=== PATIENT | male | born 1945 | race Caucasian/White ===

== ENCOUNTER 2016-09-09 16:49 | Observation (INO) ==
[2016-09-09] MEDS ORDERED: 0.9 % Sodium Chloride 1,000 ML IVC ONE (16:55)
[2016-09-09 17:49] LABS: Basophils # 0.1 K/mcL (0.0-0.2); Basophils % 0.7 %; Eosinophils # 0.5 K/mcL (0.0-0.6); Eosinophils % 4.7 %; Hematocrit 38.8 % (37.5-50.1); Immature Granulocytes % 0.6 % (0-4); Lymphocytes # 1.9 K/mcL (0.6-4.6); Lymphocytes % 18.9 %; Mean Corpuscular HGB Conc 36.1 g/dL (31.6-35.5); Mean Corpuscular Hemoglobin 30.9 pg (28.0-33.3); Mean Corpuscular Volume 85.7 fL (83.0-100.0); Mean Platelet Volume 10.6 fL (9.4-12.4); Monocytes # 0.7 K/mcL (0.0-1.3); Neutrophils # 6.8 K/mcL (1.6-8.9); Platelet Count 186 K/mcL (140-400); Red Blood Count 4.53 M/mcL (4.19-5.50); Red Cell Distribution Width 12.5 % (11.5-14.5); Segmented Neutrophils % 68.1 %
[2016-09-09 17:56] LABS: BUN/Creatinine Ratio 21 (6-26); Blood Urea Nitrogen 18 mg/dL (8-26); Calcium 9.8 mg/dL (8.6-10.8); Carbon Dioxide 22 mEq/L (19-29); Chloride 105 mEq/L (98-109); Glucose 164 mg/dL (70-99); Osmolality,Calculated 290 (280-300); Potassium 4.2 mEq/L (3.5-4.5); Sodium 137 mEq/L (136-145); eGFR For African Americans > 60 (> 60); eGFR For Non-African Americans > 60 (> 60)
--- NOTE | 2016-09-09 18:24 | Emergency Department Note ---
Disposition Clinical Impression: Syncope and collapse, Minor closed head injury Disposition: Admitted As Inpatient Condition: Good Time of Disposition: 20:05 Syncope HPI - General Chief Complaint: ED Syncope Stated Complaint: Passed out Time Seen by Provider: 09/09/16 16:55 Source: patient, EMS Limitations: no limitations Nursing Notes Reviewed: Yes Vital Signs Reviewed: Yes - History of Present Illness HPI Narrative: 70-year-old male with a history of CAD, insulin-dependent diabetes, hypertension presents to the emergency department after a syncope episode. He was walking around [employer], then he was loading the car and fell to the ground. He did hit the back of his head. Patient states he does not remember the episode and EMS had to help him off the ground. Upon awakening he had a vomiting episode. He does not remember if he had any preceding symptoms but currently he feels generally weak all over. He denies any headache but does have some pain in the back of his head where he denies any neck pain or pain with neck movement. Denies any back pain. Denies any abdominal pain, nausea vomiting. Denies any chest pain, pressure or shortness of breath. Earlier today he was at a urologist office and he had another fall but did not lose consciousness at that time. He reports bladder incontinence and this is why he is seeing the urologist in [place]. He reports chronic lower extremity weakness and went to rehabilitation in the past. Denies any history of a bad back but states he might have herniated disks. The urologist is going to do some sort of nerve testing on his bladder. - Related Data Home Medications Medication Instructions Recorded Confirmed Atorvastatin [Lipitor] 40 mg PO HS 11/27/15 09/09/16 Carvedilol [Coreg] 6.25 mg PO BIDWM 11/27/15 09/09/16 Furosemide [Lasix] 40 mg PO DAILY 11/27/15 09/09/16 Glimepiride [Amaryl] 4 mg PO QAM 11/27/15 09/09/16 Insulin Glargine [Lantus] 65 unit SQ HS 11/27/15 09/09/16 Loratadine [Claritin] 10 mg PO DAILY 11/27/15 09/09/16 Metformin HCl [Glucophage] 1,000 mg PO BID 11/27/15 09/09/16 Potassium Chloride [K-Tab ER] 10 meq PO DAILY 11/27/15 09/09/16 Ropinirole HCl [Requip] 0.25 mg PO HS 11/27/15 09/09/16 Esomeprazole Magnesium [Nexium] 40 mg PO DAILY 02/25/16 09/09/16 Citalopram [CeleXA] 20 mg PO DAILY 04/21/16 09/09/16 Multivitamin [One Daily Essential] 1 tab PO DAILY 04/21/16 09/09/16 HYDROcodone/Acet 7.5/325 mg [[place] 1 tab PO Q6H PRN 09/09/16 09/09/16 7.5-325 mg] Losartan Potassium [Cozaar] 100 mg PO DAILY 09/09/16 09/09/16 Previous Rx's Medication Instructions Recorded Aspirin Enteric Coated [Aspirin EC] 81 mg PO DAILY #30 tablet. 11/28/15 Amitriptyline [Elavil] 25 mg PO QPM #30 tablet 02/27/16 Allergies Allergy/AdvReac Type Severity Reaction Status Date / Time Penicillins [PCN] Allergy Hives Verified 05/01/16 11:33 shellfish derived Allergy Hives Verified 05/01/16 11:33 All systems ED: reviewed and negative except as stated. Constitutional: Denies: fever Cardiovascular: Denies: chest pain Respiratory: Denies: cough, dyspnea Gastrointestinal: Denies: abdominal pain Musculoskeletal: Denies: back pain Neurological: Reports: headache. Denies: numbness Past Medical History - Past Medical History Attestation: Yes The following information was validated with the patient. Medical history: Reports: CHF, diabetes, hyperlipidemia, hypertension Psychiatric history: Reports: depression - Social History Smoking Status: Former smoker Smokeless Tobacco Status: No Alcohol use: Reports: none Drug use: Reports: none Physical Exam General: Appears well, alert and oriented x 3 Cardiovascular: Regular rate and rhythm. S1, S2. No murmurs, rubs or gallops. Respiratory: Breath sounds clear bilaterally. No wheezing, rales or rhonchi. No resp distress Abdomen: Soft, nontender. No guarding, rebound or rigidity. No signs of injury Neck: No midline tenderness, painless range of motion, no midline thoracic or lumbar tenderness Eyes: Conjunctiva clear, pupils equally round and reactive to light, no nystagmus HENT: He has a small abrasion to the occipital/parietal area midline. There is no crepitus or anything to suggest fracture. No oral mucosal lesions. Moist mucous membranes Neuro: Cranial nerves intact. He is able to lift both of his legs off the bed symmetrically with equal strength. Patellar reflexes are 1+ bilaterally and symmetric. Sensation is intact bilaterally including the saddle area. Musculoskeletal: No joint tenderness or swelling. No signs of joint injury Skin: No lesions. No diaphoresis. Normal turgor. Normal color Psych: Appropriate - General Limitations: no limitations General appearance: alert Course Vital Signs Temperature 98.7 F 09/09/16 16:51 Pulse Rate 84 09/09/16 16:51 Respiratory Rate 16 09/09/16 16:51 Blood Pressure 137/90 09/09/16 16:51 O2 Sat by Pulse Oximetry 90 09/09/16 16:51 Temperature 98.7 F 09/09/16 16:51 Pulse Rate 83 09/09/16 18:55 Respiratory Rate 16 09/09/16 19:59 Blood Pressure 133/81 09/09/16 19:59 O2 Sat by Pulse Oximetry 95 09/09/16 18:55 Oxygen Delivery Oxygen Delivery Room Air Syncope - Lab Data Result diagrams: 09/09/16 17:37 09/09/16 17:37 Lab Results 09/09/16 09/09/16 09/09/16 Range/Units 17:37 17:37 17:37 WBC 9.9 (4.3-11.1) K/mcL RBC 4.53 (4.19-5.50) M/mcL Hgb 14.0 (12.9-16.9) g/dL Hct 38.8 (37.5-50.1) % MCV 85.7 (83.0-100.0) fL MCH 30.9 (28.0-33.3) pg MCHC 36.1 H (31.6-35.5) g/dL RDW 12.5 (11.5-14.5) % Plt Count 186 (140-400) K/mcL MPV 10.6 (9.4-12.4) fL Immature Gran % 0.6 (0-4) % Seg Neutrophils % 68.1 % Lymphocytes % 18.9 % Monocytes % 7.0 % Eosinophils % 4.7 % Basophils % 0.7 % Neutrophils # 6.8 (1.6-8.9) K/mcL Lymphocytes # 1.9 (0.6-4.6) K/mcL Monocytes # 0.7 (0.0-1.3) K/mcL Eosinophils # 0.5 (0.0-0.6) K/mcL Basophils # 0.1 (0.0-0.2) K/mcL Sodium 137 (136-145) mEq/L Potassium 4.2 (3.5-4.5) mEq/L Chloride 105 (98-109) mEq/L Carbon Dioxide 22 (19-29) mEq/L BUN 18 (8-26) mg/dL Creatinine 0.86 (0.72-1.25) mg/dL Est GFR ( Amer) > 60 (> 60) Est GFR (Non-Af Amer) > 60 (> 60) BUN/Creatinine Ratio 21 (6-26) Glucose 164 H (70-99) mg/dL Calculated Osmolality 290 (280-300) Calcium 9.8 (8.6-10.8) mg/dL Troponin I 0.00 (0-0.03) ng/mL - EKG Data EKG results narrative: EKG shows a sinus rhythm with a rate of 84 beats a minute. No significant ST elevations. Nonspecific ST changes in the lateral precordial leads. T-wave flattening in lead 3. Left axis deviation. Previous EKG on 02/23/16 which shows similar changes without any acute ischemic changes. Attestation Statement - Attestation Attestation: I examined this patient and my medical decision-making was reviewed with the SENIOR CONSTRUCTION ESTIMATOR/PA/Advanced Practice Nurse/Resident Physician. I agree with the documented findings, disposition and treatment plan as described except to the extent set forth below. 70-year-old male presents to the ED because of syncope. He had 2 separate syncopal episodes about an hour apart today. He has no recollection of the events just knows that he woke up on the ground. His was not sure that she passed out. He struck his head on the second event. Complains of mild headache. Denies associated chest pain, palpitations or dyspnea. No recent change in medications. He has been extremity recent urinary incontinence. No new evolving weakness. No seizure was witnessed. Elderly male in no apparent distress. He is talkative and interactive. Oropharynx clear. Membranes moist. Neck is supple. Chest clear to auscultation bilaterally. Cardiac exam regular without rubs or gallops. Abdomen soft nontender. Extremities warm and dry. No asymmetric edema. No calf tenderness. camp manager was observed and no arrhythmias were detected. CT head was negative for any acute process. Initial ED workup is unremarkable. He will be admitted for further evaluation of syncope.
[2016-09-09] MEDS ORDERED: Naloxone 0.4 MG/ML INJ IVP PRN (22:51)
[2016-09-09] MEDS ORDERED: *HR* Dextrose 50 % in Water (Syg) 50 ML SYRINGE IVP PRN (22:54)
[2016-09-09] MEDS ORDERED: D5% in Water 1,000 ML IVC PRN (22:54)
[2016-09-09] MEDS ORDERED: Dextrose Gel 15 GM PO PRN ×2 (22:54)
--- NOTE | 2016-09-09 22:56 | Internal Med History&Physical ---
Date of Encounter: 09/09/16 Time of Encounter: 22:55 Assessment and Plan (1) Syncope Current visit: Yes Status: Acute Fall / syncope: Pt denies loss of consciousness. He thinks he lost balance - will request PT evaluation. Will need to exclude other possibilities - will trend troponins, check UA, check orthostatic vitals. He had echocardiogram done last year, which reported dilatation of the ascending aorto (pt's reports that he follows with certified drug counselor Dr Villanueva in [place], who evaluates him with echo for his ascending aortic dilatation.). Will request for echo this admission , to exclude worsening of ascending aortic dilatation. Pt had carotid doppler last year, which showed non-stenotic plaques. Qualifiers: Syncope type: unspecified Qualified Code(s): R55 - Syncope and collapse (2) HTN (hypertension) Current visit: Yes Status: Chronic Controlled. Continue home meds. Check orthostatic vitals. Qualifiers: Hypertension type: essential hypertension Qualified Code(s): I10 - Essential (primary) hypertension (3) HLD (hyperlipidemia) Current visit: Yes Status: Chronic Continue home meds Qualifiers: Hyperlipidemia type: unspecified Qualified Code(s): E78.5 - Hyperlipidemia , unspecified (4) Diabetes mellitus Current visit: Yes Status: Chronic Start sliding scale insulin Qualifiers: Diabetes mellitus type: type 2 Diabetes mellitus complication status: with unspecified complications Diabetes mellitus intermediate insulin use: with project coach use Qualified Code(s): E11.8 - Type 2 diabetes mellitus with unspecified complications; Z79.4 - senior living (current) use of insulin Internal Medicine - H&P: HPI Chief complaint: Fall / syncope Admitted From: Emergency Dept Plans for Post Hospital Care: Home History of present illness: Mr. Kahnna is a 70 year old male with history of CAD, insulin-dependent diabetes, hypertension, urinary incontinence presents to the emergency department after 2 episodes of fall/ syncope. This morning, he apparently was walking to the urologists office and apparently he fell down after coming off the truck on a painted surface. No LOC, no injuries and he was able to get up himself. Later he went to [employer] and was loading 36 can pack of pepsi into the truck and apparently fell backwards, hitting his head. He thinks he lost balance. He denies any warning symptoms like dizziness, blurring of vision, chest pain, headache. He denies loss of consciousness. He apparently could not get up by himself and EMS was called. His blood glucose at the scene was 140. He denies any headache, neck pain or pain with neck movement, pain in the hips, chest pain , pressure or shortness of breath, abdominal pain, nausea vomiting, fever, chills, dysuria, hematuria. He was evaluated in the ER and CT head was negative for any acute process. Initial ED workup is unremarkable. He is admitted to the hospitalist service for further w/u and management. Past Med Surg Social Fam HX - Past Medical History Medical history: CHF, diabetes, hyperlipidemia, hypertension Psychiatric history: depression - Social History Smoking Status: Former smoker Smokeless Tobacco Status: No Alcohol use: none Drug use: none - Family History Father Living Status: Hx Family Cancer: Yes Mother Adopted: No Family Member Ethnicity: Non- Living Status: Hx Family Cardiac Disorders: No Hx Family Respiratory Disorders: No Hx Family Cancer: Yes Hx Family GI Disorders: No Hx Family Endocrine Disorder: No Internal Medicine - H&P: Meds Atorvastatin [Lipitor] 40 mg PO HS 11/27/15 [History] Carvedilol [Coreg] 6.25 mg PO BIDWM 11/27/15 [History] Furosemide [Lasix] 40 mg PO DAILY 11/27/15 [History] Glimepiride [Amaryl] 4 mg PO QAM 11/27/15 [History] Insulin Glargine [Lantus] 65 unit SQ HS 11/27/15 [History] Loratadine [Claritin] 10 mg PO DAILY 11/27/15 [History] Metformin HCl [Glucophage] 1,000 mg PO BID 11/27/15 [History] Potassium Chloride [K-Tab ER] 10 meq PO DAILY 11/27/15 [History] Ropinirole HCl [Requip] 0.25 mg PO HS 11/27/15 [History] Aspirin Enteric Coated [Aspirin EC] 81 mg PO DAILY #30 tablet. 11/28/15 [Rx] Esomeprazole Magnesium [Nexium] 40 mg PO DAILY 02/25/16 [History] Amitriptyline [Elavil] 25 mg PO QPM #30 tablet 02/27/16 [Rx] Citalopram [CeleXA] 20 mg PO DAILY 04/21/16 [History] Multivitamin [One Daily Essential] 1 tab PO DAILY 04/21/16 [History] HYDROcodone/Acet 7.5/325 mg [[place] 7.5-325 mg] 1 tab PO Q6H PRN 09/09/16 [ History] Losartan Potassium [Cozaar] 100 mg PO DAILY 09/09/16 [History] Allergies Penicillins [PCN] Allergy (Verified 05/01/16 11:33) Hives shellfish derived Allergy (Verified 05/01/16 11:33) Hives All Systems PM: A 10-system review of systems was performed and is negative for pertinent findings except as documented above in the HPI. - Constitutional Vitals: Temp Pulse Resp BP Pulse Ox 97.6 F 78 16 120/79 94 09/09/16 20:17 09/09/16 20:17 09/09/16 20:17 09/09/16 20:17 09/09/16 20:17 Internal Med - H&P Results - Labs CBC & Chem 7: 09/09/16 17:37 09/09/16 17:37 - EKG Data -: EKG Interpreted by Myself EKG shows normal: sinus rhythm - EKG Data EKG comments: Incomplete RBBB 09/10/16 08:26 - Impressions ITS Impressions Chest X-Ray 09/09/16 16:55 IMPRESSION: Mild left basilar atelectasis. D/ / Tasha Baca MD / Tasha Baca MD Interpreting Provider: Tasha Baca MD Head CT 09/09/16 16:55 IMPRESSION: No acute intracranial abnormality. D/ / Davian Zhao MD / Davian Zhao MD Interpreting Provider: Davian Zhao MD
[2016-09-09] MEDS ORDERED: Insulin LISPRO 300 UNITS/3 ML VIAL SQ SCH (23:00)
[2016-09-10 04:27] LABS: Bilirubin,Urine Negative (Negative); Blood,Urine Negative (Negative); Clarity,Urine Clear (Clear); Color,Urine Yellow (Yellow); Glucose,Urine (UA) 500 mg/dL (Normal); Ketones,Urine Negative (Negative); Leukocyte Esterase,Urine Negative (Negative); Nitrite,Urine Negative (Negative); PH,Urine 5.5 pH Units (5.0-8.0); Protein,Urine 30 mg/dL (Neg-Trace); Specific Gravity,Urine 1.027 (1.010-1.025); Urobilinogen,Urine Normal (Normal)
[2016-09-10] MEDS ORDERED: *HR* HYDROcodone/Acet 7.5/325 mg TABLET PO PRN (04:34)
[2016-09-10 04:41] LABS: WBC,Urine 0-3 per hpf (0-3)
[2016-09-10 04:42] LABS: Bacteria,Urine None Seen per hpf (None-Few); Hyaline Casts,Urine None Seen per lpf (None-Few); RBC,Urine 0-3 per hpf (0-3); Squamous Epithelial Cell,Urine Few per lpf (None-Few)
[2016-09-10] MEDS: Insulin LISPRO 300 UNITS/3 ML VIAL SQ SCH ×3 (08:29→17:05)
[2016-09-10] MEDS ORDERED: Aspirin Enteric Coated 81 MG Tablet PO SCH (09:00)
[2016-09-10] MEDS ORDERED: Furosemide 40 MG TABLET PO SCH (09:00)
[2016-09-10] MEDS ORDERED: Multivit/Ca/Min/Fe/FA 1 TAB TABLET PO SCH (09:00)
--- NOTE | 2016-09-10 12:35 | Electrocardiograph Report ---
[place] [id number] Test Date: 2016-09-09 Pat Name: Pattie Khanna Department: 102 Room: 3B12 Gender: M Resource Coordinator: Mal : 1945 Requested By: Miguel Tian Order Number: [id number] Reading MD: Natalia Villagomez Measurements Intervals [place] Rate: 84 P: 30 SC: 170 QRS: -38 QRSD: 110 T: 20 QT: 370 QTc: 411 Interpretive Statements SINUS RHYTHM MARKED LEFT AXIS DEVIATION [QRS AXIS < -30] INCOMPLETE RIGHT BUNDLE BRANCH BLOCK MODERATE VOLTAGE CRITERIA FOR LVH, CONSIDER NORMAL VARIANT Electronically Signed On 09-10-2016 12:34:19 EDT by Natalia Villagomez
[2016-09-10 14:13] VITALS: BP 124/69
--- NOTE | 2016-09-10 16:20 | Discharge Summary ---
Date of Encounter: 09/10/16 Time of Encounter: 15:45 - Discharge Diagnosis (1) Fall Priority: Primary Status: Acute Comments: Patient has had several mechanical falls in the recent past. Patient denied loss of consciousness. PT recommended outpatient physical therapy which he is currently partaking in. Will continue. Follow up outpatient. (2) HTN (hypertension) Priority: Secondary Status: Chronic Comments: Controlled with his regular home medications, follow-up outpatient Qualifiers: Hypertension type: essential hypertension Qualified Code(s): I10 - Essential (primary) hypertension (3) HLD (hyperlipidemia) Priority: Secondary Status: Chronic Comments: Lipid panel borderline abnormal earlier this year. Recommend continue statin and low-cholesterol diet. Qualifiers: Hyperlipidemia type: unspecified Qualified Code(s): E78.5 - Hyperlipidemia , unspecified (4) CHF (congestive heart failure) Priority: Secondary Status: Chronic Comments: Chronic diastolic heart failure without acute exacerbation. On furosemide at home. Euvolemic and denied shortness of breath during this admission. Follow- up outpatient. Qualifiers: Congestive heart failure type: diastolic Congestive heart failure chronicity: chronic Qualified Code(s): I50.32 - Chronic diastolic (congestive ) heart failure (5) Uncontrolled type II diabetes mellitus Priority: Secondary Status: Chronic Comments: A1c 9.3% earlier this year, recommend continued follow-up outpatient. Qualifiers: Diabetes mellitus complication status: with hyperglycemia Diabetes mellitus fpc insulin use: unspecified fpc insulin use status Qualified Code(s): E11.65 - Type 2 diabetes mellitus with hyperglycemia (6) DVT prophylaxis Priority: Primary Status: Acute Comments: Observation patient - Discharge Medications Home Medications: Atorvastatin [Lipitor] 40 mg PO HS 11/27/15 [History] Carvedilol [Coreg] 6.25 mg PO BIDWM 11/27/15 [History] Furosemide [Lasix] 40 mg PO DAILY 11/27/15 [History] Glimepiride [Amaryl] 4 mg PO QAM 11/27/15 [History] Insulin Glargine [Lantus] 65 unit SQ HS 11/27/15 [History] Loratadine [Claritin] 10 mg PO DAILY 11/27/15 [History] Metformin HCl [Glucophage] 1,000 mg PO BID 11/27/15 [History] Potassium Chloride [K-Tab ER] 10 meq PO DAILY 11/27/15 [History] Ropinirole HCl [Requip] 0.25 mg PO HS 11/27/15 [History] Aspirin Enteric Coated [Aspirin EC] 81 mg PO DAILY #30 tablet. 11/28/15 [Rx] Esomeprazole Magnesium [Nexium] 40 mg PO DAILY 02/25/16 [History] Amitriptyline [Elavil] 25 mg PO QPM #30 tablet 02/27/16 [Rx] Citalopram [CeleXA] 20 mg PO DAILY 04/21/16 [History] Multivitamin [One Daily Essential] 1 tab PO DAILY 04/21/16 [History] HYDROcodone/Acet 7.5/325 mg [[place] 7.5-325 mg] 1 tab PO Q6H PRN 09/09/16 [ History] Losartan Potassium [Cozaar] 100 mg PO DAILY 09/09/16 [History] Allergies/Adverse Reactions: Allergies Penicillins [PCN] Allergy (Verified 05/01/16 11:33) Hives shellfish derived Allergy (Verified 05/01/16 11:33) Hives Procedures/tests Complete & Pending: Procedures Performed prior 72 hours Category Date Time Status EV echocardiogram Routine Y 09/10/16 04:36 Completed Date of admission: 09/09/16 19:52 Primary care physician: Aidan Gomez Consults: 09/09/16 22:54 PT [Consult to Physical Therapy] [CONS] Routine Comment: Evaluate, develop and implement POC Reason for Consult: Falls 09/10/16 14:24 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 to 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 [CONS] Routine Reason for SW Consult: financial concerns Discharging clinician: Maegan Lewis Anticipated date of discharge: 09/10/16 - Patient Status Disposition: Home, Self-Care Condition: Good Functional capacity at discharge: independent ambulation Overall status at discharge: patient is back to baseline - Discharge Instructions Follow Up With: Atilio Lang MD [Primary Care Provider] - Additional Instructions: Follow-up with primary care provider within one to 2 weeks - Diet and Activity Activity: as per physical therapy, increase activity as tolerated Diet: diabetic diet, low fat, low cholesterol, low salt diet Hospital course: Mr. Khanna is a 70 year old male with past medical history of CAD, uncontrolled IDDM 2, hypertension, urinary incontinence, hyperlipidemia, former tobacco abuse. Patient presented to the emergency department after 2 episodes of falls. On the morning of presentation, he was walking to his urologist's office where he fell down when he was climbing out of the truck. He did not lose consciousness and did not suffer any injuries and he was able to get himself up. Later on in the day, he went to [employer] and was putting a 36 Pack of Pepsi and his trunk when he fell backwards and hit his head. He states he lost his balance and tripped. He denied any dizziness, blurred vision, chest pain, headache, or syncope. He states he did not lose consciousness on either fall. But on the second fall, he could not get himself up and at that time the EMS was dispatched. Blood glucose per EMS was 140. Upon presentation , patient denied headache, neck pain, or pain with his neck movement or in his hips. He also denied chest pain, pressure, or shortness of breath. Workup in the emergency department unremarkable. Chest x-ray with mild left lower lobe atelectasis. Head CT negative. Patient was admitted to the hospitalist service for further evaluation and management. Patient was on room air and denies shortness of breath during this admission. Orthostatic vital signs unremarkable. Urinalysis negative for signs of infection. Echocardiogram unremarkable with ejection fraction of 50% and mild diastolic dysfunction. Patient euvolemic on examination throughout this admission. He had no focal neurological weakness is present on examination and tolerated a regular diet while admitted. Patient was seen and evaluated by physical therapy who recommended outpatient physical therapy; patient is already undergoing outpatient physical therapy. Patient was ambulatory around the unit without difficulties. It appears as if these falls are mechanical in nature, recommend continued physical therapy outpatient. He was discharged home in stable condition with close outpatient follow-up recommended. ITS Impressions Chest X-Ray 09/09/16 16:55 IMPRESSION: Mild left basilar atelectasis. D/ / Tasha Baca MD / Tasha Baca MD Interpreting Provider: Tasha Baca MD Head CT 09/09/16 16:55 IMPRESSION: No acute intracranial abnormality. D/ / Davian Zhao MD / Aidan Peoples Interpreting Provider: Davian Zhao MD Echocardiogram impressions: LVEF approximately 50%. Lateral wall not well visualized. No pulmonary hypertension. Mild left ventricular diastolic dysfunction. No significant valvular dysfunction. - Time Spent with Patient Total time spent providing and/or coordinating discharge services: - Constitutional Vitals: Temp Pulse Resp BP Pulse Ox 98.1 F 61 17 124/69 93 09/10/16 14:10 09/10/16 14:10 09/10/16 14:10 09/10/16 14:10 09/10/16 14:10 General appearance: Present: A&O X 3, pleasant, no acute distress, answers questions appropriately - Head Head exam: Present: atraumatic, normocephalic - Eye Eye exam: Present: PERRL, conjuntiva pink, sclera anicteric Pupils: Present: PERRL - Neck Neck exam general surgery: Present: supple, trachea midline. Absent: lymphadenopathy - Respiratory Respiratory exam: Present: CTAB. Absent: accessory muscle use, rales, respiratory distress, rhonchi, wheezes - Cardiovascular Cardiovascular exam: Present: RRR, +S1, +S2. Absent: diastolic murmur, gallop, rubs, systolic murmur - GI/Abdominal GI/Abdominal exam: Present: normal bowel sounds, soft, no peritoneal signs. Absent: distended, tenderness - Extremities Exam Extremities exam: Present: warm, radial pulses palpable and symetrical. Absent : calf tenderness, cyanotic, pedal edema - Neurological Exam Neurological exam: Present: alert, CN II-XII intact, normal gait, oriented X3, no focal deficits, strengths equal and symetr throughout. Absent: pronater drift, facial droop, speech deficit - Skin Skin exam: Present: dry, intact, normal color, warm
[2016-09-10] MEDS ORDERED: Insulin DETEMIR 100 UNIT/ML X5UNITS SQ SCH (21:00)
[2016-09-10] MEDS ORDERED: INSULIN GLARGINE SQ SCH (21:00)
[2016-09-10] MEDS ORDERED: rOPINIRole 0.25 MG TABLET PO SCH (21:00)
== END 2016-09-10 17:35 | disposition home or self-care (01) ==
LOC: 3BNU 16:49 → EMEROO 16:49 → 3BNU 20:10
PROVIDERS: ADMIT Nurse Practitioner Family; ATTEND Nurse Practitioner Family

== ENCOUNTER 2017-06-04 17:44 | Inpatient (IN) ==
--- NOTE | 2017-06-04 17:47 | Emergency Department Note ---
Disposition Clinical Impression: Gait abnormality, Generalized weakness Disposition: Still a Patient Condition: Fair Referrals: Atilio Lang MD [Primary Care Provider] - Forms: ED Satisfaction Letter, Work/School Release General Adult HPI - General Chief complaint: ED General Medical Stated complaint: hyperglycemia Time Seen by Provider: 06/04/17 17:46 - Related Data Home Medications Medication Instructions Recorded Confirmed Atorvastatin [Lipitor] 40 mg PO HS 11/27/15 09/09/16 Carvedilol [Coreg] 6.25 mg PO BIDWM 11/27/15 09/09/16 Furosemide [Lasix] 40 mg PO DAILY 11/27/15 09/09/16 Glimepiride [Amaryl] 4 mg PO QAM 11/27/15 09/09/16 Insulin Glargine [Lantus] 65 unit SQ HS 11/27/15 09/09/16 Loratadine [Claritin] 10 mg PO DAILY 11/27/15 09/09/16 Metformin HCl [Glucophage] 1,000 mg PO BID 11/27/15 09/09/16 Potassium Chloride [K-Tab ER] 10 meq PO DAILY 11/27/15 09/09/16 Ropinirole HCl [Requip] 0.25 mg PO HS 11/27/15 09/09/16 Esomeprazole Magnesium [Nexium] 40 mg PO DAILY 02/25/16 09/09/16 Citalopram [CeleXA] 20 mg PO DAILY 04/21/16 09/09/16 Multivitamin [One Daily Essential] 1 tab PO DAILY 04/21/16 09/09/16 HYDROcodone/Acet 7.5/325 mg [[place] 1 tab PO Q6H PRN 09/09/16 09/09/16 7.5-325 mg] Losartan Potassium [Cozaar] 100 mg PO DAILY 09/09/16 09/09/16 Previous Rx's Medication Instructions Recorded Aspirin Enteric Coated [Aspirin EC] 81 mg PO DAILY #30 tablet. 11/28/15 Amitriptyline [Elavil] 25 mg PO QPM #30 tablet 02/27/16 Allergies Allergy/AdvReac Type Severity Reaction Status Date / Time Penicillins [PCN] Allergy Hives Verified 06/04/17 18:06 shellfish derived Allergy Hives Verified 06/04/17 18:06 Past Medical History - Past Medical History Medical history: Reports: CHF, diabetes, hyperlipidemia, hypertension Psychiatric history: Reports: depression - Social History Smoking Status: Former smoker Smokeless Tobacco Status: No Alcohol use: Reports: none Drug use: Reports: none Course Vital Signs Temperature 98.3 F 06/04/17 17:45 Pulse Rate 110 06/04/17 17:45 Respiratory Rate 20 06/04/17 17:45 Blood Pressure 115/82 06/04/17 17:45 O2 Sat by Pulse Oximetry 97 06/04/17 17:45 Temperature 98.3 F 06/04/17 17:45 Pulse Rate 102 06/04/17 18:40 Respiratory Rate 20 06/04/17 18:40 Blood Pressure 112/91 06/04/17 18:40 O2 Sat by Pulse Oximetry 97 06/04/17 18:40 Oxygen Delivery Oxygen Delivery Room Air Medical Decision Making - Lab Data Result diagrams: 06/04/17 18:07 06/04/17 18:07 Lab Results 06/04/17 06/04/17 06/04/17 Range/Units 18:07 18:07 18:07 WBC 8.3 (4.3-11.1) K/mcL RBC 5.20 (4.19-5.50) M/mcL Hgb 14.9 (12.9-16.9) g/dL Hct 43.7 (37.5-50.1) % MCV 84.0 (83.0-100.0) fL MCH 28.7 (28.0-33.3) pg MCHC 34.1 (31.6-35.5) g/dL RDW 13.2 (11.5-14.5) % Plt Count 253 (140-400) K/mcL MPV 10.5 (9.4-12.4) fL Immature Gran % 0.6 (0-4) % Seg Neutrophils % 66.2 % Lymphocytes % 24.6 % Monocytes % 6.1 % Eosinophils % 1.8 % Basophils % 0.7 % Neutrophils # 5.5 (1.6-8.9) K/mcL Lymphocytes # 2.1 (0.6-4.6) K/mcL Monocytes # 0.5 (0.0-1.3) K/mcL Eosinophils # 0.2 (0.0-0.6) K/mcL Basophils # 0.1 (0.0-0.2) K/mcL Nucleated RBCs/100 WBC 0.2 H (0) /100 WBC Sodium 131 L (136-145) mEq/L Potassium 4.1 (3.5-5.1) mEq/L Chloride 99 (98-107) mEq/L Carbon Dioxide 22 L (23-29) mEq/L BUN 18 (8-23) mg/dL Creatinine 0.87 (0.70-1.30) mg/dL Est GFR ( Amer) > 60 (> 60) Est GFR (Non-Af Amer) > 60 (> 60) BUN/Creatinine Ratio 21 (6-26) Glucose 282 H (70-105) mg/dL Calculated Osmolality 284 (280-300) Lactic Acid 1.5 (0.5-2.2) mmol/L Calcium 10.1 (8.6-10.3) mg/dL Phosphorus 2.0 L (2.7-4.5) mg/dL Magnesium 1.8 (1.6-2.6) mg/dL Total Bilirubin 0.6 (0.3-1.0) mg/dL AST 8 L (13-39) Units/L ALT 8 (7-52) Units/L Alkaline Phosphatase 131 H (34-104) Units/L Creatine Kinase 42 (30-223) Units/L Troponin I (< 0.04) ng/mL Serum Total Protein 7.8 (6.4-8.9) g/dL Albumin 3.6 (3.5-5.7) g/dL Globulin 4.2 H (2.4-3.5) g/dL Albumin/Globulin Ratio 0.9 L (1.1-2.2) TSH 2.219 (0.340-5.600) mcIU/mL Urine Color (Yellow) Urine Clarity (Clear) Urine pH (5.0-8.0) pH Units Ur Specific [place] (1.010-1.025) Urine Protein (Neg-Trace) mg/dL Urine Glucose (UA) (Normal) mg/dL Urine Ketones (Negative) mg/dL Urine Blood (Negative) Urine Nitrite (Negative) Urine Bilirubin (Negative) Urine Urobilinogen (Normal) mg/dL Ur Leukocyte Esterase (Negative) 06/04/17 06/04/17 Range/Units 18:07 18:19 WBC (4.3-11.1) K/mcL RBC (4.19-5.50) M/mcL Hgb (12.9-16.9) g/dL Hct (37.5-50.1) % MCV (83.0-100.0) fL MCH (28.0-33.3) pg MCHC (31.6-35.5) g/dL RDW (11.5-14.5) % Plt Count (140-400) K/mcL MPV (9.4-12.4) fL Immature Gran % (0-4) % Seg Neutrophils % % Lymphocytes % % Monocytes % % Eosinophils % % Basophils % % Neutrophils # (1.6-8.9) K/mcL Lymphocytes # (0.6-4.6) K/mcL Monocytes # (0.0-1.3) K/mcL Eosinophils # (0.0-0.6) K/mcL Basophils # (0.0-0.2) K/mcL Nucleated RBCs/100 WBC (0) /100 WBC Sodium (136-145) mEq/L Potassium (3.5-5.1) mEq/L Chloride (98-107) mEq/L Carbon Dioxide (23-29) mEq/L BUN (8-23) mg/dL Creatinine (0.70-1.30) mg/dL Est GFR ( Amer) (> 60) Est GFR (Non-Af Amer) (> 60) BUN/Creatinine Ratio (6-26) Glucose (70-105) mg/dL Calculated Osmolality (280-300) Lactic Acid (0.5-2.2) mmol/L Calcium (8.6-10.3) mg/dL Phosphorus (2.7-4.5) mg/dL Magnesium (1.6-2.6) mg/dL Total Bilirubin (0.3-1.0) mg/dL AST (13-39) Units/L ALT (7-52) Units/L Alkaline Phosphatase (34-104) Units/L Creatine Kinase (30-223) Units/L Troponin I < 0.03 (< 0.04) ng/mL Serum Total Protein (6.4-8.9) g/dL Albumin (3.5-5.7) g/dL Globulin (2.4-3.5) g/dL Albumin/Globulin Ratio (1.1-2.2) TSH (0.340-5.600) mcIU/mL Urine Color Yellow (Yellow) Urine Clarity Turbid A (Clear) Urine pH 6.0 (5.0-8.0) pH Units Ur Specific [place] > 1.030 H (1.010-1.025) Urine Protein 100 H (Neg-Trace) mg/dL Urine Glucose (UA) 500 H (Normal) mg/dL Urine Ketones 80 H (Negative) mg/dL Urine Blood Trace H (Negative) Urine Nitrite Negative (Negative) Urine Bilirubin Moderate H (Negative) Urine Urobilinogen Normal (Normal) mg/dL Ur Leukocyte Esterase Small H (Negative) Attestation Statement - Attestation Attestation: I examined this patient and my medical decision-making was reviewed with the Resident Physician. I agree with the documented findings, disposition and treatment plan as described except to the extent set forth below. [id number] time provided Patient arrives by EMS from home. Seen in conjunction with the resident physician Dr. Tipton. There is concern for hyperglycemia. Accu-Chek 350+ prehospital. Patient appears in no acute distress on exam Care to be endorsed to Dr. Corona at 19:00 pending labs and reassessment
[2017-06-04 18:20] LABS: Basophils # 0.1 K/mcL (0.0-0.2); Basophils % 0.7 %; Eosinophils # 0.2 K/mcL (0.0-0.6); Eosinophils % 1.8 %; Hematocrit 43.7 % (37.5-50.1); Hemoglobin 14.9 g/dL (12.9-16.9); Immature Granulocytes % 0.6 % (0-4); Lymphocytes # 2.1 K/mcL (0.6-4.6); Lymphocytes % 24.6 %; Mean Corpuscular HGB Conc 34.1 g/dL (31.6-35.5); Mean Corpuscular Hemoglobin 28.7 pg (28.0-33.3); Mean Platelet Volume 10.5 fL (9.4-12.4); Monocytes # 0.5 K/mcL (0.0-1.3); Monocytes % 6.1 %; Neutrophils # 5.5 K/mcL (1.6-8.9); Nucleated Red Blood Cells 0.2 /100 WBC (0); Platelet Count 253 K/mcL (140-400); Red Cell Distribution Width 13.2 % (11.5-14.5); Segmented Neutrophils % 66.2 %
[2017-06-04 18:37] LABS: Alanine Aminotransferase 8 Units/L (7-52); Albumin 3.6 g/dL (3.5-5.7); Albumin/Globulin Ratio 0.9 (1.1-2.2); Alkaline Phosphatase 131 Units/L (34-104); Aspartate Amino Transferase 8 Units/L (13-39); BUN/Creatinine Ratio 21 (6-26); Bilirubin,Total 0.6 mg/dL (0.3-1.0); Blood Urea Nitrogen 18 mg/dL (8-23); Calcium 10.1 mg/dL (8.6-10.3); Carbon Dioxide 22 mEq/L (23-29); Chloride 99 mEq/L (98-107); Creatine Kinase 42 Units/L (30-223); Globulin 4.2 g/dL (2.4-3.5); Glucose 282 mg/dL (70-105); Magnesium 1.8 mg/dL (1.6-2.6); Osmolality,Calculated 284 (280-300); Potassium 4.1 mEq/L (3.5-5.1); Sodium 131 mEq/L (136-145); Total Protein 7.8 g/dL (6.4-8.9); eGFR For Non-African Americans > 60 (> 60)
[2017-06-04 18:38] LABS: Bilirubin,Urine Moderate (Negative); Blood,Urine Trace (Negative); Clarity,Urine Turbid (Clear); Color,Urine Yellow (Yellow); Glucose,Urine (UA) 500 mg/dL (Normal); Ketones,Urine 80 mg/dL (Negative); Leukocyte Esterase,Urine Small (Negative); Nitrite,Urine Negative (Negative); Protein,Urine 100 mg/dL (Neg-Trace); Specific Gravity,Urine > 1.030 (1.010-1.025); Urobilinogen,Urine Normal (Normal)
[2017-06-04 18:40] LABS: Bacteria,Urine Many per hpf (None-Few); Squamous Epithelial Cell,Urine Many per lpf (None-Few); WBC,Urine TNTC per hpf (0-3)
--- NOTE | 2017-06-04 18:42 | Emergency Department Note ---
Disposition Clinical Impression: Gait abnormality, Generalized weakness Disposition: Still a Patient Condition: Fair Referrals: Atilio Lang MD [Primary Care Provider] - Forms: ED Satisfaction Letter, Work/School Release Time of Disposition: 18:47 Weakness HPI - General Chief complaint: ED General Medical Stated complaint: hyperglycemia Time Seen by Provider: 06/04/17 17:46 Source: patient, EMS Limitations: no limitations Nursing Notes Reviewed: Yes Vital Signs Reviewed: Yes - History of Present Illness HPI Narrative: 71-year-old male with history of CHF, previous CVA with right-sided deficits, 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 Per his family he was found down at a couple days ago, unable to stand up, today he is brought in by EMS because his family was able to get him up to walk. They say he has had trouble walking, he is also had urinary retention requiring Monson catheter for several weeks she has had issues with urination and he does have a bladder similar. Patient is a history of CVA but has no new unilateral weakness slurred speech or facial droop. Patient denies recent falls, however he has been on the ground and unable to get up several times throughout the week. He is a poorly controlled diabetic and has had elevated blood sugars in the 200s to 300s lately. He denies chest pain shortness of breath hemoptysis or unilateral leg swelling. Pt Subjective Complaint: generalized weakness/fatigue Onset (ago): hour(s) Duration: gradually worsening Location: generalized Migration: ascending Pain Severity: moderate Pain Scale: 8 Improves with: none Worsens with: none Associated symptoms: Reports: confusion. Denies: chest pain, dark stools, diaphoresis, dysuria, easy bruising, fever/chills, headaches - Related Data Home Medications Medication Instructions Recorded Confirmed Atorvastatin [Lipitor] 40 mg PO HS 11/27/15 09/09/16 Carvedilol [Coreg] 6.25 mg PO BIDWM 11/27/15 09/09/16 Furosemide [Lasix] 40 mg PO DAILY 11/27/15 09/09/16 Glimepiride [Amaryl] 4 mg PO QAM 11/27/15 09/09/16 Insulin Glargine [Lantus] 65 unit SQ HS 11/27/15 09/09/16 Loratadine [Claritin] 10 mg PO DAILY 11/27/15 09/09/16 Metformin HCl [Glucophage] 1,000 mg PO BID 11/27/15 09/09/16 Potassium Chloride [K-Tab ER] 10 meq PO DAILY 11/27/15 09/09/16 Ropinirole HCl [Requip] 0.25 mg PO HS 11/27/15 09/09/16 Esomeprazole Magnesium [Nexium] 40 mg PO DAILY 02/25/16 09/09/16 Citalopram [CeleXA] 20 mg PO DAILY 04/21/16 09/09/16 Multivitamin [One Daily Essential] 1 tab PO DAILY 04/21/16 09/09/16 HYDROcodone/Acet 7.5/325 mg [[place] 1 tab PO Q6H PRN 09/09/16 09/09/16 7.5-325 mg] Losartan Potassium [Cozaar] 100 mg PO DAILY 09/09/16 09/09/16 Previous Rx's Medication Instructions Recorded Aspirin Enteric Coated [Aspirin EC] 81 mg PO DAILY #30 tablet. 11/28/15 Amitriptyline [Elavil] 25 mg PO QPM #30 tablet 02/27/16 Allergies Allergy/AdvReac Type Severity Reaction Status Date / Time Penicillins [PCN] Allergy Hives Verified 06/04/17 18:06 shellfish derived Allergy Hives Verified 06/04/17 18:06 All systems ED: reviewed and negative except as stated. Review of Systems: As Per HPI Constitutional: Reports: as per HPI, weakness. Denies: fever, chills Eyes: Denies: eye pain ENT ED: Denies: ear pain Cardiovascular: Denies: chest pain, palpitations Respiratory: Denies: cough, dyspnea Gastrointestinal: Reports: nausea. Denies: vomiting, hematemesis Genitourinary: Denies: urgency Musculoskeletal: Denies: back pain Integumentary: Denies: rash, abrasion Neurological: Reports: as per HPI, weakness, confusion, abnormal gait. Denies: headache Psychiatric: Denies: anxiety Endocrine: Denies: fatigue Past Medical History - Past Medical History Attestation: Yes The following information was validated with the patient. Source: patient Medical history: Reports: CHF, diabetes, hyperlipidemia, hypertension Psychiatric history: Reports: depression - Social History Smoking Status: Former smoker Smokeless Tobacco Status: No Alcohol use: Reports: none Drug use: Reports: none Physical Exam - General Limitations: no limitations General appearance: alert - Eye Eye exam: Present: normal appearance, PERRL - ENT ENT exam: mucous membranes dry - Neck Neck exam: Present: normal inspection, full ROM - Chest Chest inspection: Present: normal inspection - Respiratory Respiratory exam: Present: normal lung sounds bilaterally - Cardiovascular Cardiovascular exam: Present: regular rate, normal rhythm - Abdominal Exam Abdominal exam: Present: soft Abdominal tenderness: Present: mild - Rectal Exam Human Resource Adviser present during exam: Yes Rectal exam: Present: normal inspection, other (monson in place) - Extremities Exam Extremities exam: Present: normal inspection, full ROM - Back Exam Back exam: Present: tenderness (midline lumbar spin) - Neurological Exam Neurological exam: Present: alert. Absent: oriented X3 (x2) - Expanded Neurological Exam Patient oriented to: Present: person, place Cerebellar function: finger to nose: Normal Motor strength - LUE: 5/5 Motor strength - RUE: 5/5 Motor strength - LLE: 5/5 Motor strength - RLE: 5/5 Coma Scale Eye Opening: Spontaneous Coma Scale Motor Response: Obeys Commands Coma Scale Verbal Response: Oriented Coma Scale Total: 15 - Psychiatric Psychiatric exam: Present: normal affect - Skin Skin exam: Present: warm, dry Course Course Narrative: 71-year-old male with complaint of generalized weakness, he states he has been able walk very well for the last few days. Patient has a history of CVA, but has no unilateral deficits, his NIH is 0, he has equal production leader strength bilaterally he is able to lift his legs, flex and bend at the knee and the hip bilaterally, but am unable to taste test his gait is he states he is too unsteady to stand, his low back tenderness to palpation but no palpable step- off or deformity, regular CT scan of his head abdomen pelvis without contrast as well as lumbar spine CT, basic labs CBC BMP troponin, beta hydroxybutyric acid, urinalysis VBG blood cultures and lactate given generalized weakness and elderly male I think he is likely to be admitted for unable to inability the patient, he will be signed out to and Chon Vital Signs Temperature 98.3 F 06/04/17 17:45 Pulse Rate 110 06/04/17 17:45 Respiratory Rate 20 06/04/17 17:45 Blood Pressure 115/82 06/04/17 17:45 O2 Sat by Pulse Oximetry 97 06/04/17 17:45 Temperature 98.3 F 06/04/17 17:45 Pulse Rate 105 06/04/17 18:00 Respiratory Rate 20 06/04/17 18:00 Blood Pressure 124/88 06/04/17 18:00 O2 Sat by Pulse Oximetry 96 06/04/17 18:10 Oxygen Delivery Oxygen Delivery Room Air Weakness - Differential Diagnosis Differential Diagnosis: Likely: acute myocardial infarction, sepsis/infection, dehydration, metabolic - Medical Records Medical records reviewed: Yes I reviewed the patient's medical records. - Lab Data Lab results reviewed: Yes I reviewed the patient's lab results. Result diagrams: 06/04/17 18:07 06/04/17 18:07 Lab Results 06/04/17 06/04/17 06/04/17 Range/Units 18:07 18:07 18:07 WBC 8.3 (4.3-11.1) K/mcL RBC 5.20 (4.19-5.50) M/mcL Hgb 14.9 (12.9-16.9) g/dL Hct 43.7 (37.5-50.1) % MCV 84.0 (83.0-100.0) fL MCH 28.7 (28.0-33.3) pg MCHC 34.1 (31.6-35.5) g/dL RDW 13.2 (11.5-14.5) % Plt Count 253 (140-400) K/mcL MPV 10.5 (9.4-12.4) fL Immature Gran % 0.6 (0-4) % Seg Neutrophils % 66.2 % Lymphocytes % 24.6 % Monocytes % 6.1 % Eosinophils % 1.8 % Basophils % 0.7 % Neutrophils # 5.5 (1.6-8.9) K/mcL Lymphocytes # 2.1 (0.6-4.6) K/mcL Monocytes # 0.5 (0.0-1.3) K/mcL Eosinophils # 0.2 (0.0-0.6) K/mcL Basophils # 0.1 (0.0-0.2) K/mcL Nucleated RBCs/100 WBC 0.2 H (0) /100 WBC Sodium 131 L (136-145) mEq/L Potassium 4.1 (3.5-5.1) mEq/L Chloride 99 (98-107) mEq/L Carbon Dioxide 22 L (23-29) mEq/L BUN 18 (8-23) mg/dL Creatinine 0.87 (0.70-1.30) mg/dL Est GFR ( Amer) > 60 (> 60) Est GFR (Non-Af Amer) > 60 (> 60) BUN/Creatinine Ratio 21 (6-26) Glucose 282 H (70-105) mg/dL Calculated Osmolality 284 (280-300) Lactic Acid 1.5 (0.5-2.2) mmol/L Calcium 10.1 (8.6-10.3) mg/dL Phosphorus 2.0 L (2.7-4.5) mg/dL Magnesium 1.8 (1.6-2.6) mg/dL Total Bilirubin 0.6 (0.3-1.0) mg/dL AST 8 L (13-39) Units/L ALT 8 (7-52) Units/L Alkaline Phosphatase 131 H (34-104) Units/L Creatine Kinase 42 (30-223) Units/L Serum Total Protein 7.8 (6.4-8.9) g/dL Albumin 3.6 (3.5-5.7) g/dL Globulin 4.2 H (2.4-3.5) g/dL Albumin/Globulin Ratio 0.9 L (1.1-2.2) - Radiology Data Radiology results reviewed: Yes I reviewed the patient's radiology results. - EKG Data EKG attestation: Yes I reviewed and interpreted this EKG. EKG shows normal: sinus rhythm Rate: tachycardia (10 1 bpm AL 171 QRS [address] segment elevations or depressions) [place]/QRS: LBBB - Core Measures AMI Core Measures Followed: No Measure Exclusions: not indicated S.B.A.R. - S.B.A.R. Situation: Demographics, MOA Background: Presenting Complaint, Relevant PMH, Meds, & Allergies Assessment: Vital Signs, Course and respsone to treatment, Exam Concerns, Patient/Family Expectation, Pertinant Lab Results, Outstanding Labs Recommendation: Barrier(s) to disposition, Recommendation based on pending studies, treatments, or consults S.B.A.R. Report Given to: Jessica Reardon Repor Time: 18:47
[2017-06-04] MEDS ORDERED: 0.9 % Sodium Chloride 1,000 ML IVC ONE (18:46)
[2017-06-04 18:52] LABS: Thyroid Stimulating Hormone 2.219 mcIU/mL (0.340-5.600)
[2017-06-04 19:09] LABS: Amorphous Sediment,Urine Few (Few)
[2017-06-04 19:10] LABS: Yeast,Urine Many per hpf (None Seen)
[2017-06-04 19:14] LABS: VBG HCO3 19 mEq/L (21-27); VBG PCO2 39 mmHg (41-51); VBG PO2 55 mmHg (25-50)
[2017-06-04] MEDS ORDERED: cefTRIAXone 1,000 MG in Water for inj. (sterile) 20 ML 10 ML IVP ONE (19:58)
[2017-06-04] MEDS ORDERED: Insulin Regular, Human 100 UNIT/ML IV ONE (19:59)
[2017-06-04] MEDS ORDERED: 0.9 % Sodium Chloride 500 ML IVC ONE (19:59)
--- NOTE | 2017-06-04 20:02 | Emergency Department Note ---
Disposition Clinical Impression: Gait abnormality, Generalized weakness, Hyperglycemia UTI (urinary tract infection) Qualifiers: Urinary tract infection type: site unspecified Hematuria presence: without hematuria Qualified Code(s): N39.0 - Urinary tract infection, site not specified Disposition: Admitted As Inpatient Condition: Fair General Adult HPI - General Chief complaint: ED General Medical Stated complaint: hyperglycemia Time Seen by Provider: 06/04/17 17:46 Source: patient, EMS Limitations: no limitations - History of Present Illness HPI Narrative: Patient was signed by the prior provider. Please see their documentation for complete history and physical. Pain Scale: 8 - Related Data Home Medications Medication Instructions Recorded Confirmed Atorvastatin [Lipitor] 40 mg PO HS 11/27/15 06/04/17 Carvedilol [Coreg] 6.25 mg PO BIDWM 11/27/15 06/04/17 Furosemide [Lasix] 40 mg PO DAILY 11/27/15 06/04/17 Glimepiride [Amaryl] 4 mg PO QAM 11/27/15 06/04/17 Insulin Glargine [Lantus] 30 unit SQ HS 11/27/15 06/04/17 Loratadine [Claritin] 10 mg PO DAILY 11/27/15 06/04/17 Metformin HCl [Glucophage] 1,000 mg PO BID 11/27/15 06/04/17 Potassium Chloride [K-Tab ER] 10 meq PO DAILY 11/27/15 06/04/17 Ropinirole HCl [Requip] 0.25 mg PO HS 11/27/15 06/04/17 Esomeprazole Magnesium [Nexium] 40 mg PO DAILY 02/25/16 06/04/17 Citalopram [CeleXA] 20 mg PO DAILY 04/21/16 06/04/17 Multivitamin [One Daily Essential] 1 tab PO DAILY 04/21/16 06/04/17 HYDROcodone/Acet 7.5/325 mg [[place] 1 tab PO Q6H PRN 09/09/16 06/04/17 7.5-325 mg] Losartan Potassium [Cozaar] 100 mg PO DAILY 09/09/16 06/04/17 Previous Rx's Medication Instructions Recorded Aspirin Enteric Coated [Aspirin EC] 81 mg PO DAILY #30 tablet. 11/28/15 Amitriptyline [Elavil] 25 mg PO QPM #30 tablet 02/27/16 Allergies Allergy/AdvReac Type Severity Reaction Status Date / Time Penicillins [PCN] Allergy Hives Verified 06/04/17 18:06 shellfish derived Allergy Hives Verified 06/04/17 18:06 Constitutional: Reports: as per HPI, weakness. Denies: fever, chills Eyes: Denies: eye pain ENT ED: Denies: ear pain Cardiovascular: Denies: chest pain, palpitations Respiratory: Denies: cough, dyspnea Gastrointestinal: Reports: nausea. Denies: vomiting, hematemesis Genitourinary: Denies: urgency Musculoskeletal: Denies: back pain Integumentary: Denies: rash, abrasion Neurological: Reports: as per HPI, weakness, confusion, abnormal gait. Denies: headache Psychiatric: Denies: anxiety Endocrine: Denies: fatigue Past Medical History - Past Medical History Medical history: Reports: CHF, diabetes, hyperlipidemia, hypertension Psychiatric history: Reports: depression - Social History Smoking Status: Former smoker Smokeless Tobacco Status: No Alcohol use: Reports: none Drug use: Reports: none Physical Exam - General Limitations: no limitations General appearance: alert Course Course Narrative: Patient seen and examined. Patient's in no acute distress. Patient's history provided be the family that he has been generally weak but has been gradual in onset. Family found him a couple days ago on the ground. Patient likely was on the ground for several hours. Patient denies any recurrent falls. Patient' s currently denying any pain. Patient's been having issues with chronic low back pain for several years. Patient also been having urinary retention and recently had an indwelling Chang catheter as well as bladder stimulator. There was concern that the patient has having issues with activities of daily living and does live at home with family assistance. Patient will be admitted to the hospital service for reconditioning, formal PT OT evaluation as well as UTI. - Reevaluation(s) Reevaluation #1: It appears that the patient did convert the A. fib during the emergency department. Patient does have history of A. fib. Patient given IV fluid hydration. Patient noted to be mildly tachycardic. Repeat EKG shows A. fib at a rate of 126. Right bundle branch block. Left axis deviation. Time: 20:36 Vital Signs Temperature 98.3 F 06/04/17 17:45 Pulse Rate 110 06/04/17 17:45 Respiratory Rate 20 06/04/17 17:45 Blood Pressure 115/82 06/04/17 17:45 O2 Sat by Pulse Oximetry 97 06/04/17 17:45 Temperature 98.3 F 06/04/17 17:45 Pulse Rate 134 06/04/17 20:34 Respiratory Rate 18 06/04/17 20:34 Blood Pressure 127/86 06/04/17 20:34 O2 Sat by Pulse Oximetry 95 06/04/17 20:34 Oxygen Delivery Oxygen Delivery Room Air Medical Decision Making - MDM Narrative Medical decision making narrative: Patient presents for concerns of generalized weakness as well as hyperglycemia and gait instability. Patient's workup was initiated by a private provider. Patient had basic labs which included positive ketones hyperglycemia. Patient cannot have an anion gap. Patient urinalysis does show signs of infection. Patient given Rocephin as well as IV fluid hydration and insulin. Patient's head CT and lumbar CT shows no evidence of acute pathology. Patient's been having chronic low back pain as well as urinary retention. Patient would likely benefit from formal PT OT evaluation as well as conditioning and discharge planning. - Lab Data Lab results reviewed: Yes I reviewed the patient's lab results. Result diagrams: 06/04/17 18:07 06/04/17 18:07 Lab Results 06/04/17 06/04/17 06/04/17 Range/Units 18:07 18:07 18:07 WBC 8.3 (4.3-11.1) K/mcL RBC 5.20 (4.19-5.50) M/mcL Hgb 14.9 (12.9-16.9) g/dL Hct 43.7 (37.5-50.1) % MCV 84.0 (83.0-100.0) fL MCH 28.7 (28.0-33.3) pg MCHC 34.1 (31.6-35.5) g/dL RDW 13.2 (11.5-14.5) % Plt Count 253 (140-400) K/mcL MPV 10.5 (9.4-12.4) fL Immature Gran % 0.6 (0-4) % Seg Neutrophils % 66.2 % Lymphocytes % 24.6 % Monocytes % 6.1 % Eosinophils % 1.8 % Basophils % 0.7 % Neutrophils # 5.5 (1.6-8.9) K/mcL Lymphocytes # 2.1 (0.6-4.6) K/mcL Monocytes # 0.5 (0.0-1.3) K/mcL Eosinophils # 0.2 (0.0-0.6) K/mcL Basophils # 0.1 (0.0-0.2) K/mcL Nucleated RBCs/100 WBC 0.2 H (0) /100 WBC VBG pH (7.32-7.42) pH Units VBG pCO2 (41-51) mmHg VBG pO2 (25-50) mmHg VBG HCO3 (21-27) mEq/L Sodium 131 L (136-145) mEq/L Potassium 4.1 (3.5-5.1) mEq/L Chloride 99 (98-107) mEq/L Carbon Dioxide 22 L (23-29) mEq/L BUN 18 (8-23) mg/dL Creatinine 0.87 (0.70-1.30) mg/dL Est GFR ( Amer) > 60 (> 60) Est GFR (Non-Af Amer) > 60 (> 60) BUN/Creatinine Ratio 21 (6-26) Glucose 282 H (70-105) mg/dL Calculated Osmolality 284 (280-300) Lactic Acid 1.5 (0.5-2.2) mmol/L Calcium 10.1 (8.6-10.3) mg/dL Phosphorus 2.0 L (2.7-4.5) mg/dL Magnesium 1.8 (1.6-2.6) mg/dL Total Bilirubin 0.6 (0.3-1.0) mg/dL AST 8 L (13-39) Units/L ALT 8 (7-52) Units/L Alkaline Phosphatase 131 H (34-104) Units/L Creatine Kinase 42 (30-223) Units/L Troponin I (< 0.04) ng/mL Serum Total Protein 7.8 (6.4-8.9) g/dL Albumin 3.6 (3.5-5.7) g/dL Globulin 4.2 H (2.4-3.5) g/dL Albumin/Globulin Ratio 0.9 L (1.1-2.2) Beta-Hydroxybutyric Acd (0.02-0.27) mmol/L TSH 2.219 (0.340-5.600) mcIU/mL Urine Color (Yellow) Urine Clarity (Clear) Urine pH (5.0-8.0) pH Units Ur Specific [place] (1.010-1.025) Urine Protein (Neg-Trace) mg/dL Urine Glucose (UA) (Normal) mg/dL Urine Ketones (Negative) mg/dL Urine Blood (Negative) Urine Nitrite (Negative) Urine Bilirubin (Negative) Urine Urobilinogen (Normal) mg/dL Ur Leukocyte Esterase (Negative) Urine Microscopic RBC (0-3) per hpf Urine Microscopic WBC (0-3) per hpf Ur Squamous Epith Cells (None-Few) per lpf Amorphous Sediment (Few) Urine Bacteria (None-Few) per hpf Hyaline Casts Urine Yeast (None Seen) per hpf Ur Culture Indicated? (NO) 06/04/17 06/04/17 06/04/17 Range/Units 18:07 18:19 18:39 WBC (4.3-11.1) K/mcL RBC (4.19-5.50) M/mcL Hgb (12.9-16.9) g/dL Hct (37.5-50.1) % MCV (83.0-100.0) fL MCH (28.0-33.3) pg MCHC (31.6-35.5) g/dL RDW (11.5-14.5) % Plt Count (140-400) K/mcL MPV (9.4-12.4) fL Immature Gran % (0-4) % Seg Neutrophils % % Lymphocytes % % Monocytes % % Eosinophils % % Basophils % % Neutrophils # (1.6-8.9) K/mcL Lymphocytes # (0.6-4.6) K/mcL Monocytes # (0.0-1.3) K/mcL Eosinophils # (0.0-0.6) K/mcL Basophils # (0.0-0.2) K/mcL Nucleated RBCs/100 WBC (0) /100 WBC VBG pH (7.32-7.42) pH Units VBG pCO2 (41-51) mmHg VBG pO2 (25-50) mmHg VBG HCO3 (21-27) mEq/L Sodium (136-145) mEq/L Potassium (3.5-5.1) mEq/L Chloride (98-107) mEq/L Carbon Dioxide (23-29) mEq/L BUN (8-23) mg/dL Creatinine (0.70-1.30) mg/dL Est GFR ( Amer) (> 60) Est GFR (Non-Af Amer) (> 60) BUN/Creatinine Ratio (6-26) Glucose (70-105) mg/dL Calculated Osmolality (280-300) Lactic Acid (0.5-2.2) mmol/L Calcium (8.6-10.3) mg/dL Phosphorus (2.7-4.5) mg/dL Magnesium (1.6-2.6) mg/dL Total Bilirubin (0.3-1.0) mg/dL AST (13-39) Units/L ALT (7-52) Units/L Alkaline Phosphatase (34-104) Units/L Creatine Kinase (30-223) Units/L Troponin I < 0.03 (< 0.04) ng/mL Serum Total Protein (6.4-8.9) g/dL Albumin (3.5-5.7) g/dL Globulin (2.4-3.5) g/dL Albumin/Globulin Ratio (1.1-2.2) Beta-Hydroxybutyric Acd > 2.00 H (0.02-0.27) mmol/L TSH (0.340-5.600) mcIU/mL Urine Color Yellow (Yellow) Urine Clarity Turbid A (Clear) Urine pH 6.0 (5.0-8.0) pH Units Ur Specific [place] > 1.030 H (1.010-1.025) Urine Protein 100 H (Neg-Trace) mg/dL Urine Glucose (UA) 500 H (Normal) mg/dL Urine Ketones 80 H (Negative) mg/dL Urine Blood Trace H (Negative) Urine Nitrite Negative (Negative) Urine Bilirubin Moderate H (Negative) Urine Urobilinogen Normal (Normal) mg/dL Ur Leukocyte Esterase Small H (Negative) Urine Microscopic RBC 3-5 H (0-3) per hpf Urine Microscopic WBC TNTC H (0-3) per hpf Ur Squamous Epith Cells Many H (None-Few) per lpf Amorphous Sediment Few (Few) Urine Bacteria Many H (None-Few) per hpf Hyaline Casts Test Not Performed Urine Yeast Many H (None Seen) per hpf Ur Culture Indicated? NO. (NO) 06/04/17 Range/Units 19:11 WBC (4.3-11.1) K/mcL RBC (4.19-5.50) M/mcL Hgb (12.9-16.9) g/dL Hct (37.5-50.1) % MCV (83.0-100.0) fL MCH (28.0-33.3) pg MCHC (31.6-35.5) g/dL RDW (11.5-14.5) % Plt Count (140-400) K/mcL MPV (9.4-12.4) fL Immature Gran % (0-4) % Seg Neutrophils % % Lymphocytes % % Monocytes % % Eosinophils % % Basophils % % Neutrophils # (1.6-8.9) K/mcL Lymphocytes # (0.6-4.6) K/mcL Monocytes # (0.0-1.3) K/mcL Eosinophils # (0.0-0.6) K/mcL Basophils # (0.0-0.2) K/mcL Nucleated RBCs/100 WBC (0) /100 WBC VBG pH 7.30 L (7.32-7.42) pH Units VBG pCO2 39 L (41-51) mmHg VBG pO2 55 H (25-50) mmHg VBG HCO3 19 L (21-27) mEq/L Sodium (136-145) mEq/L Potassium (3.5-5.1) mEq/L Chloride (98-107) mEq/L Carbon Dioxide (23-29) mEq/L BUN (8-23) mg/dL Creatinine (0.70-1.30) mg/dL Est GFR ( Amer) (> 60) Est GFR (Non-Af Amer) (> 60) BUN/Creatinine Ratio (6-26) Glucose (70-105) mg/dL Calculated Osmolality (280-300) Lactic Acid (0.5-2.2) mmol/L Calcium (8.6-10.3) mg/dL Phosphorus (2.7-4.5) mg/dL Magnesium (1.6-2.6) mg/dL Total Bilirubin (0.3-1.0) mg/dL AST (13-39) Units/L ALT (7-52) Units/L Alkaline Phosphatase (34-104) Units/L Creatine Kinase (30-223) Units/L Troponin I (< 0.04) ng/mL Serum Total Protein (6.4-8.9) g/dL Albumin (3.5-5.7) g/dL Globulin (2.4-3.5) g/dL Albumin/Globulin Ratio (1.1-2.2) Beta-Hydroxybutyric Acd (0.02-0.27) mmol/L TSH (0.340-5.600) mcIU/mL Urine Color (Yellow) Urine Clarity (Clear) Urine pH (5.0-8.0) pH Units Ur Specific [place] (1.010-1.025) Urine Protein (Neg-Trace) mg/dL Urine Glucose (UA) (Normal) mg/dL Urine Ketones (Negative) mg/dL Urine Blood (Negative) Urine Nitrite (Negative) Urine Bilirubin (Negative) Urine Urobilinogen (Normal) mg/dL Ur Leukocyte Esterase (Negative) Urine Microscopic RBC (0-3) per hpf Urine Microscopic WBC (0-3) per hpf Ur Squamous Epith Cells (None-Few) per lpf Amorphous Sediment (Few) Urine Bacteria (None-Few) per hpf Hyaline Casts Urine Yeast (None Seen) per hpf Ur Culture Indicated? (NO) - Radiology Data Radiology results reviewed: Yes I reviewed the patient's radiology results. Chest X-Ray 06/04/17 18:04 IMPRESSION: 1. No acute cardiopulmonary disease. D/ / Gilles Chery MD / Gilles Chery MD Interpreting Provider: Gilles Chery MD Head CT 06/04/17 18:05 IMPRESSION: No acute intracranial abnormality. Stable chronic findings, as above. D/ / Gabino Bullard / Gabino Bullard Interpreting Provider: Gabino Bullard Abdomen/Pelvis CT 06/04/17 18:38 IMPRESSION: 1. No acute process in the abdomen or pelvis. 2. Chang catheter within a distended bladder. The prostate appears to be normal in size. 3. Punctate bilateral nonobstructive renal calculi. 4. Coronary atherosclerosis. D/ / 06/04/2017 19:25:25 Atilio Guevara MD / uyen Interpreting Provider: Atilio Guevara MD Lumbar Spine CT 06/04/17 18:38 IMPRESSION: 1. No acute process in the abdomen or pelvis. 2. Chang catheter within a distended bladder. The prostate appears to be normal in size. 3. Punctate bilateral nonobstructive renal calculi. 4. Coronary atherosclerosis. D/ / 06/04/2017 19:25:25 Atilio Guevara MD / uyen Interpreting Provider: MD Caron Gagnon - Caron Situation: Demographics Background: Presenting Complaint Assessment: Vital Signs, Course and respsone to treatment, Patient/Family Expectation Recommendation: Barrier(s) to disposition, Recommendation based on pending studies, treatments, or consults S.B.AMarci Report Given to: Dr. Daniel Reardon Repor Time: 20:28
--- NOTE | 2017-06-04 20:11 | Emergency Department Note ---
START Narrative - START START: I examined this patient and my medical decision-making was reviewed with the Resident Physician. I agree with the documented findings, disposition and treatment plan as described except to the extent set forth below. 71 year old male presents to the ED with copmlaints of generalzied weakness and "weakness in his legs" Patinet is a diabetic uncontrolled and noncomplliant. We accepted sign out from the day team (Frankie/Danuta). He has ketones and glucose without gap or acidosis presents. He also has a UTI. We will treat empiricially and admit to medicine. neurolgoically at baseline.
[2017-06-04] MEDS ORDERED: *HR* Metoprolol 5 MG/5 ML VIAL IVP ONE ×2 (20:46→20:48)
[2017-06-04] MEDS ORDERED: *HR* Dextrose 50 % in Water (Syg) 50 ML SYRINGE IVP PRN (21:13)
[2017-06-04] MEDS ORDERED: Dextrose Gel 15 GM/37.5 ML TUBE PO PRN ×2 (21:13)
[2017-06-04] MEDS ORDERED: D5% in Water 1,000 ML IVC PRN (21:13)
--- NOTE | 2017-06-04 21:22 | Internal Med History&Physical ---
Date of Encounter: 06/04/17 Time of Encounter: 21:22 Assessment and Plan (1) Generalized weakness Current visit: Yes Status: Acute Weakness preceded UTI but likely made worse by infection Other than weakness he has no obvious new focal deficits. 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 PT/OT He will likely need rehab (2) UTI (urinary tract infection) Current visit: Yes Status: Acute Urine cultures pending Change Rocephin to Ciprofloxacin Qualifiers: Urinary tract infection type: site unspecified Hematuria presence: without hematuria Qualified Code(s): N39.0 - Urinary tract infection, site not specified (3) Hyperglycemia Current visit: No Status: Acute Check HgbA1c Poor control partially due to infection Continue Metformin Levemir 30 Units Sq QHS Add Med SSI with humalog QAC Repeat beta-Hydroxybutarate (4) HTN (hypertension) Current visit: No Status: Chronic Continue home medications Currently controlled with ARB and Coreg Qualifiers: Hypertension type: essential hypertension Qualified Code(s): I10 - Essential (primary) hypertension (5) CHF exacerbation Current visit: Yes Status: Chronic CHF with exacerbation Check Echo 3+ bilateral pedal edema Stop IVFs Change Lasix to 40 IVP BID Continue Coreg and ARB Watch renal renal function with increased diuresis Recheck K+ and Mag Qualifiers: Heart failure type: unspecified Qualified Code(s): I50.9 - Heart failure, unspecified Internal Medicine - H&P: HPI Chief complaint: Weakness, UTI Admitted From: Emergency Dept Plans for Post Hospital Care: Transfer Inp Rehab Fac History of present illness: The 71-year-old male patient who presented in the ER with profound weakness and an inability to ambulate. He had a fall w/o LOC at home 2 days ago and per pt report was unable to get up for approximately six hours. His renal function remains normal but a myoglobin and CK are still pending. He recalls his knees felt weak and gave out causing him to fall. He denies and injury and is not c/ o hip, back, neck or shoulder pain. He is not c/o chest pain or sob. He denies fever, chills, N/V or diarrhea. He has an indweling Chang catheter and bladder stimulator for urinary retention. He was found to have a UTI and was started on Rocephin. He has DM-II with poor glycemic control and BG levels >300 today. His additional comorbid conditions include a prior stroke with residual right- sided deficits, CHF, essential HTN and dyslipidemia. i Past Med Surg Social Fam HX - Past Medical History Medical history: CHF, diabetes, hyperlipidemia, hypertension Psychiatric history: depression - Social History Smoking Status: Former smoker Smokeless Tobacco Status: No Alcohol use: none Drug use: none - Family History Father Living Status: Hx Family Cancer: Yes Hx Family Endocrine Disorder: Yes Mother Adopted: No Family Member Ethnicity: Non- Living Status: Hx Family Cardiac Disorders: No Hx Family Respiratory Disorders: No Hx Family Cancer: Yes Hx Family GI Disorders: No Hx Family Endocrine Disorder: No Internal Medicine - H&P: Meds Atorvastatin [Lipitor] 40 mg PO HS 11/27/15 [History] Carvedilol [Coreg] 6.25 mg PO BIDWM 11/27/15 [History] Furosemide [Lasix] 40 mg PO DAILY 11/27/15 [History] Glimepiride [Amaryl] 4 mg PO QAM 11/27/15 [History] Insulin Glargine [Lantus] 30 unit SQ HS 11/27/15 [History] Loratadine [Claritin] 10 mg PO DAILY 11/27/15 [History] Metformin HCl [Glucophage] 1,000 mg PO BID 11/27/15 [History] Potassium Chloride [K-Tab ER] 10 meq PO DAILY 11/27/15 [History] Ropinirole HCl [Requip] 0.25 mg PO HS 11/27/15 [History] Aspirin Enteric Coated [Aspirin EC] 81 mg PO DAILY #30 tablet. 11/28/15 [Rx] Esomeprazole Magnesium [Nexium] 40 mg PO DAILY 02/25/16 [History] Amitriptyline [Elavil] 25 mg PO QPM #30 tablet 02/27/16 [Rx] Citalopram [CeleXA] 20 mg PO DAILY 04/21/16 [History] Multivitamin [One Daily Essential] 1 tab PO DAILY 04/21/16 [History] HYDROcodone/Acet 7.5/325 mg [[place] 7.5-325 mg] 1 tab PO Q6H PRN 09/09/16 [ History] Losartan Potassium [Cozaar] 100 mg PO DAILY 09/09/16 [History] 3 Allergy/AdvReac Type Severity Reaction Status Date / Time Penicillins [PCN] Allergy Hives Verified 06/04/17 18:06 shellfish derived Allergy Hives Verified 06/04/17 18:06 All Systems PM: A 10-system review of systems was performed and is negative for pertinent findings except as documented above in the HPI. - Constitutional Constitutional: falls, lethargy, weakness, no anorexia, no chills, no fatigue - EENT Eyes: no blurry vision, no decreased night vision, no diplopia, no loss of vision, no photophobia Nose, mouth and throat: no dysphagia, no facial pain, no mouth lesions, no nasal discharge, no throat swelling, no tongue swelling - Respiratory Respiratory: no cough, no dyspnea, no hemoptysis, no wheezing, no stridor - Gastrointestinal Gastrointestinal: no abdominal pain, no belching, no change in bowel habits, no coffee ground emesis, no fecal incontinence, no hematemesis, no hematochezia, no melena, no vomiting - Integumentary Integumentary IM: no rash, no sores - Neurological Neurological ROS: no abnormal hearing, no disequilibrium, no dizziness, no focal weakness, no paresthesias - Constitutional Vitals: Temp Pulse Resp BP Pulse Ox 98.3 F 134 18 127/86 95 06/04/17 17:45 06/04/17 20:34 06/04/17 20:34 06/04/17 20:34 06/04/17 20:34 General appearance: Present: A&O X 3, no acute distress, answers questions appropriately - Head Head exam: Present: atraumatic, normocephalic - Eye Eye exam: Present: EOMI, PERRL, conjuntiva pink, sclera anicteric Pupils: Present: PERRL - Neck Neck exam general surgery: Present: full ROM, supple, trachea midline. Absent: lymphadenopathy, tenderness, nuchal rigidity - Respiratory Respiratory exam: Present: CTAB. Absent: accessory muscle use, rales, rhonchi, wheezes - Cardiovascular Cardiovascular exam: Present: RRR, +S1, +S2. Absent: diastolic murmur, gallop, rubs, systolic murmur - GI/Abdominal GI/Abdominal exam: Present: normal bowel sounds, soft, no peritoneal signs. Absent: distended, firm, guarding, rebound, rigid, tenderness - Extremities Exam Extremities exam: Present: warm, radial pulses palpable and symmetrical. Absent : calf tenderness, cyanotic, pedal edema - Neurological Exam Neurological exam: Present: CN II-XII intact, motor sensory deficit, oriented X3 , no focal deficits. Absent: pronater drift, facial droop, speech deficit - Skin Skin exam: Present: dry, intact Internal Med - H&P Results - Labs CBC & Chem 7: 06/04/17 18:07 06/04/17 18:07
[2017-06-04 21:59] LABS: Hemoglobin A1C 11.7 %
[2017-06-04] MEDS: Insulin LISPRO 300 UNITS/3 ML VIAL SQ SCH (22:13)
[2017-06-04] MEDS: Insulin DETEMIR 100 UNIT/ML X5UNITS SQ SCH (22:14)
[2017-06-05] MEDS ORDERED: *HR* Metformin 500 MG TABLET PO SCH (08:00)
[2017-06-05] MEDS ORDERED: Furosemide 40 MG/4 ML VIAL IVP SCH (08:00)
[2017-06-05] MEDS: Aspirin Enteric Coated 81 MG Tablet PO SCH (08:32)
[2017-06-05] MEDS: Multivit/Ca/Min/Fe/FA 1 TAB TABLET PO SCH (08:32)
[2017-06-05] MEDS: Loratadine 10 MG TABLET PO SCH (08:33)
[2017-06-05] MEDS: Insulin LISPRO 300 UNITS/3 ML VIAL SQ SCH ×3 (08:33→16:41)
[2017-06-05] MEDS ORDERED: Furosemide 40 MG TABLET PO SCH (09:00)
--- NOTE | 2017-06-05 16:20 | Internal Med Progress Note ---
Date of Encounter: 06/05/17 Time of Encounter: 16:18 - Assessment and plan (1) CHF exacerbation Current Visit: Yes Status: Chronic Assessment and plan: CHF with exacerbation Check Echo 3+ bilateral pedal edema Stop IVFs Change Lasix to 40 IVP BID - patient became hypotensive this afternoon so we will hold further IV Lasix Continue Coreg and ARB - hold overnight and reevaluate tomorrow Monitor labs and renal function K+ 4.1 and Mag 1.8 Daily weights, accurate I's and O's Qualifiers: Heart failure type: unspecified Qualified Code(s): I50.9 - Heart failure, unspecified (2) Diabetes mellitus Current Visit: No Status: Chronic Assessment and plan: Hyperglycemic with glucose of 282 on admission. Hemoglobin A1c is 11.7 Elevation secondary to infection from UTI Accu-Cheks before meals and at bedtime SSI medium dose coverage scale Qualifiers: Diabetes mellitus type: type 2 Diabetes mellitus complication status: with unspecified complications Diabetes mellitus intermediate insulin use: with terminal supervisor use Qualified Code(s): E11.8 - Type 2 diabetes mellitus with unspecified complications; Z79.4 - custodial (current) use of insulin (3) Gait abnormality Current Visit: Yes Status: Acute Assessment and plan: Patient is unstable in his gait and has fallen at home. He told me he has fallen a couple times a week over the last month PT OT evaluation Patient fall risk. (4) Generalized weakness Current Visit: Yes Status: Acute Assessment and plan: PT/OT Multifactorial (5) HTN (hypertension) Current Visit: No Status: Acute Assessment and plan: Patient has history of essential hypertension Blood pressure is rather soft this afternoon so we will hold his antihypertensive agents and monitor until tomorrow and then slowly restart as tolerated. He was diuresed with IV Lasix so we will hold that as well. Qualifiers: Qualified Code(s): I10 - Essential (primary) hypertension (6) UTI (urinary tract infection) Current Visit: Yes Status: Acute Assessment and plan: Urinalysis positive for UTI Urine culture is pending Continue Cipro every 12 hours Qualifiers: Urinary tract infection type: site unspecified Hematuria presence: without hematuria Qualified Code(s): N39.0 - Urinary tract infection, site not specified - Subjective Interval history: Patient is lying in bed and is comfortable. He is a little pale. He states he has been very weak and he has been falling a couple times a week at home. He stated he fell to his knees yesterday. He had fallen a couple days ago and was down for 6 hours. - Constitutional Vitals: Temp Pulse Resp BP Pulse Ox 98 F 81 16 95/60 95 06/05/17 15:44 06/05/17 15:44 06/05/17 15:44 06/05/17 15:44 06/05/17 15:44 General appearance: Present: cooperative, A&O X 3, pleasant, no acute distress, answers questions appropriately - Head Head exam: Present: atraumatic, normocephalic - Eye Eye exam: Present: PERRL, conjuntiva pink, sclera anicteric Pupils: Present: PERRL - Neck Neck exam general surgery: Present: supple, trachea midline. Absent: lymphadenopathy - Respiratory Respiratory exam: Present: decreased breath sounds. Absent: accessory muscle use, chest wall tenderness, rales, respiratory distress, rhonchi, wheezes - Cardiovascular Cardiovascular exam: Present: RRR, +S1, +S2. Absent: diastolic murmur, gallop, rubs, systolic murmur - GI/Abdominal GI/Abdominal exam: Present: normal bowel sounds, soft, no peritoneal signs. Absent: distended, tenderness - Extremities Exam Extremities exam: Present: pedal edema, warm, radial pulses palpable and symmetrical. Absent: calf tenderness, cyanotic - Neurological Exam Neurological exam: Present: abnormal gait, alert, CN II-XII intact, motor sensory deficit, oriented X3. Absent: pronater drift, facial droop, speech deficit - Skin Skin exam: Present: dry, intact, normal color, warm Internal Medicine: Result - Labs CBC & Chem 7: 06/04/17 18:07 06/04/17 18:07 Consult Discharge Plan - Plan Referrals: Atilio Lang MD [Primary Care Provider] -
[2017-06-05] MEDS ORDERED: 0.9 % Sodium Chloride 500 ML IVC ONE (18:32)
[2017-06-05] MEDS ORDERED: 0.9 % Sodium Chloride 500 ML ONE (18:34)
[2017-06-05] MEDS: *HR* HYDROcodone/Acet 7.5/325 mg TABLET PO PRN (20:04)
[2017-06-05] MEDS: Insulin DETEMIR 100 UNIT/ML X5UNITS SQ SCH (21:01)
[2017-06-05] MEDS: rOPINIRole 0.25 MG TABLET PO SCH (21:01)
[2017-06-06 06:14] LABS: Hematocrit 36.9 % (37.5-50.1); Mean Corpuscular HGB Conc 34.4 g/dL (31.6-35.5); Mean Corpuscular Hemoglobin 28.8 pg (28.0-33.3); Mean Corpuscular Volume 83.7 fL (83.0-100.0); Platelet Count 184 K/mcL (140-400); Red Blood Count 4.41 M/mcL (4.19-5.50); Red Cell Distribution Width 13.5 % (11.5-14.5)
[2017-06-06 06:15] LABS: Hemoglobin 12.7 g/dL (12.9-16.9)
[2017-06-06 06:29] LABS: BUN/Creatinine Ratio 24 (6-26); Blood Urea Nitrogen 24 mg/dL (8-23); Carbon Dioxide 21 mEq/L (23-29); Chloride 104 mEq/L (98-107); Glucose 221 mg/dL (70-105); Osmolality,Calculated 287 (280-300); Sodium 133 mEq/L (136-145); eGFR For Non-African Americans > 60 (> 60)
[2017-06-06] MEDS: Loratadine 10 MG TABLET PO SCH (08:08)
[2017-06-06] MEDS: Aspirin Enteric Coated 81 MG Tablet PO SCH (08:08)
[2017-06-06] MEDS: Insulin LISPRO 300 UNITS/3 ML VIAL SQ SCH ×3 (08:08→16:55)
[2017-06-06] MEDS: Multivit/Ca/Min/Fe/FA 1 TAB TABLET PO SCH (08:08)
--- NOTE | 2017-06-06 13:49 | Internal Med Progress Note ---
Date of Encounter: 06/06/17 Time of Encounter: 13:47 - Assessment and plan (1) CHF exacerbation Current Visit: Yes Status: Chronic Assessment and plan: CHF with exacerbation Echo pending 2+ bilateral pedal edema Lasix was 40 IVP BID - patient became hypotensive 06/05/17 and Lasix was held. Restarted 06/06/17 at 20 mg IV twice a day with first dose in the afternoon Continue Coreg and ARB - held overnight 06/05/17 and restarted 06/06/17 Monitor labs and renal function K+ 4.1 and Mag 1.8, K was 3.0 today and replaced. Will recheck in a.m. Daily weights, accurate I's and O's Qualifiers: Heart failure type: unspecified Qualified Code(s): I50.9 - Heart failure, unspecified (2) Diabetes mellitus Current Visit: No Status: Chronic Assessment and plan: Hyperglycemic with glucose of 282 on admission. Hemoglobin A1c is 11.7 Accu-Cheks before meals and at bedtime SSI medium dose coverage scale Qualifiers: Diabetes mellitus type: type 2 Diabetes mellitus complication status: with unspecified complications Diabetes mellitus terminal operator insulin use: with senior care use Qualified Code(s): E11.8 - Type 2 diabetes mellitus with unspecified complications; Z79.4 - terminal computer operator (current) use of insulin (3) Gait abnormality Current Visit: Yes Status: Acute Assessment and plan: Patient is unstable in his gait and has fallen at home. He told me he has fallen a couple times a week over the last month. He is refusing to walk now, he gets from the bed to the chair and asked that. PT OT evaluation Social service evaluation Patient fall risk. (4) Generalized weakness Current Visit: Yes Status: Acute Assessment and plan: PT/OT/ss Multifactorial (5) HTN (hypertension) Current Visit: No Status: Acute Assessment and plan: Patient has history of essential hypertension Blood pressure was rather soft afternoon 06/05/17 so helld his antihypertensive agents and monitored, Restarted 06/06/17. He was diuresed with IV 40 mg Lasix. Held last evening and this morning's dose and we will restart this evening at 20 mg IV twice a day Qualifiers: Qualified Code(s): I10 - Essential (primary) hypertension (6) UTI (urinary tract infection) Current Visit: Yes Status: Acute Assessment and plan: Urinalysis positive for UTI Urine culture was positive for yeast. Veronicaue Cipro Spoke with urology regarding [place] and indwelling catheter as well as report of distended bladder on the CT scan in the ER in a patient with a bladder stimulator. Dr. Bateman from urology stated he would not treat the yeast. He would change the catheter if it has been greater than 1 month or the bladder scan is greater then 1000. The catheter has been draining urine without difficulty while here on the floor. Patient has no urinary symptoms. His white count is normal Dr. Bateman will follow up in the morning Qualifiers: Urinary tract infection type: site unspecified Hematuria presence: without hematuria Qualified Code(s): N39.0 - Urinary tract infection, site not specified (7) Anemia Current Visit: Yes Status: Chronic Assessment and plan: Patient hemoglobin dropped from 14.9-12.7. His baseline is near the 12.7 on historic review Stool for Occult blood is pending. No signs of bleeding. We will continue to monitor and may need a GI consult if continues to drop or if stool is positive for blood. Qualifiers: Anemia type: unspecified type Qualified Code(s): D64.9 - Anemia, unspecified (8) Hypokalemia Current Visit: Yes Status: Acute - Time Spent With Patient Continue scheduled potassium with an additional dose today and recheck in the a.m. - Subjective Interval history: Patient is lying in bed and is comfortable. He is a little pale. He states he has been very weak and he has been falling twice a week at home. He stated he fell to his knees yesterday. He had fallen a couple days ago and was down for 6 hours per his report. - Constitutional Vitals: Temp Pulse Resp BP Pulse Ox 97.9 F 80 14 124/77 96 06/06/17 11:47 06/06/17 11:47 06/06/17 11:47 06/06/17 11:47 06/06/17 11:47 General appearance: Present: cooperative, A&O X 3, pleasant, obese, answers questions appropriately - Head Head exam: Present: atraumatic, normocephalic - Eye Eye exam: Present: PERRL, conjuntiva pink, sclera anicteric Pupils: Present: PERRL - Neck Neck exam general surgery: Present: supple, trachea midline. Absent: lymphadenopathy - Respiratory Respiratory exam: Present: decreased breath sounds. Absent: accessory muscle use, rales, rhonchi, wheezes - Cardiovascular Cardiovascular exam: Present: RRR, +S1, +S2. Absent: diastolic murmur, gallop, rubs, systolic murmur - GI/Abdominal GI/Abdominal exam: Present: normal bowel sounds, soft, no peritoneal signs. Absent: distended, tenderness - Extremities Exam Extremities exam: Present: pedal edema (Generalized weakness), warm, radial pulses palpable and symmetrical. Absent: calf tenderness, cyanotic - Neurological Exam Neurological exam: Present: CN II-XII intact, oriented X3, no focal deficits. Absent: pronater drift, facial droop, speech deficit - Skin Skin exam: Present: dry, intact Internal Medicine: Result - Labs CBC & Chem 7: 06/06/17 04:47 06/06/17 04:47 Labs: Short CBC 06/06/17 Range/Units 04:47 WBC 7.4 (4.3-11.1) K/mcL Hgb 12.7 L D (12.9-16.9) g/dL Hct 36.9 L (37.5-50.1) % Plt Count 184 (140-400) K/mcL BMP 06/06/17 04:47 Sodium 133 L Potassium 3.0 L Chloride 104 Carbon Dioxide 21 L BUN 24 H Creatinine 1.00 Glucose 221 H Calcium 9.0 Consult Discharge Plan - Plan Referrals: Atilio Lang MD [Primary Care Provider] -
[2017-06-06] MEDS: Furosemide 20 MG/2 ML VIAL IVP SCH ×2 (15:51→21:46)
[2017-06-06] MEDS: rOPINIRole 0.25 MG TABLET PO SCH (21:46)
[2017-06-06] MEDS: Insulin DETEMIR 100 UNIT/ML X5UNITS SQ SCH (21:48)
[2017-06-07 05:24] LABS: BUN/Creatinine Ratio 21 (6-26); Blood Urea Nitrogen 20 mg/dL (8-23); Carbon Dioxide 22 mEq/L (23-29); Chloride 102 mEq/L (98-107); Glucose 376 mg/dL (70-105); Osmolality,Calculated 290 (280-300); Potassium 3.3 mEq/L (3.5-5.1); Sodium 131 mEq/L (136-145); eGFR For Non-African Americans > 60 (> 60)
[2017-06-07 05:37] LABS: Hematocrit 36.4 % (37.5-50.1); Hemoglobin 12.5 g/dL (12.9-16.9); Mean Corpuscular HGB Conc 34.3 g/dL (31.6-35.5); Mean Corpuscular Hemoglobin 28.6 pg (28.0-33.3); Mean Corpuscular Volume 83.3 fL (83.0-100.0); Mean Platelet Volume 11.1 fL (9.4-12.4); Platelet Count 172 K/mcL (140-400); Red Blood Count 4.37 M/mcL (4.19-5.50); Red Cell Distribution Width 13.5 % (11.5-14.5)
--- NOTE | 2017-06-07 06:44 | Urology - Consult Note ---
Date of Encounter: 06/07/17 Time of Encounter: 06:42 - Assessment and Plan (1) Incomplete bladder emptying Current Visit: Yes Status: Acute Assessment and plan: I reviewed the CT scan and agree there was evidence of some bladder distention despite the catheter in place. I am not sure this is clinically significant as he has had excellent urine output and a bladder scan was unconcerning. I suspect that the catheter was either kinked or pinched preventing drainage at the time of the CT scan. Clinically the patient's condition is becoming more debilitated. At this point he likely has a neurogenic bladder as a cause of his incomplete emptying. He already has an InterStim in place. Best option at this point would be intermittent catheterization but I am not convinced that he will be able to perform. Keep indwelling catheter in at this time and verify that it is changed every 4 weeks. If patient improves clinically we will attempt voiding trial or intermittent catheterization teaching. He can follow up with our urology service or the outside provider that placed the catheter. We will continue to follow patient while he is in the hospital Urology CN:HPI Consult date: 06/07/17 History of present illness: Patient known to the urology service. History of incomplete emptying. InterStim in place for one year. Has had failing health and increasing debilitation. Chang catheter placed 2-3 weeks ago by outside provider. Unknown residual urine with catheter placement. CT scan at admission demonstrates Chang catheter in place but somewhat distended bladder. Past Med Surg Social Fam HX - Past Medical History Medical history: CHF, diabetes, hyperlipidemia, hypertension Psychiatric history: depression - Social History Smoking Status: Former smoker Smokeless Tobacco Status: No Alcohol use: none Drug use: none - Family History Father Living Status: Hx Family Cancer: Yes Hx Family Endocrine Disorder: Yes Mother Adopted: [place]: RINKU ALEJANDRA Family Member Ethnicity: Non- Living Status: Age at : 87 Cause of : CANCER Hx Family Cardiac Disorders: No Hx Family Respiratory Disorders: No Hx Family Cancer: Yes Hx Family GI Disorders: No Hx Family Genitourinary Disorders: No Hx Family Endocrine Disorder: No Hx Family Musculoskeletal Disorders: No Hx Family Neuromuscular Disorders: No Hx Family Neurologic Disorders: No Hx Family HEENT Disorders: No Hx Family Autoimmune Disorders: No Hx Family Reproductive Disorders: No Hx Family Psychosocial Disorders: No Hx Family Medical Disorders: No Medications and Allergies Atorvastatin [Lipitor] 40 mg PO HS 08/17/16 [History] Carvedilol [Coreg] 6.25 mg PO BIDWM 11/27/15 [History] Furosemide [Lasix] 40 mg PO DAILY 11/27/15 [History] Glimepiride [Amaryl] 4 mg PO QAM 11/27/15 [History] Insulin Glargine [Lantus] 30 unit SQ HS 11/27/15 [History] Loratadine [Claritin] 10 mg PO DAILY 11/27/15 [History] Metformin HCl [Glucophage] 1,000 mg PO BID 11/27/15 [History] Potassium Chloride [K-Tab ER] 10 meq PO DAILY 11/27/15 [History] Ropinirole HCl [Requip] 0.25 mg PO HS 11/27/15 [History] Aspirin Enteric Coated [Aspirin EC] 81 mg PO DAILY #30 tablet. 11/28/15 [Rx] Esomeprazole Magnesium [Nexium] 40 mg PO DAILY 02/25/16 [History] Amitriptyline [Elavil] 25 mg PO QPM #30 tablet 02/27/16 [Rx] Citalopram [CeleXA] 20 mg PO DAILY 04/21/16 [History] Multivitamin [One Daily Essential] 1 tab PO DAILY 04/21/16 [History] HYDROcodone/Acet 7.5/325 mg [[place] 7.5-325 mg] 1 tab PO Q6H PRN 09/09/16 [ History] Losartan Potassium [Cozaar] 100 mg PO DAILY 09/09/16 [History] 3 Allergy/AdvReac Type Severity Reaction Status Date / Time Penicillins [PCN] Allergy Hives Verified 06/04/17 18:06 shellfish derived Allergy Hives Verified 06/04/17 18:06 Review of Systems - Constitutional no chills, no fever(s) - EENT Nose, mouth and throat: no dizziness - Cardiovascular no chest pain - Respiratory no cough - Gastrointestinal no abdominal pain, no fecal incontinence, no nausea - Genitourinary no flank pain - Musculoskeletal back pain - Integumentary no erythema - Neurological confusion - Psychiatric no anxiety - Hematologic/Lymphatic no easy bleeding - Allergic/Immunologic no throat swelling Exam Initial Vital Signs Temp Pulse Resp BP Pulse Ox 98.3 F 110 20 115/82 97 06/04/17 17:45 02/23/18 17:45 06/04/17 17:45 06/04/17 17:45 06/04/17 17:45 - General physical appearance Present: no distress, chronically ill - Eyes Present: PERRL - ENT Present: normal nares - Neck Present: no masses - Respiratory Present: normal respiratory effort - Cardiovascular Cardiovascular exam IM: RRR - Abdomen Abdomen: Present: soft. Absent: masses, suprapubic tenderness - Integumentary Present: no rash - Neurologic Present: normal coordination, confused. Absent: disoriented - Additional Findings Chang catheter with clear urine Urology Results - Labs 06/07/17 03:38 06/07/17 03:38 Abnormal lab results Hgb 12.5 g/dL (12.9-16.9) L 06/07/17 03:38 Hct 36.4 % (37.5-50.1) L 06/07/17 03:38 Nucleated RBCs/100 WBC 0.2 /100 WBC (0) H 06/04/17 18:07 VBG pH 7.30 pH Units (7.32-7.42) L 06/04/17 19:11 VBG pCO2 39 mmHg (41-51) L 06/04/17 19:11 VBG pO2 55 mmHg (25-50) H 06/04/17 19:11 VBG HCO3 19 mEq/L (21-27) L 06/04/17 19:11 Sodium 131 mEq/L (136-145) L 06/07/17 03:38 Potassium 3.3 mEq/L (3.5-5.1) L 06/07/17 03:38 Carbon Dioxide 22 mEq/L (23-29) L 06/07/17 03:38 Glucose 376 mg/dL (70-105) H 06/07/17 03:38 POC Glucose 268 (58-89) H 06/06/17 20:12 Hemoglobin A1c 11.7 % (-5.6) H 06/04/17 18:07 Phosphorus 2.0 mg/dL (2.7-4.5) L 06/04/17 18:07 AST 8 Units/L (13-39) L 06/04/17 18:07 Alkaline Phosphatase 131 Units/L (34-104) H 06/04/17 18:07 Globulin 4.2 g/dL (2.4-3.5) H 06/04/17 18:07 Albumin/Globulin Ratio 0.9 (1.1-2.2) L 06/04/17 18:07 Beta-Hydroxybutyric Acd > 2.00 mmol/L (0.02-0.27) H 06/04/17 18:39 Urine Clarity Turbid (Clear) A 06/04/17 18:19 Ur Specific [place] > 1.030 (1.010-1.025) H 06/04/17 18:19 Urine Protein 100 mg/dL (Neg-Trace) H 06/04/17 18:19 Urine Glucose (UA) 500 mg/dL (Normal) H 06/04/17 18:19 Urine Ketones 80 mg/dL (Negative) H 06/04/17 18:19 Urine Blood Trace (Negative) H 06/04/17 18:19 Urine Bilirubin Moderate (Negative) H 06/04/17 18:19 Ur Leukocyte Esterase Small (Negative) H 06/04/17 18:19 Urine Microscopic RBC 3-5 per hpf (0-3) H 06/04/17 18:19 Urine Microscopic WBC TNTC per hpf (0-3) H 06/04/17 18:19 Ur Squamous Epith Cells Many per lpf (None-Few) H 06/04/17 18:19 Urine Bacteria Many per hpf (None-Few) H 06/04/17 18:19 Urine Yeast Many per hpf (None Seen) H 06/04/17 18:19 Diabetes panel 06/07/17 Range/Units 03:38 Sodium 131 L (136-145) mEq/L Potassium 3.3 L (3.5-5.1) mEq/L Chloride 102 (98-107) mEq/L Carbon Dioxide 22 L (23-29) mEq/L BUN 20 (8-23) mg/dL Creatinine 0.97 (0.70-1.30) mg/dL Glucose 376 H (70-105) mg/dL Calcium 9.0 (8.6-10.3) mg/dL Calcium panel 06/07/17 Range/Units 03:38 Calcium 9.0 (8.6-10.3) mg/dL Pituitary panel 06/07/17 Range/Units 03:38 Sodium 131 L (136-145) mEq/L Potassium 3.3 L (3.5-5.1) mEq/L Chloride 102 (98-107) mEq/L Carbon Dioxide 22 L (23-29) mEq/L BUN 20 (8-23) mg/dL Creatinine 0.97 (0.70-1.30) mg/dL Glucose 376 H (70-105) mg/dL Calcium 9.0 (8.6-10.3) mg/dL Adrenal panel 06/07/17 Range/Units 03:38 Sodium 131 L (136-145) mEq/L Potassium 3.3 L (3.5-5.1) mEq/L Chloride 102 (98-107) mEq/L Carbon Dioxide 22 L (23-29) mEq/L BUN 20 (8-23) mg/dL Creatinine 0.97 (0.70-1.30) mg/dL Glucose 376 H (70-105) mg/dL Calcium 9.0 (8.6-10.3) mg/dL All other labs normal. Consult Discharge Plan - Plan Referrals: Atilio Lang MD [Primary Care Provider] -
[2017-06-07] MEDS: Insulin LISPRO 300 UNITS/3 ML VIAL SQ SCH ×3 (08:06→17:19)
[2017-06-07] MEDS: Loratadine 10 MG TABLET PO SCH (08:06)
[2017-06-07] MEDS: Furosemide 20 MG/2 ML VIAL IVP SCH ×2 (08:07→20:40)
[2017-06-07] MEDS: Aspirin Enteric Coated 81 MG Tablet PO SCH (08:07)
[2017-06-07] MEDS: Multivit/Ca/Min/Fe/FA 1 TAB TABLET PO SCH (08:07)
--- NOTE | 2017-06-07 10:04 | Internal Med Progress Note ---
Date of Encounter: 06/07/17 Time of Encounter: 09:58 - Assessment and plan (1) UTI (urinary tract infection) Current Visit: Yes Status: Acute Assessment and plan: Urinalysis indicative of UTI urine culture was positive for yeast. According to records urology recommending not to treat the yeast advising him to change catheter if it has been in place for over one month worth of bladder scan reveals greater than thousand mL's. Presently the catheter has been draining urine without difficulty. Patient denies any urinary symptoms no leukocytosis no fever Qualifiers: Urinary tract infection type: site unspecified Hematuria presence: without hematuria Qualified Code(s): N39.0 - Urinary tract infection, site not specified (2) Incomplete bladder emptying Current Visit: Yes Status: Acute Assessment and plan: Urology Advises to keep indwelling catheter and at this time-verify changed every 4 weeks Urology recommends once patient has clinically improved attempting voiding trials or intermittent catheterization-he can follow-up with urology as outpatient (3) Gait abnormality Current Visit: Yes Status: Acute Assessment and plan: 1 has had a couple falls over the past last month. He had fallen at home and was down for approximately 6 hours. He had been refusing to walk, patient expressed that he does feel weak .PT and OT evaluate patient today recommending home health. environmental services specialist consulted Fall precautions (4) Generalized weakness Current Visit: Yes Status: Acute Assessment and plan: Encourage patient up to chair as well as PTOT evaluation which recommended home health environmental services specialist evaluation (5) Anemia Current Visit: Yes Status: Chronic Assessment and plan: Upon review appears patient's baseline is 12.7-it appears to be around baseline at 12.5 Awaiting pending occult stool Consult GI as needed Qualifiers: Anemia type: unspecified type Qualified Code(s): D64.9 - Anemia, unspecified (6) CHF exacerbation Current Visit: Yes Status: Chronic Assessment and plan: 1 echo 06/06/2017 with EF 55-60% normal RV size. Functional lobe normal. Mild left ventricular diastolic dysfunction. Mild aortic regurgitation. Mildly calcified and thickened aortic valve leaflets. Trileaflet aortic valve with possible partial fusion of the in cc/RCC. No aortic stenosis. Mild pulmonic regurgitation. No pulmonary hypertension. Dilated aortic root and ascending aorta measuring 4.7 Patient weight is up from yesterday today 95.6 yesterday 94.4-continue to monitor weight daily Continue with Lasix 20 mg IV twice a day Monitor electrolytes and renal function Continue with beta yanique and ARB-presently blood pressures been stable Qualifiers: Heart failure type: unspecified Qualified Code(s): I50.9 - Heart failure, unspecified (7) Diabetes mellitus Current Visit: No Status: Chronic Assessment and plan: Hemoglobin A1c is 11.7- Accu-Cheks before meals at bedtime with medium sliding scale coverage-as well as basal insulin Qualifiers: Diabetes mellitus type: type 2 Diabetes mellitus complication status: with unspecified complications Diabetes mellitus halfway insulin use: with director clinical research use Qualified Code(s): E11.8 - Type 2 diabetes mellitus with unspecified complications; Z79.4 - spectacle truer (current) use of insulin (8) DVT prophylaxis Current Visit: No Status: Acute - Subjective Interval history: This patient is new to me, I have reviewed medical records. Patient feels as if he is weak, participate in PT and tolerated well. Encourage patient to get up for meals. Denies any pain or discomfort at this time - Constitutional Vitals: Temp Pulse Resp BP Pulse Ox 99.1 F 78 18 135/80 92 06/07/17 07:42 06/07/17 08:28 06/07/17 08:28 06/07/17 08:28 06/07/17 08:28 General appearance: Present: cooperative, A&O X 3, pleasant, obese, answers questions appropriately - Head Head exam: Present: atraumatic, normocephalic - Eye Eye exam: Present: PERRL, conjuntiva pink, sclera anicteric Pupils: Present: PERRL - Neck Neck exam general surgery: Present: supple, trachea midline. Absent: lymphadenopathy - Respiratory Respiratory exam: Present: CTAB. Absent: accessory muscle use, rales, rhonchi, wheezes - Cardiovascular Cardiovascular exam: Present: RRR, +S1, +S2. Absent: diastolic murmur, gallop, rubs, systolic murmur - GI/Abdominal GI/Abdominal exam: Present: normal bowel sounds, soft, no peritoneal signs. Absent: distended, tenderness - Additional comments: Chang catheter draining clear yellow urine - Extremities Exam Extremities exam: Present: warm, radial pulses palpable and symmetrical. Absent : calf tenderness, cyanotic, pedal edema - Neurological Exam Neurological exam: Present: CN II-XII intact, oriented X3, no focal deficits. Absent: pronater drift, facial droop, speech deficit Internal Medicine: Result - Labs CBC & Chem 7: 06/07/17 03:38 06/07/17 03:38 Labs: Short CBC 06/07/17 Range/Units 03:38 WBC 6.7 (4.3-11.1) K/mcL Hgb 12.5 L (12.9-16.9) g/dL Hct 36.4 L (37.5-50.1) % Plt Count 172 (140-400) K/mcL BMP 06/07/17 03:38 Sodium 131 L Potassium 3.3 L Chloride 102 Carbon Dioxide 22 L BUN 20 Creatinine 0.97 Glucose 376 H Calcium 9.0 - Impressions Impressions Echocardiogram 06/06/17 07:55 Impressions: LVEF 55-60%. Normal RV size. Function low normal. Mild left ventricular diastolic dysfunction. Mild aortic regurgitation. Mildly calcified and thickened aortic valve leaflets. Trileaflet aortic valve with possible partial fusion of the NCC/RCC. No aortic stenosis. Mild pulmonic regurgitation. No pulmonary hypertension. Dilated aortic root and ascending aorta, measuring 4.[address] imaging. Left Ventricular Wall Motion: Rest Echo Findings All wall segments showed normal motion. Findings: Study Quality * Technically adequate exam. ECG Findings * Normal sinus rhythm. Left Ventricle * LVEF 55-60%. * Normal LV chamber size, wall thickness and function. * Mild left ventricular diastolic dysfunction. Right Ventricle * Normal RV size. Function low normal. Left Atrium * Normal left atrial size. Right Atrium * Normal right atrial size. Aortic Valve * Mild aortic regurgitation. * Trileaflet aortic valve. * Mildly calcified and thickened leaflets. Possible partial fusion of the NCC/RCC. * No aortic stenosis. Mitral Valve * No mitral regurgitation. * No mitral stenosis. * Mild mitral annular calcification * Mildly thickened mitral valve leaflets. Tricuspid Valve * Tricuspid valve not well visualized. * Trace tricuspid regurgitation. Pulmonic Valve * Pulmonic valve is not well visualized. * No pulmonic stenosis. * Mild pulmonic regurgitation. Pulmonary Artery * Pulmonary artery not well visualized. Aorta * Dilated aortic root and ascending aorta, measuring 4.7 cm. Pericardium * There is no pericardial effusion present. Interatrial Septum * No evidence of PFO by color Doppler. IVC * The IVC is not dilated. * Suboptimal sniff. Consult Discharge Plan - Plan Referrals: Atilio Lang MD [Primary Care Provider] -
[2017-06-07] MEDS: *HR* Heparin 5,000 UNIT/ML VIAL SQ SCH (17:19)
[2017-06-07] MEDS: Insulin DETEMIR 100 UNIT/ML X5UNITS SQ SCH (20:40)
[2017-06-07] MEDS: rOPINIRole 0.25 MG TABLET PO SCH (20:40)
[2017-06-08 04:33] LABS: Basophils % 0.6 %; Eosinophils # 0.2 K/mcL (0.0-0.6); Eosinophils % 3.1 %; Hematocrit 36.7 % (37.5-50.1); Hemoglobin 12.7 g/dL (12.9-16.9); Immature Granulocytes % 0.6 % (0-4); Lymphocytes # 2.3 K/mcL (0.6-4.6); Lymphocytes % 31.6 %; Mean Corpuscular HGB Conc 34.6 g/dL (31.6-35.5); Mean Corpuscular Hemoglobin 28.7 pg (28.0-33.3); Mean Platelet Volume 10.8 fL (9.4-12.4); Monocytes # 0.6 K/mcL (0.0-1.3); Monocytes % 8.5 %; Platelet Count 168 K/mcL (140-400); Red Blood Count 4.42 M/mcL (4.19-5.50); Red Cell Distribution Width 13.5 % (11.5-14.5); Segmented Neutrophils % 55.6 %
[2017-06-08 05:12] LABS: BUN/Creatinine Ratio 27 (6-26); Blood Urea Nitrogen 22 mg/dL (8-23); Calcium 9.1 mg/dL (8.6-10.3); Carbon Dioxide 23 mEq/L (23-29); Chloride 102 mEq/L (98-107); Glucose 277 mg/dL (70-105); Osmolality,Calculated 289 (280-300); Potassium 3.3 mEq/L (3.5-5.1); Sodium 133 mEq/L (136-145); eGFR For Non-African Americans > 60 (> 60)
[2017-06-08] MEDS: *HR* Heparin 5,000 UNIT/ML VIAL SQ SCH ×2 (05:17→19:56)
[2017-06-08] MEDS: Loratadine 10 MG TABLET PO SCH (08:05)
[2017-06-08] MEDS: Aspirin Enteric Coated 81 MG Tablet PO SCH (08:05)
[2017-06-08] MEDS: Multivit/Ca/Min/Fe/FA 1 TAB TABLET PO SCH (08:05)
[2017-06-08] MEDS: Furosemide 20 MG/2 ML VIAL IVP SCH (08:08)
[2017-06-08] MEDS: Insulin LISPRO 300 UNITS/3 ML VIAL SQ SCH ×3 (08:09→18:03)
--- NOTE | 2017-06-08 10:32 | Internal Med Progress Note ---
Date of Encounter: 06/08/17 Time of Encounter: 18:59 - Assessment and plan (1) UTI (urinary tract infection) Current Visit: Yes Status: Acute Assessment and plan: Urinalysis indicative of UTI urine culture was positive for yeast. According to records urology recommending not to treat the yeast advising him to change catheter if it has been in place for over one month worth of bladder scan reveals greater than thousand mL's. Presently the catheter has been draining urine without difficulty. Bladder scan reveals less than 5 mL and bladder Patient denies any urinary symptoms no leukocytosis no fever Qualifiers: Urinary tract infection type: site unspecified Hematuria presence: without hematuria Qualified Code(s): N39.0 - Urinary tract infection, site not specified (2) Incomplete bladder emptying Current Visit: Yes Status: Acute Assessment and plan: Urology Advises to keep indwelling catheter and at this time-verify changed every 4 weeks-bladder scan reveals less than 5 mL and bladder Urology recommends once patient has clinically improved attempting voiding trials or intermittent catheterization-he can follow-up with urology as outpatient (3) Gait abnormality Current Visit: Yes Status: Acute Assessment and plan: 1patient continues to feel weak and has difficulty ambulating he has been evaluated for PT and OT for home health however family feels that they cannot take care of him, because they are unable to lift him. We will discuss with social services director a possible placement to ECF and have patient reevaluated by PTOT Fall precautions (4) Generalized weakness Current Visit: Yes Status: Acute Assessment and plan: Encourage patient up to chair as well as PTOT evaluation possible placement to ECF for rehabilitation director clinical information services evaluation (5) Anemia Current Visit: Yes Status: Chronic Assessment and plan: Upon review appears patient's baseline is 12.7-it appears to be around baseline at 12.7 Awaiting pending occult stool Consult GI as needed Qualifiers: Anemia type: unspecified type Qualified Code(s): D64.9 - Anemia, unspecified (6) CHF exacerbation Current Visit: Yes Status: Chronic Assessment and plan: 1 echo 06/06/2017 with EF 55-60% normal RV size. Functional lobe normal. Mild left ventricular diastolic dysfunction. Mild aortic regurgitation. Mildly calcified and thickened aortic valve leaflets. Trileaflet aortic valve with possible partial fusion of the in cc/RCC. No aortic stenosis. Mild pulmonic regurgitation. No pulmonary hypertension. Dilated aortic root and ascending aorta measuring 4.7 Patient weight is is down to 92 kg it was 95 yesterday we will continue to monitor We will place on oral Lasix 20 twice a day Monitor electrolytes and renal function Continue with beta yanique and ARB-presently blood pressures been stable Qualifiers: Heart failure type: unspecified Qualified Code(s): I50.9 - Heart failure, unspecified (7) Diabetes mellitus Current Visit: No Status: Chronic Assessment and plan: Hemoglobin A1c is 11.7- Accu-Cheks before meals at bedtime with medium sliding scale coverage-as well as basal insulin Qualifiers: Diabetes mellitus type: type 2 Diabetes mellitus complication status: with unspecified complications Diabetes mellitus superintendent container terminal insulin use: with superintendent container terminal use Qualified Code(s): E11.8 - Type 2 diabetes mellitus with unspecified complications; Z79.4 - terminologist (current) use of insulin (8) Aortic aneurysm Current Visit: Yes Status: Acute Assessment and plan: 1 This appears to be stable 4.9cm previous today 5.0 we will monitor Qualifiers: Aortic location: thoracic aorta Presence of rupture: without rupture Qualified Code(s): I71.2 - Thoracic aortic aneurysm, without rupture (9) DVT prophylaxis Current Visit: No Status: Acute - Subjective Interval history: Patient has no complaints today denies any pain or discomfort. He continues to feel weak and has difficulty getting out of bed. I did discuss with the family they have concerns about taking patient home and providing care. We will discuss with pillowcase turner as well as have patient reevaluated possible ECF placement for rehabilitation - Constitutional Vitals: Temp Pulse Resp BP Pulse Ox 98 F 88 16 121/82 97 06/08/17 07:23 06/08/17 07:23 06/08/17 07:23 06/08/17 07:23 06/08/17 08:20 General appearance: Present: cooperative, A&O X 3, pleasant, obese, answers questions appropriately - Head Head exam: Present: atraumatic, normocephalic - Eye Eye exam: Present: PERRL, conjuntiva pink, sclera anicteric Pupils: Present: PERRL - Neck Neck exam general surgery: Present: supple, trachea midline. Absent: lymphadenopathy - Respiratory Respiratory exam: Present: CTAB. Absent: accessory muscle use, rales, rhonchi, wheezes - Cardiovascular Cardiovascular exam: Present: RRR, +S1, +S2. Absent: diastolic murmur, gallop, rubs, systolic murmur - GI/Abdominal GI/Abdominal exam: Present: normal bowel sounds, soft, no peritoneal signs. Absent: distended, tenderness - Extremities Exam Extremities exam: Present: warm, radial pulses palpable and symmetrical. Absent : calf tenderness, cyanotic, pedal edema - Neurological Exam Neurological exam: Present: CN II-XII intact, oriented X3, no focal deficits. Absent: pronater drift, facial droop, speech deficit Internal Medicine: Result - Labs CBC & Chem 7: 06/08/17 03:15 06/08/17 03:15 Labs: Short CBC 06/08/17 Range/Units 03:15 WBC 7.2 (4.3-11.1) K/mcL Hgb 12.7 L (12.9-16.9) g/dL Hct 36.7 L (37.5-50.1) % Plt Count 168 (140-400) K/mcL Neutrophils # 4.0 (1.6-8.9) K/mcL BMP 06/08/17 03:15 Sodium 133 L Potassium 3.3 L Chloride 102 Carbon Dioxide 23 BUN 22 Creatinine 0.83 Glucose 277 H Calcium 9.1 - Impressions Impressions Chest CT 06/07/17 13:46 IMPRESSION: 1. No acute cardiopulmonary process. 2. Stable 5.0 cm ascending thoracic aortic aneurysm. This is remeasured on the previous exam at 4.9 cm showing no significant change given the difference in technique. D/ / Ralph Oneill MD / Ralph Oneill MD Interpreting Provider: Ralph Oneill MD - Diagnostic Studies CT scan - chest Additional comments: Chest X-Ray 06/04/17 18:04 IMPRESSION: 1. No acute cardiopulmonary disease. D/ / Gilles Chery MD / Gilles Chery MD Interpreting Provider: Gilles Chery MD Head CT 06/04/17 18:05 IMPRESSION: No acute intracranial abnormality. Stable chronic findings, as above. D/ / Gabino Bullard / Gabino Bullard Interpreting Provider: Gabino Bullard Abdomen/Pelvis CT 06/04/17 18:38 IMPRESSION: 1. No acute process in the abdomen or pelvis. 2. Chang catheter within a distended bladder. The prostate appears to be normal in size. 3. Punctate bilateral nonobstructive renal calculi. 4. Coronary atherosclerosis. D/ / 06/04/2017 19:25:25 Atilio Guevraa MD / uyen Interpreting Provider: Atilio Guevara MD Lumbar Spine CT 06/04/17 18:38 IMPRESSION: 1. No acute process in the abdomen or pelvis. 2. Chang catheter within a distended bladder. The prostate appears to be normal in size. 3. Punctate bilateral nonobstructive renal calculi. 4. Coronary atherosclerosis. D/ / 06/04/2017 19:25:25 Atilio Guevara MD / uyen Interpreting Provider: Atilio Guevara MD Echocardiogram 06/06/17 07:55 Impressions: LVEF 55-60%. Normal RV size. Function low normal. Mild left ventricular diastolic dysfunction. Mild aortic regurgitation. Mildly calcified and thickened aortic valve leaflets. Trileaflet aortic valve with possible partial fusion of the NCC/RCC. No aortic stenosis. Mild pulmonic regurgitation. No pulmonary hypertension. Dilated aortic root and ascending aorta, measuring 4.[address] imaging. Left Ventricular Wall Motion: Rest Echo Findings All wall segments showed normal motion. Findings: Study Quality * Technically adequate exam. ECG Findings * Normal sinus rhythm. Left Ventricle * LVEF 55-60%. * Normal LV chamber size, wall thickness and function. * Mild left ventricular diastolic dysfunction. Right Ventricle * Normal RV size. Function low normal. Left Atrium * Normal left atrial size. Right Atrium * Normal right atrial size. Aortic Valve * Mild aortic regurgitation. * Trileaflet aortic valve. * Mildly calcified and thickened leaflets. Possible partial fusion of the NCC/RCC. * No aortic stenosis. Mitral Valve * No mitral regurgitation. * No mitral stenosis. * Mild mitral annular calcification * Mildly thickened mitral valve leaflets. Tricuspid Valve * Tricuspid valve not well visualized. * Trace tricuspid regurgitation. Pulmonic Valve * Pulmonic valve is not well visualized. * No pulmonic stenosis. * Mild pulmonic regurgitation. Pulmonary Artery * Pulmonary artery not well visualized. Aorta * Dilated aortic root and ascending aorta, measuring 4.7 cm. Pericardium * There is no pericardial effusion present. Interatrial Septum * No evidence of PFO by color Doppler. IVC * The IVC is not dilated. * Suboptimal sniff. Chest CT 06/07/17 13:46 IMPRESSION: 1. No acute cardiopulmonary process. 2. Stable 5.0 cm ascending thoracic aortic aneurysm. This is remeasured on the previous exam at 4.9 cm showing no significant change given the difference in technique. D/ / Ralph Oneill MD / Ralph Oneill MD Interpreting Provider: Ralph Oneill MD Consult Discharge Plan - Plan Referrals: Atilio Lang MD [Primary Care Provider] -
--- NOTE | 2017-06-08 17:46 | Electrocardiograph Report ---
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
--- NOTE | 2017-06-08 17:51 | Electrocardiograph Report ---
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
[2017-06-08] MEDS: Furosemide 20 MG TABLET PO SCH (18:00)
[2017-06-08] MEDS: rOPINIRole 0.25 MG TABLET PO SCH (19:57)
[2017-06-08] MEDS: Insulin DETEMIR 100 UNIT/ML X5UNITS SQ SCH (19:57)
[2017-06-09 04:51] LABS: BUN/Creatinine Ratio 24 (6-26); Blood Urea Nitrogen 20 mg/dL (8-23); Calcium 8.8 mg/dL (8.6-10.3); Carbon Dioxide 25 mEq/L (23-29); Chloride 100 mEq/L (98-107); Glucose 359 mg/dL (70-105); Osmolality,Calculated 287 (280-300); Potassium 3.5 mEq/L (3.5-5.1); Sodium 130 mEq/L (136-145); eGFR For Non-African Americans > 60 (> 60)
[2017-06-09 04:59] LABS: Basophils % 0.6 %; Eosinophils # 0.2 K/mcL (0.0-0.6); Eosinophils % 2.8 %; Hemoglobin 12.7 g/dL (12.9-16.9); Immature Granulocytes % 0.8 % (0-4); Lymphocytes % 31.3 %; Mean Corpuscular HGB Conc 33.4 g/dL (31.6-35.5); Mean Corpuscular Hemoglobin 28.4 pg (28.0-33.3); Mean Platelet Volume 11.1 fL (9.4-12.4); Monocytes # 0.6 K/mcL (0.0-1.3); Monocytes % 9.8 %; Neutrophils # 3.5 K/mcL (1.6-8.9); Platelet Count 155 K/mcL (140-400); Red Blood Count 4.47 M/mcL (4.19-5.50); Red Cell Distribution Width 13.2 % (11.5-14.5); Segmented Neutrophils % 54.7 %
[2017-06-09] MEDS: *HR* Heparin 5,000 UNIT/ML VIAL SQ SCH ×2 (06:58→19:05)
[2017-06-09] MEDS: Furosemide 20 MG TABLET PO SCH ×2 (08:24→19:05)
[2017-06-09] MEDS: Aspirin Enteric Coated 81 MG Tablet PO SCH (08:24)
[2017-06-09] MEDS: Multivit/Ca/Min/Fe/FA 1 TAB TABLET PO SCH (08:24)
[2017-06-09] MEDS: Loratadine 10 MG TABLET PO SCH (08:24)
[2017-06-09] MEDS: Insulin LISPRO 300 UNITS/3 ML VIAL SQ SCH ×3 (08:25→19:03)
--- NOTE | 2017-06-09 15:41 | Internal Med Progress Note ---
Date of Encounter: 06/09/17 Time of Encounter: 15:41 - Assessment and plan (1) UTI (urinary tract infection) Current Visit: Yes Status: Acute Assessment and plan: Urinalysis indicative of UTI urine culture was positive for yeast. According to records urology recommending not to treat the yeast advising him to change catheter if it has been in place for over one month worth of bladder scan reveals greater than thousand mL's. Presently the catheter has been draining urine without difficulty. Bladder scan reveals less than 5 mL and bladder Patient denies any urinary symptoms no leukocytosis no fever- Qualifiers: Urinary tract infection type: site unspecified Hematuria presence: without hematuria Qualified Code(s): N39.0 - Urinary tract infection, site not specified (2) Incomplete bladder emptying Current Visit: Yes Status: Acute Assessment and plan: Urology Advises to keep indwelling catheter and at this time-verify changed every 4 weeks-bladder scan reveals less than 5 mL and bladder Urology recommends once patient has clinically improved attempting voiding trials or intermittent catheterization-he can follow-up with urology as outpatient (3) Gait abnormality Current Visit: Yes Status: Acute Assessment and plan: 1patient continues to feel weak and has difficulty ambulating he has been evaluated for PT and OT for home health however family feels that they cannot take care of him, because they are unable to lift him.Discuss with convention services director who will attempt to place in ECF rehab Fall precautions (4) Generalized weakness Current Visit: Yes Status: Acute (5) Anemia Current Visit: Yes Status: Chronic Assessment and plan: Upon review appears patient's baseline is 12.7-it appears to be around baseline at 12.7 Awaiting pending occult stool Consult GI as needed Qualifiers: Anemia type: unspecified type Qualified Code(s): D64.9 - Anemia, unspecified (6) CHF exacerbation Current Visit: Yes Status: Chronic Assessment and plan: 1 echo 06/06/2017 with EF 55-60% normal RV size. Functional lobe normal. Mild left ventricular diastolic dysfunction. Mild aortic regurgitation. Mildly calcified and thickened aortic valve leaflets. Trileaflet aortic valve with possible partial fusion of the in cc/RCC. No aortic stenosis. Mild pulmonic regurgitation. No pulmonary hypertension. Dilated aortic root and ascending aorta measuring 4.7 Monitor intake and output daily weights We will place on oral Lasix 20 twice a day Monitor electrolytes and renal function Continue with beta yanique and ARB-presently blood pressures been stable Qualifiers: Heart failure type: unspecified Qualified Code(s): I50.9 - Heart failure, unspecified (7) Diabetes mellitus Current Visit: No Status: Chronic Assessment and plan: Hemoglobin A1c is 11.7- Accu-Cheks before meals at bedtime with medium sliding scale coverage-as well as basal insulin Qualifiers: Diabetes mellitus type: type 2 Diabetes mellitus complication status: with unspecified complications Diabetes mellitus senior living insulin use: with senior living use Qualified Code(s): E11.8 - Type 2 diabetes mellitus with unspecified complications; Z79.4 - director long term care (current) use of insulin (8) Aortic aneurysm Current Visit: Yes Status: Acute Assessment and plan: 1 This appears to be stable 4.9cm previous today 5.0 we will monitor Have patient follow up with vascular as out patient Qualifiers: Aortic location: thoracic aorta Presence of rupture: without rupture Qualified Code(s): I71.2 - Thoracic aortic aneurysm, without rupture (9) DVT prophylaxis Current Visit: No Status: Acute - Subjective Interval history: Patient has no complaints today denies any pain or discomfort. He continues to feel weak and has difficulty getting out of bed. I did discuss with the family they have concerns about taking patient home and providing care and don't feel comfortable taking We will discuss with community case manager as well as have patient reevaluated possible ECF placement for rehabilitation. - Constitutional Vitals: Temp Pulse Resp BP Pulse Ox 97.7 F 80 16 97/62 94 06/09/17 14:37 06/09/17 14:37 06/09/17 14:37 06/09/17 14:37 06/09/17 14:37 General appearance: Present: cooperative, A&O X 3, pleasant, obese, answers questions appropriately - Head Head exam: Present: atraumatic, normocephalic - Eye Eye exam: Present: PERRL, conjuntiva pink, sclera anicteric Pupils: Present: PERRL - Neck Neck exam general surgery: Present: supple, trachea midline. Absent: lymphadenopathy - Respiratory Respiratory exam: Present: CTAB. Absent: accessory muscle use, rales, rhonchi, wheezes - Cardiovascular Cardiovascular exam: Present: RRR, +S1, +S2. Absent: diastolic murmur, gallop, rubs, systolic murmur - GI/Abdominal GI/Abdominal exam: Present: normal bowel sounds, soft, no peritoneal signs. Absent: distended, tenderness - Extremities Exam Extremities exam: Present: warm, radial pulses palpable and symmetrical. Absent : calf tenderness, cyanotic, pedal edema - Neurological Exam Neurological exam: Present: CN II-XII intact, oriented X3, no focal deficits. Absent: pronater drift, facial droop, speech deficit - Skin Skin exam: Present: dry, intact Internal Medicine: Result - Labs CBC & Chem 7: 06/09/17 04:15 06/09/17 04:15 Labs: Short CBC 06/09/17 Range/Units 04:15 WBC 6.4 (4.3-11.1) K/mcL Hgb 12.7 L (12.9-16.9) g/dL Hct 38.0 (37.5-50.1) % Plt Count 155 (140-400) K/mcL Neutrophils # 3.5 (1.6-8.9) K/mcL BMP 06/09/17 04:15 Sodium 130 L Potassium 3.5 Chloride 100 Carbon Dioxide 25 BUN 20 Creatinine 0.83 Glucose 359 H Calcium 8.8 Consult Discharge Plan - Plan Referrals: Atilio Lang MD [Primary Care Provider] -
[2017-06-09] MEDS: rOPINIRole 0.25 MG TABLET PO SCH (20:32)
[2017-06-09] MEDS: *HR* HYDROcodone/Acet 7.5/325 mg TABLET PO PRN (20:32)
[2017-06-09] MEDS: Insulin DETEMIR 100 UNIT/ML X5UNITS SQ SCH (21:17)
[2017-06-10] MEDS: *HR* Heparin 5,000 UNIT/ML VIAL SQ SCH ×2 (05:30→19:30)
[2017-06-10] MEDS: Insulin LISPRO 300 UNITS/3 ML VIAL SQ SCH ×3 (08:34→16:42)
[2017-06-10 08:35] LABS: BUN/Creatinine Ratio 26 (6-26); Blood Urea Nitrogen 19 mg/dL (8-23); Calcium 8.8 mg/dL (8.6-10.3); Carbon Dioxide 24 mEq/L (23-29); Chloride 103 mEq/L (98-107); Glucose 259 mg/dL (70-105); Osmolality,Calculated 287 (280-300); Sodium 133 mEq/L (136-145); eGFR For Non-African Americans > 60 (> 60)
[2017-06-10] MEDS: Loratadine 10 MG TABLET PO SCH (08:35)
[2017-06-10] MEDS: Aspirin Enteric Coated 81 MG Tablet PO SCH (08:35)
[2017-06-10] MEDS: Multivit/Ca/Min/Fe/FA 1 TAB TABLET PO SCH (08:35)
[2017-06-10] MEDS ORDERED: Furosemide 20 MG TABLET PO SCH (09:00)
--- NOTE | 2017-06-10 16:18 | Internal Med Progress Note ---
Date of Encounter: 06/10/17 Time of Encounter: 16:15 - Assessment and plan (1) UTI (urinary tract infection) Current Visit: Yes Status: Acute Assessment and plan: Urinalysis indicative of UTI urine culture was positive for yeast. According to records urology recommending not to treat the yeast advising him to change catheter if it has been in place for over one month worth of bladder scan reveals greater than thousand mL's. Presently the catheter has been draining urine without difficulty. Bladder scan reveals less than 5 mL and bladder Patient denies any urinary symptoms no leukocytosis no fever- Qualifiers: Urinary tract infection type: site unspecified Hematuria presence: without hematuria Qualified Code(s): N39.0 - Urinary tract infection, site not specified (2) Incomplete bladder emptying Current Visit: Yes Status: Acute Assessment and plan: Urology Advises to keep indwelling catheter and at this time-verify changed every 4 weeks-bladder scan reveals less than 5 mL and bladder Urology recommends once patient has clinically improved attempting voiding trials or intermittent catheterization-he can follow-up with urology as outpatient (3) Gait abnormality Current Visit: Yes Status: Acute Assessment and plan: 1patient continues to feel weak and has difficulty ambulating he has been evaluated for PT and OT for home health however family feels that they cannot take care of him, because they are unable to lift him.Discuss with medical services assistant who will attempt to place in ECF rehab Fall precautions (4) Generalized weakness Current Visit: Yes Status: Acute Assessment and plan: Encourage patient up to chair as well as PTOT evaluation possible placement to ECF for rehabilitation medical services assistant evaluation (5) Anemia Current Visit: Yes Status: Chronic Assessment and plan: Upon review appears patient's baseline is 12.7-it appears to be around baseline at 12.7 Awaiting pending occult stool Consult GI as needed Qualifiers: Anemia type: unspecified type Qualified Code(s): D64.9 - Anemia, unspecified (6) CHF exacerbation Current Visit: Yes Status: Chronic Assessment and plan: 1 echo 06/06/2017 with EF 55-60% normal RV size. Functional lobe normal. Mild left ventricular diastolic dysfunction. Mild aortic regurgitation. Mildly calcified and thickened aortic valve leaflets. Trileaflet aortic valve with possible partial fusion of the in cc/RCC. No aortic stenosis. Mild pulmonic regurgitation. No pulmonary hypertension. Dilated aortic root and ascending aorta measuring 4.7 Monitor intake and output daily weights We will place on oral Lasix 20 daily Monitor electrolytes and renal function Continue with beta yanique and ARB-presently blood pressures been stable Qualifiers: Heart failure type: unspecified Qualified Code(s): I50.9 - Heart failure, unspecified (7) Diabetes mellitus Current Visit: No Status: Chronic Assessment and plan: Hemoglobin A1c is 11.7- Accu-Cheks before meals at bedtime with medium sliding scale coverage-as well as basal insulin Qualifiers: Diabetes mellitus type: type 2 Diabetes mellitus complication status: with unspecified complications Diabetes mellitus penitentiary insulin use: with penitentiary use Qualified Code(s): E11.8 - Type 2 diabetes mellitus with unspecified complications; Z79.4 - operations research manager (current) use of insulin (8) Aortic aneurysm Current Visit: Yes Status: Acute Assessment and plan: 1 This appears to be stable 4.9cm previous today 5.0 we will monitor Have patient follow up with vascular as out patient Qualifiers: Aortic location: thoracic aorta Presence of rupture: without rupture Qualified Code(s): I71.2 - Thoracic aortic aneurysm, without rupture (9) DVT prophylaxis Current Visit: No Status: Acute - Time Spent With Patient less than 15 minutes - Subjective Interval history: Patient has no complaints today denies any pain or discomfort. He continues to feel weak and has difficulty getting out of bed. Discussed with the patient about possible discharge either to home or to ECF still waiting for acceptance by insurance. Patient verbalized understanding - Constitutional Vitals: Temp Pulse Resp BP Pulse Ox 97.9 F 69 14 107/66 94 06/10/17 15:00 06/10/17 15:00 06/10/17 15:00 06/10/17 15:00 06/10/17 15:00 General appearance: Present: cooperative, A&O X 3, pleasant, obese, answers questions appropriately - Head Head exam: Present: atraumatic, normocephalic - Eye Eye exam: Present: PERRL, conjuntiva pink, sclera anicteric Pupils: Present: PERRL - Neck Neck exam general surgery: Present: supple, trachea midline. Absent: lymphadenopathy - Respiratory Respiratory exam: Present: CTAB. Absent: accessory muscle use, rales, rhonchi, wheezes - Cardiovascular Cardiovascular exam: Present: RRR, +S1, +S2. Absent: diastolic murmur, gallop, rubs, systolic murmur - GI/Abdominal GI/Abdominal exam: Present: normal bowel sounds, soft, no peritoneal signs. Absent: distended, tenderness - Extremities Exam Extremities exam: Present: warm, radial pulses palpable and symmetrical. Absent : calf tenderness, cyanotic, pedal edema - Neurological Exam Neurological exam: Present: CN II-XII intact, oriented X3, no focal deficits. Absent: pronater drift, facial droop, speech deficit - Skin Skin exam: Present: dry, intact Internal Medicine: Result - Labs CBC & Chem 7: 06/09/17 04:15 06/10/17 08:00 Labs: BMP 06/10/17 08:00 Sodium 133 L Potassium 4.0 Chloride 103 Carbon Dioxide 24 BUN 19 Creatinine 0.72 Glucose 259 H Calcium 8.8 Consult Discharge Plan - Plan Referrals: Atilio Lang MD [Primary Care Provider] -
[2017-06-10] MEDS: rOPINIRole 0.25 MG TABLET PO SCH (21:58)
[2017-06-10] MEDS: Insulin DETEMIR 100 UNIT/ML X5UNITS SQ SCH (21:58)
[2017-06-11] MEDS: *HR* Heparin 5,000 UNIT/ML VIAL SQ SCH ×2 (05:42→17:01)
[2017-06-11] MEDS: Loratadine 10 MG TABLET PO SCH (08:42)
[2017-06-11] MEDS: Multivit/Ca/Min/Fe/FA 1 TAB TABLET PO SCH (08:43)
[2017-06-11] MEDS: Aspirin Enteric Coated 81 MG Tablet PO SCH (08:43)
[2017-06-11] MEDS: Insulin LISPRO 300 UNITS/3 ML VIAL SQ SCH ×3 (08:43→17:01)
--- NOTE | 2017-06-11 18:10 | Internal Med Progress Note ---
Date of Encounter: 06/11/17 Time of Encounter: 09:00 - Assessment and plan (1) UTI (urinary tract infection) Current Visit: Yes Status: Acute Assessment and plan: Urinalysis indicative of UTI urine culture was positive for yeast. According to records urology recommending not to treat the yeast advising him to change catheter if it has been in place for over one month worth of bladder scan reveals greater than thousand mL's. Presently the catheter has been draining urine without difficulty. Bladder scan reveals less than 5 mL and bladder Patient denies any urinary symptoms no leukocytosis no fever-we will change catheter prior to discharge Qualifiers: Urinary tract infection type: site unspecified Hematuria presence: without hematuria Qualified Code(s): N39.0 - Urinary tract infection, site not specified (2) Incomplete bladder emptying Current Visit: Yes Status: Acute Assessment and plan: Urology Advises to keep indwelling catheter and at this time-verify changed every 4 weeks-bladder scan reveals less than 5 mL and bladder Urology recommends once patient has clinically improved attempting voiding trials or intermittent catheterization-he can follow-up with urology as outpatient (3) Gait abnormality Current Visit: Yes Status: Acute Assessment and plan: 1patient continues to feel weak and has difficulty ambulating he has been evaluated for PT and OT for home health however family feels that they cannot take care of him, because they are unable to lift him.Discuss with supervisor volunteer services who will attempt to place in ECF rehab-still waiting for approval from insurance for ECF placement Fall precautions (4) Generalized weakness Current Visit: Yes Status: Acute Assessment and plan: Encourage patient up to chair as well as PTOT evaluation possible placement to ECF for rehabilitation supervisor volunteer services evaluation (5) Anemia Current Visit: Yes Status: Chronic Assessment and plan: Upon review appears patient's baseline is 12.7-it appears to be around baseline Awaiting pending occult stool Consult GI as needed Qualifiers: Anemia type: unspecified type Qualified Code(s): D64.9 - Anemia, unspecified (6) CHF exacerbation Current Visit: Yes Status: Chronic Assessment and plan: 1 echo 06/06/2017 with EF 55-60% normal RV size. Functional lobe normal. Mild left ventricular diastolic dysfunction. Mild aortic regurgitation. Mildly calcified and thickened aortic valve leaflets. Trileaflet aortic valve with possible partial fusion of the in cc/RCC. No aortic stenosis. Mild pulmonic regurgitation. No pulmonary hypertension. Dilated aortic root and ascending aorta measuring 4.7 Monitor intake and output daily weights We will place on oral Lasix 20 daily Monitor electrolytes and renal function Continue with beta yanique and ARB-presently blood pressures been stable Qualifiers: Heart failure type: unspecified Qualified Code(s): I50.9 - Heart failure, unspecified (7) Diabetes mellitus Current Visit: No Status: Chronic Assessment and plan: Hemoglobin A1c is 11.7- Accu-Cheks before meals at bedtime with medium sliding scale coverage-as well as basal insulin Qualifiers: Diabetes mellitus type: type 2 Diabetes mellitus complication status: with unspecified complications Diabetes mellitus laborer electroplating insulin use: with residential use Qualified Code(s): E11.8 - Type 2 diabetes mellitus with unspecified complications; Z79.4 - skilled nursing (current) use of insulin (8) Aortic aneurysm Current Visit: Yes Status: Acute Assessment and plan: 1 This appears to be stable 4.9cm previous today 5.0 we will monitor Have patient follow up with vascular as out patient Qualifiers: Aortic location: thoracic aorta Presence of rupture: without rupture Qualified Code(s): I71.2 - Thoracic aortic aneurysm, without rupture (9) DVT prophylaxis Current Visit: No Status: Acute - Time Spent With Patient less than 15 minutes - Subjective Interval history: Patient has no complaints today denies any pain or discomfort. Basically unchanged from yesterday. Still awaiting approval for ECF placement - Constitutional Vitals: Temp Pulse Resp BP Pulse Ox 97.4 F L 76 14 109/71 94 06/11/17 15:00 06/11/17 15:00 06/11/17 15:00 06/11/17 15:00 06/11/17 15:00 General appearance: Present: cooperative, A&O X 3, pleasant, obese, answers questions appropriately - Head Head exam: Present: atraumatic, normocephalic - Eye Eye exam: Present: PERRL, conjuntiva pink, sclera anicteric Pupils: Present: PERRL - Neck Neck exam general surgery: Present: supple, trachea midline. Absent: lymphadenopathy - Respiratory Respiratory exam: Present: CTAB. Absent: accessory muscle use, rales, rhonchi, wheezes - Cardiovascular Cardiovascular exam: Present: RRR, +S1, +S2. Absent: diastolic murmur, gallop, rubs, systolic murmur - GI/Abdominal GI/Abdominal exam: Present: normal bowel sounds, soft, no peritoneal signs. Absent: distended, tenderness - Extremities Exam Extremities exam: Present: warm, radial pulses palpable and symmetrical. Absent : calf tenderness, cyanotic, pedal edema - Neurological Exam Neurological exam: Present: CN II-XII intact, oriented X3, no focal deficits. Absent: pronater drift, facial droop, speech deficit - Skin Skin exam: Present: dry, intact Internal Medicine: Result - Labs CBC & Chem 7: 06/09/17 04:15 06/10/17 08:00 Consult Discharge Plan - Plan Referrals: Atilio Lang MD [Primary Care Provider] -
[2017-06-11] MEDS: Insulin DETEMIR 100 UNIT/ML X5UNITS SQ SCH (21:31)
[2017-06-11] MEDS: rOPINIRole 0.25 MG TABLET PO SCH (21:31)
[2017-06-12] MEDS: *HR* Heparin 5,000 UNIT/ML VIAL SQ SCH ×2 (05:14→17:10)
[2017-06-12] MEDS: Insulin LISPRO 300 UNITS/3 ML VIAL SQ SCH ×3 (08:01→17:10)
[2017-06-12] MEDS: Loratadine 10 MG TABLET PO SCH (08:02)
[2017-06-12] MEDS: Multivit/Ca/Min/Fe/FA 1 TAB TABLET PO SCH (08:02)
[2017-06-12] MEDS: Aspirin Enteric Coated 81 MG Tablet PO SCH (08:03)
--- NOTE | 2017-06-12 14:25 | Internal Med Progress Note ---
Date of Encounter: 06/12/17 Time of Encounter: 14:22 - Assessment and plan (1) UTI (urinary tract infection) Current Visit: Yes Status: Acute Assessment and plan: Urinalysis indicative of UTI urine culture was positive for yeast. According to records urology recommending not to treat the yeast advising him to change catheter if it has been in place for over one month worth of bladder scan reveals greater than thousand mL's. Presently the catheter has been draining urine without difficulty. Bladder scan reveals less than 5 mL and bladder Patient denies any urinary symptoms no leukocytosis no fever-catheter changed Qualifiers: Urinary tract infection type: site unspecified Hematuria presence: without hematuria Qualified Code(s): N39.0 - Urinary tract infection, site not specified (2) Incomplete bladder emptying Current Visit: Yes Status: Acute Assessment and plan: Urology Advises to keep indwelling catheter and at this time-verify changed every 4 weeks-bladder scan reveals less than 5 mL and bladder Urology recommends once patient has clinically improved attempting voiding trials or intermittent catheterization-he can follow-up with urology as outpatient (3) Gait abnormality Current Visit: Yes Status: Acute Assessment and plan: 1patient continues to feel weak and has difficulty ambulating he has been evaluated for PT and OT for home health however family feels that they cannot take care of him, because they are unable to lift him.Discuss with vp marketing services and skin who will attempt to place in ECF rehab-still waiting for approval from insurance for ECF placement Fall precautions (4) Generalized weakness Current Visit: Yes Status: Acute Assessment and plan: Encourage patient up to chair as well as PTOT evaluation possible placement to ECF for rehabilitation vp marketing services and skin evaluation (5) Anemia Current Visit: Yes Status: Chronic Assessment and plan: Upon review appears patient's baseline is 12.7-it appears to be around baseline Awaiting pending occult stool Consult GI as needed Qualifiers: Anemia type: unspecified type Qualified Code(s): D64.9 - Anemia, unspecified (6) CHF exacerbation Current Visit: Yes Status: Chronic Assessment and plan: 1 echo 06/06/2017 with EF 55-60% normal RV size. Functional lobe normal. Mild left ventricular diastolic dysfunction. Mild aortic regurgitation. Mildly calcified and thickened aortic valve leaflets. Trileaflet aortic valve with possible partial fusion of the in cc/RCC. No aortic stenosis. Mild pulmonic regurgitation. No pulmonary hypertension. Dilated aortic root and ascending aorta measuring 4.7 Monitor intake and output daily weights We will place on oral Lasix 20 daily Monitor electrolytes and renal function Continue with beta yanique and ARB-presently blood pressures been stable Qualifiers: Heart failure type: unspecified Qualified Code(s): I50.9 - Heart failure, unspecified (7) Diabetes mellitus Current Visit: No Status: Chronic Assessment and plan: Hemoglobin A1c is 11.7- Accu-Cheks before meals at bedtime with medium sliding scale coverage-as well as basal insulin - BS around 200-300 we will increase basal insulin to 35units at night Qualifiers: Diabetes mellitus type: type 2 Diabetes mellitus complication status: with unspecified complications Diabetes mellitus snf insulin use: with snf use Qualified Code(s): E11.8 - Type 2 diabetes mellitus with unspecified complications; Z79.4 - halfway (current) use of insulin (8) Aortic aneurysm Current Visit: Yes Status: Acute Assessment and plan: 1 This appears to be stable 4.9cm previous today 5.0 we will monitor Have patient follow up with vascular as out patient. Qualifiers: Aortic location: thoracic aorta Presence of rupture: without rupture Qualified Code(s): I71.2 - Thoracic aortic aneurysm, without rupture (9) DVT prophylaxis Current Visit: No Status: Acute Assessment and plan: heparin subcutaneous - Subjective Interval history: Patient has no complaints today denies any pain or discomfort. Basically unchanged from yesterday. Still awaiting approval for ECF. - Constitutional Vitals: Temp Pulse Resp BP Pulse Ox 97.5 F L 67 14 95/56 97 06/12/17 11:33 06/12/17 11:33 06/12/17 11:33 06/12/17 11:33 06/12/17 11:33 General appearance: Present: cooperative, A&O X 3, pleasant, obese, answers questions appropriately - Head Head exam: Present: atraumatic, normocephalic - Eye Eye exam: Present: PERRL, conjuntiva pink, sclera anicteric Pupils: Present: PERRL - Neck Neck exam general surgery: Present: supple, trachea midline. Absent: lymphadenopathy - Respiratory Respiratory exam: Present: CTAB. Absent: accessory muscle use, rales, rhonchi, wheezes - Cardiovascular Cardiovascular exam: Present: RRR, +S1, +S2. Absent: diastolic murmur, gallop, rubs, systolic murmur - GI/Abdominal GI/Abdominal exam: Present: normal bowel sounds, soft, no peritoneal signs. Absent: distended, tenderness - Extremities Exam Extremities exam: Present: warm, radial pulses palpable and symmetrical. Absent : calf tenderness, cyanotic, pedal edema - Neurological Exam Neurological exam: Present: CN II-XII intact, oriented X3, no focal deficits. Absent: pronater drift, facial droop, speech deficit - Skin Skin exam: Present: dry, intact Internal Medicine: Result - Labs CBC & Chem 7: 06/09/17 04:15 06/10/17 08:00 Consult Discharge Plan - Plan Referrals: Atilio Lang MD [Primary Care Provider] -
[2017-06-12] MEDS: Insulin DETEMIR 100 UNIT/ML X5UNITS SQ SCH ×2 (17:09→20:34)
[2017-06-12] MEDS: rOPINIRole 0.25 MG TABLET PO SCH (20:34)
[2017-06-13] MEDS: *HR* Heparin 5,000 UNIT/ML VIAL SQ SCH ×2 (06:05→17:51)
[2017-06-13 08:36] LABS: BUN/Creatinine Ratio 20 (6-26); Blood Urea Nitrogen 14 mg/dL (8-23); Calcium 8.9 mg/dL (8.6-10.3); Carbon Dioxide 25 mEq/L (23-29); Chloride 104 mEq/L (98-107); Glucose 148 mg/dL (70-105); Osmolality,Calculated 283 (280-300); Potassium 3.7 mEq/L (3.5-5.1); Sodium 135 mEq/L (136-145); eGFR For Non-African Americans > 60 (> 60)
[2017-06-13] MEDS: Insulin LISPRO 300 UNITS/3 ML VIAL SQ SCH ×3 (08:52→17:51)
[2017-06-13] MEDS: Multivit/Ca/Min/Fe/FA 1 TAB TABLET PO SCH (08:57)
[2017-06-13] MEDS: Aspirin Enteric Coated 81 MG Tablet PO SCH (08:58)
[2017-06-13] MEDS: Loratadine 10 MG TABLET PO SCH (08:58)
--- NOTE | 2017-06-13 10:58 | Internal Med Progress Note ---
Date of Encounter: 06/13/17 Time of Encounter: 10:58 - Assessment and plan (1) UTI (urinary tract infection) Current Visit: Yes Status: Acute Assessment and plan: Urinalysis indicative of UTI urine culture was positive for yeast. According to records urology recommending not to treat the yeast advising him to change catheter if it has been in place for over one month worth of bladder scan reveals greater than thousand mL's. Presently the catheter has been draining urine without difficulty. Bladder scan reveals less than 5 mL and bladder Patient denies any urinary symptoms no leukocytosis no fever-catheter changed on Wednesday Qualifiers: Urinary tract infection type: site unspecified Hematuria presence: without hematuria Qualified Code(s): N39.0 - Urinary tract infection, site not specified (2) Incomplete bladder emptying Current Visit: Yes Status: Acute Assessment and plan: Urology Advises to keep indwelling catheter and at this time-verify changed every 4 weeks-bladder scan reveals less than 5 mL and bladder Urology recommends once patient has clinically improved attempting voiding trials or intermittent catheterization-he can follow-up with urology as outpatient (3) Gait abnormality Current Visit: Yes Status: Acute Assessment and plan: 1patient continues to feel weak and has difficulty ambulating he has been evaluated for PT and OT for home health however family feels that they cannot take care of him, because they are unable to lift him.Discuss with nutrition services manager who will attempt to place in ECF rehab-still waiting for approval from insurance for ECF placement Fall precautions (4) Generalized weakness Current Visit: Yes Status: Acute Assessment and plan: Encourage patient up to chair as well as PTOT evaluation possible placement to ECF for rehabilitation nutrition services manager evaluation (5) Anemia Current Visit: Yes Status: Chronic Assessment and plan: Upon review appears patient's baseline is 12.7-it appears to be around baseline Awaiting pending occult stool Consult GI as needed Qualifiers: Anemia type: unspecified type Qualified Code(s): D64.9 - Anemia, unspecified (6) CHF exacerbation Current Visit: Yes Status: Chronic Assessment and plan: 1 echo 06/06/2017 with EF 55-60% normal RV size. Functional lobe normal. Mild left ventricular diastolic dysfunction. Mild aortic regurgitation. Mildly calcified and thickened aortic valve leaflets. Trileaflet aortic valve with possible partial fusion of the in cc/RCC. No aortic stenosis. Mild pulmonic regurgitation. No pulmonary hypertension. Dilated aortic root and ascending aorta measuring 4.7 Monitor intake and output daily weights We will place on oral Lasix 20 daily Monitor electrolytes and renal function Continue with beta yanique and ARB-presently blood pressures been stable Qualifiers: Heart failure type: unspecified Qualified Code(s): I50.9 - Heart failure, unspecified (7) Diabetes mellitus Current Visit: No Status: Chronic Assessment and plan: Hemoglobin A1c is 11.7- Accu-Cheks before meals at bedtime with medium sliding scale coverage-as well as basal insulin - BS around 200-300 we will increase basal insulin to 35units at night Qualifiers: Diabetes mellitus type: type 2 Diabetes mellitus complication status: with unspecified complications Diabetes mellitus group home insulin use: with exterminator termite use Qualified Code(s): E11.8 - Type 2 diabetes mellitus with unspecified complications; Z79.4 - watermaster (current) use of insulin (8) Aortic aneurysm Current Visit: Yes Status: Acute Assessment and plan: 1 This appears to be stable 4.9cm previous today 5.0 we will monitor Have patient follow up with vascular as out patient. Qualifiers: Aortic location: thoracic aorta Presence of rupture: without rupture Qualified Code(s): I71.2 - Thoracic aortic aneurysm, without rupture (9) DVT prophylaxis Current Visit: No Status: Acute Assessment and plan: heparin subcutaneous - Time Spent With Patient less than 15 minutes - Subjective Interval history: Patient has no complaints today denies any pain or discomfort. Basically unchanged from yesterday. Still awaiting approval for ECF. - Constitutional Vitals: Temp Pulse Resp BP Pulse Ox 98.0 F 54 16 146/75 96 06/13/17 07:14 06/13/17 07:14 06/13/17 07:14 06/13/17 07:14 06/13/17 08:39 General appearance: Present: cooperative, A&O X 3, pleasant, obese, answers questions appropriately - Head Head exam: Present: atraumatic, normocephalic - Eye Eye exam: Present: PERRL, conjuntiva pink, sclera anicteric Pupils: Present: PERRL - Neck Neck exam general surgery: Present: supple, trachea midline. Absent: lymphadenopathy - Respiratory Respiratory exam: Present: CTAB. Absent: accessory muscle use, rales, rhonchi, wheezes - Cardiovascular Cardiovascular exam: Present: RRR, +S1, +S2. Absent: diastolic murmur, gallop, rubs, systolic murmur - GI/Abdominal GI/Abdominal exam: Present: normal bowel sounds, soft, no peritoneal signs. Absent: distended, tenderness - Extremities Exam Extremities exam: Present: warm, radial pulses palpable and symmetrical. Absent : calf tenderness, cyanotic, pedal edema - Neurological Exam Neurological exam: Present: CN II-XII intact, oriented X3, no focal deficits. Absent: pronater drift, facial droop, speech deficit - Skin Skin exam: Present: dry, intact Internal Medicine: Result - Labs CBC & Chem 7: 06/09/17 04:15 06/13/17 06:04 Labs: BMP 06/13/17 06:04 Sodium 135 L Potassium 3.7 Chloride 104 Carbon Dioxide 25 BUN 14 Creatinine 0.70 Glucose 148 H Calcium 8.9 Consult Discharge Plan - Plan Referrals: Atilio Lang MD [Primary Care Provider] -
[2017-06-13] MEDS: rOPINIRole 0.25 MG TABLET PO SCH (20:35)
[2017-06-13] MEDS: Insulin DETEMIR 100 UNIT/ML X5UNITS SQ SCH (20:35)
[2017-06-14] MEDS: *HR* Heparin 5,000 UNIT/ML VIAL SQ SCH (06:01)
[2017-06-14] MEDS: Aspirin Enteric Coated 81 MG Tablet PO SCH (10:22)
[2017-06-14] MEDS: Multivit/Ca/Min/Fe/FA 1 TAB TABLET PO SCH (10:22)
[2017-06-14] MEDS: Loratadine 10 MG TABLET PO SCH (10:22)
[2017-06-14] MEDS: Insulin LISPRO 300 UNITS/3 ML VIAL SQ SCH ×3 (10:23→17:30)
[2017-06-14 12:06] LABS: Hematocrit 35.4 % (37.5-50.1); Mean Corpuscular HGB Conc 33.9 g/dL (31.6-35.5); Mean Corpuscular Hemoglobin 29.1 pg (28.0-33.3); Mean Corpuscular Volume 85.9 fL (83.0-100.0); Mean Platelet Volume 11.5 fL (9.4-12.4); Platelet Count 159 K/mcL (140-400); Red Blood Count 4.12 M/mcL (4.19-5.50); Red Cell Distribution Width 13.3 % (11.5-14.5)
--- NOTE | 2017-06-14 15:47 | Internal Med Progress Note ---
Date of Encounter: 06/14/17 Time of Encounter: 15:43 - Assessment and plan (1) Incomplete bladder emptying Current Visit: Yes Status: Acute Assessment and plan: ABD CT showed bladder distention despite the catheter in place. I am not sure this is clinically significant as he has had excellent urine output and a bladder scan was unconcerning. Evalauted by Urology who suspected catheter was kinked preventing drainage at the time of the CT scan as he had adequate urine output and bladder scan with an concerning. Neurology noted best option would be for intermittent catheterization however patient unable to perform at this time. Will need to keep Monson catheter in place, replace every 4 weeks. Follow -up with urology outpatient for a voiding trial or intermittent catheterization teaching. (2) UTI (urinary tract infection) Current Visit: Yes Status: Acute Assessment and plan: Urinalysis indicative of UTI. Urine cx with yeast. Urology recommending not to treat the yeast and advised to change catheter every 4 weeks. Catheter last changed 06/10/17. Qualifiers: Urinary tract infection type: site unspecified Hematuria presence: without hematuria Qualified Code(s): N39.0 - Urinary tract infection, site not specified (3) Anemia Current Visit: Yes Status: Chronic Assessment and plan: Hgb 14 on admission and dropped to 12. Occult stool positive. Stop ASA, heparin. Nothing by mouth at midnight. GI consulted Qualifiers: Anemia type: unspecified type Qualified Code(s): D64.9 - Anemia, unspecified (4) Aortic aneurysm Current Visit: Yes Status: Acute Assessment and plan: stable 4.9cm previous and now 5.0. Continue with annual surveillance. Follow- up with vascular outpatient. Qualifiers: Aortic location: thoracic aorta Presence of rupture: without rupture Qualified Code(s): I71.2 - Thoracic aortic aneurysm, without rupture (5) CHF exacerbation Current Visit: Yes Status: Chronic Assessment and plan: 1 echo 06/06/2017 with EF 55-60% normal RV size, mild left ventricular diastolic dysfunction. Mild aortic regurgitation. Mildly calcified and thickened aortic valve leaflets. Trileaflet aortic valve with possible partial fusion of the in cc/RCC. No aortic stenosis. Mild pulmonic regurgitation. No pulmonary hypertension. Dilated aortic root and ascending aorta measuring 4.7. Appears euvolemic. Continue home Lasix., Daily weights I's and O's and low- sodium diet. Qualifiers: Heart failure type: unspecified Qualified Code(s): I50.9 - Heart failure, unspecified (6) DVT prophylaxis Current Visit: No Status: Acute Assessment and plan: SCDs - Subjective Interval history: Seen and examined at bedside, patient is new to me. Information obtained from chart review and patient report. Overall says he feels well significantly improved from admission. Says he is waiting for discharged to ECF, otherwise has no complaints or concerns. No chest pain, no shortness of breath. No abdominal pain, nausea, diarrhea no dysuria. Hospitalization prolonged due to awaiting insurance authorization. - Constitutional Vitals: Temp Pulse Resp BP Pulse Ox 98.5 F 67 16 113/68 96 06/14/17 15:21 06/14/17 15:21 06/14/17 15:21 06/14/17 15:21 06/14/17 15:21 General appearance: Present: cooperative, A&O X 3, pleasant, obese, answers questions appropriately - Head Head exam: Present: atraumatic, normocephalic - Eye Eye exam: Present: PERRL, conjuntiva pink, sclera anicteric Pupils: Present: PERRL - Neck Neck exam general surgery: Present: supple, trachea midline. Absent: lymphadenopathy - Respiratory Respiratory exam: Present: CTAB. Absent: accessory muscle use, rales, rhonchi, wheezes - Cardiovascular Cardiovascular exam: Present: RRR, +S1, +S2. Absent: diastolic murmur, gallop, rubs, systolic murmur - GI/Abdominal GI/Abdominal exam: Present: normal bowel sounds, soft, no peritoneal signs. Absent: distended, tenderness - Additional comments: + monson - Extremities Exam Extremities exam: Present: warm, radial pulses palpable and symmetrical. Absent : calf tenderness, cyanotic, pedal edema - Neurological Exam Neurological exam: Present: CN II-XII intact, oriented X3, no focal deficits. Absent: pronater drift, facial droop, speech deficit - Skin Skin exam: Present: dry, intact Internal Medicine: Result - Labs CBC & Chem 7: 06/14/17 11:13 06/13/17 06:04 Labs: Short CBC 06/14/17 Range/Units 11:13 WBC 6.3 (4.3-11.1) K/mcL Hgb 12.0 L (12.9-16.9) g/dL Hct 35.4 L (37.5-50.1) % Plt Count 159 (140-400) K/mcL Consult Discharge Plan - Plan Referrals: Atilio Lang MD [Primary Care Provider] -
[2017-06-14] MEDS: rOPINIRole 0.25 MG TABLET PO SCH (21:26)
[2017-06-14] MEDS: Insulin DETEMIR 100 UNIT/ML X5UNITS SQ SCH (21:26)
[2017-06-15] MEDS: Insulin LISPRO 300 UNITS/3 ML VIAL SQ SCH ×2 (09:16→13:40)
[2017-06-15] MEDS: Multivit/Ca/Min/Fe/FA 1 TAB TABLET PO SCH (09:19)
[2017-06-15] MEDS: Loratadine 10 MG TABLET PO SCH (09:19)
[2017-06-15 11:08] LABS: Hematocrit 36.7 % (37.5-50.1); Hemoglobin 12.3 g/dL (12.9-16.9); Mean Corpuscular HGB Conc 33.5 g/dL (31.6-35.5); Mean Corpuscular Volume 86.6 fL (83.0-100.0); Platelet Count 158 K/mcL (140-400); Red Blood Count 4.24 M/mcL (4.19-5.50); Red Cell Distribution Width 13.3 % (11.5-14.5)
--- NOTE | 2017-06-15 14:05 | Internal Med Progress Note ---
Date of Encounter: 06/15/17 Time of Encounter: 14:03 - Assessment and plan (1) Incomplete bladder emptying Current Visit: Yes Status: Acute Assessment and plan: ABD CT showed bladder distention despite the catheter in place. I am not sure this is clinically significant as he has had excellent urine output and a bladder scan was unconcerning. Evalauted by Urology who suspected catheter was kinked preventing drainage at the time of the CT scan as he had adequate urine output and bladder scan with an concerning. Neurology noted best option would be for intermittent catheterization however patient unable to perform at this time. Will need to keep Monson catheter in place, replace every 4 weeks. Follow -up with urology outpatient for a voiding trial or intermittent catheterization teaching. (2) UTI (urinary tract infection) Current Visit: Yes Status: Acute Assessment and plan: Urinalysis indicative of UTI. Urine cx with yeast. Urology recommending not to treat the yeast and advised to change catheter every 4 weeks. Catheter last changed 06/10/17. Qualifiers: Urinary tract infection type: site unspecified Hematuria presence: without hematuria Qualified Code(s): N39.0 - Urinary tract infection, site not specified (3) Anemia Current Visit: Yes Status: Chronic Assessment and plan: Hgb 14 on admission and dropped to 12. Occult stool positive. Cont PPI. Stop ASA, heparin. Nothing by mouth at midnight. GI consulted Qualifiers: Anemia type: unspecified type Qualified Code(s): D64.9 - Anemia, unspecified (4) Aortic aneurysm Current Visit: Yes Status: Acute Assessment and plan: stable 4.[address] and now 5.0. Continue with annual surveillance. Follow-up with vascular outpatient. Qualifiers: Aortic location: thoracic aorta Presence of rupture: without rupture Qualified Code(s): I71.2 - Thoracic aortic aneurysm, without rupture (5) CHF exacerbation Current Visit: Yes Status: Chronic Assessment and plan: 1 echo 06/06/2017 with EF 55-60% normal RV size, mild left ventricular diastolic dysfunction. Mild aortic regurgitation. Mildly calcified and thickened aortic valve leaflets. Trileaflet aortic valve with possible partial fusion of the in cc/RCC. No aortic stenosis. Mild pulmonic regurgitation. No pulmonary hypertension. Dilated aortic root and ascending aorta measuring 4.7. Appears euvolemic. Continue home Lasix., Daily weights I's and O's and low- sodium diet. Qualifiers: Heart failure type: unspecified Qualified Code(s): I50.9 - Heart failure, unspecified (6) DVT prophylaxis Current Visit: No Status: Acute Assessment and plan: SCDs - Subjective Interval history: Seen and examined at bedside; says he had an uneventful night. He is NPO; awaiting GI consult. His only complaint at this time is being hungry and wanting to eat. He otherwise has no complaints, no CP or SOB. - Constitutional Vitals: Temp Pulse Resp BP Pulse Ox 97.6 F 63 16 135/82 93 06/15/17 12:03 06/15/17 12:03 06/15/17 12:03 06/15/17 12:03 06/15/17 12:03 General appearance: Present: cooperative, A&O X 3, pleasant, obese, answers questions appropriately - Head Head exam: Present: atraumatic, normocephalic - Eye Eye exam: Present: PERRL, conjuntiva pink, sclera anicteric Pupils: Present: PERRL - Neck Neck exam general surgery: Present: supple, trachea midline. Absent: lymphadenopathy - Respiratory Respiratory exam: Present: CTAB. Absent: accessory muscle use, rales, rhonchi, wheezes - Cardiovascular Cardiovascular exam: Present: RRR, +S1, +S2. Absent: diastolic murmur, gallop, rubs, systolic murmur - GI/Abdominal GI/Abdominal exam: Present: normal bowel sounds, soft, no peritoneal signs. Absent: distended, tenderness - Additional comments: + monson - Extremities Exam Extremities exam: Present: warm, radial pulses palpable and symmetrical. Absent : calf tenderness, cyanotic, pedal edema - Neurological Exam Neurological exam: Present: CN II-XII intact, oriented X3, no focal deficits. Absent: pronater drift, facial droop, speech deficit - Skin Skin exam: Present: dry, intact Internal Medicine: Result - Labs CBC & Chem 7: 06/15/17 10:04 06/13/17 06:04 Labs: Short CBC 06/15/17 Range/Units 10:04 WBC 7.1 (4.3-11.1) K/mcL Hgb 12.3 L (12.9-16.9) g/dL Hct 36.7 L (37.5-50.1) % Plt Count 158 (140-400) K/mcL Consult Discharge Plan - Plan Referrals: Atilio Lang MD [Primary Care Provider] -
--- NOTE | 2017-06-15 14:46 | Gastroenterology Consult Note ---
<BrizuelaDenis kramer Crescencio - Last Filed: 06/15/17 14:44> Date of Encounter: 06/15/17 Time of Encounter: 11:45 - Assessment and plan (1) Anemia Status: Chronic Assessment and plan: Hgb 14.9 on admission, now Hgb 12.3. Fecal occult blood test was positive on 06/10. No melena or hematochezia. Plan for EGD and colonoscopy as outpatient. Follow up in GI office in 2 weeks. Qualifiers: Anemia type: unspecified type Qualified Code(s): D64.9 - Anemia, unspecified (2) Fecal occult blood test positive Status: Acute - Time Spent With Patient Total time spent is greater than 50% in coordination of care (as documented) at patient's floor/unit and/or counseling patient: GI History of Present Illness - Data of Consult Patient: new to practice Consult date: 06/15/17 Requesting Physician: Tracey Xie CNP - Consult Narrative Reason for consult: Anemia History of present illness: Mr. Khanna is a 71 year old male with PMHx of CHF, DM, HLD, HTN who presented to the ED with weakness and inability to ambulate. He denied fever, chills, chest pain, shortness of breath, abdominal pain, nausea, vomiting, diarrhea, or constipation. He was found to have UTI and was started on antibiotics. 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 We have been consulted to evalute his anemia. On admission, Hgb 14.9 and this AM Hgb 12. Fecal occult blood test was positive on 06/10. Procedures: None NSAIDs: ASA Anticoagulation: None Past Med Surg Social Fam HX - Past Medical History Medical history: CHF, diabetes, hyperlipidemia, hypertension Psychiatric history: depression - Social History Smoking Status: Former smoker Smokeless Tobacco Status: No Alcohol use: none Drug use: none - Family History Father Living Status: Hx Family Cancer: Yes Hx Family Endocrine Disorder: Yes Mother Adopted: [place]: RINKU ALEJANDRA Family Member Ethnicity: Non- Living Status: Age at : 87 Cause of : CANCER Hx Family Cardiac Disorders: No Hx Family Respiratory Disorders: No Hx Family Cancer: Yes Hx Family GI Disorders: No Hx Family Genitourinary Disorders: No Hx Family Endocrine Disorder: No Hx Family Musculoskeletal Disorders: No Hx Family Neuromuscular Disorders: No Hx Family Neurologic Disorders: No Hx Family HEENT Disorders: No Hx Family Autoimmune Disorders: No Hx Family Reproductive Disorders: No Hx Family Psychosocial Disorders: No Hx Family Medical Disorders: No - Gastrointestinal Gastrointestinal: Present: as per HPI - Constitutional Constitutional: as per HPI - EENT Eyes: as per HPI Ears: Present: as per HPI Nose, mouth and throat: Present: as per HPI - Cardiovascular Cardiovascular ROS: Present: as per HPI - Respiratory Respiratory IM: Present: as per HPI - Genitourinary Genitourinary: Absent: change in color, Urinary frequency - Neurological ROS Neurological GI: Present: as per HPI - Hematologic/Lymphatic Hematologic/Lymphatic pediatric: Present: as per HPI - Musculoskeletal Musculoskeletal ROS GI: Present: as per HPI - Integumentary Integumentary GI: Present: as per HPI - Psychiatric ROS Psychiatric GI: Present: as per HPI - Endocrine Endocrine IM: Present: as per HPI - Constitutional Vitals: Temp Pulse Resp BP Pulse Ox 97.6 F 63 16 135/82 93 06/15/17 12:03 06/15/17 12:03 06/15/17 12:03 06/15/17 12:03 06/15/17 12:03 General appearance: Present: cooperative, A&O X 3, no acute distress, answers questions appropriately - Head Head exam: Present: atraumatic, normocephalic - Eye Eye exam: Present: normal appearance, sclera anicteric - ENT ENT exam: Present: mucous membranes dry - Neck Neck exam general surgery: Present: normal inspection, trachea midline - Respiratory Respiratory exam: Present: CTAB. Absent: rales, rhonchi - Cardiovascular Cardiovascular exam: Present: RRR, +S1, +S2 - GI/Abdominal GI/Abdominal exam: Present: soft, no peritoneal signs. Absent: distended, firm , guarding, tenderness - Rectal Rectal exam: Present: deferred - Extremities Exam Extremities exam: Present: warm - Neurological Exam Neurological exam: Present: no focal deficits - Psychiatric Psychiatric exam: Present: normal affect, normal mood - Skin Skin exam: Present: dry, intact, normal color, warm - Other Additional findings: Chang present Results - Labs CBC & Chem 7: 06/15/17 10:04 06/13/17 06:04 Labs: Last Result Calcium 8.9 mg/dL (8.6-10.3) 06/13/17 06:04 Troponin I < 0.03 ng/mL (< 0.04) 06/04/17 18:07 Stool Occult Blood Positive (Negative) A 06/10/17 10:00 Entire Visit Hgb 12.3 g/dL (12.9-16.9) L 06/15/17 10:04 Hct 36.7 % (37.5-50.1) L 06/15/17 10:04 Total Bilirubin 0.6 mg/dL (0.3-1.0) 06/04/17 18:07 AST 8 Units/L (13-39) L 06/04/17 18:07 ALT 8 Units/L (7-52) 06/04/17 18:07 Consult Discharge Plan - Plan Referrals: Atilio Lang MD [Primary Care Provider] - Serjio Bateman MD [Partnered Physician] - (F/U 1 mo ) Edward Alcazar MD [Partnered Physician] - (F/U in 2 wks for upper and lower scopes Hold ASA until then) <Cyrus Iglesias - Last Filed: 06/20/17 15:07> Date of Encounter: 06/15/17 - Time Spent With Patient Total time spent is greater than 50% in coordination of care (as documented) at patient's floor/unit and/or counseling patient: GI History of Present Illness - Data of Consult Requesting Physician: Tracey Xie CNP - Consult Narrative History of present illness: Mr. Khanna is a 71 year old male - Constitutional Vitals: Temp Pulse Resp BP Pulse Ox 97.9 F 72 16 111/75 93 06/15/17 16:05 06/15/17 16:05 06/15/17 16:05 06/15/17 16:05 06/15/17 16:05 Results - Labs CBC & Chem 7: 06/15/17 10:04 06/13/17 06:04 Labs: Last Result Calcium 8.9 mg/dL (8.6-10.3) 06/13/17 06:04 Troponin I < 0.03 ng/mL (< 0.04) 06/04/17 18:07 Stool Occult Blood Positive (Negative) A 06/10/17 10:00 Entire Visit Hgb 12.3 g/dL (12.9-16.9) L 06/15/17 10:04 Hct 36.7 % (37.5-50.1) L 06/15/17 10:04 Total Bilirubin 0.6 mg/dL (0.3-1.0) 06/04/17 18:07 AST 8 Units/L (13-39) L 06/04/17 18:07 ALT 8 Units/L (7-52) 06/04/17 18:07 - Attending Attestation Mr. Khanna is a pleasant 71-year-old male who presents with a drop in hemoglobin from 14-12 without evidence of any gross gastrointestinal bleeding. We will plan upper and lower endoscopy on him as an outpatient as he is not actively as he is not actively bleeding he will follow up with our office in about 2 weeks and then further recommendations remade thank you very much for this consultation I have personally performed a face to face evaluation on this patient. I have reviewed and agree with the care plan. History and Exam by me shows:
[2017-06-15 16:07] VITALS: BP 111/75
--- NOTE | 2017-06-15 16:33 | Discharge Summary ---
Date of Encounter: 06/15/17 Time of Encounter: 16:31 - Discharge Diagnosis (1) Incomplete bladder emptying Priority: Primary Status: Acute Comments: ABD CT showed bladder distention despite the catheter in place. I am not sure this is clinically significant as he has had excellent urine output and a bladder scan was unconcerning. Evalauted by Urology who suspected catheter was kinked preventing drainage at the time of the CT scan as he had adequate urine output and bladder scan with an concerning. Neurology noted best option would be for intermittent catheterization however patient unable to perform at this time. Will need to keep Chang catheter in place, replace every 4 weeks. Follow -up with urology outpatient for a voiding trial or intermittent catheterization teaching. (2) UTI (urinary tract infection) Priority: Primary Status: Acute Comments: Urinalysis indicative of UTI. Urine cx with yeast. Urology recommending not to treat the yeast and advised to change catheter every 4 weeks. Catheter last changed 06/10/17. Qualifiers: Urinary tract infection type: site unspecified Hematuria presence: without hematuria Qualified Code(s): N39.0 - Urinary tract infection, site not specified (3) Anemia Priority: Primary Status: Chronic Comments: Hgb 14 on admission and dropped to 12. Occult stool positive. No active bleeding. Evaluated by GI who recommended outpatient colonoscopy/EGD. Recommend holding ASA until evaluated by GI. Qualifiers: Anemia type: unspecified type Qualified Code(s): D64.9 - Anemia, unspecified (4) Aortic aneurysm Priority: Primary Status: Acute Comments: stable 4.[address] and now 5.0. Continue with annual surveillance. Follow-up with vascular outpatient. Qualifiers: Aortic location: thoracic aorta Presence of rupture: without rupture Qualified Code(s): I71.2 - Thoracic aortic aneurysm, without rupture (5) CHF exacerbation Priority: Primary Status: Chronic Comments: echo 06/06/2017 with EF 55-60% normal RV size, mild left ventricular diastolic dysfunction. Mild aortic regurgitation. Mildly calcified and thickened aortic valve leaflets. Trileaflet aortic valve with possible partial fusion of the in cc/RCC. No aortic stenosis. Mild pulmonic regurgitation. No pulmonary hypertension. Dilated aortic root and ascending aorta measuring 4.7. Appears euvolemic. Continue home Lasix. Qualifiers: Heart failure type: unspecified Qualified Code(s): I50.9 - Heart failure, unspecified Hospital course: Please see assessment and plan for hospital course. - Time Spent with Patient Total time spent providing and/or coordinating discharge services: - Discharge Medications Home Medications: Atorvastatin [Lipitor] 40 mg PO HS 11/27/15 [History] Carvedilol [Coreg] 6.25 mg PO BIDWM 11/27/15 [History] Furosemide [Lasix] 40 mg PO DAILY 11/27/15 [History] Glimepiride [Amaryl] 4 mg PO QAM 11/27/15 [History] Insulin Glargine [Lantus] 30 unit SQ HS 11/27/15 [History] Loratadine [Claritin] 10 mg PO DAILY 11/27/15 [History] Metformin HCl [Glucophage] 1,000 mg PO BID 11/27/15 [History] Potassium Chloride [K-Tab ER] 10 meq PO DAILY 11/27/15 [History] Ropinirole HCl [Requip] 0.25 mg PO HS 11/27/15 [History] Esomeprazole Magnesium [Nexium] 40 mg PO DAILY 02/25/16 [History] Amitriptyline [Elavil] 25 mg PO QPM #30 tablet 02/27/16 [Rx] Citalopram [CeleXA] 20 mg PO DAILY 04/21/16 [History] Multivitamin [One Daily Essential] 1 tab PO DAILY 04/21/16 [History] HYDROcodone/Acet 7.5/325 mg [[place] 7.5-325 mg] 1 tab PO Q6H PRN 09/09/16 [ History] Losartan Potassium [Cozaar] 100 mg PO DAILY 09/09/16 [History] Allergies/Adverse Reactions: 3 Allergy/AdvReac Type Severity Reaction Status Date / Time Penicillins [PCN] Allergy Hives Verified 06/04/17 18:06 shellfish derived Allergy Hives Verified 06/04/17 18:06 Date of admission: 06/04/17 21:50 Primary care physician: Aidan Gomez Consults: 06/06/17 10:15 Consult to Substation Mechanic [CONS] Routine Reason for SW Consult: Assess patients home needs. 06/06/17 14:11 Consult to Urology [CONS] Routine Consulting Provider: Urology Symone Reason for Consult: indwelling catheter with bladder stimulator, yeast, retention on CT scan Time Notified: 14:21 Call Completed: Yes 06/14/17 15:47 Consult to Gastroenterology [CONS] Routine Consulting Provider: Gastroenterology Symone Reason for Consult: anemia, occult stool + Call Completed: Yes Discharging clinician: Tracey Xie Anticipated date of discharge: 06/15/17 - Constitutional Vitals: Temp Pulse Resp BP Pulse Ox 97.9 F 72 16 111/75 93 06/15/17 16:05 06/15/17 16:05 06/15/17 16:05 06/15/17 16:05 06/15/17 16:05 General appearance: Present: cooperative, A&O X 3, pleasant, obese, answers questions appropriately - Head Head exam: Present: atraumatic, normocephalic - Eye Eye exam: Present: PERRL, conjuntiva pink, sclera anicteric Pupils: Present: PERRL - Neck Neck exam general surgery: Present: supple, trachea midline. Absent: lymphadenopathy - Respiratory Respiratory exam: Present: CTAB. Absent: accessory muscle use, rales, rhonchi, wheezes - Cardiovascular Cardiovascular exam: Present: RRR, +S1, +S2. Absent: diastolic murmur, gallop, rubs, systolic murmur - GI/Abdominal GI/Abdominal exam: Present: normal bowel sounds, soft, no peritoneal signs. Absent: distended, tenderness - Extremities Exam Extremities exam: Present: warm, radial pulses palpable and symmetrical. Absent : calf tenderness, cyanotic, pedal edema - Neurological Exam Neurological exam: Present: CN II-XII intact, oriented X3, no focal deficits. Absent: pronater drift, facial droop, speech deficit - Skin Skin exam: Present: dry, intact - Patient Status Disposition: Transfer SNF Condition: Good Functional capacity at discharge: uses cane/walker Overall status at discharge: patient is progressing back to baseline - Discharge Instructions Follow Up With: Atilio Lang MD [Primary Care Provider] - - Diet and Activity Activity: as per physical therapy Diet: diabetic diet, low fat, low cholesterol
--- NOTE | 2017-06-15 17:22 | Physician Discharge Referral ---
ExtendedCare Referral Info Transfer To: SNF Provider in Charge: Tracey Xie CNP Provider in Charge after Transfer: PCP Institutional Level of Care: Skilled - Diagnosis (1) Incomplete bladder emptying Status: Acute (2) UTI (urinary tract infection) Status: Acute (3) Anemia Status: Chronic (4) Aortic aneurysm Status: Acute (5) CHF exacerbation Status: Chronic - Transfer Medications Home Medications: Atorvastatin [Lipitor] 40 mg PO HS 11/27/15 [History] Carvedilol [Coreg] 6.25 mg PO BIDWM 11/27/15 [History] Furosemide [Lasix] 40 mg PO DAILY 11/27/15 [History] Glimepiride [Amaryl] 4 mg PO QAM 11/27/15 [History] Insulin Glargine [Lantus] 30 unit SQ HS 11/27/15 [History] Loratadine [Claritin] 10 mg PO DAILY 11/27/15 [History] Metformin HCl [Glucophage] 1,000 mg PO BID 11/27/15 [History] Potassium Chloride [K-Tab ER] 10 meq PO DAILY 11/27/15 [History] Ropinirole HCl [Requip] 0.25 mg PO HS 11/27/15 [History] Esomeprazole Magnesium [Nexium] 40 mg PO DAILY 02/25/16 [History] Amitriptyline [Elavil] 25 mg PO QPM #30 tablet 02/27/16 [Rx] Citalopram [CeleXA] 20 mg PO DAILY 04/21/16 [History] Multivitamin [One Daily Essential] 1 tab PO DAILY 04/21/16 [History] HYDROcodone/Acet 7.5/325 mg [[place] 7.5-325 mg] 1 tab PO Q6H PRN 09/09/16 [ History] Losartan Potassium [Cozaar] 100 mg PO DAILY 09/09/16 [History] Allergies/Adverse Reactions: 3 Allergy/AdvReac Type Severity Reaction Status Date / Time Penicillins [PCN] Allergy Hives Verified 06/04/17 18:06 shellfish derived Allergy Hives Verified 06/04/17 18:06 - Respiratory Orders None Smoking Cessation: Smoking cessation has been advised. For more information, call the [place] Tobacco Quit Line at 7-871-SCMX-NOW. - Advance Directives Code Status: Full Code - Mobility Orders Ambulate - Rehabiliation Orders Rehab Orders: Evaluation for Physical Therapy, Evaluation for Occupational Therapy - Treatments List/Other: Leave Chang catheter in place until follow-up with urology. Chang catheter needs to be changed every 4 weeks. Last change 06/10/2017 - Diet Orders No Concentrated Sweets, Cardiac CERTIFICATION: I certify that the transfer of the above named patient to an Extended Care Facility is necessary for the continuing treatment of the diagnosis listed. The above information is true and accurate reflection of patient's current condition. Confidential - Redisclosure prohibited without a patient's written consent.
== END 2017-06-15 18:19 | DRG 292 ==
LOC: 3BNU 17:44 → EMEROO 17:44 → 3BNU 21:07 → 1NENUPED 06-08 23:20 → 3ANU 06-09 14:25
PROVIDERS: ADMIT Pediatrics; ATTEND Registered Nurse

== ENCOUNTER 2017-10-04 20:51 | Observation (INO) ==
--- NOTE | 2017-10-04 21:22 | Emergency Department Note ---
Disposition Clinical Impression: Chest pain Qualifiers: Chest pain type: unspecified Qualified Code(s): R07.9 - Chest pain, unspecified Disposition: Admitted As Inpatient Condition: Fair Referrals: Atilio Lang MD [Non-Partnered Physician] - Time of Disposition: 22:11 Chest Pain HPI - General Chief Complaint: ED Chest Pain Stated Complaint: chest pain Time Seen by Provider: 10/04/17 20:55 Source: patient, family, EMS Mode of arrival: EMS Limitations: no limitations Vital Signs Reviewed: Yes Nursing Notes Reviewed: Yes - History of Present Illness HPI Narrative: 71yo male past medical history of hypertension, diastolic CHF, diabetes, CVA presented to [facility] complaining of chest pain that began an hour ago while at rest. The pain started after he got done eating at [employer]. He stated that it is retro sternal with no radiation and felt like an elephant was sitting on his chest. EMS gave him 4, 81 mg aspirin and nitroglycerin which helped to improve the pain. He had associated diaphoresis, nausea, vomiting. Denies shortness of breath, fever, chills, abdominal pain. He has never had pain like this before. He has had a stress test and left heart cath that did not require stents and his red hat engineer Dr. Villanueva is located in [place]. Severity scale (1-10): 8 - Related Data Home Medications Medication Instructions Recorded Confirmed Atorvastatin [Lipitor] 40 mg PO HS 11/27/15 06/04/17 Carvedilol [Coreg] 6.25 mg PO BIDWM 11/27/15 06/04/17 Furosemide [Lasix] 40 mg PO DAILY 11/27/15 06/04/17 Glimepiride [Amaryl] 4 mg PO QAM 11/27/15 06/04/17 Insulin Glargine [Lantus] 30 unit SQ HS 11/27/15 06/04/17 Loratadine [Claritin] 10 mg PO DAILY 11/27/15 06/04/17 Metformin HCl [Glucophage] 1,000 mg PO BID 11/27/15 06/04/17 Potassium Chloride [K-Tab ER] 10 meq PO DAILY 11/27/15 06/04/17 Ropinirole HCl [Requip] 0.25 mg PO HS 11/27/15 06/04/17 Esomeprazole Magnesium [Nexium] 40 mg PO DAILY 02/25/16 06/04/17 Citalopram [CeleXA] 20 mg PO DAILY 04/21/16 06/04/17 Multivitamin [One Daily Essential] 1 tab PO DAILY 04/21/16 06/04/17 HYDROcodone/Acet 7.5/325 mg [[place] 1 tab PO Q6H PRN 09/09/16 06/04/17 7.5-325 mg] Losartan Potassium [Cozaar] 100 mg PO DAILY 09/09/16 06/04/17 Previous Rx's Medication Instructions Recorded Amitriptyline [Elavil] 25 mg PO QPM #30 tablet 02/27/16 Allergies Allergy/AdvReac Type Severity Reaction Status Date / Time Penicillins [PCN] Allergy Hives Verified 06/04/17 18:06 shellfish derived Allergy Hives Verified 06/04/17 18:06 All systems ED: reviewed and negative except as stated. Review of Systems: As Per HPI Constitutional: Denies: fever, chills Cardiovascular: Reports: chest pain. Denies: palpitations, syncope Respiratory: Denies: cough, dyspnea, wheezes Gastrointestinal: Reports: nausea, vomiting. Denies: abdominal pain Musculoskeletal: Denies: back pain Integumentary: Denies: rash Neurological: Denies: headache Psychiatric: Denies: anxiety Hematological/Lymphatic: Denies: easy bleeding Chest Pain PMH - Past Medical History Medical history: Reports: CHF, CVA, diabetes, hyperlipidemia, hypertension Psychiatric history: Reports: depression - Social History Smoking Status: Former smoker Alcohol use: Reports: none Drug use: Reports: none Physical Exam - General Limitations: no limitations General appearance: alert, in no apparent distress - Head Head exam: atraumatic, normocephalic - Eye Eye exam: Present: normal appearance - Chest Chest inspection: Present: normal inspection. Absent: tenderness - Respiratory Respiratory exam: Present: normal lung sounds bilaterally. Absent: wheezes - Cardiovascular Cardiovascular exam: Present: regular rate, normal rhythm. Absent: systolic murmur - Abdominal Exam Abdominal exam: Present: soft, Non-Tender, normal bowel sounds - Extremities Exam Extremities exam: Present: normal inspection. Absent: tenderness - Back Exam Back exam: Present: normal inspection - Neurological Exam Neurological exam: Present: alert, oriented X3 - Psychiatric Psychiatric exam: Present: normal affect, normal mood - Skin Skin exam: Present: dry, intact Course Course Narrative: 71yo male past medical history of hypertension, hyperlipidemia, diabetes, CVA presented to [facility] complaining of chest pain that began an hour ago while at rest after he got done eating at [employer]. He stated that it is retro sternal with no radiation and felt like an elephant was sitting on his chest. EMS gave him 4, 81 mg aspirin and nitroglycerin which helped to improve the pain. He had associated diaphoresis, nausea, vomiting. Denies shortness of breath, fever, chills, abdominal pain. He has never had pain like this before. He has had a stress test and left heart cath that did not require stents and his red hat engineer Dr. Villanueva is located in [place]. Concern for myocardial infarction. Differential includes myocardial infarction , unstable angina, Gerd, pneumonia, aortic dissection. Will order a CBC, BMP, troponin, PT/INR, EKG, chest x-ray. - Reevaluation(s) Reevaluation #1: He reported improvement of chest pain. Time: 21:40 Vital Signs Temperature 98.9 F 10/04/17 21:00 Pulse Rate 100 10/04/17 21:00 Respiratory Rate 18 10/04/17 21:00 Blood Pressure 118/77 10/04/17 21:00 O2 Sat by Pulse Oximetry 95 10/04/17 21:00 Temperature 98.9 F 10/04/17 21:00 Pulse Rate 100 10/04/17 21:00 Respiratory Rate 18 10/04/17 21:00 Blood Pressure 118/77 10/04/17 21:00 O2 Sat by Pulse Oximetry 95 10/04/17 21:00 Oxygen Delivery Oxygen Delivery Nasal Cannula Chest Pain - [facility] Narrative Medical decision making narrative: 71yo male past medical history of hypertension, hyperlipidemia, diabetes, CVA presented to [facility] complaining of chest pain that began an hour ago while at rest after he got done eating at [employer]. He stated that it is retro sternal with no radiation and felt like an elephant was sitting on his chest. EMS gave him 4, 81 mg aspirin and nitroglycerin which helped to improve the pain. He had associated diaphoresis, nausea, vomiting. Denies shortness of breath, fever, chills, abdominal pain. He has never had pain like this before. He has had a stress test and left heart cath that did not require stents and his red hat engineer Dr. Villanueva is located in [place]. EKG demonstrated sinus tach with right bundle branch block similar to previous EKG with no ST or T wave changes. CBC, BMP, BMP, troponin, chest x-ray were all unremarkable. Will admit the patient for chest pain rule out in the patient is agreeable, he has a heart score of 6. The hospitalist accepted admission. - Differential Diagnosis Likely: pneumothorax, unstable angina pectoris, st elevation myocardial infraction - Medical Records Medical records reviewed: Yes I reviewed the patient's medical records. - Lab Data Lab results reviewed: Yes I reviewed the patient's lab results. - Radiology Data Radiology results reviewed: Yes I reviewed the patient's radiology results. Chest X-Ray 10/04/17 20:59 IMPRESSION: Cardiomegaly with no other significant pulmonary findings. Stable appearance from recent prior study. D/ / Gary Valenzuela MD / Gary Valenzuela MD Interpreting Provider: Gary Valenzuela MD - EKG Data EKG attestation: Yes I reviewed and interpreted this EKG. EKG results narrative: EKG HR 104, sinus attack, left axis deviation, right bundle branch block, no ST or T wave changes. EKG similar to prior previous. GA 176, QRS 157, QT/QTC 381/441 Heart Score - Score History: Highly Suspicious EKG: Normal Age: Greater than 65 Risk Factors: Equal/Greater than 3 risk factor or history of atherosclerotic disease Troponin: Less than normal limit HEART Score Total: 6 Critical Care Time Critical Care Time: No
[2017-10-04 21:38] LABS: Basophils % 0.5 %; Eosinophils # 0.2 K/mcL (0.0-0.6); Eosinophils % 1.9 %; Hematocrit 40.2 % (37.5-50.1); Hemoglobin 14.2 g/dL (12.9-16.9); Immature Granulocytes % 0.5 % (0-4); Lymphocytes # 2.1 K/mcL (0.6-4.6); Lymphocytes % 25.9 %; Mean Corpuscular HGB Conc 35.3 g/dL (31.6-35.5); Mean Corpuscular Hemoglobin 29.9 pg (28.0-33.3); Mean Corpuscular Volume 84.6 fL (83.0-100.0); Mean Platelet Volume 11.1 fL (9.4-12.4); Monocytes # 0.5 K/mcL (0.0-1.3); Monocytes % 6.3 %; Neutrophils # 5.4 K/mcL (1.6-8.9); Platelet Count 231 K/mcL (140-400); Red Blood Count 4.75 M/mcL (4.19-5.50); Red Cell Distribution Width 12.7 % (11.5-14.5); Segmented Neutrophils % 64.9 %
--- NOTE | 2017-10-04 21:41 | Emergency Department Note ---
Disposition Clinical Impression: Unstable angina Disposition: Still a Patient Condition: Fair Referrals: Atilio Lang MD [Non-Partnered Physician] - Forms: ED Satisfaction Letter General Adult HPI - General Chief complaint: ED Chest Pain Stated complaint: chest pain Time Seen by Provider: 10/04/17 20:55 Source: patient, family, EMS Mode of arrival: EMS Limitations: no limitations - History of Present Illness Pain Scale: 8 - Related Data Home Medications Medication Instructions Recorded Confirmed Atorvastatin [Lipitor] 40 mg PO HS 11/27/15 06/04/17 Carvedilol [Coreg] 6.25 mg PO BIDWM 11/27/15 06/04/17 Furosemide [Lasix] 40 mg PO DAILY 11/27/15 06/04/17 Glimepiride [Amaryl] 4 mg PO QAM 11/27/15 06/04/17 Insulin Glargine [Lantus] 30 unit SQ HS 11/27/15 06/04/17 Loratadine [Claritin] 10 mg PO DAILY 11/27/15 06/04/17 Metformin HCl [Glucophage] 1,000 mg PO BID 11/27/15 06/04/17 Potassium Chloride [K-Tab ER] 10 meq PO DAILY 11/27/15 06/04/17 Ropinirole HCl [Requip] 0.25 mg PO HS 11/27/15 06/04/17 Esomeprazole Magnesium [Nexium] 40 mg PO DAILY 02/25/16 06/04/17 Citalopram [CeleXA] 20 mg PO DAILY 04/21/16 06/04/17 Multivitamin [One Daily Essential] 1 tab PO DAILY 04/21/16 06/04/17 HYDROcodone/Acet 7.5/325 mg [[facility] 1 tab PO Q6H PRN 09/09/16 06/04/17 7.5-325 mg] Losartan Potassium [Cozaar] 100 mg PO DAILY 09/09/16 06/04/17 Previous Rx's Medication Instructions Recorded Amitriptyline [Elavil] 25 mg PO QPM #30 tablet 02/27/16 Allergies Allergy/AdvReac Type Severity Reaction Status Date / Time Penicillins [PCN] Allergy Hives Verified 06/04/17 18:06 shellfish derived Allergy Hives Verified 06/04/17 18:06 Constitutional: Denies: fever, chills Cardiovascular: Reports: chest pain. Denies: palpitations, syncope Respiratory: Denies: cough, dyspnea, wheezes Gastrointestinal: Reports: nausea, vomiting. Denies: abdominal pain Musculoskeletal: Denies: back pain Integumentary: Denies: rash Neurological: Denies: headache Psychiatric: Denies: anxiety Hematological/Lymphatic: Denies: easy bleeding Past Medical History - Past Medical History Medical history: Reports: CHF, CVA, diabetes, hyperlipidemia, hypertension Psychiatric history: Reports: depression - Social History Smoking Status: Former smoker Smokeless Tobacco Status: No Alcohol use: Reports: none Drug use: Reports: none Physical Exam - General Limitations: no limitations General appearance: alert, in no apparent distress Course Vital Signs Temperature 98.9 F 10/04/17 21:00 Pulse Rate 100 10/04/17 21:00 Respiratory Rate 18 10/04/17 21:00 Blood Pressure 118/77 10/04/17 21:00 O2 Sat by Pulse Oximetry 95 10/04/17 21:00 Temperature 98.9 F 10/04/17 21:00 Pulse Rate 100 10/04/17 21:00 Respiratory Rate 18 10/04/17 21:00 Blood Pressure 118/77 10/04/17 21:00 O2 Sat by Pulse Oximetry 95 10/04/17 21:00 Oxygen Delivery Oxygen Delivery Nasal Cannula Attestation Statement - Attestation Attestation: I examined this patient and my medical decision-making was reviewed with the Resident Physician. I agree with the documented findings, disposition and treatment plan as described except to the extent set forth below. 71-year-old male presents emergency room for chest pain and pressure. Happened after eating dinner tonight at a restaurant. Substernal chest pressure associated with nausea and near vomiting. Lasted over an hour. EKG is unremarkable and unchanged from unchanged from previous. Right bundle-branch block was present. He looks well in the room. States his pain was relieved with aspirin and nitroglycerin. His last heart catheter was a few years ago in [place] in which she states they did not have to stent anything. He has no documented coronary disease. We will workup from an ACS standpoint. Anticipate observation admission.
[2017-10-04 21:46] LABS: INR 1.1; Prothrombin Time 11.5 Seconds (9.4-12.1)
[2017-10-04 21:48] LABS: Activated Partial Thrombo Time 31.3 Seconds (26.0-36.0)
[2017-10-04 21:53] LABS: BUN/Creatinine Ratio 24 (6-26); Blood Urea Nitrogen 16 mg/dL (8-23); Calcium 9.2 mg/dL (8.6-10.3); Carbon Dioxide 15 mEq/L (23-29); Chloride 99 mEq/L (98-107); Glucose 464 mg/dL (70-105); Osmolality,Calculated 287 (280-300); Potassium 3.8 mEq/L (3.5-5.1); Sodium 128 mEq/L (136-145); Troponin I < 0.03 ng/mL (< 0.04); eGFR For African Americans > 60 (> 60); eGFR For Non-African Americans > 60 (> 60)
[2017-10-04] MEDS ORDERED: D5% in Water 1,000 ML IVC PRN (23:24)
[2017-10-04] MEDS ORDERED: Nitroglycerin 0.4 MG TAB.SUBL SL PRN (23:24)
[2017-10-04] MEDS ORDERED: Dextrose Gel 15 GM/37.5 ML TUBE PO PRN ×2 (23:24)
[2017-10-04] MEDS ORDERED: Naloxone 0.4 MG/ML INJ IVP PRN (23:24)
[2017-10-04] MEDS ORDERED: *HR* Dextrose 50 % in Water (Syg) 50 ML SYRINGE IVP PRN (23:24)
[2017-10-04] MEDS ORDERED: *HR* HYDROcodone/Acet 7.5/325 mg TABLET PO PRN (23:30)
--- NOTE | 2017-10-04 23:37 | Internal Med History&Physical ---
Date of Encounter: 10/04/17 Time of Encounter: 23:33 Internal Medicine - H&P: HPI Chief complaint: chest pain Admitted From: Emergency Dept Plans for Post Hospital Care: Home History of present illness: Mr. Khanna is a 71 year old male since with substernal chest pain and pressure associated with dyspnea and mild diaphoresis. Symptoms started tonight while at rest. He was reluctant to come in, but his called EMS. He received aspirin and nitroglycerin en route by EMS with near complete resolution of his symptoms. Cardiac workup was initiated and results are negative thus far. However, given his presenting symptoms, history of coronary artery disease and response to nitroglycerin, he was admitted to hospitalist service. Upon my assessment of the patient, patient remained chest pain-free. His and son are present and they both confirmed above history. He denies any fevers , cough, congestion, vomiting, or diarrhea. Past Med Surg Social Fam HX - Past Medical History Attestation: Yes The following information was validated with the patient. Source: patient, old records reviewed, obtained from family Medical history: CHF, CVA, diabetes, hyperlipidemia, hypertension Additional medical history: kidney issues Psychiatric history: depression - Past Surgical History Additional surgical history: right breast removed in 2001, breast cancer. right foot surgery and left hand surgery - Social History Smoking Status: Former smoker Smokeless Tobacco Status: No Alcohol use: none Drug use: none Current living situation: Home, With Family Recent Out of Country Travel Within the Last 8 Weeks: No - Family History Father Living Status: Hx Family Cancer: Yes Hx Family Endocrine Disorder: Yes Mother Adopted: No Family Member Ethnicity: Non- Living Status: Hx Family Cardiac Disorders: No Hx Family Respiratory Disorders: No Hx Family Cancer: Yes Hx Family GI Disorders: No Hx Family Endocrine Disorder: No Hx Family Neuromuscular Disorders: No Hx Family Neurologic Disorders: No Hx Family HEENT Disorders: No Hx Family Autoimmune Disorders: No Internal Medicine - H&P: Meds Atorvastatin [Lipitor] 40 mg PO HS 10/04/17 [History] Carvedilol [Coreg] 6.25 mg PO BIDWM 10/04/17 [History] Escitalopram [Lexapro] 10 mg PO DAILY 10/04/17 [History] Esomeprazole Magnesium [Nexium] 40 mg PO DAILY 10/04/17 [History] Furosemide [Lasix] 40 mg PO DAILY 10/04/17 [History] Glimepiride [Amaryl] 4 mg PO DAILY 10/04/17 [History] HYDROcodone/Acet 7.5/325 mg [[place] 7.5-325 mg] 1 tab PO Q6H PRN 10/04/17 [ History] Insulin Glargine [Lantus] 30 units SQ HS 10/04/17 [History] Losartan Potassium [Cozaar] 100 mg PO DAILY 10/04/17 [History] Metformin HCl [Metformin HCl] 1,000 mg PO BID 10/04/17 [History] Potassium Chloride [Klor-Con 10] 10 meq PO DAILY 10/04/17 [History] rOPINIRole [Requip] 0.25 mg PO HS 10/04/17 [History] 3 Allergy/AdvReac Type Severity Reaction Status Date / Time Penicillins [PCN] Allergy Hives Verified 10/04/17 22:31 shellfish derived Allergy Hives Verified 10/04/17 22:31 - Constitutional Constitutional: no chills, no fever(s), no night sweats - EENT Eyes: no blurry vision, no change in vision Ears: no ear pain, no tinnitus Nose, mouth and throat: no nasal congestion, no sinus pressure, no sore throat - Cardiovascular Cardiovascular ROS IM: chest pain, diaphoresis, dyspnea, no edema, no orthopnea , no syncope - Respiratory Respiratory: no cough, no hemoptysis, no chest congestion, no excessive phlegm production, no change in phlegm color, no pain with cough - Gastrointestinal Gastrointestinal: no abdominal pain, no diarrhea, no hematemesis, no hematochezia, no melena, no vomiting - Genitourinary Genitourinary ROS male: no dysuria, no flank pain, no hematuria Additional comments: chronic monson catheter - Musculoskeletal Musculoskeletal ROS IM: no arthralgias, no back pain - Integumentary Integumentary IM: no rash, no jaundice - Neurological Neurological ROS: no dizziness, no focal weakness, no frequent falls, no headache(s) - Psychiatric Psychiatric: no anxiety, no depression - Endocrine Endocrine IM: no polydipsia, no polyuria - Allergic/Immunologic Allergic/Immunologic: no wheezing, no GI upset with certain foods - Constitutional Vitals: Temp Pulse Resp BP Pulse Ox 98.8 F 92 18 122/84 96 10/04/17 22:55 10/04/17 21:54 10/04/17 22:55 10/04/17 22:55 10/04/17 21:54 General appearance: Present: cooperative, A&O X 3, pleasant, answers questions appropriately - Head Head exam: Present: atraumatic, normal inspection - Eye Eye exam: Present: EOMI, normal appearance, PERRL. Absent: scleral icterus Pupils: Present: normal accommodation - ENT ENT exam: Present: mucous membranes dry, normal exam - Neck Neck exam general surgery: Present: full ROM, supple. Absent: tenderness, nuchal rigidity, thyromegaly - Respiratory Respiratory exam: Present: CTAB. Absent: chest wall tenderness, rales, rhonchi , wheezes - Cardiovascular Cardiovascular exam: Present: RRR, +S1, +S2. Absent: diastolic murmur, systolic murmur - GI/Abdominal GI/Abdominal exam: Present: normal bowel sounds, soft. Absent: guarding, hepatomegaly, rebound, splenomegaly, tenderness - Extremities Exam Extremities exam: Present: joint swelling, warm, radial pulses palpable and symmetrical. Absent: calf tenderness, pedal edema, tenderness - Back Exam Back exam: Present: CVA tenderness (R). Absent: CVA tenderness (L) - Neurological Exam Neurological exam: Present: alert, CN II-XII intact, oriented X3, no focal deficits - Psychiatric Psychiatric exam: Present: normal affect, normal mood - Skin Skin exam: Present: dry, warm. Absent: rash Internal Med - H&P Results - Labs CBC & Chem 7: 10/04/17 21:22 10/04/17 21:22 - EKG Data -: EKG Interpreted by Myself - EKG Data Prior EKG available for review: yes When compared to previous EKG: there is no significant change EKG comments: 10/04/17 23:47 NSR; RBBB -- unchanged - Diagnostic Studies Chest x-ray Status: image reviewed by me (cardiomegaly; lung jensen negative) - Assessment and plan (1) Chest pain Current Visit: Yes Status: Acute Assessment and plan: 1. Will trend troponins and EKG's. 2. Will schedule stress test in the morning and consult cardiology if necessary. 3. Will provide SL NTG as needed for chest pain. Qualifiers: Chest pain type: precordial pain Qualified Code(s): R07.2 - Precordial pain (2) Type 2 diabetes mellitus Current Visit: Yes Status: Chronic Assessment and plan: 1. Hold oral meds. 2. Will monitor glucose and provide SSI. 3. Adjust dose as necessary. 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 Heparin SQ.
[2017-10-05] MEDS: *HR* Heparin 5,000 UNIT/ML VIAL SQ SCH ×3 (00:45→18:01)
[2017-10-05] MEDS: Insulin LISPRO 300 UNITS/3 ML VIAL SQ SCH ×4 (00:45→17:53)
[2017-10-05] MEDS ORDERED: Regadenoson 0.4 MG/5 ML SYRINGE IVP ONE (05:34)
[2017-10-05 05:47] LABS: Basophils # 0.1 K/mcL (0.0-0.2); Basophils % 0.7 %; Eosinophils # 0.2 K/mcL (0.0-0.6); Hematocrit 39.4 % (37.5-50.1); Hemoglobin 14.1 g/dL (12.9-16.9); Immature Granulocytes % 0.3 % (0-4); Lymphocytes # 2.6 K/mcL (0.6-4.6); Mean Corpuscular HGB Conc 35.8 g/dL (31.6-35.5); Mean Corpuscular Hemoglobin 30.5 pg (28.0-33.3); Mean Corpuscular Volume 85.3 fL (83.0-100.0); Mean Platelet Volume 11.2 fL (9.4-12.4); Monocytes # 0.6 K/mcL (0.0-1.3); Monocytes % 8.3 %; Neutrophils # 3.9 K/mcL (1.6-8.9); Platelet Count 223 K/mcL (140-400); Red Blood Count 4.62 M/mcL (4.19-5.50); Red Cell Distribution Width 12.7 % (11.5-14.5); Segmented Neutrophils % 52.7 %
[2017-10-05 05:56] LABS: Alanine Aminotransferase 9 Units/L (7-52); Albumin 3.5 g/dL (3.5-5.7); Albumin/Globulin Ratio 1.1 (1.1-2.2); Alkaline Phosphatase 97 Units/L (34-104); Aspartate Amino Transferase 11 Units/L (13-39); BUN/Creatinine Ratio 24 (6-26); Bilirubin,Total 0.5 mg/dL (0.3-1.0); Blood Urea Nitrogen 14 mg/dL (8-23); Calcium 9.2 mg/dL (8.6-10.3); Carbon Dioxide 23 mEq/L (23-29); Chloride 102 mEq/L (98-107); Chol/HDL Ratio 5.1 (0-4.9); Cholesterol 148 mg/dL (< 200); Globulin 3.1 g/dL (2.4-3.5); Glucose 249 mg/dL (70-105); HDL Cholesterol 29 mg/dL (40-59); LDL Cholesterol,Calculated 97 mg/dL (0-99); Magnesium 1.7 mg/dL (1.6-2.6); Osmolality,Calculated 285 (280-300); Potassium 2.9 mEq/L (3.5-5.1); Sodium 133 mEq/L (136-145); Total Protein 6.6 g/dL (6.4-8.9); Triglycerides 109 mg/dL (< 150); eGFR For African Americans > 60 (> 60); eGFR For Non-African Americans > 60 (> 60)
--- NOTE | 2017-10-05 12:40 | Internal Med Progress Note ---
Date of Encounter: 10/05/17 Time of Encounter: 12:40 - Assessment and plan (1) Chest pain Current Visit: Yes Status: Acute Assessment and plan: Presented with substernal chest pain/pressure associated with dyspnea and mild diaphoresis Resolution of symptoms with SL nitroglycerin Denies any return of chest pain and is currently chest pain-free Troponins negative 2 Recent echocardiogram completed 05/2017 with the following findings LVEF 55-60%. Normal RV size. Function low normal. Mild left ventricular diastolic dysfunction. Mild aortic regurgitation. Mildly calcified and thickened aortic valve leaflets. Trileaflet aortic valve with possible partial fusion of the NCC/RCC. No aortic stenosis. Mild pulmonic regurgitation. No pulmonary hypertension. Dilated aortic root and ascending aorta, measuring 4.[address] imaging. Underwent stress test this morning, found to be negative for ischemia Continue SL NTG for chest pain Continuous telemetry With negative workup and resolution of chest pain, patient offered discharged home this evening. Patient refused reports that her brother stating additional night and leave tomorrow. Qualifiers: Chest pain type: precordial pain Qualified Code(s): R07.2 - Precordial pain (2) Type 2 diabetes mellitus Current Visit: Yes Status: Chronic Assessment and plan: History of type 2 diabetes Continues to be hyperglycemic Monitor glucoses closely Increase sliding scale to medium insulin coverage Adjust as necessary Diabetic/cardiac diet Qualifiers: Diabetes mellitus mcfp insulin use: with mcfp use Diabetes mellitus complication status: without complication Qualified Code(s): E11.9 - Type 2 diabetes mellitus without complications; Z79.4 - [facility] (current) use of insulin (3) DVT prophylaxis Current Visit: Yes Status: Acute Assessment and plan: Continue SQ heparin - Time Spent With Patient Total time spent is greater than 50% in coordination of care (as documented) at patient's floor/unit and/or counseling patient: 25 - 35 minutes - Subjective Interval history: Patient seen and examined at bedside today. No acute changes overnight. Denies any chest pain or shortness of breath at this time - Constitutional Vitals: Temp Pulse Resp BP Pulse Ox 97.4 F L 75 16 146/80 95 10/05/17 11:13 10/05/17 11:13 10/05/17 11:13 10/05/17 11:13 10/05/17 11:13 General appearance: Present: cooperative, A&O X 3, pleasant, answers questions appropriately - Head Head exam: Present: atraumatic, normocephalic - Eye Eye exam: Present: PERRL, conjuntiva pink, sclera anicteric Pupils: Present: PERRL - Neck Neck exam general surgery: Present: supple, trachea midline. Absent: lymphadenopathy - Respiratory Respiratory exam: Present: CTAB. Absent: accessory muscle use, rales, rhonchi, wheezes - Cardiovascular Cardiovascular exam: Present: RRR, +S1, +S2. Absent: diastolic murmur, gallop, rubs, systolic murmur - GI/Abdominal GI/Abdominal exam: Present: normal bowel sounds, soft, no peritoneal signs. Absent: distended, tenderness - Extremities Exam Extremities exam: Present: warm, radial pulses palpable and symmetrical. Absent : calf tenderness, cyanotic, pedal edema - Neurological Exam Neurological exam: Present: CN II-XII intact, oriented X3, no focal deficits. Absent: pronater drift, facial droop, speech deficit - Skin Skin exam: Present: dry, intact Internal Medicine: Result - Labs CBC & Chem 7: 10/05/17 04:09 10/05/17 04:09 Labs: Short CBC 10/05/17 Range/Units 04:09 WBC 7.4 (4.3-11.1) K/mcL Hgb 14.1 (12.9-16.9) g/dL Hct 39.4 (37.5-50.1) % Plt Count 223 (140-400) K/mcL Neutrophils # 3.9 (1.6-8.9) K/mcL BMP 10/05/17 04:09 Sodium 133 L Potassium 2.9 L Chloride 102 Carbon Dioxide 23 BUN 14 Creatinine 0.59 L Glucose 249 H Calcium 9.2 Cardiac Enzymes 10/05/17 Range/Units 04:09 Troponin I < 0.03 (< 0.04) ng/mL Liver Function 10/05/17 Range/Units 04:09 Total Bilirubin 0.5 (0.3-1.0) mg/dL AST 11 L (13-39) Units/L ALT 9 (7-52) Units/L Alkaline Phosphatase 97 (34-104) Units/L Albumin 3.5 (3.5-5.7) g/dL - ABG Interpretation ABG results: PT/INR, D-dimer PT 11.5 Seconds (9.4-12.1) 10/04/17 21:22 - VTE Documentation of Mechanical Device: Intermittent pneumatic compression device Consult Discharge Plan - Plan Referrals: Atilio Torrez DO [Primary Care Provider] -
--- NOTE | 2017-10-05 16:25 | Electrocardiograph Report ---
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
[2017-10-05] MEDS ORDERED: Insulin LISPRO 300 UNITS/3 ML VIAL SQ SCH (21:00)
[2017-10-05] MEDS ORDERED: rOPINIRole 0.25 MG TABLET PO SCH (21:00)
[2017-10-06] MEDS: *HR* Heparin 5,000 UNIT/ML VIAL SQ SCH (06:15)
[2017-10-06] MEDS: Insulin LISPRO 300 UNITS/3 ML VIAL SQ SCH ×2 (08:32→12:47)
--- NOTE | 2017-10-06 11:22 | Discharge Summary ---
- NOTES TO OUTPATIENT PROVIDER Notes to Outpatient Provider: Presented with substernal chest pain, dyspnea and mild diaphoresis. Concern for ACS; ACS ruled out. No pending studies at discharge Orders not resulted at time of discharge: Pending orders 10/04/17 23:30 NM marialuisa perf SPECT multi [NM] Routine 10/05/17 06:00 ECG 12 lead ECG [ECG] AM 0600 Date of Encounter: 10/06/17 Time of Encounter: 11:19 - Discharge Diagnosis (1) Chest pain Priority: Primary Status: Acute Assessment and Plan: Presented with substernal chest pain/pressure associated with dyspnea and mild diaphoresis Resolution of symptoms with SL nitroglycerin Has continued to deny any return of chest pain throughout the stay and is currently chest pain-free on day of discharge Troponins negative 2 Recent echocardiogram completed 05/2017 with the following findings LVEF 55-60%. Normal RV size. Function low normal. Mild left ventricular diastolic dysfunction. Mild aortic regurgitation. Mildly calcified and thickened aortic valve leaflets. Trileaflet aortic valve with possible partial fusion of the NCC/RCC. No aortic stenosis. Mild pulmonic regurgitation. No pulmonary hypertension. Dilated aortic root and ascending aorta, measuring 4.[address] imaging. No repeat echo completed Underwent stress test yesterday morning and was found to be negative for ischemia Sent home with sublingual nitroglycerin Instructed to follow-up with PCP within 1 week of discharge. Also, informed return to the ED should chest pain, dyspnea and diaphoresis return. Patient verbalizes understanding denies any further questions at this time. Has had an uneventful hospital course and is discharged in stable condition to return home. Qualifiers: Chest pain type: precordial pain Qualified Code(s): R07.2 - Precordial pain (2) Type 2 diabetes mellitus Priority: Secondary Status: Chronic Assessment and Plan: Continue basal insulin and oral hypoglycemic agents at discharge Qualifiers: Diabetes mellitus exterminator termite insulin use: with exterminator termite use Diabetes mellitus complication status: without complication Qualified Code(s): E11.9 - Type 2 diabetes mellitus without complications; Z79.4 - MCC (current) use of insulin Hospital course: Mr. Khanna is a 71 year old male Please see assessment and plan for hospital course Discharge discussed with: patient, family, nurse - Time Spent with Patient Total time spent providing and/or coordinating discharge services: Less than 30 minutes - Discharge Medications Prescriptions: Nitroglycerin 0.4 mg SL Q5MIN PRN 30 Days #28 tab.subl PRN Reason: Chest Pain Home Medications: Atorvastatin [Lipitor] 40 mg PO HS 10/04/17 [History] Carvedilol [Coreg] 6.25 mg PO BIDWM 10/04/17 [History] Escitalopram [Lexapro] 10 mg PO DAILY 10/04/17 [History] Esomeprazole Magnesium [Nexium] 40 mg PO DAILY 10/04/17 [History] Furosemide [Lasix] 40 mg PO DAILY 10/04/17 [History] Glimepiride [Amaryl] 4 mg PO DAILY 10/04/17 [History] HYDROcodone/Acet 7.5/325 mg [[place] 7.5-325 mg] 1 tab PO Q6H PRN 10/04/17 [ History] Insulin Glargine [Lantus] 30 units SQ HS 10/04/17 [History] Losartan Potassium [Cozaar] 100 mg PO DAILY 10/04/17 [History] Metformin HCl 1,000 mg PO BID 10/04/17 [History] Potassium Chloride [Klor-Con 10] 10 meq PO DAILY 10/04/17 [History] rOPINIRole [Requip] 0.25 mg PO HS 10/04/17 [History] Nitroglycerin 0.4 mg SL Q5MIN PRN 30 Days #28 tab.subl 10/06/17 [Rx] Allergies/Adverse Reactions: 3 Allergy/AdvReac Type Severity Reaction Status Date / Time Penicillins [PCN] Allergy Hives Verified 10/04/17 22:31 shellfish derived Allergy Hives Verified 10/04/17 22:31 Date of admission: 10/04/17 22:41 Primary care physician: Atilio oTrrez Consults: 10/04/17 23:53 Consult to [employer] [CONS] Routine Reason for SW Consult: Possible need for ECF/Home health/Rehab Discharging clinician: Nilton Gonzalez Anticipated date of discharge: 10/06/17 - Constitutional Vitals: Temp Pulse Resp BP Pulse Ox 97.6 F 78 15 108/71 94 10/06/17 07:27 10/06/17 07:27 10/06/17 07:27 10/06/17 07:27 10/06/17 07:27 General appearance: Present: cooperative, A&O X 3, pleasant, answers questions appropriately - Head Head exam: Present: atraumatic, normocephalic - Eye Eye exam: Present: PERRL, conjuntiva pink, sclera anicteric Pupils: Present: PERRL - Neck Neck exam general surgery: Present: supple, trachea midline. Absent: lymphadenopathy - Respiratory Respiratory exam: Present: CTAB. Absent: accessory muscle use, rales, rhonchi, wheezes - Cardiovascular Cardiovascular exam: Present: RRR, +S1, +S2. Absent: diastolic murmur, gallop, rubs, systolic murmur - GI/Abdominal GI/Abdominal exam: Present: normal bowel sounds, soft, no peritoneal signs. Absent: distended, tenderness - Extremities Exam Extremities exam: Present: warm, radial pulses palpable and symmetrical. Absent : calf tenderness, cyanotic, pedal edema - Neurological Exam Neurological exam: Present: CN II-XII intact, oriented X3, no focal deficits. Absent: pronater drift, facial droop, speech deficit - Skin Skin exam: Present: dry, intact - Patient Status Disposition: Home, Self-Care Condition: Fair Overall status at discharge: patient is back to baseline - Discharge Instructions Instructions: Chest Pain (DC), Diabetes Mellitus Type 2 in Adults (DC) Follow Up With: Atilio Torrez DO [Primary Care Provider] - - Diet and Activity Activity: increase activity as tolerated, resume usual activities as tolerated Diet: diabetic diet, low fat, low cholesterol - VTE Documentation of Mechanical Device: Intermittent pneumatic compression device
[2017-10-06 11:23] VITALS: BP 118/74
== END 2017-10-06 13:43 | disposition home or self-care (01) ==
LOC: 3BNU 20:51 → EMEROO 20:51 → 3BNU 23:25
PROVIDERS: ADMIT Pediatrics; ATTEND Internal Medicine Nephrology

== ENCOUNTER 2017-11-02 16:49 | Observation (INO) ==
--- NOTE | 2017-11-02 19:24 | Emergency Department Note ---
Disposition Clinical Impression: Hyperglycemia without ketosis, Hyponatremia, Peripheral artery disease UTI (urinary tract infection) Qualifiers: Urinary tract infection type: site unspecified Hematuria presence: with hematuria Qualified Code(s): N39.0 - Urinary tract infection, site not specified ; R31.9 - Hematuria, unspecified Disposition: Admitted As Inpatient Condition: Good Referrals: Atilio Torrez DO [Primary Care Provider] - Forms: ED Satisfaction Letter Time of Disposition: 22:23 General Adult HPI - General Chief complaint: ED Weakness Stated complaint: "feet are purple/something is wrong" Time Seen by Provider: 11/02/17 19:19 Source: family Mode of arrival: wheelchair Limitations: no limitations Nursing Notes Reviewed: Yes Vital Signs Reviewed: Yes - History of Present Illness HPI Narrative: This is a 72-year-old male brought in by his family because of persistent urinary incontinence since his urologist removed his Chang catheter, excessive thirst with the consumption up to 120 ounces of fluid daily, and increasingly uncooperative behavior at home. In addition, they report discoloration of his feet. Pain Scale: 7 - Related Data Home Medications Medication Instructions Recorded Confirmed Atorvastatin [Lipitor] 40 mg PO HS 10/04/17 10/04/17 Carvedilol [Coreg] 6.25 mg PO BIDWM 10/04/17 10/04/17 Escitalopram [Lexapro] 10 mg PO DAILY 10/04/17 10/04/17 Esomeprazole Magnesium [Nexium] 40 mg PO DAILY 10/04/17 10/04/17 Furosemide [Lasix] 40 mg PO DAILY 10/04/17 10/04/17 Glimepiride [Amaryl] 4 mg PO DAILY 10/04/17 10/04/17 HYDROcodone/Acet 7.5/325 mg [[place] 1 tab PO Q6H PRN 10/04/17 10/04/17 7.5-325 mg] Insulin Glargine [Lantus] 30 units SQ HS 10/04/17 10/04/17 Losartan Potassium [Cozaar] 100 mg PO DAILY 10/04/17 10/04/17 Metformin HCl 1,000 mg PO BID 10/04/17 10/04/17 Potassium Chloride [Klor-Con 10] 10 meq PO DAILY 10/04/17 10/04/17 rOPINIRole [Requip] 0.25 mg PO HS 10/04/17 10/04/17 Previous Rx's Medication Instructions Recorded Nitroglycerin 0.4 mg SL Q5MIN PRN 30 Days #28 10/06/17 tab.subl Allergies Allergy/AdvReac Type Severity Reaction Status Date / Time Penicillins [PCN] Allergy Hives Verified 10/04/17 22:31 shellfish derived Allergy Hives Verified 10/04/17 22:31 All systems ED: reviewed and negative except as stated. Review of Systems: As Per HPI Constitutional: Reports: weakness Eyes: Denies: eye pain, eye discharge, vision change Cardiovascular: Denies: chest pain, palpitations, dyspnea on exertion, edema, syncope Respiratory: Denies: cough, dyspnea, wheezes, hemoptysis, stridor Gastrointestinal: Denies: abdominal pain, nausea, vomiting, diarrhea, constipation, hematemesis, melena, hematochezia Genitourinary: Reports: other (Chronic persistent incontinence) Musculoskeletal: Reports: other (Erythema and borderline cyanosis of the bilateral feet) Integumentary: Reports: other (Erythema and borderline cyanosis of the bilateral feet and toes) Psychiatric: Denies: anxiety, depression, suicidal thoughts, homicidal thoughts , auditory hallucinations, visual hallucinations Hematological/Lymphatic: Denies: easy bleeding, easy bruising Allergic/Immunologic: Denies: facial swelling, urticaria Past Medical History - Past Medical History Medical history: Reports: CHF, CVA, diabetes, hyperlipidemia, hypertension Psychiatric history: Reports: depression - Social History Smoking Status: Former smoker Smokeless Tobacco Status: No Alcohol use: Reports: none Drug use: Reports: none Physical Exam - General Limitations: no limitations General appearance: alert, in no apparent distress - Head Head exam: atraumatic, normocephalic - Eye Eye exam: Present: normal appearance, PERRL, EOMI - Neck Neck exam: Present: normal inspection, full ROM, trachea midline - Chest Chest inspection: Present: normal inspection, symmetric chest wall rise - Respiratory Respiratory exam: Present: normal lung sounds bilaterally - Cardiovascular Cardiovascular exam: Present: regular rate, normal rhythm, normal heart sounds - Abdominal Exam Abdominal exam: Present: soft, Non-Tender. Absent: tenderness, distention, guarding, rebound, rigidity - Extremities Exam Extremities exam: Present: normal inspection, other (Both feet show erythema from the malleoli distally extending to the toes. Both feet are cool to the touch, although pedal pulses are faintly palpable, the distal toes borderline cyanotic). Absent: tenderness, pedal edema - Neurological Exam Neurological exam: Present: alert, CN II-XII intact. Absent: motor sensory deficit - Psychiatric Psychiatric exam: Present: normal affect - Skin Skin exam: Present: warm, dry, other (Note comments above about skin color of the feet) Course Course Narrative: This is a 72-year-old male who on exam appears to have significant bilateral peripheral arterial disease affecting his feet. Why he has had so much fluid consumption is unclear. Vital Signs Temperature 97.5 F L 11/02/17 17:14 Pulse Rate 109 11/02/17 17:14 Respiratory Rate 18 11/02/17 17:14 Blood Pressure 118/75 11/02/17 17:14 O2 Sat by Pulse Oximetry 96 11/02/17 17:14 Temperature 97.5 F L 11/02/17 19:26 Pulse Rate 100 11/02/17 19:35 Respiratory Rate 16 11/02/17 19:35 Blood Pressure 120/75 11/02/17 19:35 O2 Sat by Pulse Oximetry 98 11/02/17 19:35 Oxygen Delivery Oxygen Delivery Room Air Medical Decision Making - MDM Narrative Medical decision making narrative: This is a 72-year-old male with hyperglycemia apparently causing excessive water intake. As result, he has both hyperglycemia without evidence of DKA along with hyponatremia. His UA showed too many white blood cells to count as well as hematuria. Chest x-ray and CT brain were unremarkable. Insulin was ordered to temporize his blood glucose. I believe glucose control is the mcknight in this patient. Ideally if his glucose is controlled, his thirst will be decreased and he will diurese effectively with yarsani of his sodium to a normal concentration. I discussed his case with the on-call hospitalist, who accepted him for admission I also discussed his peripheral artery disease that is apparent on exam and his benefit of following up with vascular surgery - Lab Data Lab results reviewed: Yes I reviewed the patient's lab results. Lab results narrative: CBC was unremarkable BMP showed hyponatremia at 125, hypochloremia at 94, was elevated at 735 Osmolality was 295 Lactic acid was normal at 1.5 LFT was unremarkable UA showed grossly increased white blood count as well as hematuria Result diagrams: 11/02/17 20:23 11/02/17 20:23 Lab Results 11/02/17 11/02/17 11/02/17 Range/Units 20:23 20:23 20:23 WBC 6.5 (4.3-11.1) K/mcL RBC 4.95 (4.19-5.50) M/mcL Hgb 14.8 (12.9-16.9) g/dL Hct 41.6 (37.5-50.1) % MCV 84.0 (83.0-100.0) fL MCH 29.9 (28.0-33.3) pg MCHC 35.6 H (31.6-35.5) g/dL RDW 12.9 (11.5-14.5) % Plt Count 200 (140-400) K/mcL MPV 11.5 (9.4-12.4) fL Immature Gran % 0.3 (0-4) % Seg Neutrophils % 65.9 % Lymphocytes % 25.5 % Monocytes % 6.9 % Eosinophils % 0.9 % Basophils % 0.5 % Neutrophils # 4.3 (1.6-8.9) K/mcL Lymphocytes # 1.7 (0.6-4.6) K/mcL Monocytes # 0.5 (0.0-1.3) K/mcL Eosinophils # 0.1 (0.0-0.6) K/mcL Basophils # 0.0 (0.0-0.2) K/mcL Sodium 125 L (136-145) mEq/L Potassium 4.1 (3.5-5.1) mEq/L Chloride 94 L (98-107) mEq/L Carbon Dioxide 21 L (23-29) mEq/L BUN 11 (8-23) mg/dL Creatinine 0.84 (0.70-1.30) mg/dL Est GFR ( Amer) > 60 (> 60) Est GFR (Non-Af Amer) > 60 (> 60) BUN/Creatinine Ratio 13 (6-26) Glucose 735 H* (70-105) mg/dL Calculated Osmolality 295 (280-300) Lactic Acid 1.5 (0.5-2.2) mmol/L Calcium 9.6 (8.6-10.3) mg/dL Total Bilirubin 0.5 (0.3-1.0) mg/dL AST 13 (13-39) Units/L ALT 14 (7-52) Units/L Alkaline Phosphatase 114 H (34-104) Units/L Creatine Kinase 38 (30-223) Units/L Serum Total Protein 7.4 (6.4-8.9) g/dL Albumin 3.9 (3.5-5.7) g/dL Globulin 3.5 (2.4-3.5) g/dL Albumin/Globulin Ratio 1.1 (1.1-2.2) Urine Color (Yellow) Urine Clarity (Clear) Urine pH (5.0-8.0) pH Units Ur Specific [place] (1.010-1.025) Urine Protein (Neg-Trace) mg/dL Urine Glucose (UA) (Normal) mg/dL Urine Ketones (Negative) mg/dL Urine Blood (Negative) Urine Nitrite (Negative) Urine Bilirubin (Negative) Urine Urobilinogen (Normal) mg/dL Ur Leukocyte Esterase (Negative) Urine Microscopic RBC (0-3) per hpf Urine Microscopic WBC (0-3) per hpf Ur Squamous Epith Cells (None-Few) per lpf Urine Bacteria (None-Few) per hpf Hyaline Casts (None-Few) per lpf Urine Yeast (None Seen) per hpf Ur Culture Indicated? (NO) 11/02/17 Range/Units 20:38 WBC (4.3-11.1) K/mcL RBC (4.19-5.50) M/mcL Hgb (12.9-16.9) g/dL Hct (37.5-50.1) % MCV (83.0-100.0) fL MCH (28.0-33.3) pg MCHC (31.6-35.5) g/dL RDW (11.5-14.5) % Plt Count (140-400) K/mcL MPV (9.4-12.4) fL Immature Gran % (0-4) % Seg Neutrophils % % Lymphocytes % % Monocytes % % Eosinophils % % Basophils % % Neutrophils # (1.6-8.9) K/mcL Lymphocytes # (0.6-4.6) K/mcL Monocytes # (0.0-1.3) K/mcL Eosinophils # (0.0-0.6) K/mcL Basophils # (0.0-0.2) K/mcL Sodium (136-145) mEq/L Potassium (3.5-5.1) mEq/L Chloride (98-107) mEq/L Carbon Dioxide (23-29) mEq/L BUN (8-23) mg/dL Creatinine (0.70-1.30) mg/dL Est GFR ( Amer) (> 60) Est GFR (Non-Af Amer) (> 60) BUN/Creatinine Ratio (6-26) Glucose (70-105) mg/dL Calculated Osmolality (280-300) Lactic Acid (0.5-2.2) mmol/L Calcium (8.6-10.3) mg/dL Total Bilirubin (0.3-1.0) mg/dL AST (13-39) Units/L ALT (7-52) Units/L Alkaline Phosphatase (34-104) Units/L Creatine Kinase (30-223) Units/L Serum Total Protein (6.4-8.9) g/dL Albumin (3.5-5.7) g/dL Globulin (2.4-3.5) g/dL Albumin/Globulin Ratio (1.1-2.2) Urine Color Yellow (Yellow) Urine Clarity Turbid A (Clear) Urine pH 5.5 (5.0-8.0) pH Units Ur Specific [place] > 1.030 H (1.010-1.025) Urine Protein 100 H (Neg-Trace) mg/dL Urine Glucose (UA) 500 H (Normal) mg/dL Urine Ketones Negative (Negative) mg/dL Urine Blood Large H (Negative) Urine Nitrite Negative (Negative) Urine Bilirubin Negative (Negative) Urine Urobilinogen Normal (Normal) mg/dL Ur Leukocyte Esterase Moderate H (Negative) Urine Microscopic RBC 30-50 H (0-3) per hpf Urine Microscopic WBC TNTC H (0-3) per hpf Ur Squamous Epith Cells None Seen (None-Few) per lpf Urine Bacteria Moderate H (None-Few) per hpf Hyaline Casts None Seen (None-Few) per lpf Urine Yeast Many H (None Seen) per hpf Ur Culture Indicated? YES A (NO) - Radiology Data Radiology results reviewed: Yes I reviewed the patient's radiology results. CT head was interpreted as showing no acute process Chest x-ray showed no acute process
[2017-11-02 20:52] LABS: Bilirubin,Urine Negative (Negative); Blood,Urine Large (Negative); Clarity,Urine Turbid (Clear); Color,Urine Yellow (Yellow); Glucose,Urine (UA) 500 mg/dL (Normal); Ketones,Urine Negative (Negative); Leukocyte Esterase,Urine Moderate (Negative); Nitrite,Urine Negative (Negative); PH,Urine 5.5 pH Units (5.0-8.0); Protein,Urine 100 mg/dL (Neg-Trace); Specific Gravity,Urine > 1.030 (1.010-1.025); Urobilinogen,Urine Normal (Normal)
[2017-11-02 20:58] LABS: Alanine Aminotransferase 14 Units/L (7-52); Albumin 3.9 g/dL (3.5-5.7); Albumin/Globulin Ratio 1.1 (1.1-2.2); Alkaline Phosphatase 114 Units/L (34-104); Aspartate Amino Transferase 13 Units/L (13-39); BUN/Creatinine Ratio 13 (6-26); Bilirubin,Total 0.5 mg/dL (0.3-1.0); Blood Urea Nitrogen 11 mg/dL (8-23); Calcium 9.6 mg/dL (8.6-10.3); Carbon Dioxide 21 mEq/L (23-29); Chloride 94 mEq/L (98-107); Creatine Kinase 38 Units/L (30-223); Globulin 3.5 g/dL (2.4-3.5); Glucose 735 mg/dL (70-105); Osmolality,Calculated 295 (280-300); Potassium 4.1 mEq/L (3.5-5.1); Sodium 125 mEq/L (136-145); Total Protein 7.4 g/dL (6.4-8.9); eGFR For Non-African Americans > 60 (> 60)
[2017-11-02 21:01] LABS: Basophils % 0.5 %; Eosinophils # 0.1 K/mcL (0.0-0.6); Eosinophils % 0.9 %; Hematocrit 41.6 % (37.5-50.1); Hemoglobin 14.8 g/dL (12.9-16.9); Immature Granulocytes % 0.3 % (0-4); Lymphocytes # 1.7 K/mcL (0.6-4.6); Lymphocytes % 25.5 %; Mean Corpuscular HGB Conc 35.6 g/dL (31.6-35.5); Mean Corpuscular Hemoglobin 29.9 pg (28.0-33.3); Mean Platelet Volume 11.5 fL (9.4-12.4); Monocytes # 0.5 K/mcL (0.0-1.3); Monocytes % 6.9 %; Neutrophils # 4.3 K/mcL (1.6-8.9); Platelet Count 200 K/mcL (140-400); Red Blood Count 4.95 M/mcL (4.19-5.50); Red Cell Distribution Width 12.9 % (11.5-14.5); Segmented Neutrophils % 65.9 %
[2017-11-02 21:19] LABS: Bacteria,Urine Moderate per hpf (None-Few); WBC,Urine TNTC per hpf (0-3); Yeast,Urine Many per hpf (None Seen)
[2017-11-02 21:20] LABS: Hyaline Casts,Urine None Seen per lpf (None-Few); RBC,Urine 30-50 per hpf (0-3); Squamous Epithelial Cell,Urine None Seen per lpf (None-Few)
[2017-11-02] MEDS ORDERED: Insulin Regular, Human 100 UNIT/ML IV ONE (21:44)
[2017-11-02] MEDS ORDERED: cefTRIAXone 1,000 MG in Water for inj. (sterile) 20 ML 10 ML IVP ONE (21:54)
--- NOTE | 2017-11-02 22:46 | Internal Med History&Physical ---
Date of Encounter: 11/02/17 Time of Encounter: 22:43 Internal Medicine - H&P: HPI Chief complaint: Urinary incontinence Admitted From: Home History of present illness: Mr. Khanna is a 72 year old male with a PMH of chronic urinary incontinence with bladder stimulator in place, diastolic CHF, CVA without residual deficits, poorly controlled diabetes mellitus type 2, hypertension, hyperlipidemia, remote breast cancer, and peripheral artery disease presented from home with family c/o groin irritation secondary to urinary incontinence, dysuria, and bilateral flank pain. Patient has a history of neurogenic bladder with a bladder stimulator in place. His monson was removed on 10/22/17 by his urologist, Dr. Bateman, after the patient c/o penile discomfort from chronic monson use. is at bedside and reports patient has been filling up multiple depends diapers throughout the day and has been drinking lots for fluids. Of note, his blood glucose level was 735 in the ED. Patient reports taking Insulin 30 units at night as prescribed. Son is at bedside and reports patient's feet were blue yesterday and have now turned red. Patient has a history of PAD and has been evaluated by Dr. Harrison, vascular surgeon, in the past. Past Med Surg Social Fam HX - Past Medical History Medical history: CHF, CVA, diabetes, hyperlipidemia, hypertension Additional medical history: kidney issues Psychiatric history: depression - Past Surgical History Additional surgical history: right breast removed in 2001, breast cancer. right foot surgery and left hand surgery - Social History Smoking Status: Former smoker Smokeless Tobacco Status: No Alcohol use: none Drug use: none Occupational status: retired Current living situation: Home, With Family Activity Level: Uses cane/walker Recent Out of Country Travel Within the Last 8 Weeks: No Exposure or Possible Exposure to Illness During Travel: No - Family History Father Living Status: Hx Family Cancer: Yes Hx Family Endocrine Disorder: Yes Mother Adopted: No Family Member Ethnicity: Non- Living Status: Hx Family Cardiac Disorders: No Hx Family Respiratory Disorders: No Hx Family Cancer: Yes Hx Family GI Disorders: No Hx Family Endocrine Disorder: No Hx Family Neuromuscular Disorders: No Hx Family Neurologic Disorders: No Hx Family HEENT Disorders: No Hx Family Autoimmune Disorders: No Internal Medicine - H&P: Meds Atorvastatin [Lipitor] 40 mg PO HS 10/04/17 [History] Carvedilol [Coreg] 6.25 mg PO BIDWM 10/04/17 [History] Escitalopram [Lexapro] 10 mg PO DAILY 10/04/17 [History] Esomeprazole Magnesium [Nexium] 40 mg PO DAILY 10/04/17 [History] Furosemide [Lasix] 40 mg PO DAILY 10/04/17 [History] Glimepiride [Amaryl] 4 mg PO DAILY 10/04/17 [History] HYDROcodone/Acet 7.5/325 mg [[place] 7.5-325 mg] 1 tab PO Q6H PRN 10/04/17 [ History] Insulin Glargine [Lantus] 30 units SQ HS 10/04/17 [History] Losartan Potassium [Cozaar] 100 mg PO DAILY 10/04/17 [History] Metformin HCl 1,000 mg PO BID 10/04/17 [History] Potassium Chloride [Klor-Con 10] 10 meq PO DAILY 10/04/17 [History] rOPINIRole [Requip] 0.25 mg PO HS 10/04/17 [History] Nitroglycerin 0.4 mg SL Q5MIN PRN 30 Days #28 tab.subl 10/06/17 [Rx] 3 Allergy/AdvReac Type Severity Reaction Status Date / Time Penicillins [PCN] Allergy Hives Verified 10/04/17 22:31 shellfish derived Allergy Hives Verified 10/04/17 22:31 All Systems PM: A 10-system review of systems was performed and is negative for pertinent findings except as documented above in the HPI. - Constitutional Constitutional: chills, fatigue, lethargy, weakness, no anorexia, no fever(s), no weight gain, no weight loss - EENT Eyes: no blurry vision, no diplopia Nose, mouth and throat: no sinus pain, no sore throat - Cardiovascular Cardiovascular ROS IM: no chest pain, no dyspnea, no lightheadedness, no palpitations, no syncope - Respiratory Respiratory: no cough, no dyspnea - Gastrointestinal Gastrointestinal: no abdominal pain, no constipation, no diarrhea, no nausea, no vomiting - Genitourinary Genitourinary ROS male: dysuria, flank pain, genital pain, urinary frequency, urinary incontinence, urinary urgency, no hematuria - Musculoskeletal Musculoskeletal ROS IM: no arthralgias, no back pain, no numbness, no tingling - Integumentary Integumentary IM: erythema, new lesions, rash, no skin ulcer - Neurological Neurological ROS: weakness, no abnormal gait, no confusion, no dizziness, no frequent falls, no numbness, no tremor(s) - Psychiatric Psychiatric: no anxiety, no depression - Endocrine Endocrine IM: fatigue, polydipsia, polyuria, no polyphagia - Hematologic/Lymphatic Hematologic/Lymphatic: no easy bleeding, no easy bruising - Constitutional Vitals: Temp Pulse Resp BP Pulse Ox 97.5 F L 100 16 120/75 98 11/02/17 19:26 11/02/17 19:35 11/02/17 19:35 11/02/17 19:35 11/02/17 19:35 General appearance: Present: cooperative, A&O X 3, pleasant, obese, answers questions appropriately - Head Head exam: Present: atraumatic, normocephalic - Eye Eye exam: Present: EOMI, conjuntiva pink, sclera anicteric - ENT ENT exam: Present: mucous membranes moist, normal oropharynx - Neck Neck exam general surgery: Present: supple, trachea midline. Absent: lymphadenopathy - Respiratory Respiratory exam: Present: CTAB. Absent: accessory muscle use, rales, rhonchi, wheezes - Cardiovascular Cardiovascular exam: Present: RRR, +S1, +S2. Absent: diastolic murmur, gallop, rubs, systolic murmur - Expanded Cardiovascular Exam Peripheral pulses: 2+: Posterior Tibialis (L), Posterior Tibialis (R) - GI/Abdominal GI/Abdominal exam: Present: normal bowel sounds, soft, no peritoneal signs. Absent: distended, guarding, tenderness - Extremities Exam Extremities exam: Present: normal capillary refill, warm, radial pulses palpable and symmetrical. Absent: calf tenderness, cyanotic, pedal edema - Back Exam Back exam: Present: CVA tenderness (L), CVA tenderness (R), normal inspection - Neurological Exam Neurological exam: Present: alert, CN II-XII intact, oriented X3, no focal deficits. Absent: pronater drift, facial droop, speech deficit - Psychiatric Psychiatric exam: Present: normal affect, normal mood - Skin Skin exam: Present: erythema (groin erythema due to incontinence, bilateral onychomycosis with feet erythema up to the ankles and erythemaous border), intact, rash, warm. Absent: normal color Internal Med - H&P Results - Labs CBC & Chem 7: 11/02/17 20:23 11/02/17 20:23 Labs: Short CBC 11/02/17 Range/Units 20:23 WBC 6.5 (4.3-11.1) K/mcL Hgb 14.8 (12.9-16.9) g/dL Hct 41.6 (37.5-50.1) % Plt Count 200 (140-400) K/mcL Neutrophils # 4.3 (1.6-8.9) K/mcL BMP 11/02/17 20:23 Sodium 125 L Potassium 4.1 Chloride 94 L Carbon Dioxide 21 L BUN 11 Creatinine 0.84 Glucose 735 H* Calcium 9.6 Liver Function 11/02/17 Range/Units 20:23 Total Bilirubin 0.5 (0.3-1.0) mg/dL AST 13 (13-39) Units/L ALT 14 (7-52) Units/L Alkaline Phosphatase 114 H (34-104) Units/L Albumin 3.9 (3.5-5.7) g/dL Urine 11/02/17 Range/Units 20:38 Urine Color Yellow (Yellow) Urine Clarity Turbid A (Clear) Urine pH 5.5 (5.0-8.0) pH Units Ur Specific [place] > 1.030 H (1.010-1.025) Urine Protein 100 H (Neg-Trace) mg/dL Urine Glucose (UA) 500 H (Normal) mg/dL - Pulse Oximetry Interpretation Digit-Finger O2 Sat by Pulse Oximetry: 96 (On room air) - Impressions ITS Impressions Chest X-Ray 11/02/17 19:20 IMPRESSION: No acute focal infiltrate. D/ / Serjio Hurst MD / Serjio Hurst MD Interpreting Provider: Serjio Hurst MD Head CT 11/02/17 20:43 IMPRESSION: Overall stable examination. No evidence for acute intracranial hemorrhage, mass effect, or midline shift. D/ / Carlitos Santana MD / Carlitos Santana MD Interpreting Provider: Carlitos Santana MD - Assessment and plan (1) Hyponatremia Current Visit: Yes Status: Acute Assessment and plan: Euvolemic hyponatremia in the setting of hyperglycemia/ UTI Na level 125 on admission, likely due to polydipsia Continue gentle hydration given history of CHF, goal increase in Na level < 8 mEq/L in 24 hours to prevent Osmotic demyelination syndrome Continue monitoring BMP (2) UTI (urinary tract infection) Current Visit: Yes Status: Acute Assessment and plan: Patient with chronic indwelling monson that was recently removed on 10/22/17 by urologist UA revealed turbid appearance, large blood, moderate leukocyte estrase, negative nitrites, TNTC WBCs, moderat bacteria, no hyaline casts Patient has a h/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 His monson was removed on 10/22/17 by his urologist, Dr. Batmean, after the patient c/o penile discomfort from chronic monson use. Recommend outpatient urology follow up Qualifiers: Urinary Incontinence type: unspecified incontinence Qualified Code(s): R32 - Unspecified urinary incontinence (4) Yeast infection of the skin Current Visit: Yes Status: Acute Assessment and plan: Patient reports filling up multiple depends diapers throughout the day due to drinking lots for fluids/ hyperglycemia. He has erythema in the groin region Will start Nystatin powder TID to groin Continue monson cath Encourage ambulation/ turn patient q2h PT/OT consulted (5) Tinea pedis of both feet Current Visit: Yes Status: Acute Assessment and plan: Patient with chronic onychomycosis presents with yeast infection of bilateral feet Start Lotrimin 1% BID to bilateral feet (6) Hyperglycemia without ketosis Current Visit: Yes Status: Acute Assessment and plan: Anion gap 10 Continue basal and SSI Continue accu-checks ACHS Continue close monitoring (7) Uncontrolled type II diabetes mellitus Current Visit: Yes Status: Chronic Assessment and plan: HGB a1c level 11.7 on 06/04/17 Continue basal and SSI Continue accu-checks ACHS Continue close monitoring Qualifiers: Diabetes mellitus snf 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 use: 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 Diabetes mellitus complication status: with hyperglycemia Qualified Code(s): E11.65 - Type 2 diabetes mellitus with hyperglycemia (8) Diastolic CHF, chronic Current Visit: No Status: Chronic Assessment and plan: Not in acute exacerbation Echo 06/06/17 revealed LVEF 55-60%, mild LV diastolic dysfunction, mild aortic regurgitation, calcified aortic valve, no aortic stenosis, dilated aortic root and ascending aorta measuring 4.7cm, mild pulmonic regurgitation, no pulmonay HTN Continue home meds (9) HTN (hypertension) Current Visit: No Status: Chronic Assessment and plan: Continue home meds Qualifiers: Hypertension type: essential hypertension Qualified Code(s): I10 - Essential (primary) hypertension (10) HLD (hyperlipidemia) Current Visit: No Status: Chronic Assessment and plan: Continue home meds Qualifiers: Hyperlipidemia type: unspecified Qualified Code(s): E78.5 - Hyperlipidemia , unspecified (11) Peripheral artery disease Current Visit: Yes Status: Chronic Assessment and plan: Son is at bedside and reports patient's feet were blue yesterday and have now turned red. Patient has a history of PAD and has been evaluated by Dr. Harrison, vascular surgeon, in the past. NGUYEN ordered Continue home meds Recommend outpatient vascular surgery follow up (12) History of CVA (cerebrovascular accident) without residual deficits Current Visit: No Status: Chronic Assessment and plan: Continue monitoring (13) Obesity (BMI 30.0-34.9) Current Visit: Yes Status: Chronic Assessment and plan: Lifestyle modification (14) DVT prophylaxis Current Visit: Yes Status: Acute Assessment and plan: Heparin subQ TID - Time Spent With Patient Total time spent is greater than 50% in coordination of care (as documented) at patient's floor/unit and/or counseling patient:
[2017-11-02] MEDS ORDERED: Acetaminophen 325 MG TABLET PO PRN (23:42)
[2017-11-02] MEDS ORDERED: Ondansetron 4 MG/2 ML VIAL IVP PRN (23:42)
[2017-11-02] MEDS ORDERED: *HR* Dextrose 50 % in Water (Syg) 50 ML SYRINGE IVP PRN (23:42)
[2017-11-02] MEDS ORDERED: D5% in Water 1,000 ML IVC PRN (23:42)
[2017-11-02] MEDS ORDERED: Dextrose Gel 15 GM/37.5 ML TUBE PO PRN ×2 (23:42)
[2017-11-02] MEDS ORDERED: Naloxone 0.4 MG/ML INJ IVP PRN (23:42)
[2017-11-02] MEDS ORDERED: 0.9 % Sodium Chloride 1,000 ML IVC SCH (23:45)
[2017-11-02] MEDS ORDERED: *HR* HYDROcodone/Acet 7.5/325 mg TABLET PO PRN (23:55)
[2017-11-02] MEDS ORDERED: Nitroglycerin 0.4 MG TAB.SUBL SL PRN (23:55)
[2017-11-03] MEDS: Insulin LISPRO 300 UNITS/3 ML VIAL SQ SCH ×5 (00:51→17:54)
[2017-11-03] MEDS: rOPINIRole 0.25 MG TABLET PO SCH ×2 (00:52→20:34)
[2017-11-03] MEDS: Insulin DETEMIR 100 UNIT/ML X5UNITS SQ SCH ×2 (01:01→20:35)
[2017-11-03] MEDS: Clotrimazole 1% CRM 15 GM TUBE TP SCH ×3 (01:05→20:35)
[2017-11-03] MEDS: Nystatin POWDER 30 GM BOTTLE TP SCH ×4 (01:06→20:35)
[2017-11-03 01:46] LABS: Hematocrit 39.6 % (37.5-50.1); Mean Corpuscular HGB Conc 35.4 g/dL (31.6-35.5); Mean Corpuscular Hemoglobin 29.7 pg (28.0-33.3); Mean Corpuscular Volume 84.1 fL (83.0-100.0); Mean Platelet Volume 11.7 fL (9.4-12.4); Platelet Count 188 K/mcL (140-400); Red Blood Count 4.71 M/mcL (4.19-5.50); Red Cell Distribution Width 12.8 % (11.5-14.5)
[2017-11-03 01:51] LABS: BUN/Creatinine Ratio 14 (6-26); Blood Urea Nitrogen 11 mg/dL (8-23); Calcium 9.7 mg/dL (8.6-10.3); Carbon Dioxide 23 mEq/L (23-29); Chloride 98 mEq/L (98-107); Glucose 368 mg/dL (70-105); Magnesium 1.8 mg/dL (1.6-2.6); Osmolality,Calculated 284 (280-300); Phosphorous 2.5 mg/dL (2.7-4.5); Potassium 3.5 mEq/L (3.5-5.1); Sodium 130 mEq/L (136-145); eGFR For Non-African Americans > 60 (> 60)
[2017-11-03 01:57] LABS: Prothrombin Time 11.4 Seconds (9.4-12.1)
[2017-11-03] MEDS ORDERED: Insulin Human Regular 10 UNIT in 0.9 % Sodium Chloride 10 ML IV ONE (05:34)
[2017-11-03] MEDS: *HR* Heparin 5,000 UNIT/ML VIAL SQ SCH ×3 (06:19→20:34)
[2017-11-03 08:03] LABS: Estimated Average Glucose 341 mg/dl; Hemoglobin A1C 13.5 %
[2017-11-03 08:42] LABS: BUN/Creatinine Ratio 15 (6-26); Blood Urea Nitrogen 10 mg/dL (8-23); Calcium 9.4 mg/dL (8.6-10.3); Carbon Dioxide 22 mEq/L (23-29); Chloride 103 mEq/L (98-107); Glucose 164 mg/dL (70-105); Osmolality,Calculated 279 (280-300); Potassium 3.4 mEq/L (3.5-5.1); Sodium 133 mEq/L (136-145); eGFR For Non-African Americans > 60 (> 60)
--- NOTE | 2017-11-03 14:11 | Internal Med Progress Note ---
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 Admitted with urinary tract infection. UA revealed turbid appearance, large blood, moderate leukocyte estrase, negative nitrites. Urine culture remains pending. Continue treating with Levaquin., Continue IV fluid. Afebrile overnight, hemodynamically stable. No leukocytosis with WBC 7.8 Qualifiers: Urinary tract infection type: site unspecified Hematuria presence: with hematuria Qualified Code(s): N39.0 - Urinary tract infection, site not specified; R31.9 - Hematuria, unspecified (2) HTN (hypertension) Current Visit: No Status: Chronic Assessment and plan: 11/03-BP remains stable, Continue home meds Qualifiers: Hypertension type: essential hypertension Qualified Code(s): I10 - Essential (primary) hypertension (3) Uncontrolled type II diabetes mellitus Current Visit: Yes Status: Chronic Assessment and plan: HGB a1c level 11.7 on 06/04/17 Continue basal and SSI Continue accu-checks ACHS Continue close monitoring 11/03-poorly controlled type 2 diabetes. Hyperglycemia persists throughout this afternoon with fingerstick blood glucose of 2:15. 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 half-way insulin use status Diabetes mellitus complication status: with hyperglycemia Qualified Code(s): E11.65 - Type 2 diabetes mellitus with hyperglycemia (4) HLD (hyperlipidemia) Current Visit: No Status: Chronic Assessment and plan: Continue Lipitor Qualifiers: Hyperlipidemia type: unspecified Qualified Code(s): E78.5 - Hyperlipidemia , unspecified (5) Hyperglycemia without ketosis Current Visit: Yes Status: Acute Assessment and plan: See above (6) Hyponatremia Current Visit: Yes Status: Acute Assessment and plan: Euvolemic hyponatremia in the setting of hyperglycemia/ UTI Na level 125 on admission, likely due to polydipsia Continue gentle hydration given history of CHF, goal increase in Na level < 8 mEq/L in 24 hours to prevent Osmotic demyelination syndrome Continue monitoring BMP 10/24-serum sodium improving, 133. Continue monitor. (7) Peripheral artery disease Current Visit: Yes Status: Chronic Assessment and plan: Son is at bedside and reports patient's feet were blue yesterday and have now turned red. Patient has a history of PAD and has been evaluated by Dr. Harrison, vascular surgeon, in the past. NGUYEN ordered Continue home meds Recommend outpatient vascular surgery follow up 11/03- see above. Feet no longer blue, now pale and warm. Awaiting completion of NGUYEN (8) Diastolic CHF, chronic Current Visit: No Status: Chronic Assessment and plan: Not in acute exacerbation Echo 06/06/17 revealed LVEF 55-60%, mild LV diastolic dysfunction, mild aortic regurgitation, calcified aortic valve, no aortic stenosis, dilated aortic root and ascending aorta measuring 4.7cm, mild pulmonic regurgitation, no pulmonay HTN Continue home meds 11/03-not in acute exacerbation. See plan above (9) History of CVA (cerebrovascular accident) without residual deficits Current Visit: No Status: Chronic Assessment and plan: Continue monitoring (10) Yeast infection of the skin Current Visit: Yes Status: Acute Assessment and plan: Patient reports filling up multiple depends diapers throughout the day due to drinking lots for fluids/ hyperglycemia. He has erythema in the groin region Will start Nystatin powder TID to groin Continue monson cath Encourage ambulation/ turn patient q2h PT/OT consulted 11/03-no appreciable changes overnight. Continue with nystatin powder. Monson catheter in place, continue. Frequent turning. (11) Urinary incontinence Current Visit: Yes Status: Chronic Assessment and plan: Patient with chronic urinary incontinence Patient has a history of neurogenic bladder with a bladder stimulator in place. His monson was removed on 10/22/17 by his urologist, Dr. Bateman, after the patient c/o penile discomfort from chronic monson use. Recommend outpatient urology follow up 11/03-Monson remains in place Qualifiers: Urinary Incontinence type: unspecified incontinence Qualified Code(s): R32 - Unspecified urinary incontinence (12) Tinea pedis of both feet Current Visit: Yes Status: Acute Assessment and plan: Patient with chronic onychomycosis presents with yeast infection of bilateral feet Start Lotrimin 1% BID to bilateral feet (13) Obesity (BMI 30.0-34.9) Current Visit: Yes Status: Chronic Assessment and plan: Discussed Lifestyle modification (14) DVT prophylaxis Current Visit: Yes Status: Acute Assessment and plan: Continue Heparin subQ TID - Time Spent With Patient Total time spent is greater than 50% in coordination of care (as documented) at patient's floor/unit and/or counseling patient: less than 15 minutes - Subjective Interval history: Patient seen and examined at bedside today. Reports that his urinary symptoms are improving. Denies any other complaints or concerns at this time. - Constitutional Vitals: Temp Pulse Resp BP Pulse Ox 98.0 F 71 15 121/69 97 11/03/17 11:21 11/03/17 11:21 11/03/17 11:21 11/03/17 11:21 11/03/17 11:21 General appearance: Present: cooperative, A&O X 3, pleasant, obese, answers questions appropriately - Head Head exam: Present: atraumatic, normocephalic - Eye Eye exam: Present: PERRL, conjuntiva pink, sclera anicteric Pupils: Present: PERRL - Neck Neck exam general surgery: Present: supple, trachea midline. Absent: lymphadenopathy - Respiratory Respiratory exam: Present: CTAB. Absent: accessory muscle use, rales, rhonchi, wheezes - Cardiovascular Cardiovascular exam: Present: RRR, +S1, +S2. Absent: diastolic murmur, gallop, rubs, systolic murmur - GI/Abdominal GI/Abdominal exam: Present: normal bowel sounds, soft, no peritoneal signs. Absent: distended, tenderness - Extremities Exam Extremities exam: Present: warm, radial pulses palpable and symmetrical. Absent : calf tenderness, cyanotic, pedal edema - Neurological Exam Neurological exam: Present: CN II-XII intact, oriented X3, no focal deficits. Absent: pronater drift, facial droop, speech deficit - Skin Skin exam: Present: dry, intact Internal Medicine: Result - Labs CBC & Chem 7: 11/03/17 00:46 11/03/17 08:20 Labs: Short CBC 11/03/17 Range/Units 00:46 WBC 7.8 (4.3-11.1) K/mcL Hgb 14.0 (12.9-16.9) g/dL Hct 39.6 (37.5-50.1) % Plt Count 188 (140-400) K/mcL BMP 11/03/17 11/03/17 00:46 08:20 Sodium 130 L 133 L Potassium 3.5 3.4 L Chloride 98 103 Carbon Dioxide 23 22 L BUN 11 10 Creatinine 0.79 0.68 L Glucose 368 H 164 H Calcium 9.7 9.4 - ABG Interpretation ABG results: PT/INR, D-dimer PT 11.4 Seconds (9.4-12.1) 11/03/17 00:46 Consult Discharge Plan - Plan Referrals: Serjio Bateman MD [Partnered Physician] - 11/22/17 5:00 pm
[2017-11-03] MEDS: Levofloxacin 750 MG/150 ML 750 MG/150 ML BAG IVPB SCH (15:44)
[2017-11-04] MEDS: *HR* Heparin 5,000 UNIT/ML VIAL SQ SCH ×3 (05:32→21:10)
[2017-11-04] MEDS: Nystatin POWDER 30 GM BOTTLE TP SCH ×3 (08:19→21:16)
[2017-11-04] MEDS: Insulin LISPRO 300 UNITS/3 ML VIAL SQ SCH ×4 (08:19→21:10)
[2017-11-04] MEDS: Clotrimazole 1% CRM 15 GM TUBE TP SCH ×2 (08:19→21:15)
[2017-11-04] MEDS: Levofloxacin 750 MG/150 ML 750 MG/150 ML BAG IVPB SCH (09:18)
[2017-11-04 12:58] LABS: BUN/Creatinine Ratio 14 (6-26); Blood Urea Nitrogen 12 mg/dL (8-23); Calcium 9.1 mg/dL (8.6-10.3); Carbon Dioxide 22 mEq/L (23-29); Chloride 104 mEq/L (98-107); Glucose 352 mg/dL (70-105); Osmolality,Calculated 286 (280-300); Potassium 4.3 mEq/L (3.5-5.1); Sodium 131 mEq/L (136-145); eGFR For Non-African Americans > 60 (> 60)
--- NOTE | 2017-11-04 17:30 | Internal Med Progress Note ---
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 Admitted with urinary tract infection. UA revealed turbid appearance, large blood, moderate leukocyte estrase, negative nitrites. Urine culture remains pending. Continue treating with Levaquin., Continue IV fluid. Afebrile overnight, hemodynamically stable. No leukocytosis with WBC 7.8 11/04- clinically, continuing to imprve. Continue levaquin. Remains afebrile. am labs Qualifiers: Urinary tract infection type: site unspecified Hematuria presence: with hematuria Qualified Code(s): N39.0 - Urinary tract infection, site not specified; R31.9 - Hematuria, unspecified (2) HTN (hypertension) Current Visit: No Status: Chronic Assessment and plan: 11/03-BP remains stable, Continue home meds 11/04 BP remains stable. continue anti-HTN meds Qualifiers: Hypertension type: essential hypertension Qualified Code(s): I10 - Essential (primary) hypertension (3) Uncontrolled type II diabetes mellitus Current Visit: Yes Status: Chronic Assessment and plan: HGB a1c level 11.7 on 06/04/17 Continue basal and SSI Continue accu-checks ACHS Continue close monitoring 11/03-poorly controlled type 2 diabetes. Hyperglycemia persists throughout this afternoon with fingerstick blood glucose of 2:15. Increase sliding scale to medium coverage, closely monitor and titrate as necessary 11/04-hemoglobin A1c 13.5. Poorly controlled type 2 diabetes due to medication noncompliance. Patient reports that he does not take his IV insulin. Presented with concerns for hyperglycemia without ketosis. Blood sugars improving with medium sliding scale insulin coverage but remain elevated. We will add basal insulin at this time. Have discussed lifestyle modifications, weight loss, dietary modifications as well as the need to continue with insulin injections. Consult to nutrition services and ict educator. 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 Asymptomatic. Daily labs (7) Peripheral artery disease Current Visit: Yes Status: Chronic Assessment and plan: Son is at bedside and reports patient's feet were blue yesterday and have now turned red. Patient has a history of PAD and has been evaluated by Dr. Harrison, vascular surgeon, in the past. NGUYEN ordered Continue home meds Recommend outpatient vascular surgery follow up 11/03- see above. Feet no longer blue, now pale and warm. Awaiting completion of NGUYEN 11/04-A BX completed--right NGUYEN is 1.39 and left NGUYEN 1.33--patient is within normal limits bilaterally (8) Diastolic CHF, chronic Current Visit: No Status: Chronic Assessment and plan: Not in acute exacerbation Echo 06/06/17 revealed LVEF 55-60%, mild LV diastolic dysfunction, mild aortic regurgitation, calcified aortic valve, no aortic stenosis, dilated aortic root and ascending aorta measuring 4.7cm, mild pulmonic regurgitation, no pulmonay HTN Continue home meds 11/03-not in acute exacerbation. See plan above 11/04-no signs or symptoms of fluid overload, weight discrepancy on chart unclear of baseline weight. 98.2 Today. Net negative fluid volume 1115 (9) History of CVA (cerebrovascular accident) without residual deficits Current Visit: No Status: Chronic Assessment and plan: Continue monitoring (10) Yeast infection of the skin Current Visit: Yes Status: Acute Assessment and plan: Patient reports filling up multiple depends diapers throughout the day due to drinking lots for fluids/ hyperglycemia. He has erythema in the groin region Will start Nystatin powder TID to groin Continue monson cath Encourage ambulation/ turn patient q2h PT/OT consulted 11/03-no appreciable changes overnight. Continue with nystatin powder. Monson catheter in place, continue. Frequent turning. 11/04-no appreciable improvement, continue nystatin powder (11) Urinary incontinence Current Visit: Yes Status: Chronic Assessment and plan: Monson catheter in place Qualifiers: Urinary Incontinence type: unspecified incontinence Qualified Code(s): R32 - Unspecified urinary incontinence (12) Tinea pedis of both feet Current Visit: Yes Status: Acute Assessment and plan: Patient with chronic onychomycosis presents with yeast infection of bilateral feet Start Lotrimin 1% BID to bilateral feet 11/04-continue Lotrimin (13) Obesity (BMI 30.0-34.9) Current Visit: Yes Status: Chronic Assessment and plan: Discussed Lifestyle modification (14) DVT prophylaxis Current Visit: Yes Status: Acute Assessment and plan: Continue Heparin subQ TID - Time Spent With Patient Total time spent is greater than 50% in coordination of care (as documented) at patient's floor/unit and/or counseling patient: less than 15 minutes - Subjective Interval history: Patient seen and examined at bedside today. Denies urinary symptoms are improving. Denies any other complaints or concerns at this time. - Constitutional Vitals: Temp Pulse Resp BP Pulse Ox 98.0 F 71 18 114/68 96 11/04/17 15:44 11/04/17 15:44 11/04/17 15:44 11/04/17 15:44 11/04/17 15:44 General appearance: Present: cooperative, A&O X 3, pleasant, obese, answers questions appropriately - Head Head exam: Present: atraumatic, normocephalic - Eye Eye exam: Present: PERRL, conjuntiva pink, sclera anicteric Pupils: Present: PERRL - Neck Neck exam general surgery: Present: supple, trachea midline. Absent: lymphadenopathy - Respiratory Respiratory exam: Present: CTAB. Absent: accessory muscle use, rales, rhonchi, wheezes - Cardiovascular Cardiovascular exam: Present: RRR, +S1, +S2. Absent: diastolic murmur, gallop, rubs, systolic murmur - GI/Abdominal GI/Abdominal exam: Present: normal bowel sounds, soft, no peritoneal signs. Absent: distended, tenderness - Extremities Exam Extremities exam: Present: warm, radial pulses palpable and symmetrical. Absent : calf tenderness, cyanotic, pedal edema - Neurological Exam Neurological exam: Present: CN II-XII intact, oriented X3, no focal deficits. Absent: pronater drift, facial droop, speech deficit - Skin Skin exam: Present: dry, intact Internal Medicine: Result - Labs CBC & Chem 7: 11/03/17 00:46 11/04/17 12:14 Labs: BMP 11/04/17 12:14 Sodium 131 L Potassium 4.3 Chloride 104 Carbon Dioxide 22 L BUN 12 Creatinine 0.86 Glucose 352 H Calcium 9.1 - ABG Interpretation ABG results: PT/INR, D-dimer PT 11.4 Seconds (9.4-12.1) 11/03/17 00:46 Consult Discharge Plan - Plan Referrals: Serjio Bateman MD [Partnered Physician] - 11/22/17 5:00 pm
[2017-11-04 18:56] LABS: Basophils % 0.3 %; Eosinophils # 0.1 K/mcL (0.0-0.6); Eosinophils % 2.1 %; Immature Granulocytes % 0.3 % (0-4); Lymphocytes # 1.8 K/mcL (0.6-4.6); Lymphocytes % 31.1 %; Mean Corpuscular Hemoglobin 30.5 pg (28.0-33.3); Mean Corpuscular Volume 87.1 fL (83.0-100.0); Mean Platelet Volume 11.5 fL (9.4-12.4); Monocytes # 0.4 K/mcL (0.0-1.3); Monocytes % 6.6 %; Neutrophils # 3.4 K/mcL (1.6-8.9); Platelet Count 165 K/mcL (140-400); Red Blood Count 4.59 M/mcL (4.19-5.50); Red Cell Distribution Width 12.8 % (11.5-14.5); Segmented Neutrophils % 59.6 %
[2017-11-04] MEDS: rOPINIRole 0.25 MG TABLET PO SCH (21:11)
[2017-11-04] MEDS: Insulin DETEMIR 100 UNIT/ML X5UNITS SQ SCH (21:11)
[2017-11-05 05:17] LABS: Basophils % 0.8 %; Eosinophils # 0.1 K/mcL (0.0-0.6); Eosinophils % 1.5 %; Hematocrit 37.2 % (37.5-50.1); Hemoglobin 12.9 g/dL (12.9-16.9); Immature Granulocytes % 0.6 % (0-4); Lymphocytes # 1.9 K/mcL (0.6-4.6); Lymphocytes % 36.2 %; Mean Corpuscular HGB Conc 34.7 g/dL (31.6-35.5); Mean Corpuscular Hemoglobin 29.9 pg (28.0-33.3); Mean Corpuscular Volume 86.3 fL (83.0-100.0); Mean Platelet Volume 11.6 fL (9.4-12.4); Monocytes # 0.4 K/mcL (0.0-1.3); Neutrophils # 2.8 K/mcL (1.6-8.9); Platelet Count 149 K/mcL (140-400); Red Blood Count 4.31 M/mcL (4.19-5.50); Red Cell Distribution Width 12.8 % (11.5-14.5); Segmented Neutrophils % 52.9 %
[2017-11-05] MEDS: *HR* Heparin 5,000 UNIT/ML VIAL SQ SCH ×3 (05:18→20:20)
[2017-11-05 05:34] LABS: BUN/Creatinine Ratio 22 (6-26); Blood Urea Nitrogen 14 mg/dL (8-23); Calcium 9.3 mg/dL (8.6-10.3); Carbon Dioxide 20 mEq/L (23-29); Chloride 104 mEq/L (98-107); Glucose 307 mg/dL (70-105); Osmolality,Calculated 286 (280-300); Potassium 3.8 mEq/L (3.5-5.1); Sodium 132 mEq/L (136-145); eGFR For Non-African Americans > 60 (> 60)
[2017-11-05] MEDS: Insulin DETEMIR 100 UNIT/ML X5UNITS SQ SCH ×2 (08:17→20:20)
[2017-11-05] MEDS: Insulin LISPRO 300 UNITS/3 ML VIAL SQ SCH ×3 (08:18→16:22)
[2017-11-05] MEDS: Clotrimazole 1% CRM 15 GM TUBE TP SCH ×2 (08:18→20:20)
[2017-11-05] MEDS: Nystatin POWDER 30 GM BOTTLE TP SCH ×3 (08:18→20:21)
[2017-11-05] MEDS ORDERED: Levofloxacin 250 MG/50 ML 250 MG/50 ML BAG IVPB SCH (09:00)
[2017-11-05] MEDS ORDERED: Sulfamethoxazole/Trimeth DS 1 EACH TABLET PO SCH (15:00)
--- NOTE | 2017-11-05 17:34 | Internal Med Progress Note ---
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 Admitted with urinary tract infection. UA revealed turbid appearance, large blood, moderate leukocyte estrase, negative nitrites. Urine culture remains pending. Continue treating with Levaquin., Continue IV fluid. Afebrile overnight, hemodynamically stable. No leukocytosis with WBC 7.8 11/04- clinically, continuing to imprve. Continue levaquin. Remains afebrile. am labs 11/05- urine growing GNR. Continue levaquin. Qualifiers: Urinary tract infection type: site unspecified Hematuria presence: with hematuria Qualified Code(s): N39.0 - Urinary tract infection, site not specified; R31.9 - Hematuria, unspecified (2) HTN (hypertension) Current Visit: No Status: Chronic Assessment and plan: 11/03-BP remains stable, Continue home meds 11/04 BP remains stable. continue anti-HTN meds 11/05- remains stable, continue current med regimen Qualifiers: Hypertension type: essential hypertension Qualified Code(s): I10 - Essential (primary) hypertension (3) Uncontrolled type II diabetes mellitus Current Visit: Yes Status: Chronic Assessment and plan: HGB a1c level 11.7 on 06/04/17 Continue basal and SSI Continue accu-checks ACHS Continue close monitoring 11/03-poorly controlled type 2 diabetes. Hyperglycemia persists throughout this afternoon with fingerstick blood glucose of 2:15. Increase sliding scale to medium coverage, closely monitor and titrate as necessary 11/04-hemoglobin A1c 13.5. Poorly controlled type 2 diabetes due to medication noncompliance. Patient reports that he does not take his IV insulin. Presented with concerns for hyperglycemia without ketosis. Blood sugars improving with medium sliding scale insulin coverage but remain elevated. We will add basal insulin at this time. Have discussed lifestyle modifications, weight loss, dietary modifications as well as the need to continue with insulin injections. Consult to nutrition services and prosthodontist/educator. 11/05-hyperglycemia persists--DM poorly controlled with home meds of glargine, amaryl and metformin. Will need SC insulin with a sliding scale and lantus at d /c. nurse navigator has found lantus for $110.00 monthly for 3 vials and the patient and family state " that is affordable". However, I have reservation regarding insulin use as the patient admits to non-compliance and frequently does not perform injections because he "doesn't feel like it". Increased SSIC to high coverage and increased basal insulin. Closely monitor see further planning above Qualifiers: Diabetes mellitus fdc insulin use: unspecified fdc insulin use status Diabetes mellitus complication status: with hyperglycemia Qualified Code(s): E11.65 - Type 2 diabetes mellitus with hyperglycemia (4) HLD (hyperlipidemia) Current Visit: No Status: Chronic Assessment and plan: Continue Lipitor Qualifiers: Hyperlipidemia type: unspecified Qualified Code(s): E78.5 - Hyperlipidemia , unspecified (5) Hyperglycemia without ketosis Current Visit: Yes Status: Acute Assessment and plan: See above (6) Hyponatremia Current Visit: Yes Status: Acute Assessment and plan: Hyponatremia persists, serum sodium 132. Asymptomatic. Daily labs (7) Peripheral artery disease Current Visit: Yes Status: Chronic Assessment and plan: Son is at bedside and reports patient's feet were blue yesterday and have now turned red. Patient has a history of PAD and has been evaluated by Dr. Harrison, vascular surgeon, in the past. NGUYEN ordered Continue home meds Recommend outpatient vascular surgery follow up 11/03- see above. Feet no longer blue, now pale and warm. Awaiting completion of NGUYEN 11/04-A BX completed--right NGUYEN is 1.39 and left NGUYEN 1.33--patient is within normal limits bilaterally (8) Diastolic CHF, chronic Current Visit: No Status: Chronic Assessment and plan: Not in acute exacerbation Echo 06/06/17 revealed LVEF 55-60%, mild LV diastolic dysfunction, mild aortic regurgitation, calcified aortic valve, no aortic stenosis, dilated aortic root and ascending aorta measuring 4.7cm, mild pulmonic regurgitation, no pulmonay HTN Continue home meds 11/03-not in acute exacerbation. See plan above 11/04-no signs or symptoms of fluid overload, weight discrepancy on chart unclear of baseline weight. 98.2--corrected weight of 90.2 Today. Net negative fluid volume 1115 11/05- net negative volume status -2445, not in acute exacerbation, weight 91.1 today which is a 1kg increase from yesterdays corrected weight of 90.2 (9) History of CVA (cerebrovascular accident) without residual deficits Current Visit: No Status: Chronic Assessment and plan: Continue monitoring, no new neuro deficits (10) Yeast infection of the skin Current Visit: Yes Status: Acute Assessment and plan: Patient reports filling up multiple depends diapers throughout the day due to drinking lots for fluids/ hyperglycemia. He has erythema in the groin region Will start Nystatin powder TID to groin Continue monson cath Encourage ambulation/ turn patient q2h PT/OT consulted 11/03-no appreciable changes overnight. Continue with nystatin powder. Monson catheter in place, continue. Frequent turning. 11/04-no appreciable improvement, continue nystatin powder 11/05- clinically improving, continue to keep area dry, continue with monson an cont nystatin powder (11) Urinary incontinence Current Visit: Yes Status: Chronic Assessment and plan: Monson catheter in place, continue with chronic monson Qualifiers: Urinary Incontinence type: unspecified incontinence Qualified Code(s): R32 - Unspecified urinary incontinence (12) Tinea pedis of both feet Current Visit: Yes Status: Acute Assessment and plan: Patient with chronic onychomycosis presents with yeast infection of bilateral feet Start Lotrimin 1% BID to bilateral feet 11/04-continue Lotrimin, 11/05- tinea continuing to improve--cont with lotrimin (13) Obesity (BMI 30.0-34.9) Current Visit: Yes Status: Chronic Assessment and plan: Discussed Lifestyle modification, dietary intake, low-carb diabetic diet and strict insulin administration. Family at bedside and verbalizes understanding (14) DVT prophylaxis Current Visit: Yes Status: Acute Assessment and plan: Continue Heparin SC TID - Time Spent With Patient Total time spent is greater than 50% in coordination of care (as documented) at patient's floor/unit and/or counseling patient: 25 - 35 minutes - Subjective Interval history: Patient seen and examined at bedside today. Denies urinary symptoms. Discussed POC, patient agreeable. Denies any other complaints or concerns at this time. - Constitutional Vitals: Temp Pulse Resp BP Pulse Ox 98 F 64 16 101/61 94 11/05/17 15:42 11/05/17 15:42 11/05/17 15:42 11/05/17 15:42 11/05/17 15:42 General appearance: Present: cooperative, A&O X 3, pleasant, obese, answers questions appropriately - Head Head exam: Present: atraumatic, normocephalic - Eye Eye exam: Present: PERRL, conjuntiva pink, sclera anicteric Pupils: Present: PERRL - Neck Neck exam general surgery: Present: supple, trachea midline. Absent: lymphadenopathy - Respiratory Respiratory exam: Present: decreased breath sounds, CTAB. Absent: accessory muscle use, rales, rhonchi, wheezes - Cardiovascular Cardiovascular exam: Present: RRR, +S1, +S2. Absent: diastolic murmur, gallop, rubs, systolic murmur - GI/Abdominal GI/Abdominal exam: Present: normal bowel sounds, soft, no peritoneal signs. Absent: distended, tenderness - Extremities Exam Extremities exam: Present: normal capillary refill, normal inspection, warm, radial pulses palpable and symmetrical. Absent: calf tenderness, cyanotic, pedal edema, tenderness - Neurological Exam Neurological exam: Present: alert, CN II-XII intact, oriented X3, no focal deficits. Absent: pronater drift, facial droop, speech deficit - Skin Skin exam: Present: dry, intact Internal Medicine: Result - Labs CBC & Chem 7: 11/05/17 04:10 11/05/17 04:10 Labs: Short CBC 11/04/17 11/05/17 Range/Units 18:25 04:10 WBC 5.8 5.3 (4.3-11.1) K/mcL Hgb 14.0 12.9 (12.9-16.9) g/dL Hct 40.0 37.2 L (37.5-50.1) % Plt Count 165 149 (140-400) K/mcL Neutrophils # 3.4 2.8 (1.6-8.9) K/mcL BMP 11/05/17 04:10 Sodium 132 L Potassium 3.8 Chloride 104 Carbon Dioxide 20 L BUN 14 Creatinine 0.63 L Glucose 307 H Calcium 9.3 - ABG Interpretation ABG results: PT/INR, D-dimer PT 11.4 Seconds (9.4-12.1) 11/03/17 00:46 Consult Discharge Plan - Plan Referrals: Serjio Bateman MD [Partnered Physician] - 11/22/17 5:00 pm
[2017-11-05] MEDS: rOPINIRole 0.25 MG TABLET PO SCH (20:20)
[2017-11-06 04:40] LABS: Basophils % 0.5 %; Eosinophils # 0.1 K/mcL (0.0-0.6); Hematocrit 38.7 % (37.5-50.1); Hemoglobin 13.6 g/dL (12.9-16.9); Immature Granulocytes % 0.5 % (0-4); Lymphocytes # 2.2 K/mcL (0.6-4.6); Lymphocytes % 33.8 %; Mean Corpuscular HGB Conc 35.1 g/dL (31.6-35.5); Mean Corpuscular Hemoglobin 30.6 pg (28.0-33.3); Mean Platelet Volume 11.7 fL (9.4-12.4); Monocytes # 0.5 K/mcL (0.0-1.3); Monocytes % 7.9 %; Neutrophils # 3.6 K/mcL (1.6-8.9); Platelet Count 144 K/mcL (140-400); Red Blood Count 4.45 M/mcL (4.19-5.50); Red Cell Distribution Width 12.9 % (11.5-14.5); Segmented Neutrophils % 55.3 %
[2017-11-06 04:48] LABS: BUN/Creatinine Ratio 14 (6-26); Blood Urea Nitrogen 14 mg/dL (8-23); Calcium 9.3 mg/dL (8.6-10.3); Carbon Dioxide 22 mEq/L (23-29); Chloride 104 mEq/L (98-107); Glucose 234 mg/dL (70-105); Osmolality,Calculated 284 (280-300); Potassium 3.9 mEq/L (3.5-5.1); Sodium 133 mEq/L (136-145); eGFR For Non-African Americans > 60 (> 60)
[2017-11-06] MEDS: *HR* Heparin 5,000 UNIT/ML VIAL SQ SCH ×2 (05:03→15:44)
[2017-11-06] MEDS: Insulin LISPRO 300 UNITS/3 ML VIAL SQ SCH ×3 (08:17→13:31)
[2017-11-06] MEDS: Insulin DETEMIR 100 UNIT/ML X5UNITS SQ SCH (08:17)
[2017-11-06] MEDS: Nystatin POWDER 30 GM BOTTLE TP SCH ×2 (08:18→15:45)
[2017-11-06] MEDS: Clotrimazole 1% CRM 15 GM TUBE TP SCH (08:18)
[2017-11-06] MEDS ORDERED: levoFLOXacin 250 MG TABLET PO SCH (09:00)
--- NOTE | 2017-11-06 11:36 | Discharge Summary ---
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 No studies pending at time of discharge. Noted to have hyperglycemia with elevated hemoglobin A1c of 13.5 during this admission. Started on TIDAC insulin coverage 12 units with meal and 12 units BID basal insulin coverage. Blood glucose improving. Instructed to follow with PCP within one week of discharge. At this time please discuss appropriate insulin use. Patient is admitted to being noncompliant with insulin regimen in the past. Also, during admission found to have fungal infection in the groin and tinea pedis infection. Continue with Lotrimin and nystatin powder at discharge plan. Please reassess these areas had follow-up for further intervention. 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--urine cultures growing Escherichia coli--discharge on Bactrim DS 14 days Qualifiers: Urinary tract infection type: site unspecified Hematuria presence: with hematuria Qualified Code(s): N39.0 - Urinary tract infection, site not specified; R31.9 - Hematuria, unspecified (2) HTN (hypertension) Priority: Secondary Status: Chronic Qualifiers: Hypertension type: essential hypertension Qualified Code(s): I10 - Essential (primary) hypertension (3) Uncontrolled type II diabetes mellitus Priority: Secondary Status: Chronic Qualifiers: Diabetes mellitus terminal make up operator insulin use: unspecified half-way insulin use status Diabetes mellitus complication status: with hyperglycemia Qualified Code(s): E11.65 - Type 2 diabetes mellitus with hyperglycemia (4) HLD (hyperlipidemia) Priority: Secondary Status: Chronic Qualifiers: Hyperlipidemia type: unspecified Qualified Code(s): E78.5 - Hyperlipidemia , unspecified (5) Hyperglycemia without ketosis Priority: Secondary Status: Acute (6) Hyponatremia Priority: Secondary Status: Acute (7) Peripheral artery disease Priority: Secondary Status: Chronic (8) Diastolic CHF, chronic Priority: Secondary Status: Chronic (9) History of CVA (cerebrovascular accident) without residual deficits Priority: Secondary Status: Chronic (10) Yeast infection of the skin Priority: Secondary Status: Acute (11) Urinary incontinence Priority: Secondary Status: Chronic Qualifiers: Urinary Incontinence type: unspecified incontinence Qualified Code(s): R32 - Unspecified urinary incontinence (12) Tinea pedis of both feet Priority: Secondary Status: Acute (13) Obesity (BMI 30.0-34.9) Priority: Secondary Status: Chronic (14) DVT prophylaxis Priority: Secondary Status: Acute Hospital course: Mr. Khanna is a 72 year old male admitted with hyperglycemia and UTI. UTI--Chronic indwelling Chang catheter, patient likely colonized--urine cultures growing Escherichia coli--discharge on Bactrim DS 14 days. No studies pending at time of discharge. Noted to have hyperglycemia with elevated hemoglobin A1c of 13.5 during this admission. Started on TIDAC insulin coverage 12 units with meal and 12 units BID basal insulin coverage. Blood glucose improving. Instructed to follow with PCP within one week of discharge. At this time please discuss appropriate insulin use. Patient is admitted to being noncompliant with insulin regimen in the past. Also, during admission found to have fungal infection in the groin and tinea pedis infection. Continue with Lotrimin and nystatin powder at discharge plan. Please reassess these areas had follow-up for further intervention. Discharge discussed with: patient, family, nurse - Time Spent with Patient Total time spent providing and/or coordinating discharge services: Less than 30 minutes - Discharge Medications Prescriptions: Clotrimazole 1% CRM [Lotrimin 1%] 1 appl TP BID 14 Days #1 tube Insulin DETEMIR [Levemir] 12 unit SQ BID 30 Days #3 mls Insulin Human Regular [HumuLIN R] 12 unit SQ TIDAC 30 Days #1 vial Nystatin POWDER [Nystop] 1 appl TP TID 30 Days #1 bottle Sulfamethoxazole/Trimeth DS [Bactrim DS] 1 each PO BID 13 Days #26 tablet Home Medications: Atorvastatin [Lipitor] 40 mg PO HS 10/04/17 [History] Carvedilol [Coreg] 6.25 mg PO BIDWM 10/04/17 [History] Escitalopram [Lexapro] 10 mg PO DAILY 10/04/17 [History] Esomeprazole Magnesium [Nexium] 40 mg PO DAILY 10/04/17 [History] Furosemide [Lasix] 40 mg PO DAILY 10/04/17 [History] HYDROcodone/Acet 7.5/325 mg [[place] 7.5-325 mg] 1 tab PO Q6H PRN 10/04/17 [ History] Losartan Potassium [Cozaar] 100 mg PO DAILY 10/04/17 [History] Potassium Chloride [Klor-Con 10] 10 meq PO DAILY 10/04/17 [History] rOPINIRole [Requip] 0.25 mg PO HS 10/04/17 [History] Nitroglycerin 0.4 mg SL Q5MIN PRN 30 Days #28 tab.subl 10/06/17 [Rx] Clotrimazole 1% CRM [Lotrimin 1%] 1 appl TP BID 14 Days #1 tube 11/06/17 [Rx] Insulin DETEMIR [Levemir] 12 unit SQ BID 30 Days #3 mls 11/06/17 [Rx] Insulin Human Regular [HumuLIN R] 12 unit SQ TIDAC 30 Days #1 vial 11/06/17 [Rx ] Nystatin POWDER [Nystop] 1 appl TP TID 30 Days #1 bottle 11/06/17 [Rx] Sulfamethoxazole/Trimeth DS [Bactrim DS] 1 each PO BID 13 Days #26 tablet [Rx] Allergies/Adverse Reactions: 3 Allergy/AdvReac Type Severity Reaction Status Date / Time Penicillins [PCN] Allergy Hives Verified 10/04/17 22:31 shellfish derived Allergy Hives Verified 10/04/17 22:31 Date of admission: 11/02/17 22:50 Primary care physician: Atilio Torrez Consults: 11/02/17 23:42 Consult to Diabetes Education [CONS] Routine Comment: Reason for Consult: Poorly controlled DM 11/02/17 23:53 Consult to Occupational Therapy [CONS] Routine Comment: Evaluate, develop and implement POC Reason for Consult: weakness Does patient have active BEDREST order?: No Is patient medically & hemodynamically stable?: Yes Patient assessed for mobility or mobilized this visit?: No Consult to Physical Therapy [CONS] Routine Comment: Evaluate, develop and implement POC Reason for Consult: weakness Does patient have active BEDREST order?: No Is patient medically & hemodynamically stable?: Yes Patient assessed for mobility or mobilized this visit?: No 11/03/17 07:16 Consult to Nutrition [CONS] Routine Comment: Consulting Provider: NUTRITION Reason for Dietary Consult: Diet Education Other:: diabetes education Discharging clinician: Nilton Gonzalez Anticipated date of discharge: 11/06/17 - Constitutional Vitals: Temp Pulse Resp BP Pulse Ox 97.7 F 61 17 111/69 93 11/06/17 11:19 11/06/17 11:19 11/06/17 11:19 11/06/17 11:19 11/06/17 11:19 General appearance: Present: cooperative, A&O X 3, pleasant, obese, answers questions appropriately - Head Head exam: Present: atraumatic, normocephalic - Eye Eye exam: Present: PERRL, conjuntiva pink, sclera anicteric Pupils: Present: PERRL - Neck Neck exam general surgery: Present: supple, trachea midline. Absent: lymphadenopathy - Respiratory Respiratory exam: Present: CTAB. Absent: accessory muscle use, rales, rhonchi, wheezes - Cardiovascular Cardiovascular exam: Present: RRR, +S1, +S2. Absent: diastolic murmur, gallop, rubs, systolic murmur - GI/Abdominal GI/Abdominal exam: Present: normal bowel sounds, soft, no peritoneal signs. Absent: distended, tenderness - Extremities Exam Extremities exam: Present: warm, radial pulses palpable and symmetrical. Absent : calf tenderness, cyanotic, pedal edema - Neurological Exam Neurological exam: Present: CN II-XII intact, oriented X3, no focal deficits. Absent: pronater drift, facial droop, speech deficit - Skin Skin exam: Present: dry, intact - Patient Status Disposition: Home, Self-Care Condition: Good Functional capacity at discharge: independent ambulation Overall status at discharge: patient is progressing back to baseline - Discharge Instructions Instructions: Urinary Tract Infection in Men (DC), Diabetes Mellitus Type 2 in Adults (DC) Follow Up With: Serjio Bateman MD [Partnered Physician] - 11/22/17 5:00 pm - Diet and Activity Activity: increase activity as tolerated, resume usual activities as tolerated Diet: diabetic diet, low fat, low cholesterol
[2017-11-06 15:30] VITALS: BP 129/76
--- NOTE | 2017-11-06 18:07 | Physician Discharge Referral ---
Home Health/Hosp Referral Info Transfer to: Home Health Attending Provider: [facility] Provider in Charge Post Discharge: PCP - Diagnosis (1) UTI (urinary tract infection) Priority: Primary Status: Acute (2) HTN (hypertension) Priority: Secondary Status: Chronic (3) Uncontrolled type II diabetes mellitus Priority: Secondary Status: Chronic (4) HLD (hyperlipidemia) Priority: Secondary Status: Chronic (5) Hyperglycemia without ketosis Priority: Secondary Status: Acute (6) Hyponatremia Priority: Secondary Status: Acute (7) Peripheral artery disease Priority: Secondary Status: Chronic (8) Diastolic CHF, chronic Priority: Secondary Status: Chronic (9) History of CVA (cerebrovascular accident) without residual deficits Priority: Secondary Status: Chronic (10) Yeast infection of the skin Priority: Secondary Status: Acute (11) Urinary incontinence Priority: Secondary Status: Chronic (12) Tinea pedis of both feet Priority: Secondary Status: Acute (13) Obesity (BMI 30.0-34.9) Priority: Secondary Status: Chronic (14) DVT prophylaxis Priority: Secondary Status: Acute - Respiratory Orders Smoking Cessation: Smoking cessation has been advised. For more information, call the [place] Tobacco Quit Line at 9-625-UQWDNOW. - Diet/Nutrition Diet/Nutrition Orders: No Concentrated Sweets (strict diabetic diet) - Services Needed Following services are medically necessary services: Nursing, Home Health Aide - Transfer Medications Prescriptions: Clotrimazole 1% CRM [Lotrimin 1%] 1 appl TP BID 14 Days #1 tube Insulin DETEMIR [Levemir] 12 unit SQ BID 30 Days #3 mls Insulin Human Regular [HumuLIN R] 12 unit SQ TIDAC 30 Days #1 vial Nystatin POWDER [Nystop] 1 appl TP TID 30 Days #1 bottle Sulfamethoxazole/Trimeth DS [Bactrim DS] 1 each PO BID 13 Days #26 tablet Home Medications: Atorvastatin [Lipitor] 40 mg PO HS 10/04/17 [History] Carvedilol [Coreg] 6.25 mg PO BIDWM 10/04/17 [History] Escitalopram [Lexapro] 10 mg PO DAILY 10/04/17 [History] Esomeprazole Magnesium [Nexium] 40 mg PO DAILY 10/04/17 [History] Furosemide [Lasix] 40 mg PO DAILY 10/04/17 [History] HYDROcodone/Acet 7.5/325 mg [[place] 7.5-325 mg] 1 tab PO Q6H PRN 10/04/17 [ History] Losartan Potassium [Cozaar] 100 mg PO DAILY 10/04/17 [History] Potassium Chloride [Klor-Con 10] 10 meq PO DAILY 10/04/17 [History] rOPINIRole [Requip] 0.25 mg PO HS 10/04/17 [History] Nitroglycerin 0.4 mg SL Q5MIN PRN 30 Days #28 tab.subl 10/06/17 [Rx] Clotrimazole 1% CRM [Lotrimin 1%] 1 appl TP BID 14 Days #1 tube 11/06/17 [Rx] Insulin DETEMIR [Levemir] 12 unit SQ BID 30 Days #3 mls 11/06/17 [Rx] Insulin Human Regular [HumuLIN R] 12 unit SQ TIDAC 30 Days #1 vial 11/06/17 [Rx ] Nystatin POWDER [Nystop] 1 appl TP TID 30 Days #1 bottle 11/06/17 [Rx] Sulfamethoxazole/Trimeth DS [Bactrim DS] 1 each PO BID 13 Days #26 tablet [Rx] Allergies/Adverse Reactions: 3 Allergy/AdvReac Type Severity Reaction Status Date / Time Penicillins [PCN] Allergy Hives Verified 10/04/17 22:31 shellfish derived Allergy Hives Verified 10/04/17 22:31 Certification: Further, I certify that my clinical findings support that this patient is homebound (i.e. absences from home require considerable and taxing effort and are for medical reasons or episcopal services or infrequently or short duration when for other reasons) because: Homebound Reason: Patient requires assistance of a person or device to safely leave home Attestation: My signature below is to certify that this patient is under my care and that I, or nurse practitioner, or a physician's insurance account assistant working with me, has a face-to -face encounter with this patient.
--- NOTE | 2017-11-10 21:13 | Electrocardiograph Report ---
[place] [id number] Test Date: 2017-11-05 Pat Name: Pattie Khanna Department: 113 Room: 3B23 Gender: M Drier Take Off Tender: : 1945 Requested By: Kiko Olivia Order Number: [id number] Reading MD: Sharifa Toth Measurements Intervals [place] Rate: 57 P: 37 WA: 166 QRS: -38 QRSD: 158 T: 14 QT: 424 QTc: 419 Interpretive Statements SINUS BRADYCARDIA WITH RHYTHM IRREGULARITY, POSSIBLE NON-CONDUCTED PAC, SA BLOCK, AV BLOCK, OR SINUS PAUSE ARTIFAC LIMITS INTERPRETATION LEFT AXIS DEVIATION RIGHT BUNDLE BRANCH BLOCK Electronically Signed On 11-10-2017 17:33:43 EDT by Sharifa Toth
== END 2017-11-06 18:34 | disposition home or self-care (01) ==
LOC: EMEROO 16:49 → 3BNU 16:49
PROVIDERS: ADMIT Family Medicine; ATTEND Family Medicine

== ENCOUNTER 2018-07-17 17:33 | Inpatient (IN) ==
[2018-07-17] MEDS ORDERED: Sulfamethoxazole/Trimeth DS 1 EACH TABLET PO ONE (18:02)
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
[2018-07-17] MEDS ORDERED: Ondansetron 4 MG/2 ML VIAL IVP ONE ×2 (19:08→19:09)
[2018-07-17 19:27] LABS: Bilirubin,Urine Negative (Negative); Blood,Urine Large (Negative); Clarity,Urine Cloudy (Clear); Color,Urine Amber (Yellow); Glucose,Urine (UA) >=1000 mg/dL (Normal); Ketones,Urine Negative (Negative); Leukocyte Esterase,Urine Negative (Negative); Nitrite,Urine Negative (Negative); Protein,Urine 100 mg/dL (Neg-Trace); Specific Gravity,Urine > 1.030 (1.010-1.025); Urobilinogen,Urine Normal (Normal)
[2018-07-17 20:03] LABS: Basophils % 0.7 %; Eosinophils # 0.1 K/mcL (0.0-0.6); Hematocrit 43.6 % (37.5-50.1); Hemoglobin 15.3 g/dL (12.9-16.9); Immature Granulocytes % 0.2 % (0-4); Lymphocytes # 0.4 K/mcL (0.6-4.6); Mean Corpuscular HGB Conc 35.1 g/dL (31.6-35.5); Mean Corpuscular Hemoglobin 30.3 pg (28.0-33.3); Mean Corpuscular Volume 86.3 fL (83.0-100.0); Mean Platelet Volume 11.3 fL (9.4-12.4); Monocytes % 0.7 %; Neutrophils # 3.4 K/mcL (1.6-8.9); Platelet Count 167 K/mcL (140-400); Red Blood Count 5.05 M/mcL (4.19-5.50); Red Cell Distribution Width 12.8 % (11.5-14.5); Segmented Neutrophils % 84.4 %
--- NOTE | 2018-07-17 20:07 | Emergency Department Note ---
Disposition Clinical Impression: Indwelling Monson catheter present, Need for assistance with personal care, Hypernatremia, Hyperglycemia Hematuria Qualifiers: Hematuria type: gross Qualified Code(s): R31.0 - Gross hematuria Disposition: Admitted As Inpatient Condition: Good Referrals: Atilio Lang MD [Primary Care Provider] - Forms: ED Satisfaction Letter General Adult HPI - General Chief complaint: ED Urogenital-Male Stated complaint: Blood in monson Time Seen by Provider: 07/17/18 17:45 Source: patient Limitations: no limitations - History of Present Illness Pain Scale: 8 - Related Data Home Medications Medication Instructions Recorded Confirmed Atorvastatin [Lipitor] 40 mg PO HS 10/04/17 11/02/17 Carvedilol [Coreg] 6.25 mg PO BIDWM 10/04/17 11/02/17 Escitalopram [Lexapro] 10 mg PO DAILY 10/04/17 11/02/17 Esomeprazole Magnesium [Nexium] 40 mg PO DAILY 10/04/17 11/02/17 Furosemide [Lasix] 40 mg PO DAILY 10/04/17 11/02/17 HYDROcodone/Acet 7.5/325 mg [[place] 1 tab PO Q6H PRN 10/04/17 11/02/17 7.5-325 mg] Losartan Potassium [Cozaar] 100 mg PO DAILY 10/04/17 11/02/17 Potassium Chloride [Klor-Con 10] 10 meq PO DAILY 10/04/17 11/02/17 rOPINIRole [Requip] 0.25 mg PO HS 10/04/17 11/02/17 Previous Rx's Medication Instructions Recorded Nitroglycerin 0.4 mg SL Q5MIN PRN 30 Days #28 10/06/17 tab.subl Clotrimazole 1% CRM [Lotrimin 1%] 1 appl TP BID 14 Days #1 tube 11/06/17 Insulin DETEMIR [Levemir] 12 unit SQ BID 30 Days #3 mls 11/06/17 Insulin Human Regular [HumuLIN R] 12 unit SQ TIDAC 30 Days #1 vial 11/06/17 Nystatin POWDER [Nystop] 1 appl TP TID 30 Days #1 bottle 11/06/17 Sulfamethoxazole/Trimeth DS 1 each PO BID 13 Days #26 tablet 11/06/17 [Bactrim DS] Ondansetron ODT [Zofran ODT] 4 mg SL Q8HR PRN #7 tab.rapdis 12/13/17 cephALEXin [Keflex] 500 mg PO BID 5 Days #10 capsule 12/13/17 levoFLOXacin [Levaquin] 750 mg PO DAILY #5 tablet 07/05/18 Allergies Allergy/AdvReac Type Severity Reaction Status Date / Time Penicillins [PCN] Allergy Hives Verified 07/14/18 03:03 shellfish derived Allergy Hives Verified 07/14/18 03:03 Past Medical History - Past Medical History Medical history: Reports: cancer, CHF, CVA, diabetes, hyperlipidemia, hypertension, TIA Psychiatric history: Reports: depression - Social History Smoking Status: Former smoker Smokeless Tobacco Status: No Alcohol use: Reports: none Drug use: Reports: none Physical Exam - General Limitations: no limitations General appearance: alert, in no apparent distress Course - Consultations Consultation #1: upon re-evaluation of labs it appears that eufemia is hypernatremia to 161, likley secondary to dehydration and his volume status appears depleted. discussed case with Dr. reynolds (nephrology) who recommedsn D5 as 150ml/hr at this time and to check his sodum in one hour start starting it to make sure that it is actually going down. updated patient and family is agreeable to plan Time: 20:45 Consultation #2: discussed case with Dr. mabry and he has accepted paticon to medicine Time: 21:34 Vital Signs Temperature 98.2 F 07/17/18 17:37 Pulse Rate 108 07/17/18 17:37 Respiratory Rate 18 07/17/18 17:37 Blood Pressure 160/100 07/17/18 17:37 O2 Sat by Pulse Oximetry 97 07/17/18 17:37 Temperature 98.2 F 07/17/18 17:52 Pulse Rate 111 07/17/18 20:14 Respiratory Rate 18 07/17/18 20:14 Blood Pressure 142/75 07/17/18 20:14 O2 Sat by Pulse Oximetry 90 07/17/18 20:14 Oxygen Delivery Oxygen Delivery Nasal Cannula Medical Decision Making - Lab Data Result diagrams: 07/17/18 19:10 07/17/18 19:10 Lab Results 07/17/18 07/17/18 07/17/18 Range/Units 19:00 19:10 19:10 WBC 4.0 L (4.3-11.1) K/mcL RBC 5.05 (4.19-5.50) M/mcL Hgb 15.3 (12.9-16.9) g/dL Hct 43.6 (37.5-50.1) % MCV 86.3 (83.0-100.0) fL MCH 30.3 (28.0-33.3) pg MCHC 35.1 (31.6-35.5) g/dL RDW 12.8 (11.5-14.5) % Plt Count 167 (140-400) K/mcL MPV 11.3 (9.4-12.4) fL Immature Gran % 0.2 (0-4) % Seg Neutrophils % 84.4 % Lymphocytes % 11.0 % Monocytes % 0.7 % Eosinophils % 3.0 % Basophils % 0.7 % Neutrophils # 3.4 (1.6-8.9) K/mcL Lymphocytes # 0.4 L (0.6-4.6) K/mcL Monocytes # 0.0 (0.0-1.3) K/mcL Eosinophils # 0.1 (0.0-0.6) K/mcL Basophils # 0.0 (0.0-0.2) K/mcL VBG pH (7.32-7.42) pH Units VBG pCO2 (41-51) mmHg VBG pO2 (25-50) mmHg VBG HCO3 (21-27) mEq/L Sodium 161 H* (136-145) mEq/L Potassium 3.9 (3.5-5.1) mEq/L Chloride 79 L (98-107) mEq/L Carbon Dioxide 16 L (23-29) mEq/L BUN 14 (8-23) mg/dL Creatinine 0.73 (0.70-1.30) mg/dL Est GFR ( Amer) > 60 (> 60) Est GFR (Non-Af Amer) > 60 (> 60) BUN/Creatinine Ratio 19 (6-26) Glucose 428 H (70-105) mg/dL Calculated Osmolality 351 H (280-300) Lactic Acid (0.5-2.2) mmol/L Calcium 6.7 L (8.6-10.3) mg/dL Beta-Hydroxybutyric Acd (0.02-0.27) mmol/L Ur Specimen Adequacy Urine Color Lynette A (Yellow) Urine Clarity Cloudy A (Clear) Urine pH 5.0 (5.0-8.0) pH Units Ur Specific [place] > 1.030 H (1.010-1.025) Urine Protein 100 H (Neg-Trace) mg/dL Urine Glucose (UA) >=1000 H (Normal) mg/dL Urine Ketones Negative (Negative) mg/dL Urine Blood Large H (Negative) Urine Nitrite Negative (Negative) Urine Bilirubin Negative (Negative) Urine Urobilinogen Normal (Normal) mg/dL Ur Leukocyte Esterase Negative (Negative) Ur Culture Indicated? NO (NO) 07/17/18 07/17/18 07/17/18 Range/Units 20:42 20:42 20:52 WBC (4.3-11.1) K/mcL RBC (4.19-5.50) M/mcL Hgb (12.9-16.9) g/dL Hct (37.5-50.1) % MCV (83.0-100.0) fL MCH (28.0-33.3) pg MCHC (31.6-35.5) g/dL RDW (11.5-14.5) % Plt Count (140-400) K/mcL MPV (9.4-12.4) fL Immature Gran % (0-4) % Seg Neutrophils % % Lymphocytes % % Monocytes % % Eosinophils % % Basophils % % Neutrophils # (1.6-8.9) K/mcL Lymphocytes # (0.6-4.6) K/mcL Monocytes # (0.0-1.3) K/mcL Eosinophils # (0.0-0.6) K/mcL Basophils # (0.0-0.2) K/mcL VBG pH 7.43 H (7.32-7.42) pH Units VBG pCO2 30 L (41-51) mmHg VBG pO2 77 H (25-50) mmHg VBG HCO3 20 L (21-27) mEq/L Sodium (136-145) mEq/L Potassium (3.5-5.1) mEq/L Chloride (98-107) mEq/L Carbon Dioxide (23-29) mEq/L BUN (8-23) mg/dL Creatinine (0.70-1.30) mg/dL Est GFR ( Amer) (> 60) Est GFR (Non-Af Amer) (> 60) BUN/Creatinine Ratio (6-26) Glucose (70-105) mg/dL Calculated Osmolality (280-300) Lactic Acid 1.9 (0.5-2.2) mmol/L Calcium (8.6-10.3) mg/dL Beta-Hydroxybutyric Acd 1.30 H (0.02-0.27) mmol/L Ur Specimen Adequacy Urine Color (Yellow) Urine Clarity (Clear) Urine pH (5.0-8.0) pH Units Ur Specific [place] (1.010-1.025) Urine Protein (Neg-Trace) mg/dL Urine Glucose (UA) (Normal) mg/dL Urine Ketones (Negative) mg/dL Urine Blood (Negative) Urine Nitrite (Negative) Urine Bilirubin (Negative) Urine Urobilinogen (Normal) mg/dL Ur Leukocyte Esterase (Negative) Ur Culture Indicated? (NO) Attestation Statement - Attestation Attestation: I examined this patient and my medical decision-making was reviewed with the Resident Physician. I agree with the documented findings, disposition and treatment plan as described except to the extent set forth below. accepted sign out from Dr. Millan and Anabella. plan is to admit to the medicine service once labs have resolved. Hugh is agreeable to plan
[2018-07-17] MEDS ORDERED: 0.9 % Sodium Chloride 1,000 ML IVC ONE (20:11)
[2018-07-17 20:23] LABS: eGFR For Non-African Americans > 60 (> 60)
[2018-07-17] MEDS ORDERED: Insulin Human Regular 10 UNIT in 0.9 % Sodium Chloride 10 ML IV ONE (20:44)
[2018-07-17] MEDS ORDERED: Potassium Chloride 20 MEQ in D5% in Water 1,000 ML IVC SCH ×2 (20:45→23:06)
[2018-07-17] MEDS ORDERED: D5% in Water 1,000 ML IVC SCH (20:45)
[2018-07-17 20:56] LABS: VBG HCO3 20 mEq/L (21-27); VBG PCO2 30 mmHg (41-51); VBG PH 7.43 pH Units (7.32-7.42); VBG PO2 77 mmHg (25-50)
[2018-07-17 22:41] LABS: BUN/Creatinine Ratio 23 (6-26); Blood Urea Nitrogen 18 mg/dL (8-23); Calcium 9.4 mg/dL (8.6-10.3); Carbon Dioxide 17 mEq/L (23-29); Chloride 103 mEq/L (98-107); Glucose 510 mg/dL (70-105); Osmolality,Calculated 305 (280-300); Potassium 3.6 mEq/L (3.5-5.1); Sodium 135 mEq/L (136-145); eGFR For Non-African Americans > 60 (> 60)
[2018-07-17] MEDS ORDERED: *HR* Dextrose 50 % in Water (Syg) 50 ML SYRINGE IVP PRN (22:53)
[2018-07-17] MEDS ORDERED: Acetaminophen 325 MG TABLET PO PRN (22:53)
[2018-07-17] MEDS ORDERED: Ondansetron 4 MG/2 ML VIAL IVP PRN (22:53)
[2018-07-17] MEDS ORDERED: Naloxone 0.4 MG/ML INJ IVP PRN (22:53)
[2018-07-17] MEDS ORDERED: Insulin Human Regular 100 UNIT in 0.9 % Sodium Chloride 100 ML IVC SCH (23:00)
--- NOTE | 2018-07-17 23:11 | Internal Med History&Physical ---
Date of Encounter: 07/17/18 Time of Encounter: 22:15 Internal Medicine - H&P: HPI Chief complaint: hematuria Admitted From: Emergency Dept Plans for Post Hospital Care: Home History of present illness: Mr. Khanna is a 72 year old male who presents with complaints of hematuria, weakness, and dehydration. He was found to have evidence of blood in the urine in his Chang bag. He was on antibiotics for recent UTI as diagnosed by the ER a couple days ago. He was on antibiotics and then his urine turned bloody today, prompting his family to bring him back to the ER. Patient has a chronic indwelling Chang catheter due to incontinence. He was found to have blood in the Chang bag and urology was consulted. The Chang catheter was replaced, and he continues to have blood-tinged urine but no gross blood. On routine labs, he was noted to have a severe hypernatremia as well as uncontrolled diabetes. He also had ketones but his pH was normal. He does not meet criteria for DKA yet. He was started on IV fluids with D5 water per nephrology recommendations. Because of his severe hypernatremia, he is being admitted to 2N/ICU for ongoing care and close management. Upon my assessment of the patient in the ER, patient appears be dehydrated and borderline hypotensive. His MAP is currently 75, and his systolic blood pressures however is about 95-100. He denies any chest pain, shortness of breath, vomiting, diarrhea, cough, or shortness of breath. He has had bloody urine, which started today. Appetite and PO intake have been minimal. He has been on his diuretics as well despite the poor oral intake. His family has already left the ER and they have gone home. I discussed with him his CODE STATUS and he is full code. At this time, we will monitor sodium closely with frequent blood draws, and I will order blood cultures and urine cultures and treat him with empiric antibiotics for UTI with likely sepsis. His initial lactate is normal. We will trend his lactate and hemodynamic status. Although he does meet sepsis criteria, I am reluctant to proceed with fluid boluses per sepsis protocol given his profound hypernatremia. If he becomes hemodynamically unstable, we will proceed with supportive measures as necessary. Nephrology was contacted and consulted and recommended placing him on fluids with D5 water as noted above. Therefore, we will stay the course for now and trend his lactate as well as monitoring his serum chemistries. I discussed the plan of care with patient and he understands/agrees with the plan. Past Med Surg Social Fam HX - Past Medical History Attestation: Yes The following information was validated with the patient. Source: patient, old records reviewed Medical history: cancer, CHF, CVA, diabetes, hyperlipidemia, hypertension, TIA Additional medical history: breast CA Psychiatric history: depression - Past Surgical History Additional surgical history: right breast removed in 2001, breast cancer. right foot surgery and left hand surgery - Social History Smoking Status: Former smoker Smokeless Tobacco Status: No Alcohol use: none Drug use: none Current living situation: Home, With Family Recent Out of Country Travel Within the Last 8 Weeks: No - Family History Father Living Status: Hx Family Cancer: Yes Hx Family Endocrine Disorder: Yes Mother Adopted: No Family Member Ethnicity: Non- Living Status: Hx Family Cardiac Disorders: No Hx Family Respiratory Disorders: No Hx Family Cancer: Yes Hx Family GI Disorders: No Hx Family Endocrine Disorder: No Hx Family Neuromuscular Disorders: No Hx Family Neurologic Disorders: No Hx Family HEENT Disorders: No Hx Family Autoimmune Disorders: No Internal Medicine - H&P: Meds Atorvastatin [Lipitor] 40 mg PO HS 10/04/17 [History] Carvedilol [Coreg] 6.25 mg PO BIDWM 10/04/17 [History] Escitalopram [Lexapro] 10 mg PO DAILY 10/04/17 [History] Esomeprazole Magnesium [Nexium] 40 mg PO DAILY 10/04/17 [History] Furosemide [Lasix] 40 mg PO DAILY 10/04/17 [History] HYDROcodone/Acet 7.5/325 mg [[place] 7.5-325 mg] 1 tab PO Q6H PRN 10/04/17 [History] Losartan Potassium [Cozaar] 100 mg PO DAILY 10/04/17 [History] Potassium Chloride [Klor-Con 10] 10 meq PO DAILY 10/04/17 [History] rOPINIRole [Requip] 0.25 mg PO HS 10/04/17 [History] Nitroglycerin 0.4 mg SL Q5MIN PRN 30 Days #28 tab.subl 10/06/17 [Rx] Clotrimazole 1% CRM [Lotrimin 1%] 1 appl TP BID 14 Days #1 tube 11/06/17 [Rx] Insulin DETEMIR [Levemir] 12 unit SQ BID 30 Days #3 mls 11/06/17 [Rx] Insulin Human Regular [HumuLIN R] 12 unit SQ TIDAC 30 Days #1 vial 11/06/17 [Rx] Nystatin POWDER [Nystop] 1 appl TP TID 30 Days #1 bottle 11/06/17 [Rx] Sulfamethoxazole/Trimeth DS [Bactrim DS] 1 each PO BID 13 Days #26 tablet 11/06/17 [Rx] Ondansetron ODT [Zofran ODT] 4 mg SL Q8HR PRN #7 tab.rapdis 12/13/17 [Rx] cephALEXin [Keflex] 500 mg PO BID 5 Days #10 capsule 12/13/17 [Rx] levoFLOXacin [Levaquin] 750 mg PO DAILY #5 tablet 07/05/18 [Rx] Allergy/AdvReac Type Severity Reaction Status Date / Time Penicillins [PCN] Allergy Hives Verified 07/14/18 03:03 shellfish derived Allergy Hives Verified 07/14/18 03:03 - Constitutional Constitutional: fatigue, weakness, no chills, no fever(s), no night sweats - EENT Eyes: no blurry vision, no change in vision Ears: no ear pain, no tinnitus Nose, mouth and throat: no nasal congestion, no sinus pressure, no sore throat - Cardiovascular Cardiovascular ROS IM: no chest pain, no dyspnea, no dyspnea on exertion, no orthopnea, no paroxysmal nocturnal dyspnea - Respiratory Respiratory: no cough, no hemoptysis, no chest congestion, no excessive phlegm production, no change in phlegm color - Gastrointestinal Gastrointestinal: no abdominal pain, no diarrhea, no hematemesis, no hemat ochezia, no melena, no vomiting - Genitourinary Genitourinary ROS male: dysuria, hematuria, no flank pain - Musculoskeletal Musculoskeletal ROS IM: no arthralgias, no back pain - Integumentary Integumentary IM: no rash, no jaundice - Neurological Neurological ROS: no convulsions, no dizziness, no focal weakness, no frequent falls, no headache(s) - Psychiatric Psychiatric: no anxiety, no depression - Endocrine Endocrine IM: no cold intolerance, no heat intolerance, no polydipsia, no polyuria - Allergic/Immunologic Allergic/Immunologic: no GI upset with certain foods - Constitutional Vitals: Temp Pulse Resp BP Pulse Ox 98.2 F 112 18 108/68 94 07/17/18 17:52 07/17/18 22:13 07/17/18 23:03 07/17/18 23:03 07/17/18 22:13 General appearance: Present: cooperative, A&O X 3, pleasant, no acute distress, answers questions appropriately Exam: looks dry; otherwise no acute distress - Head Head exam: Present: atraumatic, normal inspection - Eye Eye exam: Present: EOMI, PERRL. Absent: scleral icterus Pupils: Present: normal accommodation - ENT ENT exam: Present: mucous membranes dry, normal exam, normal oropharynx - Neck Neck exam general surgery: Present: full ROM, supple, trachea midline. Absent: lymphadenopathy, tenderness, nuchal rigidity, thyromegaly - Respiratory Respiratory exam: Present: CTAB. Absent: chest wall tenderness, rales, rhonchi, wheezes - Cardiovascular Cardiovascular exam: Present: distant heart sounds, RRR, +S1, +S2. Absent: diastolic murmur, JVD, systolic murmur - GI/Abdominal GI/Abdominal exam: Present: normal bowel sounds, soft, tenderness (mild suprapubic), no peritoneal signs. Absent: guarding, hepatomegaly, mass, rebound, splenomegaly - Extremities Exam Extremities exam: Present: full ROM, normal capillary refill (cap refill 2-3 seconds), warm, radial pulses palpable and symmetrical. Absent: calf tenderness, mottling, pedal edema, tenderness - Back Exam Back exam: Present: normal inspection. Absent: CVA tenderness (L), CVA tenderness (R) - Neurological Exam Neurological exam: Present: alert, CN II-XII intact, oriented X3, no focal deficits, strengths equal and symetr throughout - Psychiatric Psychiatric exam: Present: normal affect, normal mood - Skin Skin exam: Present: dry, intact, warm. Absent: mottled, petechiae, rash Internal Med - H&P Results - Labs CBC & Chem 7: 07/17/18 19:10 07/17/18 21:37 Labs: Short CBC 07/17/18 Range/Units 19:10 WBC 4.0 L (4.3-11.1) K/mcL Hgb 15.3 (12.9-16.9) g/dL Hct 43.6 (37.5-50.1) % Plt Count 167 (140-400) K/mcL Neutrophils # 3.4 (1.6-8.9) K/mcL BMP 07/17/18 07/17/18 19:10 21:37 Sodium 161 H* 135 L D Potassium 3.9 3.6 Chloride 79 L 103 Carbon Dioxide 16 L 17 L BUN 14 18 Creatinine 0.73 0.78 Glucose 428 H 510 H* Calcium 6.7 L 9.4 Urine 07/17/18 Range/Units 19:00 Urine Color Lynette A (Yellow) Urine Clarity Cloudy A (Clear) Urine pH 5.0 (5.0-8.0) pH Units Ur Specific [place] > 1.030 H (1.010-1.025) Urine Protein 100 H (Neg-Trace) mg/dL Urine Glucose (UA) >=1000 H (Normal) mg/dL - ABG Interpretation ABG results: 07/17/18 20:52 VBG pH 7.43 H VBG pCO2 30 L VBG pO2 77 H VBG HCO3 20 L - Assessment and Plan (1) UTI (urinary tract infection) due to urinary indwelling Chang catheter Current Visit: Yes Status: Acute Assessment and plan: 1. Will order repeat urine culture and blood cultures. 2. Will treat with IV Rocephin. 3. I called and discussed with Dr. Bateman (urology) re: hematuria. As it is not grossly bloody, he recommends continuing IVF and antibiotics and withholding CBI for now. He will see patient in consultation in AM. Qualifiers: Indwelling urinary catheter type: indwelling urethral catheter Encounter type: initial encounter Qualified Code(s): T83.511A - Infection and inflammatory reaction due to indwelling urethral catheter, initial encounter; N39.0 - Urinary tract infection, site not specified (2) Uncontrolled diabetes mellitus Current Visit: Yes Status: Acute Assessment and plan: 1. Will place on insulin drip/tight glycemic control. 2. IVF as recommended by nephrology. 3. pH normal. He does not meet criteria for DKA. 4. Monitor glucose and serum chemistries closely. 5. Hourly glucose checks per insulin drip protocol. Qualifiers: Diabetes mellitus type: type 1 Glycemic state: with hyperglycemia Qualified Code(s): E10.65 - Type 1 diabetes mellitus with hyperglycemia (3) Sepsis Current Visit: Yes Status: Acute Assessment and plan: 1. Blood and urine cultures as above. 2. IV Rocephin for urine source of infection. 3. Trend lactate and monitor hemodynamics closely. Qualifiers: Sepsis type: Escherichia coli Qualified Code(s): A41.51 - Sepsis due to Escherichia coli [E. coli] (4) Hypernatremia Current Visit: Yes Status: Acute Assessment and plan: 1. Nephrology consulted. 2. Will monitor serial BMP's closely. 3. IVF per nephrology w D5W and 20 mEQ KCL/L at 150 ml/hour. (5) DVT prophylaxis Current Visit: Yes Status: Acute Assessment and plan: 1. EPCD's. 2. Avoid anti-coagulants in the setting of hematuria.
[2018-07-17 23:44] LABS: INR 1.2; Prothrombin Time 13.3 Seconds (9.4-12.1)
[2018-07-17 23:47] LABS: Activated Partial Thrombo Time 27.7 Seconds (26.0-36.0)
[2018-07-17 23:55] LABS: BUN/Creatinine Ratio 19 (6-26); Blood Urea Nitrogen 19 mg/dL (8-23); Calcium 9.3 mg/dL (8.6-10.3); Carbon Dioxide 17 mEq/L (23-29); Chloride 105 mEq/L (98-107); Glucose 441 mg/dL (70-105); Osmolality,Calculated 303 (280-300); Potassium 3.3 mEq/L (3.5-5.1); Sodium 136 mEq/L (136-145); eGFR For Non-African Americans > 60 (> 60)
[2018-07-17] MEDS: cefTRIAXone 2,000 MG in Water for inj. (sterile) 20 ML 20 ML IVP SCH (23:55)
[2018-07-18] MEDS ORDERED: 0.9 % Sodium Chloride 1,000 ML IVC ONE (00:34)
[2018-07-18] MEDS ORDERED: 0.9 % Sodium Chloride w KCl 20 MEQ/1,000 ML MLS IVC ONE (00:40)
[2018-07-18] MEDS: 0.9 % Sodium Chloride w KCl 20 MEQ/1,000 ML MLS IVC SCH ×3 (00:42→10:18)
--- NOTE | 2018-07-18 00:47 | Event Note ---
Date of Encounter: 07/18/18 Time of Encounter: 00:39 Notified by RN patient lactate is 4.0. I re-assessed patient, and he is asymptomatic but BP is now 70/50's w MAP 62. I reviewed chemistries and noted that sodium was 135 at 21:37 and 136 at 23:20 when I repeated BMP. I suspect lab error with initial lab at 19:10 and sodium level of 161. I called lab asked them to re-run the 19:10 lab specimen as I strongly suspect lab error. Meanwhile, I suspect patient has sepsis. I stopped his D5W MIV and ordered NS bolus, followed by MIV w 0.9 and 20 mEQ KCL/L. Patient already received 1 liter NS bolus in ER. Patient received Rocephin. Will trend lactate, hemodynamics, and serial chemistries. Suspected source of sepsis is urine. If necessary, will place CVC and start pressors after fluid boluses.
[2018-07-18 01:15] LABS: Sodium 135 mEq/L (136-145)
[2018-07-18 01:16] LABS: Chloride 100 mEq/L (98-107)
[2018-07-18 01:17] LABS: Blood Urea Nitrogen 16 mg/dL (8-23); Carbon Dioxide 23 mEq/L (23-29)
[2018-07-18 01:18] LABS: BUN/Creatinine Ratio 18 (6-26)
[2018-07-18 01:19] LABS: Glucose 478 mg/dL (70-105); Osmolality,Calculated 302 (280-300)
[2018-07-18 01:20] LABS: Calcium 9.7 mg/dL (8.6-10.3)
--- NOTE | 2018-07-18 01:27 | Event Note ---
Date of Encounter: 07/18/18 Time of Encounter: 01:25 Lab called me back and confirmed the 19:10 lab draw was a lab error/contaminated specimen. The corrected sodium level on that specimen was 135, not 161 as originally reported.
[2018-07-18 06:08] LABS: Hematocrit 36.3 % (37.5-50.1); Mean Corpuscular Hemoglobin 30.8 pg (28.0-33.3); Mean Corpuscular Volume 87.9 fL (83.0-100.0); Mean Platelet Volume 11.1 fL (9.4-12.4); Platelet Count 149 K/mcL (140-400); Red Blood Count 4.13 M/mcL (4.19-5.50); Red Cell Distribution Width 12.8 % (11.5-14.5)
[2018-07-18 06:15] LABS: Hemoglobin 12.7 g/dL (12.9-16.9)
[2018-07-18 06:29] LABS: Alanine Aminotransferase 16 Units/L (7-52); Albumin 3.3 g/dL (3.5-5.7); Albumin/Globulin Ratio 1.2 (1.1-2.2); Alkaline Phosphatase 76 Units/L (34-104); Aspartate Amino Transferase 15 Units/L (13-39); BUN/Creatinine Ratio 20 (6-26); Bilirubin,Total 0.5 mg/dL (0.3-1.0); Blood Urea Nitrogen 19 mg/dL (8-23); Calcium 8.7 mg/dL (8.6-10.3); Carbon Dioxide 21 mEq/L (23-29); Chloride 104 mEq/L (98-107); Globulin 2.8 g/dL (2.4-3.5); Glucose 173 mg/dL (70-105); Magnesium 1.3 mg/dL (1.6-2.6); Osmolality,Calculated 288 (280-300); Potassium 3.8 mEq/L (3.5-5.1); Sodium 136 mEq/L (136-145); Total Protein 6.1 g/dL (6.4-8.9); eGFR For Non-African Americans > 60 (> 60)
[2018-07-18 06:36] LABS: Lymphocytes # 0.6 K/mcL (0.6-4.6); Monocytes # 0.6 K/mcL (0.0-1.3); Neutrophils # 13.8 K/mcL (1.6-8.9); Platelet Estimate Normal (Normal)
--- NOTE | 2018-07-18 07:02 | Urology - Consult Note ---
Date of Encounter: 07/18/18 Time of Encounter: 07:00 - Assessment and Plan (1) Hematuria Current Visit: Yes Status: Acute Assessment and plan: Patient is on Rocephin which is the appropriate antibiotic. I recommend continuing this antibiotic while he is in the hospital and transitioning to Bactrim as an outpatient. It appears his urine is clearing with hydration and appropriate antibiotic. No need to switch to three-way catheter and CBI as there is no evidence of clot retention this morning. Qualifiers: Hematuria type: gross Qualified Code(s): R31.0 - Gross hematuria (2) Indwelling Chang catheter present Current Visit: Yes Status: Acute Assessment and plan: I recommended that the patient consider removing the catheter at discharge. The catheter is managing chronic incontinence but is likely beginning to cause complication complications such as UTI, gross hematuria and erosive hypospadias. Incidentally he continues to have incontinence around the catheter while at home which he manages with depends. He admits to only changing his depends every other day in the emergency room reports that the depends were matted to his skin on arrival to the emergency room. Consider evaluation by manager social work to verify that his home situation is safe and adequate We will continue to follow patient Urology CN:HPI Consult date: 07/18/18 Reason for consult Urology: Gross Hematuria History of present illness: Patient known to the urology service for refractory urge incontinence. Medicine, intravesical Botox and InterStim have not resolved the issue. He elected to manage with an indwelling catheter. Gross hematuria over the last week. No fever. Initial ER visit he was started on Levaquin but had resistant Escherichia coli. He was admitted because of gross hematuria, UTI, further evaluation. He reports no pain this morning. Past Med Surg Social Fam HX - Past Medical History Medical history: cancer, CHF, CVA, diabetes, hyperlipidemia, hypertension, TIA Additional medical history: breast CA Psychiatric history: depression - Past Surgical History Additional surgical history: right breast removed in 2001, breast cancer. right foot surgery and left hand surgery - Social History Smoking Status: Former smoker Smokeless Tobacco Status: No Alcohol use: none Drug use: none - Family History Father Living Status: Hx Family Cancer: Yes Hx Family Endocrine Disorder: Yes Mother Adopted: No Family Member Ethnicity: Non- Living Status: Hx Family Cardiac Disorders: No Hx Family Respiratory Disorders: No Hx Family Cancer: Yes Hx Family GI Disorders: No Hx Family Endocrine Disorder: No Hx Family Neuromuscular Disorders: No Hx Family Neurologic Disorders: No Hx Family HEENT Disorders: No Hx Family Autoimmune Disorders: No Medications and Allergies Atorvastatin [Lipitor] 40 mg PO HS 10/04/17 [History] Carvedilol [Coreg] 6.25 mg PO BIDWM 10/04/17 [History] Escitalopram [Lexapro] 10 mg PO DAILY 10/04/17 [History] Esomeprazole Magnesium [Nexium] 40 mg PO DAILY 10/04/17 [History] Furosemide [Lasix] 40 mg PO DAILY 10/04/17 [History] HYDROcodone/Acet 7.5/325 mg [[place] 7.5-325 mg] 1 tab PO Q6H PRN 10/04/17 [Hist ory] Losartan Potassium [Cozaar] 100 mg PO DAILY 10/04/17 [History] Potassium Chloride [Klor-Con 10] 10 meq PO DAILY 10/04/17 [History] rOPINIRole [Requip] 0.25 mg PO HS 10/04/17 [History] Nitroglycerin 0.4 mg SL Q5MIN PRN 30 Days #28 tab.subl 10/06/17 [Rx] Clotrimazole 1% CRM [Lotrimin 1%] 1 appl TP BID 14 Days #1 tube 11/06/17 [Rx] Insulin DETEMIR [Levemir] 12 unit SQ BID 30 Days #3 mls 11/06/17 [Rx] Insulin Human Regular [HumuLIN R] 12 unit SQ TIDAC 30 Days #1 vial 11/06/17 [Rx] Nystatin POWDER [Nystop] 1 appl TP TID 30 Days #1 bottle 11/06/17 [Rx] Sulfamethoxazole/Trimeth DS [Bactrim DS] 1 each PO BID 13 Days #26 tablet 11/06/17 [Rx] Ondansetron ODT [Zofran ODT] 4 mg SL Q8HR PRN #7 tab.rapdis 12/13/17 [Rx] cephALEXin [Keflex] 500 mg PO BID 5 Days #10 capsule 12/13/17 [Rx] levoFLOXacin [Levaquin] 750 mg PO DAILY #5 tablet 07/05/18 [Rx] Allergy/AdvReac Type Severity Reaction Status Date / Time Penicillins [PCN] Allergy Hives Verified 07/14/18 03:03 shellfish derived Allergy Hives Verified 07/14/18 03:03 Review of Systems - Constitutional weakness, no fever(s), no malaise - EENT Nose, mouth and throat: dry mouth, no dizziness - Cardiovascular no chest pain - Respiratory no cough - Gastrointestinal no abdominal pain, no nausea - Genitourinary hematuria, no flank pain - Musculoskeletal back pain - Integumentary no erythema - Neurological no confusion - Psychiatric no anxiety - Hematologic/Lymphatic no easy bleeding - Allergic/Immunologic no throat swelling Exam Initial Vital Signs Temp Pulse Resp BP Pulse Ox 98.2 F 108 18 160/100 97 07/17/18 17:37 07/17/18 17:37 07/17/18 17:37 07/17/18 17:37 07/17/18 17:37 - General physical appearance Present: no distress, chronically ill - Eyes Present: PERRL - ENT Present: normal nares, no congestion - Neck Present: no masses, no lymphadenopathy - Respiratory Present: normal respiratory effort - Abdomen Abdomen: Present: soft, suprapubic tenderness. Absent: distended - Integumentary Present: no rash, no growths - Neurologic Present: normal coordination. Absent: disoriented, confused - Additional Findings Chang catheter draining transparent but somewhat dusky urine. I irrigated with 120 mL of normal saline. The irrigated urine was clear with no clots. Incidentally the patient has erosive hypospadias from the chronic indwelling catheter. Urology Results - Labs 07/18/18 05:43 07/18/18 05:43 Abnormal lab results WBC 15.3 K/mcL (4.3-11.1) H D 07/18/18 05:43 RBC 4.13 M/mcL (4.19-5.50) L 07/18/18 05:43 Hgb 12.7 g/dL (12.9-16.9) L D 07/18/18 05:43 Hct 36.3 % (37.5-50.1) L 07/18/18 05:43 Band Neutrophils % 34.0 % (0-4) H 07/18/18 05:43 Metamyelocytes % 2.0 % (0) H 07/18/18 05:43 Neutrophils # 13.8 K/mcL (1.6-8.9) H 07/18/18 05:43 PT 13.3 Seconds (9.4-12.1) H 07/17/18 23:20 VBG pH 7.43 pH Units (7.32-7.42) H 07/17/18 20:52 VBG pCO2 30 mmHg (41-51) L 07/17/18 20:52 VBG pO2 77 mmHg (25-50) H 07/17/18 20:52 VBG HCO3 20 mEq/L (21-27) L 07/17/18 20:52 Carbon Dioxide 21 mEq/L (23-29) L 07/18/18 05:43 Glucose 173 mg/dL (70-105) H 07/18/18 05:43 POC Glucose 144 mg/dL (70-99) H 07/18/18 06:04 Lactic Acid 2.6 mmol/L (0.5-2.2) H 07/18/18 05:43 Magnesium 1.3 mg/dL (1.6-2.6) L 07/18/18 05:43 Serum Total Protein 6.1 g/dL (6.4-8.9) L 07/18/18 05:43 Albumin 3.3 g/dL (3.5-5.7) L 07/18/18 05:43 Beta-Hydroxybutyric Acd 1.30 mmol/L (0.02-0.27) H 07/17/18 20:42 Urine Color Lynette (Yellow) A 07/17/18 19:00 Urine Clarity Cloudy (Clear) A 07/17/18 19:00 Ur Specific [place] > 1.030 (1.010-1.025) H 07/17/18 19:00 Urine Protein 100 mg/dL (Neg-Trace) H 07/17/18 19:00 Urine Glucose (UA) >=1000 mg/dL (Normal) H 07/17/18 19:00 Urine Blood Large (Negative) H 07/17/18 19:00 Diabetes panel 07/17/18 07/17/18 07/17/18 Range/Units 19:10 21:37 23:20 Sodium 135 L 135 L 136 (136-145) mEq/L Potassium 4.0 3.6 3.3 L (3.5-5.1) mEq/L Chloride 100 103 105 (98-107) mEq/L Carbon Dioxide 23 17 L 17 L (23-29) mEq/L BUN 16 18 19 (8-23) mg/dL Creatinine 0.87 0.78 1.02 (0.70-1.30) mg/dL Glucose 478 H 510 H* 441 H (70-105) mg/dL Calcium 9.7 9.4 9.3 (8.6-10.3) mg/dL AST (13-39) Units/L ALT (7-52) Units/L Alkaline Phosphatase (34-104) Units/L Albumin (3.5-5.7) g/dL 07/18/18 Range/Units 05:43 Sodium 136 (136-145) mEq/L Potassium 3.8 (3.5-5.1) mEq/L Chloride 104 (98-107) mEq/L Carbon Dioxide 21 L (23-29) mEq/L BUN 19 (8-23) mg/dL Creatinine 0.97 (0.70-1.30) mg/dL Glucose 173 H (70-105) mg/dL Calcium 8.7 (8.6-10.3) mg/dL AST 15 (13-39) Units/L ALT 16 (7-52) Units/L Alkaline Phosphatase 76 (34-104) Units/L Albumin 3.3 L (3.5-5.7) g/dL Calcium panel 07/17/18 07/17/18 07/17/18 Range/Units 19:10 21:37 23:20 Calcium 9.7 9.4 9.3 (8.6-10.3) mg/dL Albumin (3.5-5.7) g/dL 07/18/18 Range/Units 05:43 Calcium 8.7 (8.6-10.3) mg/dL Albumin 3.3 L (3.5-5.7) g/dL Pituitary panel 07/17/18 07/17/18 07/17/18 Range/Units 19:10 21:37 23:20 Sodium 135 L 135 L 136 (136-145) mEq/L Potassium 4.0 3.6 3.3 L (3.5-5.1) mEq/L Chloride 100 103 105 (98-107) mEq/L Carbon Dioxide 23 17 L 17 L (23-29) mEq/L BUN 16 18 19 (8-23) mg/dL Creatinine 0.87 0.78 1.02 (0.70-1.30) mg/dL Glucose 478 H 510 H* 441 H (70-105) mg/dL Calcium 9.7 9.4 9.3 (8.6-10.3) mg/dL 07/18/18 Range/Units 05:43 Sodium 136 (136-145) mEq/L Potassium 3.8 (3.5-5.1) mEq/L Chloride 104 (98-107) mEq/L Carbon Dioxide 21 L (23-29) mEq/L BUN 19 (8-23) mg/dL Creatinine 0.97 (0.70-1.30) mg/dL Glucose 173 H (70-105) mg/dL Calcium 8.7 (8.6-10.3) mg/dL Adrenal panel 07/17/18 07/17/18 07/17/18 Range/Units 19:10 21:37 23:20 Sodium 135 L 135 L 136 (136-145) mEq/L Potassium 4.0 3.6 3.3 L (3.5-5.1) mEq/L Chloride 100 103 105 (98-107) mEq/L Carbon Dioxide 23 17 L 17 L (23-29) mEq/L BUN 16 18 19 (8-23) mg/dL Creatinine 0.87 0.78 1.02 (0.70-1.30) mg/dL Glucose 478 H 510 H* 441 H (70-105) mg/dL Calcium 9.7 9.4 9.3 (8.6-10.3) mg/dL Total Bilirubin (0.3-1.0) mg/dL AST (13-39) Units/L ALT (7-52) Units/L Alkaline Phosphatase (34-104) Units/L Albumin (3.5-5.7) g/dL 07/18/18 Range/Units 05:43 Sodium 136 (136-145) mEq/L Potassium 3.8 (3.5-5.1) mEq/L Chloride 104 (98-107) mEq/L Carbon Dioxide 21 L (23-29) mEq/L BUN 19 (8-23) mg/dL Creatinine 0.97 (0.70-1.30) mg/dL Glucose 173 H (70-105) mg/dL Calcium 8.7 (8.6-10.3) mg/dL Total Bilirubin 0.5 (0.3-1.0) mg/dL AST 15 (13-39) Units/L ALT 16 (7-52) Units/L Alkaline Phosphatase 76 (34-104) Units/L Albumin 3.3 L (3.5-5.7) g/dL All other labs normal. Consult Discharge Plan - Plan Referrals: Atilio Lang MD [Primary Care Provider] -
[2018-07-18] MEDS ORDERED: 0.9 % Sodium Chloride 500 ML IVC PRN (07:17)
[2018-07-18] MEDS: Nystatin Cream 15 GM TUBE TP SCH ×2 (08:19→22:09)
[2018-07-18] MEDS ORDERED: D5% in Water 1,000 ML IVC PRN (09:21)
[2018-07-18] MEDS ORDERED: Dextrose Gel 15 GM/37.5 ML TUBE PO PRN ×2 (09:21)
[2018-07-18] MEDS ORDERED: *HR* Dextrose 50 % in Water (Syg) 50 ML SYRINGE IVP PRN (09:21)
[2018-07-18] MEDS: Insulin DETEMIR 100 UNIT/ML X5UNITS SQ SCH (10:01)
--- NOTE | 2018-07-18 10:35 | Internal Med Progress Note ---
Hospitalist Progress Note - Encounter Date of Encounter: 07/18/18 Time of Encounter: 08:45 - Subjective Interval History: H&P reviewed. Patient with history of diabetes, hypertension, CVA, was admitted for sepsis and hematuria from UTI. Developed hypotension overnight and was transferred to ICU for close monitoring. Other than generalized weakness, denies any chest pain, shortness of breath, productive cough, or flank pain. No change in bowel habits. No fever/chills overnight. - Exam Vitals: Temp Pulse Resp BP Pulse Ox 98.3 F 68 18 86/54 92 07/18/18 07:42 07/18/18 10:00 07/18/18 10:00 07/18/18 10:00 07/18/18 10:00 Exam: General: Alert and oriented, not in acute distress. Cardiovascular:Normal S1 & S2, No JVD. Pulse regular. Lungs: clear to auscultation, no wheezes/rales Abdomen:Soft, non-tender, no rigidity. : No CVA tenderness, monson draining transparent urine Neurological:Normal cognition and motor skills. Non-focal - Assessment and Plan (1) Sepsis Current Visit: Yes Status: Acute Assessment and Plan: secondary to CAUTI, was treated for UTI from the ED when he presented on 07/14 with Bactrim band 34% this morning started on IV Rocephin, continue follow up on urine and blood cultures obtain US retroperitoneum lactate improving with IVF, continue and repeat lactic acid monitor hemodynamics closely in ICU today, may require CVC and pressors if refractory to IVF (2) UTI (urinary tract infection) due to urinary indwelling Monson catheter Current Visit: Yes Status: Acute Assessment and Plan: as above (3) Hematuria Current Visit: Yes Status: Acute Assessment and Plan: appreciate Urology input, no need for CBI consider removing monson at discharge continue abx as above (4) Uncontrolled diabetes mellitus Current Visit: Yes Status: Acute Assessment and Plan: initially presented with blood glucose > 400 and beta hydroxybutyrate acid of 1. 3 No acidosis noted, will transition to subcutaneous insulin resume basal insulin at reduced dose, cover with sliding scale (5) DVT prophylaxis Current Visit: Yes Status: Acute Assessment and Plan: EPCD in view of hematuria - Time Spent with Patient Total time spent is greater than 50% in coordination of care (as documented) at patient's floor/unit and/or counseling patient: 25 - 35 minutes Plan of Care Discussed with: patient Internal Medicine: Result - Labs CBC & Chem 7: 07/18/18 05:43 07/18/18 05:43 Labs: Short CBC 07/17/18 07/18/18 Range/Units 19:10 05:43 WBC 4.0 L 15.3 H D (4.3-11.1) K/mcL Hgb 15.3 12.7 L D (12.9-16.9) g/dL Hct 43.6 36.3 L (37.5-50.1) % Plt Count 167 149 (140-400) K/mcL Neutrophils # 3.4 13.8 H (1.6-8.9) K/mcL BMP 07/17/18 07/17/18 07/17/18 19:10 21:37 23:20 Sodium 135 L 135 L 136 Potassium 4.0 3.6 3.3 L Chloride 100 103 105 Carbon Dioxide 23 17 L 17 L BUN 16 18 19 Creatinine 0.87 0.78 1.02 Glucose 478 H 510 H* 441 H Calcium 9.7 9.4 9.3 07/18/18 05:43 Sodium 136 Potassium 3.8 Chloride 104 Carbon Dioxide 21 L BUN 19 Creatinine 0.97 Glucose 173 H Calcium 8.7 Liver Function 07/18/18 Range/Units 05:43 Total Bilirubin 0.5 (0.3-1.0) mg/dL AST 15 (13-39) Units/L ALT 16 (7-52) Units/L Alkaline Phosphatase 76 (34-104) Units/L Albumin 3.3 L (3.5-5.7) g/dL Urine 07/17/18 Range/Units 19:00 Urine Color Lynette A (Yellow) Urine Clarity Cloudy A (Clear) Urine pH 5.0 (5.0-8.0) pH Units Ur Specific [place] > 1.030 H (1.010-1.025) Urine Protein 100 H (Neg-Trace) mg/dL Urine Glucose (UA) >=1000 H (Normal) mg/dL - ABG Interpretation ABG results: PT/INR, D-dimer PT 13.3 Seconds (9.4-12.1) H 07/17/18 23:20 Consult Discharge Plan - Plan Referrals: Atilio Lang MD [Primary Care Provider] - (1) Sepsis Qualifiers: Sepsis type: Escherichia coli Qualified Code(s): A41.51 - Sepsis due to Escherichia coli [E. coli] (2) UTI (urinary tract infection) due to urinary indwelling Monson catheter Qualifiers: Indwelling urinary catheter type: indwelling urethral catheter Encounter type: initial encounter Qualified Code(s): T83.511A - Infection and inflamm atory reaction due to indwelling urethral catheter, initial encounter; N39.0 - Urinary tract infection, site not specified (3) Hematuria Qualifiers: Hematuria type: gross Qualified Code(s): R31.0 - Gross hematuria (4) Uncontrolled diabetes mellitus Qualifiers: Diabetes mellitus type: type 1 Glycemic state: with hyperglycemia Qualified Code(s): E10.65 - Type 1 diabetes mellitus with hyperglycemia
[2018-07-18] MEDS: Insulin LISPRO 300 UNITS/3 ML VIAL SQ SCH ×3 (11:47→21:58)
[2018-07-18] MEDS ORDERED: *HR* HYDROcodone/Acet 7.5/325 mg TABLET PO PRN (12:43)
[2018-07-18] MEDS ORDERED: Nitroglycerin 0.4 MG TAB.SUBL SL PRN (12:43)
[2018-07-18 12:47] LABS: Acinetobacter baumannii by PCR Not Detected (Not Detect); Enterobacter cloacae Cmplx PCR Not Detected (Not Detect); Enterobacteriaceae by PCR DETECTED (Not Detect); Enterococcus by PCR Not Detected (Not Detect); Escherichia coli by PCR DETECTED (Not Detect); Klebsiella oxytoca by PCR Not Detected (Not Detect); Staphylococcus aureus by PCR Not Detected (Not Detect); Staphylococcus by PCR Not Detected (Not Detect); Streptococcus agalactiae(B)PCR Not Detected (Not Detect); Streptococcus by PCR Not Detected (Not Detect); Streptococcus pneumoniae PCR Not Detected (Not Detect); Streptococcus pyogenes (A) PCR Not Detected (Not Detect); blaKPC Carbapenem-Resist Gene Not Detected (Not Detect)
[2018-07-18 12:48] LABS: Candida albicans by PCR Not Detected (Not Detect); Candida glabrata by PCR Not Detected (Not Detect); Candida krusei by PCR Not Detected (Not Detect); Candida parapsilosis by PCR Not Detected (Not Detect); Candida tropicalis by PCR Not Detected (Not Detect); Klebsiella pneumoniae by PCR Not Detected (Not Detect); Proteus by PCR Not Detected (Not Detect); Pseudomonas aeruginosa by PCR Not Detected (Not Detect); Serratia marcescens by PCR Not Detected (Not Detect)
[2018-07-18] MEDS: rOPINIRole 0.25 MG TABLET PO SCH (21:58)
[2018-07-18] MEDS: cefTRIAXone 2,000 MG in Water for inj. (sterile) 20 ML 20 ML IVP SCH (21:59)
[2018-07-19] MEDS ORDERED: *HR* HYDROcodone/Acet 7.5/325 mg TABLET PO PRN (07:41)
[2018-07-19] MEDS: Insulin DETEMIR 100 UNIT/ML X5UNITS SQ SCH (08:11)
[2018-07-19] MEDS: Insulin LISPRO 300 UNITS/3 ML VIAL SQ SCH ×7 (08:11→21:13)
[2018-07-19] MEDS: Nystatin Cream 15 GM TUBE TP SCH ×2 (08:12→22:16)
[2018-07-19 08:17] LABS: Basophils % 0.4 %; Eosinophils # 0.1 K/mcL (0.0-0.6); Eosinophils % 1.2 %; Hematocrit 37.2 % (37.5-50.1); Hemoglobin 12.9 g/dL (12.9-16.9); Immature Granulocytes % 0.6 % (0-4); Lymphocytes # 0.8 K/mcL (0.6-4.6); Lymphocytes % 11.1 %; Mean Corpuscular HGB Conc 34.7 g/dL (31.6-35.5); Mean Corpuscular Hemoglobin 30.9 pg (28.0-33.3); Mean Platelet Volume 11.6 fL (9.4-12.4); Monocytes # 0.4 K/mcL (0.0-1.3); Monocytes % 5.7 %; Platelet Count 114 K/mcL (140-400); Red Blood Count 4.18 M/mcL (4.19-5.50); Red Cell Distribution Width 12.6 % (11.5-14.5)
[2018-07-19 08:21] LABS: Neutrophils # 5.8 K/mcL (1.6-8.9)
[2018-07-19 08:38] LABS: Alanine Aminotransferase 12 Units/L (7-52); Albumin 3.3 g/dL (3.5-5.7); Albumin/Globulin Ratio 1.1 (1.1-2.2); Alkaline Phosphatase 79 Units/L (34-104); Aspartate Amino Transferase 14 Units/L (13-39); BUN/Creatinine Ratio 17 (6-26); Bilirubin,Total 0.7 mg/dL (0.3-1.0); Blood Urea Nitrogen 13 mg/dL (8-23); Calcium 8.8 mg/dL (8.6-10.3); Carbon Dioxide 22 mEq/L (23-29); Chloride 102 mEq/L (98-107); Globulin 2.9 g/dL (2.4-3.5); Glucose 318 mg/dL (70-105); Osmolality,Calculated 284 (280-300); Potassium 4.1 mEq/L (3.5-5.1); Sodium 131 mEq/L (136-145); Total Protein 6.2 g/dL (6.4-8.9); eGFR For Non-African Americans > 60 (> 60)
--- NOTE | 2018-07-19 10:22 | Internal Med Progress Note ---
Hospitalist Progress Note - Encounter Date of Encounter: 07/19/18 Time of Encounter: 07:45 - Subjective Interval History: No acute events overnight. Remained hemodynamically stable during the daytime yesterday and was transferred out of the ICU in the evening. Lactic acid also normalized. Denies any specific complaints including chest pain, shortness of breath, or flank pain. - Exam Vitals: Temp Pulse Resp BP Pulse Ox 99.8 F H 76 18 127/76 98 07/19/18 07:33 07/19/18 07:33 07/19/18 07:33 07/19/18 07:33 07/19/18 07:33 Exam: General: Alert and oriented, not in acute distress. Cardiovascular:Normal S1 & S2, No JVD. Pulse regular. Lungs: clear to auscultation, no wheezes/rales Abdomen:Soft, non-tender, no rigidity. : No CVA tenderness, monson draining transparent urine Neurological:Normal cognition and motor skills. Non-focal - Assessment and Plan (1) Sepsis Current Visit: Yes Status: Acute Assessment and Plan: secondary to CAUTI, was treated for UTI from the ED when he presented on 07/14 with Bactrim band 34% yesterday, US retroperitoneum showed non-specific perinephric fluid, likely to have pyelonephritis clinically improved with IV Rocephin, continue urine and blood cultures both growing GNR, follow up on final speciation and sensitivity lactate improved with IVF, will continue for today and stop tomorrow given the low normal BP (2) UTI (urinary tract infection) due to urinary indwelling Monson catheter Current Visit: Yes Status: Acute Assessment and Plan: as above (3) Hematuria Current Visit: Yes Status: Acute Assessment and Plan: likely due to CAUTI as above appreciate Urology input, no need for CBI would try to remove monson at discharge continue abx as above (4) Uncontrolled diabetes mellitus Current Visit: Yes Status: Acute Assessment and Plan: initially presented with blood glucose > 400 and beta hydroxybutyrate acid of 1.3 No acidosis noted, will transition to subcutaneous insulin. BG remains poorly controlled however add prandial lispro 7U TIDAC, increase basal insulin to 25U. Continue sliding scale (5) DVT prophylaxis Current Visit: Yes Status: Acute Assessment and Plan: EPCD in view of hematuria - Time Spent with Patient Total time spent is greater than 50% in coordination of care (as documented) at patient's floor/unit and/or counseling patient: 25 - 35 minutes Plan of Care Discussed with: patient Internal Medicine: Result - Labs CBC & Chem 7: 07/19/18 07:13 07/19/18 07:13 Labs: Short CBC 07/19/18 Range/Units 07:13 WBC 7.2 D (4.3-11.1) K/mcL Hgb 12.9 (12.9-16.9) g/dL Hct 37.2 L (37.5-50.1) % Plt Count 114 L (140-400) K/mcL Neutrophils # 5.8 (1.6-8.9) K/mcL BMP 07/19/18 07:13 Sodium 131 L Potassium 4.1 Chloride 102 Carbon Dioxide 22 L BUN 13 Creatinine 0.76 Glucose 318 H Calcium 8.8 Liver Function 07/19/18 Range/Units 07:13 Total Bilirubin 0.7 (0.3-1.0) mg/dL AST 14 (13-39) Units/L ALT 12 (7-52) Units/L Alkaline Phosphatase 79 (34-104) Units/L Albumin 3.3 L (3.5-5.7) g/dL - ABG Interpretation ABG results: PT/INR, D-dimer PT 13.3 Seconds (9.4-12.1) H 07/17/18 23:20 - Impressions Impressions Retroperitoneum Ultrasound 07/18/18 20:15 IMPRESSION: No evidence of hydronephrosis. Trace nonspecific bilateral perinephric fluid. This was likely present on a previous CT examination. However, given clinical history and concern for pyelonephritis, correlation with UA/urine culture is recommended. D/ / 07/18/2018 21:25:03 Hal Edwards MD / leo Interpreting Provider: Hal Edwards MD Consult Discharge Plan - Plan Referrals: Atilio Lang MD [Primary Care Provider] - (1) Sepsis Qualifiers: Sepsis type: Escherichia coli Qualified Code(s): A41.51 - Sepsis due to Escherichia coli [E. coli] (2) UTI (urinary tract infection) due to urinary indwelling Monson catheter Qualifiers: Indwelling urinary catheter type: indwelling urethral catheter Encounter type: initial encounter Qualified Code(s): T83.511A - Infection and inflammatory reaction due to indwelling urethral catheter, initial encounter; N39.0 - Urinary tract infection, site not specified (3) Hematuria Qualifiers: Hematuria type: gross Qualified Code(s): R31.0 - Gross hematuria (4) Uncontrolled diabetes mellitus Qualifiers: Diabetes mellitus type: type 1 Glycemic state: with hyperglycemia Qualified Code(s): E10.65 - Type 1 diabetes mellitus with hyperglycemia
[2018-07-19] MEDS ORDERED: Insulin DETEMIR 100 UNIT/ML X5UNITS SQ ONE (10:24)
--- NOTE | 2018-07-19 10:41 | Urology Progress Note ---
Date of Encounter: 07/19/18 Time of Encounter: 10:15 - Assessment and Plan (1) Hematuria Current Visit: Yes Status: Acute Assessment and plan: Patient is a 72-year-old male who presents with a history of gross hematuria. Hematuria is now resolved. There was some blood at urethral meatus. I irrigated patient's catheter at bedside, and no clots or sediment were returned. Patient's urine has remained clear. Qualifiers: Hematuria type: gross Qualified Code(s): R31.0 - Gross hematuria (2) Indwelling Chang catheter present Current Visit: Yes Status: Acute Assessment and plan: Patient is a 72-year-old male who presents with an indwelling Chang catheter for urinary incontinence. I discussed with the patient that he may have indwelling Chang catheter removed at discharge if he wishes. Patient is still wearing depends even with catheter in place. Patient is aware of complications with indwelling Chang including infection, hematuria and erosive hypospadias. On presentation to the emergency department, it was found that the depend was matted to the skin. Urology recommendations oncology social worker evaluation to ensure he is in a safe and healthy environment at home and that he is receiving adequate care. Recommend outpatient hospital follow-up with Dr. Bateman within 2 weeks of discharge. Progress Note Subjective: no new complaints Narrative: Patient seen and examined sitting upright in bed in no apparent distress. Chang catheter is indwelling and draining clear urine into bedside bag. Patient denies fever, chills, flank pain, or catheter discomfort. Objective Initial Vital Signs Temp Pulse Resp BP Pulse Ox 98.2 F 108 18 160/100 97 07/17/18 17:37 07/17/18 17:37 07/17/18 17:37 07/17/18 17:37 07/17/18 17:37 - General physical appearance Present: well developed, no distress, no pain - Respiratory Present: normal expansion, normal respiratory effort - Abdomen Present: soft, non tender - Genitourinary Urine Appearance: Present: Clear - Integumentary Present: no rash, no abnormal pigmentation - Musculoskeletal Present: normal posture - Psychiatric Present: oriented to time, oriented to person, oriented to place, speech is normal, memory intact - Labs 07/19/18 07:13 07/19/18 07:13 Diabetes panel 07/19/18 Range/Units 07:13 Sodium 131 L (136-145) mEq/L Potassium 4.1 (3.5-5.1) mEq/L Chloride 102 (98-107) mEq/L Carbon Dioxide 22 L (23-29) mEq/L BUN 13 (8-23) mg/dL Creatinine 0.76 (0.70-1.30) mg/dL Glucose 318 H (70-105) mg/dL Calcium 8.8 (8.6-10.3) mg/dL AST 14 (13-39) Units/L ALT 12 (7-52) Units/L Alkaline Phosphatase 79 (34-104) Units/L Albumin 3.3 L (3.5-5.7) g/dL Calcium panel 07/19/18 Range/Units 07:13 Calcium 8.8 (8.6-10.3) mg/dL Albumin 3.3 L (3.5-5.7) g/dL Pituitary panel 07/19/18 Range/Units 07:13 Sodium 131 L (136-145) mEq/L Potassium 4.1 (3.5-5.1) mEq/L Chloride 102 (98-107) mEq/L Carbon Dioxide 22 L (23-29) mEq/L BUN 13 (8-23) mg/dL Creatinine 0.76 (0.70-1.30) mg/dL Glucose 318 H (70-105) mg/dL Calcium 8.8 (8.6-10.3) mg/dL Adrenal panel 07/19/18 Range/Units 07:13 Sodium 131 L (136-145) mEq/L Potassium 4.1 (3.5-5.1) mEq/L Chloride 102 (98-107) mEq/L Carbon Dioxide 22 L (23-29) mEq/L BUN 13 (8-23) mg/dL Creatinine 0.76 (0.70-1.30) mg/dL Glucose 318 H (70-105) mg/dL Calcium 8.8 (8.6-10.3) mg/dL Total Bilirubin 0.7 (0.3-1.0) mg/dL AST 14 (13-39) Units/L ALT 12 (7-52) Units/L Alkaline Phosphatase 79 (34-104) Units/L Albumin 3.3 L (3.5-5.7) g/dL Procedures:Urology - Bladder Irrigation/Clot Evacuation Consent obtained: verbal consent Irrigation: other (sterile water ) Patient tolerated procedure: well, no complications Continuous Bladder Irrigation: No Complications: none Additional comments: Patient in dorsal lithotomy position. I examined patient and noticed dried blood at urethral meatus. Chang catheter indwelling and draining clear urine into bedside bag. I hand irrigated 240 mL's of sterile water through patient's catheter. Urine return was clear without sediment or clot. Patient tolerated the procedure well without complication. Consult Discharge Plan - Plan Referrals: Atilio Lang MD [Primary Care Provider] -
[2018-07-19] MEDS: 0.9 % Sodium Chloride 1,000 ML IVC SCH (12:10)
[2018-07-19] MEDS: rOPINIRole 0.25 MG TABLET PO SCH (21:14)
[2018-07-19] MEDS: cefTRIAXone 2,000 MG in Water for inj. (sterile) 20 ML 20 ML IVP SCH (21:14)
[2018-07-20] MEDS: 0.9 % Sodium Chloride 1,000 ML IVC SCH (01:41)
[2018-07-20 06:15] LABS: Basophils % 0.5 %; Eosinophils # 0.1 K/mcL (0.0-0.6); Eosinophils % 1.6 %; Hematocrit 34.1 % (37.5-50.1); Hemoglobin 11.9 g/dL (12.9-16.9); Immature Granulocytes % 0.2 % (0-4); Lymphocytes # 0.8 K/mcL (0.6-4.6); Lymphocytes % 13.7 %; Mean Corpuscular HGB Conc 34.9 g/dL (31.6-35.5); Mean Corpuscular Hemoglobin 30.3 pg (28.0-33.3); Mean Corpuscular Volume 86.8 fL (83.0-100.0); Mean Platelet Volume 11.5 fL (9.4-12.4); Monocytes # 0.4 K/mcL (0.0-1.3); Monocytes % 6.2 %; Neutrophils # 4.5 K/mcL (1.6-8.9); Platelet Count 105 K/mcL (140-400); Red Blood Count 3.93 M/mcL (4.19-5.50); Red Cell Distribution Width 12.7 % (11.5-14.5); Segmented Neutrophils % 77.8 %
[2018-07-20 06:31] LABS: BUN/Creatinine Ratio 17 (6-26); Blood Urea Nitrogen 13 mg/dL (8-23); Calcium 8.5 mg/dL (8.6-10.3); Carbon Dioxide 19 mEq/L (23-29); Chloride 102 mEq/L (98-107); Glucose 289 mg/dL (70-105); Magnesium 1.6 mg/dL (1.6-2.6); Osmolality,Calculated 285 (280-300); Potassium 3.9 mEq/L (3.5-5.1); Sodium 132 mEq/L (136-145); eGFR For Non-African Americans > 60 (> 60)
--- NOTE | 2018-07-20 07:25 | Urology Progress Note ---
Date of Encounter: 07/20/18 Time of Encounter: 07:22 - Assessment and Plan (1) Hematuria Current Visit: Yes Status: Resolved Qualifiers: Hematuria type: gross Qualified Code(s): R31.0 - Gross hematuria (2) Indwelling Chang catheter present Current Visit: Yes Status: Acute Assessment and plan: I again discussed management of the catheter with the patient. He is willing to have the catheter removed at discharge and manage the incontinence without the indwelling catheter as he is experiencing complications such as urinary tract infection, gross hematuria, erosive hypospadias. Keep catheter in place while he is actively being managed for UTI. Low-grade temperature overnight. Follow- up can be 4-6 weeks after discharge as long as the catheter is out. As mentioned in previous notes recommend continued evaluation by home health care social worker to verify appropriate discharge destination whether that be home or residential/rehabilitation facility. Progress Note Narrative: Patient seen and examined. States he is having some discomfort from the catheter but otherwise doing okay. He was unaware that he had a low-grade fever. Urine is clear Objective Initial Vital Signs Temp Pulse Resp BP Pulse Ox 98.2 F 108 18 160/100 97 07/17/18 17:37 07/17/18 17:37 07/17/18 17:37 07/17/18 17:37 07/17/18 17:37 - General physical appearance Present: no distress - Additional Exam Chang catheter with completely clear - Labs 07/20/18 05:03 07/20/18 05:03 Diabetes panel 07/19/18 07/20/18 Range/Units 07:13 05:03 Sodium 131 L 132 L (136-145) mEq/L Potassium 4.1 3.9 (3.5-5.1) mEq/L Chloride 102 102 (98-107) mEq/L Carbon Dioxide 22 L 19 L (23-29) mEq/L BUN 13 13 (8-23) mg/dL Creatinine 0.76 0.75 (0.70-1.30) mg/dL Glucose 318 H 289 H (70-105) mg/dL Calcium 8.8 8.5 L (8.6-10.3) mg/dL AST 14 (13-39) Units/L ALT 12 (7-52) Units/L Alkaline Phosphatase 79 (34-104) Units/L Albumin 3.3 L (3.5-5.7) g/dL Calcium panel 07/19/18 07/20/18 Range/Units 07:13 05:03 Calcium 8.8 8.5 L (8.6-10.3) mg/dL Albumin 3.3 L (3.5-5.7) g/dL Pituitary panel 07/19/18 07/20/18 Range/Units 07:13 05:03 Sodium 131 L 132 L (136-145) mEq/L Potassium 4.1 3.9 (3.5-5.1) mEq/L Chloride 102 102 (98-107) mEq/L Carbon Dioxide 22 L 19 L (23-29) mEq/L BUN 13 13 (8-23) mg/dL Creatinine 0.76 0.75 (0.70-1.30) mg/dL Glucose 318 H 289 H (70-105) mg/dL Calcium 8.8 8.5 L (8.6-10.3) mg/dL Adrenal panel 07/19/18 07/20/18 Range/Units 07:13 05:03 Sodium 131 L 132 L (136-145) mEq/L Potassium 4.1 3.9 (3.5-5.1) mEq/L Chloride 102 102 (98-107) mEq/L Carbon Dioxide 22 L 19 L (23-29) mEq/L BUN 13 13 (8-23) mg/dL Creatinine 0.76 0.75 (0.70-1.30) mg/dL Glucose 318 H 289 H (70-105) mg/dL Calcium 8.8 8.5 L (8.6-10.3) mg/dL Total Bilirubin 0.7 (0.3-1.0) mg/dL AST 14 (13-39) Units/L ALT 12 (7-52) Units/L Alkaline Phosphatase 79 (34-104) Units/L Albumin 3.3 L (3.5-5.7) g/dL Consult Discharge Plan - Plan Referrals: Atilio Lang MD [Primary Care Provider] -
[2018-07-20] MEDS: Insulin LISPRO 300 UNITS/3 ML VIAL SQ SCH ×7 (08:33→20:18)
[2018-07-20] MEDS: Insulin DETEMIR 100 UNIT/ML X5UNITS SQ SCH (08:37)
[2018-07-20] MEDS: Nystatin Cream 15 GM TUBE TP SCH ×2 (08:38→20:03)
--- NOTE | 2018-07-20 11:32 | Internal Med Progress Note ---
Hospitalist Progress Note - Encounter Date of Encounter: 07/20/18 Time of Encounter: 08:30 - Subjective Interval History: Noted that pt had temp of 100.3 at 7pm yesterday but reports that he is feeling great. No chest pain, cough, sputum production, flank pain, or N/V. - Exam Vitals: Temp Pulse Resp BP Pulse Ox 99.9 F H 74 16 164/95 92 07/20/18 07:09 07/20/18 07:09 07/20/18 07:09 07/20/18 07:09 07/20/18 07:09 Exam: General: Alert and oriented, not in acute distress. Cardiovascular:Normal S1 & S2, No JVD. Pulse regular. Lungs: clear to auscultation, no wheezes/rales Abdomen:Soft, non-tender, no rigidity. : No CVA tenderness, monson draining transparent urine Neurological:Normal cognition and motor skills. Non-focal - Assessment and Plan (1) Sepsis Current Visit: Yes Status: Acute Assessment and Plan: secondary to CAUTI, was treated for UTI from the ED when he presented on 07/14 with Bactrim lactate and BP improved with IVF, d/c today band 34% on 07/18, resolved US retroperitoneum showed non-specific perinephric fluid, likely to have pyelonephritis WBC normal x 2 on IV Rocephin, continue urine and blood cultures grew E. coli, sen to Rocephin given the pattern of his temp, will await for him to remain afebrile for at least 24 hours keep monson in while being treated for infection per Urology, appreciate rec (2) UTI (urinary tract infection) due to urinary indwelling Monson catheter Current Visit: Yes Status: Acute Assessment and Plan: as above (3) Hematuria Current Visit: Yes Status: Resolved Assessment and Plan: likely due to CAUTI as above appreciate Urology input, no need for CBI and keep monson until acute issues resolve continue abx as above (4) Uncontrolled diabetes mellitus Current Visit: Yes Status: Acute Assessment and Plan: initially presented with blood glucose > 400 and beta hydroxybutyrate acid of 1.3 No acidosis noted, will transition to subcutaneous insulin. BG remains poorly controlled however prandial lispro added yesterday, increase to 14U TIDAC. Continue basal insulin of 25U and sliding scale (5) DVT prophylaxis Current Visit: Yes Status: Acute Assessment and Plan: EPCD in view of hematuria - Time Spent with Patient Total time spent is greater than 50% in coordination of care (as documented) at patient's floor/unit and/or counseling patient: 25 - 35 minutes Plan of Care Discussed with: patient Internal Medicine: Result - Labs CBC & Chem 7: 07/20/18 05:03 07/20/18 05:03 Labs: Short CBC 07/20/18 Range/Units 05:03 WBC 5.8 (4.3-11.1) K/mcL Hgb 11.9 L (12.9-16.9) g/dL Hct 34.1 L (37.5-50.1) % Plt Count 105 L (140-400) K/mcL Neutrophils # 4.5 (1.6-8.9) K/mcL BMP 07/20/18 05:03 Sodium 132 L Potassium 3.9 Chloride 102 Carbon Dioxide 19 L BUN 13 Creatinine 0.75 Glucose 289 H Calcium 8.5 L - ABG Interpretation ABG results: PT/INR, D-dimer PT 13.3 Seconds (9.4-12.1) H 07/17/18 23:20 Consult Discharge Plan - Plan Referrals: Atilio Lang MD [Primary Care Provider] - (1) Sepsis Qualifiers: Sepsis type: Escherichia coli Qualified Code(s): A41.51 - Sepsis due to Escherichia coli [E. coli] (2) UTI (urinary tract infection) due to urinary indwelling Monson catheter Qualifiers: Indwelling urinary catheter type: indwelling urethral catheter Encounter type: initial encounter Qualified Code(s): T83.511A - Infection and inflammatory reaction due to indwelling urethral catheter, initial encounter; N39.0 - Urinary tract infection, site not specified (3) Hematuria Qualifiers: Hematuria type: gross Qualified Code(s): R31.0 - Gross hematuria (4) Uncontrolled diabetes mellitus Qualifiers: Diabetes mellitus type: type 1 Glycemic state: with hyperglycemia Qualified Code(s): E10.65 - Type 1 diabetes mellitus with hyperglycemia
[2018-07-20] MEDS: rOPINIRole 0.25 MG TABLET PO SCH (20:02)
[2018-07-20] MEDS: cefTRIAXone 2,000 MG in Water for inj. (sterile) 20 ML 20 ML IVP SCH (20:03)
[2018-07-21 05:03] LABS: Basophils % 0.5 %; Eosinophils # 0.1 K/mcL (0.0-0.6); Eosinophils % 1.4 %; Hematocrit 35.5 % (37.5-50.1); Hemoglobin 12.3 g/dL (12.9-16.9); Immature Granulocytes % 0.7 % (0-4); Lymphocytes # 0.9 K/mcL (0.6-4.6); Lymphocytes % 21.7 %; Mean Corpuscular HGB Conc 34.6 g/dL (31.6-35.5); Mean Corpuscular Hemoglobin 30.1 pg (28.0-33.3); Mean Platelet Volume 11.1 fL (9.4-12.4); Monocytes # 0.4 K/mcL (0.0-1.3); Monocytes % 9.6 %; Neutrophils # 2.8 K/mcL (1.6-8.9); Platelet Count 111 K/mcL (140-400); Red Blood Count 4.08 M/mcL (4.19-5.50); Red Cell Distribution Width 12.4 % (11.5-14.5); Segmented Neutrophils % 66.1 %
[2018-07-21 05:30] LABS: BUN/Creatinine Ratio 17 (6-26); Blood Urea Nitrogen 12 mg/dL (8-23); Calcium 8.7 mg/dL (8.6-10.3); Carbon Dioxide 20 mEq/L (23-29); Chloride 100 mEq/L (98-107); Glucose 269 mg/dL (70-105); Osmolality,Calculated 279 (280-300); Potassium 3.8 mEq/L (3.5-5.1); Sodium 130 mEq/L (136-145); eGFR For Non-African Americans > 60 (> 60)
[2018-07-21] MEDS: Insulin LISPRO 300 UNITS/3 ML VIAL SQ SCH ×4 (07:57→11:54)
[2018-07-21] MEDS: Insulin DETEMIR 100 UNIT/ML X5UNITS SQ SCH (08:03)
[2018-07-21] MEDS: Nystatin Cream 15 GM TUBE TP SCH (08:56)
--- NOTE | 2018-07-21 10:43 | Discharge Summary ---
- NOTES TO OUTPATIENT PROVIDER Notes to Outpatient Provider: For a removed prior to discharge. Follow-up with his own Urologist or with Dr. Bateman at [facility] as outpatient. Complete Abx for a total of 14 days. BMP in 5 days and he may be resumed on lasix and potassium supplement if Cr stable. Orders not resulted at time of discharge: Pending orders 07/17/18 19:11 Culture,Blood [BC] Stat Date of Encounter: 07/21/18 Time of Encounter: 07:30 - Discharge Diagnosis (1) Sepsis Priority: Primary Status: Acute Qualifiers: Sepsis type: Escherichia coli Qualified Code(s): A41.51 - Sepsis due to Escherichia coli [E. coli] (2) UTI (urinary tract infection) due to urinary indwelling Monson catheter Priority: Secondary Status: Acute Qualifiers: Indwelling urinary catheter type: indwelling urethral catheter Encounter type: initial encounter Qualified Code(s): T83.511A - Infection and inflammatory reaction due to indwelling urethral catheter, initial encounter; N3 9.0 - Urinary tract infection, site not specified (3) Hematuria Priority: Secondary Status: Resolved Qualifiers: Hematuria type: gross Qualified Code(s): R31.0 - Gross hematuria (4) Uncontrolled diabetes mellitus Priority: Secondary Status: Acute Qualifiers: Diabetes mellitus type: type 1 Glycemic state: with hyperglycemia Qu alified Code(s): E10.65 - Type 1 diabetes mellitus with hyperglycemia (5) DVT prophylaxis Priority: Secondary Status: Acute Hospital course: Mr. Khanna is a 72 year old male with history of chronic Monson due to urinary incontinence, hypertension, diabetes, CVA, was admitted for severe sepsis secondary to CAUTI and E.coli bacteremia. Required brief admission to ICU bed due to hypotension but did not require vasopressors. Improved with IV Rocephin for 4 days while inpatient and remained afebrile > 24 hours prior to d/c. Cr also downtrended to his baseline. Both 1 out of 2 sets of blood culture and urine culture came back positive for Escherichia coli sensitive to ceftriaxone. After prolonged discussion with urology, the decision was made to remove the Monson and follow-up as outpatient to determine the further need for urinary catheter. Patient was offered residential placement for further rehabilitation but declined and opted for instead. He is to complete a total of 14 days of antibiotics with by mouth Omnicef. Discharge discussed with: patient, nurse, social work, case management, consultants intern - Time Spent with Patient Total time spent providing and/or coordinating discharge services: 33 mins - Discharge Medications Prescriptions: New Cefdinir [Omnicef] 300 mg PO BID 10 Days #20 capsule Continue rOPINIRole [Requip] 0.25 mg PO HS Losartan Potassium [Cozaar] 100 mg PO DAILY Esomeprazole Magnesium [Nexium] 40 mg PO DAILY Atorvastatin [Lipitor] 40 mg PO HS HYDROcodone/Acet 7.5/325 mg [Perley 7.5-325 mg] 1 tab PO Q6H PRN PRN Reason: Pain Escitalopram [Lexapro] 10 mg PO DAILY Carvedilol [Coreg] 6.25 mg PO BIDWM Nitroglycerin 0.4 mg SL Q5MIN PRN 30 Days #28 tab.subl PRN Reason: Chest Pain Amitriptyline [Elavil] 25 mg PO HS Insulin Glargine [Lantus] 30 unit SQ HS Insulin Human Regular [HumuLIN R] 10 unit SQ TIDAC Metformin HCl 1,000 mg PO BIDWM Discontinued Potassium Chloride [Klor-Con 10] 10 meq PO DAILY Furosemide [Lasix] 40 mg PO DAILY Home Medications: Atorvastatin [Lipitor] 40 mg PO HS 10/04/17 [History] Carvedilol [Coreg] 6.25 mg PO BIDWM 10/04/17 [History] Escitalopram [Lexapro] 10 mg PO DAILY 10/04/17 [History] Esomeprazole Magnesium [Nexium] 40 mg PO DAILY 10/04/17 [History] HYDROcodone/Acet 7.5/325 mg [Perley 7.5-325 mg] 1 tab PO Q6H PRN 10/04/17 [History] Losartan Potassium [Cozaar] 100 mg PO DAILY 10/04/17 [History] rOPINIRole [Requip] 0.25 mg PO HS 10/04/17 [History] Nitroglycerin 0.4 mg SL Q5MIN PRN 30 Days #28 tab.subl 10/06/17 [Rx] Amitriptyline [Elavil] 25 mg PO HS 07/18/18 [History] Insulin Glargine [Lantus] 30 unit SQ HS 07/18/18 [History] Insulin Human Regular [HumuLIN R] 10 unit SQ TIDAC 07/18/18 [History] Metformin HCl 1,000 mg PO BIDWM 07/18/18 [History] Cefdinir [Omnicef] 300 mg PO BID 10 Days #20 capsule 07/21/18 [Rx] Allergies/Adverse Reactions: Allergy/AdvReac Type Severity Reaction Status Date / Time Penicillins [PCN] Allergy Hives Verified 07/14/18 03:03 shellfish derived Allergy Hives Verified 07/14/18 03:03 Date of admission: 07/17/18 22:53 Primary care physician: Aidan Gomez Consults: 07/17/18 20:02 Consult to Urology [CONS] Stat Consulting Provider: Urology Symone Reason for Consult: chronic indwelling monson secondary to chronic urinary incontinence.Hematuria.Recurrent UTI. Admitted for social needs. Time Notified: 20:03 Call Completed: No 07/17/18 22:59 Consult to Physician [CONS] Routine Consulting Provider: Serjio Bateman Reason for Consult: hematuria Time Notified: 22:59 Call Completed: Yes 07/19/18 09:57 Consult to Physical Therapy [CONS] Routine Comment: Evaluate, develop and implement POC Reason for Consult: Discharge planning Does patient have active BEDREST order?: No Is patient medically & hemodynamically stable?: Yes Patient assessed for mobility or mobilized this visit?: Yes 07/19/18 09:58 Consult to Occupational Therapy [CONS] Routine Comment: Evaluate, develop and implement POC Reason for Consult: Discharge planning Does patient have active BEDREST order?: No Is patient medically & hemodynamically stable?: Yes Patient assessed for mobility or mobilized this visit?: Yes - Constitutional Vitals: Temp Pulse Resp BP Pulse Ox 98.9 F 67 18 160/81 92 07/21/18 07:22 07/21/18 07:22 07/21/18 07:22 07/21/18 07:22 07/21/18 07:22 General appearance: Present: cooperative, A&O X 3, pleasant, no acute distress, answers questions appropriately Exam: General: Alert and oriented, not in acute distress. Cardiovascular:Normal S1 & S2, No JVD. Pulse regular. Lungs: clear to auscultation, no wheezes/rales Abdomen:Soft, non-tender, no rigidity. : No CVA tenderness, monson draining transparent urine Neurological:Normal cognition and motor skills. Non-focal - Patient Status Disposition: Home Health Service Condition: Good Overall status at discharge: patient is progressing back to baseline - Discharge Instructions Instructions: Sepsis (DC), Urinary Tract Infection in Men (DC), Diabetes Mellitus Type 2 in Adults (DC) Follow Up With: Atilio Lang MD [Primary Care Provider] - Serjio Bateman MD [Partnered Physician] - Additional Instructions: Complete PO Omnicef for 10 more days Monson removed BMP in 5 days, may be able to resume lasix and potassium supplement if it remains stable Follow up with his own Urologist at [facility] or with Dr. Bateman as outpatient in 1-2 weeks - Diet and Activity Activity: resume usual activities as tolerated Diet: diabetic diet
[2018-07-21 11:55] VITALS: BP 114/68
--- NOTE | 2018-07-21 12:03 | Physician Discharge Referral ---
Home Health/Hosp Referral Info Transfer to: Home Health Provider in Charge Post Discharge: PCP - Diagnosis (1) Sepsis Priority: Primary Status: Acute (2) UTI (urinary tract infection) due to urinary indwelling Chang catheter Priority: Secondary Status: Acute (3) Hematuria Priority: Secondary Status: Resolved (4) Uncontrolled diabetes mellitus Priority: Secondary Status: Acute (5) DVT prophylaxis Priority: Secondary Status: Acute - Respiratory Orders Smoking Cessation: Smoking cessation has been advised. For more information, call the [place] Tobacco Quit Line at 0-995-GBFS-NOW. - Services Needed Following services are medically necessary services: Nursing, Physical Therapy, Occupational Therapy - Transfer Medications Prescriptions: Cefdinir [Omnicef] 300 mg PO BID 10 Days #20 capsule Home Medications: Atorvastatin [Lipitor] 40 mg PO HS 10/04/17 [History] Carvedilol [Coreg] 6.25 mg PO BIDWM 10/04/17 [History] Escitalopram [Lexapro] 10 mg PO DAILY 10/04/17 [History] Esomeprazole Magnesium [Nexium] 40 mg PO DAILY 10/04/17 [History] HYDROcodone/Acet 7.5/325 mg [[place] 7.5-325 mg] 1 tab PO Q6H PRN 10/04/17 [History] Losartan Potassium [Cozaar] 100 mg PO DAILY 10/04/17 [History] rOPINIRole [Requip] 0.25 mg PO HS 10/04/17 [History] Nitroglycerin 0.4 mg SL Q5MIN PRN 30 Days #28 tab.subl 10/06/17 [Rx] Amitriptyline [Elavil] 25 mg PO HS 07/18/18 [History] Insulin Glargine [Lantus] 30 unit SQ HS 07/18/18 [History] Insulin Human Regular [HumuLIN R] 10 unit SQ TIDAC 07/18/18 [History] Metformin HCl 1,000 mg PO BIDWM 07/18/18 [History] Cefdinir [Omnicef] 300 mg PO BID 10 Days #20 capsule 07/21/18 [Rx] Allergies/Adverse Reactions: Allergy/AdvReac Type Severity Reaction Status Date / Time Penicillins [PCN] Allergy Hives Verified 07/14/18 03:03 shellfish derived Allergy Hives Verified 07/14/18 03:03 Certification: Further, I certify that my clinical findings support that this patient is homebound (i.e. absences from home require considerable and taxing effort and are for medical reasons or hindu services or infrequently or short duration when for other reasons) because: Homebound Reason: Patient requires assistance of a person or device to safely leave home Attestation: My signature below is to certify that this patient is under my care and that I, or nurse practitioner, or a physician's rn first assistant working with me, has a [id number] encounter with this patient.
== END 2018-07-21 15:35 | disposition home health service (06) | DRG 698 ==
LOC: 2ANU 17:33 → EMEROOARM 17:33 → ICNU 21:53 → SUATTDRO 22:53 → ICNU 23:05 → 2ANU 07-18 21:32
PROVIDERS: ADMIT Family Medicine; ATTEND Internal Medicine

== ENCOUNTER 2018-09-06 12:45 | Inpatient (IN) ==
[2018-09-06] MEDS ORDERED: 0.9 % Sodium Chloride 1,000 ML IVC ONE (13:19)
--- NOTE | 2018-09-06 13:27 | Emergency Department Note ---
Disposition Clinical Impression: Weakness, Hyperglycemia UTI (urinary tract infection) Qualifiers: Urinary tract infection type: site unspecified Hematuria presence: without hematuria Qualified Code(s): N39.0 - Urinary tract infection, site not specified Disposition: Admitted As Inpatient Condition: Fair Time of Disposition: 15:54 General Adult HPI - General Chief complaint: ED General Medical Stated complaint: elevated blood sugar,"UTI" Time Seen by Provider: 09/06/18 12:53 Source: patient, family Mode of arrival: ambulatory Limitations: no limitations Nursing Notes Reviewed: Yes Vital Signs Reviewed: Yes - History of Present Illness HPI Narrative: 72-year-old male with a history of CHF, diabetes, hypertension persists for evaluation of hyperglycemia and UTI. Patient states that he has been hospitalized in the past regarding his UTIs. States that he is having suprapubic comfort over the past couple days. Also been having some back pain. Patient denies any fevers but did note an episode of vomiting couple days ago. Reports generalized weakness with history of recent falls per the at bedside. Patient's also been having increased thirst. Patient does have in dwelling Chang catheter with recurrent UTIs, not currently on any antibiotics. Patient's at bedside states that they are trying to get placement into [facility]'s patient does live at home with the and feels that he no longer health care for him. Pain Scale: 8 - Related Data Home Medications Medication Instructions Recorded Confirmed Atorvastatin [Lipitor] 40 mg PO HS 10/04/17 09/06/18 Carvedilol [Coreg] 6.25 mg PO BIDWM 10/04/17 09/06/18 Escitalopram [Lexapro] 10 mg PO DAILY 10/04/17 09/06/18 Esomeprazole Magnesium [Nexium] 40 mg PO DAILY 10/04/17 09/06/18 HYDROcodone/Acet 7.5/325 mg [[place] 1 tab PO Q6H PRN 10/04/17 09/06/18 7.5-325 mg] Losartan Potassium [Cozaar] 100 mg PO DAILY 10/04/17 09/06/18 rOPINIRole [Requip] 0.25 mg PO HS 10/04/17 09/06/18 Amitriptyline [Elavil] 25 mg PO HS 07/18/18 09/06/18 Insulin Glargine [Lantus] 20 unit SQ HS 07/18/18 09/06/18 Insulin Human Regular [HumuLIN R] 11 unit SQ TIDAC 07/18/18 09/06/18 Metformin HCl 1,000 mg PO BIDWM 07/18/18 09/06/18 Furosemide [Lasix] 40 mg PO DAILY 09/06/18 09/06/18 Potassium Chloride [Klor-Con 10] 10 meq PO DAILY 09/06/18 09/06/18 Previous Rx's Medication Instructions Recorded Nitroglycerin 0.4 mg SL Q5MIN PRN 30 Days #28 10/06/17 tab.subl Allergies Allergy/AdvReac Type Severity Reaction Status Date / Time Penicillins [PCN] Allergy Hives Verified 09/06/18 12:58 shellfish derived Allergy Hives Verified 09/06/18 12:58 All systems ED: reviewed and negative except as stated. Constitutional: Denies: fever Cardiovascular: Denies: chest pain Respiratory: Denies: cough, dyspnea Gastrointestinal: Reports: abdominal pain, nausea, vomiting Past Medical History - Past Medical History Source: patient Medical history: Reports: cancer, CHF, CVA, diabetes, hyperlipidemia, hypertension, TIA Psychiatric history: Reports: depression - Social History Smoking Status: Former smoker Smokeless Tobacco Status: No Alcohol use: Reports: none Drug use: Reports: none Physical Exam - General Limitations: no limitations General appearance: alert, in no apparent distress - Head Head exam: atraumatic, normocephalic, normal inspection - Eye Eye exam: Present: normal appearance, PERRL, EOMI - ENT ENT exam: normal exam - Neck Neck exam: Present: normal inspection - Chest Chest inspection: Present: normal inspection, symmetric chest wall rise - Respiratory Respiratory exam: Present: normal lung sounds bilaterally. Absent: respiratory distress - Cardiovascular Cardiovascular exam: Present: regular rate, normal rhythm - Abdominal Exam Abdominal exam: Present: soft, Non-Tender - Male exam: Present: other (Chang catheter present.) - Extremities Exam Extremities exam: Present: normal inspection. Absent: pedal edema - Expanded Lower Extremity Exam Neurovascular/Tendon exam: Present: normal capillary refill - Back Exam Back exam: Present: normal inspection - Neurological Exam Neurological exam: Present: alert, oriented X3, CN II-XII intact - Skin Skin exam: Present: warm, dry, intact, normal color Course Course Narrative: Patient will get basic labs. Patient's cultures revealed the past showed Escherichia coli sensitive to Rocephin. Patient will get basic labs including lactate ABG as well as urinalysis chest x-ray given history of weakness as well as troponin. - Reevaluation(s) Reevaluation #1: Patient's glucose to be elevated. Patient was given insulin. Time: 14:40 Reevaluation #2: Patient's ED course discussed with him at bedside. Family are agreeable with admission given his UTI, hyperglycemia and generalized weakness. Time: 14:42 Vital Signs Temperature 98.7 F 09/06/18 12:55 Pulse Rate 96 09/06/18 12:55 Respiratory Rate 16 09/06/18 12:55 Blood Pressure 122/66 09/06/18 12:55 O2 Sat by Pulse Oximetry 94 09/06/18 12:55 Temperature 98.7 F 09/06/18 12:55 Pulse Rate 75 09/06/18 15:14 Respiratory Rate 18 09/06/18 15:14 Blood Pressure 137/57 09/06/18 15:14 O2 Sat by Pulse Oximetry 95 09/06/18 15:14 Oxygen Delivery Oxygen Delivery Room Air Medical Decision Making - MDM Narrative Medical decision making narrative: Patient presented for concerns of hyperglycemia and UTI. Does have indwelling catheter with recurrent UTIs. Patient blood sugars noted to be in the 500s. Patient was not acidotic or ketotic. Patient was treated with IV fluids as well as insulin. Patient hyperglycemia likely secondary to his UTI. Patient's prior urine cultures grew Escherichia coli sensitive to Rocephin. Patient has been feeling generally weak and does live at home with his . states that he has fallen. No neurologic deficits. No head trauma. No concerns for any central neurologic cause of the weakness. Patient family request placement department. Patient will be admitted to the hospital service for hyperglycemia, IV antibiotics PT OT evaluation and discharge planning. - Lab Data Lab results reviewed: Yes I reviewed the patient's lab results. Result diagrams: 09/06/18 13:25 09/06/18 13:25 Lab Results 09/06/18 09/06/18 09/06/18 Range/Units 13:25 13:25 13:30 WBC 10.5 (4.3-11.1) K/mcL RBC 4.42 (4.19-5.50) M/mcL Hgb 13.1 (12.9-16.9) g/dL Hct 38.6 (37.5-50.1) % MCV 87.3 (83.0-100.0) fL MCH 29.6 (28.0-33.3) pg MCHC 33.9 (31.6-35.5) g/dL RDW 12.8 (11.5-14.5) % Plt Count 162 (140-400) K/mcL MPV 11.3 (9.4-12.4) fL Immature Gran % 0.4 (0-4) % Seg Neutrophils % 85.7 % Lymphocytes % 6.2 % Monocytes % 7.1 % Eosinophils % 0.4 % Basophils % 0.2 % Neutrophils # 9.0 H (1.6-8.9) K/mcL Lymphocytes # 0.7 (0.6-4.6) K/mcL Monocytes # 0.8 (0.0-1.3) K/mcL Eosinophils # 0.0 (0.0-0.6) K/mcL Basophils # 0.0 (0.0-0.2) K/mcL VBG pH (7.32-7.42) pH Units VBG pCO2 (41-51) mmHg VBG pO2 (25-50) mmHg VBG HCO3 (21-27) mEq/L Sodium 127 L (136-145) mEq/L Potassium 3.9 (3.5-5.1) mEq/L Chloride 97 L (98-107) mEq/L Carbon Dioxide 21 L (23-29) mEq/L BUN 27 H (8-23) mg/dL Creatinine 0.96 (0.70-1.30) mg/dL Est GFR ( Amer) > 60 (> 60) Est GFR (Non-Af Amer) > 60 (> 60) BUN/Creatinine Ratio 28 H (6-26) Glucose 521 H* (70-105) mg/dL Calculated Osmolality 293 (280-300) Lactic Acid (0.5-2.2) mmol/L Calcium 9.4 (8.6-10.3) mg/dL Magnesium 1.6 (1.6-2.6) mg/dL Total Bilirubin 0.8 (0.3-1.0) mg/dL AST 16 (13-39) Units/L ALT 15 (7-52) Units/L Alkaline Phosphatase 93 (34-104) Units/L Troponin I 0.03 (< 0.04) ng/mL Serum Total Protein 7.0 (6.4-8.9) g/dL Albumin 3.5 (3.5-5.7) g/dL Globulin 3.5 (2.4-3.5) g/dL Albumin/Globulin Ratio 1.0 L (1.1-2.2) Beta-Hydroxybutyric Acd (0.02-0.27) mmol/L Urine Color Yellow (Yellow) Urine Clarity Turbid A (Clear) Urine pH 5.5 (5.0-8.0) pH Units Ur Specific [place] 1.017 (1.010-1.025) Urine Protein 100 H (Neg-Trace) mg/dL Urine Glucose (UA) >=1000 H (Normal) mg/dL Urine Ketones Negative (Negative) mg/dL Urine Blood Large H (Negative) Urine Nitrite Negative (Negative) Urine Bilirubin Negative (Negative) Urine Urobilinogen Normal (Normal) mg/dL Ur Leukocyte Esterase Large H (Negative) Urine Microscopic RBC Present (0-3) per hpf Urine Microscopic WBC TNTC H (0-3) per hpf Ur Squamous Epith Cells Many H (None-Few) per lpf Urine Bacteria Many H (None-Few) per hpf Hyaline Casts Test Not Performed Urine Yeast Present H (None Seen) per hpf Ur Culture Indicated? YES A (NO) 09/06/18 09/06/18 09/06/18 Range/Units 13:37 13:37 14:04 WBC (4.3-11.1) K/mcL RBC (4.19-5.50) M/mcL Hgb (12.9-16.9) g/dL Hct (37.5-50.1) % MCV (83.0-100.0) fL MCH (28.0-33.3) pg MCHC (31.6-35.5) g/dL RDW (11.5-14.5) % Plt Count (140-400) K/mcL MPV (9.4-12.4) fL Immature Gran % (0-4) % Seg Neutrophils % % Lymphocytes % % Monocytes % % Eosinophils % % Basophils % % Neutrophils # (1.6-8.9) K/mcL Lymphocytes # (0.6-4.6) K/mcL Monocytes # (0.0-1.3) K/mcL Eosinophils # (0.0-0.6) K/mcL Basophils # (0.0-0.2) K/mcL VBG pH 7.38 (7.32-7.42) pH Units VBG pCO2 35 L (41-51) mmHg VBG pO2 54 H (25-50) mmHg VBG HCO3 21 (21-27) mEq/L Sodium (136-145) mEq/L Potassium (3.5-5.1) mEq/L Chloride (98-107) mEq/L Carbon Dioxide (23-29) mEq/L BUN (8-23) mg/dL Creatinine (0.70-1.30) mg/dL Est GFR ( Amer) (> 60) Est GFR (Non-Af Amer) (> 60) BUN/Creatinine Ratio (6-26) Glucose (70-105) mg/dL Calculated Osmolality (280-300) Lactic Acid 2.1 (0.5-2.2) mmol/L Calcium (8.6-10.3) mg/dL Magnesium (1.6-2.6) mg/dL Total Bilirubin (0.3-1.0) mg/dL AST (13-39) Units/L ALT (7-52) Units/L Alkaline Phosphatase (34-104) Units/L Troponin I (< 0.04) ng/mL Serum Total Protein (6.4-8.9) g/dL Albumin (3.5-5.7) g/dL Globulin (2.4-3.5) g/dL Albumin/Globulin Ratio (1.1-2.2) Beta-Hydroxybutyric Acd 0.15 (0.02-0.27) mmol/L Urine Color (Yellow) Urine Clarity (Clear) Urine pH (5.0-8.0) pH Units Ur Specific [place] (1.010-1.025) Urine Protein (Neg-Trace) mg/dL Urine Glucose (UA) (Normal) mg/dL Urine Ketones (Negative) mg/dL Urine Blood (Negative) Urine Nitrite (Negative) Urine Bilirubin (Negative) Urine Urobilinogen (Normal) mg/dL Ur Leukocyte Esterase (Negative) Urine Microscopic RBC (0-3) per hpf Urine Microscopic WBC (0-3) per hpf Ur Squamous Epith Cells (None-Few) per lpf Urine Bacteria (None-Few) per hpf Hyaline Casts Urine Yeast (None Seen) per hpf Ur Culture Indicated? (NO) - Radiology Data Radiology results reviewed: Yes I reviewed the patient's radiology results. Chest X-Ray 09/06/18 13:18 IMPRESSION: Low lung volumes and mild bibasilar atelectasis. D/ / Boubacar Edwards MD / Boubacar Edwards MD Interpreting Provider: Boubacar Edwards MD - EKG Data EKG #1 EKG attestation: Yes I reviewed and interpreted this EKG. EKG shows normal: sinus rhythm Rate: normal Rhythm: NSR Klemme/QRS: left axis deviation, RBBB T wave inversions noted in: III, v1, v2 Interpretation: no acute changes, nonspecific ST-T wave changes S.Wm.Sherry - Caron Situation: Demographics Background: Presenting Complaint Assessment: Vital Signs, Course and respsone to treatment, Patient/Family Expectation Recommendation: Barrier(s) to disposition, Recommendation based on pending studies, treatments, or consults S.B.AMarci Report Given to: Hospitalist Caron Repor Time: 15:13
[2018-09-06 13:39] LABS: Bilirubin,Urine Negative (Negative); Blood,Urine Large (Negative); Clarity,Urine Turbid (Clear); Color,Urine Yellow (Yellow); Glucose,Urine (UA) >=1000 mg/dL (Normal); Ketones,Urine Negative (Negative); Leukocyte Esterase,Urine Large (Negative); Nitrite,Urine Negative (Negative); PH,Urine 5.5 pH Units (5.0-8.0); Protein,Urine 100 mg/dL (Neg-Trace); Specific Gravity,Urine 1.017 (1.010-1.025); Urobilinogen,Urine Normal (Normal)
[2018-09-06] MEDS ORDERED: *HR* FentaNYL (PF) 100 MCG/2 ML VIAL IVP ONE (13:48)
[2018-09-06 13:52] LABS: Basophils % 0.2 %; Eosinophils % 0.4 %; Hematocrit 38.6 % (37.5-50.1); Hemoglobin 13.1 g/dL (12.9-16.9); Immature Granulocytes % 0.4 % (0-4); Lymphocytes # 0.7 K/mcL (0.6-4.6); Lymphocytes % 6.2 %; Mean Corpuscular HGB Conc 33.9 g/dL (31.6-35.5); Mean Corpuscular Hemoglobin 29.6 pg (28.0-33.3); Mean Corpuscular Volume 87.3 fL (83.0-100.0); Mean Platelet Volume 11.3 fL (9.4-12.4); Monocytes # 0.8 K/mcL (0.0-1.3); Monocytes % 7.1 %; Platelet Count 162 K/mcL (140-400); Red Blood Count 4.42 M/mcL (4.19-5.50); Red Cell Distribution Width 12.8 % (11.5-14.5); Segmented Neutrophils % 85.7 %
[2018-09-06 13:56] LABS: Bacteria,Urine Many per hpf (None-Few); Squamous Epithelial Cell,Urine Many per lpf (None-Few); WBC,Urine TNTC per hpf (0-3)
[2018-09-06 14:06] LABS: VBG HCO3 21 mEq/L (21-27); VBG PCO2 35 mmHg (41-51); VBG PH 7.38 pH Units (7.32-7.42); VBG PO2 54 mmHg (25-50)
[2018-09-06] MEDS ORDERED: cefTRIAXone 1,000 MG in Water for inj. (sterile) 20 ML 10 ML IVP ONE (14:10)
[2018-09-06 14:35] LABS: Alanine Aminotransferase 15 Units/L (7-52); Albumin 3.5 g/dL (3.5-5.7); Alkaline Phosphatase 93 Units/L (34-104); Aspartate Amino Transferase 16 Units/L (13-39); BUN/Creatinine Ratio 28 (6-26); Bilirubin,Total 0.8 mg/dL (0.3-1.0); Blood Urea Nitrogen 27 mg/dL (8-23); Calcium 9.4 mg/dL (8.6-10.3); Carbon Dioxide 21 mEq/L (23-29); Chloride 97 mEq/L (98-107); Globulin 3.5 g/dL (2.4-3.5); Glucose 521 mg/dL (70-105); Magnesium 1.6 mg/dL (1.6-2.6); Osmolality,Calculated 293 (280-300); Potassium 3.9 mEq/L (3.5-5.1); Sodium 127 mEq/L (136-145); Troponin I 0.03 ng/mL (< 0.04); eGFR For Non-African Americans > 60 (> 60)
[2018-09-06] MEDS ORDERED: Insulin Human Regular 10 UNIT in 0.9 % Sodium Chloride 10 ML IV ONE (14:38)
[2018-09-06 14:41] LABS: Yeast,Urine Present per hpf (None Seen)
[2018-09-06 14:42] LABS: RBC,Urine Present per hpf (0-3)
--- NOTE | 2018-09-06 15:35 | Emergency Department Note ---
Disposition Clinical Impression: Weakness, Hyperglycemia UTI (urinary tract infection) Qualifiers: Urinary tract infection type: site unspecified Hematuria presence: without hematuria Qualified Code(s): N39.0 - Urinary tract infection, site not specified Disposition: Admitted As Inpatient Condition: Fair Time of Disposition: 15:35 General Adult HPI - General Chief complaint: ED General Medical Stated complaint: elevated blood sugar,"UTI" Time Seen by Provider: 09/06/18 12:53 Source: patient, family Mode of arrival: ambulatory Limitations: no limitations - History of Present Illness Pain Scale: 8 - Related Data Home Medications Medication Instructions Recorded Confirmed Atorvastatin [Lipitor] 40 mg PO HS 10/04/17 07/18/18 Carvedilol [Coreg] 6.25 mg PO BIDWM 10/04/17 07/18/18 Escitalopram [Lexapro] 10 mg PO DAILY 10/04/17 07/18/18 Esomeprazole Magnesium [Nexium] 40 mg PO DAILY 10/04/17 07/18/18 HYDROcodone/Acet 7.5/325 mg [[place] 1 tab PO Q6H PRN 10/04/17 07/18/18 7.5-325 mg] Losartan Potassium [Cozaar] 100 mg PO DAILY 10/04/17 07/18/18 rOPINIRole [Requip] 0.25 mg PO HS 10/04/17 07/18/18 Amitriptyline [Elavil] 25 mg PO HS 07/18/18 07/18/18 Insulin Glargine [Lantus] 30 unit SQ HS 07/18/18 07/18/18 Insulin Human Regular [HumuLIN R] 10 unit SQ TIDAC 07/18/18 07/18/18 Metformin HCl 1,000 mg PO BIDWM 07/18/18 07/18/18 Previous Rx's Medication Instructions Recorded Nitroglycerin 0.4 mg SL Q5MIN PRN 30 Days #28 10/06/17 tab.subl Allergies Allergy/AdvReac Type Severity Reaction Status Date / Time Penicillins [PCN] Allergy Hives Verified 09/06/18 12:58 shellfish derived Allergy Hives Verified 09/06/18 12:58 Constitutional: Denies: fever Cardiovascular: Denies: chest pain Respiratory: Denies: cough, dyspnea Gastrointestinal: Reports: abdominal pain, nausea, vomiting Past Medical History - Past Medical History Medical history: Reports: cancer, CHF, CVA, diabetes, hyperlipidemia, hypertension, TIA Psychiatric history: Reports: depression - Social History Smoking Status: Former smoker Smokeless Tobacco Status: No Alcohol use: Reports: none Drug use: Reports: none Physical Exam - General Limitations: no limitations General appearance: alert, in no apparent distress Course Vital Signs Temperature 98.7 F 09/06/18 12:55 Pulse Rate 96 09/06/18 12:55 Respiratory Rate 16 09/06/18 12:55 Blood Pressure 122/66 09/06/18 12:55 O2 Sat by Pulse Oximetry 94 09/06/18 12:55 Temperature 98.7 F 09/06/18 12:55 Pulse Rate 75 09/06/18 15:14 Respiratory Rate 18 09/06/18 15:14 Blood Pressure 137/57 09/06/18 15:14 O2 Sat by Pulse Oximetry 95 09/06/18 15:14 Oxygen Delivery Oxygen Delivery Room Air Medical Decision Making - Lab Data Result diagrams: 09/06/18 13:25 09/06/18 13:25 Lab Results 09/06/18 09/06/18 09/06/18 Range/Units 13:25 13:25 13:30 WBC 10.5 (4.3-11.1) K/mcL RBC 4.42 (4.19-5.50) M/mcL Hgb 13.1 (12.9-16.9) g/dL Hct 38.6 (37.5-50.1) % MCV 87.3 (83.0-100.0) fL MCH 29.6 (28.0-33.3) pg MCHC 33.9 (31.6-35.5) g/dL RDW 12.8 (11.5-14.5) % Plt Count 162 (140-400) K/mcL MPV 11.3 (9.4-12.4) fL Immature Gran % 0.4 (0-4) % Seg Neutrophils % 85.7 % Lymphocytes % 6.2 % Monocytes % 7.1 % Eosinophils % 0.4 % Basophils % 0.2 % Neutrophils # 9.0 H (1.6-8.9) K/mcL Lymphocytes # 0.7 (0.6-4.6) K/mcL Monocytes # 0.8 (0.0-1.3) K/mcL Eosinophils # 0.0 (0.0-0.6) K/mcL Basophils # 0.0 (0.0-0.2) K/mcL VBG pH (7.32-7.42) pH Units VBG pCO2 (41-51) mmHg VBG pO2 (25-50) mmHg VBG HCO3 (21-27) mEq/L Sodium 127 L (136-145) mEq/L Potassium 3.9 (3.5-5.1) mEq/L Chloride 97 L (98-107) mEq/L Carbon Dioxide 21 L (23-29) mEq/L BUN 27 H (8-23) mg/dL Creatinine 0.96 (0.70-1.30) mg/dL Est GFR ( Amer) > 60 (> 60) Est GFR (Non-Af Amer) > 60 (> 60) BUN/Creatinine Ratio 28 H (6-26) Glucose 521 H* (70-105) mg/dL Calculated Osmolality 293 (280-300) Lactic Acid (0.5-2.2) mmol/L Calcium 9.4 (8.6-10.3) mg/dL Magnesium 1.6 (1.6-2.6) mg/dL Total Bilirubin 0.8 (0.3-1.0) mg/dL AST 16 (13-39) Units/L ALT 15 (7-52) Units/L Alkaline Phosphatase 93 (34-104) Units/L Troponin I 0.03 (< 0.04) ng/mL Serum Total Protein 7.0 (6.4-8.9) g/dL Albumin 3.5 (3.5-5.7) g/dL Globulin 3.5 (2.4-3.5) g/dL Albumin/Globulin Ratio 1.0 L (1.1-2.2) Beta-Hydroxybutyric Acd (0.02-0.27) mmol/L Urine Color Yellow (Yellow) Urine Clarity Turbid A (Clear) Urine pH 5.5 (5.0-8.0) pH Units Ur Specific [place] 1.017 (1.010-1.025) Urine Protein 100 H (Neg-Trace) mg/dL Urine Glucose (UA) >=1000 H (Normal) mg/dL Urine Ketones Negative (Negative) mg/dL Urine Blood Large H (Negative) Urine Nitrite Negative (Negative) Urine Bilirubin Negative (Negative) Urine Urobilinogen Normal (Normal) mg/dL Ur Leukocyte Esterase Large H (Negative) Urine Microscopic RBC Present (0-3) per hpf Urine Microscopic WBC TNTC H (0-3) per hpf Ur Squamous Epith Cells Many H (None-Few) per lpf Urine Bacteria Many H (None-Few) per hpf Hyaline Casts Test Not Performed Urine Yeast Present H (None Seen) per hpf Ur Culture Indicated? YES A (NO) 09/06/18 09/06/18 09/06/18 Range/Units 13:37 13:37 14:04 WBC (4.3-11.1) K/mcL RBC (4.19-5.50) M/mcL Hgb (12.9-16.9) g/dL Hct (37.5-50.1) % MCV (83.0-100.0) fL MCH (28.0-33.3) pg MCHC (31.6-35.5) g/dL RDW (11.5-14.5) % Plt Count (140-400) K/mcL MPV (9.4-12.4) fL Immature Gran % (0-4) % Seg Neutrophils % % Lymphocytes % % Monocytes % % Eosinophils % % Basophils % % Neutrophils # (1.6-8.9) K/mcL Lymphocytes # (0.6-4.6) K/mcL Monocytes # (0.0-1.3) K/mcL Eosinophils # (0.0-0.6) K/mcL Basophils # (0.0-0.2) K/mcL VBG pH 7.38 (7.32-7.42) pH Units VBG pCO2 35 L (41-51) mmHg VBG pO2 54 H (25-50) mmHg VBG HCO3 21 (21-27) mEq/L Sodium (136-145) mEq/L Potassium (3.5-5.1) mEq/L Chloride (98-107) mEq/L Carbon Dioxide (23-29) mEq/L BUN (8-23) mg/dL Creatinine (0.70-1.30) mg/dL Est GFR ( Amer) (> 60) Est GFR (Non-Af Amer) (> 60) BUN/Creatinine Ratio (6-26) Glucose (70-105) mg/dL Calculated Osmolality (280-300) Lactic Acid 2.1 (0.5-2.2) mmol/L Calcium (8.6-10.3) mg/dL Magnesium (1.6-2.6) mg/dL Total Bilirubin (0.3-1.0) mg/dL AST (13-39) Units/L ALT (7-52) Units/L Alkaline Phosphatase (34-104) Units/L Troponin I (< 0.04) ng/mL Serum Total Protein (6.4-8.9) g/dL Albumin (3.5-5.7) g/dL Globulin (2.4-3.5) g/dL Albumin/Globulin Ratio (1.1-2.2) Beta-Hydroxybutyric Acd 0.15 (0.02-0.27) mmol/L Urine Color (Yellow) Urine Clarity (Clear) Urine pH (5.0-8.0) pH Units Ur Specific [place] (1.010-1.025) Urine Protein (Neg-Trace) mg/dL Urine Glucose (UA) (Normal) mg/dL Urine Ketones (Negative) mg/dL Urine Blood (Negative) Urine Nitrite (Negative) Urine Bilirubin (Negative) Urine Urobilinogen (Normal) mg/dL Ur Leukocyte Esterase (Negative) Urine Microscopic RBC (0-3) per hpf Urine Microscopic WBC (0-3) per hpf Ur Squamous Epith Cells (None-Few) per lpf Urine Bacteria (None-Few) per hpf Hyaline Casts Urine Yeast (None Seen) per hpf Ur Culture Indicated? (NO) Attestation Statement - Attestation Attestation: I examined this patient and my medical decision-making was reviewed with the Resident Physician. I agree with the documented findings, disposition and treatment plan as described except to the extent set forth below. 72 year old male prsnets ot [facility] ED with complaints of UTI and hyperglycemia and has presented as such [facility] the [facility] jacqui has an indwellign catheter and family has having a difficult time offering proper care to the jacqui at home and is considering [facility] care. Jacqui has a UTI that is sensitive to rocephin and will admit to medicine.
--- NOTE | 2018-09-06 16:38 | Internal Med History&Physical ---
Date of Encounter: 09/06/18 Time of Encounter: 16:08 Internal Medicine - H&P: HPI Chief complaint: weakness, fall, high blood sugar Admitted From: Home Plans for Post Hospital Care: Home History of present illness: Mr. Khanna is a 72 year old male with past medical history of diabetes, hypertension, CVA, urinary incontinence with chronic Chang, diastolic CSF who was recently discharged about a month ago with sepsis and UTI, came in with complain of increased urination and uncontrolled blood sugar associated with weakness. She was evaluated urology unless admission with recommendation to remove Chang catheter on discharge however patient and family mentioned that it was not removed as she was not able to urinate with condom catheter. Apparently was evaluated and was recommended rehabilitation however they went home with home health and later on were able to get retirement placement through primary care. Patient is coming back with uncontrolled blood sugar, polyuria and suprapubic discomfort. Suprapubic discomfort did not really want away since his last discharge as well as chronic low back pain. He denies any fevers chills however did have a few episodes of vomiting or past few days. Denies any li ghtheadedness numbness. Does feel weak as corroborated by family and has not been out of bed or chair with decreased mobility fatigue and episode of fall. Patient and his manages his medication. He is not able to tell me any of his medication. He finished his prolonged course of antibiotics on his last discharge as he had Escherichia coli bacteremia as well. He denies any chest pain or difficulty breathing. Patient was evaluated in ER was found to have hyperglycemia and possible UTI. Admission was requested for further management. Patient received 1 L of normal saline and ceftriaxone in ER. Past Med Surg Social Fam HX - Past Medical History Medical history: cancer, CHF, CVA, diabetes, hyperlipidemia, hypertension, TIA Additional medical history: breast CA Psychiatric history: depression - Past Surgical History Additional surgical history: right breast removed in 2001, breast cancer. right foot surgery and left hand surgery - Social History Smoking Status: Former smoker Smokeless Tobacco Status: No Alcohol use: none Drug use: none - Family History Father Living Status: Hx Family Cancer: Yes Hx Family Endocrine Disorder: Yes Mother Adopted: No Family Member Ethnicity: Non- Living Status: Hx Family Cardiac Disorders: No Hx Family Respiratory Disorders: No Hx Family Cancer: Yes Hx Family GI Disorders: No Hx Family Endocrine Disorder: No Hx Family Neuromuscular Disorders: No Hx Family Neurologic Disorders: No Hx Family HEENT Disorders: No Hx Family Autoimmune Disorders: No Internal Medicine - H&P: Meds Atorvastatin [Lipitor] 40 mg PO HS 10/04/17 [History] Carvedilol [Coreg] 6.25 mg PO BIDWM 10/04/17 [History] Escitalopram [Lexapro] 10 mg PO DAILY 10/04/17 [History] Esomeprazole Magnesium [Nexium] 40 mg PO DAILY 10/04/17 [History] HYDROcodone/Acet 7.5/325 mg [[place] 7.5-325 mg] 1 tab PO Q6H PRN 10/04/17 [History] Losartan Potassium [Cozaar] 100 mg PO DAILY 10/04/17 [History] rOPINIRole [Requip] 0.25 mg PO HS 10/04/17 [History] Nitroglycerin 0.4 mg SL Q5MIN PRN 30 Days #28 tab.subl 10/06/17 [Rx] Amitriptyline [Elavil] 25 mg PO HS 07/18/18 [History] Insulin Glargine [Lantus] 20 unit SQ HS 07/18/18 [History] Insulin Human Regular [HumuLIN R] 11 unit SQ TIDAC 07/18/18 [History] Metformin HCl 1,000 mg PO BIDWM 07/18/18 [History] Furosemide [Lasix] 40 mg PO DAILY 09/06/18 [History] Potassium Chloride [Klor-Con 10] 10 meq PO DAILY 09/06/18 [History] Allergy/AdvReac Type Severity Reaction Status Date / Time Penicillins [PCN] Allergy Hives Verified 09/06/18 12:58 shellfish derived Allergy Hives Verified 09/06/18 12:58 All Systems PM: A 10-system review of systems was performed and is negative for pertinent findings except as documented above in the HPI. - Constitutional Vitals: Temp Pulse Resp BP Pulse Ox 98.7 F 75 18 137/57 95 09/06/18 12:55 09/06/18 15:14 09/06/18 15:14 09/06/18 15:14 09/06/18 15:14 Exam: Constitutional: Vitals as noted. Conversant. No Apparent Distress. Well groomed. No obvious deformities. Eyes : Sclera white, conjunctiva clear, no lid lag, PEARLA. ENT : Grossly normal hearing. Oropharyngeal exam unremarkable. Moist mucus membranes. No JVD, no cervical lymphadenopathy. no thyromegaly or mass. Respiratory : Clear to auscultation bilaterally. No accessory muscle use, rales, rhonchi or wheezes Cardiovascular : RRR, +S1, +S2. no murmur, gallop, rubs. No chest wall tenderness GI/Abdominal : Soft, Non-tender, Non-distended, Chang in place with mild turbidity. erosive hypospadiasis. 1700 cc of urine Musculoskeletal: no deformity noted. no edema or cyanosis. warm extremities, pulses palpable and symmetrical in UE/LE. no calf tenderness. Neurological: AO X3, CN II-XII grossly intact, grossly normal motor and sensory exam. Skin: No skin rash, lesions or ulcers noted. Pych: depressed affect, AOx3. Internal Med - H&P Results - Labs CBC & Chem 7: 09/06/18 13:25 09/06/18 13:25 Labs: Short CBC 09/06/18 Range/Units 13:25 WBC 10.5 (4.3-11.1) K/mcL Hgb 13.1 (12.9-16.9) g/dL Hct 38.6 (37.5-50.1) % Plt Count 162 (140-400) K/mcL Neutrophils # 9.0 H (1.6-8.9) K/mcL BMP 09/06/18 13:25 Sodium 127 L Potassium 3.9 Chloride 97 L Carbon Dioxide 21 L BUN 27 H Creatinine 0.96 Glucose 521 H* Calcium 9.4 Cardiac Enzymes 09/06/18 Range/Units 13:25 Troponin I 0.03 (< 0.04) ng/mL Liver Function 09/06/18 Range/Units 13:25 Total Bilirubin 0.8 (0.3-1.0) mg/dL AST 16 (13-39) Units/L ALT 15 (7-52) Units/L Alkaline Phosphatase 93 (34-104) Units/L Albumin 3.5 (3.5-5.7) g/dL Urine 09/06/18 Range/Units 13:30 Urine Color Yellow (Yellow) Urine Clarity Turbid A (Clear) Urine pH 5.5 (5.0-8.0) pH Units Ur Specific [place] 1.017 (1.010-1.025) Urine Protein 100 H (Neg-Trace) mg/dL Urine Glucose (UA) >=1000 H (Normal) mg/dL - ABG Interpretation ABG results: 09/06/18 14:04 VBG pH 7.38 VBG pCO2 35 L VBG pO2 54 H VBG HCO3 21 - EKG Data -: EKG Interpreted by Myself EKG shows normal: sinus rhythm (rbbb) - Impressions ITS Impressions Chest X-Ray 09/06/18 13:18 IMPRESSION: Low lung volumes and mild bibasilar atelectasis. D/ / Boubacar Edwards MD / Boubacar Edwards MD Interpreting Provider: Boubacar Edwards MD - Assessment and Plan (1) Abnormal urinalysis Current Visit: Yes Status: Acute Assessment and plan: Patient without fever or white count. Denies abnormal UA but without nitrites. We will hold any antibiotics for now and monitor Follow-up urine cultures. Keep on maintenance IV fluids for now (2) Generalized weakness Current Visit: Yes Status: Acute Assessment and plan: Likely related to deconditioning and uncontrolled diabetes We will consult physical therapy and control blood sugar (3) Hyperglycemia Current Visit: Yes Status: Acute Assessment and plan: Patient with blood sugars in 500. Patient receive 10 units of regular insulin in ER Keep patient on insulin sliding scale and Accu-Cheks. We will add long-acting insulin 15 units at bedtime Hold home oral hypoglycemics The patient on IV fluids for now Diabetic diet. Diabetic diet education (4) DVT prophylaxis Current Visit: No Status: Acute (5) Diastolic CHF, chronic Current Visit: No Status: Chronic Assessment and plan: Does not appear to be in exacerbation Hold home diuretics for now (6) HLD (hyperlipidemia) Current Visit: No Status: Chronic Assessment and plan: Continue home statin Qualifiers: Hyperlipidemia type: unspecified Qualified Code(s): E78.5 - Hyperlipidemia, unspecified (7) HTN (hypertension) Current Visit: No Status: Chronic Assessment and plan: Hold home antihypertensive for now given blood pressure on the lower end Qualifiers: Hypertension type: essential hypertension Qualified Code(s): I10 - Essential (primary) hypertension (8) Obesity (BMI 30.0-34.9) Current Visit: No Status: Chronic Assessment and plan: Consult on weight loss with lifestyle changes and activity. (9) Urge incontinence Current Visit: No Status: Chronic Assessment and plan: Patient has chronic indwelling Chang catheter for almost a year Developed multiple UTI, erosive hypospadiasis and complication afterward Given previous urology recommendation to remove urinary catheter and patient concern for not being able to manage without catheter we will consult urology for possible options (10) Hyponatremia Current Visit: No Status: Acute Assessment and plan: Has puedohyponatremia with correction to 134 with hyperglycemia continue on maintainence IVF. - Time Spent With Patient Total time spent is greater than 50% in coordination of care (as documented) at patient's floor/unit and/or counseling patient:
[2018-09-06] MEDS: Ringers Solution, Lactated 1,000 ML IVC SCH (18:32)
[2018-09-06] MEDS ORDERED: Insulin DETEMIR 100 UNIT/ML X5UNITS SQ SCH (21:00)
[2018-09-06] MEDS: rOPINIRole 0.25 MG TABLET PO SCH (21:07)
[2018-09-06] MEDS: Insulin LISPRO 300 UNITS/3 ML VIAL SQ SCH (21:13)
[2018-09-07 06:41] LABS: BUN/Creatinine Ratio 22 (6-26); Blood Urea Nitrogen 16 mg/dL (8-23); Calcium 8.4 mg/dL (8.6-10.3); Carbon Dioxide 20 mEq/L (23-29); Chloride 101 mEq/L (98-107); Glucose 234 mg/dL (70-105); Osmolality,Calculated 277 (280-300); Potassium 3.4 mEq/L (3.5-5.1); Sodium 129 mEq/L (136-145); eGFR For Non-African Americans > 60 (> 60)
[2018-09-07 06:57] LABS: Acinetobacter baumannii by PCR Not Detected (Not Detect); Candida albicans by PCR Not Detected (Not Detect); Candida glabrata by PCR Not Detected (Not Detect); Candida krusei by PCR Not Detected (Not Detect); Candida parapsilosis by PCR Not Detected (Not Detect); Candida tropicalis by PCR Not Detected (Not Detect); Enterobacter cloacae Cmplx PCR Not Detected (Not Detect); Enterobacteriaceae by PCR Not Detected (Not Detect); Enterococcus by PCR DETECTED (Not Detect); Escherichia coli by PCR Not Detected (Not Detect); Klebsiella oxytoca by PCR Not Detected (Not Detect); Klebsiella pneumoniae by PCR Not Detected (Not Detect); Proteus by PCR Not Detected (Not Detect); Pseudomonas aeruginosa by PCR Not Detected (Not Detect); Serratia marcescens by PCR Not Detected (Not Detect); Staphylococcus aureus by PCR Not Detected (Not Detect); Staphylococcus by PCR Not Detected (Not Detect); Streptococcus agalactiae(B)PCR Not Detected (Not Detect); Streptococcus by PCR Not Detected (Not Detect); Streptococcus pneumoniae PCR Not Detected (Not Detect); Streptococcus pyogenes (A) PCR Not Detected (Not Detect); vanA/B Vancomycin-Resist Genes Not Detected (Not Detect)
[2018-09-07] MEDS ORDERED: *HR* Dextrose 50 % in Water (Syg) 50 ML SYRINGE IVP PRN (07:36)
[2018-09-07] MEDS ORDERED: Dextrose Gel 15 GM/37.5 ML TUBE PO PRN ×2 (07:36)
[2018-09-07] MEDS ORDERED: D5% in Water 1,000 ML IVC PRN (07:36)
[2018-09-07] MEDS: Ringers Solution, Lactated 1,000 ML IVC SCH ×2 (08:36→21:07)
[2018-09-07] MEDS: Insulin LISPRO 300 UNITS/3 ML VIAL SQ SCH ×4 (08:39→21:07)
--- NOTE | 2018-09-07 08:44 | Urology - Consult Note ---
<Felipa Vasquez N - Last Filed: 09/07/18 08:38> Date of Encounter: 09/07/18 Time of Encounter: 07:50 - Assessment and Plan (1) Indwelling Monson catheter present Current Visit: Yes Status: Acute Assessment and plan: Patient is 72-year-old male who presents with a chronic indwelling Monson catheter secondary to severe urge incontinence. Patient was recently hospitalized with Escherichia coli urinary tract infection with bacteremia. Patient now has gram-positive cocci in preliminary blood culture. Patient is agreeable to try and remove Monson catheter. Documentation suggests the patient was unable to void with condom catheter, but he does not recall any history of urinary retention. Dr. Bateman will be in to reevaluate patient this afternoon and possibly remove Monson catheter. (2) Sepsis Current Visit: Yes Status: Acute Assessment and plan: Patient is a 72-year-old male who presents with a positive blood culture for gram-positive cocci. Urine culture is pending. Patient has a recent history of Escherichia coli bacteremia approximately 7 weeks ago. Vital signs are stable and afebrile. Patient is receiving IV vancomycin. We will await final culture and sensitivity report. Qualifiers: Sepsis type: sepsis due to unspecified organism Qualified Code(s): A41.9 - Sepsis, unspecified organism (3) Urge incontinence Current Visit: Yes Status: Chronic Assessment and plan: Patient is a 72-year-old male who presents with severe urge incontinence that has been refractory to multiple treatment options. Patient has developed erosive hypospadias, recurrent UTI, and intermittent gross hematuria secondary to chronic indwelling Monson catheter. Patient is considering Monson catheter removal. We previously discussed suprapubic tube placement as an alternative. Dr. Bateman will be in to reevaluate patient and discuss options this afternoon. Urology CN:HPI Consult date: 09/07/18 Reason for consult Urology: Other (chronic indwelling monson; incontinence) Requesting physician: Dread Edwards History of present illness: Patient is a 72-year-old male who presents with a chronic indwelling Monson catheter and history of urinary tract infection. Patient has unfortunately failed intravesical Botox, InterStim and oral medications for refractory urge incontinence, and he has been managing the incontinence with an indwelling monson catheter. Patient presented to the emergency department with complaints of progressive weakness, hyperglycemia, vomiting and concern for urinary tract infection. Patient was admitted to the hospital approximately 7 weeks ago for Escherichia coli bacteremia, and during that stay, urology recommended catheter removal secondary to increased risk of infection. Patient was discharged with monson catheter in place, and he does not believe his infection completely cleared. Patient admits to increased urinary urgency, weakness, fatigue, nausea and vomiting, but he denies any fever, chills, flank pain or gross hematuria. Patient noticed some blood in catheter tubing a few days ago, but it has since resolved. Urine culture is pending, but preliminary blood culture is positive for gram positive cocci. Past Med Surg Social Fam HX - Past Medical History Medical history: cancer, CHF, CVA, diabetes, hyperlipidemia, hypertension, TIA Additional medical history: breast CA Psychiatric history: depression - Past Surgical History Additional surgical history: right breast removed in 2001, breast cancer. right foot surgery and left hand surgery - Social History Smoking Status: Former smoker Smokeless Tobacco Status: No Alcohol use: none Drug use: none - Family History Father Living Status: Hx Family Cancer: Yes Hx Family Endocrine Disorder: Yes Mother Adopted: No Family Member Ethnicity: Non- Living Status: Hx Family Cardiac Disorders: No Hx Family Respiratory Disorders: No Hx Family Cancer: Yes Hx Family GI Disorders: No Hx Family Endocrine Disorder: No Hx Family Neuromuscular Disorders: No Hx Family Neurologic Disorders: No Hx Family HEENT Disorders: No Hx Family Autoimmune Disorders: No Medications and Allergies Atorvastatin [Lipitor] 40 mg PO HS 10/04/17 [History] Carvedilol [Coreg] 6.25 mg PO BIDWM 10/04/17 [History] Escitalopram [Lexapro] 10 mg PO DAILY 10/04/17 [History] Esomeprazole Magnesium [Nexium] 40 mg PO DAILY 10/04/17 [History] HYDROcodone/Acet 7.5/325 mg [[place] 7.5-325 mg] 1 tab PO Q6H PRN 10/04/17 [History] Losartan Potassium [Cozaar] 100 mg PO DAILY 10/04/17 [History] rOPINIRole [Requip] 0.25 mg PO HS 10/04/17 [History] Nitroglycerin 0.4 mg SL Q5MIN PRN 30 Days #28 tab.subl 10/06/17 [Rx] Amitriptyline [Elavil] 25 mg PO HS 07/18/18 [History] Insulin Glargine [Lantus] 20 unit SQ HS 07/18/18 [History] Insulin Human Regular [HumuLIN R] 11 unit SQ TIDAC 07/18/18 [History] Metformin HCl 1,000 mg PO BIDWM 07/18/18 [History] Furosemide [Lasix] 40 mg PO DAILY 09/06/18 [History] Potassium Chloride [Klor-Con 10] 10 meq PO DAILY 09/06/18 [History] Allergy/AdvReac Type Severity Reaction Status Date / Time Penicillins [PCN] Allergy Hives Verified 09/06/18 12:58 shellfish derived Allergy Hives Verified 09/06/18 12:58 Review of Systems - Constitutional no chills, no fatigue, no fever(s) - EENT Nose, mouth and throat: no dizziness, no headache(s) - Cardiovascular no chest pain, no diaphoresis, no dyspnea - Respiratory no cough, no dyspnea - Gastrointestinal nausea, vomiting, no abdominal pain - Genitourinary dysuria, hematuria, urinary incontinence, urinary urgency, no difficulty urinating, no urinary frequency, no urinary hesitancy - Musculoskeletal back pain, no muscle weakness - Integumentary no erythema, no rash - Neurological no confusion, no syncope - Psychiatric no anxiety, no confusion - Hematologic/Lymphatic no easy bleeding, no easy bruising - Allergic/Immunologic no throat swelling, no wheezing Exam Initial Vital Signs Temp Pulse Resp BP Pulse Ox 98.7 F 96 16 122/66 94 09/06/18 12:55 09/06/18 12:55 09/06/18 12:55 09/06/18 12:55 09/06/18 12:55 - General physical appearance Present: no distress, no pain, chronically ill - Eyes Present: PERRL, normal ocular movement - ENT Present: normal nares, no congestion, decreased hearing - Neck Present: no masses, trachea midline, no lymphadenopathy - Respiratory Present: normal respiratory effort - Cardiovascular Cardiovascular exam IM: RRR - Abdomen Abdomen: Present: soft, non tender. Absent: distended - Genitourinary other (monson catheter indwelling and draining clear yellow urine into bedside bag) Urethral meatis: Present: other (erosive hypospadius ) - Integumentary Present: no rash, no abnormal pigmentation - Neurologic Present: normal coordination - Musculoskeletal Present: other (normal posture ) Urology Results - Labs 09/06/18 13:25 09/07/18 05:19 Abnormal lab results 9.0 K/mcL (1.6-8.9) H 09/06/18 13:25 VBG pCO2 35 mmHg (41-51) L 09/06/18 14:04 VBG pO2 54 mmHg (25-50) H 09/06/18 14:04 Sodium 129 mEq/L (136-145) L 09/07/18 05:19 Potassium 3.4 mEq/L (3.5-5.1) L 09/07/18 05:19 Chloride 97 mEq/L (98-107) L 09/06/18 13:25 Carbon Dioxide 20 mEq/L (23-29) L 09/07/18 05:19 BUN 27 mg/dL (8-23) H 09/06/18 13:25 28 (6-26) H 09/06/18 13:25 Glucose 234 mg/dL (70-105) H 09/07/18 05:19 POC Glucose 335 mg/dL (70-99) H 09/06/18 21:12 277 (280-300) L 09/07/18 05:19 Calcium 8.4 mg/dL (8.6-10.3) L 09/07/18 05:19 1.0 (1.1-2.2) L 09/06/18 13:25 Turbid (Clear) A 09/06/18 13:30 100 mg/dL (Neg-Trace) H 09/06/18 13:30 >=1000 mg/dL (Normal) H 09/06/18 13:30 Large (Negative) H 09/06/18 13:30 Ur Leukocyte Esterase Large (Negative) H 09/06/18 13:30 TNTC per hpf (0-3) H 09/06/18 13:30 Ur Squamous Epith Cells Many per lpf (None-Few) H 09/06/18 13:30 Many per hpf (None-Few) H 09/06/18 13:30 Present per hpf (None Seen) H 09/06/18 13:30 Ur Culture Indicated? YES (NO) A 09/06/18 13:30 Enterococcus sp PCR DETECTED (Not Detect) A 09/06/18 13:37 Diabetes panel 09/06/18 09/07/18 Range/Units 13:25 05:19 Sodium 127 L 129 L (136-145) mEq/L Potassium 3.9 3.4 L (3.5-5.1) mEq/L Chloride 97 L 101 (98-107) mEq/L Carbon Dioxide 21 L 20 L (23-29) mEq/L BUN 27 H 16 (8-23) mg/dL Creatinine 0.96 0.73 (0.70-1.30) mg/dL Glucose 521 H* 234 H (70-105) mg/dL Calcium 9.4 8.4 L (8.6-10.3) mg/dL AST 16 (13-39) Units/L ALT 15 (7-52) Units/L Alkaline Phosphatase 93 (34-104) Units/L Albumin 3.5 (3.5-5.7) g/dL Calcium panel 09/06/18 09/07/18 Range/Units 13:25 05:19 Calcium 9.4 8.4 L (8.6-10.3) mg/dL Albumin 3.5 (3.5-5.7) g/dL Pituitary panel 09/06/18 09/07/18 Range/Units 13:25 05:19 Sodium 127 L 129 L (136-145) mEq/L Potassium 3.9 3.4 L (3.5-5.1) mEq/L Chloride 97 L 101 (98-107) mEq/L Carbon Dioxide 21 L 20 L (23-29) mEq/L BUN 27 H 16 (8-23) mg/dL Creatinine 0.96 0.73 (0.70-1.30) mg/dL Glucose 521 H* 234 H (70-105) mg/dL Calcium 9.4 8.4 L (8.6-10.3) mg/dL Adrenal panel 09/06/18 09/07/18 Range/Units 13:25 05:19 Sodium 127 L 129 L (136-145) mEq/L Potassium 3.9 3.4 L (3.5-5.1) mEq/L Chloride 97 L 101 (98-107) mEq/L Carbon Dioxide 21 L 20 L (23-29) mEq/L BUN 27 H 16 (8-23) mg/dL Creatinine 0.96 0.73 (0.70-1.30) mg/dL Glucose 521 H* 234 H (70-105) mg/dL Calcium 9.4 8.4 L (8.6-10.3) mg/dL Total Bilirubin 0.8 (0.3-1.0) mg/dL AST 16 (13-39) Units/L ALT 15 (7-52) Units/L Alkaline Phosphatase 93 (34-104) Units/L Albumin 3.5 (3.5-5.7) g/dL All other labs normal. Consult Discharge Plan - Plan Referrals: Atilio Torrez, [Primary Care Provider] - <Serjio Bateman - Last Filed: 09/07/18 17:49> Date of Encounter: 09/07/18 - Assessment and Plan (1) Incontinence without sensory awareness Current Visit: Yes Status: Acute Assessment and plan: Patient has demonstrated profound incontinence in the past refractory to all t reatment. He has persistent urinary tract infections. He has had complications from the indwelling catheter in the past. Questionable recent retention. He wishes to try to manage without the catheter at discharge. Please remove the Monson catheter one day prior to planned discharge to verify that he is urinating. Agree with physician assistants assessment and plan. Patient seen and examined by myself independently Exam Initial Vital Signs Temp Pulse Resp BP Pulse Ox 98.7 F 96 16 122/66 94 09/06/18 12:55 09/06/18 12:55 09/06/18 12:55 09/06/18 12:55 09/06/18 12:55 Urology Results - Labs 09/06/18 13:25 09/07/18 05:19 Abnormal lab results 9.0 K/mcL (1.6-8.9) H 09/06/18 13:25 VBG pCO2 35 mmHg (41-51) L 09/06/18 14:04 VBG pO2 54 mmHg (25-50) H 09/06/18 14:04 Sodium 129 mEq/L (136-145) L 09/07/18 05:19 Potassium 3.4 mEq/L (3.5-5.1) L 09/07/18 05:19 Chloride 97 mEq/L (98-107) L 09/06/18 13:25 Carbon Dioxide 20 mEq/L (23-29) L 09/07/18 05:19 BUN 27 mg/dL (8-23) H 09/06/18 13:25 28 (6-26) H 09/06/18 13:25 Glucose 234 mg/dL (70-105) H 09/07/18 05:19 POC Glucose 335 mg/dL (70-99) H 09/06/18 21:12 277 (280-300) L 09/07/18 05:19 Calcium 8.4 mg/dL (8.6-10.3) L 09/07/18 05:19 1.0 (1.1-2.2) L 09/06/18 13:25 Turbid (Clear) A 09/06/18 13:30 100 mg/dL (Neg-Trace) H 09/06/18 13:30 >=1000 mg/dL (Normal) H 09/06/18 13:30 Large (Negative) H 09/06/18 13:30 Ur Leukocyte Esterase Large (Negative) H 09/06/18 13:30 TNTC per hpf (0-3) H 09/06/18 13:30 Ur Squamous Epith Cells Many per lpf (None-Few) H 09/06/18 13:30 Many per hpf (None-Few) H 09/06/18 13:30 Present per hpf (None Seen) H 09/06/18 13:30 Ur Culture Indicated? YES (NO) A 09/06/18 13:30 Enterococcus sp PCR DETECTED (Not Detect) A 09/06/18 13:37 Diabetes panel 09/07/18 Range/Units 05: Sodium 129 L (136-145) mEq/L Potassium 3.4 L (3.5-5.1) mEq/L Chloride 101 (98-107) mEq/L Carbon Dioxide 20 L (23-29) mEq/L BUN 16 (8-23) mg/dL Creatinine 0.73 (0.70-1.30) mg/dL Glucose 234 H (70-105) mg/dL Calcium 8.4 L (8.6-10.3) mg/dL Calcium panel 09/07/18 Range/Units 05: Calcium 8.4 L (8.6-10.3) mg/dL Pituitary panel 09/07/18 Range/Units 05:19 Sodium 129 L (136-145) mEq/L Potassium 3.4 L (3.5-5.1) mEq/L Chloride 101 (98-107) mEq/L Carbon Dioxide 20 L (23-29) mEq/L BUN 16 (8-23) mg/dL Creatinine 0.73 (0.70-1.30) mg/dL Glucose 234 H (70-105) mg/dL Calcium 8.4 L (8.6-10.3) mg/dL Adrenal panel 09/07/18 Range/Units 05:19 Sodium 129 L (136-145) mEq/L Potassium 3.4 L (3.5-5.1) mEq/L Chloride 101 (98-107) mEq/L Carbon Dioxide 20 L (23-29) mEq/L BUN 16 (8-23) mg/dL Creatinine 0.73 (0.70-1.30) mg/dL Glucose 234 H (70-105) mg/dL Calcium 8.4 L (8.6-10.3) mg/dL All other labs normal.
--- NOTE | 2018-09-07 09:27 | Electrocardiograph Report ---
[address] [address] Test Date: 2018-09-06 Pat Name: Pattie Khanna Department: EXAM3 Room: 2A Gender: M Care Support Representative: : 1945 Requested By: Mervin Lopez Order Number: [id number] Reading MD: Raymundo Pat Measurements Intervals [place] Rate: 68 P: 33 NV: 160 QRS: -35 QRSD: 153 T: -3 QT: 414 QTc: 441 Interpretive Statements Sinus rhythm Right bundle branch block Electronically Signed On 09-07-2018 9:26:08 EDT by Raymundo Pat
--- NOTE | 2018-09-07 10:12 | Internal Med Progress Note ---
Hospitalist Progress Note - Encounter Date of Encounter: 09/07/18 Time of Encounter: 10:12 - Subjective Interval History: Patient seen and examined this morning at bedside. No acute overnight events. Patient denies any fevers chills nausea vomiting or diarrhea. Denies new complaints. Working with physical therapy and currently sitting in chair. Has Monson in place - Exam Vitals: Temp Pulse Resp BP Pulse Ox 98.4 F 73 18 124/75 94 09/07/18 07:12 09/07/18 07:12 09/07/18 07:12 09/07/18 07:12 09/07/18 08:48 Exam: Constitutional: Vitals as noted. Conversant. No Apparent Distress. Obesity Respiratory : CTAB. No accessory muscle use, rales, rhonchi or wheezes Cardiovascular : RRR, +S1, +S2. no murmur, gallop, rubs. No chest wall tenderness GI/Abdominal : Soft, Non-tender, Non-distended, Monson in plac erosive hypospadiasis. Musculoskeletal: no deformity noted. no edema. no calf tenderness. Neurological: AO X3, CN II-XII grossly intact, grossly normal motor and sensory exam. Skin: No skin rash, lesions or ulcers noted. Pych: depressed affect, AOx3. - Assessment and Plan (1) Abnormal urinalysis Current Visit: Yes Status: Acute (2) Generalized weakness Current Visit: Yes Status: Acute (3) Hyperglycemia Current Visit: Yes Status: Acute (4) DVT prophylaxis Current Visit: No Status: Acute (5) Diastolic CHF, chronic Current Visit: No Status: Chronic (6) HLD (hyperlipidemia) Current Visit: No Status: Chronic (7) HTN (hypertension) Current Visit: No Status: Chronic (8) Obesity (BMI 30.0-34.9) Current Visit: No Status: Chronic (9) Urge incontinence Current Visit: Yes Status: Chronic (10) Hyponatremia Current Visit: No Status: Acute - Summary of Assessment and Plan Summary of Assessment and Plan: Assessment Acute Unctrolled diabetes Possible UTI GPC bacteremia likely enteroccocus Penicllin allergy Psuedohyponatremia Hypokalemia Chronic HTN CVA Urinary incontinence with chronic indwelling monson Recurrent UTI Diastolic CHF DM Plan - Started on Vancomycin for GPC bacteremia. Likely enterococcus based on PCR. Not seen on previous cultures. Has penicillin allergy with hives. Will consult allegist for allergy testing to plan for deescalation. repeat Blood/urine culture. Await C&S. Not in sepsis - Has chronic monson for incontinence with multiple complications. Urology consulted. Recommendation appreciated. Likely with try removing monson in afternoon. - BG improved. c/w SSI, accuchecks and 20 levemir . - replete potassium - f/u PT/OT recommendation - Time Spent with Patient Total time spent is greater than 50% in coordination of care (as documented) at patient's floor/unit and/or counseling patient: Internal Medicine: Result - Labs CBC & Chem 7: 09/06/18 13:25 09/07/18 05:19 Labs: Short CBC 09/06/18 Range/Units 13:25 WBC 10.5 (4.3-11.1) K/mcL Hgb 13.1 (12.9-16.9) g/dL Hct 38.6 (37.5-50.1) % Plt Count 162 (140-400) K/mcL Neutrophils # 9.0 H (1.6-8.9) K/mcL BMP 09/06/18 09/07/18 13:25 05:19 Sodium 127 L 129 L Potassium 3.9 3.4 L Chloride 97 L 101 Carbon Dioxide 21 L 20 L BUN 27 H 16 Creatinine 0.96 0.73 Glucose 521 H* 234 H Calcium 9.4 8.4 L Cardiac Enzymes 09/06/18 Range/Units 13:25 Troponin I 0.03 (< 0.04) ng/mL Liver Function 09/06/18 Range/Units 13:25 Total Bilirubin 0.8 (0.3-1.0) mg/dL AST 16 (13-39) Units/L ALT 15 (7-52) Units/L Alkaline Phosphatase 93 (34-104) Units/L Albumin 3.5 (3.5-5.7) g/dL Urine 09/06/18 Range/Units 13:30 Urine Color Yellow (Yellow) Urine Clarity Turbid A (Clear) Urine pH 5.5 (5.0-8.0) pH Units Ur Specific [place] 1.017 (1.010-1.025) Urine Protein 100 H (Neg-Trace) mg/dL Urine Glucose (UA) >=1000 H (Normal) mg/dL - Impressions Impressions Chest X-Ray 09/06/18 13:18 IMPRESSION: Low lung volumes and mild bibasilar atelectasis. D/ / Boubacar Edwards MD / Boubacar Edwards MD Interpreting Provider: Boubacar Edwards MD Consult Discharge Plan - Plan Referrals: Atilio Torrez DO [Primary Care Provider] - (6) HLD (hyperlipidemia) Qualifiers: Hyperlipidemia type: unspecified Qualified Code(s): E78.5 - Hyperlipidemia, unspecified (7) HTN (hypertension) Qualifiers: Hypertension type: essential hypertension Qualified Code(s): I10 - Essential (primary) hypertension
[2018-09-07] MEDS: rOPINIRole 0.25 MG TABLET PO SCH (21:07)
[2018-09-07] MEDS: Insulin DETEMIR 100 UNIT/ML X5UNITS SQ SCH (21:07)
[2018-09-08] MEDS: *HR* HYDROcodone/Acet 7.5/325 mg TABLET PO PRN (03:50)
[2018-09-08 05:14] LABS: Basophils % 0.5 %; Eosinophils # 0.4 K/mcL (0.0-0.6); Eosinophils % 4.7 %; Hematocrit 33.6 % (37.5-50.1); Hemoglobin 11.6 g/dL (12.9-16.9); Immature Granulocytes % 0.4 % (0-4); Lymphocytes # 1.8 K/mcL (0.6-4.6); Lymphocytes % 23.9 %; Mean Corpuscular HGB Conc 34.5 g/dL (31.6-35.5); Mean Corpuscular Hemoglobin 29.9 pg (28.0-33.3); Mean Corpuscular Volume 86.6 fL (83.0-100.0); Mean Platelet Volume 10.2 fL (9.4-12.4); Monocytes # 0.7 K/mcL (0.0-1.3); Monocytes % 8.6 %; Neutrophils # 4.8 K/mcL (1.6-8.9); Platelet Count 166 K/mcL (140-400); Red Blood Count 3.88 M/mcL (4.19-5.50); Red Cell Distribution Width 12.4 % (11.5-14.5); Segmented Neutrophils % 61.9 %
[2018-09-08 05:33] LABS: BUN/Creatinine Ratio 17 (6-26); Blood Urea Nitrogen 11 mg/dL (8-23); Calcium 8.6 mg/dL (8.6-10.3); Carbon Dioxide 24 mEq/L (23-29); Chloride 102 mEq/L (98-107); Glucose 286 mg/dL (70-105); Osmolality,Calculated 286 (280-300); Potassium 3.7 mEq/L (3.5-5.1); Sodium 133 mEq/L (136-145); eGFR For Non-African Americans > 60 (> 60)
[2018-09-08] MEDS ORDERED: EPINEPHrine 1 MG/ML VIAL IV PRN (07:09)
[2018-09-08] MEDS ORDERED: Amoxicillin Susp 250 MG/5 ML UDC PO ONE (07:15)
[2018-09-08] MEDS ORDERED: Penicillin test 1000 units/0.1 ml TP ONE (07:15)
[2018-09-08] MEDS ORDERED: Penicillin test 1000 units/0.1 ml ID ONE (07:15)
[2018-09-08] MEDS ORDERED: Amoxicillin Susp 250 MG/5 ML MLS PO ONE (07:15)
[2018-09-08] MEDS ORDERED: Famotidine 20 MG/2 ML VIAL IVP PRN (07:15)
[2018-09-08] MEDS ORDERED: [UNRECOGNIZED DRUG - OTHER] TP ONE (07:15)
[2018-09-08] MEDS ORDERED: EPINEPHrine 1 MG/ML VIAL IM PRN (07:15)
[2018-09-08] MEDS ORDERED: [UNRECOGNIZED DRUG - OTHER] ID ONE (07:15)
[2018-09-08] MEDS ORDERED: [UNRECOGNIZED DRUG - OTHER] TP ONE (07:15)
[2018-09-08] MEDS ORDERED: methylPREDNISolone 125 MG/2 ML VIAL IVP PRN (07:15)
[2018-09-08] MEDS ORDERED: 0.9 % Sodium Chloride 10 ML PF VIAL TP ONE (07:15)
[2018-09-08] MEDS: Insulin LISPRO 300 UNITS/3 ML VIAL SQ SCH ×4 (08:08→20:41)
[2018-09-08] MEDS: Ringers Solution, Lactated 1,000 ML IVC SCH (10:54)
--- NOTE | 2018-09-08 11:56 | Internal Med Progress Note ---
Hospitalist Progress Note - Encounter Date of Encounter: 09/08/18 Time of Encounter: 09:57 - Subjective Interval History: Patient seen and examined this morning at bedside. No acute overnight events. Denies fever chills nausea vomiting or diarrhea. Denies any abdominal pain has mild suprapubic discomfort. Denies chest pain or shortness of breath. Headache or dizziness - Exam Vitals: Temp Pulse Resp BP Pulse Ox 97.7 F 66 16 124/70 97 09/08/18 10:41 09/08/18 10:41 09/08/18 10:41 09/08/18 10:41 09/08/18 10:41 Exam: Constitutional: Vitals as noted. Conversant. No Apparent Distress. Obesity Respiratory : CTAB. No accessory muscle use, rales, rhonchi or wheezes Cardiovascular : RRR, +S1, +S2. no murmur, gallop, rubs. No chest wall tenderness GI/Abdominal : Soft, Non-tender, Non-distended, Monson in place, erosive hypospadiasis. Musculoskeletal: no deformity noted. no edema. no calf tenderness. Neurological: AO X3, CN II-XII grossly intact, grossly normal motor and sensory exam. Skin: No skin rash, lesions or ulcers noted. - Assessment and Plan (1) Generalized weakness Current Visit: Yes Status: Acute (2) Hyperglycemia Current Visit: Yes Status: Acute (3) DVT prophylaxis Current Visit: No Status: Acute (4) Diastolic CHF, chronic Current Visit: No Status: Chronic (5) HLD (hyperlipidemia) Current Visit: No Status: Chronic (6) HTN (hypertension) Current Visit: No Status: Chronic (7) Obesity (BMI 30.0-34.9) Current Visit: No Status: Chronic (8) Hyponatremia Current Visit: No Status: Acute (9) Incontinence without sensory awareness Current Visit: Yes Status: Acute (10) UTI (urinary tract infection) Current Visit: Yes Status: Acute - Summary of Assessment and Plan Summary of Assessment and Plan: Assessment Acute Uncontrolled diabetes UTI GPC bacteremia likely enteroccocus Penicllin allergy Psuedohyponatremia Hypokalemia Chronic HTN CVA Urinary incontinence with chronic indwelling monson Recurrent UTI Diastolic CHF DM Plan - c/w Vancomycin for GPC bacteremia. Likely enterococcus based on PCR. f/u C&S. Penicillin allergy testing negative. Not in sepsis. Will stop IVF. Will likely switch to ampicillin depending on sensitivity. - Has chronic monson for incontinence with multiple complications. Urology consulted. Recommendation appreciated. To remove monson before discharge and make sure he is urinating . To use depends as needed per discussion with urology. No further recommendations. To f/u with urology as outpatient. - c/w SSI, accuchecks and 20 levemir . - SNF recommended by PT/OT - Time Spent with Patient Total time spent is greater than 50% in coordination of care (as documented) at patient's floor/unit and/or counseling patient: Internal Medicine: Result - Labs CBC & Chem 7: 09/08/18 04:54 09/08/18 04:54 Labs: Short CBC 09/08/18 Range/Units 04:54 WBC 7.7 (4.3-11.1) K/mcL Hgb 11.6 L D (12.9-16.9) g/dL Hct 33.6 L (37.5-50.1) % Plt Count 166 (140-400) K/mcL Neutrophils # 4.8 (1.6-8.9) K/mcL BMP 09/08/18 04:54 Sodium 133 L Potassium 3.7 Chloride 102 Carbon Dioxide 24 BUN 11 Creatinine 0.66 L Glucose 286 H Calcium 8.6 Consult Discharge Plan - Plan Referrals: Atilio Torrez DO [Primary Care Provider] - (5) HLD (hyperlipidemia) Qualifiers: Hyperlipidemia type: unspecified Qualified Code(s): E78.5 - Hyperlipidemia, unspecified (6) HTN (hypertension) Qualifiers: Hypertension type: essential hypertension Qualified Code(s): I10 - Essential (primary) hypertension (10) UTI (urinary tract infection) Qualifiers: Urinary tract infection type: site unspecified Hematuria presence: without hematuria Qualified Code(s): N39.0 - Urinary tract infection, site not specified
--- NOTE | 2018-09-08 11:58 | Allergy Procedure Note ---
Date of procedure: 09/08/18 Pre-op diagnosis: Adverse effect of penicillin, history of penicillin allergy Post-op diagnosis: other (Patient is not allergic to penicillin) Procedure: Procedure was explained to patient in detail. Written Consent was obtained. Step1 : 6 skin pricks were applied to LFA. This included 1 histamine (5mm x 10mm) 2. [place] (0mm x 3mm) 3. Two(2)pricks of Pen G (0mm x 3mm, 0mm x 3mm) 4. Two (2)pricks of PrePen (0mm x 3mm, 0mm x 3mm) Continued to monitor pt x 15 mins without change in assessment or c/o. I proceeded with intradermals. Intradermals : 1. Two (2) prepen intradermals were injected on left upper arm (5mm x 5mm, 5mm x 5mm) 2. Two (2) Pen G intradermals were injected on left upper arm (4mm x 4mm, 5mm x 5mm) After monitoring for 10 minutes with no reaction and no change, I proceeded with the oral challenge. Amoxicillin 50mg given po @ 0915. Continued to monitor x 15 mins without change in assessment or c/o. I proceeded with final dose of oral challenge. Amoxicillin 500mg given po @ 0930 . Continued to monitor x 60 mins without change in a ssessment or c/o. Patient's exam was unchanged from his pre-procedure exam. Anesthesia: none Was there an investigative assistant present: Yes Icing And Glaze Maker: Leonor Lopez Condition: stable
--- NOTE | 2018-09-08 12:04 | Allergy Consult Note ---
Date of Encounter: 09/08/18 Time of Encounter: 06:30 Assessment and Plan (1) Adverse effect of penicillins, initial encounter Current Visit: Yes Status: Acute Patient has history of penicillin allergy and he is a good candidate for allergy testing. I believe this should be done inpatient due to his current infection. Penicillin testing was discussed in detail. I explained we will first do skin pricks on the forearm with controls and different types of penicillin. If this is negative then we will do intradermals, which are a more sensitive skin test on the upper arms with the different penicillins. If that is negative then we will proceed to a graded oral challenge with amoxicillin. Patient will be given a 10% dose of amoxicillin and observed for 15 minutes. Then I will give a full dose of amoxicillin and observe them for 60 minutes. I explained that the risk of reaction with skin test and oral challenge are low but could include hives, rash, difficulty breathing, closure of airway, drop in blood pressure, and . All questions were answered. Qualifiers: Encounter type: initial encounter Qualified Code(s): T36.0X5A - Adverse effect of penicillins, initial encounter (2) Allergy status to penicillin Current Visit: Yes Status: Acute Penicillin testing done this morning. Patient's testing and challenge were negative. He is not allergic to penicillin. Please see procedure note. 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 Edwards is consulting to decided if Mr Khanna is still allergic to penicillin and if he is a good candidate for penicillin testing. Patient had rash and difficulty breathing after penicillin injection in the 60's. He required treatment at a hospital but does not remember what he was given. He has not had penicillin since then. He has uncontrolled diabetes and was admitted for UTI with bacteremia. Patient has an indwelling catheter. Past Med Surg Social Fam HX - Past Medical History Medical history: cancer, CHF, CVA, diabetes, hyperlipidemia, hypertension, TIA Additional medical history: breast CA Psychiatric history: depression - Past Surgical History Additional surgical history: right breast removed in 2001, breast cancer. right foot surgery and left hand surgery - Social History Smoking Status: Former smoker Smokeless Tobacco Status: No Alcohol use: none Drug use: none - Family History Father Living Status: Hx Family Cancer: Yes Hx Family Endocrine Disorder: Yes Mother Adopted: No Family Member Ethnicity: Non- Living Status: Hx Family Cardiac Disorders: No Hx Family Respiratory Disorders: No Hx Family Cancer: Yes Hx Family GI Disorders: No Hx Family Endocrine Disorder: No Hx Family Neuromuscular Disorders: No Hx Family Neurologic Disorders: No Hx Family HEENT Disorders: No Hx Family Autoimmune Disorders: No Medications and Allergies Atorvastatin [Lipitor] 40 mg PO HS 10/04/17 [History] Carvedilol [Coreg] 6.25 mg PO BIDWM 10/04/17 [History] Escitalopram [Lexapro] 10 mg PO DAILY 10/04/17 [History] Esomeprazole Magnesium [Nexium] 40 mg PO DAILY 10/04/17 [History] HYDROcodone/Acet 7.5/325 mg [[place] 7.5-325 mg] 1 tab PO Q6H PRN 10/04/17 [H istory] Losartan Potassium [Cozaar] 100 mg PO DAILY 10/04/17 [History] rOPINIRole [Requip] 0.25 mg PO HS 10/04/17 [History] Nitroglycerin 0.4 mg SL Q5MIN PRN 30 Days #28 tab.subl 10/06/17 [Rx] Amitriptyline [Elavil] 25 mg PO HS 07/18/18 [History] Insulin Glargine [Lantus] 20 unit SQ HS 07/18/18 [History] Insulin Human Regular [HumuLIN R] 11 unit SQ TIDAC 07/18/18 [History] Metformin HCl 1,000 mg PO BIDWM 07/18/18 [History] Furosemide [Lasix] 40 mg PO DAILY 09/06/18 [History] Potassium Chloride [Klor-Con 10] 10 meq PO DAILY 09/06/18 [History] Allergy/AdvReac Type Severity Reaction Status Date / Time shellfish derived Allergy Hives Verified 09/06/18 12:58 ROS Allergy - Constitutional Constitutional ROS: daytime sleepiness - EENT Nose, mouth and throat: no hoarseness, no throat swelling, no tongue swelling - Cardiovascular Cardiovascular ROS IM: no chest pain - Respiratory no cough - Gastrointestinal Gastrointestinal: dyspepsia - Genitourinary Genitourinary ROS: as per HPI - Musculoskeletal Musculoskeletal ROS: muscle weakness - Integumentary Integumentary: no rash - Neurological Neurological ROS: weakness - Allergic/Immunologic no tongue swelling, no throat swelling Allergy Exam Initial Vital Signs Temp Pulse Resp BP Pulse Ox 98.7 F 96 16 122/66 94 09/06/18 12:55 09/06/18 12:55 09/06/18 12:55 09/06/18 12:55 09/06/18 12:55 - General physical appearance well developed, well nourished, no distress - Eyes normal ocular movement - ENT normal nares, no congestion, dry mucosa - Neck no lymphadectomy - Respiratory normal expansion, normal respiratory effort, clear to auscultation - Abdomen Abdomen: tender - Integumentary no rash - Musculoskeletal normal posture - Additional Findings Heart-RRR Results - Labs 09/08/18 04:54 09/08/18 04:54 Abnormal lab results RBC 3.88 M/mcL (4.19-5.50) L 09/08/18 04:54 Hgb 11.6 g/dL (12.9-16.9) L D 09/08/18 04:54 Hct 33.6 % (37.5-50.1) L 09/08/18 04:54 9.0 K/mcL (1.6-8.9) H 09/06/18 13:25 VBG pCO2 35 mmHg (41-51) L 09/06/18 14:04 VBG pO2 54 mmHg (25-50) H 09/06/18 14:04 Sodium 133 mEq/L (136-145) L 09/08/18 04:54 Potassium 3.4 mEq/L (3.5-5.1) L 09/07/18 05:19 Chloride 97 mEq/L (98-107) L 09/06/18 13:25 Carbon Dioxide 20 mEq/L (23-29) L 09/07/18 05:19 BUN 27 mg/dL (8-23) H 09/06/18 13:25 0.66 mg/dL (0.70-1.30) L 09/08/18 04:54 28 (6-26) H 09/06/18 13:25 Glucose 286 mg/dL (70-105) H 09/08/18 04:54 POC Glucose 259 mg/dL (70-99) H 09/07/18 16:21 277 (280-300) L 09/07/18 05:19 Calcium 8.4 mg/dL (8.6-10.3) L 09/07/18 05:19 1.0 (1.1-2.2) L 09/06/18 13:25 Turbid (Clear) A 09/06/18 13:30 100 mg/dL (Neg-Trace) H 09/06/18 13:30 >=1000 mg/dL (Normal) H 09/06/18 13:30 Large (Negative) H 09/06/18 13:30 Ur Leukocyte Esterase Large (Negative) H 09/06/18 13:30 TNTC per hpf (0-3) H 09/06/18 13:30 Ur Squamous Epith Cells Many per lpf (None-Few) H 09/06/18 13:30 Many per hpf (None-Few) H 09/06/18 13:30 Present per hpf (None Seen) H 09/06/18 13:30 Ur Culture Indicated? YES (NO) A 09/06/18 13:30 Enterococcus sp PCR DETECTED (Not Detect) A 09/06/18 13:37 Diabetes panel 09/08/18 Range/Units 04:54 Sodium 133 L (136-145) mEq/L Potassium 3.7 (3.5-5.1) mEq/L Chloride 102 (98-107) mEq/L Carbon Dioxide 24 (23-29) mEq/L BUN 11 (8-23) mg/dL Creatinine 0.66 L (0.70-1.30) mg/dL Glucose 286 H (70-105) mg/dL Calcium 8.6 (8.6-10.3) mg/dL Calcium panel 09/08/18 Range/Units 04:54 Calcium 8.6 (8.6-10.3) mg/dL Pituitary panel 09/08/18 Range/Units 04:54 Sodium 133 L (136-145) mEq/L Potassium 3.7 (3.5-5.1) mEq/L Chloride 102 (98-107) mEq/L Carbon Dioxide 24 (23-29) mEq/L BUN 11 (8-23) mg/dL Creatinine 0.66 L (0.70-1.30) mg/dL Glucose 286 H (70-105) mg/dL Calcium 8.6 (8.6-10.3) mg/dL Adrenal panel 09/08/18 Range/Units 04:54 Sodium 133 L (136-145) mEq/L Potassium 3.7 (3.5-5.1) mEq/L Chloride 102 (98-107) mEq/L Carbon Dioxide 24 (23-29) mEq/L BUN 11 (8-23) mg/dL Creatinine 0.66 L (0.70-1.30) mg/dL Glucose 286 H (70-105) mg/dL Calcium 8.6 (8.6-10.3) mg/dL All other labs normal. Consult Discharge Plan - Plan Referrals: Atilio Torrez DO [Primary Care Provider] -
[2018-09-08] MEDS: rOPINIRole 0.25 MG TABLET PO SCH (20:39)
[2018-09-08] MEDS: Insulin DETEMIR 100 UNIT/ML X5UNITS SQ SCH (20:43)
[2018-09-09] MEDS: Insulin LISPRO 300 UNITS/3 ML VIAL SQ SCH ×4 (08:08→21:04)
--- NOTE | 2018-09-09 10:16 | Internal Med Progress Note ---
Hospitalist Progress Note - Encounter Date of Encounter: 09/09/18 Time of Encounter: 10:16 - Subjective Interval History: Patient seen and examined this morning at bedside. No acute overnight events. Denies new complaints. No fevers chills nausea vomiting or diarrhea. Monson in place. - Exam Vitals: Temp Pulse Resp BP Pulse Ox 98.2 F 76 20 115/65 97 09/09/18 07:28 09/09/18 07:28 09/09/18 07:28 09/09/18 05:06 09/09/18 08:12 Exam: Constitutional: Vitals as noted. Conversant. No Apparent Distress. Obesity Respiratory : CTAB. No accessory muscle use, rales, rhonchi or wheezes Cardiovascular : RRR, +S1, +S2. no murmur, gallop, rubs. No chest wall tenderness GI/Abdominal : Soft, Non-tender, Non-distended, Monson in place, erosive hypospadiasis. Musculoskeletal: no deformity noted. no edema. no calf tenderness. Neurological: AO X3, CN II-XII grossly intact, grossly normal motor and sensory exam. Skin: No skin rash, lesions or ulcers noted. - Assessment and Plan (1) Generalized weakness Current Visit: Yes Status: Acute (2) Hyperglycemia Current Visit: Yes Status: Acute (3) DVT prophylaxis Current Visit: No Status: Acute (4) Diastolic CHF, chronic Current Visit: No Status: Chronic (5) HLD (hyperlipidemia) Current Visit: No Status: Chronic (6) HTN (hypertension) Current Visit: No Status: Chronic (7) Obesity (BMI 30.0-34.9) Current Visit: No Status: Chronic (8) Hyponatremia Current Visit: No Status: Acute (9) Incontinence without sensory awareness Current Visit: Yes Status: Acute (10) UTI (urinary tract infection) Current Visit: Yes Status: Acute - Summary of Assessment and Plan Summary of Assessment and Plan: Assessment Acute Uncontrolled diabetes UTI GPC bacteremia from enteroccocus No allergy Penicllin Psuedohyponatremia Hypokalemia Chronic HTN CVA Urinary incontinence with chronic indwelling monson Recurrent UTI Diastolic CHF DM Plan - Will switch Vancomycin to ampicillin. He is not allergic to penicillins. Not in sepsis. Will stop IVF. - Has chronic monson for incontinence with multiple complications. Urology consulted. Recommendation appreciated. Will remove monson and use depends as needed and to f/u with urology as outpatient. - c/w SSI, accuchecks and increase levemir to 25 - SNF recommended by PT/OT - Time Spent with Patient Total time spent is greater than 50% in coordination of care (as documented) at patient's floor/unit and/or counseling patient: Internal Medicine: Result - Labs CBC & Chem 7: 09/08/18 04:54 09/08/18 04:54 Consult Discharge Plan - Plan Referrals: Atilio Torrez DO [Primary Care Provider] - (5) HLD (hyperlipidemia) Qualifiers: Hyperlipidemia type: unspecified Qualified Code(s): E78.5 - Hyperlipidemia, unspecified (6) HTN (hypertension) Qualifiers: Hypertension type: essential hypertension Qualified Code(s): I10 - Essential (primary) hypertension (10) UTI (urinary tract infection) Qualifiers: Urinary tract infection type: site unspecified Hematuria presence: without hematuria Qualified Code(s): N39.0 - Urinary tract infection, site not specified
[2018-09-09] MEDS: Ampicillin 2 GM in 0.9 % Sodium Chloride Mini Bag 100 ML IVPB SCH ×5 (10:36→23:56)
[2018-09-09] MEDS ORDERED: Aminoglycoside Consult 1 EACH MC ONE (11:04)
[2018-09-09] MEDS: rOPINIRole 0.25 MG TABLET PO SCH (21:03)
[2018-09-09] MEDS: Insulin DETEMIR 100 UNIT/ML X5UNITS SQ SCH (21:03)
[2018-09-10] MEDS: Ampicillin 2 GM in 0.9 % Sodium Chloride Mini Bag 100 ML IVPB SCH ×2 (03:45→08:08)
[2018-09-10] MEDS ORDERED: Ondansetron 4 MG/2 ML VIAL IVP PRN (05:38)
[2018-09-10] MEDS ORDERED: Ondansetron 4 MG/2 ML VIAL ONE (05:41)
[2018-09-10] MEDS: *HR* HYDROcodone/Acet 7.5/325 mg TABLET PO PRN (06:16)
[2018-09-10 07:30] VITALS: BP 103/66
[2018-09-10] MEDS: Insulin LISPRO 300 UNITS/3 ML VIAL SQ SCH (08:08)
--- NOTE | 2018-09-10 09:20 | Discharge Summary ---
- NOTES TO OUTPATIENT PROVIDER Notes to Outpatient Provider: Patient will need to follow with urology as outpatient. Patient to finish 10 more days of antibiotics . Home antihypertensive medication held given blood pressure on the lower end. Consider restarting as able to tolerate. Orders not resulted at time of discharge: Pending orders 09/07/18 13:00 Culture,Blood [BC] Routine 09/10/18 04:00 Basic Metabolic Panel AM 0400 Complete Blood Count [HEME] AM 0400 Date of Encounter: 09/10/18 Time of Encounter: 09:06 - Discharge Diagnosis (1) Generalized weakness Priority: Primary Status: Acute (2) Hyperglycemia Priority: Primary Status: Acute (3) DVT prophylaxis Priority: Secondary Status: Acute (4) Diastolic CHF, chronic Priority: Secondary Status: Chronic (5) HLD (hyperlipidemia) Priority: Secondary Status: Chronic Qualifiers: Hyperlipidemia type: unspecified Qualified Code(s): E78.5 - Hyperlipidemia, unspecified (6) HTN (hypertension) Priority: Secondary Status: Chronic Qualifiers: Hypertension type: essential hypertension Qualified Code(s): I10 - Essential (primary) hypertension (7) Obesity (BMI 30.0-34.9) Priority: Secondary Status: Chronic (8) Hyponatremia Priority: Primary Status: Acute (9) Incontinence without sensory awareness Priority: Primary Status: Acute (10) UTI (urinary tract infection) Priority: Primary Status: Acute Qualifiers: Urinary tract infection type: site unspecified Hematuria presence: without hematuria Qualified Code(s): N39.0 - Urinary tract infection, site not specified (11) Bacteremia due to Enterococcus Priority: Secondary Status: Acute Hospital course: Mr. Khanna is a 72 year old male with past medical history of diabetes, hypertension, CVA, chronic Monson due to urinary incontinence, diastolic CHF who recently had in treated for UTI related complication came in with complain of weakness and uncontrolled blood sugar and difficulty forming family did not take care of him at home. Patient was started on vancomycin as patient's blood culture grew gram-positive organisms. Patient's home antihypertensives were held. Patient's catheter was exchanged in the ER. Urology was consulted due to multiple history of complications. Patient blood culture grew Enterococcus faecalis pansensitive. Urology recommended removing Monson given complications related to catheter and uses depends as needed. Patient was related by physical therapy recommended SNF placement. Patient was able to urinate and is expected was incontinent. Patient otherwise stable to be discharged however blood pressure is on the lower end. We will hold home antihypertensive medications for now including carvedilol and losartan. Patient would be discharged on amoxicillin for 10 more days to finish 14 day course. Discharge discussed with: patient, family, nurse, social work - Time Spent with Patient Total time spent providing and/or coordinating discharge services: Time spent: Greater than 30 minutes (40) - Discharge Medications Prescriptions: New Amoxicillin [Amoxil] 500 mg PO TID 10 Days #30 capsule Continued rOPINIRole [Requip] 0.25 mg PO HS Esomeprazole Magnesium [Nexium] 40 mg PO DAILY Atorvastatin [Lipitor] 40 mg PO HS Escitalopram [Lexapro] 10 mg PO DAILY Nitroglycerin 0.4 mg SL Q5MIN PRN 30 Days #28 tab.subl PRN Reason: Chest Pain Amitriptyline [Elavil] 25 mg PO HS Insulin Glargine [Lantus] 20 unit SQ HS Insulin Human Regular [HumuLIN R] 11 unit SQ TIDAC Metformin HCl 1,000 mg PO BIDWM Furosemide [Lasix] 40 mg PO DAILY Potassium Chloride [Klor-Con 10] 10 meq PO DAILY HYDROcodone/Acet 7.5/325 mg [Berkey 7.5-325 mg] 1 tab PO Q6H PRN 3 Days #9 tablet PRN Reason: Pain Discontinued Losartan Potassium [Cozaar] 100 mg PO DAILY Carvedilol [Coreg] 6.25 mg PO BIDWM Home Medications: Atorvastatin [Lipitor] 40 mg PO HS 10/04/17 [History] Escitalopram [Lexapro] 10 mg PO DAILY 10/04/17 [History] Esomeprazole Magnesium [Nexium] 40 mg PO DAILY 10/04/17 [History] rOPINIRole [Requip] 0.25 mg PO HS 10/04/17 [History] Nitroglycerin 0.4 mg SL Q5MIN PRN 30 Days #28 tab.subl 10/06/17 [Rx] Amitriptyline [Elavil] 25 mg PO HS 07/18/18 [History] Insulin Glargine [Lantus] 20 unit SQ HS 07/18/18 [History] Insulin Human Regular [HumuLIN R] 11 unit SQ TIDAC 07/18/18 [History] Metformin HCl 1,000 mg PO BIDWM 07/18/18 [History] Furosemide [Lasix] 40 mg PO DAILY 09/06/18 [History] Potassium Chloride [Klor-Con 10] 10 meq PO DAILY 09/06/18 [History] Amoxicillin [Amoxil] 500 mg PO TID 10 Days #30 capsule 09/10/18 [Rx] HYDROcodone/Acet 7.5/325 mg [Berkey 7.5-325 mg] 1 tab PO Q6H PRN 3 Days #9 tablet 09/10/18 [Rx] Allergies/Adverse Reactions: Allergy/AdvReac Type Severity Reaction Status Date / Time shellfish derived Allergy Hives Verified 09/06/18 12:58 Date of admission: 09/06/18 17:13 Primary care physician: Atilio Torrez Consults: 09/06/18 16:48 Consult to Occupational Therapy [CONS] Routine Comment: Evaluate, develop and implement POC Reason for Consult: improved mobility, fall Does patient have active BEDREST order?: No Is patient medically & hemodynamically stable?: Yes Consult to Physical Therapy [CONS] Routine Comment: Evaluate, develop and implement POC Reason for Consult: improved mobility, fall Does patient have active BEDREST order?: No Is patient medically & hemodynamically stable?: Yes Consult to Urology [CONS] Routine Consulting Provider: Urology [facility] Reason for Consult: chronic monson for incontinence Call Completed: Yes 09/06/18 17:20 Consult to Granulating Blender [CONS] Routine Reason for SW Consult: per family, needs consult for snf placement, wants [facility] 09/06/18 17:34 Consult to Granulating Blender [CONS] Routine Reason for SW Consult: placement 09/07/18 07:50 Consult to Allergy/Immunology [CONS] Routine Consulting Provider: [facility] [place] Reason for Consult: Pt with enteroccous infection and may benefit from ampicillin pending C/S. Listed PCN rx with rx "hives". Tolerated cephalsporins in past. Call Completed: Yes Discharging clinician: Dread Edwards - Constitutional Vitals: Temp Pulse Resp BP Pulse Ox 97.6 F 78 20 103/66 93 09/10/18 07:17 09/10/18 07:17 09/10/18 07:17 09/10/18 07:17 09/10/18 07:17 Exam: Constitutional: Vitals as noted. Conversant. No Apparent Distress. Obesity Respiratory : CTAB. No accessory muscle use, rales, rhonchi or wheezes Cardiovascular : RRR, +S1, +S2. no murmur, gallop, rubs. No chest wall tenderness GI/Abdominal : Soft, Non-tender, Non-distended, Musculoskeletal: no deformity noted. trace edema. no calf tenderness. Neurological: AO X3, CN II-XII grossly intact, grossly normal motor and sensory exam. - Patient Status Disposition: Transfer SNF Condition: Fair - Discharge Instructions Follow Up With: Atilio Torrez DO [Primary Care Provider] - - Diet and Activity Activity: as per physical therapy
--- NOTE | 2018-09-10 09:27 | Physician Discharge Referral ---
ExtendedCare Referral Info Institutional Level of Care: Skilled - Diagnosis (1) Generalized weakness Status: Acute (2) Hyperglycemia Status: Acute (3) DVT prophylaxis Status: Acute (4) Diastolic CHF, chronic Status: Chronic (5) HLD (hyperlipidemia) Status: Chronic (6) HTN (hypertension) Status: Chronic (7) Obesity (BMI 30.0-34.9) Status: Chronic (8) Hyponatremia Status: Acute (9) Incontinence without sensory awareness Status: Acute (10) UTI (urinary tract infection) Status: Acute (11) Bacteremia due to Enterococcus Status: Acute - Transfer Medications Prescriptions: Amoxicillin [Amoxil] 500 mg PO TID 10 Days #30 capsule HYDROcodone/Acet 7.5/325 mg [Garibaldi 7.5-325 mg] 1 tab PO Q6H PRN 3 Days #9 tablet PRN Reason: Pain Home Medications: Atorvastatin [Lipitor] 40 mg PO HS 10/04/17 [History] Escitalopram [Lexapro] 10 mg PO DAILY 10/04/17 [History] Esomeprazole Magnesium [Nexium] 40 mg PO DAILY 10/04/17 [History] rOPINIRole [Requip] 0.25 mg PO HS 10/04/17 [History] Nitroglycerin 0.4 mg SL Q5MIN PRN 30 Days #28 tab.subl 10/06/17 [Rx] Amitriptyline [Elavil] 25 mg PO HS 07/18/18 [History] Insulin Glargine [Lantus] 20 unit SQ HS 07/18/18 [History] Insulin Human Regular [HumuLIN R] 11 unit SQ TIDAC 07/18/18 [History] Metformin HCl 1,000 mg PO BIDWM 07/18/18 [History] Furosemide [Lasix] 40 mg PO DAILY 09/06/18 [History] Potassium Chloride [Klor-Con 10] 10 meq PO DAILY 09/06/18 [History] Amoxicillin [Amoxil] 500 mg PO TID 10 Days #30 capsule 09/10/18 [Rx] HYDROcodone/Acet 7.5/325 mg [Garibaldi 7.5-325 mg] 1 tab PO Q6H PRN 3 Days #9 tablet 09/10/18 [Rx] Allergies/Adverse Reactions: Allergy/AdvReac Type Severity Reaction Status Date / Time shellfish derived Allergy Hives Verified 09/06/18 12:58 - Respiratory Orders Smoking Cessation: Smoking cessation has been advised. For more information, call the [place] Tobacco Quit Line at 4-373-EBEW-NOW. CERTIFICATION: I certify that the transfer of the above named patient to an Extended Care Facility is necessary for the continuing treatment of the diagnosis listed. The above information is true and accurate reflection of patient's current condition. Confidential - Redisclosure prohibited without a patient's written consent.
[2018-09-10 10:31] LABS: Basophils % 0.3 %; Eosinophils # 0.2 K/mcL (0.0-0.6); Eosinophils % 2.1 %; Hematocrit 37.4 % (37.5-50.1); Hemoglobin 12.5 g/dL (12.9-16.9); Immature Granulocytes % 0.6 % (0-4); Lymphocytes # 1.6 K/mcL (0.6-4.6); Lymphocytes % 14.9 %; Mean Corpuscular HGB Conc 33.4 g/dL (31.6-35.5); Mean Corpuscular Hemoglobin 29.5 pg (28.0-33.3); Mean Corpuscular Volume 88.2 fL (83.0-100.0); Mean Platelet Volume 10.1 fL (9.4-12.4); Monocytes # 0.6 K/mcL (0.0-1.3); Monocytes % 5.8 %; Platelet Count 213 K/mcL (140-400); Red Blood Count 4.24 M/mcL (4.19-5.50); Red Cell Distribution Width 12.5 % (11.5-14.5); Segmented Neutrophils % 76.3 %
[2018-09-10 10:38] LABS: BUN/Creatinine Ratio 15 (6-26); Blood Urea Nitrogen 11 mg/dL (8-23); Calcium 8.4 mg/dL (8.6-10.3); Carbon Dioxide 26 mEq/L (23-29); Chloride 99 mEq/L (98-107); Glucose 293 mg/dL (70-105); Osmolality,Calculated 290 (280-300); Potassium 3.9 mEq/L (3.5-5.1); Sodium 135 mEq/L (136-145); eGFR For Non-African Americans > 60 (> 60)
== END 2018-09-10 11:05 | DRG 699 ==
LOC: EMEROOARM 12:45 → 2ANU 12:45 → SUATTDRO 17:13
PROVIDERS: ADMIT Internal Medicine Nephrology; ATTEND Internal Medicine

== ENCOUNTER 2018-09-15 01:28 | Inpatient (IN) ==
--- NOTE | 2018-09-15 02:32 | Emergency Department Note ---
Disposition Clinical Impression: Hospital acquired PNA, Hypoxia, Acute kidney injury Diabetes mellitus Qualifiers: Diabetes mellitus type: type 2 Diabetes mellitus chcf insulin use: unspecified superintendent container terminal insulin use status Diabetes mellitus complication status: with unspecified complications Qualified Code(s): E11.8 - Type 2 diabetes mellitus with unspecified complications HTN (hypertension) Qualifiers: Hypertension type: essential hypertension Qualified Code(s): I10 - Essential (primary) hypertension Disposition: Admitted As Inpatient Condition: Fair Time of Disposition: 04:19 General Adult HPI - General Stated complaint: fever/weakness Time Seen by Provider: 09/15/18 01:42 Source: EMS Limitations: age Nursing Notes Reviewed: Yes Vital Signs Reviewed: Yes - History of Present Illness HPI Narrative: 72-year-old male with history of CVA, CHF, diabetes who presents the emergency department with complaints of fever and weakness over the last 2 days. Patient has been recently admitted and was found to have bacteremia secondary to urinary tract infection. He was sent home on amoxicillin for a ten-day course which she continues. Over the last 24 hours family has noted that he felt hot and his mental state is not at his baseline. The patient denies any pain but answers no to every question asked and am unsure if this is truly negative. Pain Scale: 0 - Related Data Home Medications Medication Instructions Recorded Confirmed Atorvastatin [Lipitor] 40 mg PO HS 10/04/17 09/06/18 Escitalopram [Lexapro] 10 mg PO DAILY 10/04/17 09/06/18 Esomeprazole Magnesium [Nexium] 40 mg PO DAILY 10/04/17 09/06/18 rOPINIRole [Requip] 0.25 mg PO HS 10/04/17 09/06/18 Amitriptyline [Elavil] 25 mg PO HS 07/18/18 09/06/18 Insulin Glargine [Lantus] 20 unit SQ HS 07/18/18 09/06/18 Insulin Human Regular [HumuLIN R] 11 unit SQ TIDAC 07/18/18 09/06/18 Metformin HCl 1,000 mg PO BIDWM 07/18/18 09/06/18 Furosemide [Lasix] 40 mg PO DAILY 09/06/18 09/06/18 Potassium Chloride [Klor-Con 10] 10 meq PO DAILY 09/06/18 09/06/18 Previous Rx's Medication Instructions Recorded Nitroglycerin 0.4 mg SL Q5MIN PRN 30 Days #28 10/06/17 tab.subl Amoxicillin [Amoxil] 500 mg PO TID 10 Days #30 capsule 09/10/18 Allergies Allergy/AdvReac Type Severity Reaction Status Date / Time shellfish derived Allergy Hives Verified 09/06/18 12:58 Review of Systems: ROS per history of present illness, all other systems reviewed and negative or normal. All systems ED: reviewed and negative except as stated. Review of Systems: As Per HPI Past Medical History - Past Medical History Medical history: Reports: cancer, CHF, CVA, diabetes, hyperlipidemia, hypertension, TIA Psychiatric history: Reports: depression - Social History Smoking Status: Former smoker Smokeless Tobacco Status: No Alcohol use: Reports: none Drug use: Reports: none Physical Exam General: Conversant. No apparent distress. Appears stated age. Requires frequent prompting to awaken him and answer questions. Neck: No JVD. Trachea midline. Neck supple. Eyes: PERRL. No scleral icterus. HENT: Normocephalic and atraumatic. Moist mucus membranes. Cardiovascular: Regular rate and rhythm. Normal S1 and S2. No murmurs appreciated. Normal capillary refill. Extremities well perfused with 2+ distal pulses bilaterally. No edema. Pulmonary: Normal and equal breath sounds bilaterally, anteriorly and posterior ly. No wheezes, rales, or rhonchi. Not in respiratory distress but is now requiring oxygen. Speaks in full sentences. Abdomen: Soft, nondistended, and tontender. No bruits or masses. No guarding. Neuro: Alert and oriented x3. No slurred speech. No focal deficits noted Skin: No rashes noted on visualized skin. Musculoskeletal: No bony abnormalities visualized. Moves all extremities. Psych: Normal mood. Pleasant. Makes appropriate eye contact. - General Limitations: age General appearance: alert, in no apparent distress Course Vital Signs Temperature 99.7 F H 09/15/18 01:36 Pulse Rate 102 09/15/18 01:36 Respiratory Rate 20 09/15/18 01:36 Blood Pressure 106/62 09/15/18 01:36 O2 Sat by Pulse Oximetry 92 09/15/18 01:36 Temperature 99.7 F H 09/15/18 01:36 Pulse Rate 102 09/15/18 01:36 Respiratory Rate 20 09/15/18 01:36 Blood Pressure 106/62 09/15/18 01:36 O2 Sat by Pulse Oximetry 92 09/15/18 01:36 Oxygen Delivery Oxygen Delivery Nasal Cannula Medical Decision Making - [facility] Narrative Medical decision making narrative: 72-year-old male who presents from nursing facility due to fever and generalized weakness. On arrival the patient is alert and oriented 3 but answers all his questions with yes and therefore unable to obtain a reliable history. Family states he has been warm and more fatigued than usual recently. Patient has had decreased oxygen saturations here in the emergency department now requiring oxygen. Patient's labs show leukocytosis Which is new from only a few days ago. Otherwise the patient does have acute kidney injury up to 1.48 creatinine and he does not have baseline CKD. Otherwise chest x-ray shows possible atelectasis versus pneumonia. Given the patient's recent hospitalization, fever and the requirement of oxygen to believe he warrants treatment for pneumonia. Given recent hospitalization we will start the patient on vancomycin, Zosyn and azithromycin for coverage of hospital acquired pneumonia. Discussed case with on-call hospitalist Dr. Mason who agrees with plan for admission and accepts the patient to the inpatient service. Patient agrees with and understands course of treatment plan including plan for admission. All questions answered. - Medical Records Medical records reviewed: Yes I reviewed the patient's medical records. - Lab Data Lab results reviewed: Yes I reviewed the patient's lab results. Result diagrams: 09/15/18 02:21 09/15/18 02:21 Lab Results 09/15/18 09/15/18 09/15/18 Range/Units 02:21 02:21 02:21 WBC 13.4 H (4.3-11.1) K/mcL RBC 4.03 L (4.19-5.50) M/mcL Hgb 11.7 L (12.9-16.9) g/dL Hct 34.3 L (37.5-50.1) % MCV 85.1 (83.0-100.0) fL MCH 29.0 (28.0-33.3) pg MCHC 34.1 (31.6-35.5) g/dL RDW 12.6 (11.5-14.5) % Plt Count 218 (140-400) K/mcL MPV 9.7 (9.4-12.4) fL Immature Gran % 0.5 (0-4) % Seg Neutrophils % 91.0 % Lymphocytes % 4.3 % Monocytes % 4.0 % Eosinophils % 0.1 % Basophils % 0.1 % Neutrophils # 12.2 H (1.6-8.9) K/mcL Lymphocytes # 0.6 (0.6-4.6) K/mcL Monocytes # 0.5 (0.0-1.3) K/mcL Eosinophils # 0.0 (0.0-0.6) K/mcL Basophils # 0.0 (0.0-0.2) K/mcL APTT 29.2 (26.0-36.0) Seconds Sodium 130 L (136-145) mEq/L Potassium 3.6 (3.5-5.1) mEq/L Chloride 99 (98-107) mEq/L Carbon Dioxide 20 L (23-29) mEq/L BUN 32 H (8-23) mg/dL Creatinine 1.48 H (0.70-1.30) mg/dL Est GFR ( Amer) 56 L (> 60) Est GFR (Non-Af Amer) 46 L (> 60) BUN/Creatinine Ratio 22 (6-26) Glucose 237 H (70-105) mg/dL Calculated Osmolality 285 (280-300) Lactic Acid (0.5-2.2) mmol/L Calcium 8.8 (8.6-10.3) mg/dL Magnesium 1.2 L (1.6-2.6) mg/dL Total Bilirubin 0.8 (0.3-1.0) mg/dL Direct Bilirubin 0.2 (0.0-0.2) mg/dL Indirect Bilirubin 0.6 (0.0-1.2) mg/dL AST 11 L (13-39) Units/L ALT 11 (7-52) Units/L Alkaline Phosphatase 91 (34-104) Units/L Ammonia (16-53) mcmol/L Troponin I 0.03 (< 0.04) ng/mL Serum Total Protein 6.7 (6.4-8.9) g/dL Albumin 3.1 L (3.5-5.7) g/dL Globulin 3.6 H (2.4-3.5) g/dL Albumin/Globulin Ratio 0.9 L (1.1-2.2) Lipase 4 L (11-82) Units/L TSH 1.026 (0.340-5.600) mcIU/mL 09/15/18 09/15/18 Range/Units 02:21 02:21 WBC (4.3-11.1) K/mcL RBC (4.19-5.50) M/mcL Hgb (12.9-16.9) g/dL Hct (37.5-50.1) % MCV (83.0-100.0) fL MCH (28.0-33.3) pg MCHC (31.6-35.5) g/dL RDW (11.5-14.5) % Plt Count (140-400) K/mcL MPV (9.4-12.4) fL Immature Gran % (0-4) % Seg Neutrophils % % Lymphocytes % % Monocytes % % Eosinophils % % Basophils % % Neutrophils # (1.6-8.9) K/mcL Lymphocytes # (0.6-4.6) K/mcL Monocytes # (0.0-1.3) K/mcL Eosinophils # (0.0-0.6) K/mcL Basophils # (0.0-0.2) K/mcL APTT (26.0-36.0) Seconds Sodium (136-145) mEq/L Potassium (3.5-5.1) mEq/L Chloride (98-107) mEq/L Carbon Dioxide (23-29) mEq/L BUN (8-23) mg/dL Creatinine (0.70-1.30) mg/dL Est GFR ( Amer) (> 60) Est GFR (Non-Af Amer) (> 60) BUN/Creatinine Ratio (6-26) Glucose (70-105) mg/dL Calculated Osmolality (280-300) Lactic Acid 1.1 (0.5-2.2) mmol/L Calcium (8.6-10.3) mg/dL Magnesium (1.6-2.6) mg/dL Total Bilirubin (0.3-1.0) mg/dL Direct Bilirubin (0.0-0.2) mg/dL Indirect Bilirubin (0.0-1.2) mg/dL AST (13-39) Units/L ALT (7-52) Units/L Alkaline Phosphatase (34-104) Units/L Ammonia 36 (16-53) mcmol/L Troponin I (< 0.04) ng/mL Serum Total Protein (6.4-8.9) g/dL Albumin (3.5-5.7) g/dL Globulin (2.4-3.5) g/dL Albumin/Globulin Ratio (1.1-2.2) Lipase (11-82) Units/L TSH (0.340-5.600) mcIU/mL - Radiology Data Radiology results reviewed: Yes I reviewed the patient's radiology results. Chest X-Ray 09/15/18 01:51 IMPRESSION: Fluctuating bibasilar opacities or most consistent with atelectasis. Superimposed infection could be present in the appropriate context. D/ / Gabino Bullard / Gabino Bullard Interpreting Provider: Gabino Bullard - EKG Data EKG #1 EKG attestation: Yes I reviewed and interpreted this EKG. EKG results narrative: Sinus tachycardia rate of 102. Normal intervals. Slight left axis. Right bundle branch block which is unchanged from prior on 09/06/18. Attestation Statement - Attestation Attestation: I personally supervised and was present for the mcknight/critical portions of the following procedures completed by the resident: EKG interpretation.
[2018-09-15 02:48] LABS: Basophils % 0.1 %; Eosinophils % 0.1 %; Hematocrit 34.3 % (37.5-50.1); Hemoglobin 11.7 g/dL (12.9-16.9); Immature Granulocytes % 0.5 % (0-4); Lymphocytes # 0.6 K/mcL (0.6-4.6); Lymphocytes % 4.3 %; Mean Corpuscular HGB Conc 34.1 g/dL (31.6-35.5); Mean Corpuscular Volume 85.1 fL (83.0-100.0); Mean Platelet Volume 9.7 fL (9.4-12.4); Monocytes # 0.5 K/mcL (0.0-1.3); Neutrophils # 12.2 K/mcL (1.6-8.9); Platelet Count 218 K/mcL (140-400); Red Blood Count 4.03 M/mcL (4.19-5.50); Red Cell Distribution Width 12.6 % (11.5-14.5); White Blood Count 13.4 K/mcL (4.3-11.1)
[2018-09-15 02:56] LABS: Albumin 3.1 g/dL (3.5-5.7); Albumin/Globulin Ratio 0.9 (1.1-2.2); Bilirubin,Direct 0.2 mg/dL (0.0-0.2); Bilirubin,Indirect 0.6 mg/dL (0.0-1.2); Bilirubin,Total 0.8 mg/dL (0.3-1.0); Calcium 8.8 mg/dL (8.6-10.3); Globulin 3.6 g/dL (2.4-3.5); Magnesium 1.2 mg/dL (1.6-2.6); Potassium 3.6 mEq/L (3.5-5.1); Total Protein 6.7 g/dL (6.4-8.9); Troponin I 0.03 ng/mL (< 0.04)
[2018-09-15 03:10] LABS: Thyroid Stimulating Hormone 1.026 mcIU/mL (0.340-5.600)
[2018-09-15] MEDS ORDERED: 0.9 % Sodium Chloride 1,000 ML IVC STA (03:47)
[2018-09-15] MEDS ORDERED: Piperacillin/Tazobactam 3.375 GM in 0.9 % Sodium Chloride Mini Bag 100 ML IVPB ONE (03:47)
[2018-09-15] MEDS ORDERED: Azithromycin 500 MG in D5% in Water 250 ML IVPB STA (03:47)
--- NOTE | 2018-09-15 04:23 | Emergency Department Note ---
Disposition Clinical Impression: Hospital acquired PNA, Hypoxia, Acute kidney injury Diabetes mellitus Qualifiers: Diabetes mellitus type: type 2 Diabetes mellitus alf insulin use: unspecified long term care administrator insulin use status Diabetes mellitus complication status: with unspecified complications Qualified Code(s): E11.8 - Type 2 diabetes mellitus with unspecified complications HTN (hypertension) Qualifiers: Hypertension type: essential hypertension Qualified Code(s): I10 - Essential (primary) hypertension Disposition: Admitted As Inpatient Condition: Fair Time of Disposition: 04:19 General Adult HPI - General Chief complaint: ED Fever Stated complaint: fever/weakness Time Seen by Provider: 09/15/18 01:42 Source: EMS Limitations: age Nursing Notes Reviewed: Yes Vital Signs Reviewed: Yes - History of Present Illness Pain Scale: 0 - Related Data Home Medications Medication Instructions Recorded Confirmed Atorvastatin [Lipitor] 40 mg PO HS 10/04/17 09/06/18 Escitalopram [Lexapro] 10 mg PO DAILY 10/04/17 09/06/18 Esomeprazole Magnesium [Nexium] 40 mg PO DAILY 10/04/17 09/06/18 rOPINIRole [Requip] 0.25 mg PO HS 10/04/17 09/06/18 Amitriptyline [Elavil] 25 mg PO HS 07/18/18 09/06/18 Insulin Glargine [Lantus] 20 unit SQ HS 07/18/18 09/06/18 Insulin Human Regular [HumuLIN R] 11 unit SQ TIDAC 07/18/18 09/06/18 Metformin HCl 1,000 mg PO BIDWM 07/18/18 09/06/18 Furosemide [Lasix] 40 mg PO DAILY 09/06/18 09/06/18 Potassium Chloride [Klor-Con 10] 10 meq PO DAILY 09/06/18 09/06/18 Previous Rx's Medication Instructions Recorded Nitroglycerin 0.4 mg SL Q5MIN PRN 30 Days #28 10/06/17 tab.subl Amoxicillin [Amoxil] 500 mg PO TID 10 Days #30 capsule 09/10/18 Allergies Allergy/AdvReac Type Severity Reaction Status Date / Time shellfish derived Allergy Hives Verified 09/06/18 12:58 Past Medical History - Past Medical History Medical history: Reports: cancer, CHF, CVA, diabetes, hyperlipidemia, hypert ension, TIA Psychiatric history: Reports: depression - Social History Smoking Status: Former smoker Smokeless Tobacco Status: No Alcohol use: Reports: none Drug use: Reports: none Physical Exam - General Limitations: age General appearance: alert, in no apparent distress Course Vital Signs Temperature 99.7 F H 09/15/18 01:36 Pulse Rate 102 09/15/18 01:36 Respiratory Rate 20 09/15/18 01:36 Blood Pressure 106/62 09/15/18 01:36 O2 Sat by Pulse Oximetry 92 09/15/18 01:36 Temperature 99.7 F H 09/15/18 01:36 Pulse Rate 102 09/15/18 01:36 Respiratory Rate 20 09/15/18 01:36 Blood Pressure 106/62 09/15/18 01:36 O2 Sat by Pulse Oximetry 92 09/15/18 01:36 Oxygen Delivery Oxygen Delivery Nasal Cannula Medical Decision Making - Medical Records Medical records reviewed: Yes I reviewed the patient's medical records. - Lab Data Lab results reviewed: Yes I reviewed the patient's lab results. Result diagrams: 09/15/18 02:21 09/15/18 02:21 Lab Results 09/15/18 09/15/18 09/15/18 Range/Units 02:21 02:21 02:21 WBC 13.4 H (4.3-11.1) K/mcL RBC 4.03 L (4.19-5.50) M/mcL Hgb 11.7 L (12.9-16.9) g/dL Hct 34.3 L (37.5-50.1) % MCV 85.1 (83.0-100.0) fL MCH 29.0 (28.0-33.3) pg MCHC 34.1 (31.6-35.5) g/dL RDW 12.6 (11.5-14.5) % Plt Count 218 (140-400) K/mcL MPV 9.7 (9.4-12.4) fL Immature Gran % 0.5 (0-4) % Seg Neutrophils % 91.0 % Lymphocytes % 4.3 % Monocytes % 4.0 % Eosinophils % 0.1 % Basophils % 0.1 % Neutrophils # 12.2 H (1.6-8.9) K/mcL Lymphocytes # 0.6 (0.6-4.6) K/mcL Monocytes # 0.5 (0.0-1.3) K/mcL Eosinophils # 0.0 (0.0-0.6) K/mcL Basophils # 0.0 (0.0-0.2) K/mcL APTT 29.2 (26.0-36.0) Seconds Sodium 130 L (136-145) mEq/L Potassium 3.6 (3.5-5.1) mEq/L Chloride 99 (98-107) mEq/L Carbon Dioxide 20 L (23-29) mEq/L BUN 32 H (8-23) mg/dL Creatinine 1.48 H (0.70-1.30) mg/dL Est GFR ( Amer) 56 L (> 60) Est GFR (Non-Af Amer) 46 L (> 60) BUN/Creatinine Ratio 22 (6-26) Glucose 237 H (70-105) mg/dL Calculated Osmolality 285 (280-300) Lactic Acid (0.5-2.2) mmol/L Calcium 8.8 (8.6-10.3) mg/dL Magnesium 1.2 L (1.6-2.6) mg/dL Total Bilirubin 0.8 (0.3-1.0) mg/dL Direct Bilirubin 0.2 (0.0-0.2) mg/dL Indirect Bilirubin 0.6 (0.0-1.2) mg/dL AST 11 L (13-39) Units/L ALT 11 (7-52) Units/L Alkaline Phosphatase 91 (34-104) Units/L Ammonia (16-53) mcmol/L Troponin I 0.03 (< 0.04) ng/mL Serum Total Protein 6.7 (6.4-8.9) g/dL Albumin 3.1 L (3.5-5.7) g/dL Globulin 3.6 H (2.4-3.5) g/dL Albumin/Globulin Ratio 0.9 L (1.1-2.2) Lipase 4 L (11-82) Units/L TSH 1.026 (0.340-5.600) mcIU/mL 09/15/18 09/15/18 Range/Units 02:21 02:21 WBC (4.3-11.1) K/mcL RBC (4.19-5.50) M/mcL Hgb (12.9-16.9) g/dL Hct (37.5-50.1) % MCV (83.0-100.0) fL MCH (28.0-33.3) pg MCHC (31.6-35.5) g/dL RDW (11.5-14.5) % Plt Count (140-400) K/mcL MPV (9.4-12.4) fL Immature Gran % (0-4) % Seg Neutrophils % % Lymphocytes % % Monocytes % % Eosinophils % % Basophils % % Neutrophils # (1.6-8.9) K/mcL Lymphocytes # (0.6-4.6) K/mcL Monocytes # (0.0-1.3) K/mcL Eosinophils # (0.0-0.6) K/mcL Basophils # (0.0-0.2) K/mcL APTT (26.0-36.0) Seconds Sodium (136-145) mEq/L Potassium (3.5-5.1) mEq/L Chloride (98-107) mEq/L Carbon Dioxide (23-29) mEq/L BUN (8-23) mg/dL Creatinine (0.70-1.30) mg/dL Est GFR ( Amer) (> 60) Est GFR (Non-Af Amer) (> 60) BUN/Creatinine Ratio (6-26) Glucose (70-105) mg/dL Calculated Osmolality (280-300) Lactic Acid 1.1 (0.5-2.2) mmol/L Calcium (8.6-10.3) mg/dL Magnesium (1.6-2.6) mg/dL Total Bilirubin (0.3-1.0) mg/dL Direct Bilirubin (0.0-0.2) mg/dL Indirect Bilirubin (0.0-1.2) mg/dL AST (13-39) Units/L ALT (7-52) Units/L Alkaline Phosphatase (34-104) Units/L Ammonia 36 (16-53) mcmol/L Troponin I (< 0.04) ng/mL Serum Total Protein (6.4-8.9) g/dL Albumin (3.5-5.7) g/dL Globulin (2.4-3.5) g/dL Albumin/Globulin Ratio (1.1-2.2) Lipase (11-82) Units/L TSH (0.340-5.600) mcIU/mL - Radiology Data Radiology results reviewed: Yes I reviewed the patient's radiology results. Chest X-Ray 09/15/18 01:51 IMPRESSION: Fluctuating bibasilar opacities or most consistent with atelectasis. Superimposed infection could be present in the appropriate context. D/ / Gabino Bullard / Gabino Bullard Interpreting Provider: Gabino Bullard - EKG Data EKG #1 EKG attestation: Yes I reviewed and interpreted this EKG. EKG results narrative: EKG shows sinus tachycardia with ventricular rate of 102. Right bundle branch block. No significant change from prior EKG dated 09/06/2018. Critical Care Time Critical Care Time: Yes Total Critical Care Time: 35 Attestation: Critical care performed: Time is exclusive of separately billable procedures. Time includes: direct patient care, patient reassessment, coordination of patient care, interpretation of data (laboratory data, radiology data, and respiratory data), review of patient's medical records, medical consultation and documentation of patient care. Procedures included in critical care time: Procedures excluded from critical care time: Attestation Statement - Attestation Attestation: I, Dewayne Hanna MD, personally evaluated this patient and discussed their management with the resident physician. I reviewed the resident's note and agree with the documented findings, medical decision making, and plan of care. 72-year-old male [facility] for complaint of fever and increased generalized weakness. Family reports that yesterday he felt hot all day and slept more than usual and was less alert and seemed confused. He was recently in the hospital for urosepsis. On arrival he re the patient is alert and responds appropriately. He is oriented and answers questions appropriately but does seem a little slow to respond and slightly confused. Family reports this is not his normal mental status. On examination patient is a well-developed well-nourished elderly male in no ac [place] distress. He is alert and oriented. No cyanosis or diaphoresis. Breath sounds are decreased bilaterally. Heart regular rate and rhythm. Abdomen is soft and nontender with normal bowel sounds. EKG shows sinus tachycardia with ventricular rate of 102. Right bundle branch block. No significant change from prior EKG dated 09/06/2018. Chest x-ray shows some bilateral airspace disease, likely atelectasis but underlying infection cannot be ruled out. Labs reviewed. Patient does have a leukocytosis. Also has acute kidney injury with doubling of his creatinine level from 5 days ago. Blood cultures obtained. Antibiotics initiated. The hospitalist, Dr. Mason, was consulted and accepted admission of the patient.
[2018-09-15 04:52] LABS: Bilirubin,Urine Negative (Negative); Blood,Urine Moderate (Negative); Clarity,Urine Cloudy (Clear); Color,Urine Yellow (Yellow); Glucose,Urine (UA) 500 mg/dL (Normal); Ketones,Urine Negative (Negative); Leukocyte Esterase,Urine Large (Negative); Nitrite,Urine Negative (Negative); Protein,Urine 30 mg/dL (Neg-Trace); Specific Gravity,Urine 1.014 (1.010-1.025); Urobilinogen,Urine Normal (Normal)
[2018-09-15 04:54] LABS: Bacteria,Urine None Seen per hpf (None-Few); Squamous Epithelial Cell,Urine Many per lpf (None-Few); WBC,Urine TNTC per hpf (0-3)
[2018-09-15 05:07] LABS: RBC,Urine 50-100 per hpf (0-3); Yeast,Urine Many per hpf (None Seen)
--- NOTE | 2018-09-15 07:49 | Internal Med History&Physical ---
Date of Encounter: 09/16/18 Internal Medicine - H&P: HPI History of present illness: 72-year-old male with history of CVA, CHF, diabetes who was recently discharged from the hospital after being treated for bacteremia secondary to urinary tract infection and today presented with a fever and generalized weakness associated with some confusion as reported by his family. The patient was evaluated by the ER staff and his chest x-ray revealed Fluctuating bibasilar opacities or most consistent with atelectasis. the patient is confused and further history cannot be obtained the patient was admitted for further evaluation and management of hospital-acquired pneumonia Past Med Surg Social Fam HX - Past Medical History Medical history: cancer, CHF, CVA, diabetes, hyperlipidemia, hypertension, TIA Additional medical history: breast CA Psychiatric history: depression - Past Surgical History Additional surgical history: right breast removed in 2001, breast cancer. right foot surgery and left hand surgery - Social History Smoking Status: Former smoker Smokeless Tobacco Status: No Alcohol use: none Drug use: none - Family History Father Living Status: Hx Family Cancer: Yes Hx Family Endocrine Disorder: Yes Mother Adopted: No Family Member Ethnicity: Non- Living Status: Hx Family Cardiac Disorders: No Hx Family Respiratory Disorders: No Hx Family Cancer: Yes Hx Family GI Disorders: No Hx Family Endocrine Disorder: No Hx Family Neuromuscular Disorders: No Hx Family Neurologic Disorders: No Hx Family HEENT Disorders: No Hx Family Autoimmune Disorders: No Internal Medicine - H&P: Meds Atorvastatin [Lipitor] 40 mg PO HS 10/04/17 [History] Escitalopram [Lexapro] 10 mg PO DAILY 10/04/17 [History] rOPINIRole [Requip] 0.25 mg PO HS 10/04/17 [History] Nitroglycerin 0.4 mg SL Q5MIN PRN 30 Days #28 tab.subl 10/06/17 [Rx] Amitriptyline [Elavil] 25 mg PO HS 07/18/18 [History] Insulin Human Regular [HumuLIN R] 11 unit SQ TIDAC 07/18/18 [History] Metformin HCl 1,000 mg PO BIDWM 07/18/18 [History] Furosemide [Lasix] 40 mg PO DAILY 09/06/18 [History] Potassium Chloride [Klor-Con 10] 10 meq PO DAILY 09/06/18 [History] Amoxicillin [Amoxil] 500 mg PO TID 10 Days #30 capsule 09/10/18 [Rx] Glucagon,Human Recombinant [Glucagen] 1 mg IM PRN PRN 09/15/18 [History] HYDROcodone/Acet 7.5/325 mg [[place] 7.5-325 mg] 1 tab PO Q6H PRN 09/15/18 [History] Insulin Glargine,Hum.rec.anlog [Basaglar Kwikpen U-100] 20 unit SQ HS 09/15/18 [History] Omeprazole [PriLOSEC] 20 mg PO DAILY 09/15/18 [History] Allergy/AdvReac Type Severity Reaction Status Date / Time shellfish derived Allergy Hives Verified 09/15/18 16:44 ROS unobtainable: due to mental status - Constitutional Vitals: Temp Pulse Resp BP Pulse Ox 98.3 F 82 16 122/65 96 09/15/18 06:30 09/15/18 06:30 09/15/18 06:30 09/15/18 06:30 09/15/18 06:30 - Neck Neck exam general surgery: Present: supple, trachea midline. Absent: lymph adenopathy - Respiratory Respiratory exam: Present: rhonchi. Absent: accessory muscle use, rales, wheezes - Cardiovascular Cardiovascular exam: Present: RRR, +S1, +S2. Absent: diastolic murmur, gallop, rubs, systolic murmur - GI/Abdominal GI/Abdominal exam: Present: normal bowel sounds, soft, no peritoneal signs. Absent: distended, tenderness - Extremities Exam Extremities exam: Present: warm, radial pulses palpable and symmetrical. Abs ent: calf tenderness, cyanotic, pedal edema Internal Med - H&P Results - Labs CBC & Chem 7: 09/15/18 02:21 09/15/18 02:21 Labs: Short CBC 09/15/18 Range/Units 02:21 WBC 13.4 H (4.3-11.1) K/mcL Hgb 11.7 L (12.9-16.9) g/dL Hct 34.3 L (37.5-50.1) % Plt Count 218 (140-400) K/mcL Neutrophils # 12.2 H (1.6-8.9) K/mcL BMP 09/15/18 02:21 Sodium 130 L Potassium 3.6 Chloride 99 Carbon Dioxide 20 L BUN 32 H Creatinine 1.48 H Glucose 237 H Calcium 8.8 Cardiac Enzymes 09/15/18 Range/Units 02:21 Troponin I 0.03 (< 0.04) ng/mL Liver Function 09/15/18 Range/Units 02:21 Total Bilirubin 0.8 (0.3-1.0) mg/dL Direct Bilirubin 0.2 (0.0-0.2) mg/dL AST 11 L (13-39) Units/L ALT 11 (7-52) Units/L Alkaline Phosphatase 91 (34-104) Units/L Albumin 3.1 L (3.5-5.7) g/dL Urine 09/15/18 Range/Units 04:32 Urine Color Yellow (Yellow) Urine Clarity Cloudy A (Clear) Urine pH 6.0 (5.0-8.0) pH Units Ur Specific [place] 1.014 (1.010-1.025) Urine Protein 30 H (Neg-Trace) mg/dL Urine Glucose (UA) 500 H (Normal) mg/dL - Impressions ITS Impressions Chest X-Ray 09/15/18 01:51 IMPRESSION: Fluctuating bibasilar opacities or most consistent with atelectasis. Superimposed infection could be present in the appropriate context. D/ / Gabino Bullard / Gabino Bullard Interpreting Provider: Gabino Bullard - Assessment and Plan (1) Hospital acquired PNA Current Visit: Yes Status: Acute Assessment and plan: Blood Cx - Antibiotics - CBCD, CMP in AM (2) Acute kidney injury Current Visit: Yes Status: Acute Assessment and plan: we'll start the patient on IV hydration with isotonic saline . MELONY most likely secondary to volume depletion in the setting of underlying infectious process, we'll continue to manage for monitor renal panel, avoid nephrotoxins and renal dosing of medication has been current egfr. (3) Uncontrolled diabetes mellitus Current Visit: No Status: Acute Assessment and plan: we will start the patient into sliding scale with coverage Qualifiers: Diabetes mellitus type: type 1 Glycemic state: with hyperglycemia Qualified Code(s): E10.65 - Type 1 diabetes mellitus with hyperglycemia (4) UTI (urinary tract infection) due to urinary indwelling Chang catheter Current Visit: No Status: Acute Qualifiers: Indwelling urinary catheter type: indwelling urethral catheter Encounter type: initial encounter Qualified Code(s): T83.511A - Infection and inflammatory reaction due to indwelling urethral catheter, initial encounter; N39.0 - Urinary tract infection, site not specified (5) Obesity (BMI 30.0-34.9) Current Visit: No Status: Chronic (6) HTN (hypertension) Current Visit: No Status: Chronic Assessment and plan: we will continue home medication and continue to monitor blood pressure well inpatient Qualifiers: Hypertension type: essential hypertension Qualified Code(s): I10 - Essential (primary) hypertension (7) HLD (hyperlipidemia) Current Visit: No Status: Chronic Qualifiers: Hyperlipidemia type: unspecified Qualified Code(s): E78.5 - Hyperlipidemia, unspecified (8) CHF (congestive heart failure) Current Visit: No Status: Chronic (9) Major depressive disorder, recurrent episode Current Visit: No Status: Acute Qualifiers: Major depression episode severity: moderate Qualified Code(s): F33.1 - Major depressive disorder, recurrent, moderate (10) Anemia Current Visit: No Status: Chronic Qualifiers: Anemia type: unspecified type Qualified Code(s): D64.9 - Anemia, unspecified - Time Spent With Patient Total time spent is greater than 50% in coordination of care (as documented) at patient's floor/unit and/or counseling patient:
[2018-09-15] MEDS ORDERED: Vancomycin (wt based) 1,000 MG VIAL IVPB SCH (09:00)
--- NOTE | 2018-09-15 09:53 | Electrocardiograph Report ---
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
[2018-09-15] MEDS: Piperacillin/Tazobactam 3.375 GM in 0.9 % Sodium Chloride Mini Bag 100 ML IVPB SCH ×2 (16:34→23:50)
[2018-09-15 17:25] LABS: INR 1.2; Prothrombin Time 13.7 Seconds (9.4-12.1)
[2018-09-15 17:39] LABS: Activated Partial Thrombo Time 18.7 Seconds (26.0-36.0)
[2018-09-15] MEDS ORDERED: Dextrose Gel 15 GM/37.5 ML TUBE PO PRN ×2 (23:13)
[2018-09-15] MEDS ORDERED: D5% in Water 1,000 ML IVC PRN (23:13)
[2018-09-15] MEDS ORDERED: *HR* Dextrose 50 % in Water (Syg) 50 ML SYRINGE IVP PRN (23:13)
[2018-09-15] MEDS: *HR* HYDROcodone/Acet 7.5/325 mg TABLET PO PRN (23:49)
[2018-09-15] MEDS: Insulin LISPRO 300 UNITS/3 ML VIAL SQ SCH (23:49)
[2018-09-15] MEDS: rOPINIRole 0.25 MG TABLET PO SCH (23:49)
--- NOTE | 2018-09-16 08:10 | Internal Med Progress Note ---
Hospitalist Progress Note - Encounter Date of Encounter: 09/16/18 Time of Encounter: 08:00 - Subjective Interval History: Came in overnight with fever and pneumonia - Exam Vitals: Temp Pulse Resp BP Pulse Ox 98.6 F 76 16 106/68 93 09/16/18 07:01 09/16/18 07:01 09/16/18 07:01 09/16/18 07:01 09/16/18 07:01 Exam: General appearance: Present: A&O X 3, no acute distress Head exam: Present: normocephalic Respiratory exam: Present: CTAB. Absent: accessory muscle use, rales, rhonchi, wheezes Cardiovascular exam: Present: RRR, +S1, +S2. Absent: diastolic murmur, gallop, rubs, systolic murmur GI/Abdominal exam: Soft, NT, ND, +BS Extremities exam: Absent: pedal edema Neurological exam: Present: alert, oriented X3, no focal deficits. Absent: altered - Assessment and Plan (1) Hospital acquired PNA Current Visit: Yes Status: Acute Assessment and Plan: Pt comes in with generalized weakness, fevers and cough with evidence of pneumonia on xray Continue on vanc and zosyn. Follow up blood cultures (2) CHF (congestive heart failure) Current Visit: Yes Status: Chronic Assessment and Plan: Has chronic diastolic CHF with no acute worsening Hold lasix due to cassandra (3) HTN (hypertension) Current Visit: Yes Status: Chronic Assessment and Plan: we will continue home medication and continue to monitor blood pressure well inpatient (4) HLD (hyperlipidemia) Current Visit: Yes Status: Chronic Assessment and Plan: Continue statin (5) Major depressive disorder, recurrent episode Current Visit: Yes Status: Acute Assessment and Plan: Continue home meds (6) Anemia Current Visit: Yes Status: Chronic Assessment and Plan: Monitor CBC and transfuse as indicated (7) Uncontrolled diabetes mellitus Current Visit: Yes Status: Acute Assessment and Plan: we will start the patient into sliding scale with coverage (8) Acute kidney injury Current Visit: Yes Status: Acute Assessment and Plan: Hold lasix. Genlte hydration DVT Prophylaxis: heparin sc - Time Spent with Patient Total time spent is greater than 50% in coordination of care (as documented) at patient's floor/unit and/or counseling patient: Internal Medicine: Result - Labs CBC & Chem 7: 09/15/18 02:21 09/15/18 02:21 - ABG Interpretation ABG results: PT/INR, D-dimer PT 13.7 Seconds (9.4-12.1) H 09/15/18 16:58 Consult Discharge Plan - Plan Referrals: NONE,PCP [Primary Care Provider] - (3) HTN (hypertension) Qualifiers: Hypertension type: essential hypertension Qualified Code(s): I10 - Essential (primary) hypertension (4) HLD (hyperlipidemia) Qualifiers: Hyperlipidemia type: unspecified Qualified Code(s): E78.5 - Hyperlipidemia, unspecified (5) Major depressive disorder, recurrent episode Qualifiers: Major depression episode severity: moderate Qualified Code(s): F33.1 - Major depressive disorder, recurrent, moderate (6) Anemia Qualifiers: Anemia type: unspecified type Qualified Code(s): D64.9 - Anemia, unspecified (7) Uncontrolled diabetes mellitus Qualifiers: Diabetes mellitus type: type 1 Glycemic state: with hyperglycemia Qualified Code(s): E10.65 - Type 1 diabetes mellitus with hyperglycemia
[2018-09-16] MEDS: Piperacillin/Tazobactam 3.375 GM in 0.9 % Sodium Chloride Mini Bag 100 ML IVPB SCH ×2 (08:30→16:27)
[2018-09-16] MEDS: Insulin LISPRO 300 UNITS/3 ML VIAL SQ SCH ×4 (08:31→21:07)
[2018-09-16] MEDS: *HR* HYDROcodone/Acet 7.5/325 mg TABLET PO PRN (15:02)
[2018-09-16] MEDS: *HR* Heparin 5,000 UNIT/ML VIAL SQ SCH (16:27)
[2018-09-16] MEDS: rOPINIRole 0.25 MG TABLET PO SCH (20:51)
[2018-09-16] MEDS ORDERED: Insulin DETEMIR 100 UNIT/ML X5UNITS SQ SCH (21:00)
[2018-09-16] MEDS: Insulin DETEMIR 100 UNIT/ML X5UNITS SQ SCH (21:08)
[2018-09-16 21:15] LABS: Acinetobacter baumannii by PCR Not Detected (Not Detect); Candida albicans by PCR Not Detected (Not Detect); Enterobacter cloacae Cmplx PCR Not Detected (Not Detect); Enterobacteriaceae by PCR Not Detected (Not Detect); Enterococcus by PCR Not Detected (Not Detect); Escherichia coli by PCR Not Detected (Not Detect); Klebsiella oxytoca by PCR Not Detected (Not Detect); Klebsiella pneumoniae by PCR Not Detected (Not Detect); Proteus by PCR Not Detected (Not Detect); Pseudomonas aeruginosa by PCR Not Detected (Not Detect); Serratia marcescens by PCR Not Detected (Not Detect); Staphylococcus aureus by PCR Not Detected (Not Detect); Staphylococcus by PCR Not Detected (Not Detect); Streptococcus agalactiae(B)PCR Not Detected (Not Detect); Streptococcus by PCR Not Detected (Not Detect); Streptococcus pneumoniae PCR Not Detected (Not Detect); Streptococcus pyogenes (A) PCR Not Detected (Not Detect); blaKPC Carbapenem-Resist Gene Not Detected (Not Detect); mecA Methicillin-Resist Gene Not Detected (Not Detect); vanA/B Vancomycin-Resist Genes Not Detected (Not Detect)
[2018-09-16 21:16] LABS: Candida glabrata by PCR DETECTED (Not Detect); Candida krusei by PCR Not Detected (Not Detect); Candida parapsilosis by PCR Not Detected (Not Detect); Candida tropicalis by PCR Not Detected (Not Detect)
[2018-09-16] MEDS ORDERED: D5% in Water 50 ML IVC SCH (21:45)
[2018-09-16] MEDS ORDERED: WATER IVPB SCH (22:00)
[2018-09-16] MEDS ORDERED: D5 IVPB SCH (22:00)
[2018-09-16] MEDS ORDERED: AMPHOTERICIN B LIPID COMPLEX IVPB SCH (22:00)
[2018-09-17] MEDS: Piperacillin/Tazobactam 3.375 GM in 0.9 % Sodium Chloride Mini Bag 100 ML IVPB SCH ×4 (01:49→23:35)
--- NOTE | 2018-09-17 05:05 | Event Note ---
Date of Encounter: 09/16/18 Time of Encounter: 21:15 Alerted by patient's nurse DANNIE Reese that patient had positive blood cultures returned with Aurora glabrata. Patient had been admitted with pneumonia, hypoxia, and MELONY. Patient currently on Zosyn and vancomycin. WBC 13.4. Reviewed current scientific research regarding Aurora glabrata and blood cultures which recommends treatment with amphotericin B. Discussed this pt. w/Kevin Brown in Pharmacy for dosing. Order for amphotericin B placed to start now. Patient's IV to be flushed prior and post administration of amphotericin B with D5 which was also ordered. Nurse instructed of these requirements. Nurse instructed to continue monitoring patient very closely and notify me immediately of any adverse changes.
[2018-09-17] MEDS: *HR* Heparin 5,000 UNIT/ML VIAL SQ SCH ×2 (06:01→17:23)
[2018-09-17 06:12] LABS: Basophils % 0.2 %; Eosinophils # 0.1 K/mcL (0.0-0.6); Eosinophils % 0.6 %; Hematocrit 32.4 % (37.5-50.1); Hemoglobin 11.1 g/dL (12.9-16.9); Immature Granulocytes % 0.2 % (0-4); Lymphocytes # 0.6 K/mcL (0.6-4.6); Lymphocytes % 7.1 %; Mean Corpuscular HGB Conc 34.3 g/dL (31.6-35.5); Mean Corpuscular Hemoglobin 29.5 pg (28.0-33.3); Mean Corpuscular Volume 86.2 fL (83.0-100.0); Mean Platelet Volume 10.7 fL (9.4-12.4); Monocytes # 0.3 K/mcL (0.0-1.3); Monocytes % 3.7 %; Neutrophils # 7.7 K/mcL (1.6-8.9); Platelet Count 185 K/mcL (140-400); Red Blood Count 3.76 M/mcL (4.19-5.50); Red Cell Distribution Width 12.7 % (11.5-14.5); Segmented Neutrophils % 88.2 %; White Blood Count 8.7 K/mcL (4.3-11.1)
[2018-09-17 06:25] LABS: BUN/Creatinine Ratio 22 (6-26); Blood Urea Nitrogen 28 mg/dL (8-23); Calcium 8.2 mg/dL (8.6-10.3); Carbon Dioxide 20 mEq/L (23-29); Chloride 101 mEq/L (98-107); Glucose 357 mg/dL (70-105); Magnesium 1.3 mg/dL (1.6-2.6); Osmolality,Calculated 292 (280-300); Phosphorous 2.3 mg/dL (2.7-4.5); Potassium 3.9 mEq/L (3.5-5.1); Sodium 131 mEq/L (136-145); eGFR For African Americans > 60 (> 60); eGFR For Non-African Americans 56 (> 60)
--- NOTE | 2018-09-17 07:47 | Internal Med Progress Note ---
Hospitalist Progress Note - Encounter Date of Encounter: 09/17/18 Time of Encounter: 07:30 - Subjective Interval History: No acute events overnight. Blood cultures growing marivel - Exam Vitals: Temp Pulse Resp BP Pulse Ox 98.3 F 58 18 109/68 92 09/17/18 06:40 09/17/18 06:40 09/17/18 06:40 09/17/18 06:40 09/17/18 06:40 Exam: General appearance: Present: A&O X 3, no acute distress Head exam: Present: normocephalic Respiratory exam: Present: CTAB. Absent: accessory muscle use, rales, rhonchi, wheezes Cardiovascular exam: Present: RRR, +S1, +S2. Absent: diastolic murmur, gallop, rubs, systolic murmur GI/Abdominal exam: Soft, NT, ND, +BS Extremities exam: Absent: pedal edema Neurological exam: Present: alert, oriented X3, no focal deficits. Absent: altered - Assessment and Plan (1) Sepsis Current Visit: Yes Status: Acute Assessment and Plan: Pt has sepsis secondary to bacterial pneumonia and marivel fungemia Continue vancomycin, zosyn. Started on micafungin Repeat blood cultures Infectious diseases consulted. Will obtain opthalmology consult to assess for endopthalmitis due to candidemia (2) Fungemia Current Visit: Yes Status: Acute Assessment and Plan: See #1. Continue micafungin (3) Hospital acquired PNA Current Visit: Yes Status: Acute Assessment and Plan: Pt comes in with generalized weakness, fevers and cough with evidence of pneumonia on xray Continue on vanc and zosyn. Follow up blood cultures (4) CHF (congestive heart failure) Current Visit: Yes Status: Chronic Assessment and Plan: Has chronic diastolic CHF with no acute worsening Resume po lasix (5) HTN (hypertension) Current Visit: Yes Status: Chronic Assessment and Plan: we will continue home medication and continue to monitor blood pressure well inpatient (6) HLD (hyperlipidemia) Current Visit: Yes Status: Chronic Assessment and Plan: Continue statin (7) Major depressive disorder, recurrent episode Current Visit: Yes Status: Acute Assessment and Plan: Continue home meds (8) Anemia Current Visit: Yes Status: Chronic Assessment and Plan: Monitor CBC and transfuse as indicated (9) Uncontrolled diabetes mellitus Current Visit: Yes Status: Acute Assessment and Plan: we will start the patient into sliding scale with coverage (10) Acute kidney injury Current Visit: Yes Status: Acute Assessment and Plan: Hold lasix. Genlte hydration DVT Prophylaxis: heparin sc - Time Spent with Patient Total time spent is greater than 50% in coordination of care (as documented) at patient's floor/unit and/or counseling patient: Internal Medicine: Result - Labs CBC & Chem 7: 09/17/18 05:37 09/17/18 05:37 Labs: Short CBC 09/17/18 Range/Units 05:37 WBC 8.7 (4.3-11.1) K/mcL Hgb 11.1 L (12.9-16.9) g/dL Hct 32.4 L (37.5-50.1) % Plt Count 185 (140-400) K/mcL Neutrophils # 7.7 (1.6-8.9) K/mcL BMP 09/17/18 05:37 Sodium 131 L Potassium 3.9 Chloride 101 Carbon Dioxide 20 L BUN 28 H Creatinine 1.25 Glucose 357 H Calcium 8.2 L - ABG Interpretation ABG results: PT/INR, D-dimer PT 13.7 Seconds (9.4-12.1) H 09/15/18 16:58 Consult Discharge Plan - Plan Referrals: NONE,PCP [Primary Care Provider] - (5) HTN (hypertension) Qualifiers: Hypertension type: essential hypertension Qualified Code(s): I10 - Essential (primary) hypertension (6) HLD (hyperlipidemia) Qualifiers: Hyperlipidemia type: unspecified Qualified Code(s): E78.5 - Hyperlipidemia, unspecified (7) Major depressive disorder, recurrent episode Qualifiers: Major depression episode severity: moderate Qualified Code(s): F33.1 - Major depressive disorder, recurrent, moderate (8) Anemia Qualifiers: Anemia type: unspecified type Qualified Code(s): D64.9 - Anemia, unspecified (9) Uncontrolled diabetes mellitus Qualifiers: Diabetes mellitus type: type 1 Glycemic state: with hyperglycemia Qualified Code(s): E10.65 - Type 1 diabetes mellitus with hyperglycemia
[2018-09-17] MEDS: Furosemide 40 MG TABLET PO SCH (08:56)
[2018-09-17] MEDS ORDERED: Micafungin 100 MG in 0.9 % Sodium Chloride Mini Bag 100 ML IVPB SCH ×2 (09:00→13:00)
[2018-09-17] MEDS: Insulin LISPRO 300 UNITS/3 ML VIAL SQ SCH ×4 (09:01→20:19)
[2018-09-17] MEDS: *HR* HYDROcodone/Acet 7.5/325 mg TABLET PO PRN ×2 (09:14→17:34)
[2018-09-17] MEDS: Insulin DETEMIR 100 UNIT/ML X5UNITS SQ SCH (20:18)
[2018-09-17] MEDS: rOPINIRole 0.25 MG TABLET PO SCH (20:19)
[2018-09-18 04:36] LABS: Basophils % 0.5 %; Eosinophils # 0.2 K/mcL (0.0-0.6); Eosinophils % 3.4 %; Hematocrit 33.4 % (37.5-50.1); Hemoglobin 11.2 g/dL (12.9-16.9); Immature Granulocytes % 0.4 % (0-4); Lymphocytes # 1.9 K/mcL (0.6-4.6); Lymphocytes % 34.6 %; Mean Corpuscular HGB Conc 33.5 g/dL (31.6-35.5); Mean Corpuscular Hemoglobin 29.2 pg (28.0-33.3); Mean Corpuscular Volume 87.2 fL (83.0-100.0); Mean Platelet Volume 10.1 fL (9.4-12.4); Monocytes # 0.4 K/mcL (0.0-1.3); Monocytes % 7.3 %; Platelet Count 230 K/mcL (140-400); Red Blood Count 3.83 M/mcL (4.19-5.50); Red Cell Distribution Width 12.8 % (11.5-14.5); Segmented Neutrophils % 53.8 %; White Blood Count 5.6 K/mcL (4.3-11.1)
[2018-09-18 04:57] LABS: BUN/Creatinine Ratio 22 (6-26); Blood Urea Nitrogen 23 mg/dL (8-23); Calcium 8.5 mg/dL (8.6-10.3); Carbon Dioxide 22 mEq/L (23-29); Chloride 105 mEq/L (98-107); Glucose 230 mg/dL (70-105); Magnesium 1.6 mg/dL (1.6-2.6); Osmolality,Calculated 291 (280-300); Potassium 3.4 mEq/L (3.5-5.1); Sodium 135 mEq/L (136-145); eGFR For African Americans > 60 (> 60); eGFR For Non-African Americans > 60 (> 60)
[2018-09-18] MEDS: *HR* Heparin 5,000 UNIT/ML VIAL SQ SCH ×2 (05:59→17:01)
[2018-09-18] MEDS: *HR* HYDROcodone/Acet 7.5/325 mg TABLET PO PRN ×3 (07:39→20:23)
[2018-09-18] MEDS: Furosemide 40 MG TABLET PO SCH (07:40)
[2018-09-18] MEDS: Piperacillin/Tazobactam 3.375 GM in 0.9 % Sodium Chloride Mini Bag 100 ML IVPB SCH ×2 (07:40→16:21)
[2018-09-18] MEDS: Insulin LISPRO 300 UNITS/3 ML VIAL SQ SCH ×4 (07:40→20:42)
--- NOTE | 2018-09-18 07:44 | Internal Med Progress Note ---
Hospitalist Progress Note - Encounter Date of Encounter: 09/18/18 Time of Encounter: 07:45 - Subjective Interval History: No acute events overnight - Exam Vitals: Temp Pulse Resp BP Pulse Ox 97.4 F L 73 18 166/86 93 09/18/18 06:55 09/18/18 06:55 09/18/18 06:55 09/18/18 06:55 09/18/18 06:55 Exam: General appearance: Present: A&O X 3, no acute distress Head exam: Present: normocephalic Respiratory exam: Present: CTAB. Absent: accessory muscle use, rales, rhonchi, wheezes Cardiovascular exam: Present: RRR, +S1, +S2. Absent: diastolic murmur, gallop, rubs, systolic murmur GI/Abdominal exam: Soft, NT, ND, +BS Extremities exam: Absent: pedal edema Neurological exam: Present: alert, oriented X3, no focal deficits. Absent: altered - Assessment and Plan (1) Sepsis Current Visit: Yes Status: Acute Assessment and Plan: Pt has sepsis secondary to bacterial pneumonia and marivel fungemia Continue vancomycin, zosyn. Started on micafungin Repeat blood cultures Infectious diseases consulted. Will obtain opthalmology consult to assess for endopthalmitis due to candidemia (2) Fungemia Current Visit: Yes Status: Acute Assessment and Plan: See #1. Continue micafungin (3) Hospital acquired PNA Current Visit: Yes Status: Acute Assessment and Plan: Pt comes in with generalized weakness, fevers and cough with evidence of pneumonia on xray Continue on vanc and zosyn. Follow up blood cultures (4) CHF (congestive heart failure) Current Visit: Yes Status: Chronic Assessment and Plan: Has chronic diastolic CHF with no acute worsening Resume po lasix (5) HTN (hypertension) Current Visit: Yes Status: Chronic Assessment and Plan: we will continue home medication and continue to monitor blood pressure well inpatient (6) HLD (hyperlipidemia) Current Visit: Yes Status: Chronic Assessment and Plan: Continue statin (7) Major depressive disorder, recurrent episode Current Visit: Yes Status: Acute Assessment and Plan: Continue home meds (8) Anemia Current Visit: Yes Status: Chronic Assessment and Plan: Monitor CBC and transfuse as indicated (9) Uncontrolled diabetes mellitus Current Visit: Yes Status: Acute Assessment and Plan: we will start the patient into sliding scale with coverage (10) Acute kidney injury Current Visit: Yes Status: Acute Assessment and Plan: Hold lasix. Genlte hydration DVT Prophylaxis: heparin sc - Time Spent with Patient Total time spent is greater than 50% in coordination of care (as documented) at patient's floor/unit and/or counseling patient: Internal Medicine: Result - Labs CBC & Chem 7: 09/18/18 03:59 09/18/18 03:59 Labs: Short CBC 09/18/18 Range/Units 03:59 WBC 5.6 (4.3-11.1) K/mcL Hgb 11.2 L (12.9-16.9) g/dL Hct 33.4 L (37.5-50.1) % Plt Count 230 (140-400) K/mcL Neutrophils # 3.0 (1.6-8.9) K/mcL BMP 09/18/18 03:59 Sodium 135 L Potassium 3.4 L Chloride 105 Carbon Dioxide 22 L BUN 23 Creatinine 1.05 Glucose 230 H Calcium 8.5 L - ABG Interpretation ABG results: PT/INR, D-dimer PT 13.7 Seconds (9.4-12.1) H 09/15/18 16:58 Consult Discharge Plan - Plan Referrals: NONE,PCP [Primary Care Provider] - (5) HTN (hypertension) Qualifiers: Hypertension type: essential hypertension Qualified Code(s): I10 - Essential (primary) hypertension (6) HLD (hyperlipidemia) Qualifiers: Hyperlipidemia type: unspecified Qualified Code(s): E78.5 - Hyperlipidemia, unspecified (7) Major depressive disorder, recurrent episode Qualifiers: Major depression episode severity: moderate Qualified Code(s): F33.1 - Major depressive disorder, recurrent, moderate (8) Anemia Qualifiers: Anemia type: unspecified type Qualified Code(s): D64.9 - Anemia, unspecified (9) Uncontrolled diabetes mellitus Qualifiers: Diabetes mellitus type: type 1 Glycemic state: with hyperglycemia Qualified Code(s): E10.65 - Type 1 diabetes mellitus with hyperglycemia
[2018-09-18] MEDS: Potassium Chloride Elixir 20 MEQ/15 ML UDC PO SCH ×2 (08:10→12:23)
[2018-09-18] MEDS: Micafungin 100 MG in 0.9 % Sodium Chloride Mini Bag 100 ML IVPB SCH (14:12)
[2018-09-18] MEDS: Insulin DETEMIR 100 UNIT/ML X5UNITS SQ SCH (20:22)
[2018-09-18] MEDS: rOPINIRole 0.25 MG TABLET PO SCH (20:23)
[2018-09-19] MEDS: Piperacillin/Tazobactam 3.375 GM in 0.9 % Sodium Chloride Mini Bag 100 ML IVPB SCH ×3 (00:11→16:41)
[2018-09-19] MEDS: *HR* HYDROcodone/Acet 7.5/325 mg TABLET PO PRN ×3 (03:03→22:30)
[2018-09-19] MEDS: *HR* Heparin 5,000 UNIT/ML VIAL SQ SCH ×2 (03:03→16:40)
--- NOTE | 2018-09-19 07:34 | Internal Med Progress Note ---
Hospitalist Progress Note - Encounter Date of Encounter: 09/19/18 Time of Encounter: 07:30 - Subjective Interval History: No acute events overnight - Exam Vitals: Temp Pulse Resp BP Pulse Ox 98.1 F 76 16 147/87 94 09/19/18 07:20 09/19/18 07:20 09/19/18 07:20 09/19/18 07:20 09/19/18 07:20 Exam: General appearance: Present: A&O X 3, no acute distress Head exam: Present: normocephalic Respiratory exam: Present: CTAB. Absent: accessory muscle use, rales, rhonchi, wheezes Cardiovascular exam: Present: RRR, +S1, +S2. Absent: diastolic murmur, gallop, rubs, systolic murmur GI/Abdominal exam: Soft, NT, ND, +BS Extremities exam: Absent: pedal edema Neurological exam: Present: alert, oriented X3, no focal deficits. Absent: altered - Assessment and Plan (1) Sepsis Current Visit: Yes Status: Acute Assessment and Plan: Pt has sepsis secondary to bacterial pneumonia and marivel fungemia. Had elevated WBC and tachycardia on admission and opacities on cxr Continue vancomycin, zosyn. Started on micafungin Repeat blood cultures. Unclear source of fungemia Infectious diseases consulted. Will obtain opthalmology consult to assess for endopthalmitis due to candidemia (2) Fungemia Current Visit: Yes Status: Acute Assessment and Plan: See #1. Continue micafungin (3) Hospital acquired PNA Current Visit: Yes Status: Acute Assessment and Plan: Pt comes in with generalized weakness, fevers and cough with evidence of pneumonia on xray Continue on vanc and zosyn. Follow up blood cultures (4) CHF (congestive heart failure) Current Visit: Yes Status: Chronic Assessment and Plan: Has chronic diastolic CHF with no acute worsening Resume po lasix (5) HTN (hypertension) Current Visit: Yes Status: Chronic Assessment and Plan: we will continue home medication and continue to monitor blood pressure well inpatient (6) HLD (hyperlipidemia) Current Visit: Yes Status: Chronic Assessment and Plan: Continue statin (7) Major depressive disorder, recurrent episode Current Visit: Yes Status: Acute Assessment and Plan: Continue home meds (8) Anemia Current Visit: Yes Status: Chronic Assessment and Plan: Monitor CBC and transfuse as indicated (9) Uncontrolled diabetes mellitus Current Visit: Yes Status: Acute Assessment and Plan: we will start the patient into sliding scale with coverage (10) Acute kidney injury Current Visit: Yes Status: Acute Assessment and Plan: Hold lasix. Genlte hydration DVT Prophylaxis: heparin sc - Time Spent with Patient Total time spent is greater than 50% in coordination of care (as documented) at patient's floor/unit and/or counseling patient: Internal Medicine: Result - Labs CBC & Chem 7: 09/19/18 09:21 09/19/18 09:21 - ABG Interpretation ABG results: PT/INR, D-dimer PT 13.7 Seconds (9.4-12.1) H 09/15/18 16:58 - Impressions Impressions Echocardiogram 09/17/18 06:45 Impressions: LVEF 60%. Moderate left ventricular diastolic dysfunction. Normal right ventricular structure and function. No evidence of pulmonary hypertension. Mild to moderate aortic regurgitation. Moderate tricuspid regurgitation. The aortic root is dilated. Proximal ascending aorta measures 4.8 cm Consider DARLENE if clinical suspicion for endocarditis persists Left Ventricular Wall Motion: Rest Echo Findings All wall segments showed normal motion. Findings: Study Quality * Technically adequate exam. ECG Findings * Sinus rhythm with BBB. Left Ventricle * LVEF 60%. * Normal LV chamber size * Moderate left ventricular diastolic dysfunction. * Mild concentric left ventricular hypertrophy. Right Ventricle * Normal right ventricular structure and function. Left Atrium * Normal left atrial size. Right Atrium * Normal right atrial size. Aortic Valve * Trileaflet aortic valve. * Mildly calcified aortic valve leaflets. * No aortic stenosis. * Moderate aortic regurgitation. Mitral Valve * Mild mitral annular calcification * No mitral stenosis. * No mitral regurgitation. Tricuspid Valve * No evidence of pulmonary hypertension. * No tricuspid stenosis. * Tricuspid valve not well visualized. * Moderate tricuspid regurgitation. Pulmonic Valve * Mild pulmonic regurgitation. Aorta * The aortic root is dilated. Proximal ascending aorta measures 4.8 cm Pericardium * The pericardium appears normal. IVC * Normal IVC dimensions and inspiratory collapse. Pulmonary Artery * Normal visualized portions of the main pulmonary artery. Consult Discharge Plan - Plan Referrals: NONE,PCP [Primary Care Provider] - ___ (1) Sepsis Qualifiers: Qualified Code(s): A41.9 - Sepsis, unspecified organism (5) HTN (hypertension) Qualifiers: Hypertension type: essential hypertension Qualified Code(s): I10 - Essential (primary) hypertension (6) HLD (hyperlipidemia) Qualifiers: Hyperlipidemia type: unspecified Qualified Code(s): E78.5 - Hyperlipidemia, unspecified (7) Major depressive disorder, recurrent episode Qualifiers: Major depression episode severity: moderate Qualified Code(s): F33.1 - Major depressive disorder, recurrent, moderate (8) Anemia Qualifiers: Anemia type: unspecified type Qualified Code(s): D64.9 - Anemia, unspecified (9) Uncontrolled diabetes mellitus Qualifiers: Diabetes mellitus type: type 1 Glycemic state: with hyperglycemia Qualified Code(s): E10.65 - Type 1 diabetes mellitus with hyperglycemia
[2018-09-19] MEDS: Furosemide 40 MG TABLET PO SCH (07:44)
[2018-09-19] MEDS: Insulin LISPRO 300 UNITS/3 ML VIAL SQ SCH ×4 (07:44→22:25)
--- NOTE | 2018-09-19 08:03 | Infectious Disease Consult ---
Infectious Disease-Consult - Encounter Date/Time Date of Encounter: 09/19/18 Time of Encounter: 09:45 - Data of Consult Patient: known to practice within the last 3 years Reason for consult: Candidemia Consult date: 09/19/18 Requesting Physician: Yoli Mason MD Primary Care Provider: PCP NONE - HPI HPI: Mr. Khanna is a 72-year-old gentleman who presented to [facility] on 09/15/18 with complaints of fever and generalized weakness. Infectious disease was consulted today due to candidemia on blood cultures from 09/15/18. Mr. Castaneda has a history of CHF, CVA, diabetes mellitus, hyperlipidemia, hypertension, TIA, breast cancer in 2001. He was recently hospitalized due to catheter associated UTI at which time he was growing Enterococcus faecalis. He does have chronic indwelling catheters for which she has been seen by urology. He has had issues with urinary incontinence which apparently going on for several months and started somewhat suddenly. At the time of his discharge on 09/10/18, the patient was intended to be treated with a total of 14 day course of amoxicillin. At the time of his arrival back to the hospital, the patient primarily complains of weakness and inability to hold his urine. He does not complain of any pain, dysuria, pyuria. He does say that he has some hematuria and increased frequency. He says that he cannot even have a sensation of the need to urinate. He says that he has had a chronic indwelling Chang catheter for the past 2 months which was removed last week however his symptoms have not resolved. From chart review, it appears that he has had extensive workup from urology, and has had treatments including Botox injections and a bladder sti mulator. He says that nothing seemed to help overall. He has no other acute complaints at this time. On arrival, the patient did have fever, leukocytosis, tachypnea, tachycardia. He had a chest x-ray in the emergency department that had bibasilar opacities that was consistent with atelectasis and there also was possible concern for infection. Blood cultures were drawn at that time which have subsequently returned positive for Aurora glabrata. Additionally, Aurora yeast species has been demonstrated in the urine. The patient was started on micafungin and a infectious disease consult was placed. - ROS Review of Systems: Constitutional: Denies fevers, chills, weight loss, generalized fatigue Head/Neck: Denies MORLEY, neck stiffness EENT: Denies vision changes/blurriness, rhinorrhea, congestion, sore throat CVS: Denies chest pain, palpitations, CASTAÑEDA, orthopnea, edema, PND Pulm: Denies SOB, cough, sputum, hemoptysis, wheezing GI: Denies abdominal pain, nausea, vomiting, diarrhea, constipation, melena, hematemasis : Admits to urinary incontinence, hematuria which has since resolved, frequency. Heme: Denies ease of bleeding or bruising MSK: Denies joint pain, limited ROM Skin: Denies rashes, ulcers, color changes Neuro: Denies MORLEY, paresthesias, focal deficits, ataxia - Results CBC & Chem 7: 09/20/18 04:03 09/20/18 04:03 - Exam Vitals: Temp Pulse Resp BP Pulse Ox 98.1 F 76 16 147/87 94 09/19/18 07:20 09/19/18 07:20 09/19/18 07:20 09/19/18 07:20 09/19/18 07:20 Exam: Gen: Vitals noted. No acute distress. Eyes: anicteric sclerae, moist conjunctivae; no lid-lag; Pupils equal and reactive to light HENT: Atraumatic; oropharynx clear with moist mucous membranes and no mucosal ulcerations; normal hard and soft palate Neck: Trachea midline; supple, no thyromegaly or lymphadenopathy Cardiac: RRR, no murmur, +S1/S2 Pulmonary: CTA bilaterally, no wheezes, rales or rhonchi, equal chest expansion Abdomen: soft, nontender, no guarding. No masses or hepatosplenomegaly MSK: ROM intact, no joint swelling noted Extremities: no BLE edema, nontender calf, no cyanosis or clubbing Skin: Normal temperature, turgor; no ulcers or subcutaneous nodules. Patient has dry skin and erythema around his mouth and face. Neuro: moves all extremities, no focal deficits. Psych: Appropriate mood and behavior. A&Ox3 Atorvastatin [Lipitor] 40 mg PO HS 10/04/17 [History] Escitalopram [Lexapro] 10 mg PO DAILY 10/04/17 [History] rOPINIRole [Requip] 0.25 mg PO HS 10/04/17 [History] Nitroglycerin 0.4 mg SL Q5MIN PRN 30 Days #28 tab.subl 10/06/17 [Rx] Amitriptyline [Elavil] 25 mg PO HS 07/18/18 [History] Insulin Human Regular [HumuLIN R] 11 unit SQ TIDAC 07/18/18 [History] Metformin HCl 1,000 mg PO BIDWM 07/18/18 [History] Furosemide [Lasix] 40 mg PO DAILY 09/06/18 [History] Potassium Chloride [Klor-Con 10] 10 meq PO DAILY 09/06/18 [History] Glucagon,Human Recombinant [Glucagen] 1 mg IM PRN PRN 09/15/18 [History] HYDROcodone/Acet 7.5/325 mg [[place] 7.5-325 mg] 1 tab PO Q6H PRN 09/15/18 [History] Insulin Glargine,Hum.rec.anlog [Basaglar Kwikpen U-100] 20 unit SQ HS 09/15/18 [History] Omeprazole [PriLOSEC] 20 mg PO DAILY 09/15/18 [History] Allergy/AdvReac Type Severity Reaction Status Date / Time shellfish derived Allergy Hives Verified 09/15/18 16:44 - Assessment and Plan (1) Sepsis Current Visit: Yes Status: Acute Sepsis upon arrival, since resolved Causative organism: Aurora glabrata, source: Urinary tract SIRS criteria: WBC 13.4, HR 104, RR 20, End organ damage with MELONY CXR 09/15/18 shows bibasilar opacities, possible atelectasis vs pna TTE 09/17/18 essentially unremarkable without evidence of vegetations Vitals have improved, WBC now 5.3 Cultures 09/15/18 Blood cultures positive for aurora glabrata x2, pansensitive 09/15/18 Urine culture positive for aurora species 09/17/18 Blood cultures NGTD 09/06/18 Blood cultures positive for Enterococcus faecalis x2 (pansensitive) 09/07/18 Blood cultures negative x2 ABX Vancomycin day 5 Zosyn Day 5 Micafungin day 3 Recommendations Continue treatment of Candidemia, will require 14d from first negative blood culture Okay to desescalate to diflucan 800mg daily. Will need CBC + CMP weekly for monitoring Likely stop date 10/01/18 for diflucan No dose adjustment needed for CrCl ~50 Stop vancomycin today Continue zosyn through tomorrow to finish course for enterococcus bacteremia Recommend ophthalmology consult for evaluation of endophthalmitis Qualifiers: Sepsis type: Aurora Qualified Code(s): B37.7 - Candidal sepsis SNOMED Code(s): 07509778 (2) Candidemia Current Visit: Yes Status: Acute Aurora glabrata candidemia Likely source is urinary tract with indwelling Chang catheter Patient initially started on micafungin Okay to de-escalate due to pansensitive culture Treatment with 14 days total following first negative blood culture Recommend ophthalmology consult as above SNOMED Code(s): 416410975 (3) Bacteremia due to Enterococcus Current Visit: Yes Status: Acute Known history of Enterococcus faecalis bacteremia on previous admission Patient was discharged on amoxicillin for a total of 14 day course however did not complete this because he was readmitted Blood cultures have not been positive on this admission Was started on vancomycin and Zosyn at time of readmission We will stop vancomycin however continue Zosyn for 1 more day to finish total course SNOMED Code(s): 499499138613, 632313835625 (4) UTI (urinary tract infection) Current Visit: Yes Status: Acute Aurora UTI Yeast was noted in the patient's urine Treatment as above Qualifiers: Urinary tract infection type: acute cystitis Hematuria presence: with hematuria Qualified Code(s): N30.01 - Acute cystitis with hematuria SNOMED Code(s): 06601096 (5) Diabetes mellitus Current Visit: Yes Status: Chronic Poorly controlled diabetes mellitus Recommend that the patient's blood glucose be treated for goal blood glucose less than 180 Qualifiers: Diabetes mellitus type: type 2 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 remote computer terminal operator insulin use status Diabetes mellitus complication status: without complication Qualified Code(s): E11.9 - Type 2 diabetes mellitus without complications SNOMED Code(s): 78391993 (6) Hospital acquired PNA Current Visit: No Status: Ruled-out Do not suspect hospital-acquired pneumonia given patient's clinical picture SNOMED Code(s): 512258886 (7) Acute kidney injury Current Visit: Yes Status: Acute Acute kidney injury on presentation Likely secondary to sepsis Resolved at this time SNOMED Code(s): 17045522, 67211113 (8) Incontinence without sensory awareness Current Visit: No Status: Acute Incontinence Avoid Chang catheterization if possible due to chronic infection SNOMED Code(s): 573482547 Past Med Surg Social Fam HX - Past Medical History Medical history: cancer, CHF, CVA, diabetes, hyperlipidemia, hypertension, TIA Additional medical history: breast CA Psychiatric history: depression - Past Surgical History Additional surgical history: right breast removed in 2001, breast cancer. right foot surgery and left hand surgery - Social History Smoking Status: Former smoker Smokeless Tobacco Status: No Alcohol use: none Drug use: none - Family History Father Living Status: Hx Family Cancer: Yes Hx Family Endocrine Disorder: Yes Mother Adopted: No Family Member Ethnicity: Non- Living Status: Hx Family Cardiac Disorders: No Hx Family Respiratory Disorders: No Hx Family Cancer: Yes Hx Family GI Disorders: No Hx Family Endocrine Disorder: No Hx Family Neuromuscular Disorders: No Hx Family Neurologic Disorders: No Hx Family HEENT Disorders: No Hx Family Autoimmune Disorders: No Consult Discharge Plan - Plan Referrals: NONE,PCP [Primary Care Provider] - - Attending Attestation I examined this patient and my medical decision-making was reviewed with the Resident Physician. I agree with the documented findings, disposition and treatment plan as described except to the extent set forth below. This is an addendum to original report dictated by resident physician. Please refer to residents note for full detail. Patient is a 72-year-old gentleman with past medical history mentioned below and treated to [place] with weakness, fatigue, subjective fevers at home and urinary incontinence. We are asked to evaluate the patient for sepsis and candidemia with Aurora glabrata and concern for possible pneumonia. Currently patient laying in bed appears comfortable awake alert oriented answers questions. Physical exam as above. Patient also complains of constipation and has not had a bowel movement in 3 days. Assessment and plan: 1.Sepsis secondary to candidemia 2.Candidemia with Aurora glabrata 2/2 sets positive 09/15/2018. Repeat cultures 09/17/2018 no growth to date 3.Recent Enterococcus faecalis ampicillin sensitive bacteremia 09/06/2018 was being treated with amoxicillin as an outpatient 4.Diabetes mellitus type 2 5.Acute kidney injury secondary to sepsis resolved 6.constipation Recommendations: DC micafungin Start Diflucan 800 mg daily; creatinine clearance 50 no need to dose adjust Continue Zosyn for 24 more hours to finish a 14 day course treatment of the Enterococcus faecalis bacteremia Stop vancomycin I am not concerned for healthcare associated pneumonia Monitor labs and for drug toxicity Duration of treatment likely 14 days
[2018-09-19 09:53] LABS: Basophils % 0.7 %; Eosinophils # 0.1 K/mcL (0.0-0.6); Eosinophils % 2.4 %; Hematocrit 34.6 % (37.5-50.1); Hemoglobin 11.7 g/dL (12.9-16.9); Immature Granulocytes % 0.5 % (0-4); Lymphocytes # 1.6 K/mcL (0.6-4.6); Mean Corpuscular HGB Conc 33.8 g/dL (31.6-35.5); Mean Corpuscular Hemoglobin 29.3 pg (28.0-33.3); Mean Corpuscular Volume 86.5 fL (83.0-100.0); Mean Platelet Volume 10.4 fL (9.4-12.4); Monocytes # 0.5 K/mcL (0.0-1.3); Monocytes % 8.2 %; Neutrophils # 3.5 K/mcL (1.6-8.9); Platelet Count 223 K/mcL (140-400); Red Cell Distribution Width 12.8 % (11.5-14.5); Segmented Neutrophils % 60.2 %; White Blood Count 5.8 K/mcL (4.3-11.1)
[2018-09-19 10:01] LABS: BUN/Creatinine Ratio 14 (6-26); Blood Urea Nitrogen 17 mg/dL (8-23); Calcium 8.8 mg/dL (8.6-10.3); Carbon Dioxide 24 mEq/L (23-29); Chloride 105 mEq/L (98-107); Glucose 273 mg/dL (70-105); Magnesium 1.5 mg/dL (1.6-2.6); Osmolality,Calculated 297 (280-300); Phosphorous 3.1 mg/dL (2.7-4.5); Potassium 4.1 mEq/L (3.5-5.1); Sodium 138 mEq/L (136-145); eGFR For African Americans > 60 (> 60); eGFR For Non-African Americans > 60 (> 60)
[2018-09-19] MEDS ORDERED: Micafungin 100 MG in 0.9 % Sodium Chloride Mini Bag 100 ML IVPB SCH (13:30)
[2018-09-19] MEDS: Micafungin 100 MG in 0.9 % Sodium Chloride Mini Bag 100 ML IVPB SCH (14:32)
[2018-09-19] MEDS ORDERED: Fluconazole 400 MG/200 ML 400 MG/200 ML BAG IVPB SCH (15:15)
[2018-09-19 15:19] LABS: Influenza B IgG 1.92 IV (<=0.89); Influenza B IgM 0.89 IV (<=0.89)
--- NOTE | 2018-09-19 19:02 | Internal Medicine Consult Note ---
Date of Encounter: 09/19/18 Time of Encounter: 18:56 Internal Medicine - CN: HPI - Data of Consult Requesting Physician: Yoli Mason MD - Consult Narrative History of present illness: Mr. Khanna is a 72 year old male Past Med Surg Social Fam HX - Past Medical History Medical history: cancer, CHF, CVA, diabetes, hyperlipidemia, hypertension, TIA Additional medical history: breast CA Psychiatric history: depression - Past Surgical History Additional surgical history: right breast removed in 2001, breast cancer. right foot surgery and left hand surgery - Social History Smoking Status: Former smoker Smokeless Tobacco Status: No Alcohol use: none Drug use: none - Family History Father Living Status: Hx Family Cancer: Yes Hx Family Endocrine Disorder: Yes Mother Adopted: No Family Member Ethnicity: Non- Living Status: Hx Family Cardiac Disorders: No Hx Family Respiratory Disorders: No Hx Family Cancer: Yes Hx Family GI Disorders: No Hx Family Endocrine Disorder: No Hx Family Neuromuscular Disorders: No Hx Family Neurologic Disorders: No Hx Family HEENT Disorders: No Hx Family Autoimmune Disorders: No Internal Medicine - CN: Meds Atorvastatin [Lipitor] 40 mg PO HS 10/04/17 [History] Escitalopram [Lexapro] 10 mg PO DAILY 10/04/17 [History] rOPINIRole [Requip] 0.25 mg PO HS 10/04/17 [History] Nitroglycerin 0.4 mg SL Q5MIN PRN 30 Days #28 tab.subl 10/06/17 [Rx] Amitriptyline [Elavil] 25 mg PO HS 07/18/18 [History] Insulin Human Regular [HumuLIN R] 11 unit SQ TIDAC 07/18/18 [History] Metformin HCl 1,000 mg PO BIDWM 07/18/18 [History] Furosemide [Lasix] 40 mg PO DAILY 09/06/18 [History] Potassium Chloride [Klor-Con 10] 10 meq PO DAILY 09/06/18 [History] Amoxicillin [Amoxil] 500 mg PO TID 10 Days #30 capsule 09/10/18 [Rx] Glucagon,Human Recombinant [Glucagen] 1 mg IM PRN PRN 09/15/18 [History] HYDROcodone/Acet 7.5/325 mg [[place] 7.5-325 mg] 1 tab PO Q6H PRN 09/15/18 [History] Insulin Glargine,Hum.rec.anlog [Major Plasencia U-100] 20 unit SQ HS 09/15/18 [History] Omeprazole [PriLOSEC] 20 mg PO DAILY 09/15/18 [History] Allergy/AdvReac Type Severity Reaction Status Date / Time shellfish derived Allergy Hives Verified 09/15/18 16:44 Internal Med - CN: Exam - Constitutional Vitals: Temp Pulse Resp BP Pulse Ox 98.3 F 71 16 153/80 98 09/19/18 16:34 09/19/18 16:34 09/19/18 16:34 09/19/18 16:34 09/19/18 16:34 - Other Additional findings: Consultation is requested due to sepsis/candidemia. Patient denies any problems with his eyes or vision. He denies eye injuries and reports that he had cataract extraction with lens implantation surgery performed by Dr. Nesbitt in [place]. Examination reveals visual acuity without correction of 20/200-1 in the right eye and 20/100 in the left eye (near equivalent Snellen). Pupils were equal round and reactive to light with no relative afferent pupillary defects noted. Confrontation visual jensen were full and normal in both eyes. Extraocular motility testing revealed full excursion of both eyes to all cardinal positions of gaze. Slit-lamp examination revealed normal eyelids and a normal conjunctiva and a clear cornea and a clear and deep anterior chamber in both eyes. The iris was normal in both eyes. Posterior chamber intraocular lens implants were noted in both eyes. The intraocular pressures were 20 mm Hg in the right eye and 18 mm Hg in the left eye via applanation. The pupils were dilated with 1% tropicamide and 2.5% phenylephrine drops. Following dilation of the pupils, further examination revealed well positioned posterior chamber intraocular lens implants with minimal posterior capsular opacification in both eyes. The vitreous was clear in both eyes. The optic nerve heads were healthy in both eyes with a cup-to-disc ratio of 0.35 in the right eye and 0.3 in the left eye. There were scattered intraretinal hemorrhages in the inferior fundus of the right eye. An isolated flame-shaped hemorrhage was noted superior to the optic nerve head in the right eye. The macula was normal in the right eye. The retinal periphery was normal in the right eye. In the left eye, an isolated macular hemorrhage was noted and scattered intraretinal hemorrhages were noted along the inferotemporal vascular arcade. Otherwise, the macula was normal and the retinal periphery was normal in both eyes Impression: 1. No signs of endophthalmitis were appreciated. 2. 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 3. 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 Recommendation: Continue present care and monitoring. Effort should be made to optimize the patient's blood sugar and blood pressure. After discharge the patient should be further evaluated for the signs of diabetic retinopathy and branch retinal vein occlusions noted in both eyes. The patient can do this with his eye care provider of choice. I would be happy to see him in my office should he desire to follow-up with me. Claude Rodriguez D.O. Internal Medicine - CN: Reslt - Labs CBC & Chem 7: 09/19/18 09:21 09/19/18 09:21 Labs: Short CBC 09/19/18 Range/Units 09:21 WBC 5.8 (4.3-11.1) K/mcL Hgb 11.7 L (12.9-16.9) g/dL Hct 34.6 L (37.5-50.1) % Plt Count 223 (140-400) K/mcL Neutrophils # 3.5 (1.6-8.9) K/mcL BMP 09/19/18 09:21 Sodium 138 Potassium 4.1 Chloride 105 Carbon Dioxide 24 BUN 17 Creatinine 1.18 Glucose 273 H Calcium 8.8 - ABG Interpretation ABG results: PT/INR, D-dimer PT 13.7 Seconds (9.4-12.1) H 09/15/18 16:58 Consult Discharge Plan - Plan Referrals: NONE,PCP [Primary Care Provider] -
[2018-09-19] MEDS: rOPINIRole 0.25 MG TABLET PO SCH (22:24)
[2018-09-19] MEDS: Insulin DETEMIR 100 UNIT/ML X5UNITS SQ SCH (22:25)
[2018-09-20] MEDS: Piperacillin/Tazobactam 3.375 GM in 0.9 % Sodium Chloride Mini Bag 100 ML IVPB SCH ×2 (00:26→07:48)
[2018-09-20 05:09] LABS: Basophils % 0.7 %; Eosinophils # 0.2 K/mcL (0.0-0.6); Hematocrit 34.5 % (37.5-50.1); Hemoglobin 11.8 g/dL (12.9-16.9); Immature Granulocytes % 0.3 % (0-4); Lymphocytes # 2.3 K/mcL (0.6-4.6); Lymphocytes % 38.2 %; Mean Corpuscular HGB Conc 34.2 g/dL (31.6-35.5); Mean Corpuscular Hemoglobin 29.6 pg (28.0-33.3); Mean Corpuscular Volume 86.7 fL (83.0-100.0); Mean Platelet Volume 10.5 fL (9.4-12.4); Monocytes # 0.6 K/mcL (0.0-1.3); Monocytes % 9.1 %; Platelet Count 256 K/mcL (140-400); Red Blood Count 3.98 M/mcL (4.19-5.50); Red Cell Distribution Width 12.7 % (11.5-14.5); Segmented Neutrophils % 48.7 %; White Blood Count 6.1 K/mcL (4.3-11.1)
[2018-09-20 05:22] LABS: BUN/Creatinine Ratio 16 (6-26); Blood Urea Nitrogen 16 mg/dL (8-23); Calcium 8.9 mg/dL (8.6-10.3); Carbon Dioxide 24 mEq/L (23-29); Chloride 105 mEq/L (98-107); Glucose 224 mg/dL (70-105); Magnesium 1.4 mg/dL (1.6-2.6); Osmolality,Calculated 290 (280-300); Phosphorous 3.2 mg/dL (2.7-4.5); Potassium 3.5 mEq/L (3.5-5.1); Sodium 136 mEq/L (136-145); eGFR For African Americans > 60 (> 60); eGFR For Non-African Americans > 60 (> 60)
--- NOTE | 2018-09-20 07:34 | Internal Med Progress Note ---
Hospitalist Progress Note - Encounter Date of Encounter: 09/20/18 - Exam Vitals: Temp Pulse Resp BP Pulse Ox 97.7 F 65 17 172/85 97 09/20/18 07:27 09/20/18 07:27 09/20/18 07:27 09/20/18 07:27 09/20/18 07:27 Exam: General appearance: Present: A&O X 3, no acute distress Head exam: Present: normocephalic Respiratory exam: Present: CTAB. Absent: accessory muscle use, rales, rhonchi, wheezes Cardiovascular exam: Present: RRR, +S1, +S2. Absent: diastolic murmur, gallop, rubs, systolic murmur GI/Abdominal exam: Soft, NT, ND, +BS Extremities exam: Absent: pedal edema Neurological exam: Present: alert, oriented X3, no focal deficits. Absent: altered - Assessment and Plan (1) Sepsis Current Visit: Yes Status: Acute Assessment and Plan: Pt has sepsis secondary to bacterial pneumonia and marivel fungemia. Had elevated WBC and tachycardia on admission and opacities on cxr Continue vancomycin, zosyn. Started on micafungin Repeat blood cultures. Unclear source of fungemia Infectious diseases consulted. Will obtain opthalmology consult to assess for endopthalmitis due to candidemia (2) Fungemia Current Visit: Yes Status: Acute Assessment and Plan: See #1. Continue micafungin (3) Hospital acquired PNA Current Visit: No Status: Ruled-out Assessment and Plan: Pt comes in with generalized weakness, fevers and cough with evidence of pneumonia on xray Continue on vanc and zosyn. Follow up blood cultures (4) CHF (congestive heart failure) Current Visit: Yes Status: Chronic Assessment and Plan: Has chronic diastolic CHF with no acute worsening Resume po lasix (5) HTN (hypertension) Current Visit: Yes Status: Chronic Assessment and Plan: we will continue home medication and continue to monitor blood pressure well in patient (6) HLD (hyperlipidemia) Current Visit: Yes Status: Chronic Assessment and Plan: Continue statin (7) Major depressive disorder, recurrent episode Current Visit: Yes Status: Acute Assessment and Plan: Continue home meds (8) Anemia Current Visit: Yes Status: Chronic Assessment and Plan: Monitor CBC and transfuse as indicated (9) Uncontrolled diabetes mellitus Current Visit: Yes Status: Acute Assessment and Plan: we will start the patient into sliding scale with coverage (10) Acute kidney injury Current Visit: Yes Status: Acute Assessment and Plan: Hold lasix. Genlte hydration (11) UTI (urinary tract infection) due to urinary indwelling catheter Current Visit: Yes Status: Acute DVT Prophylaxis: heparin sc - Time Spent with Patient Total time spent is greater than 50% in coordination of care (as documented) at patient's floor/unit and/or counseling patient: Internal Medicine: Result - Labs CBC & Chem 7: 09/20/18 04:03 09/20/18 04:03 Labs: Short CBC 09/19/18 09/20/18 Range/Units 09:21 04:03 WBC 5.8 6.1 (4.3-11.1) K/mcL Hgb 11.7 L 11.8 L (12.9-16.9) g/dL Hct 34.6 L 34.5 L (37.5-50.1) % Plt Count 223 256 (140-400) K/mcL Neutrophils # 3.5 3.0 (1.6-8.9) K/mcL BMP 09/19/18 09/20/18 09:21 04:03 Sodium 138 136 Potassium 4.1 3.5 Chloride 105 105 Carbon Dioxide 24 24 BUN 17 16 Creatinine 1.18 0.97 Glucose 273 H 224 H Calcium 8.8 8.9 - ABG Interpretation ABG results: PT/INR, D-dimer PT 13.7 Seconds (9.4-12.1) H 09/15/18 16:58 Consult Discharge Plan - Plan Referrals: NONE,PCP [Primary Care Provider] - (1) Sepsis Qualifiers: Qualified Code(s): A41.9 - Sepsis, unspecified organism (5) HTN (hypertension) Qualifiers: Hypertension type: essential hypertension Qualified Code(s): I10 - Essential (primary) hypertension (6) HLD (hyperlipidemia) Qualifiers: Hyperlipidemia type: unspecified Qualified Code(s): E78.5 - Hyperlipidemia, unspecified (7) Major depressive disorder, recurrent episode Qualifiers: Major depression episode severity: moderate Qualified Code(s): F33.1 - Major depressive disorder, recurrent, moderate (8) Anemia Qualifiers: Anemia type: unspecified type Qualified Code(s): D64.9 - Anemia, unspecified (9) Uncontrolled diabetes mellitus Qualifiers: Diabetes mellitus type: type 1 Glycemic state: with hyperglycemia Qualified Code(s): E10.65 - Type 1 diabetes mellitus with hyperglycemia
[2018-09-20] MEDS: Insulin LISPRO 300 UNITS/3 ML VIAL SQ SCH ×2 (07:47→12:28)
[2018-09-20] MEDS: *HR* Heparin 5,000 UNIT/ML VIAL SQ SCH (07:47)
[2018-09-20] MEDS: Furosemide 40 MG TABLET PO SCH (07:49)
--- NOTE | 2018-09-20 08:20 | Infectious Disease Progress No ---
ID Progress Note Date of Encounter: 09/20/18 Time of Encounter: 09:00 - Subjective Subjective: Patient is resting comfortably in bed at time of examination. He has no acute complaints today. He continues to have incontinence at this time, however this is unchanged from previous. He was afebrile overnight, and did not feel ill. - Objective CBC & Chem 7: 09/20/18 04:03 09/20/18 04:03 - Exam Vitals: Temp Pulse Resp BP Pulse Ox 97.7 F 65 17 172/85 97 09/20/18 07:27 09/20/18 07:27 09/20/18 07:27 09/20/18 07:27 09/20/18 07:27 Exam: Gen: Vitals noted. No acute distress. Eyes: anicteric sclerae, moist conjunctivae; no lid-lag; Pupils equal and reactive to light HENT: Atraumatic; oropharynx clear with moist mucous membranes and no mucosal ulcerations; normal hard and soft palate Neck: Trachea midline; supple, no thyromegaly or lymphadenopathy Cardiac: RRR, no murmur, +S1/S2 Pulmonary: CTA bilaterally, no wheezes, rales or rhonchi, equal chest expansion Abdomen: soft, nontender, no guarding. No masses or hepatosplenomegaly MSK: ROM intact, no joint swelling noted Extremities: no BLE edema, nontender calf, no cyanosis or clubbing Skin: Normal temperature, turgor; no ulcers or subcutaneous nodules. Patient has dry skin and erythema around his mouth and face. Neuro: moves all extremities, no focal deficits. Psych: Appropriate mood and behavior. A&Ox3 - Assessment and Plan (1) Sepsis Status: Acute Sepsis upon arrival, since resolved Causative organism: Aurora glabrata, source: Urinary tract SIRS criteria: WBC 13.4, HR 104, RR 20, End organ damage with MELONY CXR 09/15/18 shows bibasilar opacities, possible atelectasis vs pna TTE 09/17/18 essentially unremarkable without evidence of vegetations Vitals have improved, WBC now 5.3 Cultures 09/15/18 Blood cultures positive for aurora glabrata x2, pansensitive 09/15/18 Urine culture positive for aurora species 09/17/18 Blood cultures NGTD 09/06/18 Blood cultures positive for Enterococcus faecalis x2 (pansensitive) 09/07/18 Blood cultures negative x2 ABX Zosyn Day 6 Fluconazole Day 1 Recommendations Continue treatment of Candidemia, will require 14d from first negative blood culture Okay to desescalate to diflucan 800mg daily. Will need CBC + CMP weekly for monitoring, 09/27/18 is appropriate Likely stop date 10/01/18 for diflucan No dose adjustment needed for CrCl ~50 Stop Zosyn today Follow-up with PCP is acceptable, no ID follow-up needed Qualifiers: Sepsis type: Aurora Qualified Code(s): B37.7 - Candidal sepsis SNOMED Code(s): 50414234 (2) Candidemia Status: Acute Aurora glabrata candidemia Likely source is urinary tract with indwelling Chang catheter Patient initially started on micafungin Okay to de-escalate due to pansensitive culture Fluconazole 800mg PO on discharge Treatment with 14 days total following first negative blood culture Ophthalmology consult was acceptable SNOMED Code(s): 048956358 (3) Bacteremia due to Enterococcus Status: Acute Known history of Enterococcus faecalis bacteremia on previous admission Patient was discharged on amoxicillin for a total of 14 day course however did not complete this because he was readmitted Blood cultures have not been positive on this admission Treatment course is complete at this time SNOMED Code(s): 793833131219, 446042293085 (4) UTI (urinary tract infection) Status: Acute Aurora UTI Yeast was noted in the patient's urine Treatment as above Qualifiers: Urinary tract infection type: acute cystitis Hematuria presence: with hematuria Qualified Code(s): N30.01 - Acute cystitis with hematuria SNOMED Code(s): 42196672 (5) Diabetes mellitus Status: Chronic Poorly controlled diabetes mellitus Recommend that the patient's blood glucose be treated for goal blood glucose less than 180 Qualifiers: Diabetes mellitus type: type 2 Diabetes mellitus chcf insulin use: unspecified rodent exterminator insulin use status Diabetes mellitus complication status: without complication Qualified Code(s): E11.9 - Type 2 diabetes mellitus without complications SNOMED Code(s): 74757938 (6) Acute kidney injury Status: Acute Acute kidney injury on presentation Likely secondary to sepsis Resolved at this time SNOMED Code(s): 73409925, 27369077 (7) Incontinence without sensory awareness Status: Acute Incontinence Avoid Chang catheterization if possible due to chronic infection SNOMED Code(s): 453047035 Consult Discharge Plan - Plan Referrals: NONE,PCP [Primary Care Provider] - (Patient is from [place] ) Prescriptions: Fluconazole [Diflucan] 800 mg PO DAILY 14 Days #56 tab - Attending Attestation I examined this patient and my medical decision-making was reviewed with the Resident Physician. I agree with the documented findings, disposition and treatment plan as described except to the extent set forth below. Assessment and plan: 1.Sepsis secondary to candidemia 2.Candidemia with Aurora glabrata / sets positive 09/15/2018. Repeat cultures 09/17/2018 no growth to date 3.Recent Enterococcus faecalis ampicillin sensitive bacteremia 09/06/2018 was being treated with amoxicillin as an outpatient 4.Diabetes mellitus type 2 5.Acute kidney injury secondary to sepsis resolved 6.constipation Recommendations: Appreciate ophthalmology evaluation DC on fluconazole 800 mg daily through 10/01/2018 Discussed with the pharmacy team and the hospitalist team
[2018-09-20] MEDS ORDERED: Fluconazole 400 MG/200 ML 400 MG/200 ML BAG IVPB SCH ×2 (09:00→10:00)
--- NOTE | 2018-09-20 11:50 | Discharge Summary ---
Date of Encounter: 09/20/18 Time of Encounter: 11:30 - Discharge Diagnosis (1) Sepsis Priority: Primary Status: Acute Assessment and Plan: 72-year-old male with history of CVA, CHF, diabetes who was recently discharged from the hospital after being treated for bacteremia secondary to urinary tract infection and today presented with a fever and generalized weakness associated with some confusion as reported by his family. The patient was evaluated by the ER staff and his chest x-ray revealed Fluctuating bibasilar opacities or most consistent with atelectasis. the patient is confused and further history cannot be obtained the patient was admitted for further evaluation and management of hospital-acquired pneumonia He was assessed with sepsis secondary to bacterial pneumonia and marivel fungemia secondary toUTI with indwelling catheter. He had elevated WBC and tachycardia on admission and opacities on cxr. He had enteroccous in the blood on a previous admission for which he was suposed to complete a course of aug mentin. He was started on vancomycin and zosyn and completed a course of zosyn. He was improving but his blood cultures grew candiada glabrata likely from fungal UTI. He was started on micafungin and seen by ID who recommneded a 14 day course of po fluconazole. Repeat blood cultures are prelim negative. He was seen by opthalmology and had an eye exam to rule out endopthalmitis which was negative. 35 minutes was spent discharging this patient Qualifiers: Qualified Code(s): A41.9 - Sepsis, unspecified organism (2) Fungemia Priority: Primary Status: Acute (3) Hospital acquired PNA Priority: Primary Status: Ruled-out (4) HTN (hypertension) Priority: Primary Status: Chronic Qualifiers: Hypertension type: essential hypertension Qualified Code(s): I10 - Essential (primary) hypertension (5) HLD (hyperlipidemia) Priority: Primary Status: Chronic Qualifiers: Hyperlipidemia type: unspecified Qualified Code(s): E78.5 - Hyperlipidemia, unspecified (6) Major depressive disorder, recurrent episode Priority: Primary Status: Acute Qualifiers: Major depression episode severity: moderate Qualified Code(s): F33.1 - Major depressive disorder, recurrent, moderate (7) Anemia Priority: Primary Status: Chronic Qualifiers: Anemia type: unspecified type Qualified Code(s): D64.9 - Anemia, unspecified (8) Uncontrolled diabetes mellitus Priority: Primary Status: Acute Qualifiers: Diabetes mellitus type: type 1 Glycemic state: with hyperglycemia Qualified Code(s): E10.65 - Type 1 diabetes mellitus with hyperglycemia (9) Acute kidney injury Priority: Primary Status: Acute (10) UTI (urinary tract infection) due to urinary indwelling catheter Priority: Primary Status: Acute Qualifiers: Qualified Code(s): T83.511A - Infection and inflammatory reaction due to indwelling urethral catheter, initial encounter; N39.0 - Urinary tract infection, site not specified Hospital course: Mr. Khanna is a 72 year old male - Time Spent with Patient Total time spent providing and/or coordinating discharge services: - Discharge Medications Prescriptions: New Fluconazole [Diflucan] 800 mg PO DAILY 14 Days #56 tab Continued rOPINIRole [Requip] 0.25 mg PO HS Atorvastatin [Lipitor] 40 mg PO HS Escitalopram [Lexapro] 10 mg PO DAILY Nitroglycerin 0.4 mg SL Q5MIN PRN 30 Days #28 tab.subl PRN Reason: Chest Pain Amitriptyline [Elavil] 25 mg PO HS Insulin Human Regular [HumuLIN R] 11 unit SQ TIDAC Metformin HCl 1,000 mg PO BIDWM Furosemide [Lasix] 40 mg PO DAILY Potassium Chloride [Klor-Con 10] 10 meq PO DAILY Glucagon,Human Recombinant [Glucagen] 1 mg IM PRN PRN PRN Reason: See Comments HYDROcodone/Acet 7.5/325 mg [[place] 7.5-325 mg] 1 tab PO Q6H PRN PRN Reason: Pain Insulin Glargine,Hum.rec.anlog [Basaglar Kwikpen U-100] 20 unit SQ HS Omeprazole [PriLOSEC] 20 mg PO DAILY Home Medications: Atorvastatin [Lipitor] 40 mg PO HS 10/04/17 [History] Escitalopram [Lexapro] 10 mg PO DAILY 10/04/17 [History] rOPINIRole [Requip] 0.25 mg PO HS 10/04/17 [History] Nitroglycerin 0.4 mg SL Q5MIN PRN 30 Days #28 tab.subl 10/06/17 [Rx] Amitriptyline [Elavil] 25 mg PO HS 07/18/18 [History] Insulin Human Regular [HumuLIN R] 11 unit SQ TIDAC 07/18/18 [History] Metformin HCl 1,000 mg PO BIDWM 07/18/18 [History] Furosemide [Lasix] 40 mg PO DAILY 09/06/18 [History] Potassium Chloride [Klor-Con 10] 10 meq PO DAILY 09/06/18 [History] Glucagon,Human Recombinant [Glucagen] 1 mg IM PRN PRN 09/15/18 [History] HYDROcodone/Acet 7.5/325 mg [[place] 7.5-325 mg] 1 tab PO Q6H PRN 09/15/18 [History] Insulin Glargine,Hum.rec.anlog [Basaglar Kwikpen U-100] 20 unit SQ HS 09/15/18 [History] Omeprazole [PriLOSEC] 20 mg PO DAILY 09/15/18 [History] Fluconazole [Diflucan] 800 mg PO DAILY 14 Days #56 tab 09/20/18 [Rx] Allergies/Adverse Reactions: Allergy/AdvReac Type Severity Reaction Status Date / Time shellfish derived Allergy Hives Verified 09/15/18 16:44 Date of admission: 09/16/18 20:11 Primary care physician: PCP NONE Consults: 09/15/18 05:55 Consult to Automotive Collision Repair Instructor [CONS] Routine Reason for SW Consult: currently ecf for rehab, services 09/15/18 08:44 Consult to Nurse Navigator [CONS] Routine Comment: 09/17/18 07:38 Consult to Infectious Diseases [CONS] Routine Consulting Provider: Infectious Disease Symone Reason for Consult: marivel fungemia Call Completed: No 09/19/18 07:32 Consult to Physician [CONS] Routine Consulting Provider: Claude Rodriguez Reason for Consult: fungemia for eye exam Call Completed: Yes - Constitutional Vitals: Temp Pulse Resp BP Pulse Ox 97.7 F 65 17 168/97 94 09/20/18 11:31 09/20/18 11:31 09/20/18 11:31 09/20/18 11:31 09/20/18 11:31 Exam: NAD - Head Head exam: Present: atraumatic, normocephalic - Eye Eye exam: Present: PERRL, conjuntiva pink, sclera anicteric Pupils: Present: PERRL - Neck Neck exam general surgery: Present: supple, trachea midline. Absent: lymphadenopathy - Respiratory Respiratory exam: Present: CTAB. Absent: accessory muscle use, rales, rhonchi, wheezes - Cardiovascular Cardiovascular exam: Present: RRR, +S1, +S2. Absent: diastolic murmur, gallop, rubs, systolic murmur - GI/Abdominal GI/Abdominal exam: Present: normal bowel sounds, soft, no peritoneal signs. Absent: distended, tenderness - Extremities Exam Extremities exam: Present: warm, radial pulses palpable and symmetrical. Absent: calf tenderness, cyanotic, pedal edema - Neurological Exam Neurological exam: Present: CN II-XII intact, oriented X3, no focal deficits. Absent: pronater drift, facial droop, speech deficit - Skin Skin exam: Present: dry, intact - Patient Status Disposition: Transfer SNF Condition: Good - Discharge Instructions Follow Up With: NONE,PCP [Primary Care Provider] - (Patient is from [place] ) Forms: ED Satisfaction Letter
[2018-09-20 12:40] VITALS: BP 148/92
--- NOTE | 2018-09-20 13:25 | Physician Discharge Referral ---
- Diagnosis (1) Sepsis Priority: Primary Status: Acute (2) Fungemia Priority: Primary Status: Acute (3) Hospital acquired PNA Priority: Primary Status: Ruled-out (4) CHF (congestive heart failure) Priority: Primary Status: Chronic (5) HTN (hypertension) Priority: Primary Status: Chronic (6) HLD (hyperlipidemia) Priority: Primary Status: Chronic (7) Major depressive disorder, recurrent episode Priority: Primary Status: Acute (8) Anemia Priority: Primary Status: Chronic (9) Uncontrolled diabetes mellitus Priority: Primary Status: Acute (10) Acute kidney injury Priority: Primary Status: Acute (11) UTI (urinary tract infection) due to urinary indwelling catheter Priority: Primary Status: Acute - Transfer Medications Prescriptions: Fluconazole [Diflucan] 800 mg PO DAILY 14 Days #56 tab Home Medications: Atorvastatin [Lipitor] 40 mg PO HS 10/04/17 [History] Escitalopram [Lexapro] 10 mg PO DAILY 10/04/17 [History] rOPINIRole [Requip] 0.25 mg PO HS 10/04/17 [History] Nitroglycerin 0.4 mg SL Q5MIN PRN 30 Days #28 tab.subl 10/06/17 [Rx] Amitriptyline [Elavil] 25 mg PO HS 07/18/18 [History] Insulin Human Regular [HumuLIN R] 11 unit SQ TIDAC 07/18/18 [History] Metformin HCl 1,000 mg PO BIDWM 07/18/18 [History] Furosemide [Lasix] 40 mg PO DAILY 09/06/18 [History] Potassium Chloride [Klor-Con 10] 10 meq PO DAILY 09/06/18 [History] Glucagon,Human Recombinant [Glucagen] 1 mg IM PRN PRN 09/15/18 [History] HYDROcodone/Acet 7.5/325 mg [Tama 7.5-325 mg] 1 tab PO Q6H PRN 09/15/18 [History] Insulin Glargine,Hum.rec.anlog [Basaglar Kwikpen U-100] 20 unit SQ HS 09/15/18 [History] Omeprazole [PriLOSEC] 20 mg PO DAILY 09/15/18 [History] Fluconazole [Diflucan] 800 mg PO DAILY 14 Days #56 tab 09/20/18 [Rx] Allergies/Adverse Reactions: Allergy/AdvReac Type Severity Reaction Status Date / Time shellfish derived Allergy Hives Verified 09/15/18 16:44 - Respiratory Orders Smoking Cessation: Smoking cessation has been advised. For more information, call the [place] Tobacco Quit Line at 9-111-GDJL-NOW. - Mobility Orders Ambulate - Rehabiliation Orders Rehab Orders: Evaluation for Physical Therapy, Evaluation for Occupational Therapy CERTIFICATION: I certify that the transfer of the above named patient to an Extended Care Facility is necessary for the continuing treatment of the diagnosis listed. The above information is true and accurate reflection of patient's current condition. Confidential - Redisclosure prohibited without a patient's written consent.
== END 2018-09-20 14:37 | DRG 698 ==
LOC: 2ANU 01:28 → EMEROOARM 01:28 → 2ANU 05:00
PROVIDERS: ADMIT Internal Medicine; ATTEND Internal Medicine

== ENCOUNTER 2018-10-14 08:00 | Inpatient (IN) ==
--- NOTE | 2018-10-14 08:11 | Emergency Department Note ---
Disposition Clinical Impression: Hypomagnesemia, Urinary retention, Atrial flutter with rapid ventricular response, New onset atrial flutter Atrial flutter Qualifiers: Atrial flutter type: typical Qualified Code(s): I48.3 - Typical atrial flutter Acute renal failure Qualifiers: Acute renal failure type: unspecified Qualified Code(s): N17.9 - Acute kidney failure, unspecified UTI (urinary tract infection) Qualifiers: Urinary tract infection type: acute cystitis Hematuria presence: without hematuria Qualified Code(s): N30.00 - Acute cystitis without hematuria Disposition: Admitted As Inpatient Condition: Fair Time of Disposition: 11:02 General Adult HPI - General Stated complaint: KEVIN Time Seen by Provider: 10/14/18 08:02 Source: patient, EMS Mode of arrival: EMS Limitations: no limitations Nursing Notes Reviewed: Yes Vital Signs Reviewed: Yes - History of Present Illness HPI Narrative: Male patient visiting to the emergency department from the senior living. Is being sent in for tachycardia. Patient denies any chest pain or shortness of breath. Denies a feeling like his heart is racing. States he has never had this happen to him before. Has no complaints currently. EMS reports that the patient was noted to be tachycardic and had no history of this at the senior living so he was sent here for this. - Related Data Home Medications Medication Instructions Recorded Confirmed Atorvastatin [Lipitor] 40 mg PO HS 10/04/17 10/14/18 Escitalopram [Lexapro] 10 mg PO DAILY 10/04/17 10/14/18 rOPINIRole [Requip] 0.25 mg PO HS 10/04/17 10/14/18 Amitriptyline [Elavil] 25 mg PO HS 07/18/18 10/14/18 Insulin Human Regular [HumuLIN R] 0 unit SQ TIDAC 07/18/18 10/14/18 Metformin HCl 1,000 mg PO BIDWM 07/18/18 10/14/18 Furosemide [Lasix] 40 mg PO DAILY 09/06/18 10/14/18 Potassium Chloride [Klor-Con 10] 10 meq PO BID 09/06/18 10/14/18 Glucagon,Human Recombinant 1 mg IM PRN PRN 09/15/18 10/14/18 [Glucagen] HYDROcodone/Acet 7.5/325 mg [[place] 1 tab PO Q6H PRN 09/15/18 10/14/18 7.5-325 mg] Insulin Glargine,Hum.rec.anlog 18 unit SQ HS 09/15/18 10/14/18 [Basagldevi Calvillopen U-100] Omeprazole [PriLOSEC] 20 mg PO DAILY 09/15/18 10/14/18 Ondansetron HCl [Zofran] 4 mg PO TID PRN 10/14/18 10/14/18 Previous Rx's Medication Instructions Recorded Nitroglycerin 0.4 mg SL Q5MIN PRN 30 Days #28 10/06/17 tab.subl Allergies Allergy/AdvReac Type Severity Reaction Status Date / Time shellfish derived Allergy Hives Verified 09/15/18 16:44 All systems ED: reviewed and negative except as stated. Review of Systems: As Per HPI Constitutional: Denies: fever, chills Cardiovascular: Denies: chest pain, palpitations, syncope Respiratory: Denies: cough, dyspnea Gastrointestinal: Denies: abdominal pain, nausea, vomiting, diarrhea Genitourinary: Reports: other (States that he is constantly dribbling urine.). Denies: urgency, dysuria, frequency, hematuria Musculoskeletal: Denies: back pain Past Medical History - Past Medical History Attestation: Yes The following information was validated with the patient. Source: patient Medical history: Reports: cancer, CHF, CVA, diabetes, hyperlipidemia, hypertension, TIA Psychiatric history: Reports: depression - Social History Smoking Status: Former smoker Smokeless Tobacco Status: No Alcohol use: Reports: none Drug use: Reports: none Physical Exam - General Limitations: no limitations General appearance: alert, in no apparent distress - Head Head exam: atraumatic, normocephalic, normal inspection - Eye Eye exam: Present: normal appearance, PERRL, EOMI - ENT ENT exam: normal exam, normal oropharynx, mucous membranes moist - Neck Neck exam: Present: normal inspection, full ROM, trachea midline - Chest Chest inspection: Present: normal inspection, symmetric chest wall rise. Absent: tenderness - Respiratory Respiratory exam: Present: normal lung sounds bilaterally. Absent: respiratory distress, accessory muscle use - Cardiovascular Cardiovascular exam: Present: normal rhythm, tachycardia, normal heart sounds - Abdominal Exam Abdominal exam: Present: soft, Non-Tender. Absent: tenderness, distention, guarding, rebound, rigidity, organomegaly, Riley's sign, Rovsing's sign, tenderness at McBurney's Point - Extremities Exam Extremities exam: Present: normal inspection, full ROM, normal capillary refill. Absent: tenderness, pedal edema, calf tenderness - Back Exam Back exam: Present: normal inspection, full ROM. Absent: tenderness - Neurological Exam Neurological exam: Present: alert - Psychiatric Psychiatric exam: Present: normal affect, normal mood - Skin Skin exam: Present: warm, dry, intact, normal color Course Course Narrative: Patient appears well. Tachycardic. Normotensive. Sound to be in a flutter on EKG. No history of this in his chart. History of A. fib. He denies any chest pain or soreness of breath. He appears well. Patient did receive a Cardizem was as well as placed on a Cardizem drip. Patient did become mildly hypotensive after the bolus was given however this responded well to fluids. Repeat EKG was captured and noted to be a flutter at a slower rate. No elevation in troponin. He does report frequently dribbling urine. Denies any dysuria. He is not febrile. Did have a mild leukocytosis at 12. We discussed this with the hospitalist to was aware of the patient at his previous admissions and was concerned for possible septicemia secondary to a UTI that he had presented with before. We did get a UA at that time. This did show concerns for possible UTI. We did send this for culture. He discussed this with the ID doctor and will prescribe antibiotics. - Reevaluation(s) Reevaluation #1: Patient did have an echocardiogram on September 18 which showed an ejection fraction of 60%. - Consultations Consultation #1: I spoke with Dr CHAUHAN. He is concerned that the Pt may have another urinary tract infection as he was recently admitted for fungal septicemia secondary to a UTI. He is requesting a urinalysis and lactic acid as well as blood cultures. He is requesting that we contact him back for further triage capabilities after the UA has resulted Time: 09:50 Consultation #2: I spoke with Dr Chauhan. He states that the artery talk to the ID doctor about the anabolic choice for the urinalysis and he will place those. He is accepting the patient at this time in stable condition. Time: 11:01 Vital Signs Temperature 98.4 F 10/14/18 08:09 Pulse Rate 136 10/14/18 08:09 Respiratory Rate 16 10/14/18 08:09 Blood Pressure 104/77 10/14/18 08:09 O2 Sat by Pulse Oximetry 92 10/14/18 08:09 Temperature 98.1 F 10/17/18 15:05 Pulse Rate 83 10/17/18 15:05 Respiratory Rate 16 10/17/18 15:05 Blood Pressure 176/77 10/17/18 15:05 O2 Sat by Pulse Oximetry 95 10/17/18 15:05 Oxygen Delivery Oxygen Delivery Room Air Medical Decision Making - Medical Records Medical records reviewed: Yes I reviewed the patient's medical records. - Lab Data Lab results reviewed: Yes I reviewed the patient's lab results. Result diagrams: 10/17/18 05:40 10/17/18 05:40 Lab Results 10/14/18 10/14/18 10/14/18 Range/Units 08:19 08:19 08:19 WBC 12.1 H (4.3-11.1) K/mcL RBC 3.93 L (4.19-5.50) M/mcL Hgb 11.3 L (12.9-16.9) g/dL Hct 34.2 L (37.5-50.1) % MCV 87.0 (83.0-100.0) fL MCH 28.8 (28.0-33.3) pg MCHC 33.0 (31.6-35.5) g/dL RDW 13.7 (11.5-14.5) % Plt Count 214 (140-400) K/mcL MPV 10.9 (9.4-12.4) fL Immature Gran % 0.4 (0-4) % Seg Neutrophils % 73.4 % Lymphocytes % 15.9 % Monocytes % 7.6 % Eosinophils % 2.1 % Basophils % 0.6 % Neutrophils # 8.9 (1.6-8.9) K/mcL Lymphocytes # 1.9 (0.6-4.6) K/mcL Monocytes # 0.9 (0.0-1.3) K/mcL Eosinophils # 0.3 (0.0-0.6) K/mcL Basophils # 0.1 (0.0-0.2) K/mcL PT (9.4-12.1) Seconds INR APTT 34.8 (26.0-36.0) Seconds Heparin Anti-Xa, Unfract (0.30-0.70) IU/mL Sodium 132 L (136-145) mEq/L Potassium 4.4 (3.5-5.1) mEq/L Chloride 97 L (98-107) mEq/L Carbon Dioxide 21 L (23-29) mEq/L BUN 34 H (8-23) mg/dL Creatinine 1.96 H (0.70-1.30) mg/dL Est GFR ( Amer) 41 L (> 60) Est GFR (Non-Af Amer) 34 L (> 60) BUN/Creatinine Ratio 17 (6-26) Glucose 139 H (70-105) mg/dL POC Glucose (70-99) mg/dL Calculated Osmolality 284 (280-300) Lactic Acid (0.5-2.2) mmol/L Calcium 8.4 L (8.6-10.3) mg/dL Magnesium 0.9 L (1.6-2.6) mg/dL Troponin I < 0.03 (< 0.04) ng/mL Procalcitonin (0.00-0.15) ng/mL Urine Color (Yellow) Urine Clarity (Clear) Urine pH (5.0-8.0) pH Units Ur Specific [place] (1.010-1.025) Urine Protein (Neg-Trace) mg/dL Urine Glucose (UA) (Normal) mg/dL Urine Ketones (Negative) mg/dL Urine Blood (Negative) Urine Nitrite (Negative) Urine Bilirubin (Negative) Urine Urobilinogen (Normal) mg/dL Ur Leukocyte Esterase (Negative) Urine Microscopic RBC (0-3) per hpf Urine Microscopic WBC (0-3) per hpf Ur Squamous Epith Cells (None-Few) per lpf Urine Bacteria (None-Few) per hpf Ur Culture Indicated? (NO) 10/14/18 10/14/18 10/14/18 Range/Units 10:01 10:21 12:52 WBC (4.3-11.1) K/mcL RBC (4.19-5.50) M/mcL Hgb (12.9-16.9) g/dL Hct (37.5-50.1) % MCV (83.0-100.0) fL MCH (28.0-33.3) pg MCHC (31.6-35.5) g/dL RDW (11.5-14.5) % Plt Count (140-400) K/mcL MPV (9.4-12.4) fL Immature Gran % (0-4) % Seg Neutrophils % % Lymphocytes % % Monocytes % % Eosinophils % % Basophils % % Neutrophils # (1.6-8.9) K/mcL Lymphocytes # (0.6-4.6) K/mcL Monocytes # (0.0-1.3) K/mcL Eosinophils # (0.0-0.6) K/mcL Basophils # (0.0-0.2) K/mcL PT 15.4 H (9.4-12.1) Seconds INR 1.4 APTT (26.0-36.0) Seconds Heparin Anti-Xa, Unfract 0.02 L (0.30-0.70) IU/mL Sodium (136-145) mEq/L Potassium (3.5-5.1) mEq/L Chloride (98-107) mEq/L Carbon Dioxide (23-29) mEq/L BUN (8-23) mg/dL Creatinine (0.70-1.30) mg/dL Est GFR ( Amer) (> 60) Est GFR (Non-Af Amer) (> 60) BUN/Creatinine Ratio (6-26) Glucose (70-105) mg/dL POC Glucose (70-99) mg/dL Calculated Osmolality (280-300) Lactic Acid 1.1 (0.5-2.2) mmol/L Calcium (8.6-10.3) mg/dL Magnesium (1.6-2.6) mg/dL Troponin I (< 0.04) ng/mL Procalcitonin (0.00-0.15) ng/mL Urine Color Yellow (Yellow) Urine Clarity Turbid A (Clear) Urine pH 6.0 (5.0-8.0) pH Units Ur Specific [place] 1.012 (1.010-1.025) Urine Protein 100 H (Neg-Trace) mg/dL Urine Glucose (UA) Normal (Normal) mg/dL Urine Ketones Negative (Negative) mg/dL Urine Blood Moderate H (Negative) Urine Nitrite Negative (Negative) Urine Bilirubin Negative (Negative) Urine Urobilinogen Normal (Normal) mg/dL Ur Leukocyte Esterase Large H (Negative) Urine Microscopic RBC Present (0-3) per hpf Urine Microscopic WBC TNTC H (0-3) per hpf Ur Squamous Epith Cells Many H (None-Few) per lpf Urine Bacteria Many H (None-Few) per hpf Ur Culture Indicated? YES A (NO) 10/14/18 10/14/18 10/14/18 Range/Units 12:52 15:10 15:10 WBC (4.3-11.1) K/mcL RBC (4.19-5.50) M/mcL Hgb (12.9-16.9) g/dL Hct (37.5-50.1) % MCV (83.0-100.0) fL MCH (28.0-33.3) pg MCHC (31.6-35.5) g/dL RDW (11.5-14.5) % Plt Count (140-400) K/mcL MPV (9.4-12.4) fL Immature Gran % (0-4) % Seg Neutrophils % % Lymphocytes % % Monocytes % % Eosinophils % % Basophils % % Neutrophils # (1.6-8.9) K/mcL Lymphocytes # (0.6-4.6) K/mcL Monocytes # (0.0-1.3) K/mcL Eosinophils # (0.0-0.6) K/mcL Basophils # (0.0-0.2) K/mcL PT (9.4-12.1) Seconds INR APTT (26.0-36.0) Seconds Heparin Anti-Xa, Unfract (0.30-0.70) IU/mL Sodium (136-145) mEq/L Potassium (3.5-5.1) mEq/L Chloride (98-107) mEq/L Carbon Dioxide (23-29) mEq/L BUN (8-23) mg/dL Creatinine (0.70-1.30) mg/dL Est GFR ( Amer) (> 60) Est GFR (Non-Af Amer) (> 60) BUN/Creatinine Ratio (6-26) Glucose (70-105) mg/dL POC Glucose 131 H (70-99) mg/dL Calculated Osmolality (280-300) Lactic Acid (0.5-2.2) mmol/L Calcium (8.6-10.3) mg/dL Magnesium (1.6-2.6) mg/dL Troponin I < 0.03 (< 0.04) ng/mL Procalcitonin 0.24 H (0.00-0.15) ng/mL Urine Color (Yellow) Urine Clarity (Clear) Urine pH (5.0-8.0) pH Units Ur Specific [place] (1.010-1.025) Urine Protein (Neg-Trace) mg/dL Urine Glucose (UA) (Normal) mg/dL Urine Ketones (Negative) mg/dL Urine Blood (Negative) Urine Nitrite (Negative) Urine Bilirubin (Negative) Urine Urobilinogen (Normal) mg/dL Ur Leukocyte Esterase (Negative) Urine Microscopic RBC (0-3) per hpf Urine Microscopic WBC (0-3) per hpf Ur Squamous Epith Cells (None-Few) per lpf Urine Bacteria (None-Few) per hpf Ur Culture Indicated? (NO) 10/14/18 10/14/18 10/14/18 Range/Units 15:10 16:13 16:27 WBC (4.3-11.1) K/mcL RBC (4.19-5.50) M/mcL Hgb 11.0 L (12.9-16.9) g/dL Hct 34.1 L (37.5-50.1) % MCV (83.0-100.0) fL MCH (28.0-33.3) pg MCHC (31.6-35.5) g/dL RDW (11.5-14.5) % Plt Count (140-400) K/mcL MPV (9.4-12.4) fL Immature Gran % (0-4) % Seg Neutrophils % % Lymphocytes % % Monocytes % % Eosinophils % % Basophils % % Neutrophils # (1.6-8.9) K/mcL Lymphocytes # (0.6-4.6) K/mcL Monocytes # (0.0-1.3) K/mcL Eosinophils # (0.0-0.6) K/mcL Basophils # (0.0-0.2) K/mcL PT (9.4-12.1) Seconds INR APTT (26.0-36.0) Seconds Heparin Anti-Xa, Unfract (0.30-0.70) IU/mL Sodium 132 L (136-145) mEq/L Potassium 4.6 (3.5-5.1) mEq/L Chloride 98 (98-107) mEq/L Carbon Dioxide 22 L (23-29) mEq/L BUN 31 H (8-23) mg/dL Creatinine 1.74 H (0.70-1.30) mg/dL Est GFR ( Amer) 47 L (> 60) Est GFR (Non-Af Amer) 39 L (> 60) BUN/Creatinine Ratio 18 (6-26) Glucose 182 H (70-105) mg/dL POC Glucose 193 H (70-99) mg/dL Calculated Osmolality 285 (280-300) Lactic Acid (0.5-2.2) mmol/L Calcium 8.3 L (8.6-10.3) mg/dL Magnesium 1.3 L (1.6-2.6) mg/dL Troponin I (< 0.04) ng/mL Procalcitonin (0.00-0.15) ng/mL Urine Color (Yellow) Urine Clarity (Clear) Urine pH (5.0-8.0) pH Units Ur Specific [place] (1.010-1.025) Urine Protein (Neg-Trace) mg/dL Urine Glucose (UA) (Normal) mg/dL Urine Ketones (Negative) mg/dL Urine Blood (Negative) Urine Nitrite (Negative) Urine Bilirubin (Negative) Urine Urobilinogen (Normal) mg/dL Ur Leukocyte Esterase (Negative) Urine Microscopic RBC (0-3) per hpf Urine Microscopic WBC (0-3) per hpf Ur Squamous Epith Cells (None-Few) per lpf Urine Bacteria (None-Few) per hpf Ur Culture Indicated? (NO) 10/14/18 10/14/18 10/14/18 Range/Units 19:53 21:42 22:30 WBC (4.3-11.1) K/mcL RBC (4.19-5.50) M/mcL Hgb (12.9-16.9) g/dL Hct (37.5-50.1) % MCV (83.0-100.0) fL MCH (28.0-33.3) pg MCHC (31.6-35.5) g/dL RDW (11.5-14.5) % Plt Count (140-400) K/mcL MPV (9.4-12.4) fL Immature Gran % (0-4) % Seg Neutrophils % % Lymphocytes % % Monocytes % % Eosinophils % % Basophils % % Neutrophils # (1.6-8.9) K/mcL Lymphocytes # (0.6-4.6) K/mcL Monocytes # (0.0-1.3) K/mcL Eosinophils # (0.0-0.6) K/mcL Basophils # (0.0-0.2) K/mcL PT (9.4-12.1) Seconds INR APTT (26.0-36.0) Seconds Heparin Anti-Xa, Unfract 0.61 (0.30-0.70) IU/mL Sodium (136-145) mEq/L Potassium (3.5-5.1) mEq/L Chloride (98-107) mEq/L Carbon Dioxide (23-29) mEq/L BUN (8-23) mg/dL Creatinine (0.70-1.30) mg/dL Est GFR ( Amer) (> 60) Est GFR (Non-Af Amer) (> 60) BUN/Creatinine Ratio (6-26) Glucose (70-105) mg/dL POC Glucose 213 H 230 H (70-99) mg/dL Calculated Osmolality (280-300) Lactic Acid (0.5-2.2) mmol/L Calcium (8.6-10.3) mg/dL Magnesium (1.6-2.6) mg/dL Troponin I (< 0.04) ng/mL Procalcitonin (0.00-0.15) ng/mL Urine Color (Yellow) Urine Clarity (Clear) Urine pH (5.0-8.0) pH Units Ur Specific [place] (1.010-1.025) Urine Protein (Neg-Trace) mg/dL Urine Glucose (UA) (Normal) mg/dL Urine Ketones (Negative) mg/dL Urine Blood (Negative) Urine Nitrite (Negative) Urine Bilirubin (Negative) Urine Urobilinogen (Normal) mg/dL Ur Leukocyte Esterase (Negative) Urine Microscopic RBC (0-3) per hpf Urine Microscopic WBC (0-3) per hpf Ur Squamous Epith Cells (None-Few) per lpf Urine Bacteria (None-Few) per hpf Ur Culture Indicated? (NO) 10/15/18 10/15/1810/15/19 Range/Units 02:12 02:12 05:14 WBC 9.3 (4.3-11.1) K/mcL RBC 3.80 L (4.19-5.50) M/mcL Hgb 10.9 L (12.9-16.9) g/dL Hct 33.1 L (37.5-50.1) % MCV 87.1 (83.0-100.0) fL MCH 28.7 (28.0-33.3) pg MCHC 32.9 (31.6-35.5) g/dL RDW 13.8 (11.5-14.5) % Plt Count 204 (140-400) K/mcL MPV 11.0 (9.4-12.4) fL Immature Gran % 0.4 (0-4) % Seg Neutrophils % 68.6 % Lymphocytes % 20.5 % Monocytes % 7.1 % Eosinophils % 2.8 % Basophils % 0.6 % Neutrophils # 6.4 (1.6-8.9) K/mcL Lymphocytes # 1.9 (0.6-4.6) K/mcL Monocytes # 0.7 (0.0-1.3) K/mcL Eosinophils # 0.3 (0.0-0.6) K/mcL Basophils # 0.1 (0.0-0.2) K/mcL PT (9.4-12.1) Seconds INR APTT (26.0-36.0) Seconds Heparin Anti-Xa, Unfract 0.34 (0.30-0.70) IU/mL Sodium 133 L (136-145) mEq/L Potassium 4.1 (3.5-5.1) mEq/L Chloride 101 (98-107) mEq/L Carbon Dioxide 24 (23-29) mEq/L BUN 25 H (8-23) mg/dL Creatinine 1.42 H (0.70-1.30) mg/dL Est GFR ( Amer) 59 L (> 60) Est GFR (Non-Af Amer) 49 L (> 60) BUN/Creatinine Ratio 18 (6-26) Glucose 181 H (70-105) mg/dL POC Glucose (70-99) mg/dL Calculated Osmolality 285 (280-300) Lactic Acid (0.5-2.2) mmol/L Calcium 8.0 L (8.6-10.3) mg/dL Magnesium 1.3 L (1.6-2.6) mg/dL Troponin I (< 0.04) ng/mL Procalcitonin (0.00-0.15) ng/mL Urine Color (Yellow) Urine Clarity (Clear) Urine pH (5.0-8.0) pH Units Ur Specific [place] (1.010-1.025) Urine Protein (Neg-Trace) mg/dL Urine Glucose (UA) (Normal) mg/dL Urine Ketones (Negative) mg/dL Urine Blood (Negative) Urine Nitrite (Negative) Urine Bilirubin (Negative) Urine Urobilinogen (Normal) mg/dL Ur Leukocyte Esterase (Negative) Urine Microscopic RBC (0-3) per hpf Urine Microscopic WBC (0-3) per hpf Ur Squamous Epith Cells (None-Few) per lpf Urine Bacteria (None-Few) per hpf Ur Culture Indicated? (NO) 10/15/18 10/15/18 10/15/18 Range/Units 07:58 11:50 14:48 WBC (4.3-11.1) K/mcL RBC (4.19-5.50) M/mcL Hgb (12.9-16.9) g/dL Hct (37.5-50.1) % MCV (83.0-100.0) fL MCH (28.0-33.3) pg MCHC (31.6-35.5) g/dL RDW (11.5-14.5) % Plt Count (140-400) K/mcL MPV (9.4-12.4) fL Immature Gran % (0-4) % Seg Neutrophils % % Lymphocytes % % Monocytes % % Eosinophils % % Basophils % % Neutrophils # (1.6-8.9) K/mcL Lymphocytes # (0.6-4.6) K/mcL Monocytes # (0.0-1.3) K/mcL Eosinophils # (0.0-0.6) K/mcL Basophils # (0.0-0.2) K/mcL PT (9.4-12.1) Seconds INR APTT (26.0-36.0) Seconds Heparin Anti-Xa, Unfract (0.30-0.70) IU/mL Sodium (136-145) mEq/L Potassium (3.5-5.1) mEq/L Chloride (98-107) mEq/L Carbon Dioxide (23-29) mEq/L BUN (8-23) mg/dL Creatinine (0.70-1.30) mg/dL Est GFR ( Amer) (> 60) Est GFR (Non-Af Amer) (> 60) BUN/Creatinine Ratio (6-26) Glucose (70-105) mg/dL POC Glucose 132 H 164 H 236 H (70-99) mg/dL Calculated Osmolality (280-300) Lactic Acid (0.5-2.2) mmol/L Calcium (8.6-10.3) mg/dL Magnesium (1.6-2.6) mg/dL Troponin I (< 0.04) ng/mL Procalcitonin (0.00-0.15) ng/mL Urine Color (Yellow) Urine Clarity (Clear) Urine pH (5.0-8.0) pH Units Ur Specific [place] (1.010-1.025) Urine Protein (Neg-Trace) mg/dL Urine Glucose (UA) (Normal) mg/dL Urine Ketones (Negative) mg/dL Urine Blood (Negative) Urine Nitrite (Negative) Urine Bilirubin (Negative) Urine Urobilinogen (Normal) mg/dL Ur Leukocyte Esterase (Negative) Urine Microscopic RBC (0-3) per hpf Urine Microscopic WBC (0-3) per hpf Ur Squamous Epith Cells (None-Few) per lpf Urine Bacteria (None-Few) per hpf Ur Culture Indicated? (NO) 10/15/18 10/16/18 10/16/18 Range/Units 20:12 05:37 05:37 WBC 5.8 (4.3-11.1) K/mcL RBC 3.36 L (4.19-5.50) M/mcL Hgb 9.7 L (12.9-16.9) g/dL Hct 29.1 L (37.5-50.1) % MCV 86.6 (83.0-100.0) fL MCH 28.9 (28.0-33.3) pg MCHC 33.3 (31.6-35.5) g/dL RDW 13.5 (11.5-14.5) % Plt Count 193 (140-400) K/mcL MPV 10.8 (9.4-12.4) fL Immature Gran % 0.7 (0-4) % Seg Neutrophils % 63.3 % Lymphocytes % 20.7 % Monocytes % 7.3 % Eosinophils % 7.5 % Basophils % 0.5 % Neutrophils # 3.7 (1.6-8.9) K/mcL Lymphocytes # 1.2 (0.6-4.6) K/mcL Monocytes # 0.4 (0.0-1.3) K/mcL Eosinophils # 0.4 (0.0-0.6) K/mcL Basophils # 0.0 (0.0-0.2) K/mcL PT (9.4-12.1) Seconds INR APTT (26.0-36.0) Seconds Heparin Anti-Xa, Unfract 0.39 (0.30-0.70) IU/mL Sodium (136-145) mEq/L Potassium (3.5-5.1) mEq/L Chloride (98-107) mEq/L Carbon Dioxide (23-29) mEq/L BUN (8-23) mg/dL Creatinine (0.70-1.30) mg/dL Est GFR ( Amer) (> 60) Est GFR (Non-Af Amer) (> 60) BUN/Creatinine Ratio (6-26) Glucose (70-105) mg/dL POC Glucose 218 H (70-99) mg/dL Calculated Osmolality (280-300) Lactic Acid (0.5-2.2) mmol/L Calcium (8.6-10.3) mg/dL Magnesium (1.6-2.6) mg/dL Troponin I (< 0.04) ng/mL Procalcitonin (0.00-0.15) ng/mL Urine Color (Yellow) Urine Clarity (Clear) Urine pH (5.0-8.0) pH Units Ur Specific [place] (1.010-1.025) Urine Protein (Neg-Trace) mg/dL Urine Glucose (UA) (Normal) mg/dL Urine Ketones (Negative) mg/dL Urine Blood (Negative) Urine Nitrite (Negative) Urine Bilirubin (Negative) Urine Urobilinogen (Normal) mg/dL Ur Leukocyte Esterase (Negative) Urine Microscopic RBC (0-3) per hpf Urine Microscopic WBC (0-3) per hpf Ur Squamous Epith Cells (None-Few) per lpf Urine Bacteria (None-Few) per hpf Ur Culture Indicated? (NO) 10/16/18 10/16/18 10/16/18 Range/Units 05:37 07:47 11:27 WBC (4.3-11.1) K/mcL RBC (4.19-5.50) M/mcL Hgb (12.9-16.9) g/dL Hct (37.5-50.1) % MCV (83.0-100.0) fL MCH (28.0-33.3) pg MCHC (31.6-35.5) g/dL RDW (11.5-14.5) % Plt Count (140-400) K/mcL MPV (9.4-12.4) fL Immature Gran % (0-4) % Seg Neutrophils % % Lymphocytes % % Monocytes % % Eosinophils % % Basophils % % Neutrophils # (1.6-8.9) K/mcL Lymphocytes # (0.6-4.6) K/mcL Monocytes # (0.0-1.3) K/mcL Eosinophils # (0.0-0.6) K/mcL Basophils # (0.0-0.2) K/mcL PT (9.4-12.1) Seconds INR APTT (26.0-36.0) Seconds Heparin Anti-Xa, Unfract (0.30-0.70) IU/mL Sodium 136 (136-145) mEq/L Potassium 3.5 (3.5-5.1) mEq/L Chloride 107 (98-107) mEq/L Carbon Dioxide 23 (23-29) mEq/L BUN 10 (8-23) mg/dL Creatinine 1.00 (0.70-1.30) mg/dL Est GFR ( Amer) > 60 (> 60) Est GFR (Non-Af Amer) > 60 (> 60) BUN/Creatinine Ratio 10 (6-26) Glucose 232 H (70-105) mg/dL POC Glucose 220 H 255 H (70-99) mg/dL Calculated Osmolality 288 (280-300) Lactic Acid (0.5-2.2) mmol/L Calcium 7.6 L (8.6-10.3) mg/dL Magnesium 1.5 L (1.6-2.6) mg/dL Troponin I (< 0.04) ng/mL Procalcitonin (0.00-0.15) ng/mL Urine Color (Yellow) Urine Clarity (Clear) Urine pH (5.0-8.0) pH Units Ur Specific [place] (1.010-1.025) Urine Protein (Neg-Trace) mg/dL Urine Glucose (UA) (Normal) mg/dL Urine Ketones (Negative) mg/dL Urine Blood (Negative) Urine Nitrite (Negative) Urine Bilirubin (Negative) Urine Urobilinogen (Normal) mg/dL Ur Leukocyte Esterase (Negative) Urine Microscopic RBC (0-3) per hpf Urine Microscopic WBC (0-3) per hpf Ur Squamous Epith Cells (None-Few) per lpf Urine Bacteria (None-Few) per hpf Ur Culture Indicated? (NO) - Radiology Data Radiology results reviewed: Yes I reviewed the patient's radiology results. Chest X-Ray 10/14/18 08:08 IMPRESSION: Mild cardiomegaly. No acute cardiopulmonary process. D/ / 10/14/2018 08:33:00 Kiko Jacome MD / [facility] Interpreting Provider: Kiko Jacome MD - EKG Data EKG #1 EKG attestation: Yes I reviewed and interpreted this EKG. EKG results narrative: Repeat EKG after Cardizem was given shows a flutter at a rate of 98. QRS duration is 151. QT is 352. QTC is 450. No signs of acute ischemia. EKG #2 EKG attestation: Yes I reviewed and interpreted this EKG. EKG results narrative: Repeat EKG after Cardizem was given shows a flutter at a rate of 98. QRS duration is 151. QT is 352. QTC is 450. No signs of acute ischemia. Attestation Statement - Attestation Attestation: I have seen this patient with the resident physician, I have personally evaluated this patient. I had reviewed the chart and document dictation by the resident physician and aM in agreement with the information documented by the resident physician. Please see documentation by the resident physician for complete chart including past medical history, family medical history, review of systems, current history and physical and laboratory and imaging studies. I was present for all procedures, provided direct supervision for all procedures, was present for the entirety of all procedures and provided direct guidance during the procedures. Please see documentation by the resident physician for any procedures performed. I have reviewed all interpretations of EKGs, and reviewed all EKGs performed on patient's as well. I have also reviewed reports of imaging as provided by radiology.
[2018-10-14 08:30] LABS: Basophils # 0.1 K/mcL (0.0-0.2); Basophils % 0.6 %; Eosinophils # 0.3 K/mcL (0.0-0.6); Eosinophils % 2.1 %; Hematocrit 34.2 % (37.5-50.1); Hemoglobin 11.3 g/dL (12.9-16.9); Immature Granulocytes % 0.4 % (0-4); Lymphocytes # 1.9 K/mcL (0.6-4.6); Lymphocytes % 15.9 %; Mean Corpuscular Hemoglobin 28.8 pg (28.0-33.3); Mean Platelet Volume 10.9 fL (9.4-12.4); Monocytes # 0.9 K/mcL (0.0-1.3); Monocytes % 7.6 %; Neutrophils # 8.9 K/mcL (1.6-8.9); Platelet Count 214 K/mcL (140-400); Red Blood Count 3.93 M/mcL (4.19-5.50); Red Cell Distribution Width 13.7 % (11.5-14.5); Segmented Neutrophils % 73.4 %; White Blood Count 12.1 K/mcL (4.3-11.1)
[2018-10-14 09:17] LABS: BUN/Creatinine Ratio 17 (6-26); Blood Urea Nitrogen 34 mg/dL (8-23); Calcium 8.4 mg/dL (8.6-10.3); Carbon Dioxide 21 mEq/L (23-29); Chloride 97 mEq/L (98-107); Glucose 139 mg/dL (70-105); Magnesium 0.9 mg/dL (1.6-2.6); Osmolality,Calculated 284 (280-300); Potassium 4.4 mEq/L (3.5-5.1); Sodium 132 mEq/L (136-145); Troponin I < 0.03 ng/mL (< 0.04); eGFR For African Americans 41 (> 60); eGFR For Non-African Americans 34 (> 60)
[2018-10-14] MEDS ORDERED: 0.9 % Sodium Chloride 1,000 ML IVC ONE (09:40)
--- NOTE | 2018-10-14 10:13 | Emergency Department Note ---
Disposition Clinical Impression: Atrial flutter with rapid ventricular response, New onset atrial flutter, Acute renal failure, Urinary retention, Hypomagnesemia Disposition: Admitted As Inpatient Condition: Serious Referrals: Atilio Lang MD [Primary Care Provider] - Time of Disposition: 10:14 Arrhythmia/Palpitations HPI - General Chief Complaint: ED Arrhythmia/Palpitations Stated Complaint: KEVIN Time Seen by Provider: 10/14/18 08:02 Source: patient, EMS Mode of arrival: EMS Limitations: no limitations Nursing Notes Reviewed: Yes Vital Signs Reviewed: Yes - Related Data Home Medications Medication Instructions Recorded Confirmed Atorvastatin [Lipitor] 40 mg PO HS 10/04/17 10/14/18 Escitalopram [Lexapro] 10 mg PO DAILY 10/04/17 10/14/18 rOPINIRole [Requip] 0.25 mg PO HS 10/04/17 10/14/18 Amitriptyline [Elavil] 25 mg PO HS 07/18/18 10/14/18 Insulin Human Regular [HumuLIN R] 5 unit SQ TIDAC 07/18/18 10/14/18 Metformin HCl 1,000 mg PO BIDWM 07/18/18 10/14/18 Furosemide [Lasix] 40 mg PO DAILY 09/06/18 10/14/18 Potassium Chloride [Klor-Con 10] 10 meq PO DAILY 09/06/18 10/14/18 Glucagon,Human Recombinant 1 mg IM PRN PRN 09/15/18 10/14/18 [Glucagen] HYDROcodone/Acet 7.5/325 mg [[place] 1 tab PO Q6H PRN 09/15/18 10/14/18 7.5-325 mg] Insulin Glargine,Hum.rec.anlog 18 unit SQ HS 09/15/18 10/14/18 [Basaglar Kwikpen U-100] Omeprazole [PriLOSEC] 20 mg PO DAILY 09/15/18 10/14/18 Ondansetron HCl [Zofran] 4 mg PO TID PRN 10/14/18 10/14/18 Previous Rx's Medication Instructions Recorded Nitroglycerin 0.4 mg SL Q5MIN PRN 30 Days #28 10/06/17 tab.subl Allergies Allergy/AdvReac Type Severity Reaction Status Date / Time shellfish derived Allergy Hives Verified 09/15/18 16:44 Past Medical History - Past Medical History Medical history: Reports: cancer, CHF, CVA, diabetes, hyperlipidemia, hypertension, TIA Psychiatric history: Reports: depression - Social History Smoking Status: Former smoker Smokeless Tobacco Status: No Alcohol use: Reports: none Drug use: Reports: none Physical Exam - General Limitations: no limitations General appearance: alert, in no apparent distress Course Vital Signs Temperature 98.4 F 10/14/18 08:09 Pulse Rate 136 10/14/18 08:09 Respiratory Rate 16 10/14/18 08:09 Blood Pressure 104/77 10/14/18 08:09 O2 Sat by Pulse Oximetry 92 10/14/18 08:09 Temperature 98.4 F 10/14/18 08:09 Pulse Rate 66 10/14/18 09:47 Respiratory Rate 22 10/14/18 09:47 Blood Pressure 114/61 10/14/18 09:47 O2 Sat by Pulse Oximetry 97 10/14/18 09:47 Oxygen Delivery Oxygen Delivery Nasal Cannula Arrhythmia/Palpitations - Lab Data Result diagrams: 10/14/18 08:19 10/14/18 08:19 Lab Results 10/14/18 10/14/18 10/14/18 Range/Units 08:19 08:19 08:19 WBC 12.1 H (4.3-11.1) K/mcL RBC 3.93 L (4.19-5.50) M/mcL Hgb 11.3 L (12.9-16.9) g/dL Hct 34.2 L (37.5-50.1) % MCV 87.0 (83.0-100.0) fL MCH 28.8 (28.0-33.3) pg MCHC 33.0 (31.6-35.5) g/dL RDW 13.7 (11.5-14.5) % Plt Count 214 (140-400) K/mcL MPV 10.9 (9.4-12.4) fL Immature Gran % 0.4 (0-4) % Seg Neutrophils % 73.4 % Lymphocytes % 15.9 % Monocytes % 7.6 % Eosinophils % 2.1 % Basophils % 0.6 % Neutrophils # 8.9 (1.6-8.9) K/mcL Lymphocytes # 1.9 (0.6-4.6) K/mcL Monocytes # 0.9 (0.0-1.3) K/mcL Eosinophils # 0.3 (0.0-0.6) K/mcL Basophils # 0.1 (0.0-0.2) K/mcL APTT 34.8 (26.0-36.0) Seconds Sodium 132 L (136-145) mEq/L Potassium 4.4 (3.5-5.1) mEq/L Chloride 97 L (98-107) mEq/L Carbon Dioxide 21 L (23-29) mEq/L BUN 34 H (8-23) mg/dL Creatinine 1.96 H (0.70-1.30) mg/dL Est GFR ( Amer) 41 L (> 60) Est GFR (Non-Af Amer) 34 L (> 60) BUN/Creatinine Ratio 17 (6-26) Glucose 139 H (70-105) mg/dL Calculated Osmolality 284 (280-300) Calcium 8.4 L (8.6-10.3) mg/dL Magnesium 0.9 L (1.6-2.6) mg/dL Troponin I < 0.03 (< 0.04) ng/mL Attestation Statement - Attestation Attestation: I have seen this patient with the resident physician, I have personally evaluated this patient. I had reviewed the chart and document dictation by the resident physician and aM in agreement with the information documented by the resident physician. Please see documentation by the resident physician for complete chart including past medical history, family medical history, review of systems, current history and physical and laboratory and imaging studies. I was present for all procedures, provided direct supervision for all procedures, was present for the entirety of all procedures and provided direct guidance during the procedures. Please see documentation by the resident physician for any procedures performed. I have reviewed all interpretations of EKGs, and reviewed all EKGs performed on patient's as well. I have also reviewed reports of imaging as provided by radiology. Patient [facility] for high heart rate. The patient denies any symptoms. He states there is checking his vital signs as morning and it olmesartan rate was elevated. He denies headache neck pain chest pain shortness breath dizziness weakness fevers chills cough sputum production abdominal pain nausea vomiting diarrhea. He states he has chronic urinary frequency and leakage no changes in this. Denies any acute leg swelling unilateral or bilateral. He states that he does not know specifically why he was sent here because he feels fine, he states that he is hungry and thirsty. On physical examination he is alert oriented 3 nontoxic in appearance. Cranial nerves are intact. Lungs are clear. Heart is tachycardic, regular rhythm, heart rate of 155 on the monitor, appears regular. Abdomen is soft and nontender. Trace lower extremity edema no unilateral swelling palpable cord Tenderness homicidal or clinical evidence of DVT. Skin is warm dry without rash or petechiae or jaundice. EKG was obtained which demonstrated atrial flutter rate of 155, to 1 block, no evidence of acute QRS changes, stable appearance of a incomplete right bundle branch block pattern. No acute ST segment changes when compared to previous. No evidence of ST elevation or ST depression. Patient as above found to be in new onset atrial flutter, was started on diltiazem drip and bolus, also reviewed his echocardiogram from last month which demonstrated an ejection fraction of 60% he was also given IV fluids. He had a very brief decrease in his blood pressure to 89 systolic after the bolus of Cardizem, however he did not develop any symptoms during this and his blood pressure rebounded 217/60. Heart rate decreased into the 90s after his bolus, then began to trend, but his drip was continued, heart rate in the low 100s, repeat EKG demonstrates atrial flutter, with variable block, no evidence of acute abnormality of the ST segments. Basic laboratory studies and cardiac enzymes were all within acceptable limits apart from a slightly increased creatinine of 1.96, and a magnesium of 0.9. He was given IV fluids, we supplemented his magnesium which may also help with his atrial flutter. Secondary to acute kidney injury, and the patient stating that he has chronic urinary frequency, bladder scan was obtained which demonstrated a liter of urine, Chang catheter was placed. Patient will be admitted to the hospital for further evaluation and management. Total critical care time as provided by myself excluding any procedures performed in evaluation and management of new onset atrial flutter with a rapid ventricular response, acute renal failure, and hypomagnesemia was 55 minutes.
[2018-10-14 10:37] LABS: Bilirubin,Urine Negative (Negative); Blood,Urine Moderate (Negative); Clarity,Urine Turbid (Clear); Color,Urine Yellow (Yellow); Glucose,Urine (UA) Normal (Normal); Ketones,Urine Negative (Negative); Leukocyte Esterase,Urine Large (Negative); Nitrite,Urine Negative (Negative); Protein,Urine 100 mg/dL (Neg-Trace); Specific Gravity,Urine 1.012 (1.010-1.025); Urobilinogen,Urine Normal (Normal)
[2018-10-14 10:38] LABS: Bacteria,Urine Many per hpf (None-Few); Squamous Epithelial Cell,Urine Many per lpf (None-Few); WBC,Urine TNTC per hpf (0-3)
[2018-10-14] MEDS ORDERED: Naloxone 0.4 MG/ML INJ IVP PRN (10:52)
[2018-10-14] MEDS ORDERED: Ondansetron 4 MG/2 ML VIAL IVP PRN (10:52)
[2018-10-14 10:53] LABS: RBC,Urine Present per hpf (0-3)
[2018-10-14] MEDS ORDERED: Piperacillin/Tazobactam 3.375 GM in 0.9 % Sodium Chloride Mini Bag 100 ML IVPB SCH (10:54)
[2018-10-14] MEDS ORDERED: Ringers Solution, Lactated 1,000 ML IVC SCH (11:00)
--- NOTE | 2018-10-14 11:55 | Internal Med History&Physical ---
Date of Encounter: 10/14/18 Time of Encounter: 11:30 Internal Medicine - H&P: HPI Chief complaint: tachycardia Admitted From: Long-term Nursing Facility History of present illness: Mr. Khanna is a 72 year old male with history of CVA with residual R sided weakness, DM, HFpEF, recent admission for CAUTI and fungemia, who presented to the ED after being found to have elevated HR at the nursing facility. Patient however denies any chest pain, palpitation, orthopnea, PND, or leg swelling. No nausea/vomiting, diaphoresis, or lightheadedness. Patient has had Monson catheter removed prior to discharge in September and he felt that he did not have any trouble urinating nor dysuria. No cough, sputum production, abdominal pain, flank pain, or change in bowel habits. In the ED, he was noted to be tachycardic at 136 but with stable BP and good O2 saturation. Labwork showed leukocytosis of 12.1, creatinine 1.96 (baseline 0.9-1), normal lactic acid and troponin, and urinalysis positive for large amount of leukocyte esterase. He was also noted to have significant urinary retention for which he had Monson inserted, draining 1L of cloudy urine. EKG showed a flutter with RVR. CXR was negative for acute cardiopulmonary process. Pt was given IV fluids, started on Cardizem drip, and admitted for further management. Past Med Surg Social Fam HX - Past Medical History Medical history: cancer, CHF, CVA, diabetes, hyperlipidemia, hypertension, TIA Additional medical history: breast CA Psychiatric history: depression - Past Surgical History Additional surgical history: right breast removed in 2001, breast cancer. right foot surgery and left hand surgery - Social History Smoking Status: Former smoker Smokeless Tobacco Status: No Alcohol use: none Drug use: none - Family History Father Living Status: Hx Family Cancer: Yes Hx Family Endocrine Disorder: Yes Mother Adopted: No Family Member Ethnicity: Non- Living Status: Hx Family Cardiac Disorders: No Hx Family Respiratory Disorders: No Hx Family Cancer: Yes Hx Family GI Disorders: No Hx Family Endocrine Disorder: No Hx Family Neuromuscular Disorders: No Hx Family Neurologic Disorders: No Hx Family HEENT Disorders: No Hx Family Autoimmune Disorders: No Internal Medicine - H&P: Meds Atorvastatin [Lipitor] 40 mg PO HS 10/04/17 [History] Escitalopram [Lexapro] 10 mg PO DAILY 10/04/17 [History] rOPINIRole [Requip] 0.25 mg PO HS 10/04/17 [History] Nitroglycerin 0.4 mg SL Q5MIN PRN 30 Days #28 tab.subl 10/06/17 [Rx] Amitriptyline [Elavil] 25 mg PO HS 07/18/18 [History] Insulin Human Regular [HumuLIN R] 0 unit SQ TIDAC 07/18/18 [History] Metformin HCl 1,000 mg PO BIDWM 07/18/18 [History] Furosemide [Lasix] 40 mg PO DAILY 09/06/18 [History] Potassium Chloride [Klor-Con 10] 10 meq PO BID 09/06/18 [History] Glucagon,Human Recombinant [Glucagen] 1 mg IM PRN PRN 09/15/18 [History] HYDROcodone/Acet 7.5/325 mg [[place] 7.5-325 mg] 1 tab PO Q6H PRN 09/15/18 [History] Insulin Glargine,Hum.rec.anlog [Basaglar Kwikpen U-100] 18 unit SQ HS 09/15/18 [History] Omeprazole [PriLOSEC] 20 mg PO DAILY 09/15/18 [History] Ondansetron HCl [Zofran] 4 mg PO TID PRN 10/14/18 [History] Allergy/AdvReac Type Severity Reaction Status Date / Time shellfish derived Allergy Hives Verified 09/15/18 16:44 All Systems PM: A 10-system review of systems was performed and is negative for pertinent fi ndings except as documented above in the HPI. - Constitutional Vitals: Temp Pulse Resp BP Pulse Ox 98.4 F 109 20 105/64 99 10/14/18 08:09 10/14/18 11:41 10/14/18 11:41 10/14/18 11:41 10/14/18 11:41 Exam: General: Alert and oriented, not in acute distress. HEENT:EOMI, pupils equal, round and reactive. Cardiovascular:Normal S1 & S2, No JVD. Pulse irregular and tachycardic Lungs: clear to auscultation, no wheezes/rales Abdomen:Soft, non-tender, no rigidity. : No CVA tenderness, monson catheter in situ draining cloudy urine Extremities:No deformity or swelling Neurological: Power 4/5 on the R UE/LE, but otherwise no new neuro deficits Skin:Normal color, no rash, no lesions. Pulses:Carotid and radial pulses normal +2. Rest of the physical exam is non contributory Internal Med - H&P Results - Labs CBC & Chem 7: 10/14/18 08:19 10/14/18 08:19 Labs: Short CBC 10/14/18 Range/Units 08:19 WBC 12.1 H (4.3-11.1) K/mcL Hgb 11.3 L (12.9-16.9) g/dL Hct 34.2 L (37.5-50.1) % Plt Count 214 (140-400) K/mcL Neutrophils # 8.9 (1.6-8.9) K/mcL BMP 10/14/18 08:19 Sodium 132 L Potassium 4.4 Chloride 97 L Carbon Dioxide 21 L BUN 34 H Creatinine 1.96 H Glucose 139 H Calcium 8.4 L Cardiac Enzymes 10/14/18 Range/Units 08:19 Troponin I < 0.03 (< 0.04) ng/mL Urine 10/14/18 Range/Units 10:21 Urine Color Yellow (Yellow) Urine Clarity Turbid A (Clear) Urine pH 6.0 (5.0-8.0) pH Units Ur Specific [place] 1.012 (1.010-1.025) Urine Protein 100 H (Neg-Trace) mg/dL Urine Glucose (UA) Normal (Normal) mg/dL - Impressions ITS Impressions Chest X-Ray 10/14/18 08:08 IMPRESSION: Mild cardiomegaly. No acute cardiopulmonary process. D/ / 10/14/2018 08:33:00 Kiko Jacome MD / [facility] Interpreting Provider: Kiko Jacome MD - Assessment and Plan (1) Sepsis Current Visit: Yes Status: Acute Assessment and plan: presented to tachycardia and leukocytosis multiple hospitalizations for CAUTI and bacteremia/fungemia over the last 3 months. Most recently discharged on 09/20 on 14 day course of PO Fluconazole pt has MELONY and urinary retention with UA positive for LE discussed with ID over the phone regarding previous culture results; will start the pt on zosyn and hold off on antifungal for now unless he clinically deteriorates or blood culture turns +ve lactic acid normal follow up on urine and blood cultures Qualifiers: Sepsis type: sepsis due to unspecified organism Qualified Code(s): A41.9 - Sepsis, unspecified organism (2) Atrial flutter with rapid ventricular response Current Visit: Yes Status: Acute Assessment and plan: Was initially thought to be new onset atrial flutter but upon review of the previous EKGs, he has had similar episode in May 2017 likely triggered by sepsis as above started on cardizem gtt, continue Mg repleted discussed with the pt regarding AC given his CHADVASC score of 5 and prior hx of CVA. Will start hep gtt and zheng check for NOAC prior to d/c trend troponin to rule out ACS echo 09/17/2018 preserved EF without significant valvular pathology. Will not repeat another one unless troponin increases (3) Acute renal failure Current Visit: Yes Status: Acute Assessment and plan: likely a combination of post-obstructive +/- UTI monson inserted, monitor output IVF renally dosed abx Qualifiers: Acute renal failure type: unspecified Qualified Code(s): N17.9 - Acute kidney failure, unspecified (4) Urinary retention Current Visit: Yes Status: Acute Assessment and plan: associated with UTI as above, monson inserted start flomax given his significant history of CAUTI with bacteremia/fungemia, it would not be ideal to discharge the pt on monson. May need to consider Urology consultation prior to d/c to discuss about the strategy as outpatient (5) UTI (urinary tract infection) Current Visit: Yes Status: Acute Assessment and plan: abx as above Qualifiers: Urinary tract infection type: acute cystitis Hematuria presence: without hematuria Qualified Code(s): N30.00 - Acute cystitis without hematuria (6) Diastolic CHF, chronic Current Visit: No Status: Chronic Assessment and plan: not in decompensation, on IVF due to MELONY as above (7) Type 2 diabetes mellitus Current Visit: No Status: Chronic Assessment and plan: metformin on hold basal bolus insulin Qualifiers: Diabetes mellitus detention insulin use: with assistant terminal manager use Diabetes mellitus complication status: without complication Qualified Code(s): E11.9 - Type 2 diabetes mellitus without complications; Z79.4 - residential (current) use of insulin (8) DVT prophylaxis Current Visit: Yes Status: Acute Assessment and plan: on hep gtt - Time Spent With Patient Total time spent is greater than 50% in coordination of care (as documented) at patient's floor/unit and/or counseling patient: Greater than 35 minutes
[2018-10-14] MEDS ORDERED: *HR* Heparin 5,000 UNIT/ML VIAL IVP PRN (12:01)
[2018-10-14] MEDS ORDERED: *HR* Heparin 5,000 UNIT/ML VIAL IVP ONE (12:01)
[2018-10-14] MEDS ORDERED: *HR* HYDROcodone/Acet 7.5/325 mg TABLET PO PRN (12:02)
[2018-10-14] MEDS ORDERED: Nitroglycerin 0.4 MG TAB.SUBL SL PRN (12:02)
[2018-10-14] MEDS ORDERED: *HR* Dextrose 50 % in Water (Syg) 50 ML SYRINGE IVP PRN (12:04)
[2018-10-14] MEDS ORDERED: Dextrose Gel 15 GM/37.5 ML TUBE PO PRN ×2 (12:04)
[2018-10-14] MEDS ORDERED: D5% in Water 1,000 ML IVC PRN (12:04)
[2018-10-14 13:24] LABS: Heparin anti-factor XA UFH 0.02 IU/mL (0.30-0.70)
[2018-10-14 13:25] LABS: INR 1.4; Prothrombin Time 15.4 Seconds (9.4-12.1)
--- NOTE | 2018-10-14 15:29 | Electrocardiograph Report ---
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
[2018-10-14 16:05] LABS: Calcium 8.3 mg/dL (8.6-10.3); Magnesium 1.3 mg/dL (1.6-2.6); Potassium 4.6 mEq/L (3.5-5.1)
[2018-10-14] MEDS ORDERED: *HR* Metoprolol 5 MG/5 ML VIAL IVP ONE (16:07)
[2018-10-14] MEDS: Heparin 25,000 UNIT/250 ML D5W 25,000 UNIT/250 ML IV.SOLN IVC SCH (16:23)
[2018-10-14] MEDS: *HR* Heparin 5,000 UNIT/ML VIAL IVP PRN (16:26)
[2018-10-14] MEDS: 0.9 % Sodium Chloride 1,000 ML IVC SCH (16:54)
[2018-10-14] MEDS: Insulin LISPRO 300 UNITS/3 ML VIAL SQ SCH ×2 (16:55→21:46)
[2018-10-14 16:58] LABS: Hematocrit 34.1 % (37.5-50.1)
[2018-10-14] MEDS: rOPINIRole 0.25 MG TABLET PO SCH (20:13)
[2018-10-14] MEDS ORDERED: NON-FORMULARY MEDICATION 1 EACH EACH (Insulin Glargine,Hum.Rec.Anlog [Basaglar Kwikpen U-1 SQ SCH (21:00)
[2018-10-14] MEDS: Insulin DETEMIR 100 UNIT/ML X5UNITS SQ SCH (21:46)
[2018-10-14] MEDS: Piperacillin/Tazobactam 3.375 GM in 0.9 % Sodium Chloride Mini Bag 100 ML IVPB SCH (23:47)
[2018-10-15 02:37] LABS: Basophils # 0.1 K/mcL (0.0-0.2); Basophils % 0.6 %; Eosinophils # 0.3 K/mcL (0.0-0.6); Eosinophils % 2.8 %; Hematocrit 33.1 % (37.5-50.1); Hemoglobin 10.9 g/dL (12.9-16.9); Immature Granulocytes % 0.4 % (0-4); Lymphocytes # 1.9 K/mcL (0.6-4.6); Lymphocytes % 20.5 %; Mean Corpuscular HGB Conc 32.9 g/dL (31.6-35.5); Mean Corpuscular Hemoglobin 28.7 pg (28.0-33.3); Mean Corpuscular Volume 87.1 fL (83.0-100.0); Monocytes # 0.7 K/mcL (0.0-1.3); Monocytes % 7.1 %; Neutrophils # 6.4 K/mcL (1.6-8.9); Platelet Count 204 K/mcL (140-400); Red Cell Distribution Width 13.8 % (11.5-14.5); Segmented Neutrophils % 68.6 %; White Blood Count 9.3 K/mcL (4.3-11.1)
[2018-10-15 02:44] LABS: Magnesium 1.3 mg/dL (1.6-2.6); Potassium 4.1 mEq/L (3.5-5.1)
[2018-10-15] MEDS: 0.9 % Sodium Chloride 1,000 ML IVC SCH ×2 (03:21→14:44)
[2018-10-15] MEDS: Piperacillin/Tazobactam 3.375 GM in 0.9 % Sodium Chloride Mini Bag 100 ML IVPB SCH ×2 (07:50→14:52)
[2018-10-15] MEDS: Insulin LISPRO 300 UNITS/3 ML VIAL SQ SCH ×4 (08:00→20:14)
--- NOTE | 2018-10-15 09:38 | Internal Med Progress Note ---
<Tien Vega - Last Filed: 10/15/18 15:10> Hospitalist Progress Note - Encounter Date of Encounter: 10/15/18 - Exam Vitals: Temp Pulse Resp BP Pulse Ox 98.0 F 107 16 122/74 96 10/15/18 14:47 10/15/18 14:47 10/15/18 14:47 10/15/18 14:47 10/15/18 14:47 - Assessment and Plan (1) UTI (urinary tract infection) Current Visit: Yes Status: Acute (2) Type 2 diabetes mellitus Current Visit: No Status: Chronic (3) DVT prophylaxis Current Visit: Yes Status: Acute (4) Diastolic CHF, chronic Current Visit: No Status: Chronic (5) Sepsis Current Visit: Yes Status: Suspected (6) Urinary retention Current Visit: Yes Status: Acute (7) Atrial flutter with rapid ventricular response Current Visit: Yes Status: Acute (8) Acute renal failure Current Visit: Yes Status: Acute - Time Spent with Patient Total time spent is greater than 50% in coordination of care (as documented) at patient's floor/unit and/or counseling patient: Internal Medicine: Result - Labs CBC & Chem 7: 10/15/18 02:12 10/15/18 02:12 Labs: Short CBC 10/14/18 10/15/18 Range/Units 16:13 02:12 WBC 9.3 (4.3-11.1) K/mcL Hgb 11.0 L 10.9 L (12.9-16.9) g/dL Hct 34.1 L 33.1 L (37.5-50.1) % Plt Count 204 (140-400) K/mcL Neutrophils # 6.4 (1.6-8.9) K/mcL BMP 10/14/18 10/15/18 15:10 02:12 Sodium 132 L 133 L Potassium 4.6 4.1 Chloride 98 101 Carbon Dioxide 22 L 24 BUN 31 H 25 H Creatinine 1.74 H 1.42 H Glucose 182 H 181 H Calcium 8.3 L 8.0 L Cardiac Enzymes 10/14/18 Range/Units 15:10 Troponin I < 0.03 (< 0.04) ng/mL - ABG Interpretation ABG results: PT/INR, D-dimer PT 15.4 Seconds (9.4-12.1) H 10/14/18 12:52 Consult Discharge Plan - Plan Referrals: Atilio Lang MD [Primary Care Provider] - - Attending Attestation I examined this patient and my medical decision-making was reviewed with the Resident Physician on 10/15/18. I agree with the documented findings, disposition and treatment plan as described except to the extent set forth below. Mr Khanna is currently admitted for sepsis related to CAUTI (present on admission). He remains moderate to high risk due to potential for worsening clinical status. Mr Khanna is eating lung. He says he feels well. No fever or chills. Heart rate up and down. On heparin drip. No CP or SOB at this time. No cough. Exam Alert. Comfortable. Heart irreg. Not tachy. Lungs clear. Abd soft. Moves all extremities. Plan: Continue IV abx to cover UTI. Ultimately transition to DOAC. Continue monitor renal function. Blood sugar uncontrolled. <Luis Daniel Heredia - Last Filed: 10/15/18 19:52> Hospitalist Progress Note - Encounter Date of Encounter: 10/15/18 Time of Encounter: 09:00 - Subjective Interval History: Patient seen and examined at bedside today. Patient reports no complaints other than a pilonidal cyst on his back that is not new and unchanged from prior to admission. Of note, nurse did have concern due to patient's decreasing blood pressure, systolic 90s. The patient was given a 2 L fluid bolus and the Cardizem drip was held. Patient's blood pressure has since been stable in the 120s. Heart rate controlled at this time. - Exam Vitals: Temp Pulse Resp BP Pulse Ox 98.2 F 75 18 109/69 96 10/15/18 07:55 10/15/18 07:55 10/15/18 07:55 10/15/18 07:55 10/15/18 07:55 Exam: General: Alert and oriented, not in acute distress. HEENT:EOMI. atraumatic normocephalic. Cardiovascular: Tachycardic, irregularly rhythm. No murmurs gallops rubs Lungs: CTA B no wheezes rales or rhonchi Abdomen:Soft, non-tender, no guarding, nondistended : No CVA tenderness, Chang in place, no hematuria Extremities: Moves all extremities, full range of motio Neurological: No focal neuro deficits, sensation strength intact Skin:Normal color, no rash, no lesions. - Assessment and Plan (1) UTI (urinary tract infection) Current Visit: Yes Status: Acute Assessment and Plan: Patient with known history of CAUTI, fungemia Current UTI d/t indwelling Chang catheter secondary to chronic urinary retention Urinalysis shows nitrites and leukocyte esterase Urine cultures pending, empiric Zosyn started No indication for antifungal at this time Plan: -Continue empiric antibiotics -Follow up blood cultures urine cultures (2) Atrial flutter with rapid ventricular response Current Visit: Yes Status: Acute Assessment and Plan: Patient presented in atrial flutter with RVR, asymptomatic Patient has a history of similar episode back in May Most likely secondary to infection, sepsis Cardizem GTT started overnight Heart rate brought down under 100, however patient developed hypotension Cardizem was held and fluid boluses were given Patient has a regular rate since that time Serial troponins went down, no concern for ACS at this time Plan: -Heparin for anticoagulation, transition to DOAC in future -Continue telemetry -May consider amiodarone in future due to concern for hypotension (3) Sepsis Current Visit: Yes Status: Suspected Assessment and Plan: He presented with tachycardia, leukocytosis, suspected urinary tract infection Patient's had multiple hospitalizations for CVA UTI in the past Secondary to indwelling Chang catheter for urinary retention Recently completed a 14 day course of by mouth fluconazole Blood and urine cultures pending at this time Lactic acid normal Plan: -Continue fluid resuscitation -Continue current Zosyn until blood cultures return -Follow up on cultures -May consider adding antifungal if patient's clinical condition deteriorates (4) Acute kidney injury Current Visit: Yes Status: Acute Assessment and Plan: Patient presented with serum creatinine 1.96, baseline under 1 Likely secondary to UTI and or chronic urinary retention Chang catheter has been placed Plan: -Renally dose medications -Continue IV fluid resuscitation -Avoid nephrotoxins if at all possible Code(s): N17.9 - Acute kidney failure, unspecified (5) Urinary retention Current Visit: Yes Status: Acute Assessment and Plan: Patient had indwelling Chang catheter removed several weeks ago Urinary retention likely secondary to the urinary tract infection Patient takes Flomax home, will resume (6) CHF (congestive heart failure) Current Visit: No Status: Chronic Assessment and Plan: Patient with known history of diastolic congestive heart failure Patient not in acute exacerbation at this time No evidence of volume overload Will home meds (7) Diabetes mellitus Current Visit: No Status: Chronic Assessment and Plan: Known history of type 2 diabetes Metformin on hold due to MELONY Patient receiving basal insulin plus sliding scale correction DVT Prophylaxis: Heparin GTT - Time Spent with Patient Total time spent is greater than 50% in coordination of care (as documented) at patient's floor/unit and/or counseling patient: Internal Medicine: Result - Labs CBC & Chem 7: 10/15/18 02:12 10/15/18 02:12 Labs: Short CBC 10/14/18 10/15/18 Range/Units 16:13 02:12 WBC 9.3 (4.3-11.1) K/mcL Hgb 11.0 L 10.9 L (12.9-16.9) g/dL Hct 34.1 L 33.1 L (37.5-50.1) % Plt Count 204 (140-400) K/mcL Neutrophils # 6.4 (1.6-8.9) K/mcL BMP 10/14/18 10/15/18 15:10 02:12 Sodium 132 L 133 L Potassium 4.6 4.1 Chloride 98 101 Carbon Dioxide 22 L 24 BUN 31 H 25 H Creatinine 1.74 H 1.42 H Glucose 182 H 181 H Calcium 8.3 L 8.0 L Cardiac Enzymes 10/14/18 Range/Units 15:10 Troponin I < 0.03 (< 0.04) ng/mL Urine 10/14/18 Range/Units 10:21 Urine Color Yellow (Yellow) Urine Clarity Turbid A (Clear) Urine pH 6.0 (5.0-8.0) pH Units Ur Specific Blue 1.012 (1.010-1.025) Urine Protein 100 H (Neg-Trace) mg/dL Urine Glucose (UA) Normal (Normal) mg/dL - ABG Interpretation ABG results: PT/INR, D-dimer PT 15.4 Seconds (9.4-12.1) H 10/14/18 12:52 <Delvin Vegain Brigitte - Last Filed: 10/15/18 15:10> (1) UTI (urinary tract infection) Qualifiers: Urinary tract infection type: acute cystitis Hematuria presence: without hematuria Qualified Code(s): N30.00 - Acute cystitis without hematuria (2) Type 2 diabetes mellitus Qualifiers: Diabetes mellitus detention insulin use: with detention use Diabetes mellitus complication status: without complication Qualified Code(s): E11.9 - Type 2 gabriel betes mellitus without complications; 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 (5) Sepsis Qualifiers: Sepsis type: Streptococcus, other Qualified Code(s): A40.8 - Other streptococcal sepsis (8) Acute renal failure Qualifiers: Acute renal failure type: unspecified Qualified Code(s): N17.9 - Acute kidney failure, unspecified <Luis Daniel Heredia M - Last Filed: 10/15/18 19:52> (1) UTI (urinary tract infection) Qualifiers: Urinary tract infection type: acute cystitis Hematuria presence: without hematuria Qualified Code(s): N30.00 - Acute cystitis without hematuria (3) Sepsis Qualifiers: Sepsis type: Streptococcus, other Qualified Code(s): A40.8 - Other streptococcal sepsis (7) Diabetes mellitus Qualifiers: Diabetes mellitus type: type 2 Diabetes mellitus detention insulin use: unspecified buttermaker continuous churn insulin use status Diabetes mellitus complication status: without complication Qualified Code(s): E11.9 - Type 2 diabetes mellitus without complications
[2018-10-15] MEDS ORDERED: 0.9 % Sodium Chloride 500 ML IVC ONE ×2 (09:52→10:44)
[2018-10-15] MEDS ORDERED: 0.9 % Sodium Chloride 500 ML ONE ×2 (09:56→10:45)
[2018-10-15] MEDS ORDERED: 0.9 % Sodium Chloride 1,000 ML IVC ONE (12:53)
[2018-10-15] MEDS: Heparin 25,000 UNIT/250 ML D5W 25,000 UNIT/250 ML IV.SOLN IVC SCH (14:08)
[2018-10-15] MEDS: Insulin DETEMIR 100 UNIT/ML X5UNITS SQ SCH (20:03)
[2018-10-15] MEDS: rOPINIRole 0.25 MG TABLET PO SCH (20:04)
[2018-10-16] MEDS: Piperacillin/Tazobactam 3.375 GM in 0.9 % Sodium Chloride Mini Bag 100 ML IVPB SCH ×3 (00:27→16:27)
[2018-10-16] MEDS: 0.9 % Sodium Chloride 1,000 ML IVC SCH ×2 (00:29→10:58)
--- NOTE | 2018-10-16 04:27 | Event Note ---
Date of Encounter: 10/15/18 Time of Encounter: 19:36 Alerted by patient's nurse DANNIE Christina that Mr. Khanna had been admitted for UTI and atrial flutter w/RVR. Patient on heparin drip and Cardizem drip, however Cardizem drip was on hold due to patient's low BP earlier in the day. BP was now 121/79 with heart rate of 109. No PRN medications ordered for HR. Nurse instructed to resume Cardizem gtt. and begin at 2.5. Nurse instructed to leave drip at 2.5 and alert me of patient's HR and BP. Patient's HR consistently lowered throughout the night with BP remaining 120s systolically. Asked nurse at 04:26 for update at which time she reported HR 84 and BP still 120s systolic. Current rate at 5. Nurse instructed to leave gtt at 5 in order to prevent dropping pts. BP as before. Will continue to monitor this pt. closely.
[2018-10-16 06:00] LABS: Basophils % 0.5 %; Eosinophils # 0.4 K/mcL (0.0-0.6); Eosinophils % 7.5 %; Hematocrit 29.1 % (37.5-50.1); Hemoglobin 9.7 g/dL (12.9-16.9); Immature Granulocytes % 0.7 % (0-4); Lymphocytes # 1.2 K/mcL (0.6-4.6); Lymphocytes % 20.7 %; Mean Corpuscular HGB Conc 33.3 g/dL (31.6-35.5); Mean Corpuscular Hemoglobin 28.9 pg (28.0-33.3); Mean Corpuscular Volume 86.6 fL (83.0-100.0); Mean Platelet Volume 10.8 fL (9.4-12.4); Monocytes # 0.4 K/mcL (0.0-1.3); Monocytes % 7.3 %; Neutrophils # 3.7 K/mcL (1.6-8.9); Platelet Count 193 K/mcL (140-400); Red Blood Count 3.36 M/mcL (4.19-5.50); Red Cell Distribution Width 13.5 % (11.5-14.5); Segmented Neutrophils % 63.3 %; White Blood Count 5.8 K/mcL (4.3-11.1)
[2018-10-16 06:18] LABS: BUN/Creatinine Ratio 10 (6-26); Blood Urea Nitrogen 10 mg/dL (8-23); Calcium 7.6 mg/dL (8.6-10.3); Carbon Dioxide 23 mEq/L (23-29); Chloride 107 mEq/L (98-107); Glucose 232 mg/dL (70-105); Magnesium 1.5 mg/dL (1.6-2.6); Osmolality,Calculated 288 (280-300); Potassium 3.5 mEq/L (3.5-5.1); Sodium 136 mEq/L (136-145); eGFR For African Americans > 60 (> 60); eGFR For Non-African Americans > 60 (> 60)
--- NOTE | 2018-10-16 07:28 | Internal Med Progress Note ---
<Luis Daniel Heredia M - Last Filed: 10/16/18 12:59> Hospitalist Progress Note - Encounter Date of Encounter: 10/16/18 Time of Encounter: 10:00 - Subjective Interval History: Patient seen and examined bedside this morning. Patient was attempting to eat his breakfast however report some increased nausea overnight and this morning. Patient states he does not feel feverish, has no chills, denies shortness of breath, wheezing, cough, abdominal pain. Patient has not vomited though has felt like he could since beginning to eat his breakfast. States Zofran helps, will add Phenergan 12.5 and reassess. Patient has had elevated heart rate overnight, Cardizem drip started at 5 mls per hour. Vital stable on examination this morning. We will stop the drip and switch to 30 mg Cardizem oral every 6 hours. - Exam Vitals: Temp Pulse Resp BP Pulse Ox 98.1 F 109 16 123/70 100 10/15/18 21:30 10/16/18 02:39 10/15/18 19:25 10/16/18 02:39 10/15/18 23:39 Exam: General: Alert and oriented, not in acute distress. HEENT:EOMI. atraumatic normocephalic. Cardiovascular: Tachycardic, irregularly rhythm. No murmurs gallops rubs Lungs: CTA B no wheezes rales or rhonchi Abdomen:Soft, non-tender, no guarding, nondistended : No CVA tenderness, Chang in place, no hematuria Extremities: Moves all extremities, full range of motio Neurological: No focal neuro deficits, sensation strength intact Skin:Normal color, no rash, no lesions. - Assessment and Plan (1) UTI (urinary tract infection) Current Visit: Yes Status: Acute Assessment and Plan: Patient with known history of CAUTI, fungemia Current UTI d/t indwelling Chang catheter secondary to chronic urinary retention Urinalysis shows nitrites and leukocyte esterase Zosyn was started for empiric broad-spectrum coverage pending urine cultures Per emergency department consultation with infectious disease, no indication for antifungal at this time Urine cultures came back positive for Escherichia coli Plan: -We will continue Zosyn at this time pending blood culture results -Patient's clinical condition does not improve, will consider adding fluconazole (2) Atrial flutter with rapid ventricular response Current Visit: Yes Status: Acute Assessment and Plan: Patient presented in atrial flutter with RVR, asymptomatic at that time Most likely secondary to infection, sepsis Patient has a history of similar episode back in May Serial troponins were elevated in ED, repeat was normal, no concern for ACS Cardizem gtt started overnight on October 14 and then again on October 15 d/t persistent tachycardia Rate controlled so far today, normotensive Plan: -Heparin for anticoagulation, transition to DOAC in future -Hold Cardizem drip, switch to 30 mg every 6 hours oral -We will reassess and continue to monitor (3) Sepsis Current Visit: Yes Status: Suspected Assessment and Plan: He presented with tachycardia, leukocytosis, suspected urinary tract infection Patient's had multiple hospitalizations for CAUTI in the past Secondary to indwelling Chang catheter for urinary retention Recently completed a 14 day course of by mouth fluconazole Urine cultures revealed Escherichia coli Blood cultures still pending at this time Lactic acid normal Plan: -Continue to monitor vitals and fluid resuscitate as indicated -Continue current Zosyn and follow up on blood cultures -May consider adding antifungal if patient's clinical condition deteriorates (4) Acute kidney injury Current Visit: Yes Status: Acute Assessment and Plan: Patient presented with serum creatinine 1.96, baseline under 1 Likely secondary to UTI and or chronic urinary retention Chang catheter has been placed Repeat serum Cr this morning was 1.0 Resolved Plan: -Renally dose medications -Continue IV fluid resuscitation -Avoid nephrotoxins if at all possible Code(s): N17.9 - Acute kidney failure, unspecified (5) Urinary retention Current Visit: Yes Status: Acute Assessment and Plan: Patient had indwelling Chang catheter removed several weeks ago Urinary retention likely secondary to the urinary tract infection Patient takes Flomax home, will resume (6) CHF (congestive heart failure) Current Visit: No Status: Chronic Assessment and Plan: Patient with known history of diastolic congestive heart failure Patient not in acute exacerbation at this time No evidence of volume overload Will home meds (7) Diabetes mellitus Current Visit: No Status: Chronic Assessment and Plan: Known history of type 2 diabetes Metformin on hold due to MELONY Patient receiving basal insulin plus sliding scale correction DVT Prophylaxis: Heparin GTT - Time Spent with Patient Total time spent is greater than 50% in coordination of care (as documented) at patient's floor/unit and/or counseling patient: Internal Medicine: Result - Labs CBC & Chem 7: 10/16/18 05:37 10/16/18 05:37 Labs: Short CBC 10/16/18 Range/Units 05:37 WBC 5.8 (4.3-11.1) K/mcL Hgb 9.7 L (12.9-16.9) g/dL Hct 29.1 L (37.5-50.1) % Plt Count 193 (140-400) K/mcL Neutrophils # 3.7 (1.6-8.9) K/mcL BMP 10/16/18 05:37 Sodium 136 Potassium 3.5 Chloride 107 Carbon Dioxide 23 BUN 10 Creatinine 1.00 Glucose 232 H Calcium 7.6 L - ABG Interpretation ABG results: PT/INR, D-dimer PT 15.4 Seconds (9.4-12.1) H 10/14/18 12:52 Consult Discharge Plan - Plan Referrals: Atilio Lang MD [Primary Care Provider] - <Tien Vega - Last Filed: 10/16/18 18:07> Hospitalist Progress Note - Encounter Date of Encounter: 10/16/18 - Exam Vitals: Temp Pulse Resp BP Pulse Ox 98.1 F 89 16 172/80 97 10/16/18 15:27 10/16/18 15:27 10/16/18 15:27 10/16/18 15:27 10/16/18 15:27 - Assessment and Plan (1) UTI (urinary tract infection) Current Visit: Yes Status: Acute (2) Type 2 diabetes mellitus Current Visit: No Status: Chronic (3) DVT prophylaxis Current Visit: Yes Status: Acute (4) Diastolic CHF, chronic Current Visit: No Status: Chronic (5) Sepsis Current Visit: Yes Status: Suspected (6) Urinary retention Current Visit: Yes Status: Acute (7) Atrial flutter with rapid ventricular response Current Visit: Yes Status: Acute (8) Acute renal failure Current Visit: Yes Status: Acute - Time Spent with Patient Total time spent is greater than 50% in coordination of care (as documented) at patient's floor/unit and/or counseling patient: Internal Medicine: Result - Labs CBC & Chem 7: 10/16/18 05:37 10/16/18 05:37 Labs: Short CBC 10/16/18 Range/Units 05:37 WBC 5.8 (4.3-11.1) K/mcL Hgb 9.7 L (12.9-16.9) g/dL Hct 29.1 L (37.5-50.1) % Plt Count 193 (140-400) K/mcL Neutrophils # 3.7 (1.6-8.9) K/mcL BMP 10/16/18 05:37 Sodium 136 Potassium 3.5 Chloride 107 Carbon Dioxide 23 BUN 10 Creatinine 1.00 Glucose 232 H Calcium 7.6 L - ABG Interpretation ABG results: PT/INR, D-dimer PT 15.4 Seconds (9.4-12.1) H 10/14/18 12:52 - Attending Attestation I examined this patient and my medical decision-making was reviewed with the Resident Physician on 10/16/18. I agree with the documented findings, disposition and treatment plan as described except to the extent set forth below. Mr Khanna is currently admitted for a fib and UTI. He remains moderate to high risk due to potential for worsening clinical status. Mr Khanna is resting at this time. Has converted to NSR today. Had some nausea this AM but improved. Not tachycardic at this time. Continue IV abx. Anticipate d/c in next 24-48 hours. 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 chcf insulin use status Diabetes mellitus complication status: without complication Qualified Code(s): E11.9 - Type 2 diabetes mellitus without complications <Tien Vega - Last Filed: 10/16/18 18:07> (1) UTI (urinary tract infection) Qualifiers: Urinary tract infection type: acute cystitis Hematuria presence: without hematuria Qualified Code(s): N30.00 - Acute cystitis without hematuria (2) Type 2 diabetes mellitus Qualifiers: Diabetes mellitus chcf insulin use: with tank terminal gauger use Diabetes mellitus complication status: without complication Qualified Code(s): E11.9 - Type 2 diabetes mellitus without complications; 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
[2018-10-16] MEDS: Insulin LISPRO 300 UNITS/3 ML VIAL SQ SCH ×4 (08:40→21:08)
[2018-10-16] MEDS ORDERED: *HR* Promethazine 25 MG/ML VIAL IVP PRN (09:33)
[2018-10-16] MEDS ORDERED: 0.9 % Sodium Chloride 1,000 ML IVC ONE (10:29)
[2018-10-16] MEDS ORDERED: 0.9 % Sodium Chloride 1,000 ML ONE (10:40)
[2018-10-16] MEDS: Heparin 25,000 UNIT/250 ML D5W 25,000 UNIT/250 ML IV.SOLN IVC SCH (12:16)
[2018-10-16] MEDS ORDERED: amLODIPine 5 MG TABLET PO PRN (16:23)
[2018-10-16] MEDS: rOPINIRole 0.25 MG TABLET PO SCH (21:37)
[2018-10-16] MEDS: Insulin DETEMIR 100 UNIT/ML X5UNITS SQ SCH (21:38)
[2018-10-17] MEDS: Piperacillin/Tazobactam 3.375 GM in 0.9 % Sodium Chloride Mini Bag 100 ML IVPB SCH ×3 (00:04→15:33)
[2018-10-17] MEDS: 0.9 % Sodium Chloride 1,000 ML IVC SCH ×2 (05:44→05:45)
[2018-10-17 06:00] LABS: Hematocrit 27.2 % (37.5-50.1); Hemoglobin 9.1 g/dL (12.9-16.9); Mean Corpuscular HGB Conc 33.5 g/dL (31.6-35.5); Mean Corpuscular Hemoglobin 29.4 pg (28.0-33.3); Mean Platelet Volume 10.3 fL (9.4-12.4); Platelet Count 191 K/mcL (140-400); Red Blood Count 3.09 M/mcL (4.19-5.50); Red Cell Distribution Width 13.8 % (11.5-14.5); White Blood Count 5.4 K/mcL (4.3-11.1)
[2018-10-17 06:21] LABS: BUN/Creatinine Ratio 10 (6-26); Blood Urea Nitrogen 9 mg/dL (8-23); Calcium 7.7 mg/dL (8.6-10.3); Carbon Dioxide 24 mEq/L (23-29); Chloride 107 mEq/L (98-107); Glucose 251 mg/dL (70-105); Magnesium 1.4 mg/dL (1.6-2.6); Osmolality,Calculated 295 (280-300); Potassium 3.6 mEq/L (3.5-5.1); Sodium 139 mEq/L (136-145); eGFR For African Americans > 60 (> 60); eGFR For Non-African Americans > 60 (> 60)
[2018-10-17] MEDS: Insulin LISPRO 300 UNITS/3 ML VIAL SQ SCH ×4 (08:15→21:25)
[2018-10-17] MEDS: Heparin 25,000 UNIT/250 ML D5W 25,000 UNIT/250 ML IV.SOLN IVC SCH (12:54)
--- NOTE | 2018-10-17 16:00 | Internal Med Progress Note ---
Hospitalist Progress Note - Encounter Date of Encounter: 10/17/18 Time of Encounter: 09:00 - Subjective Interval History: Patient seen and examined at bedside this morning. Reports persistent nausea, as needed Phenergan and Zofran helping now. Denies any new or worsening symptoms, no fevers/chills, shortness of breath, chest pain, abdominal pain, dysuria. Patient has had elevated blood pressure, fluids held. We will reassess in the morning. Culture and sensitivity came back positive for Escherichia coli, sensitive to cephalosporins. Switch to oral Cefdinir, will discharge tomorrow - Exam Vitals: Temp Pulse Resp BP Pulse Ox 98.1 F 83 16 176/77 95 10/17/18 15:05 10/17/18 15:05 10/17/18 15:05 10/17/18 15:05 10/17/18 15:05 Exam: General: Alert and oriented, not in acute distress. HEENT:EOMI. atraumatic normocephalic. Cardiovascular: Tachycardic, irregularly rhythm. No murmurs gallops rubs Lungs: CTA B no wheezes rales or rhonchi Abdomen:Soft, non-tender, no guarding, nondistended : No CVA tenderness, Chang in place, no hematuria Extremities: Moves all extremities, full range of motio Neurological: No focal neuro deficits, sensation strength intact Skin:Normal color, no rash, no lesions. - Assessment and Plan (1) UTI (urinary tract infection) Current Visit: Yes Status: Acute Assessment and Plan: Patient with known history of CAUTI presented with a UTI Current UTI d/t indwelling Chang catheter secondary to chronic urinary retention Urinalysis shows nitrites and leukocyte esterase Urine cultures show E.Coli., currently day 4 of Zosyn Plan: -Switch to oral Cefdinir -Anticipate D/C tomorrow to complete 7 days total of ABX (2) Atrial flutter with rapid ventricular response Current Visit: Yes Status: Acute Assessment and Plan: Patient presented in atrial flutter with RVR, asymptomatic Patient has a history of similar episode back in May Most likely secondary to infection, sepsis Cardizem drip started 10/15 for persistently elevated HR Switched to oral Cardizem 30 PO Q6Hrs on 10/16 Has been rate controlled ever since Plan: -Heparin for anticoagulation, transition to DOAC in future -Continue cardizem oral -Continue to monitor (3) Sepsis Current Visit: Yes Status: Suspected Assessment and Plan: He presented with tachycardia, leukocytosis, suspected urinary tract infection Patient's had multiple hospitalizations for CAUTI in the past Secondary to indwelling Chang catheter for urinary retention Recently completed a 14 day course of by mouth fluconazole UTI present on admission, urine Cx shows E.Coli. Lactate normal on admission, White count resolved AFEBRILE Sensitive to Cephalosporins Blood Cx pending Plan: -Switch to oral Cefdinir (4) Acute kidney injury Current Visit: Yes Status: Acute Assessment and Plan: Patient presented with serum creatinine 1.96, baseline under 1 Likely secondary to UTI and or chronic urinary retention Chang catheter has been placed Creatinine today under 1, back to baseline Plan: -Renally dose medications -Avoid nephrotoxins if at all possible -Continue to hold lasix, may resume upon discharge Code(s): N17.9 - Acute kidney failure, unspecified (5) Urinary retention Current Visit: Yes Status: Acute Assessment and Plan: Patient had indwelling Chang catheter removed several weeks ago Urinary retention likely secondary to the urinary tract infection Patient takes Flomax home, will resume (6) CHF (congestive heart failure) Current Visit: No Status: Chronic Assessment and Plan: Patient with known history of diastolic congestive heart failure Patient not in acute exacerbation at this time No evidence of volume overload Will continue home meds (7) Diabetes mellitus Current Visit: No Status: Chronic Assessment and Plan: Known history of type 2 diabetes Metformin was on hold due to MELONY Patient receiving basal insulin plus sliding scale correction Plan: -MELONY resolved, continue Metformin on discharge DVT Prophylaxis: Heparin GTT - Time Spent with Patient Total time spent is greater than 50% in coordination of care (as documented) at patient's floor/unit and/or counseling patient: Internal Medicine: Result - Labs CBC & Chem 7: 10/17/18 05:40 10/17/18 05:40 Labs: Short CBC 10/17/18 Range/Units 05:40 WBC 5.4 (4.3-11.1) K/mcL Hgb 9.1 L (12.9-16.9) g/dL Hct 27.2 L (37.5-50.1) % Plt Count 191 (140-400) K/mcL BMP 10/17/18 05:40 Sodium 139 Potassium 3.6 Chloride 107 Carbon Dioxide 24 BUN 9 Creatinine 0.94 Glucose 251 H Calcium 7.7 L - ABG Interpretation ABG results: PT/INR, D-dimer PT 15.4 Seconds (9.4-12.1) H 10/14/18 12:52 Consult Discharge Plan - Plan Referrals: Atilio Lang MD [Primary Care Provider] - (1) UTI (urinary tract infection) Qualifiers: Urinary tract infection type: acute cystitis Hematuria presence: without hematuria Qualified Code(s): N30.00 - Acute cystitis without hematuria (3) Sepsis Qualifiers: Sepsis type: Streptococcus, other Qualified Code(s): A40.8 - Other streptococcal sepsis (7) Diabetes mellitus Qualifiers: Diabetes mellitus type: type 2 Diabetes 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
[2018-10-17] MEDS ORDERED: *HR* Labetalol 20 MG/4 ML SYRINGE IVP PRN (17:10)
[2018-10-17] MEDS: Cefdinir 300 MG CAPSULE PO SCH (21:24)
[2018-10-17] MEDS: rOPINIRole 0.25 MG TABLET PO SCH (21:24)
[2018-10-17] MEDS: Insulin DETEMIR 100 UNIT/ML X5UNITS SQ SCH (21:25)
--- NOTE | 2018-10-17 22:40 | Electrocardiograph Report ---
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
[2018-10-18 01:11] LABS: Hematocrit 27.5 % (37.5-50.1); Hemoglobin 9.2 g/dL (12.9-16.9); Mean Corpuscular HGB Conc 33.5 g/dL (31.6-35.5); Mean Corpuscular Hemoglobin 28.8 pg (28.0-33.3); Mean Corpuscular Volume 86.2 fL (83.0-100.0); Mean Platelet Volume 10.7 fL (9.4-12.4); Platelet Count 217 K/mcL (140-400); Red Blood Count 3.19 M/mcL (4.19-5.50); Red Cell Distribution Width 13.5 % (11.5-14.5); White Blood Count 5.8 K/mcL (4.3-11.1)
[2018-10-18 01:27] LABS: BUN/Creatinine Ratio 10 (6-26); Blood Urea Nitrogen 9 mg/dL (8-23); Calcium 7.8 mg/dL (8.6-10.3); Carbon Dioxide 22 mEq/L (23-29); Chloride 106 mEq/L (98-107); Glucose 307 mg/dL (70-105); Magnesium 1.1 mg/dL (1.6-2.6); Osmolality,Calculated 294 (280-300); Potassium 3.3 mEq/L (3.5-5.1); Sodium 137 mEq/L (136-145); eGFR For African Americans > 60 (> 60); eGFR For Non-African Americans > 60 (> 60)
--- NOTE | 2018-10-18 06:26 | Electrocardiograph Report ---
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
[2018-10-18] MEDS: *HR* Heparin 5,000 UNIT/ML VIAL IVP PRN (07:06)
[2018-10-18] MEDS: Heparin 25,000 UNIT/250 ML D5W 25,000 UNIT/250 ML IV.SOLN IVC SCH (07:11)
--- NOTE | 2018-10-18 07:56 | Discharge Summary ---
<Luis Daniel Heredia - Last Filed: 10/18/18 14:44> - NOTES TO OUTPATIENT PROVIDER Notes to Outpatient Provider: Patient admitted for UTI. Was septic on admission, leukocytosis 12.1, with tachycardia and tachypnea. Treated with IV fluids and started on Zosyn. Patient was given Cardizem for tachycardia which r esolved. Patient was afebrile throughout admission, denied chills. Patient's vitals returned to normal limits, leukocytosis resolved. The urine cultures came back positive for Escherichia coli. The patient was switched to oral Cefdinir and discharged. Follow-up in 1-2 weeks for resolution of symptoms Orders not resulted at time of discharge: Pending orders 10/14/18 10:01 Culture,Blood [BC] Stat 10/18/18 13:00 Heparin anti-factor XA UFH [COAG] Timed Date of Encounter: 10/18/18 Time of Encounter: 09:00 - Discharge Diagnosis (1) UTI (urinary tract infection) Priority: Primary Status: Acute Qualifiers: Urinary tract infection type: acute cystitis Hematuria presence: without hematuria Qualified Code(s): N30.00 - Acute cystitis without hematuria (2) Atrial flutter with rapid ventricular response Priority: Secondary Status: Acute (3) Sepsis Priority: Secondary Status: Suspected Qualifiers: Sepsis type: Streptococcus, other Qualified Code(s): A40.8 - Other streptococcal sepsis (4) Acute kidney injury Priority: Secondary Status: Acute Code(s): N17.9 - Acute kidney failure, unspecified (5) Urinary retention Priority: Secondary Status: Acute (6) Diabetes mellitus Priority: Secondary Status: Chronic Qualifiers: Diabetes mellitus type: type 2 Diabetes mellitus computer terminal operator insulin use: unspecified computer terminal operator insulin use status Diabetes mellitus complication status: without complication Qualified Code(s): E11.9 - Type 2 diabetes mellitus without complications Hospital course: Mr. Khanna is a 72 year old male with history of CVA with residual R sided weakness, DM, HFpEF, recent admission for CAUTI and fungemia, who presented to the ED after being found to have elevated HR at the nursing facility. Patient denied any chest pain, palpitation, orthopnea, PND, edema, nausea/vomiting, diaphoresis, or lightheadedness. Patient has had Chang catheter removed prior to discharge in September and he felt that he did not have any trouble urinating nor dysuria. Patient did not have cough, sputum production, abdominal pain, flank pain, or change in bowel habits. In the ED, he was noted to be tachycardic at 136 but with stable BP and good O2 saturation. Labwork showed leukocytosis of 12.1, creatinine 1.96 (baseline 0.9-1), normal lactic acid and troponin, and urinalysis positive for large amount of leukocyte esterase. He was also noted to have significant urinary retention for which he had Chang inserted, draining 1L of cloudy urine. EKG showed a flutter with RVR. CXR was negative for acute cardiopulmonary process. Pt was given IV fluids, started on Cardizem drip, and admitted for sepsis secondary to presumed UTI. In consultation with infectious disease regarding the patient's history of CAUTI and fungemia, it was decided the patient should be started on Zosyn pending results of urine culture. The patient's leukocytosis subsequently revolved and the patient remained afebrile throughout his hospital admission. Tachycardia was also resolved and the patient converted to normal sinus rhythm. Patient was switched to oral Cardizem 30 mg every 6 hours. Patient did exhibit some hypertension during his stay, for which she was given as needed labetalol. Urine cultures came back positive for Escherichia coli. On hospital day 4 the patient was hemodynamically stable and he was switched to oral Ceftin ear which the Escherichia coli organism was sensitive to. He was deemed stable for discharge and was amenable to the plan of care. Patient was discharged pending placement to [facility]. Discharge discussed with: patient, nurse - Time Spent with Patient Total time spent providing and/or coordinating discharge services: Time spent: Greater than 30 minutes - Discharge Medications Prescriptions: New Cephalexin [Keflex] 500 mg PO QID 3 Days capsule Continued rOPINIRole [Requip] 0.25 mg PO HS Atorvastatin [Lipitor] 40 mg PO HS Escitalopram [Lexapro] 10 mg PO DAILY Nitroglycerin 0.4 mg SL Q5MIN PRN 30 Days #28 tab.subl PRN Reason: Chest Pain Amitriptyline [Elavil] 25 mg PO HS Insulin Human Regular [HumuLIN R] 0 unit SQ TIDAC Metformin HCl 1,000 mg PO BIDWM Furosemide [Lasix] 40 mg PO DAILY Potassium Chloride [Klor-Con 10] 10 meq PO BID Glucagon,Human Recombinant [Glucagen] 1 mg IM PRN PRN PRN Reason: See Comments HYDROcodone/Acet 7.5/325 mg [[place] 7.5-325 mg] 1 tab PO Q6H PRN PRN Reason: Pain Insulin Glargine,Hum.rec.anlog [Basaglar Kwikpen U-100] 18 unit SQ HS Omeprazole [PriLOSEC] 20 mg PO DAILY Ondansetron HCl [Zofran] 4 mg PO TID PRN PRN Reason: Nausea Home Medications: Atorvastatin [Lipitor] 40 mg PO HS 10/04/17 [History] Escitalopram [Lexapro] 10 mg PO DAILY 10/04/17 [History] rOPINIRole [Requip] 0.25 mg PO HS 10/04/17 [History] Nitroglycerin 0.4 mg SL Q5MIN PRN 30 Days #28 tab.subl 10/06/17 [Rx] Amitriptyline [Elavil] 25 mg PO HS 07/18/18 [History] Insulin Human Regular [HumuLIN R] 0 unit SQ TIDAC 07/18/18 [History] Metformin HCl 1,000 mg PO BIDWM 07/18/18 [History] Furosemide [Lasix] 40 mg PO DAILY 09/06/18 [History] Potassium Chloride [Klor-Con 10] 10 meq PO BID 09/06/18 [History] Glucagon,Human Recombinant [Glucagen] 1 mg IM PRN PRN 09/15/18 [History] HYDROcodone/Acet 7.5/325 mg [[place] 7.5-325 mg] 1 tab PO Q6H PRN 09/15/18 [History] Insulin Glargine,Hum.rec.anlog [Basaglar Kwikpen U-100] 18 unit SQ HS 09/15/18 [History] Omeprazole [PriLOSEC] 20 mg PO DAILY 09/15/18 [History] Ondansetron HCl [Zofran] 4 mg PO TID PRN 10/14/18 [History] Cephalexin [Keflex] 500 mg PO QID 3 Days capsule 10/18/18 [Rx] HYDROcodone/Acet 7.5/325 mg [[place] 7.5-325 mg] 1 tab PO PRN PRN 2 Days #4 tablet 10/18/18 [Rx] Allergies/Adverse Reactions: Allergy/AdvReac Type Severity Reaction Status Date / Time shellfish derived Allergy Hives Verified 09/15/18 16:44 Date of admission: 10/16/18 14:38 Primary care physician: Aidan Gomez Consults: 10/17/18 09:40 Consult to Strategic Sourcing Manager [CONS] Routine Reason for SW Consult: PATIENT FROM [facility] Discharging clinician: Tien Vega Anticipated date of discharge: 10/18/18 - Constitutional Vitals: Temp Pulse Resp BP Pulse Ox 97.5 F L 76 15 131/75 93 10/18/18 07:21 10/18/18 07:21 10/18/18 07:21 10/18/18 07:21 10/18/18 07:21 Exam: General: Alert and oriented, not in acute distress. HEENT:EOMI. atraumatic normocephalic. Cardiovascular: Regular rate and rhythm. No murmurs gallops rubs Lungs: CTA B no wheezes rales or rhonchi Abdomen:Soft, non-tender, no guarding, nondistended : No CVA tenderness, Chang in place, no hematuria Extremities: Moves all extremities, full range of motio Neurological: No focal neuro deficits, sensation strength intact Skin:Normal color, no rash, no lesions. - Patient Status Disposition: Home, Self-Care Condition: Fair Functional capacity at discharge: independent ambulation - Discharge Instructions Follow Up With: Atilio Torrez DO [Non-Partnered Physician] - 10/25/18 2:00 pm Forms: ED Satisfaction Letter - Diet and Activity Activity: as per physical therapy Diet: advance to your usual diet <Tien Vega - Last Filed: 10/18/18 17:30> Orders not resulted at time of discharge: Pending orders 10/14/18 10:01 Culture,Blood [BC] Stat Date of Encounter: 10/18/18 - Discharge Diagnosis (1) UTI (urinary tract infection) Status: Acute Qualifiers: Urinary tract infection type: acute cystitis Hematuria presence: without hematuria Qualified Code(s): N30.00 - Acute cystitis without hematuria (2) Type 2 diabetes mellitus Priority: Secondary Status: Chronic Qualifiers: Diabetes mellitus computer terminal operator insulin use: with computer terminal operator use Diabetes mellitus complication status: without complication Qualified Code(s): E11.9 - Type 2 diabetes mellitus without complications; 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 Khanna is a 72 year old male - Time Spent with Patient Total time spent providing and/or coordinating discharge services: Date of admission: 10/16/18 14:38 Primary care physician: Aidan Gomez Consults: 10/17/18 09:40 Consult to Strategic Sourcing Manager [CONS] Routine Reason for SW Consult: PATIENT FROM [facility] - Constitutional Vitals: Temp Pulse Resp BP Pulse Ox 97.9 F 73 16 116/69 97 10/18/18 11:49 10/18/18 11:49 10/18/18 11:49 10/18/18 11:49 10/18/18 11:49 - Attending Attestation I examined this patient and my medical decision-making was reviewed with the Resident Physician on 10/18/18. I agree with the documented findings, disposition and treatment plan as described except to the extent set forth below. Mr Khanna has been admitted for rapid a fib and UTI. He has responded to abx and has converted to NSR. He is now afebrile and ready for discharge home. Heart reg and lungs clear. Abd soft. D/C time 38min
[2018-10-18] MEDS: Insulin LISPRO 300 UNITS/3 ML VIAL SQ SCH (09:15)
[2018-10-18] MEDS: Cefdinir 300 MG CAPSULE PO SCH (09:16)
[2018-10-18] MEDS ORDERED: Insulin LISPRO 300 UNITS/3 ML VIAL SQ SCH ×3 (09:50→21:00)
[2018-10-18 12:12] VITALS: BP 116/69
--- NOTE | 2018-10-18 14:35 | Physician Discharge Referral ---
ExtendedCare Referral Info Transfer To: [place] Provider in Charge: Tien Vega Provider in Charge after Transfer: PCP - Diagnosis (1) UTI (urinary tract infection) Priority: Primary Status: Acute (2) Atrial flutter with rapid ventricular response Priority: Secondary Status: Acute (3) Sepsis Priority: Secondary Status: Suspected (4) Acute kidney injury Priority: Secondary Status: Acute (5) Urinary retention Priority: Secondary Status: Acute (6) CHF (congestive heart failure) Priority: Secondary Status: Chronic (7) Diabetes mellitus Priority: Secondary Status: Chronic - Transfer Medications Prescriptions: Cephalexin [Keflex] 500 mg PO QID 3 Days capsule Home Medications: Atorvastatin [Lipitor] 40 mg PO HS 10/04/17 [History] Escitalopram [Lexapro] 10 mg PO DAILY 10/04/17 [History] rOPINIRole [Requip] 0.25 mg PO HS 10/04/17 [History] Nitroglycerin 0.4 mg SL Q5MIN PRN 30 Days #28 tab.subl 10/06/17 [Rx] Amitriptyline [Elavil] 25 mg PO HS 07/18/18 [History] Insulin Human Regular [HumuLIN R] 0 unit SQ TIDAC 07/18/18 [History] Metformin HCl 1,000 mg PO BIDWM 07/18/18 [History] Furosemide [Lasix] 40 mg PO DAILY 09/06/18 [History] Potassium Chloride [Klor-Con 10] 10 meq PO BID 09/06/18 [History] Glucagon,Human Recombinant [Glucagen] 1 mg IM PRN PRN 09/15/18 [History] HYDROcodone/Acet 7.5/325 mg [[place] 7.5-325 mg] 1 tab PO Q6H PRN 09/15/18 [History] Insulin Glargine,Hum.rec.anlog [Basaglar Kwikpen U-100] 18 unit SQ HS 09/15/18 [History] Omeprazole [PriLOSEC] 20 mg PO DAILY 09/15/18 [History] Ondansetron HCl [Zofran] 4 mg PO TID PRN 10/14/18 [History] Cephalexin [Keflex] 500 mg PO QID 3 Days capsule 10/18/18 [Rx] Allergies/Adverse Reactions: Allergy/AdvReac Type Severity Reaction Status Date / Time shellfish derived Allergy Hives Verified 09/15/18 16:44 - Respiratory Orders Smoking Cessation: Smoking cessation has been advised. For more information, call the [place] Tobacco Quit Line at 3-532-JKJR-NOW. - Advance Directives Code Status: Full Code - Mobility Orders Chair - Rehabiliation Orders Rehab Potential: Good Rehab Orders: Evaluation for Physical Therapy, Evaluation for Occupational Th erapy - Diet Orders Cardiac CERTIFICATION: I certify that the transfer of the above named patient to an Extended Care Facility is necessary for the continuing treatment of the diagnosis listed. The above information is true and accurate reflection of patient's current condition. Confidential - Redisclosure prohibited without a patient's written consent.
[2018-10-18] MEDS: 0.9 % Sodium Chloride 1,000 ML IVC SCH (17:04)
== END 2018-10-18 18:28 | disposition home or self-care (01) | DRG 698 ==
LOC: EMEROOARM 08:00 → 3BNU 08:00 → SUATTDRO 11:14 → 3BNU 12:28
PROVIDERS: ADMIT Internal Medicine; ATTEND Internal Medicine

== ENCOUNTER 2019-02-07 22:00 | Inpatient (IN) ==
[2019-02-07 23:13] LABS: Bilirubin,Urine Negative (Negative); Blood,Urine Negative (Negative); Clarity,Urine Cloudy (Clear); Color,Urine Yellow (Yellow); Glucose,Urine (UA) >=1000 mg/dL (Normal); Ketones,Urine Negative (Negative); Leukocyte Esterase,Urine Moderate (Negative); Nitrite,Urine Positive (Negative); PH,Urine 6.5 pH Units (5.0-8.0); Protein,Urine Trace mg/dL (Neg-Trace); Specific Gravity,Urine 1.025 (1.010-1.025); Urobilinogen,Urine Normal (Normal)
[2019-02-07 23:15] LABS: Bacteria,Urine Many per hpf (None-Few); Hyaline Casts,Urine None Seen per lpf (None-Few); Squamous Epithelial Cell,Urine Few per lpf (None-Few); WBC,Urine TNTC per hpf (0-3)
[2019-02-07 23:17] LABS: Hematocrit 30.6 % (37.5-50.1); Hemoglobin 9.9 g/dL (12.9-16.9); Mean Corpuscular HGB Conc 32.4 g/dL (31.6-35.5); Mean Corpuscular Hemoglobin 28.7 pg (28.0-33.3); Mean Corpuscular Volume 88.7 fL (83.0-100.0); Mean Platelet Volume 10.5 fL (9.4-12.4); Platelet Count 259 K/mcL (140-400); Red Blood Count 3.45 M/mcL (4.19-5.50); Red Cell Distribution Width 13.3 % (11.5-14.5)
[2019-02-07 23:34] LABS: Alanine Aminotransferase 9 Units/L (7-52); Albumin 3.2 g/dL (3.5-5.7); Albumin/Globulin Ratio 0.8 (1.1-2.2); Alkaline Phosphatase 108 Units/L (34-104); Aspartate Amino Transferase 9 Units/L (13-39); BUN/Creatinine Ratio 17 (6-26); Bilirubin,Indirect 0.4 mg/dL (0.0-1.0); Bilirubin,Total 0.4 mg/dL (0.3-1.0); Blood Urea Nitrogen 15 mg/dL (8-23); Calcium 8.9 mg/dL (8.6-10.3); Carbon Dioxide 25 mEq/L (23-29); Chloride 96 mEq/L (98-107); Glucose 499 mg/dL (70-105); Osmolality,Calculated 293 (280-300); Sodium 130 mEq/L (136-145); Total Protein 7.2 g/dL (6.4-8.9); eGFR For African Americans > 60 (> 60); eGFR For Non-African Americans > 60 (> 60)
[2019-02-08] MEDS ORDERED: 0.9 % Sodium Chloride 1,000 ML IVC ONE (00:14)
[2019-02-08] MEDS ORDERED: cefTRIAXone 2,000 MG in Water for inj. (sterile) 20 ML IVPB ONE ×2 (00:14→01:00)
[2019-02-08] MEDS ORDERED: Aspirin 325 MG TABLET PO ONE (00:51)
[2019-02-08 01:36] LABS: Troponin I < 0.03 ng/mL (< 0.04)
[2019-02-08] MEDS ORDERED: Naloxone 0.4 MG/ML INJ IVP PRN (03:58)
[2019-02-08 07:31] LABS: Basophils % 0.4 %; Eosinophils # 0.3 K/mcL (0.0-0.6); Eosinophils % 2.8 %; Hematocrit 27.3 % (37.5-50.1); Immature Granulocytes % 0.3 % (0-4); Lymphocytes # 1.8 K/mcL (0.6-4.6); Lymphocytes % 15.7 %; Mean Corpuscular Hemoglobin 29.1 pg (28.0-33.3); Mean Corpuscular Volume 88.3 fL (83.0-100.0); Mean Platelet Volume 10.8 fL (9.4-12.4); Monocytes # 0.6 K/mcL (0.0-1.3); Monocytes % 5.6 %; Neutrophils # 8.4 K/mcL (1.6-8.9); Platelet Count 228 K/mcL (140-400); Red Blood Count 3.09 M/mcL (4.19-5.50); Red Cell Distribution Width 13.5 % (11.5-14.5); Segmented Neutrophils % 75.2 %; White Blood Count 11.2 K/mcL (4.3-11.1)
[2019-02-08 07:36] LABS: INR 1.1
[2019-02-08 07:59] LABS: Alanine Aminotransferase 8 Units/L (7-52); Albumin 2.9 g/dL (3.5-5.7); Albumin/Globulin Ratio 0.7 (1.1-2.2); Alkaline Phosphatase 99 Units/L (34-104); Aspartate Amino Transferase 8 Units/L (13-39); BUN/Creatinine Ratio 18 (6-26); Bilirubin,Total 0.2 mg/dL (0.3-1.0); Blood Urea Nitrogen 14 mg/dL (8-23); Calcium 8.6 mg/dL (8.6-10.3); Carbon Dioxide 23 mEq/L (23-29); Chloride 99 mEq/L (98-107); Chol/HDL Ratio 3.3 (0-4.9); Cholesterol 85 mg/dL (< 200); Globulin 3.9 g/dL (2.4-3.5); Glucose 325 mg/dL (70-105); HDL Cholesterol 26 mg/dL (40-59); LDL Cholesterol,Calculated 41 mg/dL (0-99); Magnesium 1.5 mg/dL (1.6-2.6); Osmolality,Calculated 289 (280-300); Potassium 3.6 mEq/L (3.5-5.1); Sodium 133 mEq/L (136-145); Total Protein 6.8 g/dL (6.4-8.9); Triglycerides 88 mg/dL (< 150); Troponin I < 0.03 ng/mL (< 0.04); eGFR For African Americans > 60 (> 60); eGFR For Non-African Americans > 60 (> 60)
[2019-02-08] MEDS ORDERED: D5% in Water 1,000 ML IVC PRN (08:24)
[2019-02-08] MEDS ORDERED: Dextrose Gel 15 GM/37.5 ML TUBE PO PRN ×2 (08:24)
[2019-02-08] MEDS ORDERED: *HR* Dextrose 50 % in Water (Syg) 50 ML SYRINGE IVP PRN (08:24)
[2019-02-08 08:42] LABS: Estimated Average Glucose 220 mg/dl
[2019-02-08] MEDS: Insulin LISPRO 300 UNITS/3 ML VIAL SQ SCH ×3 (12:37→20:46)
[2019-02-08] MEDS ORDERED: *HR* HYDROcodone/Acet 7.5/325 mg TABLET PO PRN (15:23)
[2019-02-08] MEDS: Insulin DETEMIR 100 UNIT/ML X5UNITS SQ SCH (20:50)
[2019-02-08] MEDS: rOPINIRole 0.25 MG TABLET PO SCH (20:50)
[2019-02-09 05:20] LABS: Basophils % 0.3 %; Eosinophils # 0.2 K/mcL (0.0-0.6); Eosinophils % 1.7 %; Hematocrit 29.3 % (37.5-50.1); Hemoglobin 9.7 g/dL (12.9-16.9); Immature Granulocytes % 0.7 % (0-4); Immature Reticulocyte % 15.8 % (11.0-38.0); Lymphocytes # 2.3 K/mcL (0.6-4.6); Lymphocytes % 16.8 %; Mean Corpuscular HGB Conc 33.1 g/dL (31.6-35.5); Mean Corpuscular Hemoglobin 28.6 pg (28.0-33.3); Mean Corpuscular Volume 86.4 fL (83.0-100.0); Mean Platelet Volume 10.6 fL (9.4-12.4); Neutrophils # 10.2 K/mcL (1.6-8.9); Platelet Count 276 K/mcL (140-400); Red Blood Count 3.39 M/mcL (4.19-5.50); Red Cell Distribution Width 13.3 % (11.5-14.5); Retculocyte # 0.05 M/mcL (0.05-0.10); Reticulocyte % 1.5 % (1.6-2.8); Segmented Neutrophils % 73.5 %; White Blood Count 13.8 K/mcL (4.3-11.1)
[2019-02-09 05:31] LABS: BUN/Creatinine Ratio 16 (6-26); Blood Urea Nitrogen 12 mg/dL (8-23); Calcium 8.8 mg/dL (8.6-10.3); Carbon Dioxide 22 mEq/L (23-29); Chloride 103 mEq/L (98-107); Glucose 109 mg/dL (70-105); Osmolality,Calculated 276 (280-300); Potassium 3.7 mEq/L (3.5-5.1); Sodium 133 mEq/L (136-145); eGFR For African Americans > 60 (> 60); eGFR For Non-African Americans > 60 (> 60)
[2019-02-09 05:35] LABS: % Iron Saturation 8 % (20-55); Gamma Glutamyl Transpeptidase 25 Units/L (7-64); Iron 16 mcg/dL (65-175); Transferrin 146 mg/dL (203-362)
[2019-02-09 05:51] LABS: Ferritin 514 ng/mL (20-250)
[2019-02-09 05:56] LABS: Folate 10.8 ng/mL (3.0-16.0)
[2019-02-09] MEDS: Insulin LISPRO 300 UNITS/3 ML VIAL SQ SCH ×4 (08:25→22:13)
[2019-02-09] MEDS ORDERED: Furosemide 40 MG TABLET PO SCH (09:00)
[2019-02-09] MEDS: Aspirin 325 MG TABLET PO SCH (10:23)
[2019-02-09] MEDS: cefTRIAXone 1,000 MG in Water for inj. (sterile) 20 ML IVP SCH (10:25)
[2019-02-09] MEDS: rOPINIRole 0.25 MG TABLET PO SCH (20:04)
[2019-02-09] MEDS: Insulin DETEMIR 100 UNIT/ML X5UNITS SQ SCH (20:05)
[2019-02-10 04:57] LABS: Basophils % 0.5 %; Eosinophils # 0.4 K/mcL (0.0-0.6); Eosinophils % 5.1 %; Hematocrit 28.1 % (37.5-50.1); Hemoglobin 9.5 g/dL (12.9-16.9); Immature Granulocytes % 0.4 % (0-4); Lymphocytes # 1.6 K/mcL (0.6-4.6); Lymphocytes % 19.5 %; Mean Corpuscular HGB Conc 33.8 g/dL (31.6-35.5); Mean Corpuscular Hemoglobin 28.8 pg (28.0-33.3); Mean Corpuscular Volume 85.2 fL (83.0-100.0); Mean Platelet Volume 10.4 fL (9.4-12.4); Monocytes # 0.7 K/mcL (0.0-1.3); Monocytes % 8.1 %; Neutrophils # 5.4 K/mcL (1.6-8.9); Platelet Count 270 K/mcL (140-400); Red Cell Distribution Width 13.6 % (11.5-14.5); Segmented Neutrophils % 66.4 %; White Blood Count 8.2 K/mcL (4.3-11.1)
[2019-02-10 05:04] LABS: BUN/Creatinine Ratio 24 (6-26); Blood Urea Nitrogen 21 mg/dL (8-23); Calcium 8.9 mg/dL (8.6-10.3); Carbon Dioxide 22 mEq/L (23-29); Chloride 105 mEq/L (98-107); Glucose 88 mg/dL (70-105); Osmolality,Calculated 280 (280-300); Potassium 3.7 mEq/L (3.5-5.1); Sodium 134 mEq/L (136-145); eGFR For African Americans > 60 (> 60); eGFR For Non-African Americans > 60 (> 60)
[2019-02-10] MEDS: Insulin LISPRO 300 UNITS/3 ML VIAL SQ SCH ×2 (07:15→11:58)
[2019-02-10] MEDS: cefTRIAXone 1,000 MG in Water for inj. (sterile) 20 ML IVP SCH (08:19)
[2019-02-10] MEDS: Aspirin 325 MG TABLET PO SCH (08:20)
[2019-02-10] MEDS ORDERED: Furosemide 20 MG TABLET PO SCH (09:00)
[2019-02-10 11:14] VITALS: BP 135/75
[2019-02-10] MEDS ORDERED: Insulin DETEMIR 100 UNIT/ML X5UNITS SQ SCH (21:00)
== END 2019-02-10 14:42 | DRG 699 ==
LOC: 3BNU 22:00 → EMEROOARM 22:00 → 3BNU 02-08 01:48
PROVIDERS: ADMIT Internal Medicine; ATTEND Internal Medicine

== ENCOUNTER 2019-05-18 03:01 | Inpatient (IN) ==
[2019-05-18 03:18] LABS: Bilirubin,Urine Negative (Negative); Blood,Urine Trace (Negative); Clarity,Urine Cloudy (Clear); Color,Urine Yellow (Yellow); Glucose,Urine (UA) 500 mg/dL (Normal); Ketones,Urine Negative (Negative); Leukocyte Esterase,Urine Large (Negative); Nitrite,Urine Negative (Negative); Protein,Urine 30 mg/dL (Neg-Trace); Specific Gravity,Urine 1.012 (1.010-1.025); Urobilinogen,Urine Normal (Normal)
[2019-05-18 03:20] LABS: Bacteria,Urine Many per hpf (None-Few); Hyaline Casts,Urine None Seen per lpf (None-Few); Squamous Epithelial Cell,Urine None Seen per lpf (None-Few); WBC,Urine TNTC per hpf (0-3)
[2019-05-18 03:29] LABS: RBC,Urine 0-3 per hpf (0-3); Yeast,Urine Moderate per hpf (None Seen)
[2019-05-18 04:02] LABS: Basophils % 0.5 %; Eosinophils # 0.2 K/mcL (0.0-0.6); Eosinophils % 2.4 %; Hematocrit 34.8 % (37.5-50.1); Hemoglobin 11.4 g/dL (12.9-16.9); Immature Granulocytes % 0.3 % (0-4); Lymphocytes # 1.2 K/mcL (0.6-4.6); Lymphocytes % 13.4 %; Mean Corpuscular HGB Conc 32.8 g/dL (31.6-35.5); Mean Corpuscular Hemoglobin 29.8 pg (28.0-33.3); Mean Corpuscular Volume 91.1 fL (83.0-100.0); Mean Platelet Volume 10.2 fL (9.4-12.4); Monocytes # 0.5 K/mcL (0.0-1.3); Monocytes % 5.6 %; Neutrophils # 6.8 K/mcL (1.6-8.9); Platelet Count 184 K/mcL (140-400); Red Blood Count 3.82 M/mcL (4.19-5.50); Red Cell Distribution Width 14.6 % (11.5-14.5); Segmented Neutrophils % 77.8 %; White Blood Count 8.7 K/mcL (4.3-11.1)
[2019-05-18 04:18] LABS: BUN/Creatinine Ratio 22 (6-26); Blood Urea Nitrogen 22 mg/dL (8-23); Calcium 9.6 mg/dL (8.6-10.3); Carbon Dioxide 25 mEq/L (23-29); Chloride 103 mEq/L (98-107); Glucose 142 mg/dL (70-105); Osmolality,Calculated 284 (280-300); Potassium 4.1 mEq/L (3.5-5.1); Sodium 134 mEq/L (136-145); eGFR For African Americans > 60 (> 60); eGFR For Non-African Americans > 60 (> 60)
[2019-05-18 04:21] LABS: Alanine Aminotransferase 18 Units/L (7-52); Albumin 3.6 g/dL (3.5-5.7); Alkaline Phosphatase 96 Units/L (34-104); Aspartate Amino Transferase 18 Units/L (13-39); Bilirubin,Direct 0.1 mg/dL (0.0-0.2); Bilirubin,Indirect 0.2 mg/dL (0.0-1.0); Bilirubin,Total 0.3 mg/dL (0.3-1.0); Globulin 3.6 g/dL (2.4-3.5); Total Protein 7.2 g/dL (6.4-8.9); Troponin I < 0.03 ng/mL (< 0.04)
[2019-05-18] MEDS ORDERED: cefTRIAXone 1,000 MG in Water for inj. (sterile) 10 ML IVP ONE (05:18)
[2019-05-18] MEDS ORDERED: Azithromycin 500 MG in 0.9 % Sodium Chloride 250 ML IVPB ONE (05:18)
[2019-05-18] MEDS ORDERED: 0.9 % Sodium Chloride 500 ML IVC STA (05:38)
[2019-05-18] MEDS ORDERED: D5% in Water 1,000 ML IVC PRN (05:46)
[2019-05-18] MEDS ORDERED: *HR* Dextrose 50 % in Water (Syg) 50 ML SYRINGE IVP PRN (05:46)
[2019-05-18] MEDS ORDERED: Dextrose Gel 15 GM/37.5 ML TUBE PO PRN ×2 (05:46)
[2019-05-18] MEDS ORDERED: Acetaminophen 325 MG TABLET PO PRN (07:36)
[2019-05-18] MEDS ORDERED: Ondansetron 4 MG/2 ML VIAL IVP PRN (07:36)
[2019-05-18] MEDS ORDERED: Naloxone 0.4 MG/ML INJ IVP PRN (07:36)
[2019-05-18] MEDS ORDERED: Ipratropium/Albuterol Neb 3 ML IH PRN (08:55)
[2019-05-18] MEDS ORDERED: Vancomycin 1,750 MG in 0.9 % Sodium Chloride 250 ML IVPB SCH (09:00)
[2019-05-18] MEDS: Nystatin POWDER 30 GM BOTTLE TP SCH ×2 (14:18→21:49)
[2019-05-18 14:32] LABS: Adenovirus Not Detected (Not Detect); Bordetella Pertussis Not Detected (Not Detect); Chlamydophila pneumoniae Not Detected (Not Detect); Coronavirus 229E Not Detected (Not Detect); Coronavirus HKU1 Not Detected (Not Detect); Coronavirus NL63 Not Detected (Not Detect); Coronavirus OC43 Not Detected (Not Detect); Human Metapneumovirus Not Detected (Not Detect); Human Rhinovirus/Enterovirus Not Detected (Not Detect); Influenza A Subtype 2009 H1 Not Detected (Not Detect); Influenza B Not Detected (Not Detect); Mycoplasma pneumoniae Not Detected (Not Detect); Parainfluenza Virus 1 Not Detected (Not Detect); Parainfluenza Virus 2 Not Detected (Not Detect); Parainfluenza Virus 3 Not Detected (Not Detect); Parainfluenza Virus 4 Not Detected (Not Detect); Respiratory Syncytial Virus Not Detected (Not Detect)
[2019-05-18] MEDS ORDERED: Nitroglycerin 0.4 MG TAB.SUBL SL PRN (21:00)
[2019-05-18] MEDS: rOPINIRole 0.25 MG TABLET PO SCH (21:49)
[2019-05-19 03:49] LABS: Basophils # 0.1 K/mcL (0.0-0.2); Basophils % 0.7 %; Eosinophils # 0.5 K/mcL (0.0-0.6); Hematocrit 33.5 % (37.5-50.1); Hemoglobin 10.9 g/dL (12.9-16.9); Immature Granulocytes % 0.4 % (0-4); Lymphocytes # 2.4 K/mcL (0.6-4.6); Mean Corpuscular HGB Conc 32.5 g/dL (31.6-35.5); Mean Corpuscular Hemoglobin 29.4 pg (28.0-33.3); Mean Corpuscular Volume 90.3 fL (83.0-100.0); Mean Platelet Volume 9.9 fL (9.4-12.4); Monocytes # 0.6 K/mcL (0.0-1.3); Monocytes % 8.4 %; Neutrophils # 3.9 K/mcL (1.6-8.9); Platelet Count 197 K/mcL (140-400); Red Blood Count 3.71 M/mcL (4.19-5.50); Red Cell Distribution Width 14.6 % (11.5-14.5); Segmented Neutrophils % 52.5 %; White Blood Count 7.5 K/mcL (4.3-11.1)
[2019-05-19 04:10] LABS: BUN/Creatinine Ratio 23 (6-26); Blood Urea Nitrogen 23 mg/dL (8-23); Calcium 9.6 mg/dL (8.6-10.3); Carbon Dioxide 25 mEq/L (23-29); Chloride 105 mEq/L (98-107); Glucose 169 mg/dL (70-105); Magnesium 2.1 mg/dL (1.6-2.6); Osmolality,Calculated 292 (280-300); Potassium 4.2 mEq/L (3.5-5.1); Sodium 137 mEq/L (136-145); eGFR For African Americans > 60 (> 60); eGFR For Non-African Americans > 60 (> 60)
[2019-05-19] MEDS: cefTRIAXone 1,000 MG in 0.9 % Sodium Chloride Mini Bag 100 ML IVPB SCH (06:02)
[2019-05-19] MEDS: Azithromycin 500 MG in 0.9 % Sodium Chloride 250 ML IVPB SCH (06:39)
[2019-05-19] MEDS ORDERED: *HR* HYDROcodone/Acet 7.5/325 mg TABLET PO PRN (12:14)
[2019-05-19] MEDS: Nystatin POWDER 30 GM BOTTLE TP SCH ×2 (12:14→20:10)
[2019-05-19] MEDS: carvediloL 6.25 MG TABLET PO SCH ×2 (12:19→18:02)
[2019-05-19] MEDS ORDERED: Aminoglycoside Consult 1 EACH MC ONE (13:37)
[2019-05-19 17:51] LABS: Estimated Average Glucose 229 mg/dl
[2019-05-19] MEDS: Insulin LISPRO 300 UNITS/3 ML VIAL SQ SCH ×2 (18:01→20:06)
[2019-05-19] MEDS: rOPINIRole 0.25 MG TABLET PO SCH (20:10)
[2019-05-20] MEDS: cefTRIAXone 1,000 MG in 0.9 % Sodium Chloride Mini Bag 100 ML IVPB SCH (05:23)
[2019-05-20] MEDS: Azithromycin 500 MG in 0.9 % Sodium Chloride 250 ML IVPB SCH (05:23)
[2019-05-20 05:39] LABS: Basophils # 0.1 K/mcL (0.0-0.2); Basophils % 0.9 %; Eosinophils # 0.4 K/mcL (0.0-0.6); Eosinophils % 6.1 %; Hematocrit 33.6 % (37.5-50.1); Hemoglobin 11.2 g/dL (12.9-16.9); Immature Granulocytes % 0.4 % (0-4); Lymphocytes # 2.2 K/mcL (0.6-4.6); Lymphocytes % 31.6 %; Mean Corpuscular HGB Conc 33.3 g/dL (31.6-35.5); Mean Corpuscular Hemoglobin 29.1 pg (28.0-33.3); Mean Corpuscular Volume 87.3 fL (83.0-100.0); Mean Platelet Volume 9.8 fL (9.4-12.4); Monocytes # 0.6 K/mcL (0.0-1.3); Monocytes % 8.3 %; Neutrophils # 3.6 K/mcL (1.6-8.9); Platelet Count 195 K/mcL (140-400); Red Blood Count 3.85 M/mcL (4.19-5.50); Red Cell Distribution Width 14.6 % (11.5-14.5); Segmented Neutrophils % 52.7 %; White Blood Count 6.9 K/mcL (4.3-11.1)
[2019-05-20 06:01] LABS: BUN/Creatinine Ratio 22 (6-26); Blood Urea Nitrogen 22 mg/dL (8-23); Calcium 9.4 mg/dL (8.6-10.3); Carbon Dioxide 24 mEq/L (23-29); Chloride 104 mEq/L (98-107); Glucose 179 mg/dL (70-105); Osmolality,Calculated 288 (280-300); Potassium 4.2 mEq/L (3.5-5.1); Sodium 135 mEq/L (136-145); eGFR For African Americans > 60 (> 60); eGFR For Non-African Americans > 60 (> 60)
[2019-05-20] MEDS: carvediloL 6.25 MG TABLET PO SCH ×2 (08:37→18:00)
[2019-05-20] MEDS: Insulin LISPRO 300 UNITS/3 ML VIAL SQ SCH ×4 (08:37→21:32)
[2019-05-20] MEDS: Nystatin POWDER 30 GM BOTTLE TP SCH ×2 (08:38→21:35)
[2019-05-20] MEDS: rOPINIRole 0.25 MG TABLET PO SCH (21:32)
[2019-05-21 05:50] LABS: BUN/Creatinine Ratio 23 (6-26); Blood Urea Nitrogen 27 mg/dL (8-23); Calcium 9.4 mg/dL (8.6-10.3); Carbon Dioxide 18 mEq/L (23-29); Chloride 106 mEq/L (98-107); Glucose 246 mg/dL (70-105); Osmolality,Calculated 287 (280-300); Potassium 4.5 mEq/L (3.5-5.1); Sodium 132 mEq/L (136-145); eGFR For African Americans > 60 (> 60); eGFR For Non-African Americans > 60 (> 60)
[2019-05-21 06:15] LABS: Basophils # 0.1 K/mcL (0.0-0.2); Basophils % 0.7 %; Eosinophils # 0.4 K/mcL (0.0-0.6); Eosinophils % 6.2 %; Hematocrit 34.3 % (37.5-50.1); Hemoglobin 11.3 g/dL (12.9-16.9); Immature Granulocytes % 0.3 % (0-4); Lymphocytes # 2.4 K/mcL (0.6-4.6); Lymphocytes % 33.7 %; Mean Corpuscular HGB Conc 32.9 g/dL (31.6-35.5); Mean Corpuscular Hemoglobin 29.4 pg (28.0-33.3); Mean Corpuscular Volume 89.1 fL (83.0-100.0); Mean Platelet Volume 9.7 fL (9.4-12.4); Monocytes # 0.5 K/mcL (0.0-1.3); Monocytes % 7.7 %; Neutrophils # 3.6 K/mcL (1.6-8.9); Platelet Count 202 K/mcL (140-400); Red Blood Count 3.85 M/mcL (4.19-5.50); Red Cell Distribution Width 14.5 % (11.5-14.5); Segmented Neutrophils % 51.4 %
[2019-05-21 06:45] VITALS: BP 138/82
[2019-05-21] MEDS ORDERED: Azithromycin 250 MG TABLET PO SCH (09:00)
[2019-05-21] MEDS ORDERED: Cefdinir 300 MG CAPSULE PO SCH (09:00)
[2019-05-21] MEDS: carvediloL 6.25 MG TABLET PO SCH (09:08)
[2019-05-21] MEDS: Nystatin POWDER 30 GM BOTTLE TP SCH (09:08)
[2019-05-21] MEDS: Insulin LISPRO 300 UNITS/3 ML VIAL SQ SCH ×2 (09:09→12:37)
== END 2019-05-21 13:38 | disposition home or self-care (01) | DRG 698 ==
LOC: 3BNU 03:01 → EMEROOARM 03:01 → SUATTDRO 06:23 → 3BNU 06:48 → SUATTDRO 05-19 14:47
PROVIDERS: ADMIT Internal Medicine; ATTEND Internal Medicine

== ENCOUNTER 2019-07-05 22:17 | Inpatient (IN) ==
[2019-07-05 22:37] LABS: Basophils % 0.5 %; Eosinophils # 0.1 K/mcL (0.0-0.6); Eosinophils % 0.6 %; Hematocrit 40.7 % (37.5-50.1); Hemoglobin 13.4 g/dL (12.9-16.9); Immature Granulocytes % 0.4 % (0-4); Lymphocytes # 0.9 K/mcL (0.6-4.6); Lymphocytes % 11.2 %; Mean Corpuscular HGB Conc 32.9 g/dL (31.6-35.5); Mean Corpuscular Hemoglobin 29.3 pg (28.0-33.3); Mean Corpuscular Volume 89.1 fL (83.0-100.0); Monocytes # 0.8 K/mcL (0.0-1.3); Monocytes % 9.6 %; Neutrophils # 6.2 K/mcL (1.6-8.9); Platelet Count 203 K/mcL (140-400); Red Blood Count 4.57 M/mcL (4.19-5.50); Red Cell Distribution Width 13.2 % (11.5-14.5); Segmented Neutrophils % 77.7 %
[2019-07-05 22:50] LABS: INR 1.1; Prothrombin Time 12.9 Seconds (9.4-12.1)
[2019-07-05 22:53] LABS: Activated Partial Thrombo Time 29.9 Seconds (26.0-36.0); Alanine Aminotransferase 19 Units/L (7-52); Albumin 4.3 g/dL (3.5-5.7); Alkaline Phosphatase 121 Units/L (34-104); Aspartate Amino Transferase 18 Units/L (13-39); BUN/Creatinine Ratio 24 (6-26); Bilirubin,Total 0.5 mg/dL (0.3-1.0); Blood Urea Nitrogen 28 mg/dL (8-23); Calcium 10.2 mg/dL (8.6-10.3); Carbon Dioxide 24 mEq/L (23-29); Chloride 102 mEq/L (98-107); Globulin 4.2 g/dL (2.4-3.5); Glucose 229 mg/dL (70-105); Osmolality,Calculated 289 (280-300); Potassium 4.2 mEq/L (3.5-5.1); Sodium 133 mEq/L (136-145); Total Protein 8.5 g/dL (6.4-8.9); eGFR For African Americans > 60 (> 60); eGFR For Non-African Americans > 60 (> 60)
[2019-07-05 22:55] LABS: Troponin I < 0.03 ng/mL (< 0.04)
[2019-07-05 23:17] LABS: Bilirubin,Urine Negative (Negative); Blood,Urine Small (Negative); Clarity,Urine Cloudy (Clear); Color,Urine Yellow (Yellow); Glucose,Urine (UA) >=1000 mg/dL (Normal); Ketones,Urine Negative (Negative); Leukocyte Esterase,Urine Moderate (Negative); Nitrite,Urine Negative (Negative); PH,Urine 6.5 pH Units (5.0-8.0); Protein,Urine 100 mg/dL (Neg-Trace); Specific Gravity,Urine 1.025 (1.010-1.025); Urobilinogen,Urine Normal (Normal)
[2019-07-05 23:20] LABS: Bacteria,Urine Many per hpf (None-Few); Hyaline Casts,Urine None Seen per lpf (None-Few); Squamous Epithelial Cell,Urine None Seen per lpf (None-Few)
[2019-07-05 23:29] LABS: RBC,Urine 0-3 per hpf (0-3); WBC,Urine 50-100 per hpf (0-3); Yeast,Urine Many per hpf (None Seen)
[2019-07-05] MEDS ORDERED: cefTRIAXone 1,000 MG in Water for inj. (sterile) 10 ML IVPB ONE (23:36)
[2019-07-05] MEDS ORDERED: Naloxone 0.4 MG/ML INJ IVP PRN (23:54)
[2019-07-06] MEDS ORDERED: *HR* Dextrose 50 % in Water (Syg) 50 ML SYRINGE IVP PRN (00:08)
[2019-07-06] MEDS ORDERED: D5% in Water 1,000 ML IVC PRN (00:08)
[2019-07-06] MEDS ORDERED: Dextrose Gel 15 GM/37.5 ML TUBE PO PRN ×2 (00:08)
[2019-07-06] MEDS: Insulin LISPRO 300 UNITS/3 ML VIAL SQ SCH ×5 (02:19→19:54)
[2019-07-06] MEDS ORDERED: *HR* HYDROcodone/Acet 7.5/325 mg TABLET PO PRN (02:20)
[2019-07-06] MEDS ORDERED: Nitroglycerin 0.4 MG TAB.SUBL SL PRN (02:20)
[2019-07-06 02:35] LABS: Basophils % 0.5 %; Eosinophils % 0.2 %; Hematocrit 41.6 % (37.5-50.1); Hemoglobin 13.2 g/dL (12.9-16.9); Immature Granulocytes % 0.4 % (0-4); Lymphocytes # 1.3 K/mcL (0.6-4.6); Lymphocytes % 15.4 %; Mean Corpuscular HGB Conc 31.7 g/dL (31.6-35.5); Mean Corpuscular Hemoglobin 28.7 pg (28.0-33.3); Mean Corpuscular Volume 90.4 fL (83.0-100.0); Mean Platelet Volume 10.3 fL (9.4-12.4); Monocytes # 0.9 K/mcL (0.0-1.3); Monocytes % 10.5 %; Neutrophils # 6.2 K/mcL (1.6-8.9); Platelet Count 196 K/mcL (140-400); Red Cell Distribution Width 13.4 % (11.5-14.5); White Blood Count 8.5 K/mcL (4.3-11.1)
[2019-07-06 02:55] LABS: BUN/Creatinine Ratio 22 (6-26); Blood Urea Nitrogen 28 mg/dL (8-23); Carbon Dioxide 24 mEq/L (23-29); Chloride 99 mEq/L (98-107); Glucose 253 mg/dL (70-105); Osmolality,Calculated 292 (280-300); Potassium 4.4 mEq/L (3.5-5.1); Sodium 134 mEq/L (136-145); eGFR For African Americans > 60 (> 60); eGFR For Non-African Americans 56 (> 60)
[2019-07-06] MEDS ORDERED: Insulin LISPRO 300 UNITS/3 ML VIAL SQ SCH ×2 (06:00→18:00)
[2019-07-06] MEDS ORDERED: Perflutren Lipid Microsphere 1.3 ML in 0.9 % Sodium Chloride 8.7 ML IVP ONE (07:40)
[2019-07-06] MEDS: Lactobacillus 1 EACH CAP.SPRINK PO SCH (08:58)
[2019-07-06] MEDS: carvediloL 6.25 MG TABLET PO SCH ×2 (08:58→17:44)
[2019-07-06] MEDS: Nystatin POWDER 30 GM BOTTLE TP SCH ×2 (08:59→20:03)
[2019-07-06] MEDS: Aspirin 81 MG TAB.CHEW PO SCH (11:27)
[2019-07-06] MEDS: cefTRIAXone 2,000 MG in Water for inj. (sterile) 20 ML IVP SCH (17:43)
[2019-07-06] MEDS: *HR* Heparin 5,000 UNIT/ML VIAL SQ SCH (17:44)
[2019-07-06] MEDS: rOPINIRole 0.25 MG TABLET PO SCH (20:02)
[2019-07-06] MEDS: Insulin DETEMIR 100 UNIT/ML X5UNITS SQ SCH (20:02)
[2019-07-07 05:21] LABS: Hematocrit 36.6 % (37.5-50.1); Hemoglobin 11.8 g/dL (12.9-16.9); Mean Corpuscular HGB Conc 32.2 g/dL (31.6-35.5); Mean Corpuscular Hemoglobin 29.1 pg (28.0-33.3); Mean Corpuscular Volume 90.1 fL (83.0-100.0); Mean Platelet Volume 10.2 fL (9.4-12.4); Platelet Count 173 K/mcL (140-400); Red Blood Count 4.06 M/mcL (4.19-5.50); Red Cell Distribution Width 13.7 % (11.5-14.5); White Blood Count 6.1 K/mcL (4.3-11.1)
[2019-07-07] MEDS: *HR* Heparin 5,000 UNIT/ML VIAL SQ SCH ×2 (05:27→17:15)
[2019-07-07 05:37] LABS: BUN/Creatinine Ratio 26 (6-26); Blood Urea Nitrogen 32 mg/dL (8-23); Calcium 9.2 mg/dL (8.6-10.3); Carbon Dioxide 23 mEq/L (23-29); Chloride 104 mEq/L (98-107); Glucose 144 mg/dL (70-105); Osmolality,Calculated 289 (280-300); Potassium 3.9 mEq/L (3.5-5.1); Sodium 135 mEq/L (136-145); eGFR For African Americans > 60 (> 60); eGFR For Non-African Americans 58 (> 60)
[2019-07-07] MEDS: Insulin LISPRO 300 UNITS/3 ML VIAL SQ SCH ×4 (08:06→22:10)
[2019-07-07] MEDS: Lactobacillus 1 EACH CAP.SPRINK PO SCH (08:06)
[2019-07-07] MEDS: carvediloL 6.25 MG TABLET PO SCH ×2 (08:06→17:14)
[2019-07-07] MEDS: Aspirin 81 MG TAB.CHEW PO SCH (08:06)
[2019-07-07] MEDS: Nystatin POWDER 30 GM BOTTLE TP SCH ×2 (08:07→22:11)
[2019-07-07] MEDS: cefTRIAXone 2,000 MG in Water for inj. (sterile) 20 ML IVP SCH (17:15)
[2019-07-07] MEDS: Insulin DETEMIR 100 UNIT/ML X5UNITS SQ SCH (22:10)
[2019-07-07] MEDS: rOPINIRole 0.25 MG TABLET PO SCH (22:11)
[2019-07-08 01:48] LABS: Hematocrit 37.1 % (37.5-50.1); Mean Corpuscular HGB Conc 32.3 g/dL (31.6-35.5); Mean Corpuscular Hemoglobin 29.6 pg (28.0-33.3); Mean Corpuscular Volume 91.6 fL (83.0-100.0); Mean Platelet Volume 10.6 fL (9.4-12.4); Platelet Count 147 K/mcL (140-400); Red Blood Count 4.05 M/mcL (4.19-5.50); Red Cell Distribution Width 13.6 % (11.5-14.5); White Blood Count 5.6 K/mcL (4.3-11.1)
[2019-07-08 01:55] LABS: BUN/Creatinine Ratio 30 (6-26); Blood Urea Nitrogen 34 mg/dL (8-23); Calcium 8.6 mg/dL (8.6-10.3); Carbon Dioxide 21 mEq/L (23-29); Chloride 100 mEq/L (98-107); Glucose 113 mg/dL (70-105); Osmolality,Calculated 278 (280-300); Potassium 3.8 mEq/L (3.5-5.1); Sodium 130 mEq/L (136-145); eGFR For African Americans > 60 (> 60); eGFR For Non-African Americans > 60 (> 60)
[2019-07-08] MEDS: *HR* Heparin 5,000 UNIT/ML VIAL SQ SCH ×2 (05:29→17:33)
[2019-07-08] MEDS: carvediloL 6.25 MG TABLET PO SCH ×2 (09:03→17:33)
[2019-07-08] MEDS: Aspirin 81 MG TAB.CHEW PO SCH (09:03)
[2019-07-08] MEDS: Lactobacillus 1 EACH CAP.SPRINK PO SCH (09:03)
[2019-07-08] MEDS: Insulin LISPRO 300 UNITS/3 ML VIAL SQ SCH ×4 (09:04→20:40)
[2019-07-08] MEDS: Nystatin POWDER 30 GM BOTTLE TP SCH ×2 (09:05→21:36)
[2019-07-08] MEDS ORDERED: 0.9 % Sodium Chloride 250 ML IVC SCH (10:00)
[2019-07-08] MEDS ORDERED: 0.9 % Sodium Chloride 500 ML IVC SCH (10:00)
[2019-07-08 16:41] LABS: BUN/Creatinine Ratio 29 (6-26); Blood Urea Nitrogen 36 mg/dL (8-23); Calcium 8.5 mg/dL (8.6-10.3); Carbon Dioxide 16 mEq/L (23-29); Chloride 101 mEq/L (98-107); Glucose 180 mg/dL (70-105); Osmolality,Calculated 277 (280-300); Potassium 4.4 mEq/L (3.5-5.1); Sodium 127 mEq/L (136-145); eGFR For African Americans > 60 (> 60); eGFR For Non-African Americans 57 (> 60)
[2019-07-08] MEDS: cefTRIAXone 2,000 MG in Water for inj. (sterile) 20 ML IVP SCH (17:33)
[2019-07-08] MEDS: rOPINIRole 0.25 MG TABLET PO SCH (20:46)
[2019-07-08] MEDS: Insulin DETEMIR 100 UNIT/ML X5UNITS SQ SCH (20:46)
[2019-07-08 21:25] LABS: Thyroid Stimulating Hormone 1.234 mcIU/mL (0.340-5.600)
[2019-07-09 01:29] LABS: Hematocrit 35.1 % (37.5-50.1); Hemoglobin 11.8 g/dL (12.9-16.9); Mean Corpuscular HGB Conc 33.6 g/dL (31.6-35.5); Mean Corpuscular Hemoglobin 30.2 pg (28.0-33.3); Mean Corpuscular Volume 89.8 fL (83.0-100.0); Mean Platelet Volume 10.4 fL (9.4-12.4); Platelet Count 139 K/mcL (140-400); Red Blood Count 3.91 M/mcL (4.19-5.50); Red Cell Distribution Width 13.5 % (11.5-14.5); White Blood Count 6.2 K/mcL (4.3-11.1)
[2019-07-09 01:48] LABS: BUN/Creatinine Ratio 30 (6-26); Blood Urea Nitrogen 37 mg/dL (8-23); Calcium 8.6 mg/dL (8.6-10.3); Carbon Dioxide 20 mEq/L (23-29); Chloride 101 mEq/L (98-107); Glucose 81 mg/dL (70-105); Osmolality,Calculated 276 (280-300); Potassium 3.9 mEq/L (3.5-5.1); Sodium 129 mEq/L (136-145); eGFR For African Americans > 60 (> 60); eGFR For Non-African Americans 57 (> 60)
[2019-07-09] MEDS: *HR* Heparin 5,000 UNIT/ML VIAL SQ SCH ×2 (05:28→16:27)
[2019-07-09] MEDS: Insulin LISPRO 300 UNITS/3 ML VIAL SQ SCH ×4 (07:41→20:00)
[2019-07-09] MEDS: Lactobacillus 1 EACH CAP.SPRINK PO SCH (07:42)
[2019-07-09] MEDS: carvediloL 6.25 MG TABLET PO SCH ×2 (07:43→16:26)
[2019-07-09] MEDS: Aspirin 81 MG TAB.CHEW PO SCH (07:43)
[2019-07-09] MEDS: Nystatin POWDER 30 GM BOTTLE TP SCH ×2 (07:45→20:03)
[2019-07-09] MEDS: cefTRIAXone 2,000 MG in Water for inj. (sterile) 20 ML IVP SCH (16:20)
[2019-07-09] MEDS: Insulin DETEMIR 100 UNIT/ML X5UNITS SQ SCH (20:02)
[2019-07-09] MEDS: rOPINIRole 0.25 MG TABLET PO SCH (20:02)
[2019-07-10] MEDS: *HR* Heparin 5,000 UNIT/ML VIAL SQ SCH ×2 (05:32→17:24)
[2019-07-10 07:42] LABS: Hemoglobin 12.1 g/dL (12.9-16.9)
[2019-07-10 07:44] LABS: Hematocrit 36.6 % (37.5-50.1); Immature Platelets 3.9 % (1.1-6.1); Mean Corpuscular HGB Conc 33.1 g/dL (31.6-35.5); Mean Corpuscular Hemoglobin 29.3 pg (28.0-33.3); Mean Corpuscular Volume 88.6 fL (83.0-100.0); Red Blood Count 4.13 M/mcL (4.19-5.50); Red Cell Distribution Width 13.4 % (11.5-14.5); White Blood Count 5.2 K/mcL (4.3-11.1)
[2019-07-10 07:54] LABS: BUN/Creatinine Ratio 28 (6-26); Blood Urea Nitrogen 35 mg/dL (8-23); Calcium 8.6 mg/dL (8.6-10.3); Carbon Dioxide 22 mEq/L (23-29); Chloride 100 mEq/L (98-107); Glucose 131 mg/dL (70-105); Osmolality,Calculated 280 (280-300); Potassium 3.9 mEq/L (3.5-5.1); Sodium 130 mEq/L (136-145); Uric Acid 7.5 mg/dL (2.3-7.6); eGFR For African Americans > 60 (> 60); eGFR For Non-African Americans 57 (> 60)
[2019-07-10 08:06] LABS: Thyroid Stimulating Hormone 1.44 mcIU/mL (0.340-5.600)
[2019-07-10] MEDS: Insulin LISPRO 300 UNITS/3 ML VIAL SQ SCH ×4 (08:23→21:39)
[2019-07-10] MEDS: Lactobacillus 1 EACH CAP.SPRINK PO SCH (08:30)
[2019-07-10] MEDS: carvediloL 6.25 MG TABLET PO SCH ×2 (08:31→17:23)
[2019-07-10] MEDS: Aspirin 81 MG TAB.CHEW PO SCH (08:31)
[2019-07-10] MEDS: Nystatin POWDER 30 GM BOTTLE TP SCH ×2 (08:32→22:21)
[2019-07-10] MEDS ORDERED: Ampicillin/Sulbactam 3,000 MG in 0.9 % Sodium Chloride 100 ML IVPB SCH (12:00)
[2019-07-10] MEDS ORDERED: Fluconazole 400 MG/200 ML 400 MG/200 ML BAG IVPB ONE (12:50)
[2019-07-10] MEDS: Ampicillin/Sulbactam 3,000 MG in 0.9 % Sodium Chloride Mini Bag 100 ML IVPB SCH ×2 (13:43→21:32)
[2019-07-10] MEDS: Ipratropium/Albuterol Neb 3 ML IH SCH ×2 (16:01→22:13)
[2019-07-10] MEDS ORDERED: Acetaminophen 325 MG TABLET PO PRN (20:53)
[2019-07-10] MEDS: rOPINIRole 0.25 MG TABLET PO SCH ×2 (21:32→22:10)
[2019-07-10 22:16] LABS: ABG Base Excess -3 mEq/L (-2 to 3); ABG HCO3 22 mEq/L (21-27); ABG Oxygen Saturation 91 % (95-98); ABG PCO2 36 mmHg (35-45); ABG PH 7.39 pH Units (7.32-7.45); ABG PO2 61 mmHg (85-104); ABG TCO2 23 mEq/L (20-26)
[2019-07-10] MEDS: Insulin DETEMIR 100 UNIT/ML X5UNITS SQ SCH (22:21)
[2019-07-11] MEDS ORDERED: Ampicillin/Sulbactam 3,000 MG in 0.9 % Sodium Chloride Mini Bag 100 ML IVPB SCH (03:00)
[2019-07-11] MEDS ORDERED: Ipratropium 1 PUFF INHALER IH SCH (04:00)
[2019-07-11] MEDS: *HR* Heparin 5,000 UNIT/ML VIAL SQ SCH ×2 (04:37→19:57)
[2019-07-11 06:40] LABS: Basophils % 0.2 %; Hematocrit 36.3 % (37.5-50.1); Hemoglobin 12.6 g/dL (12.9-16.9); Immature Granulocytes % 0.3 % (0-4); Immature Platelets 4.2 % (1.1-6.1); Lymphocytes # 1.6 K/mcL (0.6-4.6); Lymphocytes % 25.2 %; Mean Corpuscular HGB Conc 34.7 g/dL (31.6-35.5); Mean Corpuscular Hemoglobin 29.6 pg (28.0-33.3); Mean Corpuscular Volume 85.2 fL (83.0-100.0); Mean Platelet Volume 10.9 fL (9.4-12.4); Monocytes # 0.3 K/mcL (0.0-1.3); Monocytes % 5.1 %; Neutrophils # 4.3 K/mcL (1.6-8.9); Platelet Count 121 K/mcL (140-400); Red Blood Count 4.26 M/mcL (4.19-5.50); Red Cell Distribution Width 13.5 % (11.5-14.5); Segmented Neutrophils % 69.2 %; White Blood Count 6.2 K/mcL (4.3-11.1)
[2019-07-11 06:47] LABS: BUN/Creatinine Ratio 31 (6-26); Blood Urea Nitrogen 33 mg/dL (8-23); Calcium 8.5 mg/dL (8.6-10.3); Carbon Dioxide 19 mEq/L (23-29); Chloride 103 mEq/L (98-107); Glucose 136 mg/dL (70-105); Osmolality,Calculated 285 (280-300); Potassium 4.6 mEq/L (3.5-5.1); Sodium 133 mEq/L (136-145); eGFR For African Americans > 60 (> 60); eGFR For Non-African Americans > 60 (> 60)
[2019-07-11] MEDS ORDERED: Acetaminophen 325 MG TABLET PO PRN (07:28)
[2019-07-11] MEDS ORDERED: Dextrose Gel 15 GM/37.5 ML TUBE PO PRN ×2 (07:28)
[2019-07-11] MEDS ORDERED: Nitroglycerin 0.4 MG TAB.SUBL SL PRN (07:28)
[2019-07-11] MEDS ORDERED: *HR* HYDROcodone/Acet 7.5/325 mg TABLET PO PRN (07:28)
[2019-07-11] MEDS ORDERED: D5% in Water 1,000 ML IVC PRN (07:28)
[2019-07-11] MEDS ORDERED: Naloxone 0.4 MG/ML INJ IVP PRN (07:28)
[2019-07-11] MEDS: Insulin LISPRO 300 UNITS/3 ML VIAL SQ SCH ×4 (09:11→20:16)
[2019-07-11] MEDS: Aspirin 81 MG TAB.CHEW PO SCH (09:12)
[2019-07-11] MEDS: Nystatin POWDER 30 GM BOTTLE TP SCH ×2 (09:12→20:16)
[2019-07-11] MEDS: carvediloL 6.25 MG TABLET PO SCH ×2 (09:12→16:28)
[2019-07-11] MEDS: Lactobacillus 1 EACH CAP.SPRINK PO SCH (09:12)
[2019-07-11] MEDS: Ipratropium 1 PUFF INHALER IH SCH ×3 (10:11→20:17)
[2019-07-11] MEDS: Ampicillin/Sulbactam 3,000 MG in 0.9 % Sodium Chloride Mini Bag 100 ML IVPB SCH ×3 (12:21→20:26)
[2019-07-11] MEDS: Insulin DETEMIR 100 UNIT/ML X5UNITS SQ SCH (19:58)
[2019-07-11] MEDS: rOPINIRole 0.25 MG TABLET PO SCH (19:59)
[2019-07-12] MEDS: Ipratropium 1 PUFF INHALER IH SCH ×4 (02:50→23:09)
[2019-07-12] MEDS: Ampicillin/Sulbactam 3,000 MG in 0.9 % Sodium Chloride Mini Bag 100 ML IVPB SCH ×4 (02:51→19:59)
[2019-07-12 04:47] LABS: Basophils % 0.2 %; Eosinophils % 0.2 %; Hematocrit 40.2 % (37.5-50.1); Hemoglobin 13.1 g/dL (12.9-16.9); Immature Granulocytes % 0.3 % (0-4); Lymphocytes # 1.6 K/mcL (0.6-4.6); Lymphocytes % 27.1 %; Mean Corpuscular HGB Conc 32.6 g/dL (31.6-35.5); Mean Corpuscular Hemoglobin 28.9 pg (28.0-33.3); Mean Corpuscular Volume 88.7 fL (83.0-100.0); Mean Platelet Volume 10.3 fL (9.4-12.4); Monocytes # 0.4 K/mcL (0.0-1.3); Monocytes % 6.1 %; Neutrophils # 3.9 K/mcL (1.6-8.9); Platelet Count 151 K/mcL (140-400); Red Blood Count 4.53 M/mcL (4.19-5.50); Red Cell Distribution Width 13.7 % (11.5-14.5); Segmented Neutrophils % 66.1 %; White Blood Count 5.9 K/mcL (4.3-11.1)
[2019-07-12 05:06] LABS: BUN/Creatinine Ratio 31 (6-26); Blood Urea Nitrogen 33 mg/dL (8-23); Calcium 9.1 mg/dL (8.6-10.3); Carbon Dioxide 19 mEq/L (23-29); Chloride 103 mEq/L (98-107); Glucose 181 mg/dL (70-105); Osmolality,Calculated 292 (280-300); Sodium 135 mEq/L (136-145); eGFR For African Americans > 60 (> 60); eGFR For Non-African Americans > 60 (> 60)
[2019-07-12] MEDS: *HR* Heparin 5,000 UNIT/ML VIAL SQ SCH (05:42)
[2019-07-12] MEDS: Insulin LISPRO 300 UNITS/3 ML VIAL SQ SCH ×4 (08:33→20:49)
[2019-07-12] MEDS: carvediloL 6.25 MG TABLET PO SCH ×2 (08:33→18:20)
[2019-07-12] MEDS: Nystatin POWDER 30 GM BOTTLE TP SCH ×2 (08:33→20:01)
[2019-07-12] MEDS: Aspirin 81 MG TAB.CHEW PO SCH (08:33)
[2019-07-12] MEDS: Lactobacillus 1 EACH CAP.SPRINK PO SCH (08:33)
[2019-07-12] MEDS: *HR* Enoxaparin 40 MG/0.4 ML SYRINGE SQ SCH (12:04)
[2019-07-12] MEDS: rOPINIRole 0.25 MG TABLET PO SCH (20:00)
[2019-07-12] MEDS: Insulin DETEMIR 100 UNIT/ML X5UNITS SQ SCH (20:00)
[2019-07-13] MEDS: Ampicillin/Sulbactam 3,000 MG in 0.9 % Sodium Chloride Mini Bag 100 ML IVPB SCH ×5 (02:56→22:10)
[2019-07-13] MEDS: Ipratropium 1 PUFF INHALER IH SCH ×4 (02:57→22:11)
[2019-07-13 03:55] LABS: Hemoglobin 12.7 g/dL (12.9-16.9); Mean Corpuscular HGB Conc 32.6 g/dL (31.6-35.5); Mean Corpuscular Hemoglobin 29.6 pg (28.0-33.3); Mean Corpuscular Volume 90.9 fL (83.0-100.0); Platelet Count 149 K/mcL (140-400); Red Blood Count 4.29 M/mcL (4.19-5.50); Red Cell Distribution Width 13.7 % (11.5-14.5); White Blood Count 5.3 K/mcL (4.3-11.1)
[2019-07-13 05:58] LABS: BUN/Creatinine Ratio 29 (6-26); Blood Urea Nitrogen 31 mg/dL (8-23); Calcium 8.6 mg/dL (8.6-10.3); Carbon Dioxide 22 mEq/L (23-29); Chloride 109 mEq/L (98-107); Glucose 141 mg/dL (70-105); Osmolality,Calculated 297 (280-300); Potassium 4.6 mEq/L (3.5-5.1); Sodium 139 mEq/L (136-145); eGFR For African Americans > 60 (> 60); eGFR For Non-African Americans > 60 (> 60)
[2019-07-13] MEDS ORDERED: Azithromycin 250 MG TABLET PO ONE (07:53)
[2019-07-13] MEDS: Aspirin 81 MG TAB.CHEW PO SCH (08:18)
[2019-07-13] MEDS: Lactobacillus 1 EACH CAP.SPRINK PO SCH (08:18)
[2019-07-13] MEDS: carvediloL 6.25 MG TABLET PO SCH ×2 (08:18→15:42)
[2019-07-13] MEDS: *HR* Enoxaparin 40 MG/0.4 ML SYRINGE SQ SCH (08:19)
[2019-07-13] MEDS: Nystatin POWDER 30 GM BOTTLE TP SCH ×2 (08:19→22:12)
[2019-07-13] MEDS: Furosemide 40 MG/4 ML VIAL IVP SCH ×2 (08:19→15:41)
[2019-07-13] MEDS: Insulin LISPRO 300 UNITS/3 ML VIAL SQ SCH ×4 (08:53→22:12)
[2019-07-13] MEDS: rOPINIRole 0.25 MG TABLET PO SCH (22:09)
[2019-07-13] MEDS: Insulin DETEMIR 100 UNIT/ML X5UNITS SQ SCH (22:09)
[2019-07-14] MEDS: Ampicillin/Sulbactam 3,000 MG in 0.9 % Sodium Chloride Mini Bag 100 ML IVPB SCH ×4 (03:57→20:58)
[2019-07-14] MEDS: Ipratropium 1 PUFF INHALER IH SCH ×4 (03:58→21:44)
[2019-07-14 04:44] LABS: Hemoglobin 11.5 g/dL (12.9-16.9); Mean Corpuscular HGB Conc 32.9 g/dL (31.6-35.5); Mean Corpuscular Hemoglobin 28.9 pg (28.0-33.3); Mean Corpuscular Volume 87.9 fL (83.0-100.0); Mean Platelet Volume 9.8 fL (9.4-12.4); Platelet Count 180 K/mcL (140-400); Red Blood Count 3.98 M/mcL (4.19-5.50); Red Cell Distribution Width 13.6 % (11.5-14.5); White Blood Count 5.2 K/mcL (4.3-11.1)
[2019-07-14 04:52] LABS: Calcium 8.7 mg/dL (8.6-10.3); Magnesium 2.2 mg/dL (1.6-2.6); Potassium 3.5 mEq/L (3.5-5.1)
[2019-07-14] MEDS ORDERED: Furosemide 40 MG/4 ML VIAL IVP SCH (07:15)
[2019-07-14] MEDS: Aspirin 81 MG TAB.CHEW PO SCH (08:22)
[2019-07-14] MEDS: carvediloL 6.25 MG TABLET PO SCH ×2 (08:22→17:13)
[2019-07-14] MEDS: Azithromycin 250 MG TABLET PO SCH (08:23)
[2019-07-14] MEDS: *HR* Enoxaparin 40 MG/0.4 ML SYRINGE SQ SCH (08:23)
[2019-07-14] MEDS: Lactobacillus 1 EACH CAP.SPRINK PO SCH (08:23)
[2019-07-14] MEDS: Nystatin POWDER 30 GM BOTTLE TP SCH ×2 (08:23→21:08)
[2019-07-14] MEDS ORDERED: Furosemide 40 MG/4 ML VIAL IVP ONE (08:32)
[2019-07-14] MEDS: Insulin LISPRO 300 UNITS/3 ML VIAL SQ SCH ×4 (09:35→20:56)
[2019-07-14 13:33] LABS: Albumin/Globulin Ratio 0.8 (1.1-2.2); Bilirubin,Direct 0.1 mg/dL (0.0-0.2); Bilirubin,Indirect 0.3 mg/dL (0.0-1.0); Bilirubin,Total 0.4 mg/dL (0.3-1.0); Globulin 3.6 g/dL (2.4-3.5); Total Protein 6.6 g/dL (6.4-8.9)
[2019-07-14] MEDS: Insulin DETEMIR 100 UNIT/ML X5UNITS SQ SCH (20:57)
[2019-07-14] MEDS: rOPINIRole 0.25 MG TABLET PO SCH (20:57)
[2019-07-15] MEDS: Ampicillin/Sulbactam 3,000 MG in 0.9 % Sodium Chloride Mini Bag 100 ML IVPB SCH ×3 (03:04→19:53)
[2019-07-15] MEDS: Ipratropium 1 PUFF INHALER IH SCH ×4 (03:11→22:24)
[2019-07-15 03:48] LABS: Hematocrit 35.5 % (37.5-50.1); Hemoglobin 11.3 g/dL (12.9-16.9); Mean Corpuscular HGB Conc 31.8 g/dL (31.6-35.5); Mean Corpuscular Hemoglobin 28.7 pg (28.0-33.3); Mean Corpuscular Volume 90.1 fL (83.0-100.0); Mean Platelet Volume 9.8 fL (9.4-12.4); Platelet Count 209 K/mcL (140-400); Red Blood Count 3.94 M/mcL (4.19-5.50); Red Cell Distribution Width 13.7 % (11.5-14.5); White Blood Count 6.7 K/mcL (4.3-11.1)
[2019-07-15 04:07] LABS: Calcium 8.7 mg/dL (8.6-10.3); Potassium 3.3 mEq/L (3.5-5.1)
[2019-07-15] MEDS: Insulin LISPRO 300 UNITS/3 ML VIAL SQ SCH ×4 (08:18→20:36)
[2019-07-15] MEDS: *HR* Dextrose 50 % in Water (Syg) 50 ML SYRINGE IVP PRN ×2 (08:19→15:46)
[2019-07-15] MEDS: Lactobacillus 1 EACH CAP.SPRINK PO SCH ×2 (08:28→11:56)
[2019-07-15] MEDS: *HR* Enoxaparin 40 MG/0.4 ML SYRINGE SQ SCH (08:29)
[2019-07-15] MEDS: Aspirin 81 MG TAB.CHEW PO SCH ×2 (08:29→11:58)
[2019-07-15] MEDS: Azithromycin 250 MG TABLET PO SCH ×2 (08:29→11:56)
[2019-07-15] MEDS: carvediloL 6.25 MG TABLET PO SCH (08:29)
[2019-07-15] MEDS: Nystatin POWDER 30 GM BOTTLE TP SCH ×2 (08:33→19:55)
[2019-07-15] MEDS ORDERED: Lidocaine 2% Syringe 100 MG/5 ML IV ONE (08:55)
[2019-07-15] MEDS ORDERED: *HR* Midazolam HCl 2 MG/2 ML VIAL IV ONE (08:55)
[2019-07-15] MEDS ORDERED: *HR* Propofol 200 MG/20 ML VIAL IVP ONE (08:55)
[2019-07-15] MEDS ORDERED: *HR* Succinylcholine 200 MG/10 ML VIAL IVP ONE (08:55)
[2019-07-15] MEDS: FentaNYL (PF) 1,000 MCG in 0.9 % Sodium Chloride 80 ML IVC SCH (10:00)
[2019-07-15 11:41] LABS: ABG Base Excess -1 mEq/L (-2 to 3); ABG HCO3 25 mEq/L (21-27); ABG Oxygen Saturation 100 % (95-98); ABG PCO2 48 mmHg (35-45); ABG PH 7.34 pH Units (7.32-7.45); ABG PO2 248 mmHg (85-104); ABG TCO2 27 mEq/L (20-26); Blood Gas Modality ASSIST CONTROL; Blood Gas VT 400 cc
[2019-07-15] MEDS: Albumin 25% 25gram/100mL 25 GM/100 ML IV.SOLN IVPB SCH ×2 (11:54→17:19)
[2019-07-15] MEDS: Famotidine 20 MG/2 ML VIAL IVP SCH (17:21)
[2019-07-15] MEDS: Artificial Tears SOLN 15 ML BOTTLE BOTH EYES SCH ×2 (17:21→19:54)
[2019-07-15] MEDS: rOPINIRole 0.25 MG TABLET PO SCH (19:54)
[2019-07-15] MEDS: Chlorhexidine Rinse 15 ML MOUTHWASH MM SCH (19:54)
[2019-07-15] MEDS: Insulin DETEMIR 100 UNIT/ML X5UNITS SQ SCH (20:36)
[2019-07-16] MEDS: FentaNYL (PF) 1,000 MCG in 0.9 % Sodium Chloride 80 ML IVC SCH ×3 (01:39→18:57)
[2019-07-16] MEDS: Artificial Tears SOLN 15 ML BOTTLE BOTH EYES SCH ×6 (01:41→21:01)
[2019-07-16] MEDS: Ipratropium 1 PUFF INHALER IH SCH ×4 (03:41→20:08)
[2019-07-16 03:51] LABS: ABG Base Excess -3 mEq/L (-2 to 3); ABG HCO3 24 mEq/L (21-27); ABG Oxygen Saturation 93 % (95-98); ABG PCO2 46 mmHg (35-45); ABG PH 7.32 pH Units (7.32-7.45); ABG PO2 73 mmHg (85-104); ABG TCO2 25 mEq/L (20-26); Blood Gas Modality ASSIST CONTROL; Blood Gas VT 400 cc
[2019-07-16] MEDS: *HR* Heparin 5,000 UNIT/ML VIAL SQ SCH ×2 (05:04→15:49)
[2019-07-16] MEDS: Famotidine 20 MG/2 ML VIAL IVP SCH (05:05)
[2019-07-16 05:48] LABS: Hematocrit 32.3 % (37.5-50.1); Hemoglobin 10.2 g/dL (12.9-16.9); Mean Corpuscular HGB Conc 31.6 g/dL (31.6-35.5); Mean Corpuscular Hemoglobin 29.1 pg (28.0-33.3); Mean Corpuscular Volume 92.3 fL (83.0-100.0); Mean Platelet Volume 9.8 fL (9.4-12.4); Platelet Count 196 K/mcL (140-400); Red Cell Distribution Width 14.3 % (11.5-14.5); White Blood Count 7.3 K/mcL (4.3-11.1)
[2019-07-16 06:08] LABS: Calcium 8.9 mg/dL (8.6-10.3); Potassium 3.8 mEq/L (3.5-5.1)
[2019-07-16] MEDS ORDERED: 0.9 % Sodium Chloride 250 ML IVC ONE (06:14)
[2019-07-16] MEDS ORDERED: Albumin 25% 25gram/100mL 25 GM/100 ML IV.SOLN IVPB ONE (08:04)
[2019-07-16] MEDS: Azithromycin 250 MG TABLET PO SCH (08:28)
[2019-07-16] MEDS: Lactobacillus 1 EACH CAP.SPRINK PO SCH (08:28)
[2019-07-16] MEDS: Chlorhexidine Rinse 15 ML MOUTHWASH MM SCH ×2 (08:29→21:01)
[2019-07-16] MEDS: Ampicillin/Sulbactam 3,000 MG in 0.9 % Sodium Chloride Mini Bag 100 ML IVPB SCH ×2 (08:29→21:03)
[2019-07-16] MEDS: Aspirin 81 MG TAB.CHEW PO SCH (08:29)
[2019-07-16] MEDS: Insulin LISPRO 300 UNITS/3 ML VIAL SQ SCH ×4 (08:57→21:54)
[2019-07-16] MEDS: Nystatin POWDER 30 GM BOTTLE TP SCH ×2 (08:59→21:02)
[2019-07-16] MEDS ORDERED: *HR* Enoxaparin 30 MG/0.3 ML SYRINGE SQ SCH (09:00)
[2019-07-16 13:44] LABS: Bilirubin,Urine Negative (Negative); Blood,Urine Negative (Negative); Clarity,Urine Turbid (Clear); Color,Urine Yellow (Yellow); Glucose,Urine (UA) Normal (Normal); Ketones,Urine Trace mg/dL (Negative); Leukocyte Esterase,Urine Moderate (Negative); Nitrite,Urine Negative (Negative); Protein,Urine 100 mg/dL (Neg-Trace); Specific Gravity,Urine 1.024 (1.010-1.025); Urobilinogen,Urine Normal (Normal)
[2019-07-16 13:46] LABS: Bacteria,Urine None Seen per hpf (None-Few); Hyaline Casts,Urine None Seen per lpf (None-Few); Squamous Epithelial Cell,Urine Few per lpf (None-Few); WBC,Urine TNTC per hpf (0-3)
[2019-07-16 13:52] LABS: Sodium, Urine 56.7 mEq/L
[2019-07-16 13:59] LABS: RBC,Urine 0-3 per hpf (0-3)
[2019-07-16 14:00] LABS: Yeast,Urine Many per hpf (None Seen)
[2019-07-16] MEDS: rOPINIRole 0.25 MG TABLET PO SCH (21:02)
[2019-07-16] MEDS: Insulin DETEMIR 100 UNIT/ML X5UNITS SQ SCH (21:55)
[2019-07-17] MEDS: Artificial Tears SOLN 15 ML BOTTLE BOTH EYES SCH ×7 (00:30→23:06)
[2019-07-17 02:45] LABS: Protein/Creatinine Ratio,Urine 2.65 mg/mg (0.00-0.20)
[2019-07-17] MEDS: Ipratropium 1 PUFF INHALER IH SCH ×4 (04:03→22:07)
[2019-07-17 04:18] LABS: ABG Base Excess -5 mEq/L (-2 to 3); ABG HCO3 23 mEq/L (21-27); ABG Oxygen Saturation 100 % (95-98); ABG PCO2 58 mmHg (35-45); ABG PH 7.21 pH Units (7.32-7.45); ABG PO2 267 mmHg (85-104); ABG TCO2 25 mEq/L (20-26); Blood Gas Modality ASSIST CONTROL; Blood Gas VT 400 cc
[2019-07-17] MEDS: *HR* Heparin 5,000 UNIT/ML VIAL SQ SCH ×2 (05:29→18:15)
[2019-07-17 05:55] LABS: Basophils % 0.3 %; Eosinophils # 0.3 K/mcL (0.0-0.6); Eosinophils % 2.7 %; Hematocrit 31.6 % (37.5-50.1); Hemoglobin 9.8 g/dL (12.9-16.9); Immature Granulocytes % 1.2 % (0-4); Lymphocytes # 1.1 K/mcL (0.6-4.6); Lymphocytes % 11.5 %; Mean Corpuscular Hemoglobin 29.3 pg (28.0-33.3); Mean Corpuscular Volume 94.3 fL (83.0-100.0); Mean Platelet Volume 9.9 fL (9.4-12.4); Monocytes # 0.3 K/mcL (0.0-1.3); Monocytes % 3.2 %; Neutrophils # 7.8 K/mcL (1.6-8.9); Platelet Count 193 K/mcL (140-400); Red Blood Count 3.35 M/mcL (4.19-5.50); Red Cell Distribution Width 14.8 % (11.5-14.5); Segmented Neutrophils % 81.1 %; White Blood Count 9.6 K/mcL (4.3-11.1)
[2019-07-17 06:31] LABS: Platelet Estimate Normal (Normal)
[2019-07-17 06:46] LABS: Calcium 8.8 mg/dL (8.6-10.3)
[2019-07-17] MEDS: Insulin LISPRO 300 UNITS/3 ML VIAL SQ SCH ×4 (07:56→23:06)
[2019-07-17] MEDS: Azithromycin 250 MG TABLET PO SCH (07:57)
[2019-07-17] MEDS: Famotidine 20 MG/2 ML VIAL IVP SCH (07:57)
[2019-07-17] MEDS: Aspirin 81 MG TAB.CHEW PO SCH (07:57)
[2019-07-17] MEDS: Lactobacillus 1 EACH CAP.SPRINK PO SCH (07:58)
[2019-07-17] MEDS: Chlorhexidine Rinse 15 ML MOUTHWASH MM SCH ×2 (07:58→20:32)
[2019-07-17] MEDS: Ampicillin/Sulbactam 3,000 MG in 0.9 % Sodium Chloride Mini Bag 100 ML IVPB SCH (08:04)
[2019-07-17] MEDS: Nystatin POWDER 30 GM BOTTLE TP SCH ×2 (08:17→20:32)
[2019-07-17 11:07] LABS: INR 1.3
[2019-07-17 11:10] LABS: Activated Partial Thrombo Time 37.4 Seconds (26.0-36.0)
[2019-07-17] MEDS ORDERED: *HR* Alteplase (Cathflo) 2 MG VIAL IVP PRN (11:41)
[2019-07-17] MEDS ORDERED: *HR* Heparin 5,000 UNIT/ML VIAL ONE (13:31)
[2019-07-17] MEDS: 0.9 % Sodium Chloride 1,000 ML PRIME SCH (15:20)
[2019-07-17] MEDS: PrismaSATE BGK 4/2.5 5,000 ML CRRT SCH ×4 (15:21→20:35)
[2019-07-17] MEDS: Norepinephrine 4 MG in 0.9 % Sodium Chloride 250 ML IVC SCH (16:53)
[2019-07-17] MEDS: Cisatracurium 200 MG in 0.9 % Sodium Chloride 180 ML IVC SCH (17:09)
[2019-07-17] MEDS: Piperacillin/Tazobactam 3.375 GM in 0.9 % Sodium Chloride Mini Bag 100 ML IVPB SCH (20:31)
[2019-07-17] MEDS: Insulin DETEMIR 100 UNIT/ML X5UNITS SQ SCH (20:32)
[2019-07-17] MEDS: rOPINIRole 0.25 MG TABLET PO SCH (20:33)
[2019-07-17 22:05] LABS: ABG Base Excess -4 mEq/L (-2 to 3); ABG HCO3 25 mEq/L (21-27); ABG Oxygen Saturation 99 % (95-98); ABG PCO2 67 mmHg (35-45); ABG PH 7.18 pH Units (7.32-7.45); ABG PO2 176 mmHg (85-104); ABG TCO2 27 mEq/L (20-26); Blood Gas Modality AF; Blood Gas VT 400 cc
[2019-07-18] MEDS: PrismaSATE BGK 4/2.5 5,000 ML CRRT SCH ×8 (01:35→16:38)
[2019-07-18] MEDS: Artificial Tears SOLN 15 ML BOTTLE BOTH EYES SCH ×6 (03:09→23:54)
[2019-07-18] MEDS: Ipratropium 1 PUFF INHALER IH SCH ×4 (03:10→21:47)
[2019-07-18 04:25] LABS: Basophils % 0.2 %; Eosinophils # 0.2 K/mcL (0.0-0.6); Eosinophils % 2.4 %; Hematocrit 30.8 % (37.5-50.1); Hemoglobin 9.6 g/dL (12.9-16.9); Lymphocytes # 0.6 K/mcL (0.6-4.6); Mean Corpuscular HGB Conc 31.2 g/dL (31.6-35.5); Mean Corpuscular Volume 93.1 fL (83.0-100.0); Monocytes # 0.3 K/mcL (0.0-1.3); Monocytes % 4.1 %; Neutrophils # 7.2 K/mcL (1.6-8.9); Platelet Count 179 K/mcL (140-400); Red Blood Count 3.31 M/mcL (4.19-5.50); Red Cell Distribution Width 14.8 % (11.5-14.5); Segmented Neutrophils % 85.3 %; White Blood Count 8.4 K/mcL (4.3-11.1)
[2019-07-18 04:41] LABS: Albumin 3.1 g/dL (3.5-5.7); Albumin/Globulin Ratio 0.9 (1.1-2.2); Bilirubin,Direct 0.3 mg/dL (0.0-0.2); Bilirubin,Indirect 0.2 mg/dL (0.0-1.0); Bilirubin,Total 0.5 mg/dL (0.3-1.0); Calcium 8.4 mg/dL (8.6-10.3); Globulin 3.4 g/dL (2.4-3.5); Magnesium 2.3 mg/dL (1.6-2.6); Phosphorous 3.3 mg/dL (2.7-4.5); Potassium 4.3 mEq/L (3.5-5.1); Total Protein 6.5 g/dL (6.4-8.9)
[2019-07-18 04:43] LABS: ABG Base Excess 0 mEq/L (-2 to 3); ABG HCO3 26 mEq/L (21-27); ABG Oxygen Saturation 97 % (95-98); ABG PCO2 49 mmHg (35-45); ABG PH 7.33 pH Units (7.32-7.45); ABG PO2 95 mmHg (85-104); ABG TCO2 28 mEq/L (20-26); Blood Gas VT 400 cc
[2019-07-18] MEDS: Insulin LISPRO 300 UNITS/3 ML VIAL SQ SCH ×4 (05:03→23:54)
[2019-07-18] MEDS: *HR* Heparin 5,000 UNIT/ML VIAL SQ SCH ×2 (05:04→18:35)
[2019-07-18 05:22] LABS: Platelet Estimate Normal (Normal)
[2019-07-18] MEDS: *HR* Heparin 5,000 UNIT/ML VIAL CRRT PRN ×2 (06:28→18:15)
[2019-07-18] MEDS: 0.9 % Sodium Chloride 1,000 ML PRIME SCH ×2 (06:29→18:14)
[2019-07-18] MEDS: Lactobacillus 1 EACH CAP.SPRINK PO SCH (08:13)
[2019-07-18] MEDS: Famotidine 20 MG/2 ML VIAL IVP SCH (08:13)
[2019-07-18] MEDS: Aspirin 81 MG TAB.CHEW PO SCH (08:13)
[2019-07-18] MEDS: Piperacillin/Tazobactam 3.375 GM in 0.9 % Sodium Chloride Mini Bag 100 ML IVPB SCH ×2 (08:13→20:20)
[2019-07-18] MEDS: Nystatin POWDER 30 GM BOTTLE TP SCH ×2 (08:14→20:21)
[2019-07-18] MEDS: Chlorhexidine Rinse 15 ML MOUTHWASH MM SCH ×2 (08:52→20:20)
[2019-07-18 09:12] LABS: C-Reactive Protein 260 mg/L (Less than 10); Ferritin 1102 ng/mL (20-250)
[2019-07-18] MEDS: Cisatracurium 200 MG in 0.9 % Sodium Chloride 180 ML IVC SCH (10:53)
[2019-07-18] MEDS: Norepinephrine 4 MG in 0.9 % Sodium Chloride 250 ML IVC SCH (14:05)
[2019-07-18] MEDS ORDERED: 0.9 % Sodium Chloride 1,000 ML ONE (17:23)
[2019-07-18] MEDS ORDERED: *HR* Atropine Sulfate 1 MG/10 ML SYRINGE ONE (17:32)
[2019-07-18] MEDS ORDERED: *HR* Heparin 5,000 UNIT/ML VIAL ONE (17:35)
[2019-07-18] MEDS: Insulin DETEMIR 100 UNIT/ML X5UNITS SQ SCH (20:20)
[2019-07-18] MEDS: rOPINIRole 0.25 MG TABLET PO SCH (20:21)
[2019-07-19] MEDS: Ipratropium 1 PUFF INHALER IH SCH ×4 (03:21→21:43)
[2019-07-19] MEDS: Artificial Tears SOLN 15 ML BOTTLE BOTH EYES SCH ×5 (03:47→20:44)
[2019-07-19 04:23] LABS: Basophils % 0.2 %; Eosinophils # 0.2 K/mcL (0.0-0.6); Eosinophils % 3.6 %; Hematocrit 28.7 % (37.5-50.1); Hemoglobin 9.1 g/dL (12.9-16.9); Immature Granulocytes % 0.9 % (0-4); Lymphocytes % 15.8 %; Mean Corpuscular HGB Conc 31.7 g/dL (31.6-35.5); Mean Corpuscular Volume 91.4 fL (83.0-100.0); Mean Platelet Volume 10.2 fL (9.4-12.4); Monocytes # 0.3 K/mcL (0.0-1.3); Monocytes % 5.2 %; Neutrophils # 4.7 K/mcL (1.6-8.9); Platelet Count 207 K/mcL (140-400); Red Blood Count 3.14 M/mcL (4.19-5.50); Red Cell Distribution Width 14.7 % (11.5-14.5); Segmented Neutrophils % 74.3 %; White Blood Count 6.3 K/mcL (4.3-11.1)
[2019-07-19 04:31] LABS: ABG Base Excess 0 mEq/L (-2 to 3); ABG HCO3 25 mEq/L (21-27); ABG Oxygen Saturation 92 % (95-98); ABG PCO2 43 mmHg (35-45); ABG PH 7.38 pH Units (7.32-7.45); ABG PO2 65 mmHg (85-104); ABG TCO2 26 mEq/L (20-26); Blood Gas Modality ASSIST CONTROL; Blood Gas VT 400 cc
[2019-07-19 04:45] LABS: Albumin 2.9 g/dL (3.5-5.7); Albumin/Globulin Ratio 0.9 (1.1-2.2); Bilirubin,Total 0.4 mg/dL (0.3-1.0); Calcium 8.2 mg/dL (8.6-10.3); Globulin 3.3 g/dL (2.4-3.5); Magnesium 2.8 mg/dL (1.6-2.6); Phosphorous 2.5 mg/dL (2.7-4.5); Total Protein 6.2 g/dL (6.4-8.9)
[2019-07-19 04:51] LABS: Platelet Estimate Normal (Normal)
[2019-07-19] MEDS: *HR* Heparin 5,000 UNIT/ML VIAL SQ SCH ×2 (05:31→18:47)
[2019-07-19] MEDS: Insulin LISPRO 300 UNITS/3 ML VIAL SQ SCH ×3 (05:38→16:17)
[2019-07-19] MEDS: Chlorhexidine Rinse 15 ML MOUTHWASH MM SCH ×2 (07:51→20:42)
[2019-07-19] MEDS: Famotidine 20 MG/2 ML VIAL IVP SCH (07:51)
[2019-07-19] MEDS: Aspirin 81 MG TAB.CHEW PO SCH (07:52)
[2019-07-19] MEDS: Piperacillin/Tazobactam 3.375 GM in 0.9 % Sodium Chloride Mini Bag 100 ML IVPB SCH ×2 (07:52→20:41)
[2019-07-19] MEDS: Lactobacillus 1 EACH CAP.SPRINK PO SCH (07:54)
[2019-07-19] MEDS: Insulin DETEMIR 100 UNIT/ML X5UNITS SQ SCH ×2 (07:55→21:55)
[2019-07-19] MEDS: Nystatin POWDER 30 GM BOTTLE TP SCH ×2 (07:56→20:44)
[2019-07-19] MEDS: Artificial Tears SOLN 15 ML BOTTLE BOTH EYES PRN (11:46)
[2019-07-19] MEDS: Norepinephrine 4 MG in 0.9 % Sodium Chloride 250 ML IVC SCH (15:14)
[2019-07-20] MEDS: Insulin LISPRO 300 UNITS/3 ML VIAL SQ SCH ×4 (00:13→18:11)
[2019-07-20] MEDS: Artificial Tears SOLN 15 ML BOTTLE BOTH EYES SCH ×6 (00:14→21:08)
[2019-07-20] MEDS: Ipratropium 1 PUFF INHALER IH SCH ×4 (04:09→22:34)
[2019-07-20 04:46] LABS: ABG Base Excess -1 mEq/L (-2 to 3); ABG HCO3 26 mEq/L (21-27); ABG Oxygen Saturation 90 % (95-98); ABG PCO2 50 mmHg (35-45); ABG PH 7.32 pH Units (7.32-7.45); ABG PO2 64 mmHg (85-104); ABG TCO2 27 mEq/L (20-26); Blood Gas VT 400 cc
[2019-07-20] MEDS: *HR* Heparin 5,000 UNIT/ML VIAL SQ SCH ×2 (05:03→17:58)
[2019-07-20 05:07] LABS: Basophils % 0.3 %; Eosinophils # 0.2 K/mcL (0.0-0.6); Eosinophils % 2.8 %; Hematocrit 29.7 % (37.5-50.1); Hemoglobin 9.2 g/dL (12.9-16.9); Lymphocytes # 0.9 K/mcL (0.6-4.6); Lymphocytes % 15.4 %; Mean Corpuscular Hemoglobin 28.6 pg (28.0-33.3); Mean Corpuscular Volume 92.2 fL (83.0-100.0); Mean Platelet Volume 10.2 fL (9.4-12.4); Monocytes # 0.4 K/mcL (0.0-1.3); Monocytes % 7.1 %; Platelet Count 230 K/mcL (140-400); Red Blood Count 3.22 M/mcL (4.19-5.50); Red Cell Distribution Width 14.8 % (11.5-14.5); Segmented Neutrophils % 72.4 %
[2019-07-20 05:12] LABS: Neutrophils # 4.3 K/mcL (1.6-8.9)
[2019-07-20 05:27] LABS: Albumin 2.9 g/dL (3.5-5.7); Albumin/Globulin Ratio 0.8 (1.1-2.2); Bilirubin,Total 0.4 mg/dL (0.3-1.0); Calcium 8.2 mg/dL (8.6-10.3); Globulin 3.7 g/dL (2.4-3.5); Phosphorous 3.8 mg/dL (2.7-4.5); Potassium 4.4 mEq/L (3.5-5.1); Total Protein 6.6 g/dL (6.4-8.9)
[2019-07-20 05:36] LABS: Platelet Estimate Normal (Normal)
[2019-07-20] MEDS: Famotidine 20 MG/2 ML VIAL IVP SCH (08:38)
[2019-07-20] MEDS: Aspirin 81 MG TAB.CHEW PO SCH (08:38)
[2019-07-20] MEDS: Chlorhexidine Rinse 15 ML MOUTHWASH MM SCH ×2 (08:38→21:07)
[2019-07-20] MEDS: Piperacillin/Tazobactam 3.375 GM in 0.9 % Sodium Chloride Mini Bag 100 ML IVPB SCH ×2 (08:38→21:06)
[2019-07-20] MEDS: Lactobacillus 1 EACH CAP.SPRINK PO SCH (08:38)
[2019-07-20] MEDS: Nystatin POWDER 30 GM BOTTLE TP SCH ×2 (09:04→21:08)
[2019-07-20] MEDS: Insulin DETEMIR 100 UNIT/ML X5UNITS SQ SCH ×2 (09:04→21:15)
[2019-07-20] MEDS: Norepinephrine 4 MG in 0.9 % Sodium Chloride 250 ML IVC SCH (11:18)
[2019-07-20] MEDS: Sennosides/Docusate Sodium TABLET PO SCH ×2 (17:58→21:08)
[2019-07-21] MEDS: Insulin LISPRO 300 UNITS/3 ML VIAL SQ SCH ×5 (01:25→22:43)
[2019-07-21] MEDS: Artificial Tears SOLN 15 ML BOTTLE BOTH EYES SCH ×7 (01:27→22:43)
[2019-07-21] MEDS: Ipratropium 1 PUFF INHALER IH SCH ×4 (03:39→21:37)
[2019-07-21] MEDS: *HR* Heparin 5,000 UNIT/ML VIAL SQ SCH ×2 (05:06→18:15)
[2019-07-21 05:07] LABS: ABG Base Excess 0 mEq/L (-2 to 3); ABG HCO3 26 mEq/L (21-27); ABG Oxygen Saturation 94 % (95-98); ABG PCO2 50 mmHg (35-45); ABG PH 7.33 pH Units (7.32-7.45); ABG PO2 79 mmHg (85-104); ABG TCO2 28 mEq/L (20-26); Blood Gas Modality AF; Blood Gas VT 430 cc
[2019-07-21 05:19] LABS: VBG Ionized Calcium 1.09 mmol/L (1.15-1.35)
[2019-07-21 05:24] LABS: Basophils % 0.5 %; Eosinophils # 0.1 K/mcL (0.0-0.6); Eosinophils % 2.4 %; Hematocrit 30.9 % (37.5-50.1); Hemoglobin 9.1 g/dL (12.9-16.9); Immature Granulocytes % 2.9 % (0-4); Lymphocytes # 0.8 K/mcL (0.6-4.6); Mean Corpuscular HGB Conc 29.4 g/dL (31.6-35.5); Mean Corpuscular Volume 95.1 fL (83.0-100.0); Mean Platelet Volume 10.3 fL (9.4-12.4); Monocytes # 0.4 K/mcL (0.0-1.3); Monocytes % 7.4 %; Neutrophils # 4.3 K/mcL (1.6-8.9); Nucleated Red Blood Cells 0.3 /100 WBC (0); Platelet Count 255 K/mcL (140-400); Red Blood Count 3.25 M/mcL (4.19-5.50); Red Cell Distribution Width 14.9 % (11.5-14.5); Segmented Neutrophils % 72.8 %; White Blood Count 5.9 K/mcL (4.3-11.1)
[2019-07-21 05:40] LABS: Albumin 2.8 g/dL (3.5-5.7); Albumin/Globulin Ratio 0.7 (1.1-2.2); Bilirubin,Total 0.3 mg/dL (0.3-1.0); Calcium 8.5 mg/dL (8.6-10.3); Globulin 3.9 g/dL (2.4-3.5); Magnesium 3.2 mg/dL (1.6-2.6); Phosphorous 4.9 mg/dL (2.7-4.5); Potassium 4.4 mEq/L (3.5-5.1); Total Protein 6.7 g/dL (6.4-8.9)
[2019-07-21] MEDS: Piperacillin/Tazobactam 3.375 GM in 0.9 % Sodium Chloride Mini Bag 100 ML IVPB SCH ×2 (08:25→19:43)
[2019-07-21] MEDS: Insulin DETEMIR 100 UNIT/ML X5UNITS SQ SCH ×2 (08:27→19:45)
[2019-07-21] MEDS: Famotidine 20 MG/2 ML VIAL IVP SCH (08:27)
[2019-07-21] MEDS: Aspirin 81 MG TAB.CHEW PO SCH (08:27)
[2019-07-21] MEDS: Lactobacillus 1 EACH CAP.SPRINK PO SCH (08:27)
[2019-07-21] MEDS: Sennosides/Docusate Sodium TABLET PO SCH ×2 (08:27→19:45)
[2019-07-21] MEDS: Chlorhexidine Rinse 15 ML MOUTHWASH MM SCH ×2 (08:27→19:44)
[2019-07-21] MEDS: Nystatin POWDER 30 GM BOTTLE TP SCH ×2 (08:28→19:45)
[2019-07-21] MEDS ORDERED: 0.9 % Sodium Chloride 250 ML IVC PRN (09:31)
[2019-07-21] MEDS ORDERED: 0.9 % Sodium Chloride 1,000 ML PRIME SCH (09:45)
[2019-07-21] MEDS ORDERED: Furosemide 80 MG in 0.9 % Sodium Chloride 50 ML IVPB ONE (10:21)
[2019-07-21] MEDS ORDERED: 0.9 % Sodium Chloride 500 ML ONE (11:10)
[2019-07-21] MEDS ORDERED: Vancomycin 500 MG in 0.9 % Sodium Chloride Mini Bag 100 ML IVPB ONE (13:01)
[2019-07-21] MEDS: Norepinephrine 4 MG in 0.9 % Sodium Chloride 250 ML IVC SCH (14:11)
[2019-07-21 15:27] LABS: Hepatitis B Surface Antibody < 3.10 mIU/mL
[2019-07-21 15:37] LABS: Hepatitis B Surface Antigen Nonreactive (Nonreactive)
[2019-07-21] MEDS ORDERED: *HR* Heparin 10,000 UNIT/10 ML VIAL ONE (16:09)
[2019-07-21] MEDS: polyethylene glycoL 3350 17 GM POWD.PACK PO SCH (19:45)
[2019-07-22] MEDS: Ipratropium 1 PUFF INHALER IH SCH ×4 (04:11→21:32)
[2019-07-22 04:36] LABS: Basophils % 0.3 %; Eosinophils # 0.1 K/mcL (0.0-0.6); Hemoglobin 8.7 g/dL (12.9-16.9); Lymphocytes % 16.4 %; Mean Corpuscular HGB Conc 31.1 g/dL (31.6-35.5); Mean Corpuscular Hemoglobin 29.5 pg (28.0-33.3); Mean Corpuscular Volume 94.9 fL (83.0-100.0); Mean Platelet Volume 10.4 fL (9.4-12.4); Monocytes # 0.6 K/mcL (0.0-1.3); Monocytes % 9.4 %; Platelet Count 228 K/mcL (140-400); Red Blood Count 2.95 M/mcL (4.19-5.50); Red Cell Distribution Width 14.8 % (11.5-14.5); Segmented Neutrophils % 67.9 %; White Blood Count 5.9 K/mcL (4.3-11.1)
[2019-07-22 04:38] LABS: Albumin 2.6 g/dL (3.5-5.7); Albumin/Globulin Ratio 0.7 (1.1-2.2); Bilirubin,Total 0.3 mg/dL (0.3-1.0); Calcium 8.4 mg/dL (8.6-10.3); Globulin 3.9 g/dL (2.4-3.5); Magnesium 2.9 mg/dL (1.6-2.6); Phosphorous 4.5 mg/dL (2.7-4.5); Potassium 4.2 mEq/L (3.5-5.1); Total Protein 6.5 g/dL (6.4-8.9)
[2019-07-22] MEDS: Artificial Tears SOLN 15 ML BOTTLE BOTH EYES SCH ×6 (04:55→23:13)
[2019-07-22 05:01] LABS: ABG Base Excess -1 mEq/L (-2 to 3); ABG HCO3 26 mEq/L (21-27); ABG Oxygen Saturation 97 % (95-98); ABG PCO2 51 mmHg (35-45); ABG PH 7.31 pH Units (7.32-7.45); ABG PO2 100 mmHg (85-104); ABG TCO2 27 mEq/L (20-26); Blood Gas Modality ASSIST CONTROL; Blood Gas VT 430 cc
[2019-07-22] MEDS: *HR* Heparin 5,000 UNIT/ML VIAL SQ SCH ×2 (05:27→17:41)
[2019-07-22] MEDS: Insulin LISPRO 300 UNITS/3 ML VIAL SQ SCH ×4 (05:27→23:12)
[2019-07-22] MEDS: polyethylene glycoL 3350 17 GM POWD.PACK PO SCH ×2 (08:03→19:35)
[2019-07-22] MEDS: Chlorhexidine Rinse 15 ML MOUTHWASH MM SCH ×2 (08:03→19:34)
[2019-07-22] MEDS: Piperacillin/Tazobactam 3.375 GM in 0.9 % Sodium Chloride Mini Bag 100 ML IVPB SCH ×2 (08:03→19:34)
[2019-07-22] MEDS: Aspirin 81 MG TAB.CHEW PO SCH (08:04)
[2019-07-22] MEDS: Sennosides/Docusate Sodium TABLET PO SCH ×2 (08:04→19:35)
[2019-07-22] MEDS: Lactobacillus 1 EACH CAP.SPRINK PO SCH (08:04)
[2019-07-22] MEDS: Famotidine 20 MG/2 ML VIAL IVP SCH (08:04)
[2019-07-22] MEDS: Nystatin POWDER 30 GM BOTTLE TP SCH ×2 (08:05→19:35)
[2019-07-22] MEDS: Insulin DETEMIR 100 UNIT/ML X5UNITS SQ SCH ×2 (08:07→19:34)
[2019-07-22] MEDS ORDERED: Aminoglycoside Consult 1 EACH MC ONE (09:57)
[2019-07-22] MEDS ORDERED: Furosemide 40 MG/4 ML VIAL IVP ONE (11:11)
[2019-07-22] MEDS: Norepinephrine 4 MG in 0.9 % Sodium Chloride 250 ML IVC SCH (12:08)
[2019-07-23] MEDS: Ipratropium 1 PUFF INHALER IH SCH ×5 (04:18→23:10)
[2019-07-23] MEDS: Artificial Tears SOLN 15 ML BOTTLE BOTH EYES SCH ×5 (04:28→20:09)
[2019-07-23 04:39] LABS: Basophils % 0.4 %; Eosinophils # 0.1 K/mcL (0.0-0.6); Eosinophils % 1.5 %; Hematocrit 30.4 % (37.5-50.1); Hemoglobin 9.1 g/dL (12.9-16.9); Immature Granulocytes % 3.9 % (0-4); Lymphocytes # 1.2 K/mcL (0.6-4.6); Lymphocytes % 15.7 %; Mean Corpuscular HGB Conc 29.9 g/dL (31.6-35.5); Mean Corpuscular Hemoglobin 28.3 pg (28.0-33.3); Mean Corpuscular Volume 94.7 fL (83.0-100.0); Mean Platelet Volume 10.2 fL (9.4-12.4); Monocytes # 0.6 K/mcL (0.0-1.3); Neutrophils # 5.3 K/mcL (1.6-8.9); Platelet Count 280 K/mcL (140-400); Red Blood Count 3.21 M/mcL (4.19-5.50); Red Cell Distribution Width 14.6 % (11.5-14.5); Segmented Neutrophils % 70.5 %; White Blood Count 7.5 K/mcL (4.3-11.1)
[2019-07-23 04:47] LABS: ABG Base Excess 0 mEq/L (-2 to 3); ABG HCO3 26 mEq/L (21-27); ABG Oxygen Saturation 90 % (95-98); ABG PCO2 50 mmHg (35-45); ABG PH 7.33 pH Units (7.32-7.45); ABG PO2 63 mmHg (85-104); ABG TCO2 28 mEq/L (20-26); Blood Gas Modality ASSIST CONTROL; Blood Gas VT 460 cc
[2019-07-23 05:00] LABS: Albumin 2.8 g/dL (3.5-5.7); Albumin/Globulin Ratio 0.7 (1.1-2.2); Bilirubin,Total 0.3 mg/dL (0.3-1.0); Calcium 8.8 mg/dL (8.6-10.3); Globulin 4.1 g/dL (2.4-3.5); Magnesium 2.9 mg/dL (1.6-2.6); Phosphorous 4.3 mg/dL (2.7-4.5); Potassium 3.7 mEq/L (3.5-5.1); Total Protein 6.9 g/dL (6.4-8.9)
[2019-07-23] MEDS: *HR* Heparin 5,000 UNIT/ML VIAL SQ SCH ×2 (05:40→18:46)
[2019-07-23] MEDS: Insulin LISPRO 300 UNITS/3 ML VIAL SQ SCH ×4 (05:43→18:48)
[2019-07-23] MEDS: Sennosides/Docusate Sodium TABLET PO SCH ×2 (07:45→19:17)
[2019-07-23] MEDS: polyethylene glycoL 3350 17 GM POWD.PACK PO SCH ×2 (08:07→19:17)
[2019-07-23] MEDS: Piperacillin/Tazobactam 3.375 GM in 0.9 % Sodium Chloride Mini Bag 100 ML IVPB SCH (08:15)
[2019-07-23] MEDS: Famotidine 20 MG/2 ML VIAL IVP SCH (08:15)
[2019-07-23] MEDS: Chlorhexidine Rinse 15 ML MOUTHWASH MM SCH ×2 (08:15→20:08)
[2019-07-23] MEDS: Lactobacillus 1 EACH CAP.SPRINK PO SCH (08:15)
[2019-07-23] MEDS: Aspirin 81 MG TAB.CHEW PO SCH (08:15)
[2019-07-23] MEDS: Insulin DETEMIR 100 UNIT/ML X5UNITS SQ SCH ×2 (08:16→20:10)
[2019-07-23] MEDS: Nystatin POWDER 30 GM BOTTLE TP SCH ×2 (08:17→20:08)
[2019-07-23] MEDS ORDERED: Furosemide 40 MG/4 ML VIAL IVP ONE (09:19)
[2019-07-23] MEDS ORDERED: Potassium Chloride Elixir 20 MEQ/15 ML UDC GTUBE ONE (09:20)
[2019-07-23] MEDS: Norepinephrine 4 MG in 0.9 % Sodium Chloride 250 ML IVC SCH (11:35)
[2019-07-23 16:03] LABS: VBG Ionized Calcium 1.14 mmol/L (1.15-1.35)
[2019-07-23] MEDS: Artificial Tears SOLN 15 ML BOTTLE BOTH EYES PRN (20:09)
[2019-07-24] MEDS: Artificial Tears SOLN 15 ML BOTTLE BOTH EYES SCH ×6 (00:26→19:25)
[2019-07-24] MEDS: Insulin LISPRO 300 UNITS/3 ML VIAL SQ SCH ×4 (00:27→19:57)
[2019-07-24] MEDS: Ipratropium 1 PUFF INHALER IH SCH ×4 (03:02→19:44)
[2019-07-24 03:41] LABS: ABG Base Excess 3 mEq/L (-2 to 3); ABG HCO3 29 mEq/L (21-27); ABG Oxygen Saturation 96 % (95-98); ABG PCO2 50 mmHg (35-45); ABG PH 7.37 pH Units (7.32-7.45); ABG PO2 89 mmHg (85-104); ABG TCO2 30 mEq/L (20-26); Blood Gas Modality ASSIST CONTROL; Blood Gas VT 480 cc
[2019-07-24 03:58] LABS: Basophils % 0.5 %; Eosinophils # 0.1 K/mcL (0.0-0.6); Eosinophils % 1.2 %; Hematocrit 29.2 % (37.5-50.1); Hemoglobin 8.9 g/dL (12.9-16.9); Immature Granulocytes % 2.4 % (0-4); Lymphocytes # 0.9 K/mcL (0.6-4.6); Lymphocytes % 10.8 %; Mean Corpuscular HGB Conc 30.5 g/dL (31.6-35.5); Mean Corpuscular Hemoglobin 28.6 pg (28.0-33.3); Mean Corpuscular Volume 93.9 fL (83.0-100.0); Mean Platelet Volume 10.6 fL (9.4-12.4); Monocytes # 0.8 K/mcL (0.0-1.3); Monocytes % 9.7 %; Neutrophils # 6.5 K/mcL (1.6-8.9); Platelet Count 284 K/mcL (140-400); Red Blood Count 3.11 M/mcL (4.19-5.50); Red Cell Distribution Width 14.6 % (11.5-14.5); Segmented Neutrophils % 75.4 %; White Blood Count 8.6 K/mcL (4.3-11.1)
[2019-07-24 04:16] LABS: Albumin 2.8 g/dL (3.5-5.7); Albumin/Globulin Ratio 0.6 (1.1-2.2); Bilirubin,Total 0.3 mg/dL (0.3-1.0); Calcium 9.1 mg/dL (8.6-10.3); Globulin 4.4 g/dL (2.4-3.5); Magnesium 2.8 mg/dL (1.6-2.6); Phosphorous 4.7 mg/dL (2.7-4.5); Total Protein 7.2 g/dL (6.4-8.9)
[2019-07-24] MEDS: *HR* Heparin 5,000 UNIT/ML VIAL SQ SCH ×2 (05:40→17:07)
[2019-07-24] MEDS: Aspirin 81 MG TAB.CHEW PO SCH (07:48)
[2019-07-24] MEDS: Chlorhexidine Rinse 15 ML MOUTHWASH MM SCH ×2 (07:48→19:25)
[2019-07-24] MEDS: Famotidine 20 MG/2 ML VIAL IVP SCH (07:48)
[2019-07-24] MEDS: Insulin DETEMIR 100 UNIT/ML X5UNITS SQ SCH ×2 (07:48→19:24)
[2019-07-24] MEDS: Lactobacillus 1 EACH CAP.SPRINK PO SCH (07:48)
[2019-07-24] MEDS: Nystatin POWDER 30 GM BOTTLE TP SCH ×2 (07:49→19:57)
[2019-07-24] MEDS: polyethylene glycoL 3350 17 GM POWD.PACK PO SCH (07:50)
[2019-07-24] MEDS: Sennosides/Docusate Sodium TABLET PO SCH (07:51)
[2019-07-24] MEDS ORDERED: Insulin LISPRO 300 UNITS/3 ML VIAL SQ SCH (08:36)
[2019-07-24] MEDS ORDERED: Sennosides/Docusate Sodium TABLET PO PRN (08:37)
[2019-07-24] MEDS ORDERED: Insulin DETEMIR 100 UNIT/ML X5UNITS SQ ONE (10:00)
[2019-07-24] MEDS ORDERED: Furosemide 40 MG in 0.9 % Sodium Chloride 50 ML IVPB ONE (10:08)
[2019-07-24] MEDS: OLANZapine 10 MG VIAL IM SCH (17:06)
[2019-07-25] MEDS: Insulin LISPRO 300 UNITS/3 ML VIAL SQ SCH ×6 (00:30→20:48)
[2019-07-25] MEDS: Artificial Tears SOLN 15 ML BOTTLE BOTH EYES PRN ×3 (00:30→08:45)
[2019-07-25] MEDS: Artificial Tears SOLN 15 ML BOTTLE BOTH EYES SCH ×6 (00:39→19:30)
[2019-07-25] MEDS: Ipratropium 1 PUFF INHALER IH SCH ×4 (03:41→19:34)
[2019-07-25 03:48] LABS: Hematocrit 28.6 % (37.5-50.1); Hemoglobin 8.8 g/dL (12.9-16.9); Mean Corpuscular HGB Conc 30.8 g/dL (31.6-35.5); Mean Corpuscular Hemoglobin 28.9 pg (28.0-33.3); Mean Corpuscular Volume 94.1 fL (83.0-100.0); Mean Platelet Volume 10.4 fL (9.4-12.4); Platelet Count 310 K/mcL (140-400); Red Blood Count 3.04 M/mcL (4.19-5.50); Red Cell Distribution Width 14.9 % (11.5-14.5); White Blood Count 8.6 K/mcL (4.3-11.1)
[2019-07-25 03:51] LABS: ABG Base Excess 4 mEq/L (-2 to 3); ABG HCO3 30 mEq/L (21-27); ABG Oxygen Saturation 97 % (95-98); ABG PCO2 50 mmHg (35-45); ABG PH 7.38 pH Units (7.32-7.45); ABG PO2 96 mmHg (85-104); ABG TCO2 31 mEq/L (20-26); Blood Gas Modality ASSIST CONTROL; Blood Gas VT 460 cc
[2019-07-25 04:09] LABS: Calcium 9.3 mg/dL (8.6-10.3); Potassium 3.5 mEq/L (3.5-5.1)
[2019-07-25] MEDS: *HR* Heparin 5,000 UNIT/ML VIAL SQ SCH ×2 (05:14→18:11)
[2019-07-25] MEDS: Chlorhexidine Rinse 15 ML MOUTHWASH MM SCH ×2 (07:43→20:47)
[2019-07-25] MEDS: Famotidine 20 MG/2 ML VIAL IVP SCH (07:43)
[2019-07-25] MEDS: Insulin DETEMIR 100 UNIT/ML X5UNITS SQ SCH ×2 (07:44→21:21)
[2019-07-25] MEDS: Nystatin POWDER 30 GM BOTTLE TP SCH ×2 (08:45→20:50)
[2019-07-25] MEDS ORDERED: Sennosides/Docusate Sodium TABLET GTUBE PRN (08:45)
[2019-07-25] MEDS: Aspirin 81 MG TAB.CHEW GTUBE SCH (08:46)
[2019-07-25] MEDS: Lactobacillus 1 EACH CAP.SPRINK GTUBE SCH (08:46)
[2019-07-25] MEDS ORDERED: Furosemide 40 MG/4 ML VIAL IVP ONE (10:10)
[2019-07-25] MEDS: Dexmedetomidine HCl 400 MCG/100 ML MLS IVC SCH ×3 (11:50→22:34)
[2019-07-25] MEDS: OLANZapine 10 MG VIAL IM SCH (16:58)
[2019-07-26] MEDS: Artificial Tears SOLN 15 ML BOTTLE BOTH EYES SCH ×6 (00:20→20:00)
[2019-07-26] MEDS: Insulin LISPRO 300 UNITS/3 ML VIAL SQ SCH ×6 (01:24→21:09)
[2019-07-26] MEDS: Ipratropium 1 PUFF INHALER IH SCH ×4 (03:55→22:28)
[2019-07-26 04:06] LABS: ABG Base Excess 4 mEq/L (-2 to 3); ABG HCO3 30 mEq/L (21-27); ABG Oxygen Saturation 94 % (95-98); ABG PCO2 47 mmHg (35-45); ABG PH 7.41 pH Units (7.32-7.45); ABG PO2 73 mmHg (85-104); ABG TCO2 31 mEq/L (20-26); Blood Gas Modality AF; Blood Gas VT 460 cc
[2019-07-26] MEDS: *HR* Heparin 5,000 UNIT/ML VIAL SQ SCH ×2 (05:06→17:18)
[2019-07-26 05:22] LABS: Basophils % 0.2 %; Eosinophils # 0.1 K/mcL (0.0-0.6); Eosinophils % 0.8 %; Hematocrit 30.3 % (37.5-50.1); Hemoglobin 8.9 g/dL (12.9-16.9); Immature Granulocytes % 1.3 % (0-4); Lymphocytes # 1.2 K/mcL (0.6-4.6); Lymphocytes % 12.5 %; Mean Corpuscular HGB Conc 29.4 g/dL (31.6-35.5); Mean Corpuscular Hemoglobin 28.3 pg (28.0-33.3); Mean Corpuscular Volume 96.2 fL (83.0-100.0); Mean Platelet Volume 10.5 fL (9.4-12.4); Monocytes # 0.6 K/mcL (0.0-1.3); Monocytes % 6.4 %; Neutrophils # 7.3 K/mcL (1.6-8.9); Platelet Count 359 K/mcL (140-400); Red Blood Count 3.15 M/mcL (4.19-5.50); Red Cell Distribution Width 14.9 % (11.5-14.5); Segmented Neutrophils % 78.8 %; White Blood Count 9.3 K/mcL (4.3-11.1)
[2019-07-26 05:40] LABS: Calcium 9.5 mg/dL (8.6-10.3); Magnesium 2.7 mg/dL (1.6-2.6); Potassium 3.6 mEq/L (3.5-5.1)
[2019-07-26] MEDS: Dexmedetomidine HCl 400 MCG/100 ML MLS IVC SCH ×2 (07:38→22:24)
[2019-07-26] MEDS: Chlorhexidine Rinse 15 ML MOUTHWASH MM SCH ×2 (07:39→20:10)
[2019-07-26] MEDS: Aspirin 81 MG TAB.CHEW GTUBE SCH (07:39)
[2019-07-26] MEDS: Famotidine 20 MG/2 ML VIAL IVP SCH (07:39)
[2019-07-26] MEDS: Lactobacillus 1 EACH CAP.SPRINK GTUBE SCH (07:42)
[2019-07-26] MEDS: Nystatin POWDER 30 GM BOTTLE TP SCH ×2 (07:43→20:10)
[2019-07-26] MEDS: Insulin DETEMIR 100 UNIT/ML X5UNITS SQ SCH ×2 (07:46→21:11)
[2019-07-26] MEDS ORDERED: Insulin DETEMIR 100 UNIT/ML X5UNITS SQ ONE (11:00)
[2019-07-26 12:47] LABS: Bilirubin,Urine Negative (Negative); Blood,Urine Small (Negative); Clarity,Urine Turbid (Clear); Color,Urine Yellow (Yellow); Glucose,Urine (UA) Normal (Normal); Ketones,Urine Negative (Negative); Leukocyte Esterase,Urine Large (Negative); Nitrite,Urine Negative (Negative); PH,Urine 5.5 pH Units (5.0-8.0); Protein,Urine 30 mg/dL (Neg-Trace); Urobilinogen,Urine Normal (Normal)
[2019-07-26 12:48] LABS: Bacteria,Urine None Seen per hpf (None-Few); Hyaline Casts,Urine Few per lpf (None-Few); Squamous Epithelial Cell,Urine Many per lpf (None-Few); WBC,Urine TNTC per hpf (0-3)
[2019-07-26 13:32] LABS: Yeast,Urine Many per hpf (None Seen)
[2019-07-26] MEDS ORDERED: Insulin DETEMIR 100 UNIT/ML X5UNITS SQ SCH (21:00)
[2019-07-27] MEDS: Artificial Tears SOLN 15 ML BOTTLE BOTH EYES SCH ×6 (00:30→20:33)
[2019-07-27] MEDS: Insulin LISPRO 300 UNITS/3 ML VIAL SQ SCH ×6 (00:30→21:00)
[2019-07-27] MEDS: Ipratropium 1 PUFF INHALER IH SCH ×4 (04:03→21:20)
[2019-07-27 04:20] LABS: ABG Base Excess 7 mEq/L (-2 to 3); ABG HCO3 33 mEq/L (21-27); ABG Oxygen Saturation 96 % (95-98); ABG PCO2 52 mmHg (35-45); ABG PH 7.41 pH Units (7.32-7.45); ABG PO2 86 mmHg (85-104); ABG TCO2 34 mEq/L (20-26); Blood Gas Modality AF; Blood Gas VT 460 cc
[2019-07-27 05:16] LABS: Calcium 9.8 mg/dL (8.6-10.3); Magnesium 2.6 mg/dL (1.6-2.6); Phosphorous 4.3 mg/dL (2.7-4.5); Potassium 3.8 mEq/L (3.5-5.1)
[2019-07-27 05:21] LABS: Mean Corpuscular Hemoglobin 28.6 pg (28.0-33.3); Mean Corpuscular Volume 95.2 fL (83.0-100.0); Mean Platelet Volume 11.1 fL (9.4-12.4); Platelet Count 344 K/mcL (140-400); Red Blood Count 3.15 M/mcL (4.19-5.50); Red Cell Distribution Width 14.9 % (11.5-14.5); White Blood Count 8.8 K/mcL (4.3-11.1)
[2019-07-27] MEDS: *HR* Heparin 5,000 UNIT/ML VIAL SQ SCH (06:49)
[2019-07-27] MEDS: Aspirin 81 MG TAB.CHEW GTUBE SCH (08:54)
[2019-07-27] MEDS: Chlorhexidine Rinse 15 ML MOUTHWASH MM SCH ×2 (08:54→20:33)
[2019-07-27] MEDS: Lactobacillus 1 EACH CAP.SPRINK GTUBE SCH (08:54)
[2019-07-27] MEDS: Famotidine 20 MG/2 ML VIAL IVP SCH (08:55)
[2019-07-27] MEDS: Dexmedetomidine HCl 400 MCG/100 ML MLS IVC SCH ×2 (08:57→18:32)
[2019-07-27] MEDS: Insulin DETEMIR 100 UNIT/ML X5UNITS SQ SCH ×2 (08:58→21:05)
[2019-07-27] MEDS: Nystatin POWDER 30 GM BOTTLE TP SCH ×2 (08:59→20:59)
[2019-07-27] MEDS ORDERED: Haloperidol Lactate 5 MG/ML VIAL IVP SCH (09:00)
[2019-07-27] MEDS: cefTRIAXone 1,000 MG in Water for inj. (sterile) 10 ML IVP SCH (12:07)
[2019-07-27] MEDS: Haloperidol Lactate 5 MG/ML VIAL IM SCH (15:30)
[2019-07-27] MEDS: *HR* Enoxaparin 100 MG/ML SYRINGE SQ SCH (18:31)
[2019-07-28] MEDS: Haloperidol Lactate 5 MG/ML VIAL IM SCH ×3 (01:07→12:49)
[2019-07-28] MEDS: Artificial Tears SOLN 15 ML BOTTLE BOTH EYES SCH ×7 (01:11→23:23)
[2019-07-28] MEDS: Insulin LISPRO 300 UNITS/3 ML VIAL SQ SCH ×7 (01:11→23:30)
[2019-07-28] MEDS: Dexmedetomidine HCl 400 MCG/100 ML MLS IVC SCH ×4 (02:04→23:22)
[2019-07-28] MEDS: Ipratropium 1 PUFF INHALER IH SCH ×4 (03:33→22:10)
[2019-07-28] MEDS ORDERED: Albumin 25% 25gram/100mL 25 GM/100 ML IV.SOLN IVPB ONE (04:00)
[2019-07-28 04:31] LABS: Hematocrit 30.8 % (37.5-50.1); Hemoglobin 9.2 g/dL (12.9-16.9); Mean Corpuscular HGB Conc 29.9 g/dL (31.6-35.5); Mean Corpuscular Hemoglobin 28.7 pg (28.0-33.3); Mean Platelet Volume 10.5 fL (9.4-12.4); Platelet Count 409 K/mcL (140-400); Red Blood Count 3.21 M/mcL (4.19-5.50); Red Cell Distribution Width 14.8 % (11.5-14.5); White Blood Count 9.6 K/mcL (4.3-11.1)
[2019-07-28 04:55] LABS: Alanine Aminotransferase 35 Units/L (7-52); Albumin 2.9 g/dL (3.5-5.7); Albumin/Globulin Ratio 0.6 (1.1-2.2); Alkaline Phosphatase 103 Units/L (34-104); Aspartate Amino Transferase 37 Units/L (13-39); BUN/Creatinine Ratio 68 (6-26); Bilirubin,Total 0.2 mg/dL (0.3-1.0); Blood Urea Nitrogen 91 mg/dL (8-23); C-Reactive Protein 45 mg/L (Less than 10); Calcium 9.6 mg/dL (8.6-10.3); Carbon Dioxide 30 mEq/L (23-29); Chloride 113 mEq/L (98-107); Globulin 4.7 g/dL (2.4-3.5); Glucose 132 mg/dL (70-105); Lactate Dehydrogenase 157 Units/L (140-271); Magnesium 2.7 mg/dL (1.6-2.6); Osmolality,Calculated 342 (280-300); Phosphorous 4.2 mg/dL (2.7-4.5); Potassium 4.1 mEq/L (3.5-5.1); Sodium 151 mEq/L (136-145); Total Protein 7.6 g/dL (6.4-8.9); eGFR For African Americans > 60 (> 60); eGFR For Non-African Americans 52 (> 60)
[2019-07-28 05:11] LABS: Ferritin 513 ng/mL (20-250)
[2019-07-28] MEDS: *HR* Enoxaparin 100 MG/ML SYRINGE SQ SCH ×2 (05:22→18:24)
[2019-07-28 06:05] LABS: ABG Base Excess 9 mEq/L (-2 to 3); ABG HCO3 34 mEq/L (21-27); ABG Oxygen Saturation 97 % (95-98); ABG PCO2 48 mmHg (35-45); ABG PH 7.46 pH Units (7.32-7.45); ABG PO2 86 mmHg (85-104); ABG TCO2 36 mEq/L (20-26)
[2019-07-28] MEDS: Chlorhexidine Rinse 15 ML MOUTHWASH MM SCH ×2 (08:20→20:47)
[2019-07-28] MEDS: cefTRIAXone 1,000 MG in Water for inj. (sterile) 10 ML IVP SCH (08:20)
[2019-07-28] MEDS: Aspirin 81 MG TAB.CHEW GTUBE SCH (08:21)
[2019-07-28] MEDS: Insulin DETEMIR 100 UNIT/ML X5UNITS SQ SCH ×3 (08:21→20:55)
[2019-07-28] MEDS: Famotidine 20 MG/2 ML VIAL IVP SCH (08:21)
[2019-07-28] MEDS: Lactobacillus 1 EACH CAP.SPRINK GTUBE SCH (08:21)
[2019-07-28] MEDS: Nystatin POWDER 30 GM BOTTLE TP SCH ×2 (08:22→20:56)
[2019-07-28] MEDS ORDERED: D5% in Water 1,000 ML IVC SCH (09:15)
[2019-07-28] MEDS: D5% in Water 1,000 ML IVC SCH ×2 (13:17→22:29)
[2019-07-28] MEDS ORDERED: Haloperidol Lactate 5 MG/ML VIAL IM SCH (16:00)
[2019-07-28] MEDS: Haloperidol Oral Conc 10 MG/5 ML UDC GTUBE SCH ×2 (18:24→23:24)
[2019-07-28 19:17] LABS: BUN/Creatinine Ratio 69 (6-26); Blood Urea Nitrogen 91 mg/dL (8-23); Calcium 9.5 mg/dL (8.6-10.3); Carbon Dioxide 30 mEq/L (23-29); Chloride 110 mEq/L (98-107); Glucose 251 mg/dL (70-105); Osmolality,Calculated 340 (280-300); Potassium 3.9 mEq/L (3.5-5.1); Sodium 147 mEq/L (136-145); eGFR For African Americans > 60 (> 60); eGFR For Non-African Americans 53 (> 60)
[2019-07-29] MEDS ORDERED: *HR* HYDROmorphone (PF) 1 MG/ML SYRINGE IVP ONE ×2 (01:37→23:31)
[2019-07-29] MEDS: Dexmedetomidine HCl 400 MCG/100 ML MLS IVC SCH ×2 (02:10→18:48)
[2019-07-29] MEDS: Artificial Tears SOLN 15 ML BOTTLE BOTH EYES SCH ×6 (03:06→23:26)
[2019-07-29] MEDS: Insulin LISPRO 300 UNITS/3 ML VIAL SQ SCH ×6 (03:12→23:52)
[2019-07-29] MEDS: Ipratropium 1 PUFF INHALER IH SCH ×4 (04:06→21:30)
[2019-07-29 04:08] LABS: Basophils # 0.1 K/mcL (0.0-0.2); Basophils % 0.5 %; Eosinophils # 0.2 K/mcL (0.0-0.6); Eosinophils % 1.8 %; Hematocrit 29.1 % (37.5-50.1); Hemoglobin 8.5 g/dL (12.9-16.9); Immature Granulocytes % 0.5 % (0-4); Lymphocytes # 1.4 K/mcL (0.6-4.6); Lymphocytes % 13.5 %; Mean Corpuscular HGB Conc 29.2 g/dL (31.6-35.5); Mean Corpuscular Hemoglobin 28.4 pg (28.0-33.3); Mean Corpuscular Volume 97.3 fL (83.0-100.0); Mean Platelet Volume 10.7 fL (9.4-12.4); Monocytes # 0.8 K/mcL (0.0-1.3); Monocytes % 7.5 %; Neutrophils # 7.7 K/mcL (1.6-8.9); Platelet Count 434 K/mcL (140-400); Red Blood Count 2.99 M/mcL (4.19-5.50); Red Cell Distribution Width 14.7 % (11.5-14.5); Segmented Neutrophils % 76.2 %; White Blood Count 10.1 K/mcL (4.3-11.1)
[2019-07-29 04:19] LABS: ABG Base Excess 6 mEq/L (-2 to 3); ABG HCO3 31 mEq/L (21-27); ABG Oxygen Saturation 99 % (95-98); ABG PCO2 49 mmHg (35-45); ABG PH 7.41 pH Units (7.32-7.45); ABG PO2 117 mmHg (85-104); ABG TCO2 32 mEq/L (20-26); Blood Gas Modality ASSIST CONTROL; Blood Gas VT 400 cc
[2019-07-29 04:31] LABS: BUN/Creatinine Ratio 67 (6-26); Blood Urea Nitrogen 84 mg/dL (8-23); Calcium 9.5 mg/dL (8.6-10.3); Carbon Dioxide 30 mEq/L (23-29); Chloride 110 mEq/L (98-107); Glucose 207 mg/dL (70-105); Magnesium 2.6 mg/dL (1.6-2.6); Osmolality,Calculated 334 (280-300); Phosphorous 3.5 mg/dL (2.7-4.5); Potassium 3.7 mEq/L (3.5-5.1); Sodium 146 mEq/L (136-145); eGFR For African Americans > 60 (> 60); eGFR For Non-African Americans 56 (> 60)
[2019-07-29] MEDS: *HR* Enoxaparin 100 MG/ML SYRINGE SQ SCH (05:31)
[2019-07-29] MEDS: Famotidine 20 MG/2 ML VIAL IVP SCH (08:12)
[2019-07-29] MEDS: Aspirin 81 MG TAB.CHEW GTUBE SCH (08:12)
[2019-07-29] MEDS: Lactobacillus 1 EACH CAP.SPRINK GTUBE SCH (08:12)
[2019-07-29] MEDS: cefTRIAXone 1,000 MG in Water for inj. (sterile) 10 ML IVP SCH (08:12)
[2019-07-29] MEDS: Chlorhexidine Rinse 15 ML MOUTHWASH MM SCH ×2 (08:12→19:27)
[2019-07-29] MEDS: D5% in Water 1,000 ML IVC SCH ×2 (08:12→17:25)
[2019-07-29] MEDS: Haloperidol Oral Conc 10 MG/5 ML UDC GTUBE SCH ×3 (08:13→23:55)
[2019-07-29] MEDS: Nystatin POWDER 30 GM BOTTLE TP SCH ×2 (08:14→19:59)
[2019-07-29] MEDS: Insulin DETEMIR 100 UNIT/ML X5UNITS SQ SCH ×2 (08:14→19:27)
[2019-07-29] MEDS ORDERED: Furosemide 40 MG/4 ML VIAL ONE (08:59)
[2019-07-29] MEDS: *HR* Heparin 5,000 UNIT/ML VIAL SQ SCH ×2 (13:19→22:36)
[2019-07-30] MEDS: D5% in Water 1,000 ML IVC SCH (03:02)
[2019-07-30] MEDS: Artificial Tears SOLN 15 ML BOTTLE BOTH EYES SCH ×6 (03:03→23:11)
[2019-07-30] MEDS: Dexmedetomidine HCl 400 MCG/100 ML MLS IVC SCH ×3 (03:06→21:00)
[2019-07-30 03:48] LABS: Basophils % 0.5 %; Eosinophils # 0.3 K/mcL (0.0-0.6); Eosinophils % 4.1 %; Hematocrit 27.3 % (37.5-50.1); Hemoglobin 8.2 g/dL (12.9-16.9); Immature Granulocytes % 0.3 % (0-4); Lymphocytes # 1.5 K/mcL (0.6-4.6); Lymphocytes % 18.4 %; Mean Corpuscular Hemoglobin 28.6 pg (28.0-33.3); Mean Corpuscular Volume 95.1 fL (83.0-100.0); Mean Platelet Volume 10.8 fL (9.4-12.4); Monocytes # 0.5 K/mcL (0.0-1.3); Monocytes % 6.6 %; Neutrophils # 5.5 K/mcL (1.6-8.9); Platelet Count 371 K/mcL (140-400); Red Blood Count 2.87 M/mcL (4.19-5.50); Red Cell Distribution Width 14.1 % (11.5-14.5); Segmented Neutrophils % 70.1 %; White Blood Count 7.9 K/mcL (4.3-11.1)
[2019-07-30] MEDS: Ipratropium 1 PUFF INHALER IH SCH ×4 (03:49→21:59)
[2019-07-30] MEDS: Insulin LISPRO 300 UNITS/3 ML VIAL SQ SCH ×6 (03:54→23:41)
[2019-07-30 04:01] LABS: ABG Base Excess 7 mEq/L (-2 to 3); ABG HCO3 32 mEq/L (21-27); ABG Oxygen Saturation 96 % (95-98); ABG PCO2 48 mmHg (35-45); ABG PH 7.43 pH Units (7.32-7.45); ABG PO2 82 mmHg (85-104); ABG TCO2 33 mEq/L (20-26); Blood Gas Modality ASSIST CONTROL; Blood Gas VT 500 cc
[2019-07-30 04:18] LABS: BUN/Creatinine Ratio 68 (6-26); Blood Urea Nitrogen 75 mg/dL (8-23); Calcium 8.9 mg/dL (8.6-10.3); Carbon Dioxide 27 mEq/L (23-29); Chloride 99 mEq/L (98-107); Glucose 314 mg/dL (70-105); Magnesium 2.1 mg/dL (1.6-2.6); Osmolality,Calculated 312 (280-300); Phosphorous 3.8 mg/dL (2.7-4.5); Potassium 3.6 mEq/L (3.5-5.1); Sodium 134 mEq/L (136-145); eGFR For African Americans > 60 (> 60); eGFR For Non-African Americans > 60 (> 60)
[2019-07-30] MEDS: *HR* Heparin 5,000 UNIT/ML VIAL SQ SCH ×3 (05:24→19:28)
[2019-07-30] MEDS: Aspirin 81 MG TAB.CHEW GTUBE SCH (08:14)
[2019-07-30] MEDS: Haloperidol Oral Conc 10 MG/5 ML UDC GTUBE SCH ×3 (08:14→23:11)
[2019-07-30] MEDS: cefTRIAXone 1,000 MG in Water for inj. (sterile) 10 ML IVP SCH (08:14)
[2019-07-30] MEDS: Chlorhexidine Rinse 15 ML MOUTHWASH MM SCH ×2 (08:14→19:27)
[2019-07-30] MEDS: Insulin DETEMIR 100 UNIT/ML X5UNITS SQ SCH ×2 (08:17→20:06)
[2019-07-30] MEDS: Lactobacillus 1 EACH CAP.SPRINK GTUBE SCH (08:17)
[2019-07-30] MEDS: Famotidine 20 MG/2 ML VIAL IVP SCH (08:17)
[2019-07-30] MEDS: Nystatin POWDER 30 GM BOTTLE TP SCH ×2 (08:18→19:28)
[2019-07-30] MEDS ORDERED: Potassium Chloride Elixir 20 MEQ/15 ML UDC GTUBE ONE (11:56)
[2019-07-31] MEDS ORDERED: *HR* HYDROmorphone (PF) 1 MG/ML SYRINGE IVP ONE (02:11)
[2019-07-31] MEDS: Ipratropium 1 PUFF INHALER IH SCH ×4 (03:48→22:09)
[2019-07-31] MEDS: Insulin LISPRO 300 UNITS/3 ML VIAL SQ SCH ×6 (04:08→23:52)
[2019-07-31] MEDS: Artificial Tears SOLN 15 ML BOTTLE BOTH EYES SCH ×6 (04:08→23:51)
[2019-07-31 04:37] LABS: Hematocrit 30.2 % (37.5-50.1); Hemoglobin 9.1 g/dL (12.9-16.9); Mean Corpuscular HGB Conc 30.1 g/dL (31.6-35.5); Mean Corpuscular Hemoglobin 28.9 pg (28.0-33.3); Mean Corpuscular Volume 95.9 fL (83.0-100.0); Platelet Count 406 K/mcL (140-400); Red Blood Count 3.15 M/mcL (4.19-5.50); Red Cell Distribution Width 14.2 % (11.5-14.5); White Blood Count 8.1 K/mcL (4.3-11.1)
[2019-07-31 04:58] LABS: BUN/Creatinine Ratio 68 (6-26); Blood Urea Nitrogen 69 mg/dL (8-23); Calcium 9.5 mg/dL (8.6-10.3); Carbon Dioxide 27 mEq/L (23-29); Chloride 101 mEq/L (98-107); Glucose 165 mg/dL (70-105); Magnesium 2.3 mg/dL (1.6-2.6); Osmolality,Calculated 306 (280-300); Phosphorous 4.9 mg/dL (2.7-4.5); Potassium 4.1 mEq/L (3.5-5.1); Sodium 136 mEq/L (136-145); eGFR For African Americans > 60 (> 60); eGFR For Non-African Americans > 60 (> 60)
[2019-07-31] MEDS: *HR* Heparin 5,000 UNIT/ML VIAL SQ SCH ×3 (05:37→20:55)
[2019-07-31] MEDS: cefTRIAXone 1,000 MG in Water for inj. (sterile) 10 ML IVP SCH (07:50)
[2019-07-31] MEDS: Haloperidol Oral Conc 10 MG/5 ML UDC GTUBE SCH ×3 (07:51→23:52)
[2019-07-31] MEDS: Famotidine 20 MG/2 ML VIAL IVP SCH (07:51)
[2019-07-31] MEDS: Aspirin 81 MG TAB.CHEW GTUBE SCH (07:51)
[2019-07-31] MEDS: Chlorhexidine Rinse 15 ML MOUTHWASH MM SCH ×2 (07:51→20:54)
[2019-07-31] MEDS: Lactobacillus 1 EACH CAP.SPRINK GTUBE SCH (07:51)
[2019-07-31] MEDS: Nystatin POWDER 30 GM BOTTLE TP SCH ×2 (08:40→20:55)
[2019-07-31] MEDS: Insulin DETEMIR 100 UNIT/ML X5UNITS SQ SCH ×2 (08:41→20:54)
[2019-07-31] MEDS: Dexmedetomidine HCl 400 MCG/100 ML MLS IVC SCH ×2 (11:07→23:51)
[2019-07-31] MEDS ORDERED: Dexamethasone 4 MG/ML VIAL IVP ONE (14:51)
[2019-07-31] MEDS ORDERED: Glycopyrrolate 0.2 MG/ML VIAL IVP PRN (14:53)
[2019-07-31] MEDS ORDERED: *HR* LORazepam 2 MG/ML VIAL IVP PRN (14:53)
[2019-07-31] MEDS ORDERED: *HR* FentaNYL (PF) 100 MCG/2 ML VIAL IVP PRN (14:54)
[2019-07-31 20:27] VITALS: BP 122/70
[2019-07-31] MEDS ORDERED: Ipratropium 1 PUFF INHALER IH PRN ×2 (23:49→23:50)
[2019-08-01] MEDS: Artificial Tears SOLN 15 ML BOTTLE BOTH EYES SCH ×2 (05:42→11:12)
[2019-08-01] MEDS: Insulin LISPRO 300 UNITS/3 ML VIAL SQ SCH (05:42)
[2019-08-01] MEDS: *HR* Heparin 5,000 UNIT/ML VIAL SQ SCH (05:42)
[2019-08-01] MEDS: Dexmedetomidine HCl 400 MCG/100 ML MLS IVC SCH ×2 (06:04→11:14)
[2019-08-01] MEDS: *HR* LORazepam 2 MG/ML VIAL IVP PRN ×2 (09:35→10:47)
[2019-08-01] MEDS: Chlorhexidine Rinse 15 ML MOUTHWASH MM SCH (11:13)
[2019-08-01] MEDS: Haloperidol Oral Conc 10 MG/5 ML UDC GTUBE SCH (11:13)
[2019-08-01] MEDS: Nystatin POWDER 30 GM BOTTLE TP SCH (11:14)
[2019-08-01] MEDS ORDERED: Scopolamine Patch 1.5 MG PATCH.TD72 TD SCH (12:00)
[2019-08-01] MEDS ORDERED: *HR* LORazepam 2 MG/ML VIAL IVP PRN (13:00)
== END 2019-08-01 18:30 | disposition expired ==
LOC: 3BNU 22:17 → EMEROOARM 22:17 → 3BNU 07-06 00:26 → SUATTDRO 07-06 12:01 → 2NENU 07-10 15:01 → 2ANU 07-10 17:46 → 2NNU 07-10 23:50 → 2NENU 07-25 17:29
PROVIDERS: ADMIT Student in an Organized Health Care Education/Training Program; ATTEND Internal Medicine